=== PATIENT | female | born 1990 | race Caucasian/White ===

== ENCOUNTER 2020-02-03 08:02 | Emergency (ER) | payer BC, SELFPAY ==
[2020-02-03 08:30] VITALS: BP 112/79; PULSE 74; RESP 16; TEMP 36.3; O2SAT 100
--- NOTE | 2020-02-03 08:38 | ED.GENADULT ---
HPI - General Adult General Chief complaint: Upper Respiratory Infection Stated complaint: sore throat Time Seen by Provider: 02/03/20 08:38 Source: patient and RN notes reviewed Mode of arrival: ambulatory Limitations: no limitations History of Present Illness HPI narrative: 29-year-old female presents with complaints of sore throat for 1 day. She arrived to work this morning and noted a , low-grade fever and was sent home. Tylenol last 05:00 with little relief. No high fevers, highest fever 99.6 Fahrenheit, temporal. No drooling, neck or throat swelling. Pain is bilateral. Hurts to swallow. Exacerbation factors consist of eating and drinking. No rhinorrhea or nasal congestion. No voice change. No nausea, vomiting, or abdominal pain. Tolerating liquids well. Denies chills, dyspnea, difficulty swallowing, jaw pain, dental pain, facial pain, foreign body sensation, and rash. Remains active. The patient reports she had COVID-19 12/26/19. The patient reports she is not waiting for the results of a COVID-19 lab test. The patient reports she do not have fever, chills, weakness, or fatigue. The patient reports she do not have a new or worsening cough or shortness of breath. Denies chest pain. The patient reports she do not have any loss of taste, and diarrhea. Denies recent traveling. Denies concerns for COVID-19 or exposures been home with limited outdoor exposure except for essential household needs, work, and return home. At this time, patient is not suspected of having COVID-19. Some parts of this dictation were generated by voice recognition software and may contain typographical and/or grammatical inaccuracies. Related Data Allergies Allergy/AdvReac Type Severity Reaction Status Date / Time latex Allergy Intermediate Itching Verified 02/03/20 08:37 morphine AdvReac Intermediate Rash Verified 02/03/20 08:37 Antibiotic Allergy Mild Itching Uncoded 11/20/14 14:38 Review of Systems Review of Systems: Narrative: CONSTITUTIONAL: Complains of low-grade fever. Denies chills, sweats. EYES: Denies visual changes, redness, discharge. ENT: Denies rhinorrhea, congestion, otalgia. Complains of sore throat. CARDIOVASCULAR: Denies chest pain, palpitations, edema. RESPIRATORY: Denies dyspnea, wheezing, cough. GASTROINTESTINAL: Denies abdominal pain, nausea, vomiting, diarrhea. SKIN: Denies rash or itching. MUSCULOSKELETAL: Denies acute back pain, joint pain, or myalgia. NEUROLOGIC: Denies numbness or focal weakness. PSYCHIATRIC: Denies anxiety or depression. All systems reviewed & are unremarkable except as noted in HPI and below. [facility] Past Medical History Medical History (Updated 02/03/20 @ 08:43 by ANA Soto) , ectopic Surgical History Surgical History (Updated 02/03/20 @ 09:24 by ANA Soto) History of cholecystectomy History of salpingo-oophorectomy Unknown which side, Roxana believes it was the Right Family History Family History (Updated 02/03/20 @ 09:18 by ANA Soto) Father Alive and well Mother Hypertension Social History Social History (Updated 02/03/20 @ 09:18 by ANA Soto) Smoking status: Never smoker Tobacco type: cigarettes Second hand tobacco smoke exposure: No Alcohol intake: never Substance use: never Living arrangements: with family Occupation/Education: occupation Gender identity (if verbalized by the patient): Female Sexual Orientation (if Verbalized by the Patient): Straight or Heterosexual Comments At time of signature, agree with nurse past medical, surgical, social, and family history. There is no relevant family history pertinent to the presenting complaint. Exam Narrative: Exam Narrative: GENERAL: This is a well-nourished, well-developed patient, in no apparent distress. Speaks in full sentences without deficits and ambulates with steady gait without dyspnea. HEAD: normocephalic, atraumati
== END 2020-02-03 09:00 | disposition home or self-care (01) ==
PROVIDERS: Emergency Provider Nurse Practitioner Family
DX: J02.9 Acute pharyngitis, unspecified (principal)
CPT/HCPCS: 87081; 87804; 87880; 99213; G0463

== ENCOUNTER 2020-03-02 13:36 | Emergency (ER) | payer BC, SELFPAY ==
[2020-03-02 13:48] VITALS: BP 108/76; PULSE 76; RESP 16; TEMP 37.1; O2SAT 97
--- NOTE | 2020-03-02 13:52 | ED.GENADULT ---
HPI - General Adult General Chief complaint: Dental/Oral Stated complaint: JAW PAIN Time Seen by Provider: 03/02/20 13:48 Source: patient and RN notes reviewed Mode of arrival: ambulatory Limitations: no limitations History of Present Illness HPI narrative: 30-year-old female presents with complaints of left lower dental pain for the past 7 days. Roxana reports increase in LT dental pain for the past 72 hours with radiating pain into LT ear. Ibuprofen (last 02/29/20), Tylenol (last 02/28/20), and Aleve (last today at 05:10) without relief. Denies any drainage. No fever. No jaw swelling. No neck swelling. No limitation with speaking or swallowing. Has history of dental caries. Has not seen a dentist recently. No dental trauma. No oral lesions. Exacerbating factors consist of chewing on LT side, eating and drinking cold items. No relieving factors. No dentures or bridges. Tolerating liquids well. The patient reports she had COVID-19 12/26/19, no recent diagnose of COVID-19. The patient reports she is not waiting for the results of a COVID-19 lab test. The patient reports she do not have chills, weakness, or fatigue. The patient reports she do not have a new or worsening cough or shortness of breath. Denies chest pain. The patient reports she do not have any rhinorrhea, congestion, sore throat, loss of taste or smell, nausea, vomiting, abdominal pain, and diarrhea. Denies recent traveling. Denies concerns for COVID-19 or exposures been home with limited outdoor exposure except for essential household needs, work, and return home. At this time, patient is not suspected of having COVID-19. Complaints of left lower abdomen pain for 1 day. Roxana reports intermittent LT lower abdominal pain is sharp and stabbing. Aleve today without relief. History of Polycystic ovarian syndrome. No significant pelvic pain. No vaginal discharge. No concerns for STDs. No fever or chills. No nausea, vomiting, or diarrhea. No flank pain. No exacerbating factors. Denies dysuria, hematuria, and vaginal bleeding. No blood in stool or constipation. Last BM today 03/02/2020, normal. Urine output with in normal limits. LMP 12/30/19 concerned she is even after having 2 NEGATIVE HCG test at home. Some parts of this dictation were generated by voice recognition software and may contain typographical and/or grammatical inaccuracies. Related Data Home Medications Medication Instructions Recorded Confirmed letrozole mg 03/02/20 metformin mg 03/02/20 Allergies Allergy/AdvReac Type Severity Reaction Status Date / Time latex Allergy Intermediate Itching Verified 02/03/20 08:37 morphine AdvReac Intermediate Rash Verified 02/03/20 08:37 Antibiotic Allergy Mild Itching Uncoded 11/20/14 14:38 Review of Systems Review of Systems: Narrative: CONSTITUTIONAL: Denies fever, chills, sweats. EYES: Denies visual changes, redness, discharge. ENT: Denies rhinorrhea, congestion, sore throat, otalgia. Complains of LT lower dental pain. CARDIOVASCULAR: Denies chest pain, palpitations, edema. RESPIRATORY: Denies dyspnea, wheezing, cough. GASTROINTESTINAL: Complains of LT lower abdominal pain. Deies nausea, vomiting, diarrhea. GENITOURINARY: Denies dysuria, hematuria, abnormal discharge. SKIN: Denies rash or itching. MUSCULOSKELETAL: Denies acute back pain, joint pain, or myalgia. NEUROLOGIC: Denies numbness or focal weakness. PSYCHIATRIC: Denies anxiety or depression. All systems reviewed & are unremarkable except as noted in HPI and below. ON LICENSE OF [facility] Past Medical History Medical History (Updated 03/03/20 @ 00:00 by Aimee Daernestina) History of PCOS , ectopic Surgical History Surgical History History of cholecystectomy History of salpingo-oophorectomy Unknown which side, Roxana believes it was the Right Family History Family History (Reviewed 03/02/20 @ 15:20 by Emily
== END 2020-03-02 14:39 | disposition home or self-care (01) ==
PROVIDERS: Emergency Provider Nurse Practitioner Family; PCP Family Medicine
DX: K08.89 Other specified disorders of teeth and supporting structures (principal); K02.9 Dental caries, unspecified; R10.32 Left lower quadrant pain; E28.2 Polycystic ovarian syndrome
CPT/HCPCS: 81003; 81025; 99213; G0463

== ENCOUNTER → 2020-03-30 20:06 | Emergency (ER) | payer BC, SELFPAY | END | disposition left against medical advice (07) | PROVIDERS: PCP Family Medicine | DX: Z53.21 Procedure and treatment not carried out due to patient leaving prior to being seen by health care provider (principal) | CPT/HCPCS: 99199 ==

== ENCOUNTER 2020-05-28 09:24 | Emergency (ER) | payer OTHER, BC, SELFPAY ==
[2020-05-28 09:29] VITALS: BP 112/75; PULSE 86; RESP 18; TEMP 36.3; O2SAT 100
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
[2020-05-28] MEDS: ACETAMINOPHEN 500 MG TABLET 1000 MG PO (10:37)
== END 2020-05-28 10:48 | disposition home or self-care (01) ==
PROVIDERS: Emergency Provider Emergency Medicine; PCP Family Medicine
DX: S09.90XA Unspecified injury of head, initial encounter (principal); E28.2 Polycystic ovarian syndrome; V43.02XA Car driver injured in collision with other type car in nontraffic accident, initial encounter
CPT/HCPCS: 99282; A9270

== ENCOUNTER 2020-09-24 10:06 | Outpatient (CLI) | payer BC, SELFPAY ==
[2020-09-28 05:32] LABS: Prolactin 13.3 ng/mL (***)
== END 2020-09-24 10:07 | disposition home or self-care (01) ==
PROVIDERS: PCP Family Medicine; Visit Provider Surgery
DX: N64.4 Mastodynia (principal); N64.52 Nipple discharge
CPT/HCPCS: 36415; 84146; 84703

== ENCOUNTER 2020-11-09 10:20 | Outpatient (CLI) | payer BC, SELFPAY ==
--- NOTE | ~2020-11-09 | MM_ITS ---
MM ductogram single duct RT DATE: 11/09/2020 11:37 INDICATION: Right nipple discharge TECHNIQUE: The purpose of the procedure, technique and potential competitions were discussed with the patient. The patient indicated understanding and gave consent. Timeout procedure confirmed proper patient, procedure and proper side. After sterile preparation of the nipple, some milky discharge was elicited by manual compression of t he breast. A stylette was placed at the opening of the discharging duct. The stylet was taped. 3 sepa rate attempted injections were made, with exposure of a single mammographic image each time. There is considerable resistance to the injection. There was no contrast opacification of the ducts despite 3 successive attempts. IMPRESSION: Unsuccessful galactogram, with inability to opacify the ducts proximal to the discharging duct orifice Consider MRI imaging for further evaluation. Reviewed, dictated and finalized at [facility]. Reviewed, dictated and finalized at [facility]. IMPRESSION: Unsuccessful galactogram, with inability to opacify the ducts proxi mal to the discharging duct orifice Consider MRI imaging for further evaluation.
== END 2020-11-09 10:21 | disposition home or self-care (01) ==
PROVIDERS: PCP Family Medicine; Visit Provider Surgery
DX: N64.52 Nipple discharge (principal)
CPT/HCPCS: 77053; Q9966

== ENCOUNTER 2020-12-08 10:33 | Outpatient (CLI) | payer BC, SELFPAY ==
--- NOTE | ~2020-12-08 | MR_ITS ---
MR breast BI wo/w con 12/08/2020 12:52 CDT INDICATION: Nipple discharge TECHNIQUE: MRI of the breasts perform using standard protocol pre-and post IV contrast with the follo wing sequences: Axial T2 STIR, axial T1, axial vibrant T1 with fat suppression precontrast and multip hasic postcontrast. COMPARISON: Outside mammograms dated 09/17/[address] [facility] and [place], [place] FINDINGS: There are no abnormalities on the precontrast sequences. There is mild background parenchym al enhancement. No enhancing lesions following contrast administration. No areas of enhancement jorge ting threshold criteria on CAD analysis. No evidence of signal abnormalities in the axillary or inte rnal mammary node distributions. LEFT BREAST: No signal abnormalities on precontrast sequences. There is mild background parenchymal enhancement. There is a round mass in the central aspect of the left breast measuring 8 x 7 x 6 mm wi th rapid plateau enhancement. Mass is located 5.5 cm posterior to the nipple and 3.7 cm to the skin s urface. No evidence of signal abnormalities in the axillary or internal mammary node distributions. IMPRESSION: 1: Right breast: Negative. No evidence of malignancy. BI-RADS category 1. Recommend annual mammo graphy follow-up. 2: Left breast: 8 mm left breast mass located centrally with rapid plateau enhancement. Left breast ultrasound examination recommended. BI-RADS CATEGORY 0 - INCOMPLETE STUDY, NEED ADDITIONAL IMAGING EVALUATION. Reviewed, dictated and finalized at [facility]. IMPRESSION: 1: Right breast: Negative. No evidence of malignancy. BI-RADS category 1. Recommend annual mammography follow-up. 2: Left breast: 8 mm left breast mass located centrally with rapid plateau enh ancement. Left breast ultrasound examination recommended. BI-RADS CATEGORY 0 - INCOMPLETE STUDY, NEED ADDITIONAL IMAGING EVALUATION.
[2020-12-08 10:57] LABS: Estimated Glomerular Filt Rate > 60
== END 2020-12-08 10:34 | disposition home or self-care (01) ==
PROVIDERS: PCP Family Medicine; Visit Provider Surgery
DX: N64.52 Nipple discharge (principal); N63.25 Unspecified lump in the left breast, overlapping quadrants
CPT/HCPCS: 77049; A9577; C8908

== ENCOUNTER 2020-12-13 04:53 | Emergency (ER) | payer BC, SELFPAY ==
--- NOTE | ~2020-12-13 | XR_ITS ---
EXAMINATION: XR chest 1V portable DATE: 12/13/2020 05:39 INDICATION: Chest pain. TECHNIQUE: A single frontal view of the chest was obtained. COMPARISON: None. FINDINGS: The chest demonstrates clear lungs without pneumonia, pleural effusion, or pneumothorax. Th e heart size is normal. IMPRESSION: 1. No acute cardiopulmonary disease. Reviewed, dictated and finalized at [facility]. 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
--- NOTE | ~2020-12-13 | CT_ITS ---
EXAMINATION: CT soft tissue neck w con DATE: 12/13/2020 06:58 INDICATION: Left-sided neck and throat pain. TECHNIQUE: Computed tomography (CT) of the neck was performed with 75 mL Omnipaque-350 intravenous co ntrast. Automated exposure control and iterative reconstruction technique were employed. The dose-ling gth product was 528.51 mGy-cm. COMPARISON: None FINDINGS: The palatine tonsils are enlarged. The adenoids and lingual tonsils are normal. There are n o pathologically enlarged lymph nodes. The cervical carotid arteries are normal. There is a mucous re tention cyst in left maxillary sinus. The mastoid air cells are normal. There are carious lesions of teeth 18 and 2. IMPRESSION: 1. Enlarged palatine tonsils, consistent with inflammation/infection. No abscess. 2. Dental disease. Reviewed, dictated and finalized at location [facility]. ENSATION AND HRIS ANALYST IMPRESSION: 1. Enlarged palatine tonsils, consistent with inflammation/infection. No absces s. 2. Dental disease.
--- NOTE | 2020-12-13 05:04 | ECG_ITS ---
Measurements Intervals [facility] Rate: 71 P: 6 AK: 126 QRS: 37 QRSD: 86 T: 19 QT: 386 QTc: 421 Interpretive Statements SINUS RHYTHM BASELINE ARTIFACT- I, II, III, AVR, AVL, AVF, V2 NORMAL ECG Electronically Signed On 12-13-2020 6:28:38 [employer] by Kole Richardson D.O.
[2020-12-13 05:08] VITALS: PULSE 66
[2020-12-13 05:10] VITALS: BP 115/82; PULSE 77; RESP 17; O2SAT 100
--- NOTE | 2020-12-13 05:17 | ED.CHESTPAIN ---
HPI - Chest Pain General Chief Complaint: Chest Pain Stated Complaint: CP, left facial numbness Time Seen by Provider: 12/13/20 05:03 Source: RN notes reviewed History of Present Illness HPI narrative: Patient presents emergency department from home for multiple complaints. Patient states over the past several weeks has been having intermittent midsternal chest pain she states the pain will usually last for several seconds be midsternal head and resolved she states that this evening she awoke from sleep with pain in her midsternal chest lasted for approximately 5 minutes and resolved she notes mild associated shortness of breath pain does not radiate she denies any coughing abdominal pain nausea vomiting diarrhea or any other symptoms this evening when she woke she also had severe pain in her left neck and face pain radiates from the left lower jaw up into the face she denies any definitive dental pain Related Data Allergies Allergy/AdvReac Type Severity Reaction Status Date / Time latex Allergy Intermediate Itching Verified 09/24/20 08:56 morphine Allergy Intermediate Hives Verified 09/24/20 08:56 sulfamethoxazole Allergy Hives Verified 09/24/20 08:56 [From Bactrim] tramadol Allergy Hives Verified 09/24/20 08:56 trimethoprim [From Bactrim] Allergy Hives Verified 09/24/20 08:56 Review of Systems Review of Systems: Gen.: Denies fevers or chills Eyes: Denies eye pain or visual change ENT: Denies congestion reports facial pain on left side Respiratory: Reports shortness of breath with chest pain CV: See HPI GI: Denies abdominal pain nausea, emesis or diarrhea Musculoskeletal: Denies back pain or muscle pain Neuro: Denies numbness, tingling, weakness or focal weakness Skin: Denies rash Except as documented, all other systems reviewed and negative [facility] Past Medical History Medical History History of kidney stones History of PCOS , ectopic Surgical History Surgical History History of cholecystectomy History of salpingo-oophorectomy Unknown which side, Roxana believes it was the Right Family History Family History Father Alive and well Hypertension Diabetes mellitus Mother Hypertension Social History Social History Smoking status: Never smoker Tobacco type: cigarettes Second hand tobacco smoke exposure: No Alcohol intake: never Substance use: never Additional occupation/education comments: [employer] Gender identity (if verbalized by the patient): Female Sexual Orientation (if Verbalized by the Patient): Straight or Heterosexual Exam Narrative: APPEARANCE: No acute distress, nontoxic, resting in bed EYES: EOMI HEENT: Normocephalic, atraumatic, TMs clear bilaterally nares patent or mucosa moist erythema exudate posterior pharynx no dental pain no sublingual or tenderness tender palpation of the left submandibular region up into the left lateral face in front of the left ear there is no overlying erythema no definitive swelling no tenderness of the right side of the face sensation is equal in the bilateral face RESPIRATORY: No respiratory distress Clear to auscultation bilaterally with no rhonchi wheezing or rales. CARDIOVASCULAR: Regular rate and rhythm without murmurs rubs or gallops. ABDOMINAL: Soft, nontender, nondistended, no rebound or guarding MUSCULOSKELETAl: Moves all extremities. No clubbing, cyanosis or edema. NEURO: Awake and alert. Following commands, speech normal, no focal deficits, no facial droop SKIN:: Warm, dry. No rashes lesions or abrasions PSYCHIATRIC: Normal affect/mood, Course Course Emergency Course: Patient meets PERC rule criteria and no further testing needs to be performed for pulmonary embolism. Review old records patient has had mild
[2020-12-13 05:36] LABS: Basophils Percent Auto 0.6 % (0.2-1.2); Eosinophils Absolute Auto 0.2 K/mm3 (0-0.3); Immature Granulocyte Absolute 0.03 K/mm3 (0.00-0.031); Immature Granulocyte Percent A 0.4 % (0-0.5); Lymphocytes Absolute Auto 2.22 K/mm3 (0.9-3.2); Lymphocytes Percent Auto 32.2 % (18.3-44.2); Mean Corpuscular HGB Conc 33.3 g/dl (32-36); Mean Corpuscular Hemoglobin 30.2 pg (26-34); Mean Corpuscular Volume 90.7 fl (80-100); Mean Platelet Volume 9.6 fl (7.4-10.4); Monocytes Absolute Auto 0.6 K/mm3 (0.1-0.6); Monocytes Percent Auto 9.1 % (2.6-8.5); Neutrophils Absolute Auto 3.8 K/mm3 (1.3-6.7); Neutrophils Percent Auto 54.7 % (45.5-73.1); Platelet Count Result 284 k/mm3 (150-375); Red Cell Distribution Width 12.9 % (11.5-14.5); White Blood Count 6.9 K/mm3 (4.5-10.0)
[2020-12-13 05:48] LABS: Alanine Aminotransferase 61 U/L (4-35); Albumin Level 4.2 g/dL (3.5-5.1); Alkaline Phosphatase 89 U/L (38-126); Anion Gap 8 mmol/L (8-16); Aspartate Amino Transferase 44 U/L (14-36); Bilirubin,Total 0.4 mg/dL (0.2-1.3); Blood Urea Nitrogen 17 mg/dL (7-17); Calcium 9.1 mg/dL (8.4-10.2); Carbon Dioxide 27 mmol/L (22-30); Chloride 103 mmol/L (98-107); Estimated CRCL calculation 73 ml/min; Estimated Glomerular Filt Rate > 60; Glucose 122 mg/dL (65-110); Lipase 106 U/L (23-300); Potassium 3.8 mmol/L (3.4-5.0); Sodium 138 mmol/L (137-145)
[2020-12-13 05:59] LABS: Troponin I < 0.012 ng/mL (0.000-0.034)
[2020-12-13 06:47] LABS: INR 0.9; Partial Thromboplastin Time 26.8 SECONDS (22.3-36.8); Prothrombin Time 12.1 Seconds (11.1-14.7)
[2020-12-13 06:56] LABS: Add Urine Microscopic? YES; Appearance Urine Cloudy (Clear); Bacteria Urine Trace /hpf; Bilirubin Urine Negative (Negative); Blood Urine 1+ (Negative); Color Urine Yellow (Yellow); Glucose Urine UA Negative (Negative); Ketones Urine Negative (Negative); Leukocyte Esterase Ur Negative LEU/UL (Negative); Mucus Urine Heavy /lpf; Nitrate Urine Negative (Negative); Protein Urine Negative (Negative); Squamous Epithelial Cell Urine Many /hpf (Few); Urobilinogen Urine Negative mg/dL (<2.0); WBC Urine 16-20 /hpf
[2020-12-13 07:11] LABS: Specific Grav Ur 1.034 (1.001-1.035)
[2020-12-13 07:55] VITALS: BP 103/64; PULSE 78; RESP 16; O2SAT 98
== END 2020-12-13 07:57 | disposition home or self-care (01) ==
PROVIDERS: Emergency Provider Emergency Medicine; PCP Family Medicine
DX: R07.89 Other chest pain (principal); M54.2 Cervicalgia
CPT/HCPCS: 36415; 70491; 71045; 80053; 81001; 81025; 83690; 84484; 85025; 85610; 85730; 87081; 87086; 87880; 93005; 96365; 99284; J0131; Q9967

== ENCOUNTER 2021-01-20 10:26 | Outpatient (CLI) | payer BC, SELFPAY ==
--- NOTE | ~2021-01-20 | US_ITS ---
US breast LT complete DATE: 01/20/2021 11:01 INDICATION: Nipple discharge. Left breast mass detected on MR examination. TECHNIQUE: High-resolution Second Look ultrasound imaging was performed for a mass reported in the ce ntral left breast on 12/08/2020 MRI breast examination. Reportedly negative outside recent mammogram and ultrasound examinations. COMPARISON: 12/08/2020 MR breast examination FINDINGS: Imaging by the technologist and by myself as well reveals no evidence of right breast mass lesion. IMPRESSION: BI-RADS Category 4: Suspicious abnormality; biopsy should be considered Recommendation: MR guided breast biopsy; this can be performed at [facility] or [facility] at [facility]. Reviewed, dictated and finalized at [facility]. Reviewed, dictated and finalized at location [facility]. 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
== END 2021-01-20 10:27 | disposition home or self-care (01) ==
LOC: ANHIMG 10:29
PROVIDERS: PCP Family Medicine; Visit Provider Surgery
DX: N63.20 Unspecified lump in the left breast, unspecified quadrant (principal); R92.8 Other abnormal and inconclusive findings on diagnostic imaging of breast
CPT/HCPCS: 76641

== ENCOUNTER 2021-04-18 05:20 | Emergency (ER) | payer BC, SELFPAY ==
[2021-04-18 05:23] VITALS: BP 121/72; PULSE 70; RESP 15; TEMP 37; O2SAT 98
--- NOTE | 2021-04-18 06:06 | ED.GENADULT ---
HPI - General Adult General Chief complaint: Dental/Oral Stated complaint: toothache Time Seen by Provider: 04/18/21 05:59 History of Present Illness HPI narrative: Patient is a 31-year-old female presents the emergency department with chief complaint of dental pain. The patient reports he was seen by a dentist earlier this week and was started on clindamycin due to an allergy to amoxicillin. Patient states that she has a cracked tooth that is scheduled to be removed on Sunday. The patient states she has been unable to sleep this evening and reports the pain is worse with movement and improved with rest. Patient denies trismus denies swelling Related Data Home Medications Medication Instructions Recorded Confirmed clindamycin HCl 04/18/21 Allergies Allergy/AdvReac Type Severity Reaction Status Date / Time latex Allergy Intermediate Itching Verified 09/24/20 08:56 morphine Allergy Intermediate Hives Verified 09/24/20 08:56 sulfamethoxazole Allergy Hives Verified 09/24/20 08:56 [From Bactrim] tramadol Allergy Hives Verified 09/24/20 08:56 trimethoprim [From Bactrim] Allergy Hives Verified 09/24/20 08:56 Review of Systems Review of Systems: A 10 system review of systems was completed on the patient and is negative except for what is stated in the HPI. Nursing and ancillary documentation was reviewed. PMFSH Past Medical History Medical History History of kidney stones History of PCOS , ectopic Surgical History Surgical History History of cholecystectomy History of salpingo-oophorectomy Unknown which side, Roxana believes it was the Right Family History Family History Father Alive and well Hypertension Diabetes mellitus Mother Hypertension Social History Social History Smoking status: Never smoker Tobacco type: cigarettes Second hand tobacco smoke exposure: No Alcohol intake: never Substance use: never Additional occupation/education comments: [employer] Gender identity (if verbalized by the patient): Female Sexual Orientation (if Verbalized by the Patient): Straight or Heterosexual Exam Narrative: GENERAL: Well-appearing, well-nourished, and in no acute distress. HEAD: Normocephalic, atraumatic. EYES: PERRLA and EOMI. ENT: Nares clear, no rhinorrhea or epistaxis. Mucous membranes moist. There is a fracture of the left posterior molar on the mandible NECK: Supple. CHEST: Clear to auscultation. No respiratory distress. HEART: Regular rate and rhythm. No murmur heard. Normal peripheral pulses. ABDOMEN: Soft, nontender, nondistended, normal active bowel sounds. EXTREMITIES: Normal range of motion. No edema. SKIN: Warm, dry, no rash. NEURO: No focal deficits. Alert and oriented x3. PSYCH: Normal mood and affect. Course Vital Signs Vital signs: Vital Signs Temperature 37.0 C 04/18/21 05:23 Pulse Rate 70 04/18/21 05:23 Respiratory Rate 15 04/18/21 05:23 Blood Pressure 121/72 04/18/21 05:23 Pulse Oximetry 98 04/18/21 05:23 Temperature 37.0 C 04/18/21 05:23 Pulse Rate 70 04/18/21 05:23 Respiratory Rate 15 04/18/21 05:23 Blood Pressure 121/72 04/18/21 05:23 Pulse Oximetry 98 04/18/21 05:23 Medical Decision Making Vital Signs Vital Signs: Vital Signs Temperature 37.0 C 04/18/21 05:23 Pulse Rate 70 04/18/21 05:23 Respiratory Rate 15 04/18/21 05:23 Blood Pressure 121/72 04/18/21 05:23 Pulse Oximetry 98 04/18/21 05:23 Temperature 37.0 C 04/18/21 05:23 Pulse Rate 70 04/18/21 05:23 Respiratory Rate 15 04/18/21 05:23 Blood Pressure 121/72 04/18/21 05:23 Pulse Oximetry 98 04/18/21 05:23 Discharge Plan Discharge Clinical Impressio
[2021-04-18] MEDS: HYDROcodone/acetaminophen (*CRX) 5-325 MG TABLET 1 TAB PO (06:14)
[2021-04-18 06:18] VITALS: BP 124/72; PULSE 68; RESP 16; O2SAT 99
== END 2021-04-18 06:21 | disposition home or self-care (01) ==
PROVIDERS: Emergency Provider Emergency Medicine; PCP Family Medicine
DX: K08.89 Other specified disorders of teeth and supporting structures (principal); Z87.442 Personal history of urinary calculi; E28.2 Polycystic ovarian syndrome
CPT/HCPCS: 99283; A9270

== ENCOUNTER 2021-11-04 11:54 | Emergency (ER) | payer BC, SELFPAY ==
--- NOTE | ~2021-11-04 | US_ITS ---
EXAMINATION: US OB <=14 wk fetus w TV DATE: 11/04/2021 13:38 INDICATION: Pelvic pain TECHNIQUE: Real-time pelvic ultrasound utilizing both a transvaginal and transabdominal probe was pe rformed. The interpreting radiologist was not present for the study. COMPARISON: None. FINDINGS: The uterus measures 8.7 x 7.0 x 8.5 cm. There is an intrauterine gestational sac.A single living fet us with The crown rump length measures 5.7 cm, which correlates with an estimated gestational age of 12 weeks and 2 days. heart motion is identified measuring 159 beats per minute (bpm) by M-mode Doppler. Of normal cervical length of 4.0 cm. The right ovary measures 3.2 x 1.8 x 2.5 cm. The left ovary measures 2.6 x 2.0 x 2.4 cm. Vascular elise w identified in both ovaries on color Doppler. There is no free fluid in the pelvis. IMPRESSION: 1. Single living fetus with heart rate of 159 bpm. 2. Gestational age by ultrasound of 12 weeks 2 day(s) +/- 1 week and 1 day(s) with ultrasound estima dea date of delivery (YOBANI) of 05/17/2022. Reviewed, dictated and finalized at location A. IMPRESSION: 1. Single living fetus with heart rate of 159 bpm. 2. Gestational age by ultrasound of 12 weeks 2 day(s) +/- 1 week and 1 day(s) with ultrasound estimated date of delivery (YOBANI) of 05/17/2022.
[2021-11-04 12:00] VITALS: BP 136/82; PULSE 99; RESP 18; TEMP 36.3; O2SAT 100
[2021-11-04 12:53] LABS: Alkaline Phosphatase 60 U/L (38-126)
[2021-11-04 12:54] LABS: Alanine Aminotransferase 19 U/L (6-35); Aspartate Amino Transferase 19 U/L (14-36); Blood Urea Nitrogen 9 mg/dL (7-17); Calcium 9.1 mg/dL (8.4-10.2); Carbon Dioxide 20 mmol/L (22-30); Chloride 103 mmol/L (98-107); Estimated Glomerular Filt Rate > 60
[2021-11-04 12:55] LABS: Anion Gap 10 mmol/L (8-16); Bilirubin,Total 0.6 mg/dL (0.2-1.3); Glucose 100 mg/dL (65-110); Lipase 64 U/L (23-300); Potassium 3.5 mmol/L (3.4-5.0); Sodium 133 mmol/L (137-145)
--- NOTE | 2021-11-04 12:55 | ED.ABDPAIN ---
HPI - Abdominal Pain General Chief Complaint: Abdominal Pain Stated Complaint: 12 wks preg, cramping Time Seen by Provider: 11/04/21 12:23 Source: patient Mode of arrival: ambulatory Limitations: no limitations History of Present Illness HPI narrative: This is a 31 year old female approximately 12 weeks GA who presents for evaluation pelvic pain. Patient states she has having intermittent sharp migratory pain in her pelvic. Her pain occurs briefly and resolves. She denies any exacerbating factors. She took tylenol prior to arrival to ER. She has nausea and vomiting that has been consistent throughout her . She was just started on odansteron yesterday. She denies fever, chills, dysuria, vaginal bleeding or abnormal vaginal discharge . She is receiving care at [facility] due to IVF treatments. Related Data Home Medications Medication Instructions Recorded Confirmed ondansetron HCl 4 mg tablet 4 mg PO Q8H PRN Nausea 11/04/21 11/04/21 Allergies Allergy/AdvReac Type Severity Reaction Status Date / Time latex Allergy Intermediate Itching Verified 11/04/21 12:12 morphine Allergy Intermediate Hives Verified 11/04/21 12:12 sulfamethoxazole Allergy Hives Verified 11/04/21 12:12 [From Bactrim] tramadol Allergy Hives Verified 11/04/21 12:12 trimethoprim [From Bactrim] Allergy Hives Verified 11/04/21 12:12 Review of Systems Review of Systems: All systems reviewed & are unremarkable except as noted in HPI and below Constitutional: Constitutional: Denies chills, Denies fatigue and Denies fever(s) Gastrointestinal: Gastrointestinal: Reports abdominal pain, Denies diarrhea, Reports nausea and Reports vomiting Genitourinary: Genitourinary: Denies abnormal vaginal bleeding, Denies nocturia and Reports pelvic pain Musculoskeletal: Musculoskeletal: Denies back pain [facility] Past Medical History Medical History History of kidney stones History of PCOS , ectopic Surgical History Surgical History History of cholecystectomy History of salpingo-oophorectomy Unknown which side, Roxana believes it was the Right Family History Family History Father Alive and well Hypertension Diabetes mellitus Mother Hypertension Social History Social History Smoking status: Never smoker Tobacco type: cigarettes Second hand tobacco smoke exposure: No Alcohol intake: never Substance use: never Additional occupation/education comments: [employer] Gender identity (if verbalized by the patient): Female Sexual Orientation (if Verbalized by the Patient): Straight or Heterosexual Exam Narrative: GENERAL: Well-appearing, well-nourished, and in no acute distress. HEAD: Normocephalic, atraumatic EYES: EOMI, conjunctiva clear without discharge THROAT:Mucous membranes moist, Oropharynx normal without erythema, exudate, peritonsillar swelling or fluctuance NECK: Supple, without lymphadenopathy or mass RESPIRATORY: No respiratory distress, Airway patent, Respirations non-labored, Clear to auscultation without rales, rhonchi or wheeze HEART: Regular rate and rhythm. No murmur heard. Normal peripheral pulses. ABDOMEN: Soft, nontender, nondistended, normal active bowel sounds. No masses. No rebound or guarding, No organomegaly. EXTREMITIES: No edema, normal strength with full range of motion. SKIN: Warm, dry, normal color without rash NEURO: Alert and oriented x3. CN 2-12 grossly intact. No focal deficits. PSYCH: Normal mood and affect. Course Reevaluation(s) Reevaluation #1: Patient states she feels better. US is unremarkable. Labs are unremarkable. She may be having cramping for dehydrations. Date: 11/04/21 Time: 14:45 Vital Signs Vital si
[2021-11-04] MEDS: LACTATED RINGERS 1,000 ML 999 ML IV CONT (13:03)
[2021-11-04 13:17] LABS: Basophils Absolute Auto 0.1 K/mm3 (0.0-0.1); Basophils Percent Auto 0.5 % (0.2-1.2); Eosinophils Absolute Auto 0.1 K/mm3 (0-0.3); Eosinophils Percent Auto 1.4 % (0-4.4); Hematocrit 39.2 % (37.0-47.0); Hemoglobin 13.4 g/dL (12.0-15.0); Immature Granulocyte Absolute 0.07 K/mm3 (0.00-0.031); Immature Granulocyte Percent A 0.7 % (0-0.5); Mean Corpuscular HGB Conc 34.2 g/dl (32-36); Mean Corpuscular Volume 87.9 fl (80-100); Monocytes Absolute Auto 0.8 K/mm3 (0.1-0.6); Monocytes Percent Auto 7.8 % (2.6-8.5); Neutrophils Absolute Auto 6.8 K/mm3 (1.3-6.7); Neutrophils Percent Auto 67.6 % (45.5-73.1); Platelet Count Result 393 k/mm3 (150-375); Red Blood Count 4.46 M/mm3 (4.2-5.4); Red Cell Distribution Width 13.2 % (11.5-14.5)
[2021-11-04 13:25] LABS: Appearance Urine Cloudy (Clear); Bilirubin Urine 1+ (Negative); Blood Urine Trace-lysed (Negative); Glucose Urine UA Negative (Negative); Ketones Urine 3+ mg/dL (Negative); Leukocyte Esterase Ur Negative LEU/UL (Negative); Nitrate Urine Negative (Negative); Protein Urine 1+ mg/dL (Negative); Specific Grav Ur >= 1.030 (1.001-1.035); Urobilinogen Urine 0.2 mg/dL (<2.0); pH Urine 5.5 (5.0-9.0)
[2021-11-04 13:26] LABS: Add Urine Microscopic? YES; Color Urine Dark Yellow (Yellow)
[2021-11-04 13:33] LABS: Bacteria Urine Trace /hpf; Mucus Urine Heavy /lpf; Squamous Epithelial Cell Urine Many /hpf (Few)
[2021-11-04] MEDS: DEXTROSE 5%/LACTATED RINGERS 1,000 ML 1000 ML IV CONT (14:14)
[2021-11-04 15:48] VITALS: BP 122/60; PULSE 74; RESP 16; TEMP 36.8; O2SAT 100
== END 2021-11-04 15:49 | disposition home or self-care (01) ==
PROVIDERS: Emergency Provider General Practice
DX: O26.891 Other specified pregnancy related conditions, first trimester (principal); R10.2 Pelvic and perineal pain; R82.71 Bacteriuria; O99.281 Endocrine, nutritional and metabolic diseases complicating pregnancy, first trimester; E86.0 Dehydration; E28.2 Polycystic ovarian syndrome; Z3A.12 12 weeks gestation of pregnancy; Z90.79 Acquired absence of other genital organ(s); Z90.721 Acquired absence of ovaries, unilateral; Z87.442 Personal history of urinary calculi
CPT/HCPCS: 36415; 76801; 76817; 80053; 81001; 83690; 85025; 87086; 87088; 96360; 96361; 99284; J7120; J7121

== ENCOUNTER 2022-01-30 15:16 | Outpatient (RCR) | payer BC, SELFPAY ==
[2022-01-30 16:00] VITALS: BP 110/74; PULSE 103
== END 2022-04-30 23:59 | disposition home or self-care (01) ==
LOC: ANHOBOP 15:16
PROVIDERS: Visit Provider Obstetrics & Gynecology
DX: O36.8120 Decreased fetal movements, second trimester, not applicable or unspecified (principal); Z3A.24 24 weeks gestation of pregnancy
CPT/HCPCS: 59025

== ENCOUNTER 2024-02-11 00:39 | Emergency (ER) | payer OTHER, SELFPAY ==
--- NOTE | ~2024-02-11 | CT_ITS ---
Noncontrast CT scan of the cervical spine Technique: Multiple contiguous axial [address] images of the cervical spine were obtained and rec onstructed in 2D sagittal and coronal planes on the acquisition scanner. Dose reduction technique was used on this scan by utilizing automated exposure control, adjustment of the mA and/or kV according to patient size. The dose-length product (DLP) was 342.66 mGy-cm. Clinical History: Pain Findings: No fractures or dislocations. There is straightening of the normal cervical lordosis. Inte rvertebral disc spaces are relatively well-preserved. No prevertebral soft tissue swelling. Impression: No fracture or subluxation of the cervical spine. Reviewed, dictated and finalized at location . IRATORY TECH Impression: No fracture or subluxation of the cervical spine.
--- NOTE | ~2024-02-11 | XR_ITS ---
Left elbow Technique: AP, oblique, and lateral views were obtained. Clinical History: Pain Findings: No acute fracture or dislocation is seen. Osseous alignment is anatomic. Joint spaces are p reserved. There is no displacement of the fat pads, and soft tissues are unremarkable. Impression: Unremarkable radiographs. Reviewed, dictated and finalized at location . 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
--- NOTE | ~2024-02-11 | XR_ITS ---
Left Knee Technique: AP, lateral, and oblique views were obtained. Clinical History: Pain Findings: No fracture or dislocation is seen. Osseous alignment is anatomic. Joint spaces are preserv ed without degenerative or erosive change. Soft tissues are unremarkable. No joint effusion is seen. Impression: Unremarkable left knee radiographs. Reviewed, dictated and finalized at [facility]. 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
--- NOTE | ~2024-02-11 | CT_ITS ---
Noncontrast CT scan of the lumbar spine CLINICAL HISTORY: Back pain TECHNIQUE: Axial noncontrast imaging of the lumbar spine was performed. Sagittal and coronal reformat dea images were constructed. Dose reduction technique was used on this scan by utilizing automated ex posure control and iterative reconstruction technique. The dose-length product (DLP) was 1158.99 mGy- cm. FINDINGS: There is no fracture or sublocation of the lumbar spine. Visualized maintained alignment. I ntervertebral disc spaces are well preserved. No significant disc bulge or herniation seen at any lumbar level. No spinal canal stenosis or definit e neural foraminal narrowing seen in the lumbar spine. Paravertebral soft tissues are unremarkable. Impression: No significant abnormality seen. Reviewed, dictated and finalized at [facility]. [employer] Impression: No significant abnormality seen.
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
[2024-02-11 01:29] VITALS: BP 120/81; PULSE 94; RESP 16; TEMP 36.6; O2SAT 96
[2024-02-11 02:57] LABS: BEDSIDEPREGUCG Negative (Negative)
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
--- OUTSIDE RECORDS SUMMARY | 2024-02-17 13:38 | XMS_ITS | Encounter Summary ---
Author Organization [facility] Address [address] [place] [address] Care Team Providers Care Shoe Laster Name Role Phone Kit Arriola MD Primary Care Provider [phone] Reason for Visit * Reason Comments Dizziness Nausea Encounter Details Date Type Department Care Team (Late st Contact Info) Description 04/18/2023 8:05 AM CDT Video Visit [facility] [address] [place] [phone] Priscila Lam APRN-CNP [address] [place] [id number] Acute viral syndrome Social History Tobacco Use Types Packs/Day Years Used Date Smoking Tobacco: Never Smokeless Tobacco: Never PHQ-2 Answer Date Recorded Patient Health Questionnaire-2 Score 0 04/18/2023 Sex and Gender Information Value Date Recorded Sex Assigned at Female 08/14/2021 4:02 PM CDT Gender Identity Female 08/14/2021 4:02 PM CDT Sexual Orientation Not on file documented as of this encounter Progress Notes * Priscila Lam APRN-CNP - 04/18/2023 8:02 AM CDT [facility] [employer] Roxana Briseno is a 33 year old female who presents for evaluation: Chief Complaint Patient presents with ??? Dizziness ??? Nausea Primary Care Physician is Kit Arriola MD. SUBJECTIVE: Patient presents to [facility] for a video visit with symptoms of nausea, vomiting, headache, dizziness and intermittent fever that started yesterday. Requesting help with symptom management and work excuseif needed. No past medical history on file. There is no problem list on file for this patient. Current Outpatient Medications on File Prior to Visit Medication Sig Dispense Refill ??? albuterol HFA (Proventil; Ventolin; Proair) 108 (90 Base) MCG/ACT inhaler Inhale 2 (two) puffs by mouth every 6 hours as needed ??? BUPivacaine PF (Marcaine PF) 0.5 % injection in office ??? meloxicam (Mobic) 15 MG tablet Take 1 (one) tablet by mouth once daily No current facility-administered medications on file prior to visit. Past Surgical History: Procedure Laterality Date ??? MRI BREAST LEFT BIOPSY Left 02/11/2021 MRI BREAST LEFT BIOPSY 02/11/2021 [facility] MRI Social History Socioeconomic History ??? Marital status: Spouse name: Not on file ??? Number of children: Not on file ??? Years of education: Not on file ??? Highest education level: Not on file Occupational History ??? Not on file Tobacco Use ??? Smoking status: Never ??? Smokeless tobacco: Never Vaping Use ??? Vaping Use: Never used Substance and Sexual Activity ??? Alcohol use: Not on file ??? Drug use: Not on file ??? Sexual activity: Not on file Other Topics Concern ??? Not on file Social History Narrative ??? Not on file Social Determinants of Health Financial Resource Strain: Not on file Food Insecurity: Not on file Transportation Needs: Not on file Stress: Not on file Housing Stability: Not on file No family history on file. Current Outpatient Medications Medication Sig Dispense Refill ??? albuterol HFA (Proventil; Ventolin; Proair) 108 (90 Base) MCG/ACT inhaler Inhale 2 (two) puffs by mouth every 6 hours as needed ??? BUPivacaine PF (Marcaine PF) 0.5 % injection in office ??? ibuprofen (Motrin) 600 MG tablet Take 1 (one) tablet by mouth every 6 hours as needed for Pain 30 tablet 0 ??? meclizine (Antivert) 25 MG tablet Take 1 (one) tablet by mouth 3 times daily as needed for Dizziness 30 tablet 0 ??? meloxicam (Mobic) 15 MG tablet Take 1 (one) tablet by mouth once daily ??? ondansetron, disintegrating, (Zofran ODT) 4 MG tablet Take 1 (one) tablet by mouth every 6 hours as needed for Nausea/Vomiting Allow tablet to dissolve on the tongue 12 tablet 0 No current facility-administered medications for this visit. Allergies Allergen Reactions ??? Latex Urticaria and Itching ??? Morphine Urticaria and Itching ??? Tramadol Itching ??? Vancomycin Urticaria and Itching ??? Sulfamethoxazole W-Trimethoprim Urticaria REVIEW OF SYSTEMS: Review of Systems Constitutional: Positive for chills, fever and malaise/fatigue. HENT: Negative. Respiratory: Negative. Cardiovascular: Negative. Gastrointestinal: Positive for nausea and vomiting. Neurological: Positive for dizziness and headaches. OBJECTIVE: General appearance: alert, pleasant and in no distress. There were no vitals taken for this visit. Physical Exam Vitals reviewed: Unable to assess due to video visit. Constitutional: Appearance: Normal appearance. Cardiovascular: Comments: Unable to assess due to video visit. Pulmonary: Effort: Pulmonary effort is normal. No respiratory distress. Abdominal: Comments: No abdominal pain reported on video visit. Neurological: Mental Status: She is alert. No results found for this or any previous visit (from the past 24 hour(s)). ASSESSMENT: Encounter Diagnosis Name Primary? Acute viral syndrome Yes PLAN: Orders Placed This Encounter ??? ondansetron, disintegrating, (Zofran ODT) 4 MG tablet Sig: Take 1 (one) tablet by mouth every 6 hours as needed for Nausea/Vomiting Allow tablet to dissolve on the tongue Dispense: 12 tablet Refill: 0 ??? meclizine (Antivert) 25 MG tablet Sig: Take 1 (one) tablet by mouth 3 times daily as needed for Dizziness Dispense: 30 tablet Refill: 0 ??? ibuprofen (Motrin) 600 MG tablet Sig: Take 1 (one) tablet by mouth every 6 hours as needed for Pain Dispense: 30 tablet Refill: 0 Viral Syndrome (Adult) A viral illness may cause many symptoms such as fever. Other symptoms depend on the part of the body that the virus affects. If it settles in your nose, throat, and lungs, it may cause cough, sore throat, congestion, runny nose, headache, earache and other ear symptoms, or shortness of breath. If it settles in your stomach and intestinal tract, it may cause nausea, vomiting, cramping, and diarrhea. Sometimes it causes generalized symptoms like aching all over, feeling tired, loss of energy, or loss of appetite. A viral illness often lasts anywhere from a few days to a few weeks. But sometimes it lasts longer.In some cases, a more serious infection can look like a viral syndrome in the first few days of theillness. You may need another exam and additional tests to know the difference. Watch for the warning signs listed below for when to get medical advice. Home care Follow these guidelines for taking care of yourself at home: ??? If symptoms are severe, rest at home for the first 2 to 3 days. ??? Stay away from cigarette smoke - both your smoke and the smoke from others. ??? You may use fcek-kon-hgsfnry??acetaminophen or ibuprofen for fever, muscle aching, and headache, unless another medicine was prescribed for this. Antibiotics aren't used to treat viral infections. If you have chronic liver or kidney disease or ever had a stomach ulcer or gastrointestinal bleeding, talk with your healthcare provider before using these medicines. No one who is younger than 18 and ill with a fever should take aspirin. It may cause severe disease or . ??? Your appetite may be poor, so a light diet is fine. Prevent dehydration by drinking 8 to 12, 8-ounce glasses of fluids each day. This may include water; orange juice; lemonade; apple, grape, and cranberry juice; clear fruit drinks; electrolyte replacement and sports drinks; and decaffeinated teas and coffee. If you've been diagnosed with a kidney disease, ask your healthcare provider how muchand what types of fluids you should drink to prevent dehydration. If you have kidney disease, drinking too much fluid can cause it build up in your body and be dangerous to your health. ??? Enkr-ucl-fvguqlz remedies won't shorten the length of the illness. But they may be helpful for symptoms such as cough, sore throat, nasal and sinus congestion, or diarrhea. Don't use decongestants if you have high blood pressure. Follow-up care Follow up with your healthcare provider if you don't get better over the next week. Call 911 Call 911 if any of these occur: ??? Convulsion ??? Feeling weak, dizzy, or like you are going to faint ??? Chest pain, or more than mild shortness of breath When to get medical advice Call your healthcare provider right away if any of these occur: ??? Cough with lots of colored sputum (mucus) or blood in your sputum ??? Chest pain, shortness of breath, wheezing, or trouble breathing ??? Severe headache; face, neck, or ear pain ??? Severe, constant pain in the lower right side of your belly (abdominal) ??? Continued vomiting (can???t keep liquids down) ??? Frequent diarrhea (more than 5 times a day), or blood (red or black color) or mucus in diarrhea ??? Feeling weak, dizzy, or like you are going to faint ??? Extreme thirst ??? Fever of 100.4??F (38??C) or higher, or as directed by your provider I have spent a total of 24minutes. Time was spent reviewing medical history, performing physical exam, documenting, counseling/educating, reviewing plan of care, and prescriptions/work excuse. documented in this encounter Miscellaneous Notes * Clinical References AVS - Priscila Lam APRN-CNP - 04/18/2023 8:26 AM CDT [id number] Viral Syndrome (Adult) A viral illness may cause many symptoms such as fever. Other symptoms depend on the part of the body that the virus affects. If it settles in your nose, throat, and lungs, it may cause cough, sore throat, congestion, runny nose, headache, earache and other ear symptoms, or shortness of breath. If it settles in your stomach and intestinal tract, it may cause nausea, vomiting, cramping, and diarrhea. Sometimes it causes generalized symptoms like aching all over, feeling tired, loss of energy, or loss of appetite. A viral illness often lasts anywhere from a few days to a few weeks. But sometimes it lasts longer.In some cases, a more serious infection can look like a viral syndrome in the first few days of theillness. You may need another exam and additional tests to know the difference. Watch for the warning signs listed below for when to get medical advice. Home care Follow these guidelines for taking care of yourself at home: ?? If symptoms are severe, rest at home for the first 2 to 3 days. ?? Stay away from cigarette smoke - both your smoke and the smoke from others. ?? You may use mxsh-qtc-aobaktt acetaminophen or ibuprofen for fever, muscle aching, and headache, unless another medicine was prescribed for this. Antibiotics aren't used to treat viral infections. If you have chronic liver or kidney disease or ever had a stomach ulcer or gastrointestinal bleeding, talk with your healthcare provider before using these medicines. No one who is younger than 18 andill with a fever should take aspirin. It may cause severe disease or . ?? Your appetite may be poor, so a light diet is fine. Prevent dehydration by drinking 8 to 12, 8-ounce glasses of fluids each day. This may include water; orange juice; lemonade; apple, grape, and cranberry juice; clear fruit drinks; electrolyte replacement and sports drinks; and decaffeinated teas and coffee. If you've been diagnosed with a kidney disease, ask your healthcare provider how much and what types of fluids you should drink to prevent dehydration. If you have kidney disease, drinking too much fluid can cause it build up in your body and be dangerous to your health. ?? Bcgy-rha-vekmpgu remedies won't shorten the length of the illness. But they may be helpful for symptoms such as cough, sore throat, nasal and sinus congestion, or diarrhea. Don't use decongestantsif you have high blood pressure. Follow-up care Follow up with your healthcare provider if you don't get better over the next week. Call 911 Call 911 if any of these occur: ?? Convulsion ?? Feeling weak, dizzy, or like you are going to faint ?? Chest pain, or more than mild shortness of breath When to get medical advice Call your healthcare provider right away if any of these occur: ?? Cough with lots of colored sputum (mucus) or blood in your sputum ?? Chest pain, shortness of breath, wheezing, or trouble breathing ?? Severe headache; face, neck, or ear pain ?? Severe, constant pain in the lower right side of your belly (abdominal) ?? Continued vomiting (can?t keep liquids down) ?? Frequent diarrhea (more than 5 times a day), or blood (red or black color) or mucus in diarrhea ?? Feeling weak, dizzy, or like you are going to faint ?? Extreme thirst ?? Fever of 100.4??F (38??C) or higher, or as directed by your provider Last Reviewed Date: 2021 ?? [id number] [employer]. All rights reserved. This information is not intended as a substitute for professional medical care. Always follow your healthcare professional's instructions. documented in this encounter Plan of Treatment Not on file documented as of this encounter Visit Diagnoses Diagnosis Acute viral syndrome- Primary documented in this encounter Care Teams Shoe Laster Relationship Specialty Start Date End Date Kit Arriola MD [address] [phone] PCP - General Emergency Medicine 10/12/21 documented as of this encounter
--- OUTSIDE RECORDS SUMMARY | 2024-02-17 13:38 | XMS_ITS | Clinical Summary ---
Author Organization [facility] Address [address] [place] [address] Care Team Providers Care Utility Service Worker Name Role Phone Kit Arriola MD Primary Care Provider [phone] Source Comments [facility],non-owned Affiliates and Associated Physician Practices is amultiple site organization consisting of ambulatory clinics and hospital sitesin [place], [place], [place] and [place]. This disclosure is being madepursuant to the Care Everywhere program and may not contain all information available regarding this patient. Last updated 17.[facility] Allergies Active Allergy Reactions Criticality Noted Date Comments Latex Urticaria,Itching High 11/28/2017 Morphine Urticaria,Itching High 02/07/2017 Sulfamethoxazole W-Trimethoprim Urticaria Medium 04/0 10/2022 Tramadol Itching Low 07/19/2020 Vancomycin Urticaria,Itching High 04/16/2020 Medications * Be aware that medications may not be up to date on this document. Alwaysverify current medications with the patient. Medication Sig Dispensed Refills Start Date End Date Status albuterol HFA (Proventil; Ventolin; Proair) 108 (90 Base) MCG/ACT inhaler Inhale 2 (two) puffs by mouth every 6 hours as needed 08/19/2022 Active BUPivacaine PF (Marcaine PF) 0.5 % injection in office 04/10/2023 Active meloxicam (Mobic) 15 MG tablet Take 1 (one) tablet by mouth once daily Active ondansetron, disintegrating, (Zofran ODT) 4 MG tablet Take 1 (one) tablet by mouth every 6 hours as needed for Nausea/Vomiting Allow tablet to dissolve on the tongue 12 tablet 04/18/2023 Active meclizine (Antivert) 25 MG tablet Take 1 (one) tablet by mouth 3 times daily as needed for Dizziness 30 tablet 04/18/2023 Active ibuprofen (Motrin) 600 MG tablet Take 1 (one) tablet by mouth every 6 hours as needed for Pain 30 tablet 04/18/2023 Active Active Problems No known active problems Social History Tobacco Use Types Packs/Day Years Used Date Smoking Tobacco: Never Smokeless Tobacco: Never PHQ-2 Answer Date Recorded Patient Health Questionnaire-2 Score 0 04/18/2023 Sex and Gender Information Value Date Recorded Sex Assigned at Female 08/14/2021 4:02 PM CDT Gender Identity Female 08/14/2021 4:02 PM CDT Sexual Orientation Not on file Last Filed Vital Signs Vital Sign Reading Time Taken Comments Blood Pressure - - Pulse - - Temperature - - Respiratory Rate - - Oxygen Saturation - - Inhaled Oxygen Concentration - - Weight 83.9 kg (185 lb) 10/12/2021 3:30 PM CDT Height - - Body Mass Index - - Plan of Treatment Health Maintenance Due Date Last Done Comments PAP SMEAR 1992 HIV SCREENING 02/26/2007 HEPATITIS C SCREENING 02/22/2010 DTAP/TDAP/TD VACCINES (1 - Tdap) 02/26/2011 HEPATITIS B VACCINE (1 of 3 - 19+ 3-dose series) 02/26/2011 COVID-19 VACCINE ( - 2023-2 5 season) 2023 03/01/2020, 02/09/2020 INFLUENZA VACCINE (#1) 2023 11/15/2021 DEPRESSION SCREENING 02/06/2024 04/18/2023, 10/12/2021 ZOSTER VACCINE (1 of 2) 02/26/2042 HIB VACCINE Aged Out No longer eligi ble based on patient's age to complete this topic HPV VACCINE Aged Out No longer eligi ble based on patient's age to complete this topic MENINGOCOCCAL VACCINE Aged Out No josee afsaneh eligible based on patient's age to complete this topic PNEUMOCOCCAL VACCINE Aged Out No long er eligible based on patient's age to complete this topic Medical Devices Implanted Type Area Double Surface Operator Device Identifier Shelf Expiration Date Model / Serial / Lot Mrkr Mri Gd Rgd Trimark Brstbio Cork Ti Implanted:Qty: 1 on 02/11/2021 by Zina Booth MD at [facility] Left: Breast [employer] 03/02/2022 TRIMARK TD [id number] / / [id number] Care Teams Utility Service Worker Relationship Specialty Start Date End Date Kit Arriola MD [address] [phone] PCP - General Emergency Medicine 10/12/21
--- OUTSIDE RECORDS SUMMARY | 2024-02-17 13:38 | XMS_ITS | Data Portability ---
Author Organization [place] - [facility], Main Office Address [address] [place] [address] Assessment Encounter Date Assessment Date Assessment LastModified by Organization Details LastModified Time 03/23/2023 03/23/2023 33 yo patient pr esents today with bilateral knee pain that has been going on for at least 3 months. She denies any injury or issues with the knees in the past. The left is more painful than the right. She states that she has pain when the knees are flexed, so she tries to keep them straight most of the time. She has a 10 month old baby and finds it hard to bend down and pick them up without pain. She is also having pain with sleeping at night. For treatment she has tried ibuprofen and wearing a brace, which has not helped. Review of systems per patient questionnaire. Imaging: xrays reviewed of bilateral knees show no acute bony abnormality or fracture. Preserved joint spaces throughout. Physical exam: No pain with palpitation around the knees. Pain with deep flexion bilaterally. ROM 0-150. Positive mcmurrays. Stable lachmans, varus/valgus stress. Sensation intact. We will start with a course of PT exercises to work on stretching and strengthening the knees. She would like to do these at home on her own. We will also order meloxicam for anti-inflammatory therapy. We disussed that since she is having pain that keeps her up at night we could try cortisone injections. She would like to try the conservative measures first and see if they work. If she is still in pain at her next appointment we will try injections. We can see her back in 4-6 weeks. Not available 03/23/2023 16:28:54 04/10/2023 04/10/2023 33 yo patient presents today for follow up of bilateral knee pain. She has been experiencing pain with deep bending and squatting. At her last appointment we had her start PT exercises at home and ordered meloxicam. She does not feel like either have been helpful and states her pain has gotten worse. The pain is keeping her up at night. Physical exam: No pain with palpitation around the knees. Pain with deep flexion bilaterally. ROM 0-150. Positive mcmurrays. Stable lachmans, varus/valgus stress. Sensation intact. Today we discussed the risks and benefits of cortisone injections. She elected to proceed with bilateral injections today. We will have her stop the meloxicam and switch her to celebrex to see if that gives her more relief. We will see her back as needed for pain. She is in agreement with this plan. 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 We talked about treatment options she is going to molded goods spot picker some patellar guide brace is we talked about what kind to get she should wear these when she is up and about. She will continue with the Celebrex 200 mg daily we also are going to get her started with a course of formal physical therapy. I also will give her some prednisone to take for short course she will hold off on the Celebrex while she is taking the prednisone. We did talk about the possibility of doing gel shots in both knees she would like to try these we will see if we can get these set up for her I will see her back at that time and proceed with viscosupplementation both knees. She voiced understanding agrees above plan she will call for any further problems difficulties or questions. [email or web address] Not available 06/15/2023 15:18:42 Plan of Treatment Reminders Order Date Submit Date Provider Last Modified By Organization Details Last Modified Time Details Appointments None recorded. Lab None recorded. Referral physical therapist referral - Please schedule pt for michael knees patella femoral pain, VMO strengtheni ng. Thanks 2023 024 JAZZY Martínez, [address], [place], [address], 10:03:15 Procedures injection/a spiration joint/bursa (PROC) - in office procedure, administere d by provider 2023 024 [email or web address] 3 In-Office Order, Internal Use Only DO Not Attach Compendium DO Not Attach Compendium, Do Not Delete/merge, [id number] 10:16:19 Surgeries None recorded. Imaging XR, knee, 3 view 2023 024 [email or web address] [facility] [place], [address], [place], [address], 4 10:58:25 Medication Orders Mobic 15 mg tablet 2023 024 [email or web address] [facility] [place], [address], 4 10:58:25 celecoxib 200 mg capsule 2023 024 [email or web address] [facility] [place], [address], 22:44:50 Kenalog 10 mg/mL suspension for injection 2023 024 [email or web address] Not available 22:44:50 Marcaine (PF) 0.5 % (5 mg/mL) injection solution 2023 024 [email or web address] Not available 22:44:50 prednisone 10 mg tablets in a dose pack 2023 024 [email or web address] [facility], [address] [place], [address], 16:05:04 Patient TargetsNo targets recorded. Patient Instructions Encounter Date Encounter Id Patient Instructions Last Modified By Organization Details Last Modified Time 06/15/2023 [id number] viscosupplementa tion treatment* - Michael knees Not available 07/03/2023 17:25:59 Reason for Referral Physical Therapist Referral for Pain of bilateral knee joints Michael knees Please schedule pt for michael knees patella femoral pain, VMO strengthening. Thanks Referring Physician: Rene Rouse, Orthopedic Surgery, Encounter Date: 06/15/2023 Results Created Date Observation Date Name Description Value Unit Range Abnormal Flag Note LastModifiedBy Organization Detail LastModifiedTime 03/23/19 24 XR, knee, 3 view No observ ation record ed. [email or web address] [facility] [place] [address], [place], [address], 03/23/2023 16:23:35 Result Notes None recorded. Problems Name Problem SNOMED Code Status Onset Date Resolution Date Notes Provider Name and Address Organization Details Recorded Time Pain of bilateral knee joints 3864158868772 04 Active 2023 Jane Bonilla CNA null, [employer] 4 10:39:32 Bilateral osteoarthri tis of knees 0799367031299 07 Active 2023 CRESENCIO Benedict [address], [address], [place], [address], [employer] 4 15:18:48 Chondromala radha of bilateral patellas 4023419973911 9100 Active 2023 CRESENCIO Benedict [address], [address], [place], [address], [employer] 15:19:02 Problem Notes None recorded. Procedures Surgical History Date Name Laterality Status Provider Name and Address Organization Details Recorded Time 04/10/19 24 Ortho - Cortisone Injection completed Paty Cruz NP [address], [address], [place], [address], [employer] 04/10/2023 21:02:16 cholecystectomy completed Jane Bonilla CNA [employer] 03/23/2023 10:39:03 Imaging Results Imaging Date Name Status LastModified by Organiz ation Details LastModified Time 03/23/2023 XR, knee, 3 view completed [email or web address] [facility] [place] [address], [place], [address], 03/23/2023 16:23:35 Procedure Notes None recorded. Medical Equipment None Reported. Allergies Allergen ID Allergen Name Allergen Category Reaction Reaction Severity Criticality Documentation Date Start Date Code Code System Note Provider Name and Address Organization Details Recorded Time 78581 morphine medicatio n hives Not available Not available 03/23/2023 7052 RxNorm Jane ChadMONTY ramíerz, [place] [facility] [place] [employer] 10:37:27 Medications Name Sig Start Date Stop Date Status Note LastModified by Organization Details LastModified Time celecoxib 200 mg capsule Take 1 capsule every day by oral route. active Not Available Not Available No t Available amoxicillin 500 mg capsule 03/20 completed Not Available Not Available Not Available metformin 500 mg tablet TAKE 1 2 TABLET BY MOUTH IN THE MORNING AND EVENING FOR 7 DAYS THEN 1 IN THE MORNING AND 1 IN THE EVENING FOR 7 DAYS THEN 1 IN THE MORNING 1 03/20 completed Not Available Not Available Not Available prednisone 10 mg tablet active Not Available Not Available Not Available clindamycin HCl 300 mg capsule 03/23 completed Not Available Not Available Not Available cetirizine 10 mg tablet TAKE 1 TABLET BY MOUTH ONCE DAILY 03/20 completed Not Available Not Available Not Available ibuprofen 800 mg tablet active Not Available Not Available Not Available meloxicam 15 mg tablet TAKE 1 TABLET BY MOUTH ONCE DAILY active Not Available Not Available No t Available prednisone 20 mg tablet TAKE 1 TABLET BY MOUTH EVERY DAY 03/20 completed Not Available Not Available Not Available tramadol 50 mg tablet TAKE 1 TABLET BY MOUTH EVERY 6 TO 8 HOURS NEEDED FOR PAIN 03/20 completed Not Available Not Available Not Available acetaminoph en 500 mg tablet 03/23 completed Not Available Not Available Not Available ketorolac 10 mg tablet TAKE 1 TABLET BY MOUTH EVERY 4 TO 6 HOURS NEEDED 03/20 completed Not Available Not Available Not Available prednisone 10 mg tablets in a dose pack Take 1 tab by mouth, 3 times a day for 3 daysTake 1 tab by mouth 2 times a day for 2 daysTake 1 tab by mouth once a day for 1 day 2023 active Not Available Not Available Not Avai lable progesteron e 50 mg/mL intramuscul ar oil active Not Available Not Available Not Available amoxicillin 875 mg tablet TAKE 1 TABLET BY MOUTH TWICE DAILY FOR 10 DAYS 06/12 completed Not Available Not Available Not Available Kenalog 10 mg/mL suspension for injection in office 2023 active [facility]: 0003- 0494- 20 Not Available Not Available Not Available meclizine 25 mg tablet TAKE 1 TABLET BY MOUTH THREE TIMES DAILY NEEDED FOR DIZZINESS active Not Available Not Available No t Available dexamethaso ne 0.75 mg tablet TAKE 1 TABLET BY MOUTH ONCE DAILY active Not Available Not Available No t Available docusate sodium 100 mg capsule 03/23 completed Not Available Not Available Not Available lidocaine HCl 2 % mucosal solution SWISH AND SPIT 5 ML IN MOUTH EVERY 4 HOURS NEEDED FOR MOUTH/THR OAT PAIN FOR UP TO 7 DAYS active Not Available Not Available No t Available estradiol 2 mg tablet TAKE TABLETS DIRECTED; TAKE 1 TABLET BY MOUTH TWICE DAILY FOR 1 WEEK; INCREASE TO THREE TIMES DAILY FOR THE FOLLOWING WEEKS DIRECTED ON CYCLE CALENDAR active Not Available Not Available No t Available folic acid 1 mg tablet TAKE 1 TABLET BY MOUTH ONCE DAILY active Not Available Not Available No t Available ibuprofen 600 mg tablet TAKE 1 TABLET BY MOUTH EVERY 6 HOURS NEEDED FOR PAIN active Not Available Not Available No t Available letrozole 2.5 mg tablet TAKE 1 TABLET BY MOUTH ONCE DAILY ON DAYS 3 7 OF MENSTRUAL CYCLE 03/20 completed Not Available Not Available Not Available albuterol sulfate HFA 90 mcg/actuati on aerosol inhaler INHALE 2 PUFFS BY MOUTH EVERY 6 HOURS NEEDED FOR SHORTNESS OF BREATH FOR WHEEZING 03/23 completed Not Available Not Available Not Available ondansetron 4 mg disintegrat ing tablet DISSOLVE 1 TABLET IN MOUTH EVERY 6 HOURS NEEDED FOR NAUSEA AND VOMITING (ALLOW TABLET TO DISSOLVE ON THE TONGUE) active Not Available Not Available No t Available fluticasone propionate 50 mcg/actuati on nasal spray,suspe nsion USE 1 SPRAY(S) IN EACH NOSTRIL TWICE DAILY 03/20 completed Not Available Not Available Not Available leuprolide 1 mg/0.2 mL subcutaneou s kit INJECT 5 TO 10 UNITS UNDER THE SKIN EVERY MORNING DIRECTED ON CYCLE CALENDAR active Not Available Not Available No t Available amoxicillin 875 mg-potassiu m clavulanate 125 mg tablet TAKE 1 TABLET BY MOUTH TWICE DAILY WITH FOOD 03/20 completed Not Available Not Available Not Available ciprofloxac in 0.3 %-dexametha sone 0.1 % ear drops,suspe nsion SHAKE LIQUID AND INSTILL 4 DROPS TO LEFT EAR TWICE DAILY FOR 7 DAYS 03/23 completed Not Available Not Available Not Available Marcaine (PF) 0.5 % (5 mg/mL) injection solution in office 2023 active [id number] 4exp 5 Not Available Not Available Not Available ORTHOVISC 30 mg/2 mL intra-artic ular syringe Inject 2 mL every week by intra-art icular route as directed. 2023 active Not Available Not Available Not Avai lable Euflexxa 10 mg/mL (mw 2.4-3.6 million) intra-artic ular syringe active Not Available Not Available Not Available Enskyce 0.15 mg-0.03 mg tablet active Not Available Not Available Not Available Vitals Date Recorded Body height Body mass index (BMI) Body weight Provider Name and Address Organization Details Last Updated DateTime 03/23/2023 165.1 cm 20 kg/m2 11931.08 g Jane Bonilla CNA [facility] [employer] 03/23/2023 10:36:33 Date Recorded Body height Body mass index (BMI) Body weight Provider Name and Address Organization Details Last Updated DateTime 04/10/2023 165.1 cm 22.5 kg/m2 04221.97 g Lili Schuster [facility] [employer] [facility] 04/10/2023 09:45:44 Date Recorded Body height Body mass index (BMI) Body weight Provider Name and Address Organization Details Last Updated DateTime 06/15/2023 165.1 cm 21.6 kg/m2 61549.01 g Isamar Adrian [facility] [employer] [facility] 06/15/2023 14:35:31 Social History Question Answer Notes LastModified by Organizat ion Details LastModified Time Tobacco Smoking Status Unknown If Ever Smoked MONTY Garcia [facility] [employer] 03/23/2023 10:38:45 What Is Your Level Of Alcohol Consumption? None Information not available 03/23/2023 Sex: Unknown Functional Status None recorded. Mental Status None recorded. Family History Nothing Reported. Medical History No medical history recorded. Gynecological HistoryNo gynecological history recorded. Obstetrics History GPAL:G 0 P 0 0 0 0 Past Encounters Encounter ID Performer Location Encounter Start Date Encounter Closed Date Diagnosis/Indication Diagnosis SNOMED-CT Code Diagnosis ICD10 Code Diagnosis Note [id number] Paty Cruz, GABRIELLE [facility] [place] [address] [place], [place] [address] 03/23/2023 10:26:42 03/23/2023 10:59:30 Pain of bilateral knee joints 7002886489 97717 M25.561 M25.394 [id number] Paty Cruz NP [facility] [place] [address] [place], [place] [address] 04/10/2023 09:32:14 04/10/2023 10:30:57 Pain of bilateral knee joints 5476594796 50061 M25.561 M25.431 [id number] CRESENCIO Benedict [facility] [place] [address] [facility] [address] [place], [place] [address] 06/15/2023 14:33:55 06/15/2023 15:29:20 Pain of bilateral knee joints 6481060290 42076 M25.561 M25.562 Bilateral osteoarthritis of knees 8418239105 79797 M17.0 Chondromal acia of bilateral patellas 0527526486 3057046 M22.41 M22.42 Health Concerns Section Related Observation LastModified by Organization Detai ls LastModified Time None Recorded Concern Status LastModified by Organization Details LastModified Time None Recorded Advance Directives Directive None Recorded Payers Encounter Date Sequence Insurance Name Policy Number Policy Banegas Covered Member ID Banegas Member ID Guarantor Name 03/23/2023 1 [place] [id number] Roxana Briseno [id number] Roxana Briseno 03/23/2023 2 [place] Roxana Briseno [id number] Roxana Briseno 04/10/2023 1 [place] [id number] Roxana Briseno [id number] Roxana Briseno 04/10/2023 2 [place] Roxana Briseno [id number] Roxana Briseno 06/15/2023 1 [place] [id number] Roxana Briseno [id number] Roxana Briseno 06/15/2023 2 [place] [employer] [place] Roxana Briseno [id number] Roxana Briseno Notes Date Note Type Note Provider Name and Address Organization Details Recorded Time 06/15/2023 text/html Patient returns with bilateral knee pain she states she was seen by our nurse practitioner 2 months ago with bilateral knee pain she had been prescribed Celebrex she has been taking this daily she was given an exercise sheet to work on her knee range of motion and strengthening and was also given bilateral knee injections with cortisone. She states if anything her knees hurt worse now than they did previously. Denies any new trauma or injury no effusion or swelling no erythema heat or other signs of infection. The pain is localized anteriorly for the most part. Her previous x-rays reviewed with her today she does have significant narrowing in the patellofemoral articulations bilaterally she has moderate osteoarthritis and chondromalacia with crepitation and some maltracking of the right patella more than the left. She comes in today for recheck and evaluation to talk about further treatment options from here. She does report if she sits with her knees bent for too long of a time she has more aching if she sleeps with her knees bent it wakes her up she can not sit in a chair or a long car ride with the knees bent because she starts to get more throbbing and aching. Denies any mechanical symptoms other than popping and crepitation in the patellofemoral articulations. CRESENCIO [place] [address] [facility], [facility] [address], [place], [address], [facility] [facility] 06/15/2023 15:20:05 OBGyn Episode No OBEpisode recorded.
--- OUTSIDE RECORDS SUMMARY | 2024-02-17 13:38 | XMS_ITS | Referral Summary ---
Author Organization [facility] Address [address] [place] [address] Care Team Providers Care [employer] Supervisor Name Role Phone Kit Arriola MD Primary Care Provider [phone] Source Comments [facility],non-owned Affiliates and Associated Physician Practices is amultiple site organization consisting of ambulatory clinics and hospital sitesin [place], [place] and [place]. This disclosure is being madepursuant to the Care Everywhere program and may not contain all information available regarding this patient. Last updated 17.[facility] Allergies Active Allergy Reactions Criticality Noted Date [...] Mass Index - - Plan of Treatment Not on file Medical Devices Implanted Type Area Rotating Equipment Specialist Device Identifier Shelf Expiration Date Model / Serial / Lot Mrkr Mri Gd Rgd Tr[employer]ark Brstbio Cork Ti Implanted:Qty: 1 on 02/11/2021 by Zina Booth MD at [facility] Left: Breast [employer] 03/02/2022 TRIMARK TD 13MR / / [id number] Care Teams Industrial Chemical[employer] Supervisor Relationship Specialty Start Date End Date Kit Arriola MD [address] [id number] PCP - General Emergency Medicine 10/12/21
--- OUTSIDE RECORDS SUMMARY | 2024-02-17 13:38 | XMS_ITS | Patient Health Summary ---
Author Organization [facility] Address [address] [place] [address] Care Team Providers Care Sample Driller Name Role Phone Kit Arriola MD Primary Care Provider [phone] Note from [facility],non-owned Affiliates and Associated Physician Practices is amultiple site organization consisting of ambulatory clinics and hospital sitesin [place], [place], [place] and [place]. This disclosure is being madepursuant to the Care Everywhere program and may not contain all information available regarding this patient. Last updated 17.[facility] Allergies * Latex(Urticaria,Itching) -High Criticality * Morphine(Urticaria,Itching) -High Criticality * Sulfamethoxazole W-Trimethoprim(Urticaria) -Medium Criticality * Tramadol(Itching) -Low Criticality * Vancomycin(Urticaria,Itching) -High Criticality Medications * Be aware that medications may not be up to date on this document. Alwaysverify current medications with the patient. * albuterol HFA (Proventil; Ventolin; Proair) 108 (90 Base) MCG/ACT inhaler (Started 08/19/2022) Inhale 2 (two) puffs by mouth every 6 hours as needed * BUPivacaine PF (Marcaine PF) 0.5 % injection(Started 04/10/2023) in office * meloxicam (Mobic) 15 MG tablet Take 1 (one) tablet by mouth once daily * ondansetron, disintegrating, (Zofran ODT) 4 MG tablet(Started 04/18/2023) Take 1 (one) tablet by mouth every 6 hours as needed for Nausea/Vomiting Allow tablet to dissolve on the tongue * meclizine (Antivert) 25 MG tablet(Started 04/18/2023) Take 1 (one) tablet by mouth 3 times daily as needed for Dizziness * ibuprofen (Motrin) 600 MG tablet(Started 04/18/2023) Take 1 (one) tablet by mouth every 6 hours as needed for Pain Active Problems No known active problems Social [...] - - Body Mass Index - - Medical Devices Implanted Type Area Ethanol Operator Device Identifier Shelf Expiration Date Model / Serial / Lot Mrkr Mri Gd Rgd Trimark Brstbio Cork Ti Implanted:Qty: 1 on 02/11/2021 by Zina Ely MD at [facility] Left: Breast [employer] 03/02/2022 TRIMARK TD 13MR / / [id number] Procedures * MAMMO LEFT POST CLIP OR WIRE(Performed 02/11/2021) Performed for Abnormal finding on breast imaging * MRI BREAST LEFT BIOPSY(Performed 02/11/2021) Performed for Abnormal finding on breast imaging * PATHOLOGY TISSUE(Performed 02/11/2021) Performed for Abnormal finding on breast imaging * CREATININE - POCT INTERFACED(Performed 02/11/2021) Results * MAMMO LEFT POST CLIP OR WIRE (02/11/2021 3:23 PM GEOTHERMAL FIELD TECHNICIAN) Anatomical Region Laterality Modality Breast Left Mammography 02/11/2021 3:01 PM GEOTHERMAL FIELD TECHNICIAN Addenda Addendum by Zina Ely MD on 02/15/2021 3:50 PM GEOTHERMAL FIELD TECHNICIAN ORIGINAL REPORT EXAM: MRI GUIDED VACUUM-ASSISTED CORE NEEDLE BIOPSY AND POST BIOPSY DIGITAL MAMMOGRAM ??LEFT BREAST (COMBINED REPORT) HISTORY: This is a 30-year-old female with history of bloody nipple discharge. Outside MRI scan of the breast dated 12/08/2020 from [facility] demonstrated a 0.8 cm enhancing mass in the central left breast. There was no ultrasound correlate and mammogram was unremarkable. Breast MRI biopsy requested for further evaluation. COMPARISON: Prior breast MRI scan from [facility] 12/25/2020. CONTRAST: 6 cc of Gadovist. TECHNIQUE AND FINDINGS: Preprocedure images were reviewed. The procedure and its risks and benefits were discussed with the patient, including, but not limited to, bleeding, infection, allergy, and a nondiagnostic specimen. Written and verbal informed consent was obtained and documented. After confirming the correct breast for biopsy, this breast was marked with a marking pen. ??Prior to the procedure a hospital ??timeout procedure was performed, including verification of the laterality of the breast for biopsy. The patient was then placed in a prone position on the MRI table. Patient was imaged in the dedicated breast coil with a compression side plate and localization grid in place. Fiducial marker was placed in the appropriate region of the grid for localization. Multiplanar multisequence MR imaging of both breasts before and following the administration of intravenous gadolinium contrast was performed. Dynamic phase imaging was performed. The exam was processed and interpreted on the MRI [employer] workstation for biopsy purposes. MRI FINDINGS: Contrasted MRI demonstrates a 0.8 cm enhancing mass in the central subareolar breast, 4.2 cm from the nipple. This is best seen at table position 1.32. Utilizing the DynaCAD workstation, the appropriate location on the sideplate grid was calculated and identified. The overlying skin was cleaned with ChloraPrep and and draped in the usual sterile fashion. Local anesthesia was given with 5 cc of 1% Lidocaine buffered with Sodium Bicarbonate ??within the skin and deeper anesthesia with 20 cc of 1% Lidocaine with Epinephrine, buffered withSodium Bicarbonate. Through the compression grid guidance device, a trocar introducer was inserted to the calculated depth. An MR visible blunt tipped trocar was inserted through the introducer. Axial acquisition and sagittal reconstruction MRI was obtained to confirm location of the trocar within the targeted lesion. Subsequently, the trocar was removed and the 9-gauge vacuum assisted core biopsy device was inserted to the appropriate depth. ??Multiple samples were obtained through the area of concern. A post biopsy axial T1 weighted series demonstrated a biopsy cavity within the area of the enhancement and no significant hematoma. Through the introducer, a arslan marker clip was placed within the biopsy cavity. The tissue samples were placed in formalin and delivered to the pathology department by the technologist. Hemostasis was achieved, and the small wound was closed with Exofin. The patient was then accompanied by our nurse to the breast imaging department for her postprocedure mammogram. Estimated blood loss: Minimal Postbiopsy mammogram for clip placement: A two-view left digital mammogram with craniocaudal and true lateral projections was obtained to check clip placement. Breast Composition: Category C: Heterogeneously dense, which may obscure small masses. The clip is in good position at the biopsy site. Assessment: ??POST-PROCEDURE MAMMOGRAM FOR MARKER PLACEMENT. An ice pack was applied over the dressing on the breast. The patient tolerated the procedures well, with no immediate post biopsy complications. The patient was given verbal, as well as written post-procedure instructions (including Exofin instructions) and was released from the department in good condition. The attending physician, Zina Ely MD, was present for and performed the entire procedure. IMPRESSION: 1. ??Technically successful, uncomplicated MRI guided vacuum assisted needle biopsy performed of a 0.8 cm mass in the 12 o'clock position, 4 cm from the nipple, of the left breast. 2. ??Arslan-shaped tissue marker clip placed at the biopsy site. 3. ??Pathology results are pending. We will notify the patients of the pathology findings and recommendations. An addendum will be rendered to this report when the pathology results are made available. This report was electronically signed by ZINA ELY M.D. ??on 02/11/2021 4:04 PM . ADDENDUM #1 ADDENDUM: PATHOLOGY RESULTS Pathology report per Dr. 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 There is no atypia or malignancy. This is a benign lesion The pathology report is concordant with the imaging findings. If patient has persistent bloody nipple discharge, then breast surgical consultation is recommended. Otherwise, pending no interval breast concerns, screening mammography recommended at age 42. Ramona Varela RN will notify the patient of the biopsy findings and recommendations on 02/15/2021. Results were also provided to the referring physician via [employer]. This report was electronically signed by ZINA ELY M.D. ??on 02/15/2021 3:47 PM . Impressions 02/11/2021 4:04 PM GEOTHERMAL FIELD TECHNICIAN IMPRESSION: 1. ??Technically successful, uncomplicated MRI guided vacuum assisted needle biopsy performed of a 0.8 cm mass in the 12 o'clock position, 4 cm from the nipple, of the left breast. 2. ??Arslan-shaped tissue marker clip placed at the biopsy site. 3. ??Pathology results are pending. We will notify the patients of the pathology findings and recommendations. An addendum will be rendered to this report when the pathology results are made available. This report was electronically signed by ZINA ELY M.D. ??on 02/11/2021 4:04 PM . Narrative 02/11/2021 4:04 PM GEOTHERMAL FIELD TECHNICIAN EXAM: MRI GUIDED VACUUM-ASSISTED CORE NEEDLE BIOPSY AND POST BIOPSY DIGITAL MAMMOGRAM ??LEFT BREAST (COMBINED REPORT) HISTORY: This is a 30-year-old female with history of bloody nipple discharge. Outside MRI scan of the breast dated 12/08/2020 from [facility] demonstrated a 0.8 cm enhancing mass in the central left breast. There was no ultrasound correlate and mammogram was unremarkable. Breast MRI biopsy requested for further evaluation. COMPARISON: Prior breast MRI scan from [facility] 12/25/2020. CONTRAST: 6 cc of Gadovist. TECHNIQUE AND FINDINGS: Preprocedure images were reviewed. The procedure and its risks and benefits were discussed with the patient, including, but not limited to, bleeding, infection, allergy, and a nondiagnostic specimen. Written and verbal informed consent was obtained and documented. After confirming the correct breast for biopsy, this breast was marked with a marking pen. ??Prior to the procedure a hospital ??timeout procedure was performed, including verification of the laterality of the breast for biopsy. The patient was then placed in a prone position on the MRI table. Patient was imaged in the dedicated breast coil with a compression side plate and localization grid in place. Fiducial marker was placed in the appropriate region of the grid for localization. Multiplanar multisequence MR imaging of both breasts before and following the administration of intravenous gadolinium contrast was performed. Dynamic phase imaging was performed. The exam was processed and interpreted on the MRI [employer] workstation for biopsy purposes. MRI FINDINGS: Contrasted MRI demonstrates a 0.8 cm enhancing mass in the central subareolar breast, 4.2 cm from the nipple. This is best seen at table position 1.32. Utilizing the [employer] workstation, the appropriate location on the sideplate grid was calculated and identified. The overlying skin was cleaned with ChloraPrep and and draped in the usual sterile fashion. Local anesthesia was given with 5 cc of 1% Lidocaine buffered with Sodium Bicarbonate ??within the skin and deeper anesthesia with 20 cc of 1% Lidocaine with Epinephrine, buffered withSodium Bicarbonate. Through the compression grid guidance device, a trocar introducer was inserted to the calculated depth. An MR visible blunt tipped trocar was inserted through the introducer. Axial acquisition and sagittal reconstruction MRI was obtained to confirm location of the trocar within the targeted lesion. Subsequently, the trocar was removed and the 9-gauge vacuum assisted core biopsy device was inserted to the appropriate depth. ??Multiple samples were obtained through the area of concern. A post biopsy axial T1 weighted series demonstrated a biopsy cavity within the area of the enhancement and no significant hematoma. Through the introducer, a arslan marker clip was placed within the biopsy cavity. The tissue samples were placed in formalin and delivered to the pathology department by the technologist. Hemostasis was achieved, and the small wound was closed with Exofin. The patient was then accompanied by our nurse to the breast imaging department for her postprocedure mammogram. Estimated blood loss: Minimal Postbiopsy mammogram for clip placement: A two-view left digital mammogram with craniocaudal and true lateral projections was obtained to check clip placement. Breast Composition: Category C: Heterogeneously dense, which may obscure small masses. The clip is in good position at the biopsy site. Assessment: ??POST-PROCEDURE MAMMOGRAM FOR MARKER PLACEMENT. An ice pack was applied over the dressing on the breast. The patient tolerated the procedures well, with no immediate post biopsy complications. The patient was given verbal, as well as written post-procedure instructions (including Exofin instructions) and was released from the department in good condition. The attending physician, Zina Ely MD, was present for and performed the entire procedure. Procedure Note Zina Ely MD - 02/11/2021 EXAM: MRI GUIDED VACUUM-ASSISTED CORE NEEDLE BIOPSY AND POST BIOPSY DIGITAL MAMMOGRAM LEFT BREAST (COMBINED REPORT) HISTORY: This is a 30-year-old female with history of bloody nipple discharge. Outside MRI scan of the breast dated 12/08/2020 from [facility] demonstrated a 0.8 cm enhancing mass in the central left breast. There was no ultrasound correlate and mammogram was unremarkable. Breast MRI biopsy requested for further evaluation. COMPARISON: Prior breast MRI scan from [facility] 12/25/2020. CONTRAST: 6 cc of Gadovist. TECHNIQUE AND FINDINGS: Preprocedure images were reviewed. The procedure and its risks and benefits were discussed with the patient, including,but not limited to, bleeding, infection, allergy, and a nondiagnostic specimen. Written and verbal informed consent was obtained anddocumented. After confirming the correct breast for biopsy, this breast was marked with a marking pen. Prior to the procedure a hospital timeoutprocedure was performed, including verification of the laterality of the breastfor biopsy. The patient was then placed in a prone position on the MRI table.Patient was imaged in the dedicated breast coil with a compression side plateand localization grid in place. Fiducial marker was placed in theappropriate region of the grid for localization. Multiplanar multisequence MR imaging of both breasts before andfollowing the administration of intravenous gadolinium contrast was performed. Dynamic phase imaging was performed. The exam was processed and interpreted on the MRI [employer] workstation for biopsy purposes. MRI FINDINGS: Contrasted MRI demonstrates a 0.8 cm enhancing mass in the central subareolar breast, 4.2 cm from the nipple. This is best seen at table position 1.32. Utilizing the DynaCAD workstation, the appropriate location on the sideplate grid was calculated and identified. The overlying skin was cleaned with ChloraPrep and and draped in theusual sterile fashion. Local anesthesia was given with 5 cc of 1% Lidocaine buffered with Sodium Bicarbonate within the skin and deeper anesthesia with 20 cc of 1% Lidocaine with Epinephrine, buffered withSodium Bicarbonate. Through the compression grid guidance device, a trocar introducer was inserted to the calculated depth. An MR visible blunt tipped trocar was inserted through the introducer. Axial acquisition and sagittal reconstruction MRI was obtained toconfirm location of the trocar within the targeted lesion. Subsequently, the trocar was removed and the 9-gauge vacuum assisted core biopsy devicewas inserted to the appropriate depth. Multiple samples were obtainedthrough the area of concern. A post biopsy axial T1 weighted series demonstrateda biopsy cavity within the area of the enhancement and no significant hematoma. Through the introducer, a arslan marker clip was placed within the biopsy cavity. The tissue samples were placed in formalin and delivered to thepathology department by the technologist. Hemostasis was achieved, and the small wound was closed with Exofin. The patient was then accompanied by our nurse to the breast imagingdepartment for her postprocedure mammogram. Estimated blood loss: Minimal Postbiopsy mammogram for clip placement: A two-view left digitalmammogram with craniocaudal and true lateral projections was obtained to checkclip placement. Breast Composition: Category C: Heterogeneously dense, which may obscure small masses. The clip is in good position at the biopsy site. Assessment: POST-PROCEDURE MAMMOGRAM FOR MARKER PLACEMENT. An ice pack was applied over the dressing on the breast. The patient tolerated the procedures well, with no immediate post biopsy complications. The patient was given verbal, as well as written post-procedure instructions (including Exofin instructions) and was released from the department in good condition. The attending physician, Zina Ely MD, was present for and performed the entire procedure. IMPRESSION: 1. Technically successful, uncomplicated MRI guided vacuum assisted needle biopsy performed of a 0.8 cm mass in the 12 o'clock position, 4cm from the nipple, of the left breast. 2. Arslan-shaped tissue marker clip placed at the biopsy site. 3. Pathology results are pending. We will notify the patients of the pathology findings and recommendations. An addendum will be rendered to this report when the pathology results are made available. This report was electronically signed by ZINA ELY M.D. on 02/11/2021 4:04 PM . Wilner Gutierrez DO MAMMO ORDERABLES * MRI BREAST LEFT BIOPSY (02/11/2021 2:51 PM GEOTHERMAL FIELD TECHNICIAN) Anatomical Region Laterality Modality Breast Left Magnetic Resonan ce 02/11/2021 3:01 PM GEOTHERMAL FIELD TECHNICIAN Addenda Addendum by Zina Ely MD on 02/15/2021 3:50 PM GEOTHERMAL FIELD TECHNICIAN ORIGINAL REPORT EXAM: MRI GUIDED VACUUM-ASSISTED CORE NEEDLE BIOPSY AND POST BIOPSY DIGITAL MAMMOGRAM ??LEFT BREAST (COMBINED REPORT) HISTORY: This is a 30-year-old female with history of bloody nipple discharge. Outside MRI scan of the breast dated 12/08/2020 from [facility] demonstrated a 0.8 cm enhancing mass in the central left breast. There was no ultrasound correlate and mammogram was unremarkable. Breast MRI biopsy requested for further evaluation. COMPARISON: Prior breast MRI scan from [facility] 12/25/2020. CONTRAST: 6 cc of Gadovist. TECHNIQUE AND FINDINGS: Preprocedure images were reviewed. The procedure and its risks and benefits were discussed with the patient, including, but not limited to, bleeding, infection, allergy, and a nondiagnostic specimen. Written and verbal informed consent was obtained and documented. After confirming the correct breast for biopsy, this breast was marked with a marking pen. ??Prior to the procedure a hospital ??timeout procedure was performed, including verification of the laterality of the breast for biopsy. The patient was then placed in a prone position on the MRI table. Patient was imaged in the dedicated breast coil with a compression side plate and localization grid in place. Fiducial marker was placed in the appropriate region of the grid for localization. Multiplanar multisequence MR imaging of both breasts before and following the administration of intravenous gadolinium contrast was performed. Dynamic phase imaging was performed. The exam was processed and interpreted on the MRI [employer] workstation for biopsy purposes. MRI FINDINGS: Contrasted MRI demonstrates a 0.8 cm enhancing mass in the central subareolar breast, 4.2 cm from the nipple. This is best seen at table position 1.32. Utilizing the DynaCAD workstation, the appropriate location on the sideplate grid was calculated and identified. The overlying skin was cleaned with ChloraPrep and and draped in the usual sterile fashion. Local anesthesia was given with 5 cc of 1% Lidocaine buffered with Sodium Bicarbonate ??within the skin and deeper anesthesia with 20 cc of 1% Lidocaine with Epinephrine, buffered withSodium Bicarbonate. Through the compression grid guidance device, a trocar introducer was inserted to the calculated depth. An MR visible blunt tipped trocar was inserted through the introducer. Axial acquisition and sagittal reconstruction MRI was obtained to confirm location of the trocar within the targeted lesion. Subsequently, the trocar was removed and the 9-gauge vacuum assisted core biopsy device was inserted to the appropriate depth. ??Multiple samples were obtained through the area of concern. A post biopsy axial T1 weighted series demonstrated a biopsy cavity within the area of the enhancement and no significant hematoma. Through the introducer, a arslan marker clip was placed within the biopsy cavity. The tissue samples were placed in formalin and delivered to the pathology department by the technologist. Hemostasis was achieved, and the small wound was closed with Exofin. The patient was then accompanied by our nurse to the breast imaging department for her postprocedure mammogram. Estimated blood loss: Minimal Postbiopsy mammogram for clip placement: A two-view left digital mammogram with craniocaudal and true lateral projections was obtained to check clip placement. Breast Composition: Category C: Heterogeneously dense, which may obscure small masses. The clip is in good position at the biopsy site. Assessment: ??POST-PROCEDURE MAMMOGRAM FOR MARKER PLACEMENT. An ice pack was applied over the dressing on the breast. The patient tolerated the procedures well, with no immediate post biopsy complications. The patient was given verbal, as well as written post-procedure instructions (including Exofin instructions) and was released from the department in good condition. The attending physician, Zina Ely MD, was present for and performed the entire procedure. IMPRESSION: 1. ??Technically successful, uncomplicated MRI guided vacuum assisted needle biopsy performed of a 0.8 cm mass in the 12 o'clock position, 4 cm from the nipple, of the left breast. 2. ??Arslan-shaped tissue marker clip placed at the biopsy site. 3. ??Pathology results are pending. We will notify the patients of the pathology findings and recommendations. An addendum will be rendered to this report when the pathology results are made available. This report was electronically signed by ZINA ELY M.D. ??on 02/11/2021 4:04 PM . ADDENDUM #1 ADDENDUM: PATHOLOGY RESULTS Pathology report per Dr. 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 There is no atypia or malignancy. This is a benign lesion The pathology report is concordant with the imaging findings. If patient has persistent bloody nipple discharge, then breast surgical consultation is recommended. Otherwise, pending no interval breast concerns, screening mammography recommended at age 42. Ramona Varela RN will notify the patient of the biopsy findings and recommendations on 02/15/2021. Results were also provided to the referring physician via [employer]. This report was electronically signed by ZINA ELY M.D. ??on 02/15/2021 3:47 PM . Impressions 02/11/2021 4:04 PM GEOTHERMAL FIELD TECHNICIAN IMPRESSION: 1. ??Technically successful, uncomplicated MRI guided vacuum assisted needle biopsy performed of a 0.8 cm mass in the 12 o'clock position, 4 cm from the nipple, of the left breast. 2. ??Arslan-shaped tissue marker clip placed at the biopsy site. 3. ??Pathology results are pending. We will notify the patients of the pathology findings and recommendations. An addendum will be rendered to this report when the pathology results are made available. This report was electronically signed by ZINA ELY M.D. ??on 02/11/2021 4:04 PM . Narrative 02/11/2021 4:04 PM GEOTHERMAL FIELD TECHNICIAN EXAM: MRI GUIDED VACUUM-ASSISTED CORE NEEDLE BIOPSY AND POST BIOPSY DIGITAL MAMMOGRAM ??LEFT BREAST (COMBINED REPORT) HISTORY: This is a 30-year-old female with history of bloody nipple discharge. Outside MRI scan of the breast dated 12/08/2020 from [facility] demonstrated a 0.8 cm enhancing mass in the central left breast. There was no ultrasound correlate and mammogram was unremarkable. Breast MRI biopsy requested for further evaluation. COMPARISON: Prior breast MRI scan from [facility] 12/25/2020. CONTRAST: 6 cc of Gadovist. TECHNIQUE AND FINDINGS: Preprocedure images were reviewed. The procedure and its risks and benefits were discussed with the patient, including, but not limited to, bleeding, infection, allergy, and a nondiagnostic specimen. Written and verbal informed consent was obtained and documented. After confirming the correct breast for biopsy, this breast was marked with a marking pen. ??Prior to the procedure a hospital ??timeout procedure was performed, including verification of the laterality of the breast for biopsy. The patient was then placed in a prone position on the MRI table. Patient was imaged in the dedicated breast coil with a compression side plate and localization grid in place. Fiducial marker was placed in the appropriate region of the grid for localization. Multiplanar multisequence MR imaging of both breasts before and following the administration of intravenous gadolinium contrast was performed. Dynamic phase imaging was performed. The exam was processed and interpreted on the MRI Dynacad workstation for biopsy purposes. MRI FINDINGS: Contrasted MRI demonstrates a 0.8 cm enhancing mass in the central subareolar breast, 4.2 cm from the nipple. This is best seen at table position 1.32. Utilizing the DynaCAD workstation, the appropriate location on the sideplate grid was calculated and identified. The overlying skin was cleaned with ChloraPrep and and draped in the usual sterile fashion. Local anesthesia was given with 5 cc of 1% Lidocaine buffered with Sodium Bicarbonate ??within the skin and deeper anesthesia with 20 cc of 1% Lidocaine with Epinephrine, buffered withSodium Bicarbonate. Through the compression grid guidance device, a trocar introducer was inserted to the calculated depth. An MR visible blunt tipped trocar was inserted through the introducer. Axial acquisition and sagittal reconstruction MRI was obtained to confirm location of the trocar within the targeted lesion. Subsequently, the trocar was removed and the 9-gauge vacuum assisted core biopsy device was inserted to the appropriate depth. ??Multiple samples were obtained through the area of concern. A post biopsy axial T1 weighted series demonstrated a biopsy cavity within the area of the enhancement and no significant hematoma. Through the introducer, a arslan marker clip was placed within the biopsy cavity. The tissue samples were placed in formalin and delivered to the pathology department by the technologist. Hemostasis was achieved, and the small wound was closed with Exofin. The patient was then accompanied by our nurse to the breast imaging department for her postprocedure mammogram. Estimated blood loss: Minimal Postbiopsy mammogram for clip placement: A two-view left digital mammogram with craniocaudal and true lateral projections was obtained to check clip placement. Breast Composition: Category C: Heterogeneously dense, which may obscure small masses. The clip is in good position at the biopsy site. Assessment: ??POST-PROCEDURE MAMMOGRAM FOR MARKER PLACEMENT. An ice pack was applied over the dressing on the breast. The patient tolerated the procedures well, with no immediate post biopsy complications. The patient was given verbal, as well as written post-procedure instructions (including Exofin instructions) and was released from the department in good condition. The attending physician, Zina Ely MD, was present for and performed the entire procedure. Wilner Gutierrez DO MR ORDERABLES * PATHOLOGY TISSUE (02/11/2021 2:10 PM GEOTHERMAL FIELD TECHNICIAN) Case Report Surgical Pathology Report ? Case: [id number] ? Authorizing Provider: ??Wilner Gutierrez, DO ? Collected: ? 02/11/2021 02:10 PM ? Ordering Location: ? [facility] Received: ?02/14/2021 08:09 AM ? CENTER ? Pathologist: ? Cris Medina MD ? Specimen: ?Breast, Left, 0.8 cm mass in left central breast-history of bloody nipple discharge ?? 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 A few cores contain a localized lesion with myxoid stroma and benign epithelial elements diagnostic of fibroadenoma. 02/15/2021 2:32 PM [facility] Clinical History 30-year-old female with history of bloody nipple discharge. Outside MRI scan dated 12/08/2020 [facility] demonstrated a 0.8 cm enhancing mass in the central left breast. There was no ultrasound correlate and mammogram was unremarkable. Breast MRI biopsy performed. 02/15/2021 2:32 PM [facility] Gross Description The requisition and specimen(s) are identified with the patient's name Roxana Briseno. Received in formalin, specimen A , is a 5.0 x 2.0 x 0.3 cm aggregate of yellow-wood fibroadipose tissue, entirely submitted in cassette [id number]. DF Specimen processing times on 02/11/2021 are as follows: Time of excision 02/11/2021 at 1410 Time specimen is placed in formalin: 02/11/2021 at 1416 Out of formalin time: 02/14/2021 at 1110 Total formalin fixation time: 69 hrs, 14 minutes Total cold ischemia time: 6 minutes 02/15/2021 2:32 PM [facility] Disclaimer The performance characteristics of all immunohistochemical and indirect immunofluorescence stains (if any) cited in this report were determined by the [facility] Laboratory of [facility]. Some of these tests were developed by our own laboratory and have not been cleared or approved by the US Food and Drug Administration. The FDA does not require this test to go through premarket FDA review. These tests are used for clinical purposes. They should not be regarded as investigational or for research. This laboratory is certified under the Clinical Laboratory Improvement Amendments (CLIA) as qualified to perform high complexity clinical laboratory testing. This case has been personally reviewed and interpreted by the attending (teaching) pathologist. 02/15/2021 2:32 PM [facility] Embedded Images 02/15/2021 2:32 PM [facility] Pathology/Cytolo gy (Breast, Left) 02/11/2021 2:10 PM GEOTHERMAL FIELD TECHNICIAN 02/14/2021 8:09 AM GEOTHERMAL FIELD TECHNICIAN Wilner James Brenda [facility] LAB - PATHOLOGY/CYT OLOGY ORDERABLES Performing Organization Address City/[facility]/ZIP Co de Phone Number [facility] [address] [place] [address], [facility] [phone] * CREATININE - POCT INTERFACED (02/11/2021 1:21 PM GEOTHERMAL FIELD TECHNICIAN) Creatinine POCT 0.87 0.30 - 1.30 mg/dL 02/11/2021 1:23 PM GEOTHERMAL FIELD TECHNICIAN [facility] eGFR >60 >60 mL/min/1.7 3 m2 02/11/2021 1:23 PM GEOTHERMAL FIELD TECHNICIAN [facility] Blood BLOOD SPECIMEN / Unknown 02/11/2021 1:21 PM GEOTHERMAL FIELD TECHNICIAN 02/11/2021 1:23 PM GEOTHERMAL FIELD TECHNICIAN Wilner Gutierrez DO LAB - POINT OF CARE ORDERABLES Performing Organization Address [facility]/ZIP Co de Phone Number [facility] [address] [place] [address], [facility] [phone] Care Teams Sample Driller Relationship Specialty Start Date End Date Kit Arriola MD [id number] [id number] PCP - General Emergency Medicine 10/12/21
--- OUTSIDE RECORDS SUMMARY | 2024-02-17 13:39 | XMS_ITS | Encounter Summary ---
Author Organization [facility] Address Formerly [facility], [facility] [place] [address] [place] [address] Care Team Providers Care Gmat Tutor Name Role Phone Kit Arriola MD Primary Care Provider [phone] Reason for Visit * Auth/Cert Specialty Diagnoses / Procedures Referred By Kimberley barrios Referred To Contact Diagnoses ECTOPIC Procedures LAPAROSCOPIC RIGHT SALPINGOSTOMY, POSSIBLE RIGHT SALPINGECTOMY Referral ID Status Reason Start Date Expiration Date Visits Re quested Visits Authorized [id number] 1 Encounter Details Date Type Department Care Team (Late st Contact Info) Description 11/29/2017 12:30 PM CDT - 11/29/2017 2:59 PM CDT Surgery [facility] [place] [address] Dorothy Antonio MD [address] [place] [address] LAPAROSCOPIC RIGHT SALPINGOSTOMY Surgery Details Date/Time Status Location OR Service Patient Class Case Class Case Type Trauma Case? 11/29/2017 12:30 PM Posted ANKIT OR OR 1 Gynecology Short Stay/Outpat ient Surgery E - Elective No Panel 1 Procedure LRB Anes Op Region Wound Class Comments LAPAROSCOPIC RIGHT SALPINGOSTOMY Right General Abdomen Clean Surgeon Surgeon Role Service Panel Dorothy Antonio MD Primary Gynecology 1 Case Notes SCHED WITH KAREN ON 11/28/17 [facility] Special Needs LATEX ALLERGY documented in this encounter Social History Tobacco Use Types Packs/Day Years Used Date Smoking Tobacco: Never Smokeless Tobacco: Never Alcohol Use Standard Drinks/Week Comments No 0 (1 standard drink = 0.6 oz pur e alcohol) rare use Comments No Sex and Gender Information Value Date Recorded Sex Assigned at Not on file Legal Sex Female 8:13 PM CDT Gender Identity Not on file Sexual Orientation Not on file documented as of this encounter Last Filed Vital Signs Vital Sign Reading Time Taken Comments Blood Pressure 110/81 11/29/2017 2:45 PM CDT Pulse 105 11/29/2017 2:45 PM CDT Temperature 36.4 ??C (97.6 ??F) 11/29/2017 1:55 PM CD T Respiratory Rate 19 11/29/2017 2:45 PM CDT Oxygen Saturation 96% 11/29/2017 2: 45 PM CDT Inhaled Oxygen Concentration - - Weight 79.3 kg (174 lb 13.2 oz) 018 11:30 AM CDT Height 165.1 cm (5' 5 ) 11/29/2017 11:3 0 AM CDT Body Mass Index 29.09 11/29/2017 11:30 AM CDT documented in this encounter Discharge Instructions * Discharge Instructions* Drea Mcnamara RN - 11/29/2017 3:49 PM CDT Below are some guidelines to help you address questions or concerns about caring for yourself. 1) Do not drive for the first 24 hours or if you are taking narcotic pain medications. 2) No intercourse or tampons for 2 weeks. Never douche. 3) Do not submerge in water: No baths, hot tubs or swimming for 2 weeks. Showering is ok. 4) Stair climbing is ok if you are not experiencing lightheadedness. DO NOT carry anything while stair climbing. 6) If you experience any of the following, contact your healthcare provider right away: Bleeding greater than one pad per hour for 2-3 hours. Foul odor coming from your vagina. Fever 100.4 degrees or higher. Unrelieved incisional or abdominal pain. Swelling, redness, discharge or bleeding from your incision. Your incision begins to separate. Painful urination No bowel movement within 4 days of surgery. Pain, increased or unequal warmth, tenderness or swelling in your legs,especially the calf area. Frequent nausea and vomiting. Chest pain or problems breathing, call 911. Follow up: 1 week with your surgeon If you have questions or concerns please contact your provider or the hospital. Dermabond: Skin adhesive is medical glue used to close wounds. It is a substitute for orlin and stitches. You have less pain and lower risk of infection than with orlin or stitches. Skin adhesive will falloff the wound when healed. Self care: -Keep your wound clean and dry as directed by your physician. You can shower with soap and water after 24 hours. Lightly pat your wound dry after you shower. -Do not soak your wound in water, such as in a bath, swimming or hot tub -Do not scrub your wound or pick at the adhesive. Let glue fall off without picking at wound. This can make your wound reopen. -Do not apply ointments to your wound. These include antibiotic and other ointments that contain petroleum jelly. These products will remove skin adhesive and reopen the wound Because you had anesthesia: -Do not drink alcohol, drive, operate machinery, or make any major legal decisions/ sign any binding contracts for 24 hrs/ or while taking narcotic pain medication -Take pain medicine with food -Use stool softener while taking narcotics -Advance diet as tolerated. Avoid greasy, spicy, or fried foods today. -Must have a responsible adult stay with you for the rest of today and tonight If you have chest pain, shortness of breath, excessive bleeding or drainage, if you cannot hold down anything to eat or drink, or if you cannot urinate, please call 911 or go to the nearest emergencyroom. If you have fever, pain not controlled by your medication, signs of infection such as redness or discharge or swelling at the site, or any other questions or concerns, please call your surgeon. * Attachments The following attachments cannot be sent through Care Everywhere. * ECTOPIC DISCHARGE INSTRUCTIONS (PORTUGUESE) documented in this encounter Medications at Time of Discharge hydrocodone-aceta minophen 5-325 MG tablet Take 1 tablet by mouth every 4 (four) hours as needed for Pain. 20 tablet 11/29/2017 03/10/2018 metFORMIN 500 MG tabletIndications :for PCOS Take 500 mg by mouth nightly. 03/10/2018 zolpidem 10 MG tablet Take 10 mg by mouth nightly as needed for Sleep. 03/10/2018 documented as of this encounter H&P Notes * Dorothy Antonio MD - 11/29/2017 9:58 AM CDT Gynecology History and Physical CC: Ectopic HPI: Patient is a 27-year-old female presenting with ectopic . She has been followed in the clinic and was treated with MTX on 11/15. She has had appropriate and steady decline in her HCG levels.She continues to c/o RLQ pain and is requesting surgical management. While she understands she seems to be responding appropriately to medical therapy she is very concerned about the ongoing risk of tubal rupture and requests definitive management with surgery. LINE PILOT History: OB History No data available Menstrual Hx: History of PCOS Contraception: none STD: Negative Abnormal pap: no. Past Medical History: Diagnosis Date ??? Ectopic ??? Kidney stones ??? PCOS (polycystic ovarian syndrome) on Metformin Past Surgical History: Procedure Laterality Date ??? CHOLECYSTECTOMY Social History Tobacco Use ??? Smoking status: Never Smoker ??? Smokeless tobacco: Never Used Substance Use Topics ??? Alcohol use: No Comment: rare use Family History Problem Relation Age of Onset ??? Stroke Father No medications prior to admission. Allergies Allergen Reactions ??? Latex Hives ??? Morphine Hives and Itching Review of systems: Review of Systems Constitutional: Negative for chills and fever. Respiratory: Negative for shortness of breath. Cardiovascular: Negative for chest pain. Gastrointestinal: Positive for abdominal pain and nausea. Neurological: Positive for dizziness. Physical Exam: Filed Vitals: 11/28/17 1614 Weight: 78.5 kg (173 lb) Height: 5' 5 (1.651 m) Physical Exam Gen: NAD Abd: Mildly TTP over RLQ, no r/g Labs: Recent Labs Lab 11/29/17 1022 WBC 6.3 RBC 4.27 HGB 12.5 HCT 37.9* MCV 88.8 MCH 29.3 MCHC 33.0 PLT 343 RDW 13.1 MPV 9.7 PERNEU 52.2 PERLYM 36.2 PERMON 8.7 LYMC 2.28 MONOC 0.55 EOSC 0.13 BASOC 0.03 DTYPE AUTOMATED DIFFERENTIAL HCG 44 Imaging: Multiple pelvic u/s showing <2cm right adnexal mass c/w ectopic Assessment: 27 yo with known ectopic suspected in R tube. She has been treated with MTX and responding appropriately to medical management. However, she continues to have RLQ pain and is very concerning about ongoing rupture risk as ectopic continues to resolve and strongly desires to undergo surgical management at this time. She is aware that she may lose her fallopian tube, but requests salpingostomy. She understands that given the length of time after MTX and low HCG (44 today) I may not be able to identify the ectopic to remove it and we may only do a Dx LSC. I again counseled Jonathon think continued medical management is very reasonable at this time, but she does not desires to continue and wants surgical management Plan: To OR for LSC salpingostomy, possible salpingectomy, possible only diagnostic LSCV R/B/A of surgery have been discussed with patient in detail, she still continues to proceed even inlight of her most recent HCG Levels )DOROTHY ANTONIO MD documented in this encounter OR Notes * Op Note - Dorothy Antonio MD - 11/29/2017 4:22 PM CDT LAPAROSCOPIC RIGHT SALPINGOSTOMY Mukund Gaona 11/29/2017Surgeon(s): Dorothy Antonio MD Anesthesiologist: Benjamin Yanes MD PLANT OPERATIONS COORDINATOR: Napoleon Nielsen CRNA Staff: Technical Project Coordinator: DAVID Tristan Circulating Nurse 1: Perla Dexter RN Circulating Nurse 2: Ruiz Stephens RN Scrub Person 1: Ina Kolb, DRIVER COURIER Pre-Op Diagnosis: ECTOPIC Post-Op Diagnosis: Same Procedure(s): LAPAROSCOPIC RIGHT SALPINGOSTOMY Anesthesia: General Findings: Normal appearing ext gent, vagina, cervix. The uterus was normal. The ovaries were normal. Mildly dilated infundibulum of right fallopian tube c/w ectopic , no evidence of tubal rupture or active bleeding. Small amount of dark red hemoperitoneum. Complications: none Estimated Blood Loss: 5 cc Specimens: ID Type Source Tests Collected by Time Destination A : Ectopic TISSUE OTHER (type in comments) PATHOLOGY Dorothy Antonio MD 11/29/2017 9826 Condition: stable on move to Post anesthesia care unit. Procedure: After consents were obtained and all questions were answered the patient was taken to the operatingroom with an IV running. General anesthesia was obtained without difficulty. The patient was prepared and draped in a normal sterile fashion. A sterile urinary catheter was used to drain the bladder.Urine was noted to be clear. A vaginal speculum was placed. A Chatterfly uterine manipulator was placed. Attention was turned to the abdomen. 0.5% marcaine w/ epi was injected in the infraumbilical fold and a 5 mm skin incision was made. The 5 mm trocar was advanced under visual guidance with the camera. Intraabdominal placement was confirmed and insufflation applied. The patient was placed in trendelenburg positioning. Findings are as noted above. 2 additional 5 mm trocar ports were inserted under direct visual guidance after injection of 0.5% Marcaine with epinephrine, 1 in the left lower quadrant and 1 in the right lower quadrant. The infundibulum of the right tube was noted to be mildly dilated consistent with the known ectopicpregnancy. Using the needle point monopolar cautery a longitudinal incision was made along this portion of the tube. With the tube open, there was very little ectopic tissue noted. The tube was noted to be mostly edematous. The small tissue that was present was grasped with a [place] grasper and removed and sent to pathology. Excellent hemostasis of the tube was noted. The pelvis was then irrigated. Small amount of tissue was noted in the posterior cul-de-sac consistent with a likely aborted ectopic tissue and this was collected and sent to pathology as well. After excellent hemostasis was assured and all CO2 gas was removed from the abdominal cavity. The trocars were removed. The skin incisions were closed with 4.0 vicryl in a subcuticular fashion. Dermabond glue was placed on the incisions. The uterine manipulator was removed. Excellent hemostasis of the tenaculum sites was noted. The patient was awakened from general anesthesia without difficulty and taken to the recovery room in stable condition. All sponge, lap and needle counts were correct following the procedure. * OR PreOp - Peg Mcdaniels NP - 11/28/2017 4:54 PM CDT Chart reviewed, per phone interview patient denies SOB/CP. Patient denies recent changes in exercise tolerance. * OR PreOp - Hansa López RN - 11/28/2017 4:11 PM CDT Can you climb 2 flights of stairs without CP or extreme SOB? yes Are you physically able to do the same things today that you could 6 months ago? yes Any recent heart testing? (EKG, stress test, Echo?) no Do you see a emu farm worker? Who is it? no documented in this encounter Plan of Treatment Not on file documented as of this encounter Procedures Procedure Name Priority Date/Time Associated Diagnosis Comments LAPAROSCOPY 11/29/2017 12:40 PM CDT ECTOPIC Case Notes SCHED WITH KAREN ON 11/28/17 [facility] Special Needs LATEX ALLERGY TYPE & SCREEN Routine 11/29/2017 10:22 AM CDT Ectopic (HHS/HCC) HCG QUANT (SERUM)-CHORIONIC GONADOTROPIN Routine 11/29/2017 10:22 AM CDT Ectopic (HHS/HCC) CBC W/DIFF AUTOMATED STAT 11/29/2017 10:22 AM CDT Ectopic (HHS/HCC) PATHOLOGY Routine 11/29/2017 12:00 AM CDT documented in this encounter Results * BHCG QUANT (SERUM)-CHORIONIC GONADOTROPIN (11/29/2017 10:22 AM CDT) HCG QUANTITATIVE 44 MIU/ML 11/30/19 18 11:12 AM CDT [facility] Comment: WEEKS OF ? REFERENCE RANGES Non- female ?< or = 2 ? 0.2 - 1 ? 5 - 50 ? 1 - 2 ? 50 - 500 ? 2 - 3 ? 100 - 5000 ? 3 - 4 ? 500 - 10,000 ? 4 - 5 ? 1000 - 50,000 ? 5 - 6 ? 10,000 - 100,000 ? 6 - 8 ? 15,000 - 200,000 ? 2 - 3 MONTHS ?10,000 - 100,000 11/29/2017 10:2 2 AM CDT us Dorothy Antonio MD LABORATORY Final Result [facility] [address] [place] [address], * TYPE & SCREEN (11/29/2017 10:22 AM CDT) ABO/RH A POSITIVE 11/29/2017 12:11 PM CDT [facility] ANTIBODY SCREEN NEGATIVE 8 12:11 PM CDT [facility] SAMPLE EXPIRATION 12/02/2017 11/29/2017 12:11 PM CDT [facility] 11/29/2017 10:2 2 AM CDT us Dorothy Antonio MD BLOOD BANK TEST ORDERABLES Miryam cárdenas Result [facility] [address] [place] [address], * (ABNORMAL) CBC W/DIFF AUTOMATED (11/29/2017 10:22 AM CDT) [facility] Signature WBC 6.3 4.5 - 11.0 x10'3/uL 11/29/2017 10:55 AM CDT [facility] RBC 4.27 4.20 - 5.40 x10'6/uL 11/29/2017 10:55 AM CDT [facility] HGB 12.5 12.0 - 16.0 G/DL 11/29/2017 10:55 AM CDT [facility] HCT 37.9(L) 38.0 - 48.0 % 11/29/2017 10:55 AM CDT [facility] MCV 88.8 80.0 - 94.0 FL 11/29/2017 10:55 AM CDT [facility] MCH 29.3 27.0 - 31.0 PG 11/29/2017 10:55 AM CDT [facility] MCHC 33.0 32.0 - 36.0 G/DL 11/29/2017 10:55 AM CDT [facility] RDW 13.1 11.5 - 14.5 % 11/29/2017 10:55 AM CDT [facility] PLT 343 130 - 400 x10'3/uL 11/29/2017 10:55 AM CDT [facility] MPV 9.7 9.3 - 12.2 FL 11/29/2017 10:55 AM CDT [facility] DIFFERENTIAL TYPE AUTOMATED DIFFERENTIAL 11/29/2017 10:55 AM CDT [facility] NEUTROPHILS % 52.2 % 11/29/2017 10:55 AM CDT [facility] LYMPHOCYTES % 36.2 % 11/29/2017 10:55 AM CDT [facility] MONOCYTES % 8.7 % 11/29/2017 10:55 AM CDT [facility] EOSINOPHILS 2.1 % 11/29/2017 10:55 AM CDT [facility] BASOPHILS 0.5 % 11/29/2017 10:55 AM CDT [facility] IMMATURE GRANS % 0.3(H) 0 % 11/30/19 18 10:55 AM CDT [facility] ABS. NEUTROPHILS TOTAL 3.28 1.80 - 7.70 x10'3/uL 11/29/2017 10:55 AM CDT [facility] ABS. LYMPHOCYTES 2.28 1.00 - 4.80 x10'3/uL 11/29/2017 10:55 AM CDT [facility] ABS. MONOCYTES 0.55 0.24 - 0.86 x10'3/uL 11/29/2017 10:55 AM CDT [facility] ABS. EOSINOPHILS 0.13 0.04 - 0.36 x10'3/uL 11/29/2017 10:55 AM CDT [facility] ABS. BASOPHILS 0.03 0.01 - 0.08 x10'3/uL 11/29/2017 10:55 AM CDT [facility] ABS. IMMATURE GRANULOCYTES 0.02 0.00 - 0.03 x10'3/uL 11/29/2017 10:55 AM CDT [facility] 11/29/2017 10:2 2 AM CDT Dorothy Antonio MD LABORATORY Final Result [facility] [address] [facility] [place] [address], * Pathology (11/29/2017 12:00 AM CDT) COPATH REPORT ? [facility] ? Department of Pathology ? [address] ? [place] ??[id number] ? [id number] ? Pathology Report ? Name: MUKUND GAONA ?Specimen #: [id number] Age: 1 1990 (Age: 27) ? Location: [facility] Sex: F ? Procedure Date: 11/29/2017 Hospital #: [id number] ? Date Received: 11/29/2017 Date Reported: 11/30/2017 Provider: DOROTHY ANTONIO Gross Description: The specimen is received in a single formalin filled container labeled with the patient's name (Mukund Gaona), date and ectopic . ??It contains a 1.2 x 0.7 x 0.3 cm piece of wood-red tissue. ??There are also several additional fragments of wood tissue measuring less than 0.2 cm each. ??The tissue is entirely submitted in a single cassette. Microscopic Description: Microscopic examination substantiates the above diagnosis. FINAL PATHOLOGIC DIAGNOSIS: FALLOPIAN TUBE, ECTOPIC , EXCISION: ? IMMATURE CHORIONIC VILLI CONSISTENT WITH ECTOPIC ?? AIRAM LONG ??Pathologist lc/11/30/2017 Electronically Signed Out ? [facility] Tissue specimen (specimen) (OTHER (type in comments)) 11/29/2017 1:35 PM CDT Comment:Dr. Antonio us Dorothy Antonio MD PATHOLOGY/CYTOLOGY ORDERABLES F inal Result Performing Organization Address City/State/[facility] Co de Phone Number [facility] [address] [place] [address], documented in this encounter Visit Diagnoses Not on filedocumented in this encounter Administered Medications Inactive Administered Medications - up to 3 most recent administrations Medication Order MAR Action Action Date Dose Rate Site BUpivacaine-EPINEPHrine PF 0.5% -1:[id number] injection As needed, Starting on Amanda 11/29/17 at 1305, Until Amanda 11/29/17 at 1400, Intra-Op Given 11/29/2017 1:05 PM CDT 14 mLs Operative Site famotidine (PEPCID) tablet 20 mg 20 mg, Oral, Once, 1 dose, On Amanda 11/29/17 at 1245, On admission, Pre-Op Given 11/29/2017 12:31 PM CDT 20 mg fentaNYL (SUBLIMAZE) 100 MCG/2ML injection 1 dose, Starting on Amanda 11/29/17 at 1422, Until Amanda 11/29/17 at 1425, Created by cabinet override fentaNYL (SUBLIMAZE) injection 25 mcg 25 mcg, Intravenous, Every 5 min PRN, Severe pain (Scale 8 - 10), 5 doses, Starting on Amanda 11/29/17 at 1424, Until Amanda 11/29/17 at 1542, Maximum cumulative dose 250 mcg. Do not administer if patient is overly sedated, SpO2 less than 90%, or Respiratory Rate less than 12. If more than one IV analgesic is ordered per pain level, use in this order: fentaNYL, morphine, HYDROmorphone. If desired pain control is not reached, move to next ordered medication at next dosing interval., PACU Given 11/29/2017 2:50 PM CDT 25 mcg Given 11/29/2017 2:40 PM CDT 25 mcg Given 11/29/2017 2:34 PM CDT 25 mcg lactated ringers infusion at 10 mL/hr, Intravenous, Continuous, Starting on Amanda 11/29/17 at 1245, Until Amanda 11/29/17 at 1835, Infuse at TKO rate,Please do not start LR if patient has diagnosis of End stage renal disease, Pre-Op New Bag 11/29/2017 12:33 PM CDT 10 mL/hr meperidine (DEMEROL) injection 12.5 mg 12.5 mg, Intravenous, Once as needed, Other, Intractable shivering, 1 dose, Starting on Amanda 11/29/17 at 1424, Until Amanda 11/29/17 at 1434, Please call physician if this order is required, PACU Given 11/29/2017 2:34 PM CDT 12.5 mg ondansetron (ZOFRAN) injection 4 mg 4 mg, Intravenous, Once as needed, Nausea, Vomiting, 1 dose, Starting on Amanda 11/29/17 at 1424, Until Amanda 11/29/17 at 1433, Administer slowly over 3-4 minutes. If more than one antiemetic is ordered, use in this order: ondansetron, diphenhydramine, metoclopramide, haloperidol, promethazine. If nausea / vomiting still not controlled, move to next ordered medication., PACU Given 11/29/2017 2:33 PM CDT 4 mg ondansetron (ZOFRAN-ODT) disintegrating tablet 8 mg 8 mg, Oral, Once, 1 dose, On Amanda 11/29/17 at 1245, On admission, Pre-Op Given 11/29/2017 12:32 PM CDT 8 mg oxyCODONE-acetaminophen (PERCOCET) 5-325 MG tablet 1 tablet 1 tablet, Oral, Every 4 hours PRN, Severe pain (Scale 8 - 10), Starting on Amanda 11/29/17 at 1501, Until Amanda 11/29/17 at 1835, Maximum dose of acetaminophen is 4000 mg from all sources in 24 hours., Post-Op Given 11/29/2017 3:03 PM CDT 1 tablet documented in this encounter Active and Recently Administered Medications Times are shown in CDT. Scheduled Medication Order 11/27/2017 11/28/2017 11/29/2017 famotidine (PEPCID) tablet 20 mg (COMPLETED) 20 mg, Oral, Once, 1 dose, On Amanda 11/29/17 at 1245, On admission, Pre-Op 1231 (Given - Provid er: Perla Cruz RN) ondansetron (ZOFRAN-ODT) disintegrating tablet 8 mg (COMPLETED) 8 mg, Oral, Once, 1 dose, On Amanda 11/29/17 at 1245, On admission, Pre-Op 1232 (Given - Provid er: Perla Cruz RN) Continuous Medication Order 11/27/2017 11/28/2017 11/29/2017 lactated ringers infusion at 10 mL/hr, Intravenous, Continuous, Starting on Amanda 11/29/17 at 1245, Until Amanda 11/29/17 at 1835, Infuse at TKO rate,Please do not start LR if patient has diagnosis of End stage renal disease, Pre-Op 1233 (New Bag - Prov ider: Perla Cruz RN) PRN Medication Order 11/27/2017 11/28/2017 11/29/2017 BUpivacaine-EPINEPHrine PF 0.5% -[id number] injection (CANCELED) As needed, Starting on Amanda 1018 at 1305, Until Amanda 1018 at 1400, Intra-Op 1305 (Given - Provid er: Dorothy Antonio MD - Comment: To trocar sites) fentaNYL (SUBLIMAZE) injection 25 mcg (CANCELED) 25 mcg, Intravenous, Every 5 min PRN, Severe pain (Scale 8 - 10), 5 doses, Starting on Amanda 1018 at 1424, Until Amanda 18 at 1542, Maximum cumulative dose 250 mcg. Do not administer if patient is overly sedated, SpO2 less than 90%, or Respiratory Rate less than 12. If more than one IV analgesic is ordered per pain level, use in this order: fentaNYL, morphine, HYDROmorphone. If desired pain control is not reached, move to next ordered medication at next dosing interval., PACU 1425 (Given - Provid er: Zamzam Barbosa RN)1434 (Given - Provider: Zamzam Barbosa RN)1440 (Given - Provider: Zamzam Barbosa RN)1450 (Given - Provider: Zamzam Barbosa RN) hydrocodone-acetaminophen (NORCO) 5-325 MG tablet 1 tablet 1 tablet, Oral, Every 4 hours PRN, Moderate pain (Scale 4 - 7), Starting on Amanda 18 at 1501, Until Amanda 18 at 1835, Maximum dose of acetaminophen is 4000 mg from all sources in 24 hours., Post-Op meperidine (DEMEROL) injection 12.5 mg (COMPLETED) 12.5 mg, Intravenous, Once as needed, Other, Intractable shivering, 1 dose, Starting on Amanda 1018 at 1424, Until Amanda 1018 at 1434, Please call physician if this order is required, PACU 1434 (Given - Provid er: Zamzam Barbosa RN - Comment: for post op shivering) ondansetron (ZOFRAN) injection 4 mg (COMPLETED) 4 mg, Intravenous, Once as needed, Nausea, Vomiting, 1 dose, Starting on Amanda 10/18 at 1424, Until Amanda 18 at 1433, Administer slowly over 3-4 minutes. If more than one antiemetic is ordered, use in this order: ondansetron, diphenhydramine, metoclopramide, haloperidol, promethazine. If nausea / vomiting still not controlled, move to next ordered medication., PACU 1433 (Given - Provid er: Zamzam Barbosa, COCO) oxyCODONE-acetaminophen (PERCOCET) 5-325 MG tablet 1 tablet 1 tablet, Oral, Every 4 hours PRN, Severe pain (Scale 8 - 10), Starting on Amanda 11/29/17 at 1501, Until Amanda 11/29/17 at 1835, Maximum dose of acetaminophen is 4000 mg from all sources in 24 hours., Post-Op 1503 (Given - Provid er: Zamzam Barbosa RN - Comment: historical med) documented in this encounter Care Teams Gmat Tutor Relationship Specialty Start Date End Date Kit Arriola MD [id number] [address] PCP - General 12/01/15 07/13/20 documented as of this encounter
--- OUTSIDE RECORDS SUMMARY | 2024-02-17 13:39 | XMS_ITS | Encounter Summary ---
Author Organization [facility] Address [address] [place], [place] [address] [address] Care Team Providers Care Manager Labor Delivery Name Role Phone Unavailable Primary Care Provider Unavailabl e Reason for Referral * Radiology Services (Routine) - Closed Specialty Diagnoses / Procedures Referred By Kimbelrey barrios Referred To Contact Diagnoses Abnormal finding on breast imaging Procedures MAMMO LEFT POST CLIP OR WIRE Wilner Gutierrez DO [address] [place] [id number] Referral ID Status Reason Start Date Expiration Date Visits Re quested Visits Authorized [id number] Closed 02/11/2021 02/11/2022 1 1 N RESOURCES ASSOCIATE Reason for Visit * Radiology Services (Routine) - Closed Specialty Diagnoses / Procedures Referred By Kimberley barrios Referred To Contact Diagnoses Abnormal finding on breast imaging Procedures MAMMO LEFT POST CLIP OR WIRE Wilner Guiterrez DO [address] [place] [phone] Referral ID Status Reason Start Date Expiration Date Visits Re quested Visits Authorized [id number] Closed 02/11/2021 02/11/2022 1 1 Encounter Details Date Type Department Care Team (Latest Contact Info) Description 02/11/2021 11:39 AM HUMAN RESOURCES ASSOCIATE - 02/11/2021 1:04 PM HUMAN RESOURCES ASSOCIATE Hospital Encounter [facility] [address] [place] [address] Wilner Gutierrez DO [address] [place] [phone] Discharge Disposition: Home or Self Care Social History Tobacco Use Types Packs/Day Years Used Date Smoking Tobacco: Never Assessed Sex and Gender Information Value Date Recorded Sex Assigned at Female 08/14/2021 4:02 PM CDT Gender Identity Female 08/14/2021 4:02 PM CDT Sexual Orientation Not on file COVID-19 Exposure Response Date Recorded In the last month, have you been in contact with someone who was confirmed or suspected to have Coronavirus / COVID-19? No / Unsure 02/11/2021 12:21 PM HUMAN RESOURCES ASSOCIATE documented as of this encounter Plan of Treatment Not on file documented as of this encounter Procedures Procedure Name Priority Date/Time Associated Diagnosis Comments MAMMO LEFT POST CLIP OR WIRE Routine 02/11/2021 3:23 PM HUMAN RESOURCES ASSOCIATE Abnormal finding on breast imaging PATHOLOGY TISSUE Routine 02/11/2021 2:10 PM HUMAN RESOURCES ASSOCIATE Abnormal finding on breast imaging CREATININE - POCT INTERFACED Routine 02/11/2021 1:21 PM HUMAN RESOURCES ASSOCIATE documented in this encounter Results * MAMMO LEFT POST CLIP OR WIRE (02/11/2021 3:23 PM HUMAN RESOURCES ASSOCIATE) Anatomical Region Laterality Modality Breast Left Mammography 02/11/2021 3:01 PM HUMAN RESOURCES ASSOCIATE Addenda Addendum by Heron Ely MD on 02/15/2021 3:50 PM HUMAN RESOURCES ASSOCIATE ORIGINAL REPORT EXAM: MRI GUIDED VACUUM-ASSISTED CORE NEEDLE BIOPSY AND POST BIOPSY DIGITAL MAMMOGRAM ??LEFT BREAST (COMBINED REPORT) HISTORY: This is a 30-year-old female with history of bloody nipple discharge. Outside MRI [facility] of the breast [facility] demonstrated a 0.8 cm enhancing mass in the central left breast. There was no ultrasound correlate and mammogram was unremarkable. Breast MRI biopsy requested for further evaluation. COMPARISON: Prior breast MRI scan from [facility] 12/25/2020. CONTRAST: 6 cc of Gadovist. TECHNIQUE [...] department in good condition. The attending physician, Heron Ely MD, was present for and performed [...] available. This report was electronically signed by HERON ELY M.D. ??on 02/11/2021 4:04 PM . [...] also provided to the referring physician via [employer]. This report was electronically signed by HERON ELY M.D. ??on 02/15/2021 3:47 PM . Impressions 02/11/2021 4:04 PM HUMAN RESOURCES ASSOCIATE IMPRESSION: 1. ??Technically successful, uncomplicated MRI guided [...] available. This report was electronically signed by HERON ELY M.D. ??on 02/11/2021 4:04 PM . Narrative 02/11/2021 4:04 PM HUMAN RESOURCES ASSOCIATE EXAM: MRI GUIDED VACUUM-ASSISTED CORE NEEDLE BIOPSY AND POST BIOPSY DIGITAL MAMMOGRAM ??LEFT BREAST (COMBINED REPORT) HISTORY: This is a 30-year-old female with history of bloody nipple discharge. Outside MRI scan of the breast dated 12/08/[facility] demonstrated a 0.8 cm enhancing mass in the central left breast. There was no ultrasound correlate and mammogram was unremarkable. Breast MRI biopsy requested for further evaluation. COMPARISON: Prior breast MRI scan from [facility] 12/25/2020. CONTRAST: 6 cc of Gadovist. TECHNIQUE [...] was processed and interpreted on the MRI [employer] workstation for biopsy purposes. MRI FINDINGS: Contrasted [...] department in good condition. The attending physician, Heron Ely MD, was present for and performed the entire procedure. Procedure Note Heron Ely MD - 02/11/2021 EXAM: MRI GUIDED VACUUM-ASSISTED CORE NEEDLE BIOPSY AND POST BIOPSY DIGITAL MAMMOGRAM LEFT BREAST (COMBINED REPORT) HISTORY: This is a 30-year-old female with history of bloody nipple discharge. Outside MRI scan of the breast dated 12/08/2020 [facility] demonstrated a 0.8 cm enhancing mass in the central left breast. There was no ultrasound correlate and mammogram was unremarkable. Breast MRI biopsy requested for further evaluation. COMPARISON: Prior breast MRI scan from [facility] 12/25/2020. CONTRAST: 6 cc of Gadovist. TECHNIQUE [...] was processed and interpreted on the MRI [employer] workstation for biopsy purposes. MRI FINDINGS: Contrasted [...] department in good condition. The attending physician, Heron Ely MD, was present for and performed [...] available. This report was electronically signed by HERON ELY M.D. on 02/11/2021 4:04 PM . Wilner Gutierrez DO MAMMO ORDERABLES * PATHOLOGY TISSUE (02/11/2021 2:10 PM HUMAN RESOURCES ASSOCIATE) Case Report Surgical Pathology Report ? Case: [id number] ? Authorizing Provider: ??Wilner Gutierrez, DO ? Collected: ? 02/11/2021 02:10 PM ? Ordering Location: ? [facility] Received: ?02/14/2021 08:09 AM ? CENTER ? Pathologist: ? Cris Medina MD ? Specimen: ?Breast, Left, 0.8 cm mass in left central breast-history of bloody nipple discharge ?? 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 A few cores contain a localized lesion with myxoid stroma and benign epithelial elements diagnostic of fibroadenoma. 02/15/2021 2:32 PM [facility] Clinical History 30-year-old female with history of bloody nipple discharge. Outside MRI scan dated 12/08/[facility] demonstrated a 0.8 cm enhancing mass in the central left breast. There was no ultrasound correlate and mammogram was unremarkable. Breast MRI biopsy performed. 02/15/2021 2:32 PM [facility] Gross Description The requisition and [...] ischemia time: 6 minutes 02/15/2021 2:32 PM [facility] Disclaimer The performance characteristics of all immunohistochemical and indirect immunofluorescence stains (if any) cited in this report were determined by the Histopathology Laboratory of [facility]. Some of these tests were developed by [...] the attending (teaching) pathologist. 02/15/2021 2:32 PM [facility] Embedded Images 02/15/2021 2:32 PM [facility] Pathology/Cytolo gy (Breast, Left) 02/11/2021 2:10 PM HUMAN RESOURCES ASSOCIATE 02/14/2021 8:09 AM HUMAN RESOURCES ASSOCIATE Wilner Gutierrez DO LAB - PATHOLOGY/CYT OLOGY ORDERABLES Performing Organization Address City/[facility]/ZIP Co de Phone Number [facility] [address] [phone] * CREATININE - POCT INTERFACED (02/11/2021 1:21 PM HUMAN RESOURCES ASSOCIATE) Creatinine POCT 0.87 0.30 - 1.30 mg/dL 02/11/2021 1:23 PM [facility] eGFR >60 >60 mL/min/1.7 3 m2 02/11/2021 1:23 PM [facility] Blood BLOOD SPECIMEN / Unknown 02/11/2021 1:21 PM HUMAN RESOURCES ASSOCIATE 02/11/2021 1:23 PM HUMAN RESOURCES ASSOCIATE Wilner Gutierrez DO LAB - POINT OF CARE ORDERABLES [facility] [address] [place] [address], [facility] [phone] documented in this encounter Visit Diagnoses Diagnosis Abnormal finding on breast imaging Other (abnormal) findings on radiological examination of breast documented in this encounter Administered Medications Inactive Administered Medications - up to 3 most recent administrations Medication Order MAR Action Action Date Dose Rate Site lidocaine (Xylocaine) 1 % injection 10 mL 10 mL, Intradermal, ONCE, 1 dose, On Sun02/11/21 at 1300 $ Given 02/11/2021 1:50 PM HUMAN RESOURCES ASSOCIATE 8 mL lidocaine 1% (Xylocaine-MPF) - EPINEPHrine 1:100,000 injection 10 mL, Other, ONCE, 1 dose, On Sun02/11/21 at 1300, Give Intradermal $ Given 02/11/2021 1:50 PM HUMAN RESOURCES ASSOCIATE 20 mL sodium bicarbonate 8.4 % injection 10 mEq 10 mEq, Intradermal, ONCE, 1 dose, On Sun02/11/21 at 1300 $ Given 02/11/2021 1:50 PM HUMAN RESOURCES ASSOCIATE 4 mEq documented in this encounter
--- OUTSIDE RECORDS SUMMARY | 2024-02-17 13:39 | XMS_ITS | Encounter Summary ---
Author Organization [facility] Address [address] [address] [place] [address] [place] [address] Care Team Providers Care Creative Art Therapist Name Role Phone Kit Arriola MD Primary Care Provider [phone] Kit Arriola MD Primary Care Provider [phone] Kit Arriola MD Unavailable [phone] Encounter Details Date Type Department Care Team (Late st Contact Info) Description 08/14/2018 Pre-Procedure Call [facility] Interventional Radiology [place], [place] [id number] Uriel White MD [address] [place] [phone] Social History Tobacco Use Types Packs/Day Years [...] on file documented as of this encounter Plan of Treatment Not on file documented as of this encounter Visit Diagnoses Not on filedocumented in this encounter Care Teams Creative Art Therapist Relationship Specialty Start Date End Date Kit Arriola MD [address] [address] PCP - General 12/01/15 07/13/20 Kit Arriola MD [address] [address] PCP - General FAMILY PRACTICE 07/14/20 Kit Arriola MD [address] [address] 07/14/20 documented as of this encounter
--- OUTSIDE RECORDS SUMMARY | 2024-02-17 13:39 | XMS_ITS | Encounter Summary ---
Author Organization [facility] Address [address] [facility] [place] [address] [place] [address] Care Team Providers Care Lieutenant/Deputy Name Role Phone Kit Arriola MD Primary Care Provider [phone] Kit Arriola MD Unavailable [phone] Encounter Details Date Type Department Care Team (Latest Contact Info) Description 07/30/2020 Travel Social History Tobacco Use Types Packs/Day Years Used Date Smoking Tobacco: Never Assessed Comments No Sex and Gender Information Value Date Recorded Sex Assigned at Not on file Legal Sex Female 8:13 PM CDT Gender Identity Not on file Sexual Orientation Not on file COVID-19 Exposure Response Date Recorded In the last month, have you been in contact with someone who was confirmed or suspected to have Coronavirus / COVID-19? No / Unsure 07/30/2020 7:03 AM CDT documented as of this encounter Plan of Treatment Not on file documented as of this encounter Visit Diagnoses Not on filedocumented in this encounter Care Teams Lieutenant/Deputy Relationship Specialty Start Date End Date Kit Arriola MD [address] [address] PCP - General FAMILY PRACTICE 07/14/20 Kit Arriola MD [address] [address] 07/14/20 documented as of this encounter
--- OUTSIDE RECORDS SUMMARY | 2024-02-17 13:39 | XMS_ITS | Encounter Summary ---
Author Organization [facility] Address [address] [place] [address] Care Team Providers Care Bunch Trimmer Mold Name Role Phone Unavailable Primary Care Provider Unavailabl e Encounter Details Date Type Department Care Team (Latest Contact Info) Description 02/11/2021 Travel Social History Tobacco Use Types Packs/Day [...] COVID-19? No / Unsure 02/11/2021 12:21 PM MARKET INVESTIGATOR documented as of this encounter Plan of Treatment Not on file documented as of this encounter Visit Diagnoses Not on filedocumented in this encounter
--- OUTSIDE RECORDS SUMMARY | 2024-02-17 13:39 | XMS_ITS | Encounter Summary ---
Author Organization [facility] Address Pending sale to [facility] [place] [address] [place] [address] Care Team Providers Care Cloth Dyer Name Role Phone Kit Arriola MD Primary Care Provider [phone] Reason for Visit * Reason Comments Gi Problem nausea and vomiting Chills Dizziness intermittent dizzine ss Body Aches Fever Encounter Details Date Type Department Care Team (Latest Contact Info) Description 02/07/2017 4:16 PM TINSEL MACHINE OPERATOR - 02/07/2017 5:26 PM [facility] Hospital Encounter [facility] [address] [place] [address] Pilar Calvillo NP Gi Problem (nausea and vomiting); Chills; Dizziness (intermittent dizziness); Body Aches; Fever Discharge Disposition: Home or Self Care (Routine Discharge) Social History Tobacco Use Types Packs/Day Years Used Date Smoking Tobacco: Never Smokeless Tobacco: Never Alcohol Use Standard Drinks/Week Comments Yes 0 (1 standard drink = 0.6 oz pur e alcohol) rare use Comments No Sex and Gender Information Value Date Recorded Sex Assigned at Not on file Legal Sex Female 8:13 PM CDT Gender Identity Not on file Sexual Orientation Not on file documented as of this encounter Last Filed Vital Signs Vital Sign Reading Time Taken Comments Blood Pressure 133/85 02/07/2017 4:20 PM TINSEL MACHINE OPERATOR Pulse 118 02/07/2017 4:20 PM TINSEL MACHINE OPERATOR Temperature 36.9 ??C (98.5 ??F) 02/07/2017 4:20 PM CS T Respiratory Rate 16 02/07/2017 4:20 PM TINSEL MACHINE OPERATOR Oxygen Saturation 100% 02/07/2017 4:20 PM TINSEL MACHINE OPERATOR Inhaled Oxygen Concentration - - Weight 72.6 kg (160 lb) 02/07/2017 4:20 PM TINSEL MACHINE OPERATOR Height 165.1 cm (5' 5 ) 02/07/2017 4:20 PM TINSEL MACHINE OPERATOR Body Mass Index 26.63 02/07/2017 4:20 PM TINSEL MACHINE OPERATOR documented in this encounter Discharge Instructions * Discharge Instructions* Pilar Calvillo, GABRIELLE - 02/07/2017 5:09 PM TINSEL MACHINE OPERATOR Images from the original note were not included. Your influenza test was negative today. Purchase Dayquil/Nyquil from the pharmacy to treat your symptoms and take as directed on packaging. Take ibuprofen every 8 hours to treat bodyaches. Increase fluids and rest. Viral Upper Respiratory Infection Discharge Instructions, Adult About this topic You have a viral upper respiratory infection. It is also called a URI or cold. A tiny germ called avirus causes this infection. It often affects your nose, throat, ears, and sinuses. A cold can easily spread from person to person. Coughing, sneezing, and touching something with the germ on it spreads the cold. Viral infections often go away after 2 to 3 weeks without treatment. But some can cause very serious health problems. What care is needed at home? ?? Ask your doctor what you need to do when you go home. Make sure you ask questions if you do not understand what the doctor says. This way you will know what you need to do. ?? Drink lots of water, juice, or broth to replace fluids lost in runny nose and fever. ?? Gargle with warm salt water a few times daily. Mix 1/2 teaspoon (2.5 grams) salt with a cup (240mL) of warm water. ?? Keep your room cool. Use a cool mist humidifier. This will add moisture to the air and help easecongestion and coughing. ?? You may use saline nose drops to relieve stuffiness. ?? Use 2 to 3 pillows under your head and shoulders when you lie down. This will make it easier to breathe and sleep. ?? Do not smoke. Stay away from others who are smoking. What follow-up care is needed? Your doctor may ask you to make visits to the office to check on your progress. Be sure to keep these visits. What drugs may be needed? The doctor may order drugs to: ?? Open up the tubes of your lungs ?? Treat viral infection ?? Relieve or stop coughing ?? Help with pain from a sore throat ?? Relieve runny and stuffy nose ?? Provide oxygen Will physical activity be limited? You need to rest for a few days to let your body recover from the infection. What changes to diet are needed? Eat soft foods like soup if swallowing is too painful. What problems could happen? ?? Asthma attack ?? Sinus infections ?? Lung problems like pneumonia and bronchitis ?? Severe fluid loss. This is dehydration. What can be done to prevent this health problem? ?? Wash your hands often with soap and water for at least 15 seconds, especially after coughing or sneezing. Alcohol-based hand sanitizers also work to kill the virus. ?? If you are sick, cover your mouth and nose with tissue when you cough or sneeze. You can also cough into your elbow. Throw away tissues in the trash and wash your hands after touching used tissues. ?? Do not get too close (kissing, hugging) to people who are sick. ?? Do not share towels or hankies with anyone who is sick. Clean commonly handled things like door handles, remotes, toys, and phones. Wipe them with a disinfectant. ?? Stay away from crowded places. ?? Cover your nose and mouth when you sneeze or cough. ?? Take vitamin C to help build up your body's ability to fight disease. ?? Get a flu shot each year. When do I need to call the doctor? ?? Signs of infection. These include a fever of 100.4??F (38??C) or higher, chills, very bad sore throat, ear or sinus pain, cough, more sputum or change in color of sputum, mouth sores. ?? Throwing up and can't keep liquids down ?? Breathing very fast, more than 40 breaths in 1 minute ?? Trouble breathing while lying down flat on your back ?? Excessive tiredness ?? Your fingertips or lips are starting to turn bluish Teach Back: Helping You Understand The Teach Back Method helps you understand the information we are giving you. The idea is simple. After talking with the staff, tell them in your own words what you were just told. This helps to makesure the staff has covered each thing clearly. It also helps to explain things that may have been abit confusing. Before going home, make sure you are able to do these: ?? I can tell you about my condition. ?? I can tell you what may help ease my signs. ?? I can tell you what I will do if I have a fever, chills, breathing very fast, or trouble breathing. Where can I learn more? [employer] http://www.lung.ca/diseases-maladies/a-z/cold-rhume/index_e.php [employer] [place] [employer]ious [employer] http://www.niaid.nih.gov/topics/commonCold/Pages/treatment.aspx Last Reviewed Date 2014-10-02 Consumer Information Use and Disclaimer This information is not specific medical advice and does not replace information you receive from your health care provider. This is only a brief summary of general information. It does NOT include all information about conditions, illnesses, injuries, tests, procedures, treatments, therapies, discharge instructions or life-style choices that may apply to you. You must talk with your health care provider for complete information about your health and treatment options. This information should not be used to decide whether or not to accept your health care provider???s advice, instructions or recommendations. Only your health care provider has the knowledge and training to provide advice that is right for you. Copyright Copyright ?? 2017 [employer] and its affiliates and/or licensors. All rights reserved. EL MACHINE OPERATOR documented in this encounter ED Notes * Pilar Calvillo NP - 02/07/2017 4:59 PM CST Chief Complaint Chief Complaint Patient presents with ??? Gi Problem nausea and vomiting ??? Chills ??? Dizziness intermittent dizziness ??? Body Aches ??? Fever History of Present Illness HPI Comments: 26 yo F presents with c/o cough, congestion, bodyaches, fever/chills for 2 days. Reports that she feels lightheaded when she stands up. +nausea. Denies vomiting and diarrhea. Took tylenol prior to arrival. Did not get flu vaccine. States that work sent her home today. All systems reviewed and negative except as noted above. Patient is a 26-year-old female presenting with dizziness and fever. 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 Morphine Hives and Itching MEDICATIONS: Prior to Admission medications Not on File PAST MEDICAL HISTORY: Past Medical History: Diagnosis Date ??? PCOS (polycystic ovarian syndrome) PAST SURGICAL HISTORY: Past Surgical History: Procedure Laterality Date ??? CHOLECYSTECTOMY FAMILY HISTORY: Family History Problem Relation Age of Onset ??? Hypertension Father ??? Diabetes Father SOCIAL HISTORY: Social History Substance Use Topics ??? Smoking status: Never Smoker ??? Smokeless tobacco: Never Used ??? Alcohol use Yes Comment: rare use Review of Systems Review of Systems Constitutional: Positive for activity change, appetite change, chills, fatigue and fever. HENT: Positive for congestion. Negative for sore throat. Respiratory: Positive for cough. Cardiovascular: Negative. Gastrointestinal: Positive for nausea. Neurological: Positive for dizziness. All other systems reviewed and are negative. Physical Exam Filed Vitals: 02/07/17 1620 BP: 133/85 Pulse: 118 Resp: 16 Temp: 98.5 ??F (36.9 ??C) TempSrc: Temporal SpO2: 100% Weight: 72.6 kg (160 lb) Height: 5' 5 (1.651 m) Physical Exam Constitutional: She is oriented to person, place, and time. She appears well- developed and well-nourished. She is active. Non-toxic appearance. She does not have a sickly appearance. She does not appear ill. No distress. HENT: Head: Normocephalic. Right Ear: Tympanic membrane and external ear normal. Left Ear: Tympanic membrane, external ear and ear canal normal. Nose: Rhinorrhea present. Mouth/Throat: Uvula is midline, oropharynx is clear and moist and mucous membranes are normal. Eyes: Conjunctivae are normal. Neck: Normal range of motion. Neck supple. Cardiovascular: Normal rate, regular rhythm, normal heart sounds and intact distal pulses. Pulmonary/Chest: Effort normal and breath sounds normal. Musculoskeletal: Normal range of motion. Neurological: She is alert and oriented to person, place, and time. Skin: Skin is warm and dry. Psychiatric: She has a normal mood and affect. Her behavior is normal. Judgment and thought contentnormal. Nursing note and vitals reviewed. Diagnostic Studies / Procedures ELECTROCARDIOGRAMS: No results found for this visit on 02/07/17. LABORATORY STUDIES: Results for orders placed or performed during the hospital encounter of 02/07/17 INFLUENZA A & B Result Value Ref Range Specimen Type NASOPHARYNGEAL SWAB INFLUENZA A NEGATIVE NEGATIVE INFLUENZA B NEGATIVE NEGATIVE IMAGING STUDIES No orders to display ED Course / Medical Decision Making Clinical Impression None Disposition: Data Unavailable Pilar Calvillo NP 02/07/17 1702 EL MACHINE OPERATOR * Gertrudis Benavides RN - 02/07/2017 4:31 PM CST BODY ACHES, CHILLS, COUGH AND CONGESTION EL MACHINE OPERATOR * Anaid Gary RN - 02/07/2017 4:23 PM CST Pt reports vomiting, chills, body aches, occasional cough, sore throat with coughing, body Aches and recent fevers that started yesterday. EL MACHINE OPERATOR documented in this encounter Plan of Treatment Not on file documented as of this encounter Procedures Procedure Name Priority Date/Time Associated Diagnosis Comments INFLUENZA A & B STAT 02/07/2017 4:24 PM TINSEL MACHINE OPERATOR documented in this encounter Results * INFLUENZA A & B (02/07/2017 4:24 PM TINSEL MACHINE OPERATOR) SPECIMEN TYPE NASOPHARYNGEAL SWAB 02/07/2017 4:29 PM TINSEL MACHINE OPERATOR [facility] INFLUENZA A NEGATIVE NEGATIVE 02/07/2017 4:58 PM TINSEL MACHINE OPERATOR [facility] INFLUENZA B NEGATIVE NEGATIVE 02/07/2017 4:58 PM TINSEL MACHINE OPERATOR [facility] Comment: Interpretation: Negative for Influenza A and B. A negative result does not exclude influenza virus infection. If influenza is circulating in your community, a diagnosis of influenza should be considered based on a patient's clinical presentation and empiric antiviral treatment should be considered, if indicated. If more conclusive testing is needed for hospitalized inpatients, follow-up confirmatory testing with RT-PCR requires a separate order. NASAL STRUCTURE / Unknown 02/07/2017 4:24 PM TINSEL MACHINE OPERATOR us Pilar Calvillo PRINTING AND STAMPING SUPERVISOR MICROBIOLOGY - GENERAL ORD ERABLES Final Result [address] [address], documented in this encounter Visit Diagnoses Diagnosis Acute upper respiratory infection- Primary Acute upper respiratory infections of unspecified site documented in this encounter Care Teams Cloth Dyer Relationship Specialty Start Date End Date Kit Arriola MD [address] [address] PCP - General 12/01/15 07/13/20 documented as of this encounter
--- OUTSIDE RECORDS SUMMARY | 2024-02-17 13:39 | XMS_ITS | Encounter Summary ---
Author Organization [facility] Address [address] [place] [address] [place] [address] Care Team Providers Care Section Supervisor Name Role Phone Kit Arriola MD Primary Care Provider [phone] Reason for Visit * Reason Comments Chest Pain Encounter Details Date Type Department Care Team (Late st Contact Info) Description 06/21/2018 2:32 AM CDT - 06/21/2018 7:57 AM CDT Emergency [facility] [place] [address] Rayray Farfan MD Chest Pain Discharge Disposition: Home or Self Care (Routine [...] Sign Reading Time Taken Comments Blood Pressure 111/89 06/21/2018 7:56 AM CDT Pulse 79 06/21/2018 7:56 AM CDT Temperature 36.8 ??C (98.3 ??F) 06/21/2018 2:34 AM CD T Respiratory Rate 18 06/21/2018 7:56 AM CDT Oxygen Saturation 97% 06/21/2018 7:56 AM CDT Inhaled Oxygen Concentration - - Weight 72.6 kg (160 lb) 06/21/2018 2:34 AM CDT Height 165.1 cm (5' 5 ) 06/21/2018 2:34 AM CDT Body Mass Index 26.63 06/21/2018 2:34 AM CDT documented in this encounter Discharge Instructions * Discharge Instructions* Rayray Farfan MD - 06/21/2018 6:56 AM CDT Please drink plenty of fluids at home. Progressively advancing diet as tolerated. Start by drinkingclear sugar-free non-citrus liquids more frequently in smaller amounts. Advance your diet from bland foods (crackers, plain boiled rice, potato, noodles, pasta, oatmeal, boiled egg, boiled vegetables, broths, applesauce, bananas, non-citrus fruits) to your regular foods as tolerated. No greasy, fatty or fried foods, fast food, junk food or snack food. Return to the emergency department if you develop high fevers, have persistent severe abdominal pain, or have bloody stools or vomit, as these could be signs of a more serious medical emergency. Return to the emergency department if you are unable to keep down liquids because of severe nausea/vomiting. Please take the Zofran as prescribed. Place it under your tongue and let the medication disolve on its own. Do not swallow whole.Give the medication time to work prior to eating, approximately 30 minutes. Do not attempt to eat fatty, greasy, heavy meals as this may make you nauseous despite the medication. Please drink clear fluids (water, ?? strength gatorade, broth, pedialyte) and eat simple easy to digest foods. Please go to medlineplus.gov for further information on this medication and its potential side effects. * Attachments The following attachments cannot be sent through Care Everywhere. * Nausea and Vomiting Discharge Instructions, Adult (Cuban) documented in this encounter Medications at Time of Discharge butalbital-acetamino phen-caffeine 50-300-40 MG capsule Take 1 capsule by mouth every 4 (four) hours as needed for Pain. 15 capsule 03/10/2018 9 ondansetron 4 MG disintegrating tablet Take 1 tablet (4 mg total) by mouth every 8 (eight) hours as needed for Nausea. 20 tablet 06/21/2018 9 documented as of this encounter ED Notes * Saul Guevara RN - 06/21/2018 7:56 AM CDT Patient seen, treated, released by ER provider. Saul Guevara RN. * Rayray Farfan MD - 06/21/2018 6:52 AM CDT Chief Complaint Chief Complaint Patient presents with ??? Chest Pain History of Present Illness The patient is an otherwise healthy 28-year-old female who presents the emergency department today due to multiple complaints. Says that yesterday she started having some abdominal pain, some left-sided chest pain, some back pain, nausea and vomiting. Denies any fevers or chills, no diarrhea. Has never had these symptoms before. Denies any difficulty breathing, no recent travel surgeries. Otherwise in her normal state of health Medical History ALLERGIES: Allergies Allergen Reactions ??? Latex Hives ??? Morphine Hives and Itching MEDICATIONS: Prior to Admission medications Medication Sig Start Date End Date Taking? Authorizing Provider ondansetron 4 MG disintegrating tablet Take 1 tablet (4 mg total) by mouth every 8 (eight) hours asneeded for Nausea. 06/21/18 Yes Rayray Farfan MD iuumafchbu-syikxywpyzttc-aaqsrxze 50-300-40 MG capsule Take 1 capsule by mouth every 4 (four) hoursas needed for Pain. 03/10/18 ANA Gee PAST MEDICAL HISTORY: Past Medical History: Diagnosis Date ??? Ectopic ??? Kidney stones ??? PCOS (polycystic ovarian syndrome) on Metformin PAST SURGICAL HISTORY: Past Surgical History: Procedure Laterality Date ??? CHOLECYSTECTOMY FAMILY HISTORY: Family History Problem Relation Name Age of Onset ??? Stroke Father SOCIAL HISTORY: Social History Tobacco Use ??? Smoking status: Never Smoker ??? Smokeless tobacco: Never Used Substance Use Topics ??? Alcohol use: No Comment: rare use ??? Drug use: No Review of Systems Review of Systems Constitutional: Positive for fatigue. HENT: Negative for rhinorrhea. Eyes: Negative for photophobia. Respiratory: Negative for cough. Cardiovascular: Positive for chest pain. Gastrointestinal: Positive for abdominal pain. Genitourinary: Negative for dysuria. Musculoskeletal: Negative for myalgias and neck stiffness. Skin: Negative for rash. Neurological: Positive for weakness. Physical Exam Filed Vitals: 06/21/18 0234 BP: 100/79 Pulse: 85 Resp: 16 Temp: 98.3 ??F (36.8 ??C) TempSrc: Temporal SpO2: 100% Weight: 72.6 kg (160 lb) Height: 5' 5 (1.651 m) Physical Exam Constitutional: She is oriented to person, place, and time. She appears well- developed and well-nourished. No distress. HENT: Head: Normocephalic and atraumatic. Eyes: EOM are normal. Neck: Normal range of motion. Cardiovascular: Normal rate, regular rhythm, normal heart sounds and intact distal pulses. Exam reveals no gallop and no friction rub. No murmur heard. Pulmonary/Chest: Effort normal and breath sounds normal. No respiratory distress. She has no wheezes. She has no rales. Abdominal: Soft. Bowel sounds are normal. She exhibits no distension. There is no tenderness. Thereis no rebound and no guarding. Musculoskeletal: Normal range of motion. Neurological: She is alert and oriented to person, place, and time. Skin: Skin is warm and dry. She is not diaphoretic. Psychiatric: She has a normal mood and affect. Her behavior is normal. Judgment normal. Nursing note and vitals reviewed. Diagnostic Studies / Procedures ELECTROCARDIOGRAMS: Results for orders placed or performed during the hospital encounter of 06/21/18 ECG 12-Lead Narrative [address] Test Date: 2018-06-21 Pat Name: MUKUND GAONA Department: Room: Gender: Female Manager Pe: [facility] : 1990 Requested By: RAYRAY FARFAN Order Number: [id number] Jairo MD: Measurements Intervals [place] Rate: 91 P: 14 OK: 131 QRS: 57 QRSD: 76 T: 4 QT: 351 QTc: 433 Interpretive Statements SINUS RHYTHM NONSPECIFIC T-WAVE ABNORMALITY No previous ECG available for comparison ECG [address] [facility] Test Date: 2018-06-21 Pat Name: MUKUND GAONA Department: Room: [facility] Gender: Female Manager Pe: [facility] : 1990 Requested By: RAYRAY FARFAN Order Number: [id number] Reading MD: Measurements Intervals [place] Rate: 83 P: 12 OK: 138 QRS: 50 QRSD: 84 T: 8 QT: 358 QTc: 421 Interpretive Statements SINUS RHYTHM Compared to ECG 06/21/2018 02:34:21 T-wave abnormality no longer present LABORATORY STUDIES: Results for orders placed or performed during the hospital encounter of 06/21/18 CBC W/DIFF AUTOMATED Result Value Ref Range WBC 7.2 4.5 - 11.0 x10'3/uL RBC 4.45 4.20 - 5.40 x10'6/uL HGB 13.0 12.0 - 16.0 G/DL HCT 39.3 38.0 - 48.0 % MCV 88.3 81.0 - 99.0 FL MCH 29.2 27.0 - 31.0 PG MCHC 33.1 32.0 - 36.0 G/DL RDW 13.8 11.5 - 14.5 % PLT 324 130 - 400 x10'3/uL MPV 10.1 9.3 - 12.2 FL DIFFERENTIAL TYPE AUTOMATED DIFFERENTIAL NEUTROPHILS 68.8 % LYMPHOCYTES 22.5 % MONOCYTES 6.5 % EOSINOPHILS 1.3 % BASOPHILS 0.6 % IMMATURE GRANS 0.3 % ABS. NEUTROPHILS TOTAL 4.95 1.80 - 7.70 x10'3/uL ABS. LYMPHOCYTES 1.62 1.00 - 4.80 x10'3/uL ABS. MONOCYTES 0.47 0.24 - 0.86 x10'3/uL ABS. EOSINOPHILS 0.09 0.04 - 0.36 x10'3/uL ABS. BASOPHILS 0.04 0.01 - 0.08 x10'3/uL ABS. IMMATURE GRANULOCYTES 0.02 0.00 - 0.49 x10'3/uL COMPREHENSIVE METABOLIC PANEL Result Value Ref Range GLUCOSE 90 70 - 99 MG/DL BUN 16 7 - 18 MG/DL CREATININE 0.67 0.55 - 1.02 MG/DL SODIUM 139 136 - 145 MMOL/L POTASSIUM 3.4 (L) 3.5 - 5.1 MMOL/L CHLORIDE 107 100 - 108 MMOL/L CO2 22.5 21 - 32 MMOL/L CALCIUM 8.6 8.5 - 10.1 MG/DL TOTAL BILIRUBIN 1.1 0.2 - 1.2 MG/DL TOTAL PROTEIN 7.1 6.4 - 8.2 G/DL ALBUMIN 3.6 3.4 - 5.0 G/DL AST 16 15 - 37 U/L ALT 22 14 - 55 U/L ALK PHOS 73 50 - 136 U/L ANION GAP 12.9 8 - 20 MMOL/L BUN CREATININE RATIO 24.0 6 - 26 A/G RATIO 1.0 1.0 - 2.0 RATIO eGFR Non-Afr. Amer. >90 >90 ML/MIN/1.73 M2 eGFR Afr. Amer. >90 >90 ML/MIN/1.73 M2 TROPONIN, QUANT Result Value Ref Range TROPONIN I <0.015 <0.045 ng/mL. TROPONIN, QUANT Result Value Ref Range TROPONIN I <0.015 <0.045 ng/mL. URINALYSIS WI REFLEX TO CULTURE Result Value Ref Range Specimen Type URINE CLEAN CATCH COLOR SHARON TRANSPARENCY CLOUDY Specific Sassafras (U) 1.030 1.001 - 1.030 U PH 5.0 5.0 - 9.0 LEUKOCYTE ESTERASE SMALL (A) NEGATIVE NITRITES NEGATIVE NEGATIVE PROTEIN, URINE 30 (H) <30 MG/DL URINE GLUCOSE NEGATIVE NEGATIVE MG/DL U KETONES TRACE (A) NEGATIVE MG/DL UROBILINOGEN NEGATIVE NEGATIVE MG/DL Urine Bilirubin NEGATIVE NEGATIVE MG/DL BLOOD MODERATE (A) NEGATIVE CULTURE & SENSITIVITY INDICATED? SPECIMEN SETUP FOR CULTURE SQUAMOUS EPITHELIALS MANY /LPF MUCUS MANY /LPF WBC/HPF 26 (H) <6 /HPF RBC/HPF 7 (H) <6 /HPF LIPASE Result Value Ref Range LIPASE 109 73 - 393 UNITS/L POCT urine Result Value Ref Range URINE HCG TEST Negative NEGATIVE INT CTRL PERFORMED EXPECTED? yes IMAGING STUDIES XR CHEST PORTABLE Final Result by User, [id number] (06/21 9633) Examination: Chest radiograph Exam time: 06/21/2018 3:11 AM Clinical history: Left chest pain Comparison: May 26, 2009 Technique: One view of the chest obtained. Findings: Lungs are adequately inflated and clear. No pneumothorax or pleural effusions evident. The cardiac silhouette, mediastinal contours, and pulmonary vessels appear within normal limits. Osseous structures are unremarkable. IMPRESSION: No acute findings. Course / Medical Decision Making The patient is an otherwise healthy 28-year-old female who presents the emergency department with abdominal pain chest pain nausea vomiting. Differential includes but is not limited to upper respiratory infection, urinary tract infection, unlikely ACS, no concern for pulmonary embolism or severe int ra-abdominal infection given normal physical examination. Patient's blood work was unremarkable other than a mildly low potassium. Urinalysis contaminated, will send for culture. Chest x-ray was clear EKG normal troponins negative x2. Was given Zofran. Patient is able to tolerate oral intake will discharge home for follow-up with primary care provider Clinical Impression Vomiting (Primary) Hypokalemia Disposition: Discharge Rayray Farfan MD 06/21/18 0722 * Chago Brasher RN - 06/21/2018 2:38 AM CDT Pt here with c/o left chest pain that radiates to rt lower back with n/v that started yesterday while she was at work. Rating pain 7/10. Denies any cardiac hx CHAGO BRASHER RN documented in this encounter Plan of Treatment Not on file documented as of this encounter Procedures Procedure Name Priority Date/Time Associated Diagnosis Comments TROPONIN, QUANT STAT 06/21/2018 5:53 AM CDT ECG 12-LEAD STAT 06/21/2018 5:46 AM CDT XR CHEST PORTABLE STAT 06/21/2018 3:1 1 AM CDT POCT URINE (BACK OFFICE) STAT 06/21/2018 2:53 AM CDT URINALYSIS WI REFLEX TO CULTURE STAT 06/21/2018 2:49 AM CDT URINE BACTERIA CULTURE Routine 9 2:49 AM CDT COMPREHENSIVE METABOLIC PANEL STAT 06/21/2018 2:49 AM CDT CBC W/DIFF AUTOMATED STAT 06/21/2018 2:49 AM CDT TROPONIN, QUANT STAT 06/21/2018 2:49 AM CDT LIPASE STAT 06/21/2018 2:49 AM CDT ECG 12-LEAD STAT 06/21/2018 2:34 AM CDT documented in this encounter Results * TROPONIN, QUANT (06/21/2018 5:53 AM CDT) TROPONIN I <0.015 <0.045 ng/mL. 06/21/2018 6:34 AM CDT [facility] Comment: HIGH DOSES OF BIOTIN MAY INTERFERE WITH THIS TEST RESULT. CORRELATION TO CLINICAL HISTORY AND PRESENTATION RECOMMENDED. 06/21/2018 5:53 AM CDT Rayray Farfan MD LABORATORY Final Result [facility] [address] [place] [address], * ECG 12 lead (06/21/2018 5:46 AM CDT) 06/21/2018 5:46 AM CDT Narrative [facility] - 06/21/2018 7:16 AM CDT ?[facility] ? [address], [place] ? Test Date: ?2018-06-21 Pat Name: ? MUKUND CANDELARIA ?Department: ? Room: ? INPR Gender: ? Female ? Manager Pe: ?? [facility] : ?1990 ? Requested By: RAYRAY ADOLPH Order Number: [id number] ? Reading MD: ?? Tim Vital ? Measurements Intervals ?[place] ? Rate: ? 83 ? P: ?12 OK: ? 138 ?QRS: ?50 QRSD: ? 84 ? T: ?8 QT: ? 358 ? QTc: ?421 ? Interpretive Statements SINUS RHYTHM Compared to ECG 06/21/2018 02:34:21 T-wave abnormality no longer present Procedure Note Tim Vital MD - 06/21/[address] [facility] [address] Test Date: 2018-06-21 Pat Name: MUKUND GAONA Department: Room: [facility] Gender: Female Manager Pe: [facility] : 1990 Requested By: RAYRAY FARFAN Order Number: [id number] Reading MD: Tim Vital Measurements Intervals [place] Rate: 83 P: 12 OK: 138 QRS: 50 QRSD: 84 T: 8 QT: 358 QTc: 421 Interpretive Statements SINUS RHYTHM Compared to ECG 06/21/2018 02:34:21 T-wave abnormality no longer present us Rayray Farfan MD ECG ORDERABLES Final Result Performing Organization Address City/State/[facility] Co de Phone Number [facility] * XR CHEST PORTABLE (06/21/2018 3:11 AM CDT) Anatomical Region Laterality Modality Chest Fluoroscopy 06/21/2018 3:27 AM CDT Impressions 06/21/2018 3:27 AM CDT IMPRESSION: No acute findings. Narrative 06/21/2018 3:27 AM CDT Examination: Chest radiograph Exam time: 06/21/2018 3:11 AM Clinical history: Left chest pain Comparison: May 26, 2009 Technique: ??One view of the chest obtained. Findings: Lungs are adequately inflated and clear. No pneumothorax or pleural effusions evident. The cardiac silhouette, mediastinal contours, and pulmonary vessels appear within normal limits. Osseous structures are unremarkable. ?? Procedure Note Yfn Stein MD - 06/21/2018 Examination: Chest radiograph Exam time: 06/21/2018 3:11 AM Clinical history: Left chest pain Comparison: May 26, 2009 Technique: One view of the chest obtained. Findings: Lungs are adequately inflated and clear. No pneumothorax or pleural effusions evident. The cardiac silhouette, mediastinal contours, and pulmonary vessels appear within normal limits. Osseous structuresare unremarkable. IMPRESSION: No acute findings. us Rayray Farfan MD GENERAL IMAGING Final Result * POCT urine (06/21/2018 2:53 AM CDT) URINE HCG TEST Negative NEGATIVE Internal Control performed as Expected? yes Comment:[id number] exp:2019 us Rayray Farfan MD POINT OF CARE TEST ORDERABLES Fi nal Result * CULTURE URINE (06/21/2018 2:49 AM CDT) SPEC DESCRIPTION URINE CLEAN CATCH 06/21/2018 3:45 AM CDT [facility] SPECIAL REQUESTS NO SPECIAL REQUEST 06/21/2018 3:45 AM CDT [facility] CULTURE RESULT POLYMICROBIAL GROWTH CONSISTENT WITH NORMAL GENITAL PHILIP. ?? SUSCEPTIBILITIES NOT ROUTINELY PERFORMED. 06/23/2018 12:35 PM CDT [facility] URINE SPECIMEN OBTAINED BY CLEAN CATCH PROCEDURE / Unknown 06/21/2018 2:49 AM CDT 06/21/2018 3:44 AM CDT us Rayray Farfan MD MICROBIOLOGY - GENERAL ORDERABLE S Final Result [facility] [address] [place] [address], [place] [phone] * LIPASE (06/21/2018 2:49 AM CDT) LIPASE 109 73 - 393 UNITS/L 06/21/2018 3:07 AM CDT [facility] 06/21/2018 2:49 AM CDT Rayray Farfan MD LABORATORY Final Result [facility] [address] [place] [address], [place] [phone] * (ABNORMAL) URINALYSIS WI REFLEX TO CULTURE (06/21/2018 2:49 AM CDT) SPECIMEN TYPE URINE CLEAN CATCH 06/21/2018 2:45 AM CDT [facility] COLOR (U) SHARON 06/21/2018 3:40 AM CDT [facility] TRANSPARENCY CLOUDY 06/21/2018 3:40 AM CDT [facility] SPECIFIC GRAVITY (U) 1.030 1.001 - 1.030 06/21/2018 3:40 AM CDT [facility] U PH 5.0 5.0 - 9.0 06/21/2018 3:40 AM CDT [facility] LEUKOCYTES (U) SMALL(A) NEGATIVE 06/21/2018 3:40 AM CDT [facility] NITRITES NEGATIVE NEGATIVE 06/21/2018 3:40 AM CDT [facility] PROTEIN (U) 30(H) <30 MG/DL 06/21/2018 3:40 AM CDT [facility] URINE GLUCOSE NEGATIVE NEGATIVE MG/DL 06/21/2018 3:40 AM CDT [facility] KETONES MG/DL (U) TRACE(A) NEGATIVE MG/DL 06/21/2018 3:40 AM CDT [facility] UROBILINOGEN NEGATIVE NEGATIVE MG/DL 06/21/2018 3:40 AM CDT [facility] BILIRUBIN (U) NEGATIVE NEGATIVE MG/DL 06/21/2018 3:40 AM CDT [facility] BLOOD (U) MODERATE(A) NEGATIVE 06/21/2018 3:40 AM CDT [facility] CULTURE & SENSITIVITY INDICATED? SPECIMEN SETUP FOR CULTURE 06/21/2018 3:40 AM CDT [facility] SQUAMOUS EPITHELIALS MANY /LPF 06/21/2018 3:40 AM CDT [facility] MUCUS MANY /LPF 06/21/2018 3:40 AM CDT [facility] WBC/HPF 26(H) <6 /HPF 06/21/2018 3:40 AM CDT [facility] RBC/HPF 7(H) <6 /HPF 06/21/2018 3:40 AM CDT [facility] URINE SPECIMEN OBTAINED BY CLEAN CATCH PROCEDURE / Unknown 06/21/2018 2:49 AM CDT Rayray Farfan MD URINE ORDERABLES Final Result [facility] [address] [place] [address], [place] [phone] * TROPONIN, QUANT (06/21/2018 2:49 AM CDT) TROPONIN I <0.015 <0.045 ng/mL. 06/21/2018 3:37 AM CDT [facility] Comment: HIGH DOSES OF BIOTIN MAY INTERFERE WITH THIS TEST RESULT. CORRELATION TO CLINICAL HISTORY AND PRESENTATION RECOMMENDED. 06/21/2018 2:49 AM CDT Rayray Farfan MD LABORATORY Final Result [facility] [address] [place] [address], [place] [phone] * (ABNORMAL) COMPREHENSIVE METABOLIC PANEL (06/21/2018 2:49 AM CDT) Pathologist [facility] GLUCOSE 90 70 - 99 MG/DL 06/21/2018 3:37 AM CDT [facility] BUN 16 7 - 18 MG/DL 06/21/2018 3:37 AM CDT [facility] CREATININE S/P/B 0.67 0.55 - 1.02 MG/DL 06/21/2018 3:37 AM CDT [facility] SODIUM S/P/B 139 136 - 145 MMOL/L 06/21/2018 3:37 AM CDT [facility] POTASSIUM S/P/B 3.4(L) 3.5 - 5.1 MMOL/L 06/21/2018 3:37 AM CDT [facility] CHLORIDE S/P/B 107 100 - 108 MMOL/L 06/21/2018 3:37 AM CDT [facility] CO2 22.5 21 - 32 MMOL/L 06/21/2018 3:37 AM CDT [facility] CALCIUM S/P/B 8.6 8.5 - 10.1 MG/DL 06/21/2018 3:37 AM CDT [facility] BILIRUBIN TOTAL S/P/B 1.1 0.2 - 1.2 MG/DL 06/21/2018 3:37 AM CDT [facility] TOTAL PROTEIN S/P/B 7.1 6.4 - 8.2 G/DL 06/21/2018 3:37 AM CDT [facility] ALBUMIN S/P/B 3.6 3.4 - 5.0 G/DL 06/21/2018 3:37 AM CDT [facility] AST 16 15 - 37 U/L 06/21/2018 3:37 AM CDT [facility] ALT 22 14 - 55 U/L 06/21/2018 3:37 AM CDT [facility] ALKALINE PHOSPHATASE S/P/B 73 50 - 136 U/L 06/21/2018 3:37 AM CDT [facility] ANION GAP 12.9 8 - 20 MMOL/L 06/21/2018 3:37 AM CDT [facility] BUN CREATININE RATIO 24.0 6 - 26 06/21/2018 3:37 AM T [facility] A/G RATIO 1.0 1.0 - 2.0 RATIO 06/21/2018 3:37 AM T [facility] EGFR NON-AFR. AMER. >90 >90 ML/MIN/1.7 3 M2 06/21/2018 3:37 AM T [facility] EGFR AFR. AMER. >90 >90 ML/MIN/1.7 3 M2 06/21/2018 3:37 AM T [facility] Comment: NOTE: eGFR is not calculated for patients <18 years of age. This is an estimated GFR (CKD EPI) and should not be used for calculating drug doses. 06/21/2018 2:49 AM CDT Rayray Farfan MD LABORATORY Final Result [facility] [address] [place] [address], [place] [phone] * CBC W/DIFF AUTOMATED (06/21/2018 2:49 AM CDT) WBC 7.2 4.5 - 11.0 x10'3/uL 06/21/2018 3:02 AM CDT [facility] RBC 4.45 4.20 - 5.40 x10'6/uL 06/21/2018 3:02 AM CDT [facility] HGB 13.0 12.0 - 16.0 G/DL 06/21/2018 3:02 AM CDT [facility] HCT 39.3 38.0 - 48.0 % 06/21/2018 3:02 AM CDT [facility] MCV 88.3 81.0 - 99.0 FL 06/21/2018 3:02 AM CDT [facility] MCH 29.2 27.0 - 31.0 PG 06/21/2018 3:02 AM CDT [facility] MCHC 33.1 32.0 - 36.0 G/DL 06/21/2018 3:02 AM CDT [facility] RDW 13.8 11.5 - 14.5 % 06/21/2018 3:02 AM T [facility] PLT 324 130 - 400 x10'3/uL 06/21/2018 3:02 AM T [facility] MPV 10.1 9.3 - 12.2 FL 06/21/2018 3:02 AM CDT [facility] DIFFERENTIAL TYPE AUTOMATED DIFFERENTIAL 06/21/2018 3:02 AM CDT [facility] NEUTROPHILS % 68.8 % 06/21/2018 3:02 AM CDT [facility] LYMPHOCYTES % 22.5 % 06/21/2018 3:02 AM T [facility] MONOCYTES % 6.5 % 06/21/2018 3:02 AM CDT [facility] EOSINOPHILS 1.3 % 06/21/2018 3:02 AM CDT [facility] BASOPHILS 0.6 % 06/21/2018 3:02 AM CDT [facility] IMMATURE GRANS % 0.3 % 06/22/19 3:02 AM CDT [facility] ABS. NEUTROPHILS TOTAL 4.95 1.80 - 7.70 x10'3/uL 06/21/2018 3:02 AM CDT [facility] ABS. LYMPHOCYTES 1.62 1.00 - 4.80 x10'3/uL 06/21/2018 3:02 AM CDT [facility] ABS. MONOCYTES 0.47 0.24 - 0.86 x10'3/uL 06/21/2018 3:02 AM CDT [facility] ABS. EOSINOPHILS 0.09 0.04 - 0.36 x10'3/uL 06/21/2018 3:02 AM CDT [facility] ABS. BASOPHILS 0.04 0.01 - 0.08 x10'3/uL 06/21/2018 3:02 AM CDT [facility] ABS. IMMATURE GRANULOCYTES 0.02 0.00 - 0.49 x10'3/uL 06/21/2018 3:02 AM CDT [facility] 06/21/2018 2:49 AM CDT us Rayray Farfan MD LABORATORY Final Result [facility] [address] [place] [address], [place] [phone] * ECG 12-Lead (06/21/2018 2:34 AM CDT) 06/21/2018 2:34 AM CDT Narrative [facility] - 06/21/2018 7:13 AM CDT ?[facility] ? [address], [place] ? Test Date: ?2018-06-21 Pat Name: ? MUKUND CANDELARIA ?Department: ? Room: ? INPR Gender: ? Female ? Manager Pe: ?? [facility] : ?1990 ? Requested By: RAYRAY ADOLPH Order Number: [id number] ? Reading MD: ?? Tim Vital ? Measurements Intervals ?[place] ? Rate: ? 91 ? P: ?14 OK: ? 131 ?QRS: ?57 QRSD: ? 76 ? T: ?4 QT: ? 351 ? QTc: ?433 ? Interpretive Statements SINUS RHYTHM NONSPECIFIC T-WAVE ABNORMALITY No previous ECG available for comparison No ischemic changes Rayray Farfan M.D. Procedure Note Tim Vital MD - 06/21/2018 [facility] Test Date: 2018-06-21 Pat Name: MUKUND GAONA Department: Room: [facility] Gender: Female Manager Pe: [facility] : 1990 Requested By: RAYRAY FARFAN Order Number: [id number] Reading MD: Tim Vital Measurements Intervals [place] Rate: 91 P: 14 OK: 131 QRS: 57 QRSD: 76 T: 4 QT: 351 QTc: 433 Interpretive Statements SINUS RHYTHM NONSPECIFIC T-WAVE ABNORMALITY No previous ECG available for comparison No ischemic changes Rayray Farfan M.D. us Rayray Farfan MD ECG ORDERABLES Final Result [facility] documented in this encounter Visit Diagnoses Diagnosis Vomiting- Primary Vomiting alone Hypokalemia Hypopotassemia documented in this encounter Administered Medications Inactive Administered Medications - up to 3 most recent administrations Medication Order MAR Action Action Date Dose Rate Site ondansetron (ZOFRAN) injection 4 mg 4 mg, Intravenous, Once, 1 dose, On Sun06/21/18 at 0700, IV push over 2-5 minutes. Given 06/21/2018 7:00 AM CDT 4 mg potassium chloride CR (K-TAB) tablet 40 mEq 40 mEq, Oral, Once, 1 dose, On Sun06/21/18 at 0700, Do not break, chew, or crush. Given 06/21/2018 7:20 AM CDT 40 mEq documented in this encounter Active and Recently Administered Medications Times are shown in CDT. Scheduled Medication Order 06/19/2018 06/20/2018 06/21/2018 aspirin chewable tablet 324 mg 324 mg, Oral, Once, 1 dose, On Sun06/21/18 at 0245, If not given by EMS or taken immediately prior to arrival 0720 (Hold - Provide r: Saul Guevara, COCO - Reason: Nausea or Vomiting) ondansetron (ZOFRAN) injection 4 mg (COMPLETED) 4 mg, Intravenous, Once, 1 dose, On Sun06/21/18 at 0700, IV push over 2-5 minutes. 0700 (Given - Provid er: Chago Brasher RN) potassium chloride CR (K-TAB) tablet 40 mEq (COMPLETED) 40 mEq, Oral, Once, 1 dose, On Sun06/21/18 at 0700, Do not break, chew, or crush. 0720 (Given - Provid er: Saul Guevara, RN) documented in this encounter Care Teams Section Supervisor Relationship Specialty Start Date End Date Kit Arriola MD [address] [address] PCP - General 12/01/15 07/13/20 documented as of this encounter
--- OUTSIDE RECORDS SUMMARY | 2024-02-17 13:39 | XMS_ITS | Encounter Summary ---
Author Organization [facility] Address [address] [facility]. [place], [place] [address] [place] [address] Care Team Providers Care Waste Machine Tender Name Role Phone Kit Arriola MD Primary Care Provider [phone] Reason for Visit * Reason Comments Ankle Pain RIGHT Encounter Details Date Type Department Care Team (Late st Contact Info) Description 03/21/2018 9:21 PM PERSONNEL SECURITY ASSISTANT - 03/21/2018 9:57 PM PERSONNEL SECURITY ASSISTANT Emergency [facility] [place] [address] Nalini Gardner, CRESENCIO [address] [place] [address] Ankle Pain (RIGHT) Discharge Disposition: Home or Self Care (Routine [...] Sign Reading Time Taken Comments Blood Pressure 128/90 03/21/2018 8:01 PM PERSONNEL SECURITY ASSISTANT Pulse 92 03/21/2018 8:01 PM PERSONNEL SECURITY ASSISTANT Temperature 36.4 ??C (97.6 ??F) 03/21/2018 8:01 PM CS T Respiratory Rate 18 03/21/2018 8:01 PM PERSONNEL SECURITY ASSISTANT Oxygen Saturation 98% 03/21/2018 8:01 PM PERSONNEL SECURITY ASSISTANT Inhaled Oxygen Concentration - - Weight 79.9 kg (176 lb 3.2 oz) 03/21/2018 8:01 P M PERSONNEL SECURITY ASSISTANT Height 165.1 cm (5' 5 ) 03/21/2018 8:01 PM PERSONNEL SECURITY ASSISTANT Body Mass Index 29.32 03/21/2018 8:01 PM PERSONNEL SECURITY ASSISTANT documented in this encounter Discharge Instructions * Discharge Instructions* CRESENCIO Valenzuela - 03/21/2018 9:20 PM PERSONNEL SECURITY ASSISTANT 1)Important to rest the affected area for the next 24-48 hours. Ice 20 min on and off multiple times a day to help reduce swelling. Keep area wrapped and elevated above heart level. Can use Tylenol/Iburprofen per packet instructions for additional pain relief. 2) Follow up with Dr. Arriola in 1 week for re-evaluation. 3) Return to the Emergency Department for any new or worsening symptoms which include:fever, loss of sensation, loss of mobility, loss of warmth/color in affected area, increase pain/redness/swelling. ONNEL SECURITY ASSISTANT * Attachments The following attachments cannot be sent through Care Everywhere. * Ankle Sprain Discharge Instructions (Mexican) * Ankle Sprain (Mexican) documented in this encounter Medications at Time of Discharge butalbital-acetam inophen-caffeine 50-300-40 MG capsule Take 1 capsule by mouth every 4 (four) hours as needed for Pain. 15 capsule 03/10/2018 12/19/2018 documented as of this encounter ED Notes * CRESENCIO Valenzuela - 03/21/2018 8:07 PM CST ED NOTE Chief Complaint Chief Complaint Patient presents with ??? Ankle Pain RIGHT History of Present Illness Roxana Amos is a 28-year-old female who presents to the ER with c/o right ankle pain that began yesterday when she missed a stair incorrectly. Pt states that she has been unable to bear weight on her right ankle because of the pain. Pt has been taking ibuprofen, last dose 1600 today. No associated knee pain or hip pain. No surgical fixation to the affected area. Medical History ALLERGIES: Allergies Allergen Reactions ??? Latex Hives ??? Morphine Hives and Itching MEDICATIONS: Prior to Admission medications Medication Sig Start Date End Date Taking? Authorizing Provider [id number]-uvyvgfts 50-300-40 MG capsule Take 1 capsule by [...] Review of Systems Review of Systems Constitutional: Negative for chills and fever. HENT: Negative for ear pain, sinus pain and sore throat. Eyes: Negative for pain and visual disturbance. Respiratory: Negative for cough and shortness of breath. Cardiovascular: Negative for chest pain and palpitations. Gastrointestinal: Negative for abdominal pain, diarrhea, nausea and vomiting. Genitourinary: Negative for dysuria, hematuria and urgency. Musculoskeletal: Positive for arthralgias. Negative for back pain and neck pain. Skin: Negative for rash and wound. Neurological: Negative for dizziness, tremors, seizures and numbness. Psychiatric/Behavioral: Negative. Physical Exam Filed Vitals: 03/21/182000 BP: 128/90 Pulse: 92 Resp: 18 Temp: 97.6 ??F (36.4 ??C) TempSrc: Temporal SpO2: 98% Weight: 79.9 kg (176 lb 3.2 oz) Height: 5' 5 (1.651 m) Physical Exam Constitutional: She is oriented to person, place, and time. She appears well- developed and well-nourished. Non-toxic appearing HENT: Head: Normocephalic and atraumatic. Eyes: Conjunctivae are normal. Neck: Normal range of motion. Neck supple. Cardiovascular: Normal rate, regular rhythm, normal heart sounds and intact distal pulses. Pulmonary/Chest: Effort normal and breath sounds normal. No respiratory distress. Abdominal: Soft. Bowel sounds are normal. There is no tenderness. Musculoskeletal: Right ankle-prominent swelling along the lateral aspect of ankle. No open laceration. Limited rangeof motion secondary to pain and swelling in ankle. Right foot-no distal pain. Able to wiggle all toes. Distal pulses, sensation, cap refill and temperature intact. Diminished strength secondary to pain in ankle. Right knee- No deformity, swelling, evidence of trauma, overlying warmth/redness. Full AROM, nonttp. Right lower leg- compartments soft, well perfused. No calf pain Neurological: She is alert and oriented to person, place, and time. Skin: Skin is warm and dry. Capillary refill takes less than 2 seconds. Psychiatric: She has a normal mood and affect. Her behavior is normal. Nursing note and vitals reviewed. Diagnostic Studies / Procedures ELECTROCARDIOGRAMS: No results found for this visit on 03/21/18. LABORATORY STUDIES: Results for orders placed or performed during the hospital encounter of 03/21/18 POCT urine Result Value Ref Range URINE HCG TEST NEGATIVE NEGATIVE INT CTRL PERFORMED EXPECTED? YES LOT#:[id number] EXP:06/05/2019 IMAGING STUDIES XR FOOT RT 3V Final Result by User, [id number] (03/21 2115) Date: 03/21/2018 9:04 PM Exam: XR FOOT RT 3V, XR ANKLE RT 2V Comparison: Right foot radiography dated 12/13/2008. Technique: 3 views of the right foot. 2 views of the right ankle. History: Fell downstairs last night. Twisting right ankle injury. Pain with weightbearing. Swelling. Findings: The ankle mortise is intact without malleolar fracture. The talar dome appears normal without osteochondral lesion. The hindfoot appears intact without arthritis. The arch of the foot appears normal. The mid foot tarsals, metatarsals and phalanges are intact. There is no arthritis. There is soft tissue swelling of the lateral right ankle. Impression: No acute osseous abnormality. Soft tissue swelling of the lateral right ankle. ANKLE RT 2V Final Result by User, [id number] (03/21 2115) Date: 03/21/2018 9:04 PM Exam: XR FOOT RT 3V, XR ANKLE RT 2V Comparison: Right foot radiography dated 12/13/2008. Technique: 3 views of the right foot. 2 views of the right ankle. History: Fell downstairs last night. Twisting right ankle injury. Pain with weightbearing. Swelling. Findings: The ankle mortise is intact without malleolar fracture. The talar dome appears normal without osteochondral lesion. The hindfoot appears intact without arthritis. The arch of the foot appears normal. The mid foot tarsals, metatarsals and phalanges are intact. There is no arthritis. There is soft tissue swelling of the lateral right ankle. Impression: No acute osseous abnormality. Soft tissue swelling of the lateral right ankle. Course / Medical Decision Making MDM Number of Diagnoses or Management Options Ankle sprain: Amount and/or Complexity of Data Reviewed Tests in the radiology section of CPT??: reviewed and ordered ED Course as of Mar 21 2129SunMar 21, [id number] URINE HCG TEST: NEGATIVE [AB] 2117 Per rad rad: No acute osseous abnormality. Soft tissue swelling of the lateral right ankle. ?? XR ANKLE RT 2V [AB] 2117 Per rad read: No acute osseous abnormality. Soft tissue swelling of the lateral right ankle. ?? XR FOOT RT 3V [AB] 2119 Negative for any acute osseous abnormality. Suspect possible sprain. Plan to treat conservatively and have patient follow closely with PCP. Neurovascular status intact post application of stirrup. Strict verbal return precautions reviewed. Patient expresses verbal understanding and agreement with plan. All questions answered to the best of my ability. Nontoxic exit exam. Patient discharged home in stable condition. [AB] ED Course User Index [AB] CRESENCIO Valencia Medications - No data to display Clinical Impression Ankle sprain (Primary) Current Discharge Medication List Disposition: Discharge Follow-Up: Kit Arriola MD [address] [place] [address] CRESENCIO VALENCIA 03/21/2018 CRESENCIO Valencia 03/21/182129 Cosigned by Parminder Vasquez MD at 03/21/2018 9:47 PM PERSONNEL SECURITY ASSISTANT ONNEL SECURITY ASSISTANT ONNEL SECURITY ASSISTANT * ANA Franklin - 03/21/2018 8:04 PM CST [place], [place] EMERGENCY DEPARTMENT ENCOUNTER Medical Screening Examination 03/21/18 8:04 PM Chief Complaint : Ankle Pain (RIGHT) HPI : Roxana Amos is a 28-year-old female who presents to the ER with c/o right ankle painthat began yesterday when she missed a stair incorrectly. Pt states that she has been unable to bear weight on her right ankle because of the pain. Pt has been taking ibuprofen, last dose 1600 today. Vital Signs: Filed Vitals: 03/21/182000 BP: 128/90 Pulse: 92 Resp: 18 Temp: 97.6 ??F (36.4 ??C) TempSrc: Temporal SpO2: 98% Weight: 79.9 kg (176 lb 3.2 oz) Height: 5' 5 (1.651 m) Physical exam: A brief physical exam was completed to facilitate/expedite patient care. Mild soft tissue swelling to right lateral malleolus. 2+ pedal pulses. Plan: Necessary labs/imaging/medications ordered to initiate pt care. ANA Franklin 03/21/182004 Cosigned by Parminder Vasquez MD at 03/21/2018 10:40 PM PERSONNEL SECURITY ASSISTANT ONNEL SECURITY ASSISTANT ONNEL SECURITY ASSISTANT * Samaria Dill RN - 03/21/2018 8:03 PM CST PT TO ED FROM HOME AFTER FALLING DOWN A STAIR LAST NIGHT AND TWISTING RIGHT ANKLE. PT REPORTS PAIN WHEN BEARING WEIGHT AND RIGHT ANKLE SWOLLEN UPON TRIAGE. PT LAST TOOK IB PROFEN 1600. ONNEL SECURITY ASSISTANT documented in this encounter Plan of Treatment Not on file documented as of this encounter Procedures Procedure Name Priority Date/Time Associated Diagnosis Comments XR ANKLE RT 2V STAT 03/21/2018 9:04 PM PERSONNEL SECURITY ASSISTANT XR FOOT RT 3V STAT 03/21/2018 9:04 PM PERSONNEL SECURITY ASSISTANT POCT URINE (BACK OFFICE) STAT 03/21/2018 8:35 PM PERSONNEL SECURITY ASSISTANT documented in this encounter Results * XR ANKLE RT 2V (03/21/2018 9:04 PM PERSONNEL SECURITY ASSISTANT) Anatomical Region Laterality Modality Ankle Radiographic Rachael ging 03/21/2018 9:12 PM PERSONNEL SECURITY ASSISTANT Impressions 03/21/2018 9:15 PM PERSONNEL SECURITY ASSISTANT Impression: No acute osseous abnormality. Soft tissue swelling of the lateral right ankle. Narrative 03/21/2018 9:15 PM PERSONNEL SECURITY ASSISTANT Date: 03/21/2018 9:04 PM Exam: XR FOOT RT 3V, XR ANKLE RT 2V Comparison: Right foot radiography dated 12/13/2008. Technique: 3 views of the right foot. 2 views of the right ankle. History: Fell downstairs last night. Twisting right ankle injury. Pain with weightbearing. Swelling. Findings: The ankle mortise is intact without malleolar fracture. The talar dome appears normal without osteochondral lesion. The hindfoot appears intact without arthritis. The arch of the foot appears normal. The mid foot tarsals, metatarsals and phalanges are intact. There is no arthritis. There is soft tissue swelling of the lateral right ankle. Procedure Note Shamar Goins MD - 03/21/2018 Date: 03/21/2018 9:04 PM Exam: XR FOOT RT 3V, XR ANKLE RT 2V Comparison: Right foot radiography dated 12/13/2008. Technique: 3 views of the right foot. 2 views of the right ankle. History: Fell downstairs last night. Twisting right ankle injury. Painwith weightbearing. Swelling. Findings: The ankle mortise is intact without malleolar fracture. Thetalar dome appears normal without osteochondral lesion. The hindfoot appears intact without arthritis. The arch of the foot appears normal. The midfoot tarsals, metatarsals and phalanges are intact. There is no arthritis.There is soft tissue swelling of the lateral right ankle. Impression: No acute osseous abnormality. Soft tissue swelling of the lateral right ankle. Kimberlee De Leon SURVEY AND MAPPING TECHNICIAN-[facility] GENERAL IMAGING Final Res ult * XR FOOT RT 3V (03/21/2018 9:04 PM PERSONNEL SECURITY ASSISTANT) Anatomical Region Laterality Modality Foot Radiographic Rachael ging 03/21/2018 9:12 PM PERSONNEL SECURITY ASSISTANT Impressions 03/21/2018 9:15 PM PERSONNEL SECURITY ASSISTANT Impression: No acute osseous abnormality. Soft tissue swelling of the lateral right ankle. Narrative 03/21/2018 9:15 PM PERSONNEL SECURITY ASSISTANT Date: 03/21/2018 9:04 PM Exam: XR FOOT RT 3V, XR ANKLE RT 2V Comparison: Right foot radiography dated 12/13/2008. Technique: 3 views of the right foot. 2 views of the right ankle. History: Fell downstairs last night. Twisting right ankle injury. Pain with weightbearing. Swelling. Findings: The ankle mortise is intact without malleolar fracture. The talar dome appears normal without osteochondral lesion. The hindfoot appears intact without arthritis. The arch of the foot appears normal. The mid foot tarsals, metatarsals and phalanges are intact. There is no arthritis. There is soft tissue swelling of the lateral right ankle. Procedure Note Shamar Goins MD - 03/21/2018 Date: 03/21/2018 9:04 PM Exam: XR FOOT RT 3V, XR ANKLE RT 2V Comparison: Right foot radiography dated 12/13/2008. Technique: 3 views of the right foot. 2 views of the right ankle. History: Fell downstairs last night. Twisting right ankle injury. Painwith weightbearing. Swelling. Findings: The ankle mortise is intact without malleolar fracture. Thetalar dome appears normal without osteochondral lesion. The hindfoot appears intact without arthritis. The arch of the foot appears normal. The midfoot tarsals, metatarsals and phalanges are intact. There is no arthritis.There is soft tissue swelling of the lateral right ankle. Impression: No acute osseous abnormality. Soft tissue swelling of the lateral right ankle. [facility] Final Res ult * POCT urine (03/21/2018 8:35 PM PERSONNEL SECURITY ASSISTANT) URINE HCG TEST NEGATIVE NEGATIVE Internal Control performed as Expected? YES LOT#:[id number] EXP: 0 [facility]berle[facility] Covarrub[facility]- POINT OF CARE TEST ORDERA BLES Final Result documented in this encounter Visit Diagnoses Diagnosis Ankle sprain- Primary Sprain of ankle, unspecified site documented in this encounter Care Teams Waste Machine Tender Relationship Specialty Start Date End Date Kit Arriola MD [address] [address] PCP - General 12/01/15 07/13/20 documented as of this encounter
--- OUTSIDE RECORDS SUMMARY | 2024-02-17 13:39 | XMS_ITS | Encounter Summary ---
Author Organization [facility] Address [address] [facility] [place] [address] [place] [address] Care Team Providers Care Automobile Accessories Salesperson Name Role Phone Kit Arriola MD Primary Care Provider [phone] Kit Arriola MD Unavailable [phone] Reason for Referral * Imaging (Routine) - Closed Specialty Diagnoses / Procedures Referred By Contac t Referred To Contact RADIOLOGY Diagnoses Bilateral mastodynia Procedures US BREAST RT BIRAD LTD Ira Kovacs DO [address] [address] Phone: tel: fax: Referral ID Status Reason Start Date Expiration Date Visits Re quested Visits Authorized [id number] Closed 09/17/2020 03/16/2021 1 1 * Imaging - Closed Specialty Diagnoses / Procedures Referred By Contac t Referred To Contact RADIOLOGY Diagnoses Bilateral mastodynia Procedures US BREAST LT BIRAD LTD Ira Kovacs DO [address] [address] Phone: tel: fax: Referral ID Status Reason Start Date Expiration Date Visits Re quested Visits Authorized [id number] Closed 09/17/2020 03/16/2021 1 1 Encounter Details Date Type Department Care Team (Latest Contact Info) Description 09/17/2020 8:30 AM CDT - 09/17/2020 11:59 PM CDT Hospital Encounter [facility] [address] [place] [address] Ira Kovacs DO [address] [facility] [address] [place] [address] Discharge Disposition: Home or Self Care (Routine [...] have Coronavirus / COVID-19? No / Unsure 09/17/2020 9:11 AM CDT documented as of this encounter Medications at Time of Discharge letrozole 2.5 MG tablet Take 2.5 mg by mouth see administration instructions. Daily on days 3-8 0 9 10/05/19 21 ondansetron 4 MG disintegrating tablet Take 1 tablet (4 mg total) by mouth every 8 (eight) hours as needed. 20 tablet 9 10/05/19 21 documented as of this encounter Plan of Treatment Not on file documented as of this encounter Procedures Procedure Name Priority Date/Time Associated Diagnosis Comments US BREAST RT BIRAD LTD Routine 09/17/2020 11:22 AM CDT Bilateral mastodynia US BREAST LT BIRAD LTD Routine 09/17/2020 11:22 AM CDT Bilateral mastodynia MG DIAG W GHAZALA BILAT DIGI Routine 09/17/2020 10:01 AM CDT Bilateral mastodynia documented in this encounter Results * US BREAST RT [employer] (09/17/2020 11:22 AM CDT) Anatomical Region Laterality Modality Breast Right Ultrasound 09/17/2020 10:2 6 AM CDT Impressions 09/17/2020 11:15 AM CDT =====IMPRESSION:===== No mammographic findings suggestive of malignancy. Lack of correlate for palpable abnormality or nipple discharge should not delay biopsy or other further evaluation clinically indicated. Need for additional evaluation to be determined clinically. If clinically indicated, MRI of the breast could be considered. ASSESSMENT: ACR BI-RADS 2 - BENIGN FINDING(S) Recommendation: 1: Per clinical decision Bilateral COMMENTS: Referred By: IRA KOVACS Interpreted By: Osmin Garcia MD, 09/17/2020 10:26 AM Narrative 09/17/2020 11:15 AM CDT EXAMINATION: Digital bilateral diagnostic mammogram with 3-D tomography and bilateral breast ultrasound [id number], [id number] EXAM DATE/TIME: 09/17/2020 9:39 AM REASON FOR EXAM: ??PAIN IN BREAST ?previous bilateral bloody nipple discharge which changed to white liquid and subsequently has stopped. COMPARISON: 07/30/2020 TECHNIQUE: Digital diagnostic mammography of both breasts was performed in addition to 3-D Tomosynthesis technique. This study was read with the assistance of a computer-aided detection system. And bilateral breast ultrasounds TISSUE DENSITY: The breast tissue is heterogeneously dense, which may obscure small masses. FINDINGS: Multiple palpable lesions bilaterally reported by the patient. No correlate on mammogram is seen in these regions which are marked by radiopaque BBs. No correlate for history nipple discharge is seen on mammography.No suspicious masses, malignant appearing calcifications, skin thickening or other abnormalities are present. ??No significant change from the prior exam. Correlation with ultrasound shows abnormality to correlate with history of palpable lesions or nipple discharge. us Ira Kovacs DO ULTRASOUND Final Result * US BREAST LT [employer] (09/17/2020 11:22 AM CDT) Anatomical Region Laterality Modality Breast Left Ultrasound 09/17/2020 10:2 6 AM CDT Impressions 09/17/2020 11:15 AM CDT =====IMPRESSION:===== No mammographic findings suggestive of malignancy. Lack of correlate for palpable abnormality or nipple discharge should not delay biopsy or other further evaluation clinically indicated. Need for additional evaluation to be determined clinically. If clinically indicated, MRI of the breast could be considered. ASSESSMENT: ACR BI-RADS 2 - BENIGN FINDING(S) Recommendation: 1: Per clinical decision Bilateral COMMENTS: Referred By: IRA KOVACS Interpreted By: Osmin Garcia MD, 09/17/2020 10:26 AM Narrative 09/17/2020 11:15 AM CDT EXAMINATION: Digital bilateral diagnostic mammogram with 3-D tomography and bilateral breast ultrasound [id number], [id number] EXAM DATE/TIME: 09/17/2020 9:39 AM REASON FOR EXAM: ??PAIN IN BREAST ?previous bilateral bloody nipple discharge which changed to white liquid and subsequently has stopped. COMPARISON: 07/30/2020 TECHNIQUE: Digital diagnostic mammography of both breasts was performed in addition to 3-D Tomosynthesis technique. This study was read with the assistance of a computer-aided detection system. And bilateral breast ultrasounds TISSUE DENSITY: The breast tissue is heterogeneously dense, which may obscure small masses. FINDINGS: Multiple palpable lesions bilaterally reported by the patient. No correlate on mammogram is seen in these regions which are marked by radiopaque BBs. No correlate for history nipple discharge is seen on mammography.No suspicious masses, malignant appearing calcifications, skin thickening or other abnormalities are present. ??No significant change from the prior exam. Correlation with ultrasound shows abnormality to correlate with history of palpable lesions or nipple discharge. us Ira Kovacs DO ULTRASOUND Final Result documented in this encounter Visit Diagnoses Diagnosis Bilateral mastodynia documented in this encounter Care Teams Automobile Accessories Salesperson Relationship Specialty Start Date End Date Kit Arriola MD [address] [address] PCP - General FAMILY PRACTICE 07/14/20 Kit Arriola MD [address] [address] 07/14/20 documented as of this encounter
--- OUTSIDE RECORDS SUMMARY | 2024-02-17 13:39 | XMS_ITS | Encounter Summary ---
Author Organization [facility] Address [address] [facility] [place] [address] [place] [address] Care Team Providers Care Armed Custom Protection Officer Name Role Phone Kit Arriola MD Primary Care Provider [phone] Encounter Details Date Type Department Care Team (Latest Contact Info) Description 08/14/2018 12:22 PM CDT - 08/14/2018 11:59 PM CDT Hospital Encounter [facility] [address] [place], [place] [id number] Pascual Soriano MD [facility] [place], [place] [id number] Discharge Disposition: Home or Self Care (Routine [...] on file documented as of this encounter Medications at Time of Discharge butalbital-acetamino phen-caffeine 50-300-40 MG capsule Take 1 capsule by mouth every 4 (four) hours as needed for Pain. 15 capsule 03/10/2018 9 ondansetron 4 MG disintegrating tablet Take 1 tablet (4 mg total) by mouth every 8 (eight) hours as needed for Nausea. 20 tablet 06/21/2018 9 documented as of this encounter Plan of Treatment Not on file documented as of this encounter Procedures Procedure Name Priority Date/Time Associated Diagnosis Comments HCG QUANT (SERUM)-CHORIONIC GONADOTROPIN Routine 08/14/2018 12:33 PM CDT Female infertility, unspecified documented in this encounter Results * HCG QUANT (SERUM)-CHORIONIC GONADOTROPIN (08/14/2018 12:33 PM CDT) HCG QUANTITATIVE <1 MIU/ML 08/15/19 19 2:05 PM CDT [facility] Comment: WEEKS OF ? REFERENCE RANGES [...] 2 - 3 MONTHS ?10,000 - 100,000 08/14/2018 12:3 3 PM CDT us Pascual Soriano MD LABORATORY Final Result [facility] [address] [place] [address], documented in this encounter Visit Diagnoses Diagnosis Female infertility, unspecified documented in this encounter Care Teams Armed Custom Protection Officer Relationship Specialty Start Date End Date Kit Arriola MD [address] [address] PCP - General 12/01/15 07/13/20 documented as of this encounter
--- OUTSIDE RECORDS SUMMARY | 2024-02-17 13:39 | XMS_ITS | Encounter Summary ---
Author Organization [facility] Address [address] [place] [address] [place] [address] Care Team Providers Care Cash Checker Name Role Phone Kit Arriola MD Primary Care Provider [phone] Kit Arriola MD Unavailable [phone] Encounter Details Date Type Department Care Team (Latest Contact Info) Description 10/04/2020 Travel Social History Tobacco Use Types Packs/Day [...] have Coronavirus / COVID-19? No / Unsure 10/04/2020 8:07 AM CDT documented as of this encounter Plan of Treatment Not on file documented as of this encounter Visit Diagnoses Not on filedocumented in this encounter Care Teams Cash Checker Relationship Specialty Start Date End Date Kit Arriola MD [address] [address] PCP - General FAMILY PRACTICE 07/14/20 Kit Arriola MD [address] [address] 07/14/20 documented as of this encounter
--- OUTSIDE RECORDS SUMMARY | 2024-02-17 13:39 | XMS_ITS | Encounter Summary ---
Author Organization [facility] Address [facility]. [place], [place] [address] [place] [address] Care Team Providers Care Permit Review Assistant Name Role Phone Radha Arriola MD Primary Care Provider Reason for Visit * Reason Comments Hypoglycemia Encounter Details Date Type Department Care Team (Late st Contact Info) Description 05/31/2018 9:36 AM CDT - 05/31/2018 11:15 AM CDT Emergency [facility] [place] [address] Carlie Pierson, CRESENCIO [address] [address] Hypoglycemia Discharge Disposition: Home or Self Care (Routine [...] Sign Reading Time Taken Comments Blood Pressure 119/77 05/31/2018 11:02 AM CDT Pulse 77 05/31/2018 11:02 AM CDT Temperature 37 ??C (98.6 ??F) 05/31/2018 8:22 AM CDT Respiratory Rate 18 05/31/2018 11:0 2 AM CDT Oxygen Saturation 99% 05/31/2018 11: 02 AM CDT Inhaled Oxygen Concentration - - Weight 75.2 kg (165 lb 12.8 oz) 05/31/2018 8:22 AM CDT Height 165.1 cm (5' 5 ) 05/31/2018 8:22 AM CDT Body Mass Index 27.59 05/31/2018 8:22 AM CDT documented in this encounter Discharge Instructions * Discharge Instructions* CRESENCIO Argueta - 05/31/2018 11:12 AM CDT Thank you for giving us the opportunity to care for you today. If at any point you are becoming more ill, please call your doctor or return here. You are always welcome back. If you have any questions about this visit, concerns about your symptoms, questions about your medications or other concerns, please give us a call... - JUN Maxwell PA-C - Emergency Medicine Provider ADDITIONAL DISCHARGE INSTRUCTIONS: --Please follow all the instructions that we have discussed or are provided here. Take all medications as directed. --While the tests and exam we have performed in the Emergency Department did not show anything dangerous or life threatening it is important for you to follow up with your doctor for further evaluation of your symptoms. It is also important to return to the ED if your symptoms become worse or you have new or further concerns. -- Please mention to your follow-up physician that you were in the emergency department and requestthat they review your labs and/or imaging to ensure all findings are followed up on. --Again, it was a pleasure taking care of you. * Attachments The following attachments cannot be sent through Care Everywhere. * Low Blood Sugar in People Without Diabetes ([place]o) documented in this encounter Medications at Time of Discharge butalbital-acetam inophen-caffeine 50-300-40 MG capsule Take 1 capsule by mouth every 4 (four) hours as needed for Pain. 15 capsule 03/10/2018 12/19/2018 documented as of this encounter ED Notes * CRESENCIO Argueta - 05/31/2018 10:13 AM CDT [place], [place] EMERGENCY DEPARTMENT ENCOUNTER HISTORICAL INFORMATION Primary Care Doctor: RADHA ARRIOLA MD Patient information was obtained primarily from the patient, nursing notes. History/Exam limitations: None Provider at Bedside Date/Time Event User Comments 05/31/18 0890 Provider at Bedside Assessing Patient CARLIE PIERSON CHIEF COMPLAINT Hypoglycemia Chief Complaint Patient presents with ??? Hypoglycemia HPI Roxana Amos is a 28-year-old female who presents due to concern for hypoglycemia. Patient reports that she was feeling dizzy at work this morning. States she starts work at 3 AM. Notes over the past 3 weeks she has been on overtime hours working up to 60 or more hours each week. She reports that she did have breakfast, pancakes, this morning before going to work And states she does not generally skip meals. She states that when her blood sugar was checked at work it was found to be 68.She was given orange juice and a candy bar at that time. Notes hx of PCOS and was previously on metformin, but was instructed to stop taking it 1 month ago due to nausea. PAST MEDICAL HISTORY Past Medical History: Diagnosis Date ??? Ectopic ??? Kidney stones ??? PCOS (polycystic ovarian syndrome) on Metformin SURGICAL HISTORY Past Surgical History: Procedure Laterality Date ??? CHOLECYSTECTOMY CURRENT MEDICATIONS No current facility-administered medications for this encounter. Current Outpatient Medications: ??? zowubuyfbp-dizjvcarymfck-mzaqenlk 50-300-40 MG capsule, Take 1 capsule by mouth every 4 (four) hours as needed for Pain., Disp: 15 capsule, Rfl: 0 ALLERGIES Allergies Allergen Reactions ??? Latex Hives ??? Morphine Hives and Itching FAMILY HISTORY Family History Problem Relation Name Age of Onset ??? Stroke Father SOCIAL HISTORY Social History Socioeconomic History ??? Marital status: Single Spouse name: Not on file ??? Number of children: Not on file ??? Years of education: Not on file ??? Highest education level: Not on file Occupational History ??? Not on file Social Needs ??? Financial resource strain: Not on file ??? Food insecurity: Worry: Not on file Inability: Not on file ??? Transportation needs: Medical: Not on file Non-medical: Not on file Tobacco Use ??? Smoking status: Never Smoker ??? Smokeless tobacco: Never Used Substance and Sexual Activity ??? Alcohol use: No Comment: rare use ??? Drug use: No ??? Sexual activity: Yes control/protection: None Lifestyle ??? Physical activity: Days per week: Not on file Minutes per session: Not on file ??? Stress: Not on file Relationships ??? Social connections: Talks on phone: Not on file Gets together: Not on file Attends mormon service: Not on file Active member of club or organization: Not on file Attends meetings of clubs or organizations: Not on file Relationship status: Not on file ??? Intimate partner violence: Fear of current or ex partner: Not on file Emotionally abused: Not on file Physically abused: Not on file Forced sexual activity: Not on file Other Topics Concern ??? Not on file Social History Narrative ??? Not on file REVIEW OF SYSTEMS Constitutional: +See HPI. Denies fever, chills, weight loss or weakness. Skin: Denies rash. HEENT: Denies sore throat or ear pain. Respiratory: Denies cough or shortness of breath. Cardiovascular: Denies chest pain, palpitations or swelling. GI: Denies abdominal pain, nausea, vomiting, or diarrhea. : Denies dysuria, urinary frequency. Musculoskeletal: Denies back pain. Neurologic: Denies headache, focal weakness or sensory changes. Psychiatric: Denies depression, suicidal ideation or homicidal ideation. See HPI for further details. All systems negative except as marked. Physical Exam VITAL SIGNS: Filed Vitals: 05/31/18 0822 05/31/18 1102 BP: 114/80 119/77 Pulse: 87 77 Resp: 18 18 Temp: 98.6 ??F (37 ??C) TempSrc: Oral SpO2: 99% 99% Weight: 75.2 kg (165 lb 12.8 oz) Height: 5' 5 (1.651 m) Constitutional: Well developed, No acute distress, Non-toxic appearance. Integument: Warm, Dry, No erythema, No rash. HEENT: Normocephalic, Atraumatic, Conjunctiva normal Neck- Normal range of motion, Supple Back- Normal range of motion, No gross abnormality Respiratory: Normal breath sounds, No respiratory distress. Cardiovascular: Normal heart rate, Normal rhythm Musculoskeletal: Good ROM, no deformities noted Neurologic: Alert & oriented x 3, No focal deficits noted. Psychiatric: Affect normal, Judgment normal, Mood normal. EKG (interpreted by ED provider) No results found for this visit on 05/31/18. LABORATORY Labs Reviewed CBC W/DIFF AUTOMATED - Abnormal; Notable for the following components: Result Value WBC 11.6 (*) HCT 37.7 (*) ABS. NEUTROPHILS TOTAL 8.04 (*) All other components within normal limits COMPREHENSIVE METABOLIC PANEL - Abnormal; Notable for the following components: CHLORIDE 109 (*) AST 11 (*) ANION GAP 6.7 (*) A/G RATIO 0.9 (*) All other components within normal limits POCT GLUCOSE - EDMOND DOCKED DEVICE - Abnormal; Notable for the following components: WHOLE BLOOD GLUCOSE 102 (*) All other components within normal limits POCT GLUCOSE - EDMOND DOCKED DEVICE - Abnormal; Notable for the following components: GLUCOSE POC 102 (*) All other components within normal limits POCT GLUCOSE - EDMOND DOCKED DEVICE - Normal POCT GLUCOSE - EDMOND DOCKED DEVICE RADIOLOGY No orders to display PROCEDURES Procedures MDM ED Course as of Jun 01 1111SunMay 31, 2018 1040 Labs grossly unremarkable. Glucose through CMP at 84. This was prior to patient being given food and drink in the ER. We will plan to recheck glucose in approximately 20 to 30 minutes. Suspect possibility of hypoglycemia due to patient working access over the past several weeks and increased caloric needs. Patient does also have known history of PCOS contributing to risk of endocrine abnormalities. She states that she has been hypoglycemic in the past once. We will plan to recheck glucose and if still within normal limits will plan to DC home. Patient states she will not return to work today and will be able to rest and continue p.o. intake at home. [HS] 1111 Glucose, 102. Pt notes improvement of her symptoms. Will dc home. Advised to continued normal meals/snacks/hydration. Discussed follow up with PMD. [HS] ED Course User Index [HS] CRESENCIO Argueta I have discussed today's findings with the patient and provided information regarding the likely diagnosis. The patient has been given information regarding their treatment, follow up and concerning symptoms for which they should seek urgent or emergent attention. I have expressed the the importance of seeking attention should there be any new, or worsening symptoms or persistence of their condition. The patient is stable at discharge and has verbalized understanding of these instructions. Impression/Disposition SNOMED CT(R) 1. Hypoglycemia HYPOGLYCEMIA Disposition: Discharge Medication List ASK your doctor about these medications okpejpbmnu-pgqprniliyigt-ylvairnp 50-300-40 MG capsule Commonly known as: FIORICET Take 1 capsule by mouth every 4 (four) hours as needed for Pain. CRESENCIO ARGUETA PA 05/31/18 1113 Cosigned by Pilar Hook MD at 06/01/2018 8:16 AM CDT * Mindi Mcdaniel RN - 05/31/2018 10:00 AM CDT PT PROVIDED WITH FOOD TRAY WILL CHECK BS IN ONE HOUR Mindi Mcdaniel RN * Gregg Soto RN - 05/31/2018 8:27 AM CDT Patient arrived to ed with c/o of low blood sugar. Patient denies any hx of diabetes but states family members are diabetic. Patient reports feeling dizzy, lightheaded for one day and she checked blood sugar at work with results of 68. Patient was given and orange juice and a candy bar. Blood sugarrechecked with results of 70. Blood sugar in triage is 88. Patient reports cough, chills, denies fevers, nausea or vomiting. No urinary symptoms. documented in this encounter Plan of Treatment Not on file documented as of this encounter Procedures Procedure Name Priority Date/Time Associated Diagnosis Comments POCT GLUCOSE - EDMOND DOCKED DEVICE STAT 05/31/2018 11:03 AM CDT POCT GLUCOSE - EDMOND DOCKED DEVICE Routine 05/31/2018 11:02 AM CDT COMPREHENSIVE METABOLIC PANEL STAT 05/31/2018 9:53 AM CDT CBC W/DIFF AUTOMATED STAT 05/31/2018 9:53 AM CDT POCT GLUCOSE - EDMOND DOCKED DEVICE STAT 05/31/2018 8:24 AM CDT POCT GLUCOSE - EDMOND DOCKED DEVICE Routine 05/31/2018 8:21 AM CDT documented in this encounter Results * (ABNORMAL) POCT glucose (05/31/2018 11:03 AM CDT) [facility] Signature GLUCOSE WHOLE BLOOD 102(A) 70 - 100 mg/dL [facility] Carlie DUPONT POCT ORDERABLES - DEVICE Fi nal Result Performing Organization Address City/[facility]/ZIP Co de Phone Number [facility] [address] [place] [address], [place] [phone] * (ABNORMAL) POCT glucose (05/31/2018 11:02 AM CDT) [facility] Signature GLUCOSE POC 102(H) 70 - 99 mg/dL 05/31/2018 11:05 AM CDT [facility] ORDERS INTERFACE 05/31/2018 11:0 2 AM CDT Carlie DUPONT POCT ORDERABLES - DEVICE Fi nal Result [facility] ORDERS INTERFACE US * (ABNORMAL) COMPREHENSIVE METABOLIC PANEL (05/31/2018 9:53 AM CDT) GLUCOSE 84 70 - 99 MG/DL 05/31/2018 10:29 AM [facility] BUN 8 7 - 18 MG/DL 05/31/2018 10:29 AM [facility] CREATININE S/P/B 0.77 0.55 - 1.02 MG/DL 05/31/2018 10:29 AM [facility] SODIUM S/P/B 140 136 - 145 MMOL/L 05/31/2018 10:29 AM [facility] POTASSIUM S/P/B 3.9 3.5 - 5.1 MMOL/L 05/31/2018 10:29 AM [facility] CHLORIDE S/P/B 109(H) 100 - 108 MMOL/L 05/31/2018 10:29 AM [facility] CO2 28.2 21 - 32 MMOL/L 05/31/2018 10:29 AM [facility] CALCIUM S/P/B 9.1 8.5 - 10.1 MG/DL 05/31/2018 10:29 AM [facility] BILIRUBIN TOTAL S/P/B 0.4 0.2 - 1.2 MG/DL 05/31/2018 10:29 AM [facility] TOTAL PROTEIN S/P/B 7.2 6.4 - 8.2 G/DL 05/31/2018 10:29 AM [facility] ALBUMIN S/P/B 3.5 3.4 - 5.0 G/DL 05/31/2018 10:29 AM [facility] AST 11(L) 15 - 37 U/L 05/31/2018 10:29 AM [facility] ALT 20 14 - 55 U/L 05/31/2018 10:29 AM [facility] ALKALINE PHOSPHATASE S/P/B 80 50 - 136 U/L 05/31/2018 10:29 AM CDT [facility] ANION GAP 6.7(L) 8 - 20 MMOL/L 05/31/2018 10:29 AM CDT [facility] BUN CREATININE RATIO 10.3 6 - 05/31/2018 10:29 AM CDT [facility] A/G RATIO 0.9(L) 1.0 - 2.0 RATIO 05/31/2018 10:29 AM CDT [facility] EGFR NON-AFR. AMER. >90 >90 ML/MIN/1.7 3 M2 05/31/2018 10:29 AM CDT [facility] EGFR AFR. AMER. >90 >90 ML/MIN/1.7 3 M2 05/31/2018 10:29 AM CDT [facility] Comment: NOTE: eGFR is not calculated for patients <18 years of age. This is an estimated GFR (CKD EPI) and should not be used for calculating drug doses. 05/31/2018 9:53 AM CDT Carlie DUPONT LABORATORY Final Resul t [facility] [address] [place] [address], [place] [phone] * (ABNORMAL) CBC W/DIFF AUTOMATED (05/31/2018 9:53 AM CDT) WBC 11.6(H) 4.5 - 11.0 x10'3/uL 05/31/2018 10:07 AM CDT [facility] RBC 4.28 4.20 - 5.40 x10'6/uL 05/31/2018 10:07 AM CDT [facility] HGB 12.4 12.0 - 16.0 G/DL 05/31/2018 10:07 AM CDT [facility] HCT 37.7(L) 38.0 - 48.0 % 05/31/2018 10:07 AM CDT [facility] MCV 88.1 80.0 - 94.0 FL 05/31/2018 10:07 AM CDT [facility] MCH 29.0 27.0 - 31.0 PG 05/31/2018 10:07 AM CDT [facility] MCHC 32.9 32.0 - 36.0 G/DL 05/31/2018 10:07 AM CDT [facility] RDW 13.2 11.5 - 14.5 % 05/31/2018 10:07 AM CDT [facility] PLT 333 130 - 400 x10'3/uL 05/31/2018 10:07 AM T [facility] MPV 9.9 9.3 - 12.2 FL 05/31/2018 10:07 AM T [facility] DIFFERENTIAL TYPE AUTOMATED DIFFERENTIAL 05/31/2018 10:07 AM CDT [facility] NEUTROPHILS % 69.4 % 05/31/2018 10:07 AM T [facility] LYMPHOCYTES % 22.1 % 05/31/2018 10:07 AM T [facility] MONOCYTES % 6.0 % 05/31/2018 10:07 AM T [facility] EOSINOPHILS 1.4 % 05/31/2018 10:07 AM T [facility] BASOPHILS 0.6 % 05/31/2018 10:07 AM CDT [facility] IMMATURE GRANS % 0.5 % 06/01/19 19 10:07 AM T [facility] ABS. NEUTROPHILS TOTAL 8.04(H) 1.80 - 7.70 x10'3/uL 05/31/2018 10:07 AM CDT [facility] ABS. LYMPHOCYTES 2.56 1.00 - 4.80 x10'3/uL 05/31/2018 10:07 AM CDT [facility] ABS. MONOCYTES 0.70 0.24 - 0.86 x10'3/uL 05/31/2018 10:07 AM CDT [facility] ABS. EOSINOPHILS 0.16 0.04 - 0.36 x10'3/uL 05/31/2018 10:07 AM CDT [facility] ABS. BASOPHILS 0.07 0.01 - 0.08 x10'3/uL 05/31/2018 10:07 AM CDT [facility] ABS. IMMATURE GRANULOCYTES 0.06 0.00 - 0.49 x10'3/uL 05/31/2018 10:07 AM CDT [facility] 05/31/2018 9:53 AM CDT Carlie DUPONT [place] [address], * POCT glucose (05/31/2018 8:24 AM CDT) GLUCOSE WHOLE BLOOD 88 70 - 100 mg/dL [facility] Carlie DUPONT POCT ORDERABLES - [place] [address], [place] [phone] * POCT glucose (05/31/2018 8:21 AM CDT) GLUCOSE POC 88 70 - 99 mg/dL 05/31/2018 8:35 AM CDT [facility] ORDERS INTERFACE 05/31/2018 8:21 AM CDT us Attending Physician Emergency MD POCT ORDERABLES - DEVICE Final Result [facility] ORDERS INTERFACE US documented in this encounter Visit Diagnoses Diagnosis Hypoglycemia- Primary Hypoglycemia, unspecified documented in this encounter Care Teams Permit Review Assistant Relationship Specialty Start Date End Date Radha Arriola MD [address] [address] PCP - General 12/01/15 07/13/20 documented as of this encounter
--- OUTSIDE RECORDS SUMMARY | 2024-02-17 13:39 | XMS_ITS | Encounter Summary ---
Author Organization [facility] Address [address] [facility]. [place], [place] [address] [place] [address] Care Team Providers Care Motor Builder Assembler Name Role Phone Kit Arriola MD Primary Care Provider [phone] Encounter Details Date Type Department Care Team ([facility] st Contact Info) Description 11/29/2017 SAP CRM DEVELOPER ONLY [facility] [place] [address] [place] [phone] Scanned, Documents Social History Tobacco Use Types Packs/Day Years [...] on filedocumented in this encounter Care Teams Motor Builder Assembler Relationship Specialty Start Date End Date Kit Arriola MD [address] [address] PCP - General 12/01/15 07/13/20 documented as of this encounter
--- OUTSIDE RECORDS SUMMARY | 2024-02-17 13:39 | XMS_ITS | Encounter Summary ---
Author Organization [facility] Address [address] [place] [address] [place] [address] Care Team Providers Care Movie Editor Name Role Phone Kit Arriola MD Primary Care Provider [phone] Encounter Details Date Type Department Care Team (Late st Contact Info) Description 08/14/2018 Orders Only [facility] [place], [place] [id number] Pascual Soriano MD [address] [place], [place] [id number] Social History Tobacco Use Types Packs/Day Years [...] on file documented as of this encounter Results * HCG QUANT (SERUM)-CHORIONIC GONADOTROPIN (08/14/2018 12:33 PM CDT) HCG QUANTITATIVE <1 MIU/ML 08/15/19 19 2:05 PM CDT [facility] Comment: WEEKS OF ? REFERENCE RANGES [...] us Pascual Soriano MD LABORATORY Final Result [facility] [address] [place] [address], documented in this encounter Visit Diagnoses Diagnosis Female infertility, unspecified- Primary documented in this encounter Care Teams Movie Editor Relationship Specialty Start Date End Date Kit Arriola MD [address] [address] PCP - General 12/01/15 07/13/20 documented as of this encounter
--- OUTSIDE RECORDS SUMMARY | 2024-02-17 13:39 | XMS_ITS | Encounter Summary ---
Author Organization [facility] Address [address] 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 Name Role Phone Kit Arriola MD Primary Care Provider [phone] Reason for Visit * Reason Comments Vaginal Bleeding Encounter Details Date Type Department Care Team (Late st Contact Info) Description 11/27/2018 7:20 PM CDT - 11/27/2018 9:52 PM CDT Emergency [facility] [place] [address] Saul Vicente MD [address] [address] Vaginal Bleeding Discharge Disposition: Home or Self Care (Routine Discharge) Social History Tobacco Use Types Packs/Day Years Used Date Smoking Tobacco: Never Smokeless Tobacco: Never Alcohol Use Standard Drinks/Week Comments No 0 (1 standard drink = 0.6 oz pur e alcohol) rare use Comments Unknown Sex and Gender Information Value Date Recorded Sex Assigned at Not on file Legal Sex Female 8:13 PM CDT Gender Identity Not on file Sexual Orientation Not on file documented as of this encounter Last Filed Vital Signs Vital Sign Reading Time Taken Comments Blood Pressure 127/70 11/27/2018 9:35 PM CDT Pulse 66 11/27/2018 9:35 PM CDT Temperature 36.9 ??C (98.5 ??F) 11/27/2018 7:14 PM CD T Respiratory Rate 16 11/27/2018 9:35 PM CDT Oxygen Saturation 98% 11/27/2018 9:35 PM CDT Inhaled Oxygen Concentration - - Weight 69.4 kg (153 lb) 11/27/2018 7:14 PM CDT Height 165.1 cm (5' 5 ) 11/27/2018 7:14 PM CDT Body Mass Index 25.46 11/27/2018 7:14 PM CDT documented in this encounter Discharge Instructions * Discharge Instructions* Saul Vicente MD - 11/27/2018 9:39 PM CDT Please do not hesitate to return to the emergency department for any increase of your symptoms, forany new pains or fevers, or for any other concerns about your health. Take the medications providedfor pain if you need them. Do not drive or drink while taking these medications. documented in this encounter Medications at Time of Discharge butalbital-acetamino phen-caffeine 50-300-40 MG capsule Take 1 capsule by mouth every 4 (four) hours as needed for Pain. 15 capsule 03/10/2018 9 hydrocodone-acetamin ophen 5-325 MG tabletIndications:Ac kalyan Pain < 3 Day Supply Take 1 tablet by mouth every 6 (six) hours as needed. Indications: Acute Pain < 3 Day Supply 10 tablet 11/27/2018 9 ibuprofen 600 MG tablet Take 1 tablet (600 mg total) by mouth every 6 (six) hours as needed. 20 tablet 09/06/2018 9 ondansetron 4 MG disintegrating tablet Take 1 tablet (4 mg total) by mouth every 8 (eight) hours as needed for Nausea. 20 tablet 06/21/2018 9 documented as of this encounter ED Notes * Saul Vicente MD - 11/27/2018 9:52 PM CDT Emergency Department Note Chief Complaint Chief Complaint Patient presents with ??? Vaginal Bleeding Blood pressure 127/70, pulse 66, temperature 98.5 ??F (36.9 ??C), resp. rate 16, height 5' 5 (1.651 m), weight 69.4 kg (152 lb 16 oz), SpO2 98 %. History of Present Illness 28-year-old woman, G4, P1 at less than 8 weeks gestation presents with vaginal bleeding. The patient states that her last. Was approximately 7 weeks ago. Since that time, she has had 2+ home test. She presents today with vaginal bleeding that started last night. She reports that she woke from sleep in a pool of blood . She also reports cramping in her abdomen, low back, and proximal bilateral legs. She reports a prior history of ectopic , as well as one prior miscarriage. She contacted her retail pharmacy technician and was instructed to come to the emergency department for further evaluation and management. She has no more pain at this time, but does report that she is continuing to ooze blood. Medical History ALLERGIES: Allergies Allergen Reactions ??? Latex Hives ??? Morphine Hives and Itching MEDICATIONS: Prior to Admission medications Medication Sig Start Date End Date Taking? Authorizing Provider hydrocodone-acetaminophen 5-325 MG tablet Take 1 tablet by mouth every 6 (six) hours as needed. Indications: Acute Pain < 3 Day Supply 11/27/18 Yes Saul Vicente MD zryxvytmjl-odhrldqlqonrm-dfomjxis 50-300-40 MG capsule Take 1 capsule by mouth every 4 (four) hoursas needed for Pain. 03/10/18 ANA Gee ibuprofen 600 MG tablet Take 1 tablet (600 mg total) by mouth every 6 (six) hours as needed. 09/06/18Shamar Linton MD ondansetron 4 MG disintegrating tablet Take 1 tablet (4 mg total) by mouth every 8 (eight) hours asneeded for Nausea. 06/21/18 Rayray Cortes MD PAST MEDICAL HISTORY: Past Medical History: Diagnosis Date ??? Ectopic ??? Kidney stones ??? PCOS (polycystic ovarian syndrome) on Metformin PAST SURGICAL HISTORY: Past Surgical History: Procedure Laterality Date ??? CHOLECYSTECTOMY ??? ECTOPIC FAMILY HISTORY: Family History Problem Relation Name Age of Onset ??? Stroke Father SOCIAL HISTORY: Social History Tobacco Use ??? Smoking status: Never Smoker ??? Smokeless tobacco: Never Used Substance Use Topics ??? Alcohol use: No Comment: rare use ??? Drug use: No Review of Systems Review of Systems Constitutional: Negative. Negative for chills, diaphoresis, fatigue and fever. Respiratory: Negative. Negative for cough, shortness of breath and wheezing. Cardiovascular: Negative. Negative for chest pain. Gastrointestinal: Negative for abdominal pain, diarrhea, nausea and vomiting. Genitourinary: Positive for vaginal bleeding. Musculoskeletal: Negative. Skin: Negative. Negative for rash and wound. Neurological: Negative. Psychiatric/Behavioral: Negative. All other systems reviewed and are negative. Physical Exam Filed Vitals: 11/27/18 1914 11/27/18 2135 BP: 127/77 127/70 Pulse: 110 66 Resp: 18 16 Temp: 98.5 ??F (36.9 ??C) SpO2: 99% 98% Weight: 69.4 kg (152 lb 16 oz) Height: 5' 5 (1.651 m) Physical Exam Constitutional: She is oriented to person, place, and time. She appears well- developed and well-nourished. No distress. HENT: Head: Normocephalic and atraumatic. Eyes: Pupils are equal, round, and reactive to light. Neck: Normal range of motion. Neck supple. Cardiovascular: Normal rate, regular rhythm, normal heart sounds and intact distal pulses. Exam reveals no gallop and no friction rub. No murmur heard. Pulmonary/Chest: Effort normal and breath sounds normal. No respiratory distress. She has no wheezes. She has no rales. She exhibits no tenderness. Abdominal: Soft. Bowel sounds are normal. She exhibits no distension and no mass. There is no tenderness. There is no rebound and no guarding. Genitourinary: Genitourinary Comments: Cervical os is closed. Moderate amount of dark vaginal blood in the vault. No adnexal masses or tenderness. No cervical motion tenderness. Musculoskeletal: Normal range of motion. She exhibits no edema, tenderness or deformity. Neurological: She is alert and oriented to person, place, and time. No cranial nerve deficit. Coordination normal. Skin: Skin is warm and dry. No rash noted. She is not diaphoretic. No erythema. No pallor. Psychiatric: She has a normal mood and affect. Her behavior is normal. Nursing note and vitals reviewed. Diagnostic Studies / Procedures ELECTROCARDIOGRAMS: No results found for this visit on 11/27/18. LABORATORY STUDIES: Results for orders placed or performed during the hospital encounter of 11/27/18 CBC W/DIFF AUTOMATED Result Value Ref Range WBC 9.7 4.5 - 11.0 x10'3/uL RBC 4.45 4.20 - 5.40 x10'6/uL HGB 13.0 12.0 - 16.0 G/DL HCT 40.5 38.0 - 48.0 % MCV 91.0 81.0 - 99.0 FL MCH 29.2 27.0 - 31.0 PG MCHC 32.1 32.0 - 36.0 G/DL RDW 13.3 11.5 - 14.5 % PLT 332 130 - 400 x10'3/uL MPV 9.6 9.3 - 12.2 FL DIFFERENTIAL TYPE AUTOMATED DIFFERENTIAL NEUTROPHILS 65.7 % LYMPHOCYTES 23.7 % MONOCYTES 8.4 % EOSINOPHILS 1.2 % BASOPHILS 0.6 % IMMATURE GRANS 0.4 % ABS. NEUTROPHILS TOTAL 6.34 1.80 - 7.70 x10'3/uL ABS. LYMPHOCYTES 2.29 1.00 - 4.80 x10'3/uL ABS. MONOCYTES 0.81 0.24 - 0.86 x10'3/uL ABS. EOSINOPHILS 0.12 0.04 - 0.36 x10'3/uL ABS. BASOPHILS 0.06 0.01 - 0.08 x10'3/uL ABS. IMMATURE GRANULOCYTES 0.04 0.00 - 0.49 x10'3/uL COMPREHENSIVE METABOLIC PANEL Result Value Ref Range GLUCOSE 84 70 - 99 MG/DL BUN 15 7 - 18 MG/DL CREATININE 0.82 0.55 - 1.02 MG/DL SODIUM 140 136 - 145 MMOL/L POTASSIUM 3.9 3.5 - 5.1 MMOL/L CHLORIDE 109 (H) 100 - 108 MMOL/L CO2 27.4 21 - 32 MMOL/L CALCIUM 8.9 8.5 - 10.1 MG/DL TOTAL BILIRUBIN 0.3 0.2 - 1.2 MG/DL TOTAL PROTEIN 7.2 6.4 - 8.2 G/DL ALBUMIN 3.8 3.4 - 5.0 G/DL AST 14 (L) 15 - 37 U/L ALT 21 14 - 55 U/L ALK PHOS 70 50 - 136 U/L ANION GAP 3.6 (L) 5 - 15 MMOL/L BUN CREATININE RATIO 18.2 6 - 26 A/G RATIO 1.1 1.0 - 2.0 RATIO eGFR Non-Afr. Amer. >90 >90 ML/MIN/1.73 M2 eGFR Afr. Amer. >90 >90 ML/MIN/1.73 M2 Quantitative HCG Result Value Ref Range HCG, QUANTITATIVE <1 MIU/ML URINALYSIS Result Value Ref Range Specimen Type URINE CLEAN CATCH COLOR YELLOW TRANSPARENCY CLEAR Specific Barre (U) 1.023 1.001 - 1.030 U PH 6.0 5.0 - 9.0 LEUKOCYTE ESTERASE TRACE (A) NEGATIVE NITRITES NEGATIVE NEGATIVE PROTEIN, URINE NEGATIVE <30 MG/DL URINE GLUCOSE NEGATIVE NEGATIVE MG/DL U KETONES NEGATIVE NEGATIVE MG/DL UROBILINOGEN NEGATIVE NEGATIVE MG/DL Urine Bilirubin NEGATIVE NEGATIVE MG/DL BLOOD LARGE (A) NEGATIVE CULTURE & SENSITIVITY INDICATED? SPECIMEN SETUP FOR CULTURE SQUAMOUS EPITHELIALS MANY /LPF MUCUS RARE /LPF WBC/HPF 1 <6 /HPF RBC/HPF 1 <6 /HPF BLOOD TYPING, ABO AND RH Result Value Ref Range ABO/RH A POSITIVE IMAGING STUDIES No orders to display ED Course / Medical Decision Making Pulse oximetry interpreted by me: 98% on room air. Impression normal Rhythm strip interpreted by me: Normal sinus rhythm. Rate 66. No other noted arrhythmias or ectopy Assessment: 28 year old woman presents with vaginal bleeding Diff Dx: High probability completed miscarriage; moderate probability of threatened miscarriage, ectopic ; Low probability intra-abdominal catastrophe Plan: 1. Labs 2. Vaginal exam 3. Patient with quantitative hCG level undetectable. I believe she most likely has completed a miscarriage. Her vaginal exam shows no evidence of ongoing hemorrhage. Plan discharge. 4. Patient states understanding that she should return for any increase in her symptoms, for any new pains or fevers, or for any other concerns. Patient reassessed frequently. Discharge orders placed MDM Number of Diagnoses or Management Options Dysfunctional uterine bleeding: new and requires workup Amount and/or Complexity of Data Reviewed Clinical lab tests: ordered and reviewed Tests in the radiology section of CPT??: ordered and reviewed Tests in the medicine section of CPT??: reviewed and ordered Decide to obtain previous medical records or to obtain history from someone other than the patient:yes Obtain history from someone other than the patient: yes Review and summarize past medical records: yes Discuss the patient with other providers: yes Independent visualization of images, tracings, or specimens: yes Risk of Complications, Morbidity, and/or Mortality Presenting problems: moderate Diagnostic procedures: moderate Management options: moderate Medications - No data to display Clinical Impression Dysfunctional uterine bleeding (Primary) Discharge Medication List as of 11/27/2018 9:39 PM START taking these medications Details hydrocodone-acetaminophen 5-325 MG tablet Take 1 tablet by mouth every 6 (six) hours as needed. Indications: Acute Pain < 3 Day Supply, Starting 11/27/2018, Print Class: Print Pharmacy: [facility] - [place], [place] - [address] [place] [address] ( #: [phone]) Disposition: Discharge Follow-Up: [address] [address] SAUL VICENTE MD 11/28/2018 Of note, this document was completed using [employer] dictation software. Please excuse any typographical errors. Saul Vicente MD 11/28/18 0218 * Pato Lemus Jr., NP - 11/27/2018 7:21 PM CDT [place], [place] EMERGENCY DEPARTMENT ENCOUNTER Medical Screening Examination 11/27/18 7:21 PM Chief Complaint : Vaginal Bleeding HPI : Roxana Amos is a 28-year-old female who presents lower abdominal cramping compromised vaginal bleeding which started yesterday. Patient reports that 2 weeks ago she had a positive test, and a faint positive of the day. She reports history of ectopic as well as miscarriage. Vital Signs: Filed Vitals: 11/27/18 1914 BP: 127/77 Pulse: 110 Resp: 18 Temp: 98.5 ??F (36.9 ??C) SpO2: 99% Weight: 69.4 kg (152 lb 16 oz) Height: 5' 5 (1.651 m) Physical exam: A brief physical exam was completed to facilitate/expedite patient care. Garza findings include: Plan: Labs were ordered to facilitate patient care. Pato Lemus Jr., NP 11/27/181931 Cosigned by Saul Vicente MD at 11/27/2018 8:27 PM CDT * Rhett Carrillo RN - 11/27/2018 7:12 PM CDT Pt ambulatory to ED complaining of vaginal bleeding, cramping, had positive at home recently. Hx of polycystic ovaries, hx of miscarriage, and ectopic . Denies nv, complains of diarrhea and chills. Last Menstrual period in September, Ob notified documented in this encounter Plan of Treatment Not on file documented as of this encounter Procedures Procedure Name Priority Date/Time Associated Diagnosis Comments URINE BACTERIA CULTURE Routine 9 7:45 PM CDT URINALYSIS STAT 11/27/2018 7:44 PM CDT COMPREHENSIVE METABOLIC PANEL STAT 11/27/2018 7:37 PM CDT HCG QUANT (SERUM)-CHORIONIC GONADOTROPIN STAT 11/27/2018 7:37 PM CDT BLOOD TYPING, ABO AND RH STAT 11/27/2018 7:37 PM CDT CBC W/DIFF AUTOMATED STAT 11/27/2018 7:37 PM CDT documented in this encounter Results * CULTURE URINE (11/27/2018 7:45 PM CDT) SPEC DESCRIPTION URINE CLEAN CATCH 11/27/2018 9:24 PM CDT [facility] SPECIAL REQUESTS NO SPECIAL REQUEST 11/27/2018 9:24 PM CDT [facility] CULTURE RESULT POLYMICROBIAL GROWTH CONSISTENT WITH NORMAL GENITAL PHILIP. ?? SUSCEPTIBILITIES NOT ROUTINELY PERFORMED. 11/29/2018 11:19 AM CDT [facility] URINE SPECIMEN OBTAINED BY CLEAN CATCH PROCEDURE / Unknown 11/27/2018 7:45 PM CDT 11/27/2018 9:24 PM CDT Saul Vicente MD MICROBIOLOGY - GENERAL ORDERAB LES Final Result [facility] [address] [place] [address], [place] [phone] * (ABNORMAL) URINALYSIS (11/27/2018 7:44 PM CDT) SPECIMEN TYPE URINE CLEAN CATCH 11/27/2018 7:44 PM CDT [facility] COLOR (U) YELLOW 11/27/2018 8:25 PM CDT [facility] TRANSPARENCY CLEAR 11/27/2018 8:25 PM CDT [facility] SPECIFIC GRAVITY (U) 1.023 1.001 - 1.030 11/27/2018 8:25 PM CDT [facility] U PH 6.0 5.0 - 9.0 11/27/2018 8:25 PM CDT [facility] LEUKOCYTES (U) TRACE(A) NEGATIVE 11/27/2018 8:25 PM CDT [facility] NITRITES NEGATIVE NEGATIVE 11/27/2018 8:25 PM CDT [facility] PROTEIN (U) NEGATIVE <30 MG/DL 11/27/2018 8:25 PM CDT [facility] URINE GLUCOSE NEGATIVE NEGATIVE MG/DL 11/27/2018 8:25 PM CDT [facility] KETONES MG/DL (U) NEGATIVE NEGATIVE MG/DL 11/27/2018 8:25 PM CDT [facility] UROBILINOGEN NEGATIVE NEGATIVE MG/DL 11/27/2018 8:25 PM CDT [facility] BILIRUBIN (U) NEGATIVE NEGATIVE MG/DL 11/27/2018 8:25 PM CDT [facility] BLOOD (U) LARGE(A) NEGATIVE 11/27/2018 8:25 PM CDT [facility] CULTURE & SENSITIVITY INDICATED? SPECIMEN SETUP FOR CULTURE 11/27/2018 8:25 PM CDT [facility] SQUAMOUS EPITHELIALS MANY /LPF 11/27/2018 8:25 PM CDT [facility] MUCUS RARE /LPF 11/27/2018 8:25 PM CDT [facility] WBC/HPF 1 <6 /HPF 11/27/2018 8:25 PM CDT [facility] RBC/HPF 1 <6 /HPF 11/27/2018 8:25 PM CDT [facility] URINE SPECIMEN OBTAINED BY CLEAN CATCH PROCEDURE / Unknown 11/27/2018 7:44 PM CDT us Pato Lemus Jr., NP URINE ORDERABLES Fin al Result [facility] [address] [place] [address], [place] [phone] * BLOOD TYPING, ABO AND RH (11/27/2018 7:37 PM CDT) ABO/RH A POSITIVE 11/27/2018 8:39 PM CDT [facility] 11/27/2018 7:37 PM CDT us Pato Lemus Jr., [employer] BLOOD BANK TEST HALLE DEMPSEY Final Result Performing Organization Address [facility] de Phone Number [facility] [address] [place] [address], * Quantitative HCG (11/27/2018 7:37 PM CDT) Pathologist [facility] HCG QUANTITATIVE <1 MIU/ML 11/28/19 19 8:14 PM CDT [facility] Comment: WEEKS OF ? REFERENCE RANGES Non- [...] 2 - 3 MONTHS ?10,000 - 100,000 11/27/2018 7:37 PM CDT Pato Lemus Jr., [employer] LABORATORY Miryam l Result Performing Organization Address [facility] Co de Phone Number [facility] [address] [place] [address], * (ABNORMAL) COMPREHENSIVE METABOLIC PANEL (11/27/2018 7:37 PM CDT) GLUCOSE 84 70 - 99 MG/DL 11/27/2018 8:12 PM CDT [facility] BUN 15 7 - 18 MG/DL 11/27/2018 8:12 PM T [facility] CREATININE S/P/B 0.82 0.55 - 1.02 MG/DL 11/27/2018 8:12 PM CDT [facility] SODIUM S/P/B 140 136 - 145 MMOL/L 11/27/2018 8:12 PM CDT [facility] POTASSIUM S/P/B 3.9 3.5 - 5.1 MMOL/L 11/27/2018 8:12 PM CDT [facility] CHLORIDE S/P/B 109(H) 100 - 108 MMOL/L 11/27/2018 8:12 PM CDT [facility] CO2 27.4 21 - 32 MMOL/L 11/27/2018 8:12 PM CDT [facility] CALCIUM S/P/B 8.9 8.5 - 10.1 MG/DL 11/27/2018 8:12 PM CDT [facility] BILIRUBIN TOTAL S/P/B 0.3 0.2 - 1.2 MG/DL 11/27/2018 8:12 PM CDT [facility] TOTAL PROTEIN S/P/B 7.2 6.4 - 8.2 G/DL 11/27/2018 8:12 PM CDT [facility] ALBUMIN S/P/B 3.8 3.4 - 5.0 G/DL 11/27/2018 8:12 PM CDT [facility] AST 14(L) 15 - 37 U/L 11/27/2018 8:12 PM CDT [facility] ALT 21 14 - 55 U/L 11/27/2018 8:12 PM CDT [facility] ALKALINE PHOSPHATASE S/P/B 70 50 - 136 U/L 11/27/2018 8:12 PM CDT [facility] ANION GAP 3.6(L) 5 - 15 MMOL/L 11/27/2018 8:12 PM CDT [facility] BUN CREATININE RATIO 18.2 6 - 26 11/27/2018 8:12 PM CDT [facility] A/G RATIO 1.1 1.0 - 2.0 RATIO 11/27/2018 8:12 PM CDT [facility] EGFR NON-AFR. AMER. >90 >90 ML/MIN/1.7 3 M2 11/27/2018 8:12 PM CDT [facility] EGFR AFR. AMER. >90 >90 ML/MIN/1.7 3 M2 11/27/2018 8:12 PM CDT [facility] Comment: NOTE: eGFR is not calculated for patients <18 years of age. This is an estimated GFR (CKD EPI) and should not be used for calculating drug doses. 11/27/2018 7:37 PM CDT Pato Lemus Jr., [employer] LABORATORY Miryam l Result [facility] [address] [place] [address], * CBC W/DIFF AUTOMATED (11/27/2018 7:37 PM CDT) WBC 9.7 4.5 - 11.0 x10'3/uL 11/27/2018 7:53 PM CDT [facility] RBC 4.45 4.20 - 5.40 x10'6/uL 11/27/2018 7:53 PM CDT [facility] HGB 13.0 12.0 - 16.0 G/DL 11/27/2018 7:53 PM CDT [facility] HCT 40.5 38.0 - 48.0 % 11/27/2018 7:53 PM CDT [facility] MCV 91.0 81.0 - 99.0 FL 11/27/2018 7:53 PM CDT [facility] MCH 29.2 27.0 - 31.0 PG 11/27/2018 7:53 PM CDT [facility] MCHC 32.1 32.0 - 36.0 G/DL 11/27/2018 7:53 PM CDT [facility] RDW 13.3 11.5 - 14.5 % 11/27/2018 7:53 PM CDT [facility] PLT 332 130 - 400 x10'3/uL 11/27/2018 7:53 PM CDT [facility] MPV 9.6 9.3 - 12.2 FL 11/27/2018 7:53 PM CDT [facility] DIFFERENTIAL TYPE AUTOMATED DIFFERENTIAL 11/27/2018 7:53 PM CDT [facility] NEUTROPHILS % 65.7 % 11/27/2018 7:53 PM CDT [facility] LYMPHOCYTES % 23.7 % 11/27/2018 7:53 PM CDT [facility] MONOCYTES % 8.4 % 11/27/2018 7:53 PM CDT [facility] EOSINOPHILS 1.2 % 11/27/2018 7:53 PM CDT [facility] BASOPHILS 0.6 % 11/27/2018 7:53 PM CDT [facility] IMMATURE GRANS % 0.4 % 11/28/19 19 7:53 PM CDT [facility] ABS. NEUTROPHILS TOTAL 6.34 1.80 - 7.70 x10'3/uL 11/27/2018 7:53 PM CDT [facility] ABS. LYMPHOCYTES 2.29 1.00 - 4.80 x10'3/uL 11/27/2018 7:53 PM CDT [facility] ABS. MONOCYTES 0.81 0.24 - 0.86 x10'3/uL 11/27/2018 7:53 PM CDT [facility] ABS. EOSINOPHILS 0.12 0.04 - 0.36 x10'3/uL 11/27/2018 7:53 PM CDT [facility] ABS. BASOPHILS 0.06 0.01 - 0.08 x10'3/uL 11/27/2018 7:53 PM CDT [facility] ABS. IMMATURE GRANULOCYTES 0.04 0.00 - 0.49 x10'3/uL 11/27/2018 7:53 PM CDT [facility] 11/27/2018 7:37 PM CDT Pato Lemus Jr., [employer] LABORATORY Miryam l Result [facility] [address] [place] [address], documented in this encounter Visit Diagnoses Diagnosis Dysfunctional uterine bleeding- Primary Other disorder of menstruation and other abnormal bleeding from female genital tract documented in this encounter Care Teams [employer] Mach[employer] Valuer Relationship Specialty Start Date End Date Kit Arriola MD [id number] [address] PCP - General 12/01/15 07/13/20 documented as of this encounter
--- OUTSIDE RECORDS SUMMARY | 2024-02-17 13:39 | XMS_ITS | Encounter Summary ---
Author Organization [facility] Address [address] [place] [address] [place] [address] Care Team Providers Care Tax Processor Name Role Phone Kit Arriola MD Primary Care Provider [phone] Reason for Visit * Reason Comments Abdominal Pain Encounter Details Date Type Department Care Team (Late st Contact Info) Description 03/27/2019 6:09 PM FAMILY SERVICE COUNSELOR - 03/27/2019 9:02 PM FAMILY SERVICE COUNSELOR Emergency [facility] Emergency Room [place], [place] [address] Manda De La Vega PA-C [address] [address] Abdominal Pain Discharge Disposition: Home or Self Care [...] Sign Reading Time Taken Comments Blood Pressure 122/84 03/27/2019 8:32 PM FAMILY SERVICE COUNSELOR Pulse 77 03/27/2019 8:32 PM FAMILY SERVICE COUNSELOR Temperature 36.6 ??C (97.9 ??F) 03/27/2019 5:53 PM CS T Respiratory Rate 18 03/27/2019 8:32 PM FAMILY SERVICE COUNSELOR Oxygen Saturation 100% 03/27/2019 8:32 PM FAMILY SERVICE COUNSELOR Inhaled Oxygen Concentration - - Weight 68.4 kg (150 lb 12.7 oz) 03/27/2019 5:52 PM FAMILY SERVICE COUNSELOR Height 165.1 cm (5' 5 ) 03/27/2019 5:52 PM FAMILY SERVICE COUNSELOR Body Mass Index 25.09 03/27/2019 5:52 PM FAMILY SERVICE COUNSELOR documented in this encounter Discharge Instructions * Discharge Instructions* Manda De La Vega PA-C - 03/27/2019 8:37 PM FAMILY SERVICE COUNSELOR Take antibiotic as prescribed for simple UTI. [id number] Tylenol as needed for pain. Continueyour fertility medications as directed by your ARBORICULTURE TEACHER. Please follow-up with your ARBORICULTURE TEACHER to further discuss irregular menstrual cycles, heavy abdominal cramping and vaginal bleeding, attempt, fertility medication side effects. LY SERVICE COUNSELOR * Attachments The following attachments cannot be sent through Care Everywhere. * Acute Cystitis Discharge Instructions (Pashto) documented in this encounter Medications at Time of Discharge letrozole 2.5 MG tablet Take 2.5 mg by mouth see administration instructions. Daily on days 3-8 0 9 10/05/19 21 nitrofurantoin, macrocrystal-monohy drate, 100 MG capsule Take 1 capsule (100 mg total) by mouth 2 (two) times daily for 5 days. 10 capsule 0 04/01/19 20 ondansetron 4 MG disintegrating tablet Take 1 tablet (4 mg total) by mouth every 8 (eight) hours as needed. 20 tablet 9 10/05/19 21 documented as of this encounter ED Notes * Manda De La Vega PA-C - 03/27/2019 8:32 PM CST ED NOTE Roxana Amos 1990 Chief Complaint Chief Complaint Patient presents with ??? Abdominal Pain History of Present Illness 29-year-old white female patient presents to the emergency room complaining of bilateral lower abdominal cramping, heavy irregular menstrual cycles, breast soreness. She has had irregular menstrual cycles for several months. She is on fertility medications and attempting to become . She sees [facility] ARBORICULTURE TEACHER, Dr. Antonio. History of PCOS. No abdominal surgical history reported. She denies fever, vomiting, diarrhea, vaginal discharge, urinary symptoms. Medical History ALLERGIES: Allergies Allergen Reactions ??? Latex Hives ??? Morphine Hives and Itching MEDICATIONS: Prior to Admission medications Medication Sig Start Date End Date Taking? Authorizing Provider nitrofurantoin, macrocrystal-monohydrate, 100 MG capsule Take 1 capsule (100 mg total) by mouth 2 (two) times daily for 5 days. 03/27/19 04/01/19 Yes Manda De La Vega PA-C letrozole 2.5 MG tablet Take 2.5 mg by mouth see administration instructions. Daily on days 3-8 12/31/18 Doc Abstract ondansetron 4 MG disintegrating tablet Take 1 tablet (4 mg total) by mouth every 8 (eight) hours asneeded. 01/13/19 Kimberlee De Leon, [facility] PAST MEDICAL HISTORY: Past Medical History: Diagnosis Date ??? Anemia ??? Ectopic ??? Kidney stones ??? PCOS (polycystic ovarian syndrome) on Metformin PAST SURGICAL HISTORY: Past Surgical History: Procedure Laterality Date ??? CHOLECYSTECTOMY ??? ECTOPIC FAMILY HISTORY: Family History Problem Relation Name Age of Onset ??? Stroke Father ??? None Mother SOCIAL HISTORY: Social History Tobacco Use ??? Smoking status: Never Smoker ??? Smokeless tobacco: Never Used Substance Use Topics ??? Alcohol use: No Comment: rare use ??? Drug use: No Review of Systems Review of Systems Constitutional: Negative for activity change, appetite change, fever and unexpected weight change. HENT: Negative for ear pain, sore throat and trouble swallowing. Eyes: Negative. Respiratory: Negative for cough, chest tightness and shortness of breath. Cardiovascular: Negative for chest pain, palpitations and leg swelling. Gastrointestinal: Positive for abdominal pain. Negative for abdominal distention, constipation, diarrhea, nausea and vomiting. Endocrine: Negative. Genitourinary: Positive for menstrual problem and vaginal bleeding. Negative for dysuria, flank pain, hematuria and vaginal discharge. Musculoskeletal: Negative for arthralgias, back pain, myalgias and neck pain. Skin: Negative for color change, rash and wound. Allergic/Immunologic: Negative for immunocompromised state. Neurological: Negative for dizziness, speech difficulty, weakness, light- headedness, numbness and headaches. Hematological: Negative for adenopathy. Psychiatric/Behavioral: Negative. Physical Exam Filed Vitals: 03/27/19 1752 03/27/19 1753 03/27/19 2032 BP: 119/84 119/84 122/84 Pulse: 88 88 77 Resp: 17 17 18 Temp: 97.9 ??F (36.6 ??C) 97.9 ??F (36.6 ??C) SpO2: 100% 100% 100% Weight: 68.4 kg (150 lb 12.7 oz) Height: 5' 5 (1.651 m) Physical Exam Constitutional: She is oriented to person, place, and time. She appears well- developed and well-nourished. No distress. Well-appearing, pleasant, cooperative. Nontoxic appearance. No obvious discomfort noted. HENT: Head: Normocephalic and atraumatic. Right Ear: External ear normal. Left Ear: External ear normal. Nose: Nose normal. Mouth/Throat: Oropharynx is clear and moist. Eyes: Pupils are equal, round, and reactive to light. Conjunctivae and EOM are normal. Neck: Normal range of motion. Neck supple. No tracheal deviation present. No thyromegaly present. Cardiovascular: Normal rate, regular rhythm, normal heart sounds and intact distal pulses. Pulmonary/Chest: Effort normal and breath sounds normal. No respiratory distress. Abdominal: Soft. Bowel sounds are normal. She exhibits no distension and no mass. There is no tenderness. There is no rebound and no guarding. No hernia. No tenderness to any region. Negative McBurney point. No CVA tenderness Musculoskeletal: Normal range of motion. She exhibits no edema, tenderness or deformity. Lymphadenopathy: She has no cervical adenopathy. Neurological: She is alert and oriented to person, place, and time. She displays normal reflexes. No cranial nerve deficit or sensory deficit. She exhibits normal muscle tone. Coordination normal. Skin: Skin is warm and dry. Capillary refill takes less than 2 seconds. No rash noted. She is not diaphoretic. No pallor. Psychiatric: She has a normal mood and affect. Her behavior is normal. Judgment and thought contentnormal. Nursing note and vitals reviewed. Diagnostic Studies / Procedures ELECTROCARDIOGRAMS: No results found for this visit on 03/27/19. LABORATORY STUDIES: Results for orders placed or performed during the hospital encounter of 03/27/19 CBC W/DIFF AUTOMATED Result Value Ref Range WBC 9.0 4.5 - 11.0 x10'3/uL RBC 4.30 4.20 - 5.40 x10'6/uL HGB 12.5 12.0 - 16.0 G/DL HCT 38.2 38.0 - 48.0 % MCV 88.8 81.0 - 99.0 FL MCH 29.1 27.0 - 31.0 PG MCHC 32.7 32.0 - 36.0 G/DL RDW 13.4 11.5 - 14.5 % PLT 352 130 - 400 x10'3/uL MPV 9.5 9.3 - 12.2 FL DIFFERENTIAL TYPE AUTOMATED DIFFERENTIAL NEUTROPHILS 63.4 % LYMPHOCYTES 28.1 % MONOCYTES 6.4 % EOSINOPHILS 1.1 % BASOPHILS 0.6 % IMMATURE GRANS 0.4 % ABS. NEUTROPHILS TOTAL 5.73 1.80 - 7.70 x10'3/uL ABS. LYMPHOCYTES 2.54 1.00 - 4.80 x10'3/uL ABS. MONOCYTES 0.58 0.24 - 0.86 x10'3/uL ABS. EOSINOPHILS 0.10 0.04 - 0.36 x10'3/uL ABS. BASOPHILS 0.05 0.01 - 0.08 x10'3/uL ABS. IMMATURE GRANULOCYTES 0.04 0.00 - 0.49 x10'3/uL COMPREHENSIVE METABOLIC PANEL Result Value Ref Range GLUCOSE 92 70 - 99 MG/DL BUN 15 7 - 18 MG/DL CREATININE 0.80 0.55 - 1.02 MG/DL SODIUM 138 136 - 145 MMOL/L POTASSIUM 3.2 (L) 3.5 - 5.1 MMOL/L CHLORIDE 106 100 - 108 MMOL/L CO2 28.6 21 - 32 MMOL/L CALCIUM 8.9 8.5 - 10.1 MG/DL TOTAL BILIRUBIN 0.5 0.2 - 1.2 MG/DL TOTAL PROTEIN 7.7 6.4 - 8.2 G/DL ALBUMIN 3.9 3.4 - 5.0 G/DL AST 13 (L) 15 - 37 U/L ALT 25 14 - 55 U/L ALK PHOS 77 50 - 136 U/L ANION GAP 3.4 (L) 5 - 15 MMOL/L BUN CREATININE RATIO 18.7 6 - 26 A/G RATIO 1.0 1.0 - 2.0 RATIO eGFR Non-Afr. Amer. >90 >90 ML/MIN/1.73 M2 eGFR Afr. Amer. >90 >90 ML/MIN/1.73 M2 LIPASE Result Value Ref Range LIPASE 97 73 - 393 UNITS/L URINALYSIS Result Value Ref Range Specimen Type URINE CLEAN CATCH COLOR RED TRANSPARENCY CLOUDY Specific [place] (U) 1.030 1.001 - 1.030 U PH 5.0 5.0 - 9.0 LEUKOCYTE ESTERASE TRACE (A) NEGATIVE NITRITES NEGATIVE NEGATIVE PROTEIN, URINE 100 (H) <30 MG/DL URINE GLUCOSE NEGATIVE NEGATIVE MG/DL U KETONES NEGATIVE NEGATIVE MG/DL UROBILINOGEN NEGATIVE NEGATIVE MG/DL Urine Bilirubin NEGATIVE NEGATIVE MG/DL BLOOD LARGE (A) NEGATIVE CULTURE & SENSITIVITY INDICATED? SPECIMEN SETUP FOR CULTURE SQUAMOUS EPITHELIALS MANY /LPF MUCUS MANY /LPF WBC/HPF 20 (H) <6 /HPF RBC/HPF 6 (H) <6 /HPF Qualitative HCG Result Value Ref Range PREG SCREEN-SERUM NEGATIVE POCT urine Result Value Ref Range URINE HCG TEST Negative NEGATIVE INT CTRL PERFORMED EXPECTED? Control Line Present IMAGING STUDIES No orders to display ED Course / Medical Decision Making MDM Number of Diagnoses or Management Options Amount and/or Complexity of Data Reviewed Clinical lab tests: ordered and reviewed Patient is in no acute distress, vital signs stable, afebrile. Abdomen benign. Nontoxic-appearing exam. No significant distress noted. Labs with mild hypokalemia and UTI, otherwise unremarkable for acute concern. No anemia noted. Urine and blood testing negative. No indication for emergent imaging. Vaginal exam deferred due to stable labs and unimpressive exam. Will discharge home with continued ARBORICULTURE TEACHER follow-up to further discuss fertility medications, attempt, side effects from fertility medications. P.o. KCl given in the ED. Medications potassium chloride CR (K-TAB) tablet 40 mEq (has no administration in time range) Clinical Impression Acute cystitis with hematuria (Primary) Hypokalemia Irregular menses Lower abdominal pain Negative test Current Discharge Medication List START taking these medications Details nitrofurantoin, macrocrystal-monohydrate, 100 MG capsule Take 1 capsule (100 mg total) by mouth 2 (two) times daily for 5 days. Qty: 10 capsule, Refills: 0 Class: Print Pharmacy: [facility] [address] [place] [address] ( #: [phone]) Disposition: Discharge Follow-Up: Kit Arriola MD [address] [address] In 2 days Vahid Antonio MD [address] [facility] [address] In 2 days MANDA DE LA VEGA PA-C 03/27/2019 Manda De La Vega PA-C 03/27/192037 Cosigned by Zia Painter MD at 03/27/2019 9:43 PM FAMILY SERVICE COUNSELOR LY SERVICE COUNSELOR LY SERVICE COUNSELOR * Dmitriy Davenport PA-C - 03/27/2019 6:15 PM CST [place], [place] EMERGENCY DEPARTMENT ENCOUNTER Medical Screening Examination 03/27/19 6:19 PM Chief Complaint : Abdominal Pain HPI : Roxana Amos is a 29-year-old female who presents to the ED with report of lower abdominal pain and heavy vaginal bleeding. Patient states symptom started 1 day ago. Patient states she takes fertility medication and is attempting to become . Patient has history of PCOS. Vital Signs: Filed Vitals: 03/27/19 1752 03/27/19 1753 BP: 119/84 119/84 Pulse: 88 88 Resp: 17 17 Temp: 97.9 ??F (36.6 ??C) 97.9 ??F (36.6 ??C) SpO2: 100% 100% Weight: 68.4 kg (150 lb 12.7 oz) Height: 5' 5 (1.651 m) Physical exam: A brief physical exam was completed to facilitate/expedite patient care. Plan: Necessary labs/imaging/medications ordered to initiate pt care. Dmitriy Davenport PA-C 03/27/191818 Cosigned by Mark Anthony Jj MD at 03/28/2019 7:12 AM FAMILY SERVICE COUNSELOR LY SERVICE COUNSELOR LY SERVICE COUNSELOR * Itzel Metz RN - 03/27/2019 5:50 PM CST To er triage with c/o abdominal pain and heavy vaginal bleeding. States she has irregular periods and is taking a fertility pill. Also notes very sore breasts. LY SERVICE COUNSELOR documented in this encounter Plan of Treatment Not on file documented as of this encounter Procedures Procedure Name Priority Date/Time Associated Diagnosis Comments HC URINALYSIS AUTO W/O MICRO STAT 03/27/2019 6:30 PM FAMILY SERVICE COUNSELOR URINE BACTERIA CULTURE Routine 0 6:30 PM FAMILY SERVICE COUNSELOR COMPREHENSIVE METABOLIC PANEL STAT 03/27/2019 6:29 PM FAMILY SERVICE COUNSELOR CHORIONIC GONADOTROPIN HCG QL STAT 03/27/2019 6:29 PM FAMILY SERVICE COUNSELOR CBC W/DIFF AUTOMATED STAT 03/27/2019 6:29 PM FAMILY SERVICE COUNSELOR LIPASE STAT 03/27/2019 6:29 PM FAMILY SERVICE COUNSELOR POCT URINE (BACK OFFICE) STAT 03/27/2019 6:28 PM FAMILY SERVICE COUNSELOR documented in this encounter Results * CULTURE URINE (03/27/2019 6:30 PM FAMILY SERVICE COUNSELOR) SPEC DESCRIPTION URINE CLEAN CATCH 03/27/2019 9:43 PM FAMILY SERVICE COUNSELOR [facility] SPECIAL REQUESTS NO SPECIAL REQUEST 03/27/2019 9:43 PM FAMILY SERVICE COUNSELOR [facility] CULTURE RESULT POLYMICROBIAL GROWTH CONSISTENT WITH NORMAL GENITAL PHILIP. ?? SUSCEPTIBILITIES NOT ROUTINELY PERFORMED. 03/29/2019 11:00 AM [facility] URINE SPECIMEN OBTAINED BY CLEAN CATCH PROCEDURE / Unknown 03/27/2019 6:30 PM FAMILY SERVICE COUNSELOR 03/27/2019 9:42 PM FAMILY SERVICE COUNSELOR Dmitriy Davenport PA-C MICROBIOLOGY - GENERAL ORDERABLES Final Result [facility] [address] [place] [address], * (ABNORMAL) URINALYSIS (03/27/2019 6:30 PM FAMILY SERVICE COUNSELOR) SPECIMEN TYPE URINE CLEAN CATCH 03/27/2019 6:28 PM [facility] COLOR (U) RED 03/27/2019 7:01 PM [facility] TRANSPARENCY CLOUDY 03/27/2019 7:01 PM [facility] SPECIFIC GRAVITY (U) 1.030 1.001 - 1.030 03/27/2019 7:01 PM [facility] U PH 5.0 5.0 - 9.0 03/27/2019 7:01 PM [facility] LEUKOCYTES (U) TRACE(A) NEGATIVE 03/27/2019 7:01 PM [facility] NITRITES NEGATIVE NEGATIVE 03/27/2019 7:01 PM [facility] PROTEIN (U) 100(H) <30 MG/DL 03/27/2019 7:01 PM [facility] URINE GLUCOSE NEGATIVE NEGATIVE MG/DL 03/27/2019 7:01 PM [facility] KETONES MG/DL (U) NEGATIVE NEGATIVE MG/DL 03/27/2019 7:01 PM [facility] UROBILINOGEN NEGATIVE NEGATIVE MG/DL 03/27/2019 7:01 PM FAMILY SERVICE COUNSELOR [facility] BILIRUBIN (U) NEGATIVE NEGATIVE MG/DL 03/27/2019 7:01 PM FAMILY SERVICE COUNSELOR [facility] BLOOD (U) LARGE(A) NEGATIVE 03/27/2019 7:01 PM [facility] CULTURE & SENSITIVITY INDICATED? SPECIMEN SETUP FOR CULTURE 03/27/2019 7:01 PM FAMILY SERVICE COUNSELOR [facility] SQUAMOUS EPITHELIALS MANY /LPF 03/27/2019 7:01 PM FAMILY SERVICE COUNSELOR [facility] MUCUS MANY /LPF 03/27/2019 7:01 PM [facility] WBC/HPF 20(H) <6 /HPF 03/27/2019 7:01 PM [facility] RBC/HPF 6(H) <6 /HPF 03/27/2019 7:01 PM FAMILY SERVICE COUNSELOR [facility] URINE SPECIMEN OBTAINED BY CLEAN CATCH PROCEDURE / Unknown 03/27/2019 6:30 PM FAMILY SERVICE COUNSELOR us Dmitriy Davenport PA-C URINE ORDERABLES Final Result [facility] [address] [place] [id number], [place] [phone] * Qualitative HCG (03/27/2019 6:29 PM FAMILY SERVICE COUNSELOR) PREG SCREEN-SERUM NEGATIVE 03/27/2019 7:45 PM FAMILY SERVICE COUNSELOR [facility] 03/27/2019 6:29 PM FAMILY SERVICE COUNSELOR us Dmitriy Davenport PA-C LABORATORY Final R esult [address] [address], [place] [phone] * LIPASE (03/27/2019 6:29 PM FAMILY SERVICE COUNSELOR) LIPASE 97 73 - 393 UNITS/L 03/27/2019 7:13 PM [facility] 03/27/2019 6:29 PM FAMILY SERVICE COUNSELOR Dmitriy Davenport PA-C LABORATORY Final R esult [facility] [address] [place] [address], [place] [phone] * (ABNORMAL) COMPREHENSIVE METABOLIC PANEL (03/27/2019 6:29 PM FAMILY SERVICE COUNSELOR) GLUCOSE 92 70 - 99 MG/DL 03/27/2019 7:13 PM [facility] BUN 15 7 - 18 MG/DL 03/27/2019 7:13 PM [facility] CREATININE S/P/B 0.80 0.55 - 1.02 MG/DL 03/27/2019 7:13 PM [facility] SODIUM S/P/B 138 136 - 145 MMOL/L 03/27/2019 7:13 PM [facility] POTASSIUM S/P/B 3.2(L) 3.5 - 5.1 MMOL/L 03/27/2019 7:13 PM [facility] CHLORIDE S/P/B 106 100 - 108 MMOL/L 03/27/2019 7:13 PM [facility] CO2 28.6 21 - 32 MMOL/L 03/27/2019 7:13 PM [facility] CALCIUM S/P/B 8.9 8.5 - 10.1 MG/DL 03/27/2019 7:13 PM [facility] BILIRUBIN TOTAL S/P/B 0.5 0.2 - 1.2 MG/DL 03/27/2019 7:13 [address] FAMILY SERVICE COUNSELOR [facility] TOTAL PROTEIN S/P/B 7.7 6.4 - 8.2 G/DL 03/27/2019 7:13 PM [facility] ALBUMIN S/P/B 3.9 3.4 - 5.0 G/DL 03/27/2019 7:13 PM [facility] AST 13(L) 15 - 37 U/L 03/27/2019 7:13 PM [facility] ALT 25 14 - 55 U/L 03/27/2019 7:13 PM [facility] ALKALINE PHOSPHATASE S/P/B 77 50 - 136 U/L 03/27/2019 7:13 PM [facility] ANION GAP 3.4(L) 5 - 15 MMOL/L 03/27/2019 7:13 PM [facility] BUN CREATININE RATIO 18.7 6 - 26 03/27/2019 7:13 PM [facility] A/G RATIO 1.0 1.0 - 2.0 RATIO 03/27/2019 7:13 PM [facility] EGFR NON-AFR. AMER. >90 >90 ML/MIN/1.7 3 M2 03/27/2019 7:13 PM [facility] EGFR AFR. AMER. >90 >90 ML/MIN/1.7 3 M2 03/27/2019 7:13 PM [facility] Comment: NOTE: eGFR is not calculated for patients <18 years of age. This is an estimated GFR (CKD EPI) and should not be used for calculating drug doses. 03/27/2019 6:29 PM FAMILY SERVICE COUNSELOR us Dmitriy Davenport PA-C LABORATORY Final R esult [facility] [address] [place] [address], * CBC W/DIFF AUTOMATED (03/27/2019 6:29 PM FAMILY SERVICE COUNSELOR) [facility] WBC 9.0 4.5 - 11.0 x10'3/uL 03/27/2019 6:43 PM [facility] RBC 4.30 4.20 - 5.40 x10'6/uL 03/27/2019 6:43 PM [facility] HGB 12.5 12.0 - 16.0 G/DL 03/27/2019 6:43 PM [facility] HCT 38.2 38.0 - 48.0 % 03/27/2019 6:43 PM [facility] MCV 88.8 81.0 - 99.0 FL 03/27/2019 6:43 PM [facility] MCH 29.1 27.0 - 31.0 PG 03/27/2019 6:43 PM [facility] MCHC 32.7 32.0 - 36.0 G/DL 03/27/2019 6:43 PM [facility] RDW 13.4 11.5 - 14.5 % 03/27/2019 6:43 PM [facility] PLT 352 130 - 400 x10'3/uL 03/27/2019 6:43 PM [facility] MPV 9.5 9.3 - 12.2 FL 03/27/2019 6:43 PM [facility] DIFFERENTIAL TYPE AUTOMATED DIFFERENTIAL 03/27/2019 6:43 PM [facility] NEUTROPHILS % 63.4 % 03/27/2019 6:43 PM [facility] LYMPHOCYTES % 28.1 % 03/27/2019 6:43 PM [facility] MONOCYTES % 6.4 % 03/27/2019 6:43 PM FAMILY SERVICE COUNSELOR [facility] EOSINOPHILS 1.1 % 03/27/2019 6:43 [address] FAMILY SERVICE COUNSELOR [facility] BASOPHILS 0.6 % 03/27/2019 6:43 PM FAMILY SERVICE COUNSELOR [facility] IMMATURE GRANS % 0.4 % 03/27/19 6:43 [address] FAMILY SERVICE COUNSELOR [facility] ABS. NEUTROPHILS TOTAL 5.73 1.80 - 7.70 x10'3/uL 03/27/2019 6:43 [address] FAMILY SERVICE COUNSELOR [facility] ABS. LYMPHOCYTES 2.54 1.00 - 4.80 x10'3/uL 03/27/2019 6:43 [address] FAMILY SERVICE COUNSELOR [facility] ABS. MONOCYTES 0.58 0.24 - 0.86 x10'3/uL 03/27/2019 6:43 [address] FAMILY SERVICE COUNSELOR [facility] ABS. EOSINOPHILS 0.10 0.04 - 0.36 x10'3/uL 03/27/2019 6:43 PM FAMILY SERVICE COUNSELOR [facility] ABS. BASOPHILS 0.05 0.01 - 0.08 x10'3/uL 03/27/2019 6:43 PM FAMILY SERVICE COUNSELOR [facility] ABS. IMMATURE GRANULOCYTES 0.04 0.00 - 0.49 x10'3/uL 03/27/2019 6:43 PM [facility] 03/27/2019 6:29 PM FAMILY SERVICE COUNSELOR us Dmitriy Davenport PA-C LABORATORY Final R esult [facility] [address] [place] [address], [place] [phone] * POCT urine (03/27/2019 6:28 PM FAMILY SERVICE COUNSELOR) URINE HCG TEST Negative NEGATIVE Internal Control performed as Expected? Control Line Present us Dmitriy Davenport PA-C POINT OF CARE TEST HALLE DEMPSEY Final Result documented in this encounter Visit Diagnoses Diagnosis Acute cystitis with hematuria- Primary Acute cystitis Hypokalemia Hypopotassemia Irregular menses Irregular menstrual cycle Lower abdominal pain Abdominal pain, other specified site Negative test examination or test, negative result documented in this encounter Administered Medications Inactive Administered Medications - up to 3 most recent administrations Medication Order MAR Action Action Date Dose Rate Site potassium chloride CR (K-TAB) tablet 40 mEq 40 mEq, Oral, Once, 1 dose, On Amanda 03/27/19 at 2044, Do not break, chew, or crush. Given 03/27/2019 8:41 PM FAMILY SERVICE COUNSELOR 40 mEq documented in this encounter Active and Recently Administered Medications Times are shown in FAMILY SERVICE COUNSELOR. Scheduled Medication Order 03/25/2019 03/26/2019 03/27/2019 potassium chloride CR (K-TAB) tablet 40 mEq (COMPLETED) 40 mEq, Oral, Once, 1 dose, On Amanda 03/27/19 at 2044, Do not break, chew, or crush. 2040 (Given - Provid er: Geovanna Narvaez RN) documented in this encounter Care Teams Tax Processor Relationship Specialty Start Date End Date Kit Arriola MD [address] [address] PCP - General 12/01/15 07/13/20 documented as of this encounter
--- OUTSIDE RECORDS SUMMARY | 2024-02-17 13:39 | XMS_ITS | Encounter Summary ---
Author Organization [facility] Address [address] [place] [address] [place] [address] Care Team Providers Care Qa Automation Architect Name Role Phone Kit Arriola MD Primary Care Provider [phone] Kit Arriola MD Unavailable [phone] Reason for Visit * Reason Comments Sore Throat Encounter Details Date Type Department Care Team (Latest Contact Info) Description 10/04/2020 8:04 AM CDT - 10/04/2020 8:34 AM CDT Hospital Encounter [address] [address] Alec Claire MD [address] [place] [address] Sore Throat Discharge Disposition: Home or Self Care (Routine [...] AM CDT documented as of this encounter Last Filed Vital Signs Vital Sign Reading Time Taken Comments Blood Pressure 113/95 10/04/2020 8:07 AM CDT Pulse 86 10/04/2020 8:07 AM CDT Temperature 37.1 ??C (98.8 ??F) 10/04/2020 8:07 AM CD T Respiratory Rate 20 10/04/2020 8:07 AM CDT Oxygen Saturation 100% 10/04/2020 8:07 AM CDT Inhaled Oxygen Concentration - - Weight 63.5 kg (140 lb) 10/04/2020 8:07 AM CDT Height 165.1 cm (5' 5 ) 10/04/2020 8:07 AM CDT Body Mass Index 23.3 10/04/2020 8:07 AM CDT documented in this encounter Discharge Instructions * Attachments The following attachments cannot be sent through Care Everywhere. * Sore Throat Discharge Instructions, Adult (Andorran) documented in this encounter Medications at Time of Discharge lidocaine viscous 2 % solutionIndicatio ns:Sore throat Take 5 mLs by mouth 4 (four) times daily as needed for Pain. 100 mL 10/04/2020 10/09/2020 documented as of this encounter ED Notes * Alec Claire MD - 10/04/2020 8:12 AM CDT Roxana is a Female coming in today for sore throat for 1 day duration. She has had pain while swallowing, tenderness/swelling, redness and headache and denies fever, chills, cough, rash, sinus and nasal congestion, post nasal drip, sinus pain, ear pain, nausea, vomiting, diarrhea, abdominal pain, loss of taste, smell She denies sick contacts. She had negative COVID test 2 days ago She is vaccinated for COVID Roxana is a non smoker. Active Ambulatory Problems Diagnosis Date Noted ??? No Active Ambulatory Problems Resolved Ambulatory Problems Diagnosis Date Noted ??? No Resolved Ambulatory Problems Past Medical History: Diagnosis Date ??? Anemia ??? Ectopic ??? Kidney stones ??? PCOS (polycystic ovarian syndrome) ROS: Review of Systems Constitutional: Negative for chills, fever and malaise/fatigue. HENT: Positive for sore throat. Negative for congestion, ear pain and sinus pain. Eyes: Negative for discharge. Respiratory: Negative for cough, shortness of breath and wheezing. Cardiovascular: Negative for chest pain. Gastrointestinal: Negative for abdominal pain, diarrhea, nausea and vomiting. Musculoskeletal: Negative for myalgias. Skin: Negative for rash. Neurological: Positive for headaches. Negative for dizziness. Examination: Blood pressure (!) 113/95, pulse 86, temperature 98.8 ??F (37.1 ??C), temperature source Oral, resp. rate 20, height 5' 5 (1.651 m), weight 63.5 kg (140 lb), last menstrual period 09/28/2020, SpO2 100 %. GENERAL APPEARANCE: Appears healthy. Alert; in no acute distress. EYES: conjunctivae/corneas clear. EARS: External ears normal. Canals clear. TM's normal. Hearing normal. NOSE: Nares normal. Septum midline. Mucosa normal. No drainage THROAT: positive findings: moderate oropharyngeal erythema, tonsillar hypertrophy 1+ NECK: mild anterior cervical LN adenopathy. LUNGS: Lungs clear; normal breath sounds. SKIN: No rash Assessment and Plan: SNOMED CT(R) 1. Sore throat SORE THROAT SYMPTOM Negative RST Throat culture sent Patient is advised to start using warm salt water gargles along with ibuprofen and Tylenol lots of fluids. It does seem like viral sore throat. I discussed the typical duration of symptoms. Roxana is advised to follow up with PCP if symptoms not improving or generally getting worse and goto Emergency Department at any time if symptoms are significantly worse. Alec Claire MD 10/04/[address] * Daksha Hager RN - 10/04/2020 8:10 AM CDT Pt ambulatory to from home with sore throat that began yesterday. Pt was covid tested negative on Sunday. Pt c/o 7/10 painful swallowing. Pt is fully vaccinated with pfizer. documented in this encounter Plan of Treatment Not on file documented as of this encounter Procedures Procedure Name Priority Date/Time Associated Diagnosis Comments CULTURE STREP A Routine 10/04/2020 8:12 AM CDT Sore throat RAPID STREP A STAT 10/04/2020 8:12 AM CDT Sore throat documented in this encounter Results * CULTURE STREP A (10/04/2020 8:12 AM CDT) SPEC DESCRIPTION THROAT 10/04/2020 8:[address] [facility] SPECIAL REQUESTS NO SPECIAL REQUEST 10/04/2020 8:[address] [facility] CULTURE RESULT NO STREPTOCOCCUS PYOGENES (GROUP A) ISOLATED 10/07/2020 7:10 AM CDT [facility] THROAT SWAB / Unknown 10/04/2020 8:12 AM CDT 10/04/2020 10:36 AM CDT Alec Claire MD MICROBIOLOGY - GENERAL ORDERABL ES Final Result [facility] [address] [id number], [address] [address], [place] * RAPID STREP A (10/04/2020 8:12 AM CDT) SPECIMEN TYPE THROAT 10/04/2020 8:[address] [facility] RAPID STREP TEST NEGATIVE NEGATIVE 10/04/2020 12:[address] [facility] STRUCTURE OF ANTERIOR PORTION OF NECK / Unknown 10/04/2020 8:12 AM CDT us Alec Claire MD MICROBIOLOGY - GENERAL ORDERABL ES Final Result [address] [address], documented in this encounter Visit Diagnoses Diagnosis Sore throat- Primary Acute pharyngitis documented in this encounter Care Teams Qa Automation Architect Relationship Specialty Start Date End Date Kit Arriola MD [address] [address] PCP - General FAMILY PRACTICE 07/14/20 Kit Arriola MD [address] [address] 07/14/20 documented as of this encounter
--- OUTSIDE RECORDS SUMMARY | 2024-02-17 13:39 | XMS_ITS | Encounter Summary ---
Author Organization [facility] Address [address] [facility]. [place], [place] [id number] [place] [address] Care Team Providers Care Ornamental Painter Name Role Phone Kit Arriola MD Primary Care Provider [phone] Encounter Details Date Type Department Care Team (Latest Contact Info) Description 03/27/2019 Travel Social History Tobacco Use Types Packs/Day [...] on filedocumented in this encounter Care Teams Ornamental Painter Relationship Specialty Start Date End Date Kit Arriola MD [address] [address] PCP - General 12/01/15 07/13/20 documented as of this encounter
--- OUTSIDE RECORDS SUMMARY | 2024-02-17 13:39 | XMS_ITS | Encounter Summary ---
Author Organization [facility] Address [address] [facility] [place] [address] [place] [address] Care Team Providers Care Fence Installer Helper Name Role Phone Kit Arriola MD Primary Care Provider [phone] Reason for Visit * Reason Comments Face Encounter Details Date Type Department Care Team (Latest Contact Info) Description 03/05/2017 1:15 PM DATA CONVERSION DEVELOPER - 03/05/2017 1:51 PM DATA CONVERSION DEVELOPER Hospital Encounter [address] [address] Pilar Calvillo, GABRIELLE Face Discharge Disposition: Home or Self Care (Routine [...] Sign Reading Time Taken Comments Blood Pressure 122/75 03/05/2017 1:17 PM DATA CONVERSION DEVELOPER Pulse 97 03/05/2017 1:17 PM DATA CONVERSION DEVELOPER Temperature 36.9 ??C (98.5 ??F) 03/05/2017 1:17 PM CS T Respiratory Rate 18 03/05/2017 1:17 PM DATA CONVERSION DEVELOPER Oxygen Saturation 100% 03/05/2017 1:17 PM DATA CONVERSION DEVELOPER Inhaled Oxygen Concentration - - Weight 72.6 kg (160 lb) 03/05/2017 1:17 PM DATA CONVERSION DEVELOPER Height 165.1 cm (5' 5 ) 03/05/2017 1:17 PM DATA CONVERSION DEVELOPER Body Mass Index 26.63 03/05/2017 1:17 PM DATA CONVERSION DEVELOPER documented in this encounter Discharge Instructions * Discharge Instructions* Pilar Hightower Calvillo, FLOOR FINISHER - 03/05/2017 1:46 PM DATA CONVERSION DEVELOPER Images from the original note were not included. Acne The Basics Written by the doctors and editors at [facility] What is acne???--??Acne is the medical term for pimples. Pimples happen when pores get clogged withdead skin and oil, and bacteria build up. Then the skin gets inflamed and can turn red or swell. Is there anything I can do on my own to reduce acne???--??Yes. The way you take care of your skin has a big effect on your acne. Here's what you should do: ?Wash your face no more than twice a day. Use warm - not hot - water, and do not use harsh soaps. Instead, use a gentle non-soap facial skin cleanser. Do not scrub your face, because that can make acne worse and damage the skin. ?Do not pick or squeeze pimples. This can make acne worse and damage the skin. Plus it can lead to infections. ?Avoid oil-based make-up and skin products. They can make acne worse. If you use a moisturizer for your face, a moisturizer labeled as non-comedogenic is often best. Can I treat my own acne???--??If you have mild acne, you can try non- prescription acne products. You might even try using more than 1 product at once. That might be more effective than using 1 singleproduct alone. In rare cases, people have a severe allergic reaction to acne products, so for the first 3 days, try them on just a small area. If you do not improve after 3 months, or if you have moderate or severe acne, ask your doctor or nurse for advice. How is acne treated???--??Doctors can treat acne using different types of medicines. Sometimes doctors suggest trying more than 1 medicine at once. There is no 1 medicine or combination of medicines that works best for everyone. Instead, people often need to try different medicines until they find what works best for them. Most acne medicines require a prescription. They include: ?Retinoids - Retinoids are medicines that help keep your pores unclogged. Most retinoids are available in a gel or cream that you put on your skin. Examples of prescription retinoids include tretinoin (brand name: Retin-A), adapalene (brand name: Differin), and tazarotene (brand name: Tazorac). Oneform of adapalene gel can also be bought without a prescription. These medicines can also help improve dark spots on the skin caused by acne. ?Products that help skin shed - Products such salicylic acid and glycolic acid help remove layers of skin. They can reduce acne by helping to unclog pores. ?Antibiotics you put on the skin - Antibiotics reduce acne by killing the bacteria inside pimples. They also help bring down inflammation. These medicines include erythromycin, clindamycin, dapsone (brand name: Aczone), and others. ?Azelaic acid- Azelaic acid helps keep pores unclogged and can kill bacteria in pimples. Azelaic acid can also help to improve dark spots on the skin caused by acne. ?Benzoyl peroxide - Benzoyl peroxide kills bacteria and helps to unclog pores. Benzoyl peroxide is also available without a prescription. ?Antibiotics you take in a pill - Antibiotic pills work for the same reasons antibiotic gels or lotions work. But they tend to be stronger and can cause unpleasant side effects. ? control pills - Some of the skin reactions that lead to acne are controlled by hormones. Forthis reason, control pills can sometimes help with acne. ?Isotretinoin pills (sample brand names: Amnesteem, Absorica, Claravis, Sotret) - One of the retinoid medicines comes in pill form. This medicine, called isotretinoin, is very effective against severe acne. But it can also cause serious side effects and defects. Women who want to take isotretinoin must follow very strict safety rules to avoid . (This medicine used to be sold under the brand name Accutane, but that brand name is no longer available in the [place].) What if I want to get ???--??If you want to get , talk to your doctor before you start trying to get . Many of the medicines used to treat acne are not safe for a growing baby. Will my diet affect my acne???--??Some studies have found that acne seems to be more common in people who drink a lot of milk. But more research is needed to understand the link between the types of foods people eat and acne. All topics are updated as new evidence becomes available and our peer review process is complete. This topic retrieved from [employer] on: Aug 22, 2016. Topic 63802 Version 12.0 Release: 25.3 - C25.159 ?2017??[employer]??All rights reserved. picture 1: Inflammatory acne Acne can cause the skin to become inflamed, turn red, and swell. Reproduced with permission from: Roberta TATE MD. Roberta's Photoguide of Common Skin Disorders,2nd Edition. [place]: [employer], 2003. Copyright ?? 2002 [employer]. Graphic 49484 Version 4.0 Consumer Information Use and Disclaimer This information [...] or not to accept your health care provider's advice, instructions or recommendations. Only your health care provider has the knowledge and training to provide advice that is right for you.The use of [employer] content is governed by the [employer] Terms of Use. ??2017 [employer]. All rights reserved. Copyright ?2017??[employer]??All rights reserved. CONVERSION DEVELOPER documented in this encounter Medications at Time of Discharge mupirocin 2 % ointment Apply topically 3 (three) times daily for 7 days. 22 g 03/05/2017 8 sulfamethoxazole -trimethoprim (BACTRIM DS) 800-160 MG tablet Take 1 tablet by mouth 2 (two) times daily for 10 days. 20 tablet 03/05/2017 8 documented as of this encounter ED Notes * Pilar Campbell Calvillo, GABRIELLE - 03/05/2017 1:42 PM CST Images from the original note were not included. Chief Complaint Chief Complaint Patient presents with ??? Face History of Present Illness HPI Comments: 27 yo F presents with c/o painful pimple to L side of bright of nose for 1 wk. Statesit's causing pain to eye when blinking. Applying warm compress and pimple not going away. No fever/chills. All systems reviewed and negative except as noted above. History provided by: Patient clinical engineer used: No Medical History ALLERGIES: Allergies Allergen Reactions ??? [...] use Review of Systems Review of Systems Skin: Positive for wound. All other systems reviewed and are negative. Physical Exam Filed Vitals: 03/05/17 1317 BP: 122/75 Pulse: 97 Resp: 18 Temp: 98.5 ??F (36.9 ??C) TempSrc: Oral SpO2: 100% Weight: 72.6 kg (160 lb) Height: 5' 5 (1.651 m) Physical Exam Constitutional: She is oriented to person, place, and time. Vital signs are normal. She appears well-developed and well-nourished. She is active. Non-toxic appearance. She does not have a sickly appearance. She does not appear ill. No distress. HENT: Head: Normocephalic. Nose: Eyes: Conjunctivae and EOM are normal. Pupils are equal, round, and reactive to light. Cardiovascular: Normal rate. Pulmonary/Chest: Effort normal. Musculoskeletal: Normal range of motion. Neurological: She is alert and oriented to person, place, and time. Skin: Skin is warm and dry. Psychiatric: She has a normal mood and affect. Her behavior is normal. Judgment and thought contentnormal. Nursing note and vitals reviewed. Diagnostic Studies / Procedures ELECTROCARDIOGRAMS: No results found for this visit on 03/05/17. LABORATORY STUDIES: No results found for this visit on 03/05/17. IMAGING STUDIES No orders to display ED Course / Medical Decision Making Clinical Impression None Disposition: Data Unavailable Pilar Calvillo NP 03/05/17 1345 CONVERSION DEVELOPER * Sylvia Reno RN - 03/05/2017 1:19 PM CST Pt to UC with c/o bump to left side bridge of nose. Reports having this for one week. Wakes up pt up at night with pain. Denies drainage. CONVERSION DEVELOPER documented in this encounter Plan of Treatment Not on file documented as of this encounter Visit Diagnoses Diagnosis Acne- Primary Other acne documented in this encounter Care Teams Fence Installer Helper Relationship Specialty Start Date End Date Kit Arriola MD [address] [address] PCP - General 12/01/15 07/13/20 documented as of this encounter
--- OUTSIDE RECORDS SUMMARY | 2024-02-17 13:39 | XMS_ITS | Encounter Summary ---
Author Organization [facility] Address [address] [facility] [place] [address] [place] [address] Care Team Providers Care Orthodontist Small Business Owner Name Role Phone Kit Arriola MD Primary Care Provider [phone] Encounter Details Date Type Department Care Team (Latest Contact Info) Description 08/14/2018 11:40 AM CDT - 08/14/2018 12:21 PM CDT Hospital Encounter [facility] [place], [place] [id number] Pascual Soriano MD [facility] [place], [place] [id number] Discharge Disposition: Home or Self Care (Routine [...] Name Priority Date/Time Associated Diagnosis Comments XR HYSTEROSALPINGOGRAM Routine 9 2:50 PM CDT Infertility, female documented in this encounter Results * XR HYSTEROSALPINGOGRAM (08/14/2018 2:50 PM CDT) Anatomical Region Laterality Modality Pelvis Fluoroscopy, Rad iographic Imaging, Radiographic Imaging 08/14/2018 3:08 PM CDT Impressions 08/14/2018 3:11 PM CDT IMPRESSION: 1. Bilateral tubal patency. 2. Normal endometrial cavity contour. Narrative 08/14/2018 3:11 PM CDT Examination: Hysterosalpingogram. Exam time: 1433 hours. Clinical history: Infertility. Comparison: None. Technique: Fluoroscopic monitoring. 36 seconds of fluoroscopy time was utilized. Single cine series was captured. Findings: The procedure was performed by Dr. Soriano. The contour of the endometrial cavity is normal. The fallopian tubes, as visualized, appear unremarkable. Bilateral tubal patency is documented by spill of contrast into the peritoneal cavity. Procedure Note Slim Narvaez MD - 08/14/2018 Examination: Hysterosalpingogram. Exam time: 1433 hours. Clinical history: Infertility. Comparison: None. Technique: Fluoroscopic monitoring. 36 seconds of fluoroscopy time was utilized. Single cine series was captured. Findings: The procedure was performed by Dr. Soriano. The contour of the endometrial cavity is normal. The fallopian tubes, as visualized, appear unremarkable. Bilateral tubal patency is documentedby spill of contrast into the peritoneal cavity. IMPRESSION: 1. Bilateral tubal patency. 2. Normal endometrial cavity contour. Pascual Soriano MD FLUOROSCOPY Final Result documented in this encounter Visit Diagnoses Diagnosis Infertility, female Female infertility of unspecified origin documented in this encounter Administered Medications Inactive Administered Medications - up to 3 most recent administrations Medication Order MAR Action Action Date Dose Rate Site iopamidol (ISOVUE-300) 61 % injection 30 mL 30 mL, Other, IMG once as needed, Contrast, 1 dose, Starting on Sun08/14/18 at 1450, Until Sun08/14/18 at 1451 Given 08/14/2018 2:51 PM CDT 30 mLs documented in this encounter Care Teams Orthodontist Small Business Owner Relationship Specialty Start Date End Date Kit Arriola MD [address] [address] PCP - General 12/01/15 07/13/20 documented as of this encounter
--- OUTSIDE RECORDS SUMMARY | 2024-02-17 13:39 | XMS_ITS | Encounter Summary ---
Author Organization [facility] Address [facility] [facility] [place] [address] [place] [address] Care Team Providers Care Mentally Retarded Teacher Name Role Phone Rdaha Arriola MD Primary Care Provider [phone] Reason for Visit * Reason Comments Sore Throat Encounter Details Date Type Department Care Team (Latest Contact Info) Description 12/19/2018 8:19 AM GLOBAL MARKETING SPECIALIST - 12/19/2018 8:53 AM GLOBAL MARKETING SPECIALIST Hospital Encounter [id number] [place] [address] Suhail Ann, QUOC Sore Throat Discharge Disposition: Home or Self [...] Sign Reading Time Taken Comments Blood Pressure 115/90 12/19/2018 8:26 AM GLOBAL MARKETING SPECIALIST Pulse 109 12/19/2018 8:26 AM GLOBAL MARKETING SPECIALIST Temperature 36.9 ??C (98.5 ??F) 12/19/2018 8:26 AM CS T Respiratory Rate 16 12/19/2018 8:26 AM GLOBAL MARKETING SPECIALIST Oxygen Saturation 100% 12/19/2018 8:26 AM GLOBAL MARKETING SPECIALIST Inhaled Oxygen Concentration - - Weight 69.4 kg (153 lb) 12/19/2018 8:26 AM GLOBAL MARKETING SPECIALIST Height 165.1 cm (5' 5 ) 12/19/2018 8:26 AM GLOBAL MARKETING SPECIALIST Body Mass Index 25.46 12/19/2018 8:26 AM GLOBAL MARKETING SPECIALIST documented in this encounter Discharge Instructions * Attachments The following attachments cannot be sent through Care Everywhere. * Strep Throat Discharge Instructions (Dominican) documented in this encounter Medications at Time of Discharge amoxicillin-clavu lanate (AUGMENTIN) 875-125 MG tablet Take 1 tablet (875 mg total) by mouth 2 (two) times daily for 10 days. 20 tablet 12/19/2018 12/29/2018 documented as of this encounter ED Notes * Macey Moreau RN - 12/19/2018 8:22 AM CST AMB TO [facility], C/O SORE THROAT X 2 DAYS, FEVER UP TO 101. TOOK TYLENOL AT 0600. PPS 11/14. NO NVD AL MARKETING SPECIALIST * Suhail Ann PA-C - 12/19/2018 8:[address] [facility] History of Present Illness CC: Sore Throat , HPI: Roxana Amos is a pleasant 28-year-old female with significant past medical history ofPCOS, kidney stones, ectopic who presents with 2-day onset of progressively worsening sore throat with subjective fevers T-max 101. Patient states increasingly more difficult to eat or drink due to pain. Pain is described as a scratchy sharp 10 out of 10 pain. Patient denies associated hea dache dizziness change in vision neck pain stiffness nausea vomiting runny nose earaches cough chest pain shortness of breath diarrhea or change in bowel or bladder baseline joint pain rashes new or worsening edema or other infectious/constitutional symptoms ? Pain location: Sore throat Duration/Timin days Modifying factors/Context: See HPI Severity: 11/14 Treatments initiated by patient: Tylenol Relevant Medical History Past Medical History: Past Medical History: Diagnosis Date ??? Ectopic ??? Kidney stones ??? PCOS (polycystic ovarian syndrome) on Metformin Negative unless noted above Past Surgical History: Past Surgical History: Procedure Laterality Date ??? CHOLECYSTECTOMY ??? ECTOPIC Negative unless noted above Med List: No current facility-administered medications on file prior to encounter. No current outpatient medications on file prior to encounter. Med list reviewed and attached to chart Allergies: Review of patient's allergies indicates: Latex and Morphine Immunizations: There is no immunization history on file for this patient. Not applicable unless noted above Family Hx: Family History Problem Relation Name Age of Onset ??? Stroke Father ??? None Mother Negative unless noted above Social Hx: Social History Socioeconomic History ??? Marital status: [...] file Gets together: Not on file Attends taoist service: Not on file Active member of [...] Social History Narrative ??? Not on file History source: Patient, nursing notes, and EMS notes when applicable, unless noted above Hx/PE/ROS limited by: ? Review of Systems Constitutional: +fevers or chills Eye/ENT/Mouth: No visual changes, no epistaxis, patient has sore throat per HPI Cardiovascular: no palpitations, no chest pain Respiratory: no stridor, no shortness of breath, no cough Gastrointestinal: No nausea, vomiting or diarrhea Genitourinary: No dysuria, no hematuria Skin: No acute rashes or edema Musculoskeletal: No acute joint swelling or decreased range of motion Neurological: No headache, no new numbness Psychiatric: No mood changes Physical Exam Constitutional: well developed, well nourished, no acute distress Eye: normal conjunctiva, pupils equal and reactive ENT/Mouth: external ears clear, the oropharynx is mildly erythematous with 3+ bilateral tonsillar edema and erythema without gross exudate, no sublingual or submandibular swelling Negative bilateral anterior lymphadenopathy GI: abdomen soft/non-tender, no masses noted : deferred Skin: dry, no rashes noted Musculoskeletal/Back: no ttp x 4 ext, back nontender Extremities: No cyanosis, no edema. DP pulses 2+ bilateral Neurological: CN II-XII no deficits, upper and lower extremity strength 5/5 bilateral Psych: Pt is alert and oriented x3 w good recall and normal affect Rectal: Deferred Studies and Interpretation Vitals: Filed Vitals: 12/19/18 0826 BP: 115/90 Pulse: 109 Resp: 16 Temp: 98.5 ??F (36.9 ??C) TempSrc: Oral SpO2: 100% Weight: 69.4 kg (153 lb) Height: 5' 5 (1.651 m) Vitals reviewed: WNL Pulse Ox Interpretation: Saturation: 100 Oxygen Delivery: Room air Interpretation: No hypoxia at this time. Rhythm strip interpretation: Sinus tachycardia rhythm, no arrhythmia noted. Ventricular rate (bpm):109 ECG Note: No results found for this visit on 12/19/18. Pertinent Labs: No results found for this visit on 12/19/18. Images: No orders to display ? All imaging and laboratory results independently reviewed by Suhail Ann PA-C. Medical Decision Making and ED Course Differential Dx: DDx includes: Pharyngitis, strep pharyngitis, Cisco angina, Lemierre's syndrome, retropharyngeal or prevertebral abscess, odontogenic infection, viral syndrome, tonsillitis , peritonsillar abscess Management: Management options include but not limited to : Throat culture, exam medications given.Case discussed with other ED attending physician / YAMIL: Data reviewed: All current, pertinent and timely studies (laboratory, imaging, and procedures) wereordered and results reviewed by Suhail Ann PA-C unless otherwise noted. Triage notes and available nursing notes reviewed. Previous medical record reviewed when available. Repeat vital signs reviewed. PCP: RADHA ARRIOLA MD Note: No sign of Cisco's angina, no clinical sign of prevertebral or retropharyngeal abscess, patient tolerating his own secretions no airway compromise Centor Score (Modified/McIsaac) for Strep Pharyngitis Age range 3-14 years +1 ? 15-44 years 0 ? >45 years -1 Exudate or swelling on tonsils No 0 YES +1 Tender/swollen anterior cervical lymph nodes No 0 YES +1 Fever (Temperature > 38??C, 100.4??F) No 0 YES +1 Cough YES 0 No +1 Patient Total: Interpretation 0 points: 1% - 2.5% likelihood of strep, No further testing nor antibiotics. 1 points: 5% - 10% likelihood of strep, No further testing nor antibiotics. 2 points: 11% - 17% likelihood of strep, Optional rapid strep testing and/or culture. 3 points: 28% - 35% likelihood of strep, Consider rapid strep testing and/or culture. 4 points: 51% - 53% likelihood of strep, Consider rapid strep testing and/or culture. Note: IDSA and PORTER no longer recommend empiric treatment for strep based on symptomatology alone. Steroids and NSAIDS improve symptoms; antibiotics are often indicated in streptococcal pharyngitis,but do not prevent the suppurative complications of it like peritonsillar abscess. Plan: labs, imaging, symptom control, consult Medications administered in triage/NETWORK OPERATIONS CENTER TECHNICIAN: Tylenol 0600 ED Course Medications Given Medications - No data to display Meds to Start There are no discharge medications for this patient. MDM:The patient presents to the emergency department with 2 days progressively worsening sore throat with difficulty swallowing and subjective fevers at home 101 T-max -the patient is hemodynamically stable, with normal vitals without fever with mild tachycardia thatresolved with rest. -on physical exam the patient is found to have oropharynx is mildly erythematous with 3+ bilateral tonsillar edema and erythema without gross exudate, no sublingual or submandibular swelling Negative bilateral anterior lymphadenopathy -on ER evaluation the patient is found to have: Positive rapid strep test -Imaging shows: I do not feel that emergent imaging will be contributory at this time. -given the patient's age, presentation, relatively benign physical exam normal vitals lack of concerning systemic symptoms or peritonsillar abscess, plan to discharge patient home with Augmentin, ENTfollow-up as the patient states that she gets frequent strep infections plan to give referral for possible elective tonsillectomy -I have spent considerable time counseling the patient on the nature of their pain/symptoms, their results, what to expect and how to manage their symptoms. I have also given my typical strict returnprecautions and let them know that are always welcome to call or return to the ED if their symptomsare not improving or they develop new or progressive symptoms. I ensured understanding of the instru ctions utilizing teach-back. All questions and concerns presented at the time of discharge were answered. Dispo: home Clinical Impression: 1.) strep pharyngitis Note: This medical chart was created with the aid of dictation software, thus there may be some word substitutions or errors. Suhail Ann PA-C 12/19/18 0843 Cosigned by Jun Biswas MD at 12/19/2018 10:06 AM GLOBAL MARKETING SPECIALIST AL MARKETING SPECIALIST AL MARKETING SPECIALIST documented in this encounter Plan of Treatment Not on file documented as of this encounter Procedures Procedure Name Priority Date/Time Associated Diagnosis Comments RAPID STREP A STAT 12/19/2018 8:31 AM GLOBAL MARKETING SPECIALIST documented in this encounter Results * (ABNORMAL) RAPID STREP A (12/19/2018 8:31 AM GLOBAL MARKETING SPECIALIST) SPECIMEN TYPE THROAT 12/19/2018 8:31 AM GLOBAL MARKETING SPECIALIST [facility] RAPID STREP TEST POSITIVE(A) NEGATIVE 12/19/2018 8:41 AM GLOBAL MARKETING SPECIALIST [facility] STRUCTURE OF ANTERIOR PORTION OF NECK / Unknown 12/19/2018 8:31 AM GLOBAL MARKETING SPECIALIST us Suhail Ann PA-C MICROBIOLOGY - GENERAL HALLE DEMPSEY Final Result [id number] [place] [address], documented in this encounter Visit Diagnoses Diagnosis Streptococcal pharyngitis- Primary Streptococcal sore throat documented in this encounter Administered Medications Inactive Administered Medications - up to 3 most recent administrations Medication Order MAR Action Action Date Dose Rate Site dexamethasone PF (DECADRON) injection 5 mg 5 mg, Intramuscular, Once, 1 dose, On Amanda 12/19/18 at 0900, Administer slowly over 1-4 minutes. Given 12/19/2018 8:37 AM GLOBAL MARKETING SPECIALIST 5 mg Left Anterior Thigh documented in this encounter Active and Recently Administered Medications Times are shown in GLOBAL MARKETING SPECIALIST. Scheduled Medication Order 12/17/2018 12/18/2018 12/19/2018 dexamethasone PF (DECADRON) injection 5 mg (COMPLETED) 5 mg, Intramuscular, Once, 1 dose, On Amanda 12/19/18 at 0900, Administer slowly over 1-4 minutes. 0837 (Given - Provid er: Macey Moreau RN) documented in this encounter Care Teams Mentally Retarded Teacher Relationship Specialty Start Date End Date Radha Arriola MD [address] [address] PCP - General 12/01/15 07/13/20 documented as of this encounter
--- OUTSIDE RECORDS SUMMARY | 2024-02-17 13:39 | XMS_ITS | Encounter Summary ---
Author Organization [facility] [email or web address] Address [address] [place] [address] Care Team Providers Care Hotel Operations Manager Name Role Phone Unavailable Primary Care Provider Unavailabl e Reason for Visit * Reason Comments Covid-19 Home Management Encounter Details Date Type Department Care Team (Late st Contact Info) Description 08/14/2021 4:10 PM CDT Video Visit [facility] [address] [place] [phone] Scarlett Self, RUTH [address] [place] [address] COVID Social History Tobacco Use Types Packs/Day Years Used Date Smoking Tobacco: Never Assessed PHQ-2 Answer Date Recorded PHQ2 TOTAL SCORE 0 08/14/2021 Sex and Gender Information Value Date Recorded Sex Assigned at Female 08/14/2021 4:02 PM CDT Gender Identity Female 08/14/2021 4:02 PM CDT Sexual Orientation Not on file documented as of this encounter Patient Instructions * Patient Instructions* Scarlett Self APRN-CNP - 08/14/2021 4:48 PM CDT You tested POSITIVE for COVID-19: Stay home for 5 days. If you have no symptoms or your symptoms are resolving after 5 days, you can leave your house. Continue to wear a mask around others for 5 additional days after ending quarantine. If you have a fever, continue to stay home until your fever resolves. You do NOT need to be retested for COVID-19 once your symptoms resolve to prove a negative status. Aim to drink about half your body weight in ounces each day to stay well hydrated. There are many OTC medications and supportive care measures you can try to treat your symptoms until your symptoms resolve. -prescribed magic mouthwash to assist with reducing pain in throat -Tylenol or Ibuprofen for aches, pains. Take per package directions -Antihistamines like Claritin or Benadryl as needed for drainage. Take per package directions -mucinex to assist with thinning secretions. -Delsym as needed for coughing. Follow package directions -Frequent cough drops and lozenges -Increase fluids, especially decaffeinated ones -Sleep with head of bed raised to promote drainage -Avoid spreading the virus by remaining at home and away from others until you are fever-free (temperature below 100) for 24 hours. Good handwashing and covering your mouth when coughing are also important. You should go the Emergency Room with any of the following symptoms: -Fever >103 -Difficulty breathing -Confusion or difficulty to arouse -Persistent chest pressure or pain RUTH Monroy documented in this encounter Progress Notes * Scarlett Self APRN-CNP - 08/14/2021 4:22 PM CDT [facility] [employer] [facility] Roxana Briseno is a 31 year old female who presents for evaluation: Chief Complaint Patient presents with ??? Covid-19 Home Management Primary Care Physician is No primary care provider on file.. SUBJECTIVE: Patient presents to [facility] [employer] [facility] today after testing positive for COVID at home. Patient would like to discuss next steps and home care options. ?? Covid Positive Test:??08/14/21 Symptoms Started:??08/12/21 Symptoms Include:??fever tmax 100, chills, sweats, decreased appetite, sore throat, congestion, cough, nausea, headaches, body aches Recent Travel:??no Medical history positive for HTN, Diabetes, Immunocompromised condition:??no Vaccine Status:??fully vaccinated?? OTC support used thus far:??tylenol and ibuprofen Patient denies any known history of liver or kidney disease/impairment GFR:??118 COVID Risk Score:??5 Patient denies chest pain, shortness of breath, wheezing, abdominal pain, back pain, V/D. Patient is requesting note for work. No past medical history on file. There is no problem list on file for this patient. No current outpatient medications on file prior to visit. No current facility-administered medications on file prior to visit. Past Surgical History: Procedure Laterality Date ??? MRI BREAST LEFT BIOPSY Left 02/11/2021 MRI BREAST LEFT BIOPSY 02/11/2021 [facility] MRI Social History Socioeconomic History ??? Marital status: Spouse name: Not on file ??? Number of children: Not on file ??? Years of education: Not on file ??? Highest education level: Not on file Occupational History ??? Not on file Tobacco Use ??? Smoking status: Not on file ??? Smokeless tobacco: Not on file Substance and Sexual Activity ??? Alcohol use: Not on file ??? Drug use: Not on file ??? Sexual activity: Not on file Other Topics Concern ??? Not on file Social History Narrative ??? Not on file Social Determinants of Health Financial Resource Strain: Not on file Food Insecurity: Not on file Transportation Needs: Not on file Physical Activity: Not on file Stress: Not on file Social Connections: Not on file Intimate Partner Violence: Not on file Housing Stability: Not on file No family history on file. Current Outpatient Medications Medication Sig Dispense Refill ??? diphenhydramine/maalox/lidocaine visc 1:1:1 (MAGIC MOUTHWASH) suspension Swish and swallow 10 mL every 6 hours as needed 240 mL 0 No current facility-administered medications for this visit. Allergies Allergen Reactions ??? Latex Urticaria and Itching Hives Hives Hives ??? Morphine Urticaria and Itching Itching Itching Itching ??? Tramadol Itching ??? Vancomycin Urticaria Itching Itching Itching REVIEW OF SYSTEMS: Review of Systems Constitutional: Positive for chills, diaphoresis, fever (tmax 100) and malaise/fatigue. HENT: Positive for congestion and sore throat. Negative for ear discharge, ear pain and sinus pain. Eyes: Negative. Respiratory: Positive for cough. Negative for shortness of breath and wheezing. Cardiovascular: Negative for chest pain. Gastrointestinal: Positive for nausea. Negative for abdominal pain, diarrhea and vomiting. Musculoskeletal: Positive for myalgias. Negative for joint pain. Skin: Negative. Neurological: Positive for headaches. Psychiatric/Behavioral: Negative. OBJECTIVE: General appearance: alert, pleasant and in no distress. There were no vitals taken for this visit. Unable to obtain vitals due to this being a virtual visit. Physical Exam Constitutional: General: She is not in acute distress. Appearance: Normal appearance. She is normal weight. HENT: Head: Normocephalic and atraumatic. Comments: Unable to fully assess HEENT due to this being a virtual visit. Cardiovascular: Comments: Unable to fully assess due to this being a virtual visit. Pulmonary: Effort: Pulmonary effort is normal. No respiratory distress. Comments: Unable to fully assess due to this being a virtual visit. Patient breathing comfortably, no acute distress Neurological: General: No focal deficit present. Mental Status: She is alert and oriented to person, place, and time. Psychiatric: Mood and Affect: Mood normal. Behavior: Behavior normal. Thought Content: Thought content normal. Judgment: Judgment normal. No results found for this or any previous visit (from the past 24 hour(s)). ASSESSMENT: Encounter Diagnosis Name Primary? COVID Yes PLAN: Orders Placed This Encounter ??? diphenhydramine/maalox/lidocaine visc 1:1:1 (MAGIC MOUTHWASH) suspension Sig: Swish and swallow 10 mL every 6 hours as needed Dispense: 240 mL Refill: 0 You tested POSITIVE for COVID-19: ??? Stay home for 5 days. ??? If you have no symptoms or your symptoms are resolving after 5 days, you can leave your house. ??? Continue to wear a mask around others for 5 additional days after ending quarantine. ??? If you have a fever, continue to stay home until your fever resolves. ??? You do NOT need to be retested for COVID-19 once your symptoms resolve to prove a negative status. Aim to drink about half your body weight in ounces each day to stay well hydrated. There are many OTC medications and supportive care measures you can try to treat your symptoms until your symptoms resolve. -prescribed magic mouthwash to assist with reducing pain in throat -Tylenol or Ibuprofen for aches, pains. Take per package directions -Antihistamines like Claritin or Benadryl as needed for drainage. Take per package directions -mucinex to assist with thinning secretions. -Delsym as needed for coughing. Follow package directions -Frequent cough drops and lozenges -Increase fluids, especially decaffeinated ones -Sleep with head of bed raised to promote drainage -Avoid spreading the virus by remaining at home and away from others until you are fever-free (temperature below 100) for 24 hours. Good handwashing and covering your mouth when coughing are also important. You should go the Emergency Room with any of the following symptoms: -Fever >103 -Difficulty breathing -Confusion or difficulty to arouse -Persistent chest pressure or pain RUTH Monroy I have spent a total of 11minutes. Time was spent reviewing medical history, performing physical exam, documenting, counseling/educating, reviewing plan of care (list additional services rendered) documented in this encounter Miscellaneous Notes * Clinical References Scarlett Desai APRN-CNP - 08/14/2021 4:47 PM CDT Diagnosis and Treatment of Coronavirus - Video Watch this video to learn what to do if you have symptoms of COVID-19 or if you are caring for someone who is sick. To view the video go to this web address: [email or web address] Or, scan this QR code with your smart phone ?? [facility] * Clinical References Scarlett Desai APRN-CNP - 08/14/2021 4:47 PM CDT [address] Coronavirus Disease 2019 (COVID-19): Overview Coronavirus disease 2019 (COVID-19) is an illness that infects the lungs. It's caused by a type of coronavirus. The virus is called SARS-CoV-2. There are many types of coronaviruses. They are a common cause of colds and bronchitis. They can cause a lung infection called pneumonia. Symptoms can range from mild to severe. Some people have no symptoms. These types of viruses are also found in some animals. Viruses change (mutate) all the time. The changes lead to different forms of a virus. These are called variants. COVID-19 variants may spread more easily from person to person. They may cause milder symptoms. Or they may cause more severe symptoms. The virus spreads and infects people easily. It can infect a person more easily if they are not immune to it. The virus most often spreads through droplets of fluid that a person coughs or sneezes into the air. In some cases, you can get it from touching a surface with the virus on it and then touching your eyes, nose, or mouth. To help prevent spreading the infection, wash your hands often, or use an alcohol-based hand transfer pumper. To learn more For the latest from the CDC: ?? Go to the CDC website ?? Call 374-EXK-LFIB (818-323-9737) What are the symptoms of COVID-19? Some people have no symptoms. Some have mild symptoms. Others may have severe symptoms. This variesfrom person to person. Symptoms may start 2 to 14 days after contact with the virus. They can include: ?? Fever ?? Chills ?? Coughing ?? Trouble breathing or feeling short of breath ?? Sore throat ?? Stuffy or runny nose ?? Headache ?? Body aches ?? Tiredness ?? Nausea, vomiting, diarrhea, or belly pain ?? New loss of sense of smell or taste Check your symptoms with the CDC?s Coronavirus Self-Biology Lecturer. What are possible complications of COVID-19? The virus can cause an infection in the lungs. This is called pneumonia. This can lead to in some cases. Experts are still learning more about COVID-19 problems. Problems may include: ?? Low blood pressure ?? Kidney failure ?? Inflammation of the brain or heart ?? Rashes Some people are at higher risk for problems. This includes: ?? Older adults ?? People with heart or lung disease ?? People with diabetes or kidney disease ?? People with health conditions that limit the immune system ?? People who take medicines that limit the immune system Rarely, a child may have a severe complication. This is called multisystem inflammatory syndrome inchildren (MIS-C). MIS-C seems to be like Kawasaki disease. This is a rare illness. It causes swelling of blood vessels and body organs. MIS can also happen in adults. But this is less common. How is COVID-19 diagnosed? Your healthcare provider will ask: ?? What symptoms you have ?? Where you live ?? If you?ve traveled recently ?? If you?ve had contact with sick people ?? If you are vaccinated against COVID-19 ?? If you have had COVID-19 Know your testing options with the CDC's COVID-19 Viral Testing Tool. You may have 1 of these testsfor COVID-19: ?? Viral (molecular) test. You may also hear this called a PCR or RT-PCR test. Viral tests are veryaccurate. A viral test looks for the genetic material (RNA) of the SARS-CoV-2 virus. There are a few ways to do this. A swab may be wiped inside your nose or throat. Or a long swab may be put into your nose down to the back of your throat. Or a sample of your saliva may be taken. Your test results may be back in 45 minutes to a few hours. This depends on the type of test. Some tests must be sent to a lab. These can take several days for the results. You can now get test kits to use at home. Some of these need a prescription. Follow the instructions in the kit closely if you use a home kit. Some kits show results quickly at home. Others must be sent to a lab for the results. ?? Antigen test. This can find proteins from the SARS-CoV-2 virus. A swab may be wiped inside your nose or throat. Or a long swab may be put into your nose down to the back of your throat. Some results are back within 15 to 60 minutes. This depends on the type of test. Positive results are very accurate. But false positive results can happen. And the results can be negative even in people with COVID-19. Antigen tests are more likely to miss a COVID-19 infection than a viral (molecular) test. You may need to have a viral test if your antigen test is negative but you have symptoms of COVID-19. ?? Breath test. This rapid test is not widely available at this time. It finds SARS-CoV-2 infectionin the breath. The test is done at providers' offices, hospitals, and mobile testing sites. You may have other tests if your provider thinks or confirms that you have COVID-19. These tests may include: ?? Antibody blood test. This type of test can show if you had the virus in the past. It shows antibodies for the virus in the blood. The accuracy of these tests varies. And they are not available everywhere. An antibody test may not show if you have an infection right now. This is because it can take up to a few weeks for your body to make antibodies. None of the antibody tests can yet be used totell if a person is immune to the virus. ?? Sputum culture. If you have a wet cough, you may be asked to cough up a bit of mucus (sputum) from your lungs. This is tested for the virus. It may be tested for pneumonia. ?? Imaging tests. You may have a chest X-ray or CT scan. Can you get COVID-19 again? Yes, you can get COVID-19 more than once. You may not have immunity. You could have lost the immunity. Or you may get COVID-19 from a different strain (variant) of the virus that you are not immune to. But the COVID-19 vaccine helps lower the risk for COVID-19. Vaccines for COVID-19 The FDA and CDC advise vaccines to help prevent COVID-19. The vaccines can also make the illness less severe. It can keep you from needing to go to the hospital. And it can prevent the spread of the virus to others. No vaccine is 100% effective at preventing an illness. But getting a vaccine is important. COVID-19 vaccines are available for people as young as 6 months old. or people can have the vaccine. Vaccines are given as a primary series.Boosters are given later to help with protection. The vaccines are given as a shot (injection) into the muscle. Ask your healthcare provider which vaccine is best for you and your family. There is a 1- dose vaccine. This is from [employer]. It's available for adults ages 18 and older. Pfizer and Moderna vaccines are available for people as young as 6 months old. They are given in several doses a few weeks apart. When you get the shot depends on your age and overall health. People with a weak immune system have other advice. COVID-19 vaccine booster shots People age 5 or older can get a COVID-19 booster shot. It's given a few months after their primary series. Boosters can help with protection against COVID-19 that may have decreased over time. Pfizerand Moderna vaccine boosters are preferred. The Ashok & Ashok (J&J vaccine) may be given in some cases. Booster advice varies by vaccine, age, health, and COVID-19 variants. Talk with your provider aboutyour risk and when to get a booster. How is COVID-19 treated? The best treatments right now are those to help your body while it fights the virus. This is calledsupportive care. It includes: ?? Rest.This helps your body fight the illness. ?? Fluids. Try to drink 6 to 8 glasses of fluids every day. Ask your provider which drinks are bestfor you. Don't have drinks with caffeine or alcohol. ?? Yhig-cpq-uapahzs (OTC) medicine. These are used to help ease pain and reduce fever. Ask your provider which OTC medicine is safe for you to use. Talk with your provider if you have confirmed COVID-19. You may qualify for medicines approved by the FDA to prevent severe COVID-19 infection. You may need to stay in the hospital for severe illness. Your care may include: ?? IV fluids. These are given through a vein. This helps to replace fluids in your body. ?? Oxygen. You may be given extra oxygen. Or you may be put on a breathing machine (ventilator). This is done so you get enough oxygen in your body. ?? Prone positioning. Your healthcare team may regularly turn you on your stomach. This is called prone positioning. It helps increase the amount of oxygen you get to your lungs. Follow their instructions on position changes while you're in the hospital and at home. ?? Antivirals and monoclonal antibodies. The FDA has approved certain antivirals and monoclonal antibodies to treat COVID-19. These treatments are for people who are more likely to get very sick. These treatments are not available for everyone. Talk with your healthcare provider to learn more. o Antivirals stop the SARS-CoV-2 virus from spreading in the body. o Monoclonal antibodies help the immune system fight the virus. ?? Steroids or other anti-inflammatory medicines. These are used to lessen the inflammation that some people with COVID-19 have. Inflammation can lead to more trouble breathing. It can cause other complications or . ?? COVID-19 convalescent plasma. Plasma is the liquid part of blood. People who had COVID-19 may beasked to donate plasma. This is called COVID-19 convalescent plasma. The plasma may have antibodies. These can help fight COVID-19 in people who are very ill with it. Check with your provider to see if this is an option in your area. Are you at risk for COVID-19? You are at risk for COVID-19 if any of these apply to you: ?? You live in or traveled to an area with cases of COVID-19 ?? You had close contact (within 6 feet) with someone who had COVID-19 COVID-19 may be spread by people who don't show symptoms. Last updated: 07/25/2021 Last Reviewed Date: 2020 ?? 3054-1979 [employer]. All rights reserved. This information is not intended as a substitute for professional medical care. Always follow your healthcare professional's instructions. documented in this encounter Plan of Treatment Not on file documented as of this encounter Visit Diagnoses Diagnosis COVID- Primary documented in this encounter
--- OUTSIDE RECORDS SUMMARY | 2024-02-17 13:39 | XMS_ITS | Encounter Summary ---
Author Organization [facility] Address [address] [place] [address] [place] [address] Care Team Providers Care Offset Proof Press Operator Name Role Phone Kit Arriola MD Primary Care Provider [phone] Reason for Visit * Reason Comments Abdominal Pain Headache Cough Vaginal Bleeding Encounter Details Date Type Department Care Team (Late st Contact Info) Description 09/06/2018 1:48 AM CDT - 09/06/2018 3:56 AM CDT Emergency [facility] [place] [address] Shamar Linton MD [address] [place] [address] Abdominal Pain; Headache; Cough; Vaginal Bleeding Discharge Disposition: Home or Self [...] Sign Reading Time Taken Comments Blood Pressure 114/81 09/06/2018 3:00 AM CDT Pulse 75 09/06/2018 2:45 AM CDT Temperature 36.8 ??C (98.3 ??F) 09/06/2018 12:38 AM C DT Respiratory Rate 16 09/06/2018 3:00 AM CDT Oxygen Saturation 100% 09/06/2018 3:00 AM CDT Inhaled Oxygen Concentration - - Weight 68.9 kg (152 lb) 09/06/2018 12:38 AM CDT Height 165.1 cm (5' 5 ) 09/06/2018 12:38 AM CDT Body Mass Index 25.29 09/06/2018 12:38 AM CDT documented in this encounter Discharge Instructions * Attachments The following attachments cannot be sent through Care Everywhere. * Headache, Adult (Maori) documented in this encounter Medications at Time of Discharge butalbital-acetamino phen-caffeine 50-300-40 MG capsule Take 1 capsule by mouth every 4 (four) hours as needed for Pain. 15 capsule 03/10/2018 9 ibuprofen 600 MG tablet Take 1 tablet (600 mg total) by mouth every 6 (six) hours as needed. 20 tablet 09/06/2018 9 ondansetron 4 MG disintegrating tablet Take 1 tablet (4 mg total) by mouth every 8 (eight) hours as needed for Nausea. 20 tablet 06/21/2018 9 documented as of this encounter ED Notes * Shamar Linton MD - 09/06/2018 3:02 AM CDT Emergency Department Note Chief Complaint Chief Complaint Patient presents with ??? Abdominal Pain ??? Headache ??? Cough ??? Vaginal Bleeding History of Present Illness History provided by: Patient seo coordinator used: No Abdominal Pain Headache Cough Vaginal Bleeding Roxana Amos is a 28-year-old female presenting with headache that began earlier tonight. The patient also reports she has been having heavy vaginal bleeding and abdominal cramping for 1 week. She reports expelling clots and tissue with her bleeding. Patient reports history of PCOS and ectopic . Medical History ALLERGIES: Allergies Allergen Reactions ??? Latex Hives ??? Morphine Hives and Itching MEDICATIONS: Prior to Admission medications Medication Sig Start Date End Date Taking? Authorizing Provider ibuprofen 600 MG tablet Take 1 tablet (600 mg total) by mouth every 6 (six) hours as needed. 09/06/18Yes Shamar Linton MD [id number]-zztdxftr 50-300-40 MG capsule Take 1 capsule by mouth every 4 (four) hoursas needed for Pain. 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 Eyes: Denies photophobia or discharge. HENT: Denies sore throat or ear pain. Respiratory: Denies cough or shortness of breath. Cardiovascular: Denies chest pain, palpitations or swelling. GI: See the HPI. Musculoskeletal: Denies back pain. Skin: Denies rash. Neurologic: See the HPI. Endocrine: Denies polyuria or polydypsia. Lymphatic: Denies swollen glands. Psychiatric: Denies depression, suicidal ideation or homicidal ideation. See HPI for further details. All systems negative except as marked. Physical Exam Filed Vitals: 09/06/18 0038 09/06/18 0245 09/06/18 0300 BP: 132/87 93/58 114/81 Pulse: 89 75 Resp: 18 16 16 Temp: 98.3 ??F (36.8 ??C) TempSrc: Temporal SpO2: 99% 100% 100% Weight: 68.9 kg (152 lb) Height: 5' 5 (1.651 m) Physical Exam Constitutional: Well developed, Well nourished, No acute distress, Non-toxic appearance. HEENT: Normocephalic, Atraumatic, Bilateral external ears normal, Oropharynx moist, Nose normal. Eyes: EOMI, Conjunctiva normal, No discharge. Neck- Normal range of motion, No tenderness, Supple, No stridor. Respiratory: Normal breath sounds, No respiratory distress. Cardiovascular: Normal heart rate, Normal rhythm GI: Soft, No tenderness, No masses, No pulsatile masses. Musculoskeletal: Intact distal pulses, No edema, No tenderness, Good range of motion in all major joints. No tenderness to palpation or major deformities noted. Skin: Warm, Dry, No erythema, No rash. Neurologic: Alert & oriented x 3, Normal motor function, Normal sensory function, No focal deficits noted. Psychiatric: Affect normal, Judgment normal, Mood normal. Medical decision making: Problem list: Vaginal bleeding, headache Differential: Anemia, migraine, tension, cluster headache Plan for labs, UA, urine Diagnostic Studies / Procedures ELECTROCARDIOGRAMS: No results found for this visit on 09/06/18. PULSE OX: SpO2: 99 % Interpretation: within normal limits. Rhythm strip interpreted by me: Normal sinus rhythm, rate of 75. No arrhythmias. LABORATORY STUDIES: Results for orders placed or performed during the hospital encounter of 09/06/18 CBC W/DIFF AUTOMATED Result Value Ref Range WBC 8.2 4.5 - 11.0 x10'3/uL RBC 4.20 4.20 - 5.40 x10'6/uL HGB 12.0 12.0 - 16.0 G/DL HCT 37.4 (L) 38.0 - 48.0 % MCV 89.0 80.0 - 94.0 FL MCH 28.6 27.0 - 31.0 PG MCHC 32.1 32.0 - 36.0 G/DL RDW 13.5 11.5 - 14.5 % PLT 300 130 - 400 x10'3/uL MPV 10.0 9.3 - 12.2 FL DIFFERENTIAL TYPE AUTOMATED DIFFERENTIAL NEUTROPHILS 58.5 % LYMPHOCYTES 27.8 % MONOCYTES 9.5 % EOSINOPHILS 2.8 % BASOPHILS 1.0 % IMMATURE GRANS 0.4 % ABS. NEUTROPHILS TOTAL 4.83 1.80 - 7.70 x10'3/uL ABS. LYMPHOCYTES 2.29 1.00 - 4.80 x10'3/uL ABS. MONOCYTES 0.78 0.24 - 0.86 x10'3/uL ABS. EOSINOPHILS 0.23 0.04 - 0.36 x10'3/uL ABS. BASOPHILS 0.08 0.01 - 0.08 x10'3/uL ABS. IMMATURE GRANULOCYTES 0.03 0.00 - 0.49 x10'3/uL COMPREHENSIVE METABOLIC PANEL Result Value Ref Range GLUCOSE 91 70 - 99 MG/DL BUN 13 7 - 18 MG/DL CREATININE 0.80 0.55 - 1.02 MG/DL SODIUM 142 136 - 145 MMOL/L POTASSIUM 3.6 3.5 - 5.1 MMOL/L CHLORIDE 109 (H) 100 - 108 MMOL/L CO2 29.6 21 - 32 MMOL/L CALCIUM 8.0 (L) 8.5 - 10.1 MG/DL TOTAL BILIRUBIN 0.3 0.2 - 1.2 MG/DL TOTAL PROTEIN 5.7 (L) 6.4 - 8.2 G/DL ALBUMIN 2.8 (L) 3.4 - 5.0 G/DL AST 10 (L) 15 - 37 U/L ALT 14 14 - 55 U/L ALK PHOS 66 50 - 136 U/L ANION GAP 3.4 (L) 5 - 15 MMOL/L BUN CREATININE RATIO 16.2 6 - 26 A/G RATIO 1.0 1.0 - 2.0 RATIO eGFR Non-Afr. Amer. >90 >90 ML/MIN/1.73 M2 eGFR Afr. Amer. >90 >90 ML/MIN/1.73 M2 LIPASE Result Value Ref Range LIPASE 119 73 - 393 UNITS/L URINALYSIS Result Value Ref Range Specimen Type URINE CLEAN CATCH COLOR YELLOW TRANSPARENCY CLOUDY Specific [place] (U) 1.027 1.001 - 1.030 U PH 5.0 5.0 - 9.0 LEUKOCYTE ESTERASE NEGATIVE NEGATIVE NITRITES NEGATIVE NEGATIVE PROTEIN, URINE 30 (H) <30 MG/DL URINE GLUCOSE NEGATIVE NEGATIVE MG/DL U KETONES NEGATIVE NEGATIVE MG/DL UROBILINOGEN 2.0 (A) NEGATIVE MG/DL Urine Bilirubin NEGATIVE NEGATIVE MG/DL BLOOD LARGE (A) NEGATIVE CULTURE & SENSITIVITY INDICATED? CULTURE IS NOT INDICATED SQUAMOUS EPITHELIALS MANY /LPF MUCUS MANY /LPF WBC/HPF <1 <6 /HPF RBC/HPF 12 (H) <6 /HPF POCT urine Result Value Ref Range URINE HCG TEST negative NEGATIVE INT CTRL PERFORMED EXPECTED? yes ED Course She reports feeling much better after Toradol. No longer having any abdominal cramping. She reportsheadache has improved. I discussed with the patient the workup as well as plan of care. I discussed medications and well as other therapies needed. I discussed with the patient follow-up instructions as well as return precautions. The patient agrees with the plan of care and is stable for discharge at this time. Medications ketorolac (TORADOL) injection 30 mg (30 mg Intravenous Given 09/06/184) Clinical Impression Abnormal vaginal bleeding (Primary) Headache Discharge Medication List as of 09/06/2018 3:38 AM START taking these medications Details ibuprofen 600 MG tablet Take 1 tablet (600 mg total) by mouth every 6 (six) hours as needed., Starting Sun09/06/2018, Print Class: Print Pharmacy: [facility] [address] [place] [address] ( #: [phone]) Disposition: Discharge Follow-Up: Kit Arriola MD [address] [place] [address] Call in 1 day As needed I, Oscar Aquino, acting as a scribe, am personally taking down the notes in the presence ofDr. Shamar Linton MD. Take no action on this note until reviewed and authenticated by the physician. Shamar Linton MD 09/07/18 0520 * Sherif Livingston RN - 09/06/2018 2:44 AM CDT PT REPORTS HEADACHE THAT BEGAN AT 1900 YESTERDAY. REPORTS SHE TOOK BENADRYL AROUND THE SAME TIME KOFI NOSE WAS RUNNY. UNSURE STRENGTH SHERIF LIVINGSTON RN * Addis Gomez RN - 09/06/2018 2:11 AM CDT Spoke with Leora from lab, pt is A+ from previous history. * Manda De La Vega PA-C - 09/06/2018 1:02 AM CDT [place], [place] EMERGENCY DEPARTMENT ENCOUNTER Medical Screening Examination 09/06/18 1:02 AM Chief Complaint : Abdominal Pain; Headache; Cough; and Vaginal Bleeding HPI : Roxana Amos is a 28-year-old female who presents c/o vaginal bleeding and abdominal pain. Suspects miscarriage. Vital Signs: Filed Vitals: 09/06/18 0038 BP: 132/87 Pulse: 89 Resp: 18 Temp: 98.3 ??F (36.8 ??C) TempSrc: Temporal SpO2: 99% Weight: 68.9 kg (152 lb) Height: 5' 5 (1.651 m) Physical exam: A brief physical exam was completed to facilitate/expedite patient care. Garza findings include: pt stable Plan: labs MANDA DE LA VEGA PA-C 09/06/2018 Manda De La Vega PA-C 09/06/18 0102 Cosigned by Shamar Linton MD at 09/06/2018 7:04 PM CDT * Samaria Dill RN - 09/06/2018 12:40 AM CDT Pt to ed from home with vaginal bleeding times one week. Pt reports i've had miscarriages before and I think I had another, i'm used to it with PCOS . Pt also reports bilateral flank, left and rightabdominal pain, cough and headache that started yesterday. Pt denies any emesis or urinary symptoms. Pt reports still bleeding intermittently. Pt reports took benadryl around 2345. documented in this encounter Plan of Treatment Not on file documented as of this encounter Procedures Procedure Name Priority Date/Time Associated Diagnosis Comments POCT URINE (BACK OFFICE) STAT 09/06/2018 2:27 AM CDT URINALYSIS STAT 09/06/2018 2:27 AM CDT COMPREHENSIVE METABOLIC PANEL STAT 09/06/2018 2:17 AM CDT CBC W/DIFF AUTOMATED STAT 09/06/2018 2:17 AM CDT LIPASE STAT 09/06/2018 2:17 AM CDT documented in this encounter Results * POCT urine (09/06/2018 2:27 AM CDT) URINE HCG TEST negative NEGATIVE Comment:[id number], exp:[id number] Internal Control performed as Expected? yes us Manda De La Vega PA-C POINT OF CARE TEST ORDERABL ES Final Result * (ABNORMAL) URINALYSIS (09/06/2018 2:27 AM CDT) SPECIMEN TYPE URINE CLEAN CATCH 09/06/2018 2:29 AM CDT [facility] COLOR (U) YELLOW 09/06/2018 2:52 AM CDT [facility] TRANSPARENCY CLOUDY 09/06/2018 2:52 AM CDT [facility] SPECIFIC GRAVITY (U) 1.027 1.001 - 1.030 09/06/2018 2:52 AM CDT [facility] U PH 5.0 5.0 - 9.0 09/06/2018 2:52 AM CDT [facility] LEUKOCYTES (U) NEGATIVE NEGATIVE 09/06/2018 2:52 AM CDT [facility] NITRITES NEGATIVE NEGATIVE 09/06/2018 2:52 AM CDT [facility] PROTEIN (U) 30(H) <30 MG/DL 09/06/2018 2:52 AM CDT [facility] URINE GLUCOSE NEGATIVE NEGATIVE MG/DL 09/06/2018 2:52 AM CDT [facility] KETONES MG/DL (U) NEGATIVE NEGATIVE MG/DL 09/06/2018 2:52 AM CDT [facility] UROBILINOGEN 2.0(A) NEGATIVE MG/DL 09/06/2018 2:52 AM CDT [facility] BILIRUBIN (U) NEGATIVE NEGATIVE MG/DL 09/06/2018 2:52 AM CDT [facility] BLOOD (U) LARGE(A) NEGATIVE 09/06/2018 2:52 AM CDT [facility] CULTURE & SENSITIVITY INDICATED? CULTURE IS NOT INDICATED 09/06/2018 2:52 AM CDT [facility] SQUAMOUS EPITHELIALS MANY /LPF 09/06/2018 2:52 AM CDT [facility] MUCUS MANY /LPF 09/06/2018 2:52 AM CDT [facility] WBC/HPF <1 <6 /HPF 09/06/2018 2:52 AM CDT [facility] RBC/HPF 12(H) <6 /HPF 09/06/2018 2:52 AM CDT [facility] URINE SPECIMEN OBTAINED BY CLEAN CATCH PROCEDURE / Unknown 09/06/2018 2:27 AM CDT us Manda De La Vega PA-C URINE ORDERABLES Final Resu lt [facility] [address] [place] [address], [place] [phone] * LIPASE (09/06/2018 2:17 AM CDT) LIPASE 119 73 - 393 UNITS/L 09/06/2018 2:47 AM CDT [facility] 09/06/2018 2:17 AM CDT us Manda De La Vega PA-C LABORATORY Final Resul t [facility] [address] [place] [address], [place] [phone] * (ABNORMAL) COMPREHENSIVE METABOLIC PANEL (09/06/2018 2:17 AM CDT) [facility] [address] [facility] GLUCOSE 91 70 - 99 MG/DL 09/06/2018 2:47 AM CDT [facility] BUN 13 7 - 18 MG/DL 09/06/2018 2:47 AM CDT [facility] CREATININE S/P/B 0.80 0.55 - 1.02 MG/DL 09/06/2018 2:47 AM CDT [facility] SODIUM S/P/B 142 136 - 145 MMOL/L 09/06/2018 2:47 AM CDT [facility] POTASSIUM S/P/B 3.6 3.5 - 5.1 MMOL/L 09/06/2018 2:47 AM CDT [facility] CHLORIDE S/P/B 109(H) 100 - 108 MMOL/L 09/06/2018 2:47 AM CDT [facility] CO2 29.6 21 - 32 MMOL/L 09/06/2018 2:47 AM CDT [facility] CALCIUM S/P/B 8.0(L) 8.5 - 10.1 MG/DL 09/06/2018 2:47 AM CDT [facility] BILIRUBIN TOTAL S/P/B 0.3 0.2 - 1.2 MG/DL 09/06/2018 2:47 AM CDT [facility] TOTAL PROTEIN S/P/B 5.7(L) 6.4 - 8.2 G/DL 09/06/2018 2:47 AM CDT [facility] ALBUMIN S/P/B 2.8(L) 3.4 - 5.0 G/DL 09/06/2018 2:47 AM CDT [facility] AST 10(L) 15 - 37 U/L 09/06/2018 2:47 AM CDT [facility] ALT 14 14 - 55 U/L 09/06/2018 2:47 AM CDT [facility] ALKALINE PHOSPHATASE S/P/B 66 50 - 136 U/L 09/06/2018 2:47 AM CDT [facility] ANION GAP 3.4(L) 5 - 15 MMOL/L 09/06/2018 2:47 AM CDT [facility] BUN CREATININE RATIO 16.2 6 - 26 09/06/2018 2:47 AM CDT [facility] A/G RATIO 1.0 1.0 - 2.0 RATIO 09/06/2018 2:47 AM CDT [facility] EGFR NON-AFR. AMER. >90 >90 ML/MIN/1.7 3 M2 09/06/2018 2:47 AM CDT [facility] EGFR AFR. AMER. >90 >90 ML/MIN/1.7 3 M2 09/06/2018 2:47 AM T [facility] Comment: NOTE: eGFR is not calculated for patients <18 years of age. This is an estimated GFR (CKD EPI) and should not be used for calculating drug doses. 09/06/2018 2:17 AM CDT us Manda De La Vega PA-C LABORATORY Final Resul t [facility] [address] [place] [address], [place] [phone] * (ABNORMAL) CBC W/DIFF AUTOMATED (09/06/2018 2:17 AM CDT) [facility] Signature WBC 8.2 4.5 - 11.0 x10'3/uL 09/06/2018 2:37 AM CDT [facility] RBC 4.20 4.20 - 5.40 x10'6/uL 09/06/2018 2:37 AM CDT [facility] HGB 12.0 12.0 - 16.0 G/DL 09/06/2018 2:37 AM CDT [facility] HCT 37.4(L) 38.0 - 48.0 % 09/06/2018 2:37 AM CDT [facility] MCV 89.0 80.0 - 94.0 FL 09/06/2018 2:37 AM CDT [facility] MCH 28.6 27.0 - 31.0 PG 09/06/2018 2:37 AM CDT [facility] MCHC 32.1 32.0 - 36.0 G/DL 09/06/2018 2:37 AM CDT [facility] RDW 13.5 11.5 - 14.5 % 09/06/2018 2:37 AM CDT [facility] PLT 300 130 - 400 x10'3/uL 09/06/2018 2:37 AM CDT [facility] MPV 10.0 9.3 - 12.2 FL 09/06/2018 2:37 AM CDT [facility] DIFFERENTIAL TYPE AUTOMATED DIFFERENTIAL 09/06/2018 2:37 AM CDT [facility] NEUTROPHILS % 58.5 % 09/06/2018 2:37 AM CDT [facility] LYMPHOCYTES % 27.8 % 09/06/2018 2:37 AM CDT [facility] MONOCYTES % 9.5 % 09/06/2018 2:37 AM CDT [facility] EOSINOPHILS 2.8 % 09/06/2018 2:37 AM CDT [facility] BASOPHILS 1.0 % 09/06/2018 2:37 AM CDT [facility] IMMATURE GRANS % 0.4 % 09/07/19 2:37 AM CDT [facility] ABS. NEUTROPHILS TOTAL 4.83 1.80 - 7.70 x10'3/uL 09/06/2018 2:37 AM CDT [facility] ABS. LYMPHOCYTES 2.29 1.00 - 4.80 x10'3/uL 09/06/2018 2:37 AM CDT [facility] ABS. MONOCYTES 0.78 0.24 - 0.86 x10'3/uL 09/06/2018 2:37 AM CDT [facility] ABS. EOSINOPHILS 0.23 0.04 - 0.36 x10'3/uL 09/06/2018 2:37 AM CDT [facility] ABS. BASOPHILS 0.08 0.01 - 0.08 x10'3/uL 09/06/2018 2:37 AM CDT [facility] ABS. IMMATURE GRANULOCYTES 0.03 0.00 - 0.49 x10'3/uL 09/06/2018 2:37 AM CDT [facility] 09/06/2018 2:17 AM CDT Manda De La Vega PA-C LABORATORY Final Resul t [facility] [address] [place] [address], [place] [phone] documented in this encounter Visit Diagnoses Diagnosis Abnormal vaginal bleeding- Primary Other specified noninflammatory disorder of vagina Headache documented in this encounter Administered Medications Inactive Administered Medications - up to 3 most recent administrations Medication Order MAR Action Action Date Dose Rate Site ketorolac (TORADOL) injection 30 mg 30 mg, Intravenous, Once, 1 dose, On Sun09/06/18 at 0315, For IV administration, give over 15 seconds. Given 09/06/2018 3:14 AM CDT 30 mg documented in this encounter Active and Recently Administered Medications Times are shown in CDT. Scheduled Medication Order 09/04/2018 09/05/2018 09/06/2018 ketorolac (TORADOL) injection 30 mg (COMPLETED) 30 mg, Intravenous, Once, 1 dose, On Sun09/06/18 at 0315, For IV administration, give over 15 seconds. 0314 (Given - Provid er: Sherif Livingston RN) documented in this encounter Care Teams Offset Proof Press Operator Relationship Specialty Start Date End Date Kit Arriola MD [address] [address] PCP - General 12/01/15 07/13/20 documented as of this encounter
--- OUTSIDE RECORDS SUMMARY | 2024-02-17 13:39 | XMS_ITS | Encounter Summary ---
Author Organization [facility] Address [address] [place] [address] [place] [address] Care Team Providers Care Agricultural Economics Professor Name Role Phone Kit Arriola MD Primary Care Provider [phone] Reason for Visit * Reason Comments Urinary Symptoms Abdominal Pain Back Pain Encounter Details Date Type Department Care Team (Latest Contact Info) Description 06/26/2017 4:35 PM CDT - 06/26/2017 5:13 PM CDT Hospital Encounter [facility] [address] [place], [place] [id number] Gurvinder Yee, APGABRIELLE [address] [facility] [address] [place], [place] [address] Urinary Symptoms; Abdominal Pain; Back Pain Discharge Disposition: Home or Self Care [...] Sign Reading Time Taken Comments Blood Pressure 110/73 06/26/2017 4:44 PM CDT Pulse 91 06/26/2017 4:44 PM CDT Temperature 37.3 ??C (99.1 ??F) 06/26/2017 4:44 PM CD T Respiratory Rate 18 06/26/2017 4:44 PM CDT Oxygen Saturation 100% 06/26/2017 4:44 PM CDT Inhaled Oxygen Concentration - - Weight 56.7 kg (125 lb) 06/26/2017 4:44 PM CDT Height 165.1 cm (5' 5 ) 06/26/2017 4:44 PM CDT Body Mass Index 20.8 06/26/2017 4:44 PM CDT documented in this encounter Discharge Instructions * Discharge Instructions* MANUELA Chirinos - 06/26/2017 5:06 PM CDT Images from the original note were not included. Patient Education Low Back Pain in Adults The Basics Written by the doctors and editors at [facility] How worried should I be about low back pain???--??Do not assume the worst. Almost everyone gets back pain at some point. Low back pain can be scary. But it is almost never serious. It usually goes away on its own. The cases that require urgent care or surgery are rare. See your doctor or nurse if you have back pain and you: ?Recently had a fall or an injury to your back ?Have numbness or weakness in your legs ?Have problems with bladder or bowel control ?Have unexplained weight loss ?Have a fever or feel sick in other ways ?Take steroid medicine, such as prednisone, on a regular basis ?Have diabetes or a medical problem that weakens your immune system ?Have a history of cancer or osteoporosis You should also see a doctor if: ?Your back pain is so severe that you cannot perform simple tasks ?Your back pain does not start to improve within 3 to 4 weeks What are the parts of the back???--??The back is made up of (figure 1): ?Vertebrae - A stack of bones that sit on top of one another like a stack of coins. Each of these bones has a hole in the center. When stacked, the bones form a hollow tube that protects the spinal cord. ?Discs - Rubbery discs sit in between each of the vertebrae to add cushion and allow movement. ?Spinal cord and nerves - The spinal cord is the highway of nerves that connects the brain to the rest of the body. It runs through the vertebrae within the spinal canal. Nerves branch from the spinal cord and pass in between the vertebrae. From there they connect to the arms, the legs, and the organs. (This is why problems in the back can cause leg pain or bladder or bowel problems.) ?Muscles, tendons, and ligaments - Together the muscles, tendons, and ligaments are called the soft tissues of the back. These soft tissues support the back and help hold it together. What causes low back pain???--??In most cases, doctors and nurses do not know what causes low back pain. Pain can happen if you strain a muscle or hurt a tendon or ligament. But if that is the cause of your pain, doctors and nurses have no way of knowing it for sure. Pain can also happen if you have: ?Damaged, bulging, or torn discs ?Arthritis affecting the joints of the spine ?Bony growths on the vertebrae that crowd nearby nerves ?A vertebra out of place ?Narrowing in the spinal canal ?A tumor or infection (but this is very rare) Should I get an imaging test, like an MRI???--??Most people do not need an imaging test. Most casesof back pain go away within 4 to 6 weeks - or in even less time. Doctors and nurses usually do not order imaging tests before then unless there are signs of something unusual. If your doctor or nurse does not order an imaging test, do not worry. He or she can still learn a lot about your pain just from looking you over and talking with you. Plus, treatment can start right away, even without an imaging test. How can the doctor or nurse tell what is wrong just by talking to me???--??Your symptoms tell your doctor or nurse a lot about the cause of your pain. If your pain spreads down the back of one thigh,for instance, that could be a sign that one of the nerves that go to your leg is being pinched by abulging or torn disc. If, on the other hand, your pain goes all the way down both legs, that could be a sign that you have bony growths on your spine. What can I do to feel better???--??The best thing you can do is to stay as active as possible - even if you are in pain. People with low back pain recover faster if they stay active. Walk as much as you can. If you stopped working because of your pain, try to get back to your normal routine soon. But do not overdo it. When you start to feel better, ask your doctor or nurse about exercises that can help strengthen your back. These exercises can help you get better faster and might make it less likely that you will have pain again. How is back pain treated???--??A small number of people end up needing surgery to treat back pain. But most people do well with simpler treatments, such as: ?Medicines - First, you can try pain medicines that you can get without a prescription. In many cases, doctors suggest trying an NSAID, such as ibuprofen (sample brand names: Advil, Motrin) or naproxen (sample brand name: Aleve) first. These work better than acetaminophen (Tylenol) for back pain. If non-prescription medicines do not help, doctors and nurses can prescribe stronger pain medicines. Sometimes, doctors suggest a medicine to relax the muscles (called a muscle relaxant ). But keep in mind that muscle relaxants are not generally used in people older than 65. In older people, thesemedicines can cause side effects such as trouble urinating or confusion. ?Physical therapy to teach you special exercises and stretches ?Spinal manipulation - This is when someone like a physical therapist or a chiropractor moves or adjusts the joints of your back ?Acupuncture - This is when someone who knows traditional [place] medicine inserts tiny needles into your body to block pain signals ?Massage ?Reducing stress - Some people feel better if they try something called mindfulness-based stress reduction. This involves going to a group program to practice relaxation, meditation, and yoga. ?Injections of medicines that numb the back or reduce swelling What can I do to keep from getting back pain again???--??Stay active and learn exercises that help strengthen and stretch your back. Learn to lift using your legs instead of your back. And avoid sitting or standing in the same position for too long. All topics are updated as new evidence becomes available and our peer review process is complete. This topic retrieved from [employer] on: Feb 08, 2017. Topic 00436 Version 14.0 Release: 25.6.2-122 - C26.3 ?2018??[employer] and/or its affiliates.??All rights reserved. figure 1: Anatomy of the back Low back pain can be caused by problems with the muscles, ligaments, discs, bones (vertebrae), or nerves. Often, back pain is caused by strains or sprains involving the muscles or ligaments. These problems cannot always be seen on imaging tests, such as MRI or CT scans. Graphic 81185 Version 5.0 Consumer Information Use and Disclaimer This information [...] that is right for you.The use of [employer] content is governed by the [employer] Terms of Use. ??2018 [employer]. All rights reserved. Copyright ?2018??[employer]. and/or its affiliates.??All rights reserved. Patient Education Acute Cystitis Discharge Instructions About this topic Acute cystitis is irritation of the bladder. It is often caused by germs getting into the urinary tract. The urinary tract includes the kidneys, ureters, bladder, and urethra. The urethra is a tube at the bottom of the bladder. Urine flows out of this tube. The germs enter the urethra and then spread in the bladder. These germs may cause an infection in the bladder or urinary tract. This condition may also be caused by irritation from things like bubble baths, sanitary pads, sex, certain drugs,or certain foods. This condition is more common in women than men. What care is needed at home? ?? Ask your doctor what you need to do when you go home. Make sure you ask questions if you do not understand what the doctor says. This way you will know what you need to do. ?? Take your drugs as ordered by your doctor. ?? Drink at least 8 to 10 glasses of water or water-based drinks each day. Do not include drinks with caffeine, like coffee or tea. ?? Do not hold back your urine. Go to the bathroom every 2 to 3 hours. ?? Apply a warm compress or warm water bottle to your lower belly to lessen pain. ?? Practice good hygiene. Women should wipe from front to back after going to the toilet. ?? Do not use scented tampons, soap, or toilet paper. ?? Go to the toilet before and after sex. ?? Keep your genital area clean. Wash daily with soap and water. ?? Take showers instead of tub baths. ?? Do not use douches or feminine sprays. What follow-up care is needed? Your doctor may ask you to make visits to the office to check on your progress. Be sure to keep these visits. What drugs may be needed? The doctor may order drugs to: ?? Help with pain or swelling ?? Help with the urge or need to pass urine often ?? Fight an infection Will physical activity be limited? Physical activities will not be limited. You may have to pass urine more often. What changes to diet are needed? ?? Do not drink beer, wine, and mixed drinks (alcohol) or caffeine. These can bother the bladder. ?? Talk to your doctor about drinking cranberry juice or taking cranberry tablets. What problems could happen? ?? Kidney infection ?? Blood in the urine When do I need to call the doctor? ?? Signs of a very bad reaction. These include wheezing; chest tightness; fever; itching; bad cough; blue skin color; seizures; or swelling of face, lips, tongue, or throat. Go to the ER right away. ?? Signs of infection. These include a fever of 100.4??F (38??C) or higher, chills, pain with passing urine. ?? Signs are worse or do not get better within 24 hours of starting treatment ?? Blood in the urine ?? Very bad pain in the back, sides, or belly ?? You have discharge from your penis or vagina ?? Little urine or no urine at all ?? Signs return after treatment ends ?? You are not feeling better in 2 to 3 days or you are feeling worse Teach Back: Helping You Understand The Teach [...] condition. ?? I can tell you what are good fluids for me to drink and how often I should try to go to the bathroom. ?? I can tell you what I will do if I have a fever; chills; pain with passing urine; blood in my urine; or back, side, or belly pain. Where can I learn more? NHS Choices http://www.nhs.uk/conditions/Cystitis/Pages/Introduction.aspx Last Reviewed Date 2016-06-19 Consumer Information Use and Disclaimer This information [...] is right for you. Copyright Copyright ?? 2018 [employer] and its affiliates and/or licensors. All rights reserved. documented in this encounter Medications at Time of Discharge ibuprofen 800 MG tablet Take 1 tablet (800 mg total) by mouth every 8 (eight) hours as needed for Pain. 20 tablet 06/26/2017 07/06/2017 nitrofurantoin, macrocrystal-mono hydrate, (MACROBID) 100 MG capsule Take 1 capsule (100 mg total) by mouth 2 (two) times daily for 7 days. 14 capsule 06/26/2017 07/03/2017 documented as of this encounter ED Notes * MANUELA Chirinos - 06/26/2017 5:02 PM CDT History Chief Complaint Patient presents with ??? Urinary Symptoms ??? Abdominal Pain ??? Back Pain Roxana Amos is a 27-year-old female who presented to the ED with complaints of urinary frequency and lower abdominal pressure x 2 days. Denies burning with urination. Patient also having lower back pain x 2 weeks after bending over at work. Patient has not taken anything for the pain. Patient denies hx back problems. No other complaints Past Medical History: Diagnosis Date ??? Kidney stones ??? PCOS (polycystic ovarian syndrome) Prior to Admission medications Medication Sig Start Date End Date Taking? Authorizing Provider ibuprofen 800 MG tablet Take 1 tablet (800 mg total) by mouth every 8 (eight) hours as needed for Pain. 06/26/17 07/06/17 Yes MANUELA Chirinos nitrofurantoin, macrocrystal-monohydrate, (MACROBID) 100 MG capsule Take 1 capsule (100 mg total) by mouth 2 (two) times daily for 7 days. 06/26/17 07/03/17 Yes MANUELA Chirinos Past Surgical History: Procedure Laterality Date ??? CHOLECYSTECTOMY Family History Problem Relation Age of Onset ??? Hypertension Father ??? Diabetes Father Social History Substance Use Topics ??? Smoking status: Never Smoker ??? Smokeless tobacco: Never Used ??? Alcohol use No Comment: rare use Review of Systems Constitutional: Negative for chills, fatigue and fever. Respiratory: Negative for shortness of breath. Gastrointestinal: Positive for abdominal pain. Negative for abdominal distention, anal bleeding, constipation, diarrhea, nausea, rectal pain and vomiting. Genitourinary: Positive for frequency. Negative for decreased urine volume, difficulty urinating, dysuria, flank pain, hematuria, menstrual problem, urgency, vaginal bleeding and vaginal discharge. Musculoskeletal: Positive for back pain. All other systems reviewed and are negative. Physical Exam Filed Vitals: 06/26/17 1644 BP: 110/73 Pulse: 91 Resp: 18 Temp: 99.1 ??F (37.3 ??C) TempSrc: Oral SpO2: 100% Weight: 56.7 kg (125 lb) Height: 5' 5 (1.651 m) Physical Exam Constitutional: She is oriented to person, place, and time. She appears well- developed and well-nourished. HENT: Head: Normocephalic and atraumatic. Right Ear: External ear normal. Left Ear: External ear normal. Nose: Nose normal. Mouth/Throat: Oropharynx is clear and moist. Eyes: Conjunctivae and EOM are normal. Pupils are equal, round, and reactive to light. Neck: Normal range of motion. Neck supple. Cardiovascular: Normal rate, regular rhythm, normal heart sounds and intact distal pulses. Pulmonary/Chest: Effort normal and breath sounds normal. Abdominal: Soft. Bowel sounds are normal. There is no hepatosplenomegaly, splenomegaly or hepatomegaly. There is tenderness in the suprapubic area. There is no rigidity, no guarding, no CVA tenderness, no tenderness at McBurney's point and negative Pelaez's sign. No hernia. Musculoskeletal: Normal range of motion. Neurological: She is alert and oriented to person, place, and time. Skin: Skin is warm and dry. Nursing note and vitals reviewed. Labs Reviewed URINALYSIS AUTO DIP - Abnormal; Notable for the following: Result Value LEUKOCYTE ESTERASE TRACE (*) PROTEIN, URINE 100 (*) Urine Bilirubin SMALL (*) BLOOD MODERATE (*) All other components within normal limits CULTURE URINE No orders to display ED Course Procedures MDM Number of Diagnoses or Management Options Diagnosis management comments: Will treat as uti and lower back strain Amount and/or Complexity of Data Reviewed Clinical lab tests: reviewed Workup Notes SNOMED CT(R) 1. Strain of muscle, fascia and tendon of lower back, initial encounter LOW BACK STRAIN 2. Acute cystitis with hematuria ACUTE HEMORRHAGIC CYSTITIS Disposition: Discharge MANUELA CHIRINOS APNP 06/26/17 1706 * John Martínez RN - 06/26/2017 4:41 PM CDT PT C/O NON RADIATING LOWER BACK PAIN X1 WEEK. PT ALSO REPORTS LOWER ABDOMINAL CRAMPING AND INCREASED URINARY FREQUENCY. DENIES NVD. documented in this encounter Plan of Treatment Not on file documented as of this encounter Procedures Procedure Name Priority Date/Time Associated Diagnosis Comments URINE BACTERIA CULTURE Routine 06/26/2017 4:55 PM CDT URINALYSIS AUTO DIP STAT 06/26/2017 4 :48 PM CDT documented in this encounter Results * CULTURE URINE (06/26/2017 4:55 PM CDT) SPEC DESCRIPTION URINE CLEAN CATCH 06/26/2017 5:00 PM CDT [facility] SPECIAL REQUESTS NO SPECIAL REQUEST 06/26/2017 5:00 PM CDT [facility] CULTURE RESULT 10,000-49,000 COL/ML ESCHERICHIA COLI 06/29/2017 9:19 AM CDT [facility] CULTURE RESULT POLYMICROBIAL GROWTH CONSISTENT WITH NORMAL GENITAL PHILIP. ?? SUSCEPTIBILITIES NOT ROUTINELY PERFORMED. 06/29/2017 9:19 AM CDT [facility] URINE SPECIMEN OBTAINED BY CLEAN CATCH PROCEDURE / Unknown 06/26/2017 4:55 PM CDT 06/26/2017 5:00 PM CDT Narrative Organism Antibiotic Method Susceptibility Escherichia coli AMPICILLIN LUIS (VITEK) <=2: Sensitive Escherichia coli AMPICILLIN/SULBACTAM LUIS (VITEK) <=2: Sensitive Escherichia coli CEFTRIAXONE LUIS (VITEK) <=1: Sensitive Escherichia coli CEFTAZIDIME LUIS (VITEK) <=1: Sensitive Escherichia coli CEFAZOLIN LUIS (VITEK) <=4: Sensitive Escherichia coli ESBL LUIS (VITEK) NEG: Sensitive Escherichia coli GENTAMICIN LUIS (VITEK) <=1: Sensitive Escherichia coli LEVOFLOXACIN LUIS (VITEK) <=0.12: Sensitive Escherichia coli PIPRACIL/TAZO LUIS (VITEK) <=4: Sensitive Escherichia coli TRIMETH-SULFAMETH. LUIS (VITEK) <=20: Sensitive Escherichia coli NITROFURANTOIN LUIS (VITEK) <=16: Sensitive us Gurvinder ROY MICROBIOLOGY - GENERAL ORD ERABLES Final Result [facility] [address] [place] [address], [id number] [place] [address], [place] * (ABNORMAL) URINALYSIS AUTO DIP (06/26/2017 4:48 PM CDT) SPECIMEN TYPE URINE CLEAN CATCH 06/26/2017 4:48 PM CDT [facility] COLOR (U) YELLOW 06/26/2017 4:59 PM CDT [facility] TRANSPARENCY CLOUDY 06/26/2017 4:59 PM CDT [facility] SPECIFIC GRAVITY (U) 1.030 1.001 - 1.030 06/26/2017 4:59 PM CDT [facility] U PH 5.5 5.0 - 9.0 06/26/2017 4:59 PM CDT [facility] LEUKOCYTES (U) TRACE(A) NEGATIVE 06/26/2017 4:59 PM CDT [facility] NITRITES NEGATIVE NEGATIVE 06/26/2017 4:59 PM CDT [facility] PROTEIN (U) 100(H) <30 MG/DL 06/26/2017 4:59 PM CDT [facility] URINE GLUCOSE NEGATIVE NEGATIVE MG/DL 06/26/2017 4:59 PM CDT [facility] KETONES MG/DL (U) NEGATIVE NEGATIVE MG/DL 06/26/2017 4:59 PM CDT [facility] UROBILINOGEN NEGATIVE NEGATIVE MG/DL 06/26/2017 4:59 PM CDT [facility] BILIRUBIN (U) SMALL(A) NEGATIVE MG/DL 06/26/2017 4:59 PM CDT [facility] BLOOD (U) MODERATE(A) NEGATIVE 06/26/2017 4:59 PM CDT [facility] CULTURE & SENSITIVITY INDICATED? SPECIMEN SETUP FOR CULTURE 06/26/2017 4:59 PM CDT [facility] URINE SPECIMEN OBTAINED BY CLEAN CATCH PROCEDURE / Unknown 06/26/2017 4:48 PM CDT us Gurvinder ROY URINE ORDERABLES Final Res [id number] [place] [address], documented in this encounter Visit Diagnoses Diagnosis Strain of muscle, fascia and tendon of lower back, initial encounter- Primary Acute cystitis with hematuria Acute cystitis documented in this encounter Care Teams Agricultural Economics Professor Relationship Specialty Start Date End Date Kit Arriola MD [address] [address] PCP - General 12/01/15 07/13/20 documented as of this encounter
--- OUTSIDE RECORDS SUMMARY | 2024-02-17 13:39 | XMS_ITS | Encounter Summary ---
Author Organization [facility] Address [address] [place] [address] [place] [address] Care Team Providers Care Vice President Quality Assurance Name Role Phone Kit Arriola MD Primary Care Provider [phone] Kit Arriola MD Unavailable [phone] Encounter Details Date Type Department Care Team (Latest Contact Info) Description 09/17/2020 Travel Social History Tobacco Use Types Packs/Day [...] on filedocumented in this encounter Care Teams Vice President Quality Assurance Relationship Specialty Start Date End Date Kit Arriola MD [address] [address] PCP - General FAMILY PRACTICE 07/14/20 Kit Arriola MD [address] [address] 07/14/20 documented as of this encounter
--- OUTSIDE RECORDS SUMMARY | 2024-02-17 13:39 | XMS_ITS | Clinical Summary ---
Author Organization [facility] Address [address] [facility] [place] [address] [place] [address] Care Team Providers Care Mfg Assoc Name Role Phone Kit Arriola MD Primary Care Provider [phone] Kit Arriola MD Unavailable [phone] Allergies Active Allergy Reactions Criticality Noted Date Comments Latex Hives 11/28/2017 Morphine Hives,Itching 02/07/2017 Medications No known medications Active Problems No known active problems Family History Medical History Relation Comments Stroke Father None Mother Breast Cancer Paternal Aunt 1 Breast Cancer Paternal Aunt 2 Breast Cancer Paternal Grandmother Relation Status Comments Daughter Alive Father Alive Mother Alive Paternal Aunt 1 Paternal Aunt 2 Paternal Grandmother Social History Tobacco Use Types Packs/Day Years [...] on file Sexual Orientation Not on file Last Filed [...] Mass Index 23.3 10/04/2020 8:07 AM CDT Plan of Treatment Health Maintenance Due Date Last Done Comments Cervical Cancer Screening Pa p Smear (Age 30 to 64) Every 3 Years 1992 Annual Physical 02/26/1995 Hepatitis C 02/26/2010 DTaP, Tdap and Td Vaccines ( 1 - Tdap) 02/26/2011 Hepatitis B Vaccines (1 of 3 - 19+ 3-dose series) 02/26/2011 Cervical Cancer Screening Pa p with HPV Testing (Age 30 to 64) Every 5 Years 02/26/2022 Cervical Cancer Screening wi th HPV 02/26/2022 COVID-19 Vaccine ( - 2023-2 5 season) 2023 03/01/2020, 02/09/2020 Influenza Adult (#1) 2023 HPV Vaccines Aged Out No longer eligi ble based on patient's age to complete this topic Meningococcal Vaccine Aged Out No josee afsaneh eligible based on patient's age to complete this topic Pneumococcal Vaccine: Pediatrics (0 to 5 Years) and At-Risk Patients (6 to 64 Years) Aged Out No longer eligible b ased on patient's age to complete this topic RSV Immunizations Under 20 Months Aged Out No longer eligible b ased on patient's age to complete this topic Insurance [facility] Care Teams Mfg Assoc Relationship Specialty Start Date End Date Kit Arriola MD [address] [address] PCP - General FAMILY PRACTICE 07/14/20 Kit Arriola MD [address] [address] 07/14/20
--- OUTSIDE RECORDS SUMMARY | 2024-02-17 13:39 | XMS_ITS | Encounter Summary ---
Author Organization [facility] Address Formerly [facility]6 [facility]. [place], [place] [id number] [place] [id number] Care Team Providers Care Medical Payment Poster Name Role Phone Kit Arriola MD Primary Care Provider [phone] Reason for Visit * Reason Comments Headache Encounter Details Date Type Department Care Team (Late st Contact Info) Description 03/10/2018 9:30 PM CIGAR SORTER - 03/10/2018 11:25 PM CIGAR SORTER Emergency [facility] Emergency Room [place], [place] [id number] Rika Troy, [facility] [address] [address] Headache Discharge Disposition: Home or Self Care (Routine [...] Sign Reading Time Taken Comments Blood Pressure 124/90 03/10/2018 11:00 PM CIGAR SORTER Pulse 74 03/10/2018 10:07 PM CIGAR SORTER Temperature 36.9 ??C (98.5 ??F) 03/10/2018 8:53 PM CS T Respiratory Rate 16 03/10/2018 10:0 7 PM CIGAR SORTER Oxygen Saturation 98% 03/10/2018 11: 00 PM CIGAR SORTER Inhaled Oxygen Concentration - - Weight 80.2 kg (176 lb 12.9 oz) 03/10/2018 8:53 PM CIGAR SORTER Height 165.1 cm (5' 5 ) 03/10/2018 8:53 PM CIGAR SORTER Body Mass Index 29.42 03/10/2018 8:53 PM CIGAR SORTER documented in this encounter Discharge Instructions * Discharge Instructions* ANA Gee - 03/10/2018 11:01 PM CIGAR SORTER You should take the medication I have prescribed as needed. Continue to drink plenty of fluids to stay hydrated. Follow-up with Dr. Arriola for further evaluation. R SORTER R SORTER * Attachments The following attachments cannot be sent through Care Everywhere. * Headache, Adult (Lithuanian) documented in this encounter Medications at Time of Discharge butalbital-acetam inophen-caffeine 50-300-40 MG capsule Take 1 capsule by mouth every 4 (four) hours as needed for Pain. 15 capsule 03/10/2018 12/19/2018 documented as of this encounter ED Notes * Cj Garza RN - 03/10/2018 10:07 PM CST Pt reports abd pain that started last night, waking her up out of sleep. Pt states the abd pain occurs to both sides and lower abd, currently rating pain a 9/10. Pt also state she has had some episodes of both vomiting and diarrhea. Approximates 2 episodes of vomiting and 4 episodes of diarrhea. Ptalso reports a headache and also rates it at a 9/10 however reports that it comes and goes. R SORTER * ANA Gee - 03/10/2018 9:44 PM CST Chief Complaint Chief Complaint Patient presents with ??? Headache History of Present Illness Roxana Amos is a 28-year-old female that presents to the ED for evaluation of multiple symptoms. Patient is mostly concerned for various GI symptoms and SOB secondary to left flank pain. Shehas a secondary complaint of an intermittent headache x 3 weeks. Patient reports occasional headaches prior to these symptoms. Pain is located in the temporal region and occasionally in the occipitallobe radiating down the neck. She admits to dysuria, nausea, decreased appetite, abdominal pain, fever, chills, emesis, and diarrhea that began last night. She denies being around anyone sick recently. PMH includes kidney stones but denies pain is as severe. She has taken medication for the MIRAMONTES thathas not offered relief. Patient denies recent increased stress. She also denies cough or sinus issues. LMP was 2 days ago. Medical History ALLERGIES: Allergies Allergen Reactions ??? Latex Hives ??? Morphine Hives and Itching MEDICATIONS: Prior to Admission medications Medication Sig Start Date End Date Taking? Authorizing Provider [id number] 50-300-40 MG capsule Take 1 capsule by mouth every 4 (four) hoursas needed for Pain. 03/10/18 Yes ANA Gee PAST MEDICAL HISTORY: Past Medical [...] Systems Review of Systems Constitutional: Positive for appetite change, chills and fever. Negative for activity change. HENT: Negative for congestion, sore throat and trouble swallowing. Eyes: Negative for visual disturbance. Respiratory: Positive for shortness of breath. Negative for cough and chest tightness. Cardiovascular: Negative for chest pain and palpitations. Gastrointestinal: Positive for abdominal pain, diarrhea, nausea and vomiting. Negative for constipation. Genitourinary: Positive for dysuria. Negative for decreased urine volume and flank pain. Musculoskeletal: Negative for arthralgias and gait problem. Skin: Negative for color change and rash. Neurological: Positive for headaches. Negative for dizziness and weakness. Psychiatric/Behavioral: Negative for confusion. Physical Exam Filed Vitals: 03/10/18205203/10/182206 BP: 109/83 109/79 Pulse: 79 74 Resp: 20 16 Temp: 98.5 ??F (36.9 ??C) TempSrc: Oral SpO2: 98% 98% Weight: 80.2 kg (176 lb 12.9 oz) Height: 5' 5 (1.651 m) Physical Exam Constitutional: She is oriented to person, place, and time. She appears well- developed and well-nourished. No distress. Multiple tattoos noted. HENT: Head: Normocephalic and atraumatic. Right Ear: External ear normal. Left Ear: External ear normal. Nose: Nose normal. Eyes: Conjunctivae and EOM are normal. Right eye exhibits no discharge. Left eye exhibits no discharge. Neck: Normal range of motion. Neck supple. Cardiovascular: Normal rate and regular rhythm. Pulmonary/Chest: Effort normal and breath sounds normal. No respiratory distress. She has no wheezes. She has no rales. She exhibits no tenderness. Abdominal: Soft. She exhibits no distension. There is no tenderness. There is no rebound and no guarding. Musculoskeletal: Normal range of motion. She exhibits no edema or deformity. Neurological: She is alert and oriented to person, place, and time. No cranial nerve deficit. She exhibits normal muscle tone. Coordination normal. Skin: Skin is warm and dry. No rash noted. She is not diaphoretic. No erythema. No pallor. Psychiatric: She has a normal mood and affect. Her behavior is normal. Judgment and thought contentnormal. Nursing note and vitals reviewed. Diagnostic Studies / Procedures ELECTROCARDIOGRAMS: No results found for this visit on 03/10/18. LABORATORY STUDIES: Results for orders placed or performed during the hospital encounter of 03/10/18 CBC W/DIFF AUTOMATED Result Value Ref Range WBC 7.9 4.5 - 11.0 x10'3/uL RBC 4.40 4.20 - 5.40 x10'6/uL HGB 13.0 12.0 - 16.0 G/DL HCT 39.2 38.0 - 48.0 % MCV 89.1 81.0 - 99.0 FL MCH 29.5 27.0 - 31.0 PG MCHC 33.2 32.0 - 36.0 G/DL RDW 13.0 11.5 - 14.5 % PLT 369 130 - 400 x10'3/uL MPV 9.6 9.3 - 12.2 FL DIFFERENTIAL TYPE AUTOMATED DIFFERENTIAL NEUTROPHILS 47.0 % LYMPHOCYTES 39.9 % MONOCYTES 10.0 % EOSINOPHILS 1.9 % BASOPHILS 0.9 % IMMATURE GRANS 0.3 (H) 0 % ABS. NEUTROPHILS TOTAL 3.71 1.80 - 7.70 x10'3/uL ABS. LYMPHOCYTES 3.15 1.00 - 4.80 x10'3/uL ABS. MONOCYTES 0.79 0.24 - 0.86 x10'3/uL ABS. EOSINOPHILS 0.15 0.04 - 0.36 x10'3/uL ABS. BASOPHILS 0.07 0.01 - 0.08 x10'3/uL ABS. IMMATURE GRANULOCYTES 0.02 0.00 - 0.03 x10'3/uL COMPREHENSIVE METABOLIC PANEL Result Value Ref Range GLUCOSE 91 70 - 99 MG/DL BUN 16 7 - 18 MG/DL CREATININE 0.84 0.55 - 1.02 MG/DL SODIUM 142 136 - 145 MMOL/L POTASSIUM 3.7 3.5 - 5.1 MMOL/L CHLORIDE 109 (H) 100 - 108 MMOL/L CO2 28.3 21 - 32 MMOL/L CALCIUM 8.7 8.5 - 10.1 MG/DL TOTAL BILIRUBIN 0.4 0.2 - 1.2 MG/DL TOTAL PROTEIN 7.7 6.4 - 8.2 G/DL ALBUMIN 3.8 3.4 - 5.0 G/DL AST 11 (L) 15 - 37 U/L ALT 16 14 - 55 U/L ALK PHOS 75 50 - 136 U/L ANION GAP 8.4 8 - 20 MMOL/L BUN CREATININE RATIO 19.1 6 - 26 A/G RATIO 1.0 1.0 - 2.0 RATIO eGFR Non-Afr. Amer. >90 >90 ML/MIN/1.73 M2 eGFR Afr. Amer. >90 >90 ML/MIN/1.73 M2 LIPASE Result Value Ref Range LIPASE 160 73 - 393 UNITS/L URINALYSIS Result Value Ref Range Specimen Type URINE CLEAN CATCH COLOR YELLOW TRANSPARENCY CLEAR Specific [place] (U) 1.026 1.001 - 1.030 U PH 6.0 5.0 - 9.0 LEUKOCYTE ESTERASE NEGATIVE NEGATIVE NITRITES NEGATIVE NEGATIVE PROTEIN, URINE NEGATIVE <30 MG/DL URINE GLUCOSE NEGATIVE NEGATIVE MG/DL U KETONES NEGATIVE NEGATIVE MG/DL UROBILINOGEN 4.0 (A) NEGATIVE MG/DL Urine Bilirubin NEGATIVE NEGATIVE MG/DL BLOOD SMALL (A) NEGATIVE CULTURE & SENSITIVITY INDICATED? CULTURE IS NOT INDICATED IMAGING STUDIES No orders to display ED Course / Medical Decision Making MDM Diagnosis management comments: 28-year-old female presents w/ multiple complaints. Pulse oximetry interpreted by me: 98% on room air. Impression normal. Rhythm strip interpreted by me: Normal sinus rhythm, rate of 73. No arrhythmias. Differential: pyelonephritis versus kidney stones versus gastroenteritis. Plan: - labs Re-Assessment: Lab work essentially unremarkable, patient nontoxic in exam, nontender abdomen, no CVA tenderness, abdominal symptoms may be related to viral syndrome. Patient given note for school. She is aware to return with new or worsening symptoms. States her headache pain is 4/10, decreased from 6/10 2256 Updated patient on lab work. Plan to discharge patient home with medication for migraines and follow-up with PCP. Clinical Impression Nonintractable headache, unspecified chronicity pattern, unspecified headache type (Primary) Disposition: Discharge I, JUANA VICTOR, Founding Partner, acting as a scribe, am personally taking down the notes in the presence of ANA Gee. Take no action on this note until reviewed and authenticated by the physician. ANA Gee 03/10/18 [id number] Cosigned by Ridge Fontana MD at 03/14/2018 3:34 AM CIGAR SORTER R SORTER R SORTER * Geetha Lord RN - 03/10/2018 8:58 PM CST Pt here with c/o of a headache that has been going on and off for about two weeks. Pt states nothing makes it better . Pain at this time is 10/10. Pt is AOx4. R SORTER documented in this encounter Plan of Treatment Not on file documented as of this encounter Procedures Procedure Name Priority Date/Time Associated Diagnosis Comments URINALYSIS STAT 03/10/2018 10:05 PM CIGAR SORTER COMPREHENSIVE METABOLIC PANEL STAT 03/10/2018 10:05 PM CIGAR SORTER CBC W/DIFF AUTOMATED STAT 03/10/2018 10:05 PM CIGAR SORTER LIPASE STAT 03/10/2018 10:05 PM CIGAR SORTER documented in this encounter Results * (ABNORMAL) URINALYSIS (03/10/2018 10:05 PM CIGAR SORTER) SPECIMEN TYPE URINE CLEAN CATCH 03/10/2018 9:59 PM [facility] COLOR (U) YELLOW 03/10/2018 10:20 PM [facility] TRANSPARENCY CLEAR 03/10/2018 10:20 PM [facility] SPECIFIC GRAVITY (U) 1.026 1.001 - 1.030 03/10/2018 10:20 PM [facility] U PH 6.0 5.0 - 9.0 03/10/2018 10:20 PM [facility] LEUKOCYTES (U) NEGATIVE NEGATIVE 03/10/2018 10:20 PM [facility] NITRITES NEGATIVE NEGATIVE 03/10/2018 10:20 PM [facility] PROTEIN (U) NEGATIVE <30 MG/DL 03/10/2018 10:20 PM [facility] URINE GLUCOSE NEGATIVE NEGATIVE MG/DL 03/10/2018 10:20 PM [facility] KETONES MG/DL (U) NEGATIVE NEGATIVE MG/DL 03/10/2018 10:20 PM [facility] UROBILINOGEN 4.0(A) NEGATIVE MG/DL 03/10/2018 10:20 PM CIGAR SORTER [facility] BILIRUBIN (U) NEGATIVE NEGATIVE MG/DL 03/10/2018 10:20 PM [facility] BLOOD (U) SMALL(A) NEGATIVE 03/10/2018 10:20 PM [facility] CULTURE & SENSITIVITY INDICATED? CULTURE IS NOT INDICATED 03/10/2018 10:20 PM [facility] URINE SPECIMEN OBTAINED BY CLEAN CATCH PROCEDURE / Unknown 03/10/2018 10:05 PM CIGAR SORTER us Rika Troy [facility] URINE ORDERABLES Final Resu lt Performing Organization Address City/[facility]/ZIP Co de Phone Number [facility] [address] [place] [address], [place] [phone] * LIPASE (03/10/2018 10:05 PM CIGAR SORTER) LIPASE 160 73 - 393 UNITS/L 03/10/2018 10:41 PM [facility] 03/10/2018 10:0 5 PM CIGAR SORTER us Rika Troy [facility] Final Resul t Performing Organization Address City/[facility]/ZIP Co de Phone Number [facility] [address] [place] [address], [place] [phone] * (ABNORMAL) COMPREHENSIVE METABOLIC PANEL (03/10/2018 10:05 PM CIGAR SORTER) GLUCOSE 91 70 - 99 MG/DL 03/10/2018 10:41 PM CIGAR SORTER [facility] BUN 16 7 - 18 MG/DL 03/10/2018 10:41 PM [facility] CREATININE S/P/B 0.84 0.55 - 1.02 MG/DL 03/10/2018 10:41 PM [facility] SODIUM S/P/B 142 136 - 145 MMOL/L 03/10/2018 10:41 PM [facility] POTASSIUM S/P/B 3.7 3.5 - 5.1 MMOL/L 03/10/2018 10:41 PM [facility] CHLORIDE S/P/B 109(H) 100 - 108 MMOL/L 03/10/2018 10:41 PM [facility] CO2 28.3 21 - 32 MMOL/L 03/10/2018 10:41 PM [facility] CALCIUM S/P/B 8.7 8.5 - 10.1 MG/DL 03/10/2018 10:41 PM [facility] BILIRUBIN TOTAL S/P/B 0.4 0.2 - 1.2 MG/DL 03/10/2018 10:41 PM [facility] TOTAL PROTEIN S/P/B 7.7 6.4 - 8.2 G/DL 03/10/2018 10:41 PM [facility] ALBUMIN S/P/B 3.8 3.4 - 5.0 G/DL 03/10/2018 10:41 PM [facility] AST 11(L) 15 - 37 U/L 03/10/2018 10:41 PM [facility] ALT 16 14 - 55 U/L 03/10/2018 10:41 PM [facility] ALKALINE PHOSPHATASE S/P/B 75 50 - 136 U/L 03/10/2018 10:41 PM [facility] ANION GAP 8.4 8 - 20 MMOL/L 03/10/2018 10:41 PM [facility] BUN CREATININE RATIO 19.1 6 - 26 03/10/2018 10:41 PM CIGAR SORTER [facility] A/G RATIO 1.0 1.0 - 2.0 RATIO 03/10/2018 10:41 PM [facility] EGFR NON-AFR. AMER. >90 >90 ML/MIN/1.7 3 M2 03/10/2018 10:41 PM [facility] EGFR AFR. AMER. >90 >90 ML/MIN/1.7 3 M2 03/10/2018 10:41 PM [facility] Comment: NOTE: eGFR is not calculated for patients <18 years of age. This is an estimated GFR (CKD EPI) and should not be used for calculating drug doses. 03/10/2018 10:0 5 PM CIGAR SORTER Rika Troy [facility] Final Resul t [facility] [address] [place] [address], [place] [phone] * (ABNORMAL) CBC W/DIFF AUTOMATED (03/10/2018 10:05 PM CIGAR SORTER) WBC 7.9 4.5 - 11.0 x10'3/uL 03/10/2018 10:16 PM [facility] RBC 4.40 4.20 - 5.40 x10'6/uL 03/10/2018 10:16 PM [facility] HGB 13.0 12.0 - 16.0 G/DL 03/10/2018 10:16 PM [facility] HCT 39.2 38.0 - 48.0 % 03/10/2018 10:16 PM [facility] MCV 89.1 81.0 - 99.0 FL 03/10/2018 10:16 PM [facility] MCH 29.5 27.0 - 31.0 PG 03/10/2018 10:16 PM [facility] MCHC 33.2 32.0 - 36.0 G/DL 03/10/2018 10:16 PM [facility] RDW 13.0 11.5 - 14.5 % 03/10/2018 10:16 PM [facility] PLT 369 130 - 400 x10'3/uL 03/10/2018 10:16 PM [facility] MPV 9.6 9.3 - 12.2 FL 03/10/2018 10:16 PM [facility] DIFFERENTIAL TYPE AUTOMATED DIFFERENTIAL 03/10/2018 10:16 PM [facility] NEUTROPHILS % 47.0 % 03/10/2018 10:16 PM [facility] LYMPHOCYTES % 39.9 % 03/10/2018 10:16 PM [facility] MONOCYTES % 10.0 % 03/10/2018 10:16 PM [facility] EOSINOPHILS 1.9 % 03/10/2018 10:16 PM [facility] BASOPHILS 0.9 % 03/10/2018 10:16 PM [facility] IMMATURE GRANS % 0.3(H) 0 % 03/10/19 19 10:16 PM [facility] ABS. NEUTROPHILS TOTAL 3.71 1.80 - 7.70 x10'3/uL 03/10/2018 10:16 PM [facility] ABS. LYMPHOCYTES 3.15 1.00 - 4.80 x10'3/uL 03/10/2018 10:16 PM [facility] ABS. MONOCYTES 0.79 0.24 - 0.86 x10'3/uL 03/10/2018 10:16 PM [facility] ABS. EOSINOPHILS 0.15 0.04 - 0.36 x10'3/uL 03/10/2018 10:16 PM CIGAR SORTER [facility] ABS. BASOPHILS 0.07 0.01 - 0.08 x10'3/uL 03/10/2018 10:16 PM CIGAR SORTER [facility] ABS. IMMATURE GRANULOCYTES 0.02 0.00 - 0.03 x10'3/uL 03/10/2018 10:16 PM CIGAR SORTER [facility] 03/10/2018 10:0 5 PM CIGAR SORTER us Rika Troy [facility] Final Resul t [facility] [address] [place] [address], [place] [phone] documented in this encounter Visit Diagnoses Diagnosis Nonintractable headache, unspecified chronicity pattern, unspecified headache type- Primary documented in this encounter Administered Medications Inactive Administered Medications - up to 3 most recent administrations Medication Order MAR Action Action Date Dose Rate Site [id number]-[id number] (FIORINAL) capsule 1 capsule 1 capsule, Oral, Once, 1 dose, On 03/10/18 at 2200 Given 03/10/2018 10:28 PM CIGAR SORTER 1 capsule documented in this encounter Active and Recently Administered Medications Times are shown in CIGAR SORTER. Scheduled Medication Order 03/08/2018 03/09/2018 03/10/2018 [id number] (FIORINAL) capsule 1 capsule (COMPLETED) 1 capsule, Oral, Once, 1 dose, On 03/10/18 at 2200 2228 (Given - Provid er: Cj Garza RN) documented in this encounter Care Teams Medical Payment Poster Relationship Specialty Start Date End Date Kit Arriola MD [address] [address] PCP - General 12/01/15 07/13/20 documented as of this encounter
--- OUTSIDE RECORDS SUMMARY | 2024-02-17 13:39 | XMS_ITS | Encounter Summary ---
Author Organization [facility] Address [address] [facility] [place] [address] [place] [address] Care Team Providers Care Silver Chaser Name Role Phone Kit Arriola MD Primary Care Provider [phone] Reason for Referral * Imaging (Emergency) - Closed Specialty Diagnoses / Procedures Referred By Contac t Referred To Contact Procedures US OB <14WKS TA+TV US OB <14WKS TA Richi Vargas MD [address] [address] Phone: tel: fax: Referral ID Status Reason Start Date Expiration Date Visits Re quested Visits Authorized [id number] Closed 11/23/2017 12/24/2018 1 1 Reason for Visit * Reason Comments Complications Dizziness Encounter Details Date Type Department Care Team (Late st Contact Info) Description 11/23/2017 8:03 PM CDT - 11/24/2017 12:55 AM CDT Emergency [facility] [place] [address] Richi Vargas MD [address] [address] Complications; Dizziness Discharge Disposition: Home or Self Care (Routine [...] Sign Reading Time Taken Comments Blood Pressure 110/88 11/24/2017 12:09 AM CDT Pulse 87 11/24/2017 12:09 AM CDT Temperature 37.2 ??C (98.9 ??F) 11/23/2017 7:52 PM CD T Respiratory Rate 18 11/24/2017 12:09 AM CDT Oxygen Saturation 99% 11/24/2017 12:09 AM CDT Inhaled Oxygen Concentration - - Weight 78.6 kg (173 lb 3.2 oz) 11/23/2017 7:52 P M CDT Height 165.1 cm (5' 5 ) 11/23/2017 7:52 PM CDT Body Mass Index 28.82 11/23/2017 7:52 PM CDT documented in this encounter Discharge Instructions * Discharge Instructions* Richi Vargas MD - 11/24/2017 12:16 AM CDT Please followup with your OBGYN or Dr. Antonio as needed for further evaluation and treatment. * Attachments The following attachments cannot be sent through Care Everywhere. * ACUTE ABDOMEN (BELLY PAIN) (GRENADIAN) * ECTOPIC DISCHARGE INSTRUCTIONS (GRENADIAN) documented in this encounter H&P Notes * Dorothy Antonio MD - 11/24/2017 12:13 AM CDT Gynecology History and Physical CC: Abdominal Pain, ectopic HPI: Patient is a 27-year-old female with known ectopic . She is s/p MTX tx 1 week ago and presenting to the ED with RLQ pain. States she has had the pain since the MTX injection but it has been getting slightly worse over the next 3 days. Also notes she had nausea/emesis and diarrhea followingMTX injection but now improved. Past Medical History: Diagnosis Date ??? Ectopic ??? Kidney stones ??? PCOS (polycystic ovarian syndrome) Past Surgical History: Procedure Laterality Date ??? CHOLECYSTECTOMY Social History Tobacco Use ??? Smoking status: Never Smoker ??? Smokeless tobacco: Never Used Substance Use Topics ??? Alcohol use: No Comment: rare use Family History Problem Relation Age of Onset ??? Hypertension Father ??? Diabetes Father (Not in a hospital admission) Allergies Allergen Reactions ??? Morphine Hives and Itching Review of systems: Review of Systems Constitutional: Negative for chills and fever. Respiratory: Negative for shortness of breath. Cardiovascular: Negative for chest pain. Gastrointestinal: Positive for abdominal pain, diarrhea, nausea and vomiting. Skin: Negative for rash. Neurological: Positive for dizziness. Physical Exam: Filed Vitals: 11/23/17195111/23/17195311/23/179 11/24/17 0009 BP: (!) 134/94 122/81 110/88 Pulse: 115 81 87 Resp: Temp: 98.9 ??F (37.2 ??C) SpO2: 98% 100% 99% Weight: 78.6 kg (173 lb 3.2 oz) Height: 5' 5 (1.651 m) Physical Exam Gen: NAD, appears comfortable Heart: Regular rate Resp: Non-labored Abd: Soft, minimally TTP over RLQ, no r/g - patient very comfortable during exam Labs: Recent Labs Lab 11/23/172028 WBC 8.9 RBC 4.23 HGB 12.3 HCT 37.5* MCV 88.7 MCH 29.1 MCHC 32.8 PLT 334 RDW 12.7 MPV 10.0 PERNEU 59.5 PERLYM 30.8 PERMON 7.0 LYMC 2.74 MONOC 0.62 EOSC 0.17 BASOC 0.04 DTYPE AUTOMATED DIFFERENTIAL HCG 120 Imaging: HISTORY: Patient states she has known ectopic that is being treated medically with methotrexate. Received methotrexate over one week ago. Current abdominal and pelvic pain worsened. COMPARISON: None FINDINGS: The uterus is anteverted and anteflexed. There is no uterine mass or cyst. The endometrial stripe is normal in appearance. There is a small amount of simple appearing free fluid in the pelvic cul-de-sac. There is a 2.1 x 0.8 x 2.0 cm intermediately echogenic focus adjacent to the right ovary which may represent the ectopic . No blood flow is seen within the mass. Both ovaries demonstrate normal vascular flow with color and spectral Doppler. MEASUREMENTS: Uterus: 7.6 x 3.5 x 5.3 cm Endometrial stripe: 2.5 mm Right ovary: 4.2 x 2.6 x 2.1 cm Left ovary: 2.0 x 4.4 x 2.1 cm ?? IMPRESSION: 1. Small intermediate echogenic focus adjacent to the right ovary possibly may represent the ectopic described in history. This focus demonstrates no internal flow. Otherwise unremarkable exam. Assessment: 27 yo with know right ectopic currently undergoing medical management with MTX injection 1 week ago. Presenting to ED with worsening RLQ pain. Day 4 HCG was 210 and HCG today 120 consistentwith adequate response (although different lab, and repeat from quest is pending and will result tomorrow). There is no clinical evidence of tubal rupture, ultrasound is essentially unchanged from previous with no evidence of complex free fluid to suggest blood. Hgb is 12.3. Patient was counseled on findings and that clinically she seems to be responding well to MTX and there is no current evidence of tubal rupture. I discussed that sometimes pain can worsen before improving with MTX therapy. However, she was offered surgical management if she did not desire to continue with medical management at this time. She was informed that while low, there is still a small chance of treatment failure and/or tubal rupture. After considering her options she has chosen to continue with medical management and serial HCG monitoring at this time. I reviewed sx of tubal rupture and when to return to ED if needed. Plan: Patient is stable for discharge my Assistant Professor Of Music standpoint She will follow up with us in clinic next week for serial HCG monitoring Restrictions reviewed with patient. )DOROTHY ANTONIO MD documented in this encounter ED Notes * Richi Vargas MD - 11/23/2017 10:40 PM CDT Chief Complaint Chief Complaint Patient presents with ??? Complications ??? Dizziness History of Present Illness 27 y/o female with pmhx of PCOS presents to the ED with pelvic pain for the past 3 days. The pain has been constant and is associated with intermittent cramping. Pt had an ectopic two weeks ago and is being treated with Methotrexate since the diagnosis. She had similar pain at this time, but it resolved, prior to 3 days ago. She also c/o watery diarrhea, nausea, dysuria, and urinary frequency. Denies vomiting, fever, cough, or hematuria. Medical History ALLERGIES: Allergies Allergen Reactions ??? Morphine Hives and Itching MEDICATIONS: Prior to Admission medications Not on File PAST MEDICAL HISTORY: Past Medical History: Diagnosis Date ??? Ectopic ??? Kidney stones ??? PCOS (polycystic ovarian syndrome) PAST SURGICAL HISTORY: Past Surgical History: Procedure Laterality Date ??? CHOLECYSTECTOMY FAMILY HISTORY: Family History Problem Relation Age of Onset ??? Hypertension Father ??? Diabetes Father SOCIAL HISTORY: Social History Tobacco Use ??? Smoking status: Never Smoker ??? Smokeless tobacco: Never Used Substance Use Topics ??? Alcohol use: No Comment: rare use ??? Drug use: No Review of Systems Review of Systems Constitutional: Negative for fever. Respiratory: Negative for cough, chest tightness and shortness of breath. Cardiovascular: Negative for chest pain. Gastrointestinal: Positive for abdominal pain, diarrhea (watery) and nausea. Negative for vomiting. Abdominal cramping. Genitourinary: Positive for dysuria and frequency. Negative for hematuria. Musculoskeletal: Negative for back pain and myalgias. Neurological: Negative for light-headedness, numbness and headaches. All other systems reviewed and are negative. Physical Exam Filed Vitals: 11/23/17195111/23/17195311/23/17 2229 BP: (!) 134/94 122/81 Pulse: 115 81 Resp: 20 18 Temp: 98.9 ??F (37.2 ??C) SpO2: 98% 100% Weight: 78.6 kg (173 lb 3.2 oz) Height: 5' 5 (1.651 m) Physical Exam Constitutional: She appears well-developed and well-nourished. HENT: Head: Normocephalic and atraumatic. Eyes: Pupils are equal, round, and reactive to light. Neck: Neck supple. No tracheal deviation present. Cardiovascular: Normal rate, regular rhythm and normal heart sounds. Exam reveals no gallop and no friction rub. No murmur heard. Pulmonary/Chest: Effort normal and breath sounds normal. No respiratory distress. She has no wheezes. She has no rales. Abdominal: Soft. Bowel sounds are normal. She exhibits no distension. There is no tenderness. Thereis no rebound. Musculoskeletal: Moving all extremities Neurological: Awake and alert Skin: Skin is warm and dry. No erythema. Psychiatric: She has a normal mood and affect. Her behavior is normal. Diagnostic Studies / Procedures ELECTROCARDIOGRAMS: No results found for this visit on 11/23/17. LABORATORY STUDIES: Results for orders placed or performed during the hospital encounter of 11/23/17 CBC W/DIFF AUTOMATED Result Value Ref Range WBC 8.9 4.5 - 11.0 x10'3/uL RBC 4.23 4.20 - 5.40 x10'6/uL HGB 12.3 12.0 - 16.0 G/DL HCT 37.5 (L) 38.0 - 48.0 % MCV 88.7 80.0 - 94.0 FL MCH 29.1 27.0 - 31.0 PG MCHC 32.8 32.0 - 36.0 G/DL RDW 12.7 11.5 - 14.5 % PLT 334 130 - 400 x10'3/uL MPV 10.0 9.3 - 12.2 FL DIFFERENTIAL TYPE AUTOMATED DIFFERENTIAL NEUTROPHILS 59.5 % LYMPHOCYTES 30.8 % MONOCYTES 7.0 % EOSINOPHILS 1.9 % BASOPHILS 0.4 % IMMATURE GRANS 0.4 (H) 0 % ABS. NEUTROPHILS TOTAL 5.30 1.80 - 7.70 x10'3/uL ABS. LYMPHOCYTES 2.74 1.00 - 4.80 x10'3/uL ABS. MONOCYTES 0.62 0.24 - 0.86 x10'3/uL ABS. EOSINOPHILS 0.17 0.04 - 0.36 x10'3/uL ABS. BASOPHILS 0.04 0.01 - 0.08 x10'3/uL ABS. IMMATURE GRANULOCYTES 0.04 (H) 0.00 - 0.03 x10'3/uL COMPREHENSIVE METABOLIC PANEL Result Value Ref Range GLUCOSE 99 70 - 99 MG/DL BUN 8 7 - 18 MG/DL CREATININE 0.78 0.55 - 1.02 MG/DL SODIUM 139 136 - 145 MMOL/L POTASSIUM 3.6 3.5 - 5.1 MMOL/L CHLORIDE 108 100 - 108 MMOL/L CO2 26.9 21 - 32 MMOL/L CALCIUM 8.8 8.5 - 10.1 MG/DL TOTAL BILIRUBIN 0.3 0.2 - 1.2 MG/DL TOTAL PROTEIN 7.2 6.4 - 8.2 G/DL ALBUMIN 3.7 3.4 - 5.0 G/DL AST 13 (L) 15 - 37 U/L ALT 22 14 - 55 U/L ALK PHOS 59 50 - 136 U/L ANION GAP 7.7 (L) 8 - 20 MMOL/L BUN CREATININE RATIO 10.3 6 - 26 A/G RATIO 1.1 1.0 - 2.0 RATIO eGFR Non-Afr. Amer. >90 >90 ML/MIN/1.73 M2 eGFR Afr. Amer. >90 >90 ML/MIN/1.73 M2 Quantitative HCG Result Value Ref Range HCG, QUANTITATIVE 120 MIU/ML URINALYSIS Result Value Ref Range Specimen Type URINE CLEAN CATCH COLOR YELLOW TRANSPARENCY CLEAR Specific [place] (U) 1.017 1.001 - 1.030 U PH 7.0 5.0 - 9.0 LEUKOCYTE ESTERASE NEGATIVE NEGATIVE NITRITES NEGATIVE NEGATIVE PROTEIN, URINE NEGATIVE <30 MG/DL URINE GLUCOSE NEGATIVE NEGATIVE MG/DL U KETONES NEGATIVE NEGATIVE MG/DL UROBILINOGEN NEGATIVE NEGATIVE MG/DL Urine Bilirubin NEGATIVE NEGATIVE MG/DL BLOOD NEGATIVE NEGATIVE CULTURE & SENSITIVITY INDICATED? CULTURE IS NOT INDICATED TYPE AND SCREEN Result Value Ref Range ABO/RH A POSITIVE ANTIBODY SCREEN NEGATIVE SAMPLE EXPIRATION: 11/26/2017 IMAGING STUDIES US OB <14WKS TA+TV (Results Pending) ED Course / Medical Decision Making 11:30 PM I spoke with Dr. Antonio who agrees to come evaluate patient. 12:[address] Antonio. Agrees that patient is okay and ready for discharge. Clinical Impression None Disposition: Data Unavailable I, Chanell Tsai, acting as a scribe, am personally taking down the notes in the presence of Dr. Richi Vargas MD. Take no action on this note until reviewed and authenticated by the physician. Richi Vargas MD 11/25/17 1401 * Dinorah Casillas RN - 11/23/2017 9:25 PM CDT from [facility] here to see pt. * CRESENCIO Montes - 11/23/2017 8:20 PM CDT [place], [place] EMERGENCY DEPARTMENT ENCOUNTER Medical Screening Examination 11/23/17 8:20 PM Chief Complaint : Complications and Dizziness HPI : Roxana Amos is a 27-year-old female who presents to emergency department complaint of pelvic pain that has worsened over the past 1-2 days. Patient states she does currently have a ectopic that is being treated medically with methotrexate. Received methotrexate over 1 week ago. Abdominal and pelvic pain worsened. Was told by carton waxing machine operator to go to emergency department. Vital Signs: Filed Vitals: 11/23/17195111/23/171953 BP: (!) 134/94 Pulse: 115 Resp: 20 Temp: 98.9 ??F (37.2 ??C) SpO2: 98% Weight: 78.6 kg (173 lb 3.2 oz) Height: 5' 5 (1.651 m) Physical exam: A brief physical exam was completed to facilitate/expedite patient care. Garza findings include: Patient in no acute distress at this time Plan: Labs were ordered to facilitate patient care. CRESENCIO Montes 11/23/17 2020 Cosigned by Richi Vargas MD at 11/24/2017 2:18 AM CDT * Rhett Carrillo RN - 11/23/2017 7:53 PM CDT Pt ambulatory to the ED complaining of increasing cramping and dizziness recently. Dx with ectopic a week ago, states her carton waxing machine operator here requested she be seen, states they are talking about surgery. my levels are still high documented in this encounter Plan of Treatment Not on file documented as of this encounter Procedures Procedure Name Priority Date/Time Associated Diagnosis Comments US OB <14WKS TA+TV STAT 11/23/2017 10 :38 PM CDT URINALYSIS STAT 11/23/2017 9:49 PM CDT TYPE & SCREEN STAT 11/23/2017 8:29 PM CDT COMPREHENSIVE METABOLIC PANEL STAT 11/23/2017 8:29 PM CDT HCG QUANT (SERUM)-CHORIONIC GONADOTROPIN STAT 11/23/2017 8:29 PM CDT CBC W/DIFF AUTOMATED STAT 11/23/2017 8:29 PM CDT documented in this encounter Results * US OB <14WKS TA+TV (11/23/2017 10:38 PM CDT) Anatomical Region Laterality Modality Ultrasound 11/23/2017 11:0 5 PM CDT Impressions 11/23/2017 11:11 PM CDT IMPRESSION: 1. Small intermediate echogenic focus adjacent to the right ovary possibly may represent the ectopic described in history. This focus demonstrates no internal flow. Otherwise unremarkable exam. Narrative 11/23/2017 11:11 PM CDT PROCEDURE: US OB <14WKS TA+TV HISTORY: Patient states she has known ectopic that is being treated medically with methotrexate. Received methotrexate over one week ago. Current abdominal and pelvic pain worsened. COMPARISON: None FINDINGS: The uterus is anteverted and anteflexed. There is no uterine mass or cyst. The endometrial stripe is normal in appearance. There is a small amount of simple appearing free fluid in the pelvic cul-de-sac. There is a 2.1 x 0.8 x 2.0 cm intermediately echogenic focus adjacent to the right ovary which may represent the ectopic . No blood flow is seen within the mass. Both ovaries demonstrate normal vascular flow with color and spectral Doppler. MEASUREMENTS: Uterus: 7.6 x 3.5 x 5.3 cm Endometrial stripe: 2.5 mm Right ovary: 4.2 x 2.6 x 2.1 cm Left ovary: 2.0 x 4.4 x 2.1 cm Procedure Note Yfn Stein MD - 11/23/2017 PROCEDURE: US OB <14WKS TA+TV HISTORY: Patient states she has known ectopic that is being treated medically with methotrexate. Received methotrexate over one week ago. Current abdominal and pelvic pain worsened. COMPARISON: None FINDINGS: The uterus is anteverted and anteflexed. There is no uterinemass or cyst. The endometrial stripe is normal in appearance. There is asmall amount of simple appearing free fluid in the pelvic cul-de-sac. There reba 2.1 x 0.8 x 2.0 cm intermediately echogenic focus adjacent to the right ovary which may represent the ectopic . No blood flow is seen within the mass. Both ovaries demonstrate normal vascular flow withcolor and spectral Doppler. MEASUREMENTS: Uterus: 7.6 x 3.5 x 5.3 cm Endometrial stripe: 2.5 mm Right ovary: 4.2 x 2.6 x 2.1 cm Left ovary: 2.0 x 4.4 x 2.1 cm IMPRESSION: 1. Small intermediate echogenic focus adjacent to the right ovarypossibly may represent the ectopic described in history. This focus demonstrates no internal flow. Otherwise unremarkable exam. Richi Vargas MD ULTRASOUND Final Result * URINALYSIS (11/23/2017 9:49 PM CDT) SPECIMEN TYPE URINE CLEAN CATCH 11/23/2017 8:57 PM CDT [facility] COLOR (U) YELLOW 11/23/2017 9:58 PM CDT [facility] TRANSPARENCY CLEAR 11/23/2017 9:58 PM CDT [facility] SPECIFIC GRAVITY (U) 1.017 1.001 - 1.030 11/23/2017 9:58 PM CDT [facility] U PH 7.0 5.0 - 9.0 11/23/2017 9:58 PM CDT [facility] LEUKOCYTES (U) NEGATIVE NEGATIVE 11/23/2017 9:58 PM CDT [facility] NITRITES NEGATIVE NEGATIVE 11/23/2017 9:58 PM CDT [facility] PROTEIN (U) NEGATIVE <30 MG/DL 11/23/2017 9:58 PM CDT [facility] URINE GLUCOSE NEGATIVE NEGATIVE MG/DL 11/23/2017 9:58 PM CDT [facility] KETONES MG/DL (U) NEGATIVE NEGATIVE MG/DL 11/23/2017 9:58 PM CDT [facility] UROBILINOGEN NEGATIVE NEGATIVE MG/DL 11/23/2017 9:58 PM CDT [facility] BILIRUBIN (U) NEGATIVE NEGATIVE MG/DL 11/23/2017 9:58 PM CDT [facility] BLOOD (U) NEGATIVE NEGATIVE 11/23/2017 9:58 PM CDT [facility] CULTURE & SENSITIVITY INDICATED? CULTURE IS NOT INDICATED 11/23/2017 9:58 PM CDT [facility] URINE SPECIMEN OBTAINED BY CLEAN CATCH PROCEDURE / Unknown 11/23/2017 9:49 PM CDT [facility] URINE ORDERABLES Final Resu lt [facility] [address] [place] [address], * TYPE AND SCREEN (11/23/2017 8:29 PM CDT) ABO/RH A POSITIVE 11/23/2017 9:40 PM CDT [facility] ANTIBODY SCREEN NEGATIVE 8 9:40 PM CDT [facility] SAMPLE EXPIRATION 11/26/2017 11/23/2017 9:40 PM CDT [facility] 11/23/2017 8:29 PM CDT [facility] BLOOD BANK TEST ORDERABLES Final Result [facility] [address] [place] [address], * Quantitative HCG (11/23/2017 8:29 PM CDT) HCG QUANTITATIVE 120 MIU/ML 11/24/19 18 9:08 PM CDT [facility] Comment: WEEKS OF ? REFERENCE RANGES [...] 2 - 3 MONTHS ?10,000 - 100,000 11/23/2017 8:29 PM CDT [facility] Final Resul t [facility] [address] [place] [address], * (ABNORMAL) COMPREHENSIVE METABOLIC PANEL (11/23/2017 8:29 PM CDT) [facility] Signature GLUCOSE 99 70 - 99 MG/DL 11/23/2017 9:08 PM CDT [facility] BUN 8 7 - 18 MG/DL 11/23/2017 9:08 PM CDT [facility] CREATININE S/P/B 0.78 0.55 - 1.02 MG/DL 11/23/2017 9:08 PM CDT [facility] SODIUM S/P/B 139 136 - 145 MMOL/L 11/23/2017 9:08 PM CDT [facility] POTASSIUM S/P/B 3.6 3.5 - 5.1 MMOL/L 11/23/2017 9:08 PM CDT [facility] CHLORIDE S/P/B 108 100 - 108 MMOL/L 11/23/2017 9:08 PM CDT [facility] CO2 26.9 21 - 32 MMOL/L 11/23/2017 9:08 PM CDT [facility] CALCIUM S/P/B 8.8 8.5 - 10.1 MG/DL 11/23/2017 9:08 PM CDT [facility] BILIRUBIN TOTAL S/P/B 0.3 0.2 - 1.2 MG/DL 11/23/2017 9:08 PM CDT [facility] TOTAL PROTEIN S/P/B 7.2 6.4 - 8.2 G/DL 11/23/2017 9:08 PM CDT [facility] ALBUMIN S/P/B 3.7 3.4 - 5.0 G/DL 11/23/2017 9:08 PM CDT [facility] AST 13(L) 15 - 37 U/L 11/23/2017 9:08 PM CDT [facility] ALT 22 14 - 55 U/L 11/23/2017 9:08 PM CDT [facility] ALKALINE PHOSPHATASE S/P/B 59 50 - 136 U/L 11/23/2017 9:08 PM CDT [facility] ANION GAP 7.7(L) 8 - 20 MMOL/L 11/23/2017 9:08 PM CDT [facility] BUN CREATININE RATIO 10.3 6 - 26 11/23/2017 9:08 PM CDT [facility] A/G RATIO 1.1 1.0 - 2.0 RATIO 11/23/2017 9:08 PM CDT [facility] EGFR NON-AFR. AMER. >90 >90 ML/MIN/1.7 3 M2 11/23/2017 9:08 PM CDT [facility] EGFR AFR. AMER. >90 >90 ML/MIN/1.7 3 M2 11/23/2017 9:08 PM CDT [facility] Comment: NOTE: eGFR is not calculated for patients <18 years of age. This is an estimated GFR (CKD EPI) and should not be used for calculating drug doses. 11/23/2017 8:29 PM CDT [facility] Final Resul t [facility] [address] [place] [address], [place] [phone] * (ABNORMAL) CBC W/DIFF AUTOMATED (11/23/2017 8:29 PM CDT) WBC 8.9 4.5 - 11.0 x10'3/uL 11/23/2017 8:42 PM CDT [facility] RBC 4.23 4.20 - 5.40 x10'6/uL 11/23/2017 8:42 PM CDT [facility] HGB 12.3 12.0 - 16.0 G/DL 11/23/2017 8:42 PM CDT [facility] HCT 37.5(L) 38.0 - 48.0 % 11/23/2017 8:42 PM CDT [facility] MCV 88.7 80.0 - 94.0 FL 11/23/2017 8:42 PM CDT [facility] MCH 29.1 27.0 - 31.0 PG 11/23/2017 8:42 PM CDT [facility] MCHC 32.8 32.0 - 36.0 G/DL 11/23/2017 8:42 PM CDT [facility] RDW 12.7 11.5 - 14.5 % 11/23/2017 8:42 PM CDT [facility] PLT 334 130 - 400 x10'3/uL 11/23/2017 8:42 PM CDT [facility] MPV 10.0 9.3 - 12.2 FL 11/23/2017 8:42 PM CDT [facility] DIFFERENTIAL TYPE AUTOMATED DIFFERENTIAL 11/23/2017 8:42 PM CDT [facility] NEUTROPHILS % 59.5 % 11/23/2017 8:42 PM CDT [facility] LYMPHOCYTES % 30.8 % 11/23/2017 8:42 PM CDT [facility] MONOCYTES % 7.0 % 11/23/2017 8:42 PM CDT [facility] EOSINOPHILS 1.9 % 11/23/2017 8:42 PM CDT [facility] BASOPHILS 0.4 % 11/23/2017 8:42 PM CDT [facility] IMMATURE GRANS % 0.4(H) 0 % 11/24/19 8:42 PM CDT [facility] ABS. NEUTROPHILS TOTAL 5.30 1.80 - 7.70 x10'3/uL 11/23/2017 8:42 PM CDT [facility] ABS. LYMPHOCYTES 2.74 1.00 - 4.80 x10'3/uL 11/23/2017 8:42 PM CDT [facility] ABS. MONOCYTES 0.62 0.24 - 0.86 x10'3/uL 11/23/2017 8:42 PM CDT [facility] ABS. EOSINOPHILS 0.17 0.04 - 0.36 x10'3/uL 11/23/2017 8:42 PM CDT [facility] ABS. BASOPHILS 0.04 0.01 - 0.08 x10'3/uL 11/23/2017 8:42 PM CDT [facility] ABS. IMMATURE GRANULOCYTES 0.04(H) 0.00 - 0.03 x10'3/uL 11/23/2017 8:42 PM CDT [facility] 11/23/2017 8:29 PM CDT [facility] Final Resul t [facility] [address] [place] [address], [place] [phone] documented in this encounter Visit Diagnoses Diagnosis Abdominal pain- Primary Abdominal pain, unspecified site documented in this encounter Administered Medications Inactive Administered Medications - up to 3 most recent administrations Medication Order MAR Action Action Date Dose Rate Site ondansetron (ZOFRAN-ODT) disintegrating tablet 4 mg 4 mg, Oral, Once, 1 dose, On Sun11/23/17 at 2130 Given 11/23/2017 9:26 PM CDT 4 mg documented in this encounter Active and Recently Administered Medications Times are shown in CDT. Scheduled Medication Order 11/22/2017 11/23/2017 11/24/2017 ondansetron (ZOFRAN-ODT) disintegrating tablet 4 mg (COMPLETED) 4 mg, Oral, Once, 1 dose, On Sun11/23/17 at 2130 2126 (Given - Provider: Jerry Casillas RN)2130 (Due) documented in this encounter Care Teams Silver Chaser Relationship Specialty Start Date End Date Kit Arriola MD [address] [address] PCP - General 12/01/15 07/13/20 documented as of this encounter
--- OUTSIDE RECORDS SUMMARY | 2024-02-17 13:39 | XMS_ITS | Encounter Summary ---
Author Organization [facility] Address [address] [place] [address] [place] [address] Care Team Providers Care Retail Manager In Training Name Role Phone Kit Arriola MD Primary Care Provider [phone] Encounter Details Date Type Department Care Team (Late st Contact Info) Description 12/01/2015 Abstract [facility] [address] [place], [place] [id number] Pilar Narvaez, MANUELA [address] [place] [address] Social History Tobacco Use Types Packs/Day Years Used Date Smoking Tobacco: Never Assessed Comments Unknown Sex and Gender Information Value Date Recorded Sex Assigned at Not on file Legal Sex Female 8:13 PM CDT Gender Identity Not on file Sexual Orientation Not on file documented as of this encounter Plan of Treatment Not on file documented as of this encounter Procedures Procedure Name Priority Date/Time Associated Diagnosis Comments BMP W IONIZED CA WH BLOOD STAT 12/01/2015 1:09 PM CDT CBC, AUTO, NO DIFF STAT 12/01/2015 1: 09 PM CDT TEST URINE STAT 12/01/2015 1:08 PM CDT URINALYSIS AUTO DIP STAT 12/01/2015 1 :08 PM CDT documented in this encounter Results * BMP W IONIZED CA WH BLOOD (12/01/2015 1:09 PM CDT) GLUCOSE POC 89 70 - 99 mg/dL 12/01/2015 1:30 PM CDT [facility] Comment: TESTING PERFORMED AT [address] ??[id number] ELAN WADE M.D., SENIOR VALIDATION ENGINEER BUN WHOLE BLOOD 13 8 - 23 mg/dL 12/01/2015 1:30 PM CDT [facility] CREATININE WHOLE BLOOD 0.7 0.60 - 1.10 mg/dL 12/01/2015 1:30 PM CDT [facility] SODIUM WHOLE BLOOD 140 136 - 145 mmol/L 12/01/2015 1:30 PM CDT [facility] POTASSIUM WHOLE BLOOD 3.8 3.5 - 5.1 mmol/L 12/01/2015 1:30 PM CDT [facility] CHLORIDE WHOLE BLOOD 102 98 - 107 mmol/L 12/01/2015 1:30 PM CDT [facility] POC CO2 WHOLE BLOOD 23 22 - 29 mmol/L 12/01/2015 1:30 PM CDT [facility] CA IONIZED WH BLOOD 1.19 1.12 - 1.32 mmol/L 12/01/2015 1:30 PM CDT [facility] ANION GAP 18.8 8 - 20 MMOL/L 12/01/2015 1:30 PM CDT [facility] EGFR NON-AFR. AMER. >60 >60 mL/min/1.7 3m'2 12/01/2015 1:30 PM CDT [facility] EGFR AFR. AMER. >60 >60 mL/min/1.7 3m'2 12/01/2015 1:30 PM CDT [facility] Comment: NOTE: eGFR is not calculated for patients <18 years of age. This is an estimated GFR (CKD EPI) and should not be used for calculating drug doses. 12/01/2015 1:09 PM CDT 12/01/2015 1:25 PM CDT us Generic Conversion [facility] Final R esult [facility] [address] [place] [address], * (ABNORMAL) CBC, AUTO, NO DIFF (12/01/2015 1:09 PM CDT) WBC 5.8 4.8 - 10.8 X10'3/uL 12/01/2015 1:31 PM CDT [facility] Comment: TESTING PERFORMED AT [address] ??[id number] ELAN WADE M.D., SENIOR VALIDATION ENGINEER RBC 4.48 4.20 - 5.40 X10'6/uL 12/01/2015 1:31 PM CDT [facility] HGB 13.1 12.0 - 16.0 g/dL 12/01/2015 1:31 PM CDT [facility] HCT 38.5 38.0 - 48.0 % 12/01/2015 1:31 PM CDT [facility] MCV 85.9 81.0 - 99.0 fL 12/01/2015 1:31 PM CDT [facility] MCH 29.2 27.0 - 31.0 pg 12/01/2015 1:31 PM CDT [facility] MCHC 34.0 32.0 - 36.0 g/dL 12/01/2015 1:31 PM CDT [facility] RDW 13.7 11.5 - 14.5 % 12/01/2015 1:31 PM CDT [facility] PLT 352 130 - 400 X10'3/uL 12/01/2015 1:31 PM CDT [facility] MPV 8.9(L) 9.3 - 12.2 fL 12/01/2015 1:31 PM CDT [facility] 12/01/2015 1:09 PM CDT 12/01/2015 1:25 PM CDT us Generic Conversion [facility] Final R esult [facility] [address] [place] [id number], [place] [phone] * (ABNORMAL) URINALYSIS AUTO DIP (12/01/2015 1:08 PM CDT) SOURCE (FLUID) URINE CLEAN CATCH 12/01/2015 1:08 PM CDT [facility] COLOR (U) YELLOW 12/01/2015 1:28 PM CDT [facility] Comment: TESTING PERFORMED AT [address] ??[phone] ELAN WADE M.D., SENIOR VALIDATION ENGINEER [place] 12/01/2015 1:28 PM CDT [facility] SPECIFIC GRAVITY (U) 1.030 1.001 - 1.030 12/01/2015 1:28 PM CDT [facility] U PH 6.0 5.0 - 9.0 12/01/2015 1:28 PM CDT [facility] LEUKOCYTES (U) NEGATIVE NEGATIVE 12/01/2015 1:28 PM CDT [facility] NITRITES NEGATIVE NEGATIVE 12/01/2015 1:28 PM CDT [facility] PROTEIN (U) NEGATIVE <30 MG/DL 12/01/2015 1:28 PM CDT [facility] URINE GLUCOSE NEGATIVE NEGATIVE MG/DL 12/01/2015 1:28 PM CDT [facility] KETONES MG/DL (U) NEGATIVE NEGATIVE MG/DL 12/01/2015 1:28 PM CDT [facility] UROBILINOGEN NEGATIVE NEGATIVE MG/DL 12/01/2015 1:28 PM CDT [facility] BILIRUBIN (U) NEGATIVE NEGATIVE MG/DL 12/01/2015 1:28 PM CDT [facility] BLOOD (U) LARGE(A) NEGATIVE 12/01/2015 1:28 PM CDT [facility] CULTURE & SENSITIVITY INDICATED? CULTURE IS NOT INDICATED 12/01/2015 1:28 PM CDT [facility] 12/01/2015 1:08 PM CDT 12/01/2015 1:19 PM CDT us Generic Conversion [facility] URINE ORDERABLES Final Result [facility] [address] [place] [address], * TEST URINE (12/01/2015 1:08 PM CDT) PREG TEST NEGATIVE 12/01/2015 1:27 PM CDT [facility] Comment: TESTING PERFORMED AT [facility] [address] [place] [phone] ELAN WADE M.D., SENIOR VALIDATION ENGINEER SPECIFIC GRAVITY (U) 1.030 >1.009 12/01/2015 1:27 PM CDT [facility] 12/01/2015 1:08 PM CDT 12/01/2015 1:19 PM CDT us Generic Conversion [facility] URINE ORDERABLES Final Result Performing Organization Address City/State/[facility] Co de Phone Number [facility] [address] [place] [address], documented in this encounter Visit Diagnoses Diagnosis Dysmenorrhea documented in this encounter Care Teams Retail Manager In Training Relationship Specialty Start Date End Date Kit Arriola MD [address] [address] PCP - General 12/01/15 07/13/20 documented as of this encounter
--- OUTSIDE RECORDS SUMMARY | 2024-02-17 13:39 | XMS_ITS | Encounter Summary ---
Author Organization [facility] Address [address] [place] [address] [place] [address] Care Team Providers Care Back Pad Inspector Name Role Phone Kit Arriola MD Primary Care Provider [phone] Kit Arriola MD Primary Care Provider [phone] Kit Arriola MD Primary Care Provider [phone] Encounter Details Date Type Department Care Team (Late st Contact Info) Description 04/05/[address] [facility] [facility] [address] [place], [place] [phone] Gurvinder Yee, MANUELA [address] [facility] [address] [place], [place] [id number] Social History Tobacco Use Types Packs/Day Years [...] Procedure Name Priority Date/Time Associated Diagnosis Comments TEST URINE STAT 04/05/2015 10:00 AM LIABILITY CLAIMS EXAMINER URINALYSIS AUTO DIP STAT 04/05/2015 1 0:00 AM LIABILITY CLAIMS EXAMINER documented in this encounter Results * TEST URINE (04/05/2015 10:00 AM LIABILITY CLAIMS EXAMINER) PREG TEST NEGATIVE 04/05/2015 10:57 AM [facility] Comment: TESTING PERFORMED AT [address] ??[phone] ELAN WADE M.D., BIOFUELS TECHNOLOGY MANAGER SPECIFIC GRAVITY (U) 1.020 >1.009 04/05/2015 10:57 AM [facility] 04/05/2015 10:0 0 AM LIABILITY CLAIMS EXAMINER 04/05/2015 10:54 AM [facility] us Generic Conversion Md [facility] URINE ORDERABLES Final Result Performing Organization Address City/State/[facility] Co de Phone Number [facility] [address] [place] [address], * URINALYSIS AUTO DIP (04/05/2015 10:00 AM LIABILITY CLAIMS EXAMINER) SOURCE (FLUID) URINE CLEAN CATCH 04/05/2015 10:00 AM [facility] COLOR (U) YELLOW 04/05/2015 10:43 AM [facility] Comment: TESTING PERFORMED AT [address] ??[phone] ELAN WADE M.D., BIOFUELS TECHNOLOGY MANAGER TRANSPARENCY CLOUDY 04/05/2015 10:43 AM [facility] SPECIFIC GRAVITY (U) 1.020 1.001 - 1.030 04/05/2015 10:43 AM [facility] U PH 6.0 5.0 - 9.0 04/05/2015 10:43 AM [facility] LEUKOCYTES (U) NEGATIVE NEGATIVE 04/05/2015 10:43 AM [facility] NITRITES NEGATIVE NEGATIVE 04/05/2015 10:43 AM [facility] PROTEIN (U) NEGATIVE <30 MG/DL 04/05/2015 10:43 AM [facility] URINE GLUCOSE NEGATIVE NEGATIVE MG/DL 04/05/2015 10:43 AM [facility] KETONES MG/DL (U) NEGATIVE NEGATIVE MG/DL 04/05/2015 10:43 AM [facility] UROBILINOGEN NEGATIVE NEGATIVE MG/DL 04/05/2015 10:43 AM [facility] BILIRUBIN (U) NEGATIVE NEGATIVE MG/DL 04/05/2015 10:43 AM [facility] BLOOD (U) NEGATIVE NEGATIVE 04/05/2015 10:43 AM [facility] CULTURE & SENSITIVITY INDICATED? CULTURE IS NOT INDICATED 04/05/2015 10:43 AM [facility] 04/05/2015 10:0 0 AM LIABILITY CLAIMS EXAMINER 04/05/2015 10:36 AM [facility] us Generic Conversion Md [facility] URINE ORDERABLES Final Result Performing Organization Address City/State/[facility] Co de Phone Number [facility] [address] [place] [phone], documented in this encounter Visit Diagnoses Diagnosis Abdominal pain Abdominal pain, unspecified site documented in this encounter Care Teams Back Pad Inspector Relationship Specialty Start Date End Date Kit Arriola MD [address] [address] PCP - General 04/05/15 05/02/15 Kit Arriola MD [address] [address] PCP - General 05/03/15 11/30/15 Kit Arriola MD [address] [address] PCP - General 12/01/15 07/13/20 documented as of this encounter
--- OUTSIDE RECORDS SUMMARY | 2024-02-17 13:39 | XMS_ITS | Encounter Summary ---
Author Organization [facility] Address [address] [place] [address] [place] [address] Care Team Providers Care Timber Skidder Name Role Phone Kit Arriola MD Primary Care Provider [phone] Reason for Referral * Imaging (Emergency) - Closed Specialty Diagnoses / Procedures Referred By Kimberley barrios Referred To Contact RADIOLOGY Procedures CT ABD+PEL WO CON Kimberlee De Leon FNP-BC Referral ID Status Reason Start Date Expiration Date Visits Re quested Visits Authorized [id number] Closed 01/13/2019 02/14/2020 1 1 PACKER Reason for Visit * Reason Comments Abdominal Pain Flank Pain Encounter Details Date Type Department Care Team (Late st Contact Info) Description 01/13/2019 5:19 PM MEAL PACKER - 01/13/2019 7:20 PM MEAL PACKER Emergency [facility] [place] [address] Kimberlee De Leon FNP-BC Abdominal Pain; Flank Pain Discharge Disposition: Home or Self Care [...] Sign Reading Time Taken Comments Blood Pressure 111/71 01/13/2019 7:00 PM MEAL PACKER Pulse 92 01/13/2019 7:00 PM MEAL PACKER Temperature 37.2 ??C (98.9 ??F) 01/13/2019 6:50 PM CS T Respiratory Rate 16 01/13/2019 7:00 PM MEAL PACKER Oxygen Saturation 99% 01/13/2019 7:00 PM MEAL PACKER Inhaled Oxygen Concentration - - Weight 68 kg (150 lb) 01/13/2019 5:06 PM MEAL PACKER Height 165.1 cm (5' 5 ) 01/13/2019 5:06 PM MEAL PACKER Body Mass Index 24.96 01/13/2019 5:06 PM MEAL PACKER documented in this encounter Discharge Instructions * Discharge Instructions* RAMIN Gilbert - 01/13/2019 6:53 PM MEAL PACKER Please be sure to take all of the medications as prescribed. Increase your water intake. Take Toradol as prescribed. Do NOT take with ibuprofen, motrin, advil or aleve. Be sure to take with food. Youmay use Zofran if needed for nausea/vomiting. Avoid caffeine and alcohol. Please wear cotton underwear only and loose clothing to allow breathing room. Do not use panty liners or pads. Do not douche or take a bubble bath. If you start running a fever, having worsening nausea or vomiting, or are generally not feeling well then please RETURN to the ER immediately. PACKER PACKER * Attachments The following attachments cannot be sent through Care Everywhere. * Urinary Tract Infection Discharge Instructions, Adult (Dutch) * High Blood Pressure Discharge Instructions (Dutch) documented in this encounter Medications at Time of Discharge ciprofloxacin (CIPRO) 500 MG tablet Take 1 tablet (500 mg total) by mouth 2 (two) times daily for 5 days. 10 tablet 9 01/19/20 19 ketorolac 10 MG tablet Take 1 tablet (10 mg total) by mouth 4 (four) times daily as needed. Take with food 20 tablet 9 01/19/20 19 letrozole 2.5 MG tablet Take 2.5 mg by mouth see administration instructions. Daily on days 3-8 0 9 10/05/19 21 ondansetron 4 MG disintegrating tablet Take 1 tablet (4 mg total) by mouth every 8 (eight) hours as needed. 20 tablet 9 10/05/19 21 documented as of this encounter ED Notes * Savannah Rutherford RN - 01/13/2019 6:22 PM CST Patient to CT scan per stretcher. PACKER * Savannah Rutherford RN - 01/13/2019 6:20 PM CST Patient c/o bilateral flank pain. Denies n/v/d PACKER * Kimberlee De Leon [employer] - 01/13/2019 5:12 PM CST History Chief Complaint Patient presents with ??? Abdominal Pain ??? Flank Pain Roxana Amos is a 28-year-old female who presented to the ED with c/o left lower back pain that wraps around to her abdomen which began 3 days ago. She states that sometimes the pain is so bad that it goes to my right side too . Pt reports she has had diminished appetite and difficulty sleeping due to pain. She reports pain with urination. Denies hematuria. She reports that she has takenno medications for her symptoms, but has tried a heating pad without improvement. She reports nausea and worsening pain when standing or moving. She does report a hx of kidney stones and states thatthis feels similar. She reports that she is currently not associated with a Urologist. She does report a history of PCOS and states that she is unsure of her status. She reports LMP was 2 months ago. Past Medical History: Diagnosis Date ??? Ectopic ??? Kidney stones ??? PCOS (polycystic ovarian syndrome) on Metformin Prior to Admission medications Medication Sig Start Date End Date Taking? Authorizing Provider ciprofloxacin (CIPRO) 500 MG tablet Take 1 tablet (500 mg total) by mouth 2 (two) times daily for 5days. 01/13/19 01/18/19 Yes Kimberlee Gorman Moises, [employer] ketorolac 10 MG tablet Take 1 tablet (10 mg total) by mouth 4 (four) times daily as needed. Take with food 01/13/19 01/18/19 Yes Kimberlee Gorman Moises, [employer] ondansetron 4 MG disintegrating tablet Take 1 tablet (4 mg total) by mouth every 8 (eight) hours asneeded. 01/13/19 Yes Kimberlee Gorman Moises, [employer] letrozole 2.5 MG tablet Take 2.5 mg by mouth see administration instructions. Daily on days 3-8 12/31/18 Doc Abstract Past Surgical History: Procedure Laterality Date ??? CHOLECYSTECTOMY ??? ECTOPIC Family History Problem Relation Name Age of Onset ??? Stroke Father ??? None Mother Social History Tobacco Use ??? Smoking status: Never Smoker ??? Smokeless tobacco: Never Used Substance Use Topics ??? Alcohol use: No Comment: rare use ??? Drug use: No No LMP recorded (lmp unknown). Patient is not currently having periods (Reason: Medical Condition). Review of Systems Constitutional: Negative for fever. Respiratory: Negative for cough, shortness of breath, wheezing and stridor. Cardiovascular: Negative for chest pain, palpitations and leg swelling. Gastrointestinal: Positive for abdominal pain and nausea. Negative for blood in stool, constipation, diarrhea and vomiting. Genitourinary: Positive for dysuria, flank pain and urgency. Negative for decreased urine volume, hematuria, vaginal bleeding, vaginal discharge and vaginal pain. Musculoskeletal: Positive for back pain. All other systems reviewed and are negative. Physical Exam Filed Vitals: 01/13/19 1706 01/13/19 1850 BP: (!) 175/105 111/71 Pulse: 111 83 Resp: 18 16 Temp: 98.3 ??F (36.8 ??C) 98.9 ??F (37.2 ??C) TempSrc: Oral SpO2: 95% 98% Weight: 68 kg (150 lb) Height: 5' 5 (1.651 m) Physical [...] normal. She exhibits no distension. There is tenderness (Left CVAtenderness which wraps around to the LLQ, mild guarding, no rebound.). There is guarding. There is no rebound. Musculoskeletal: Normal range of motion. Neurological: She is alert and oriented to person, place, and time. No cranial nerve deficit. She exhibits normal muscle tone. Coordination normal. Skin: Skin is warm and dry. No rash noted. No erythema. Psychiatric: She has a normal mood and affect. Her behavior is normal. Thought content normal. Vitals reviewed. Labs Reviewed CBC W/DIFF AUTOMATED - Abnormal; Notable for the following components: Result Value WBC 17.7 (*) ABS. NEUTROPHILS TOTAL 14.48 (*) ABS. EOSINOPHILS 0.01 (*) All other components within normal limits COMPREHENSIVE METABOLIC PANEL - Abnormal; Notable for the following components: CHLORIDE 109 (*) AST 12 (*) ANION GAP 4.5 (*) All other components within normal limits LIPASE - Abnormal; Notable for the following components: LIPASE 66 (*) All other components within normal limits URINALYSIS - Abnormal; Notable for the following components: LEUKOCYTE ESTERASE MODERATE (*) PROTEIN, URINE 100 (*) BLOOD LARGE (*) WBC/HPF >100 (*) RBC/HPF >100 (*) All other components within normal limits POCT URINE (BACK OFFICE) - Normal CULTURE URINE Risks vs benefits of CT scan discussed with patient and/or patient's family. They verbalized understanding at this time. They would like to proceed at this time. Orders placed accordingly. CT ABD+PEL WO CON Final Result by User, [id number] (01/14 1840) Examination: CT ABD+PEL WO CON Clinical history: Bilateral flank pain Comparison: 07/24/2017 DATE/TIME: 01/13/2019 6:07 PM Technique: Multiplanar images of the abdomen and pelvis were obtained. A dose lowering technique was used for this procedure, which may include, but is not limited to, dose reduction technique, automated exposure control, the use of iterative reconstruction, and ALARA (As Low As Reasonably Achievable) / Image Gently techniques. Findings: Liver is normal in size and contour. Spleen is normal size. Cholecystectomy. No bile duct dilatation. No evidence of pancreatitis. No adrenal mass. Kidneys are normal size. No nephrolithiasis, hydronephrosis or perinephric stranding. Question small subcentimeter low-density lesion in the lateral right kidney, measuring near water density and probably a cyst. Bladder poorly distended and not well evaluated. No pelvic mass. Trace amount free pelvic fluid, probably physiologic. No free intraperitoneal air. Abdominal aorta is normal caliber. No retroperitoneal lymphadenopathy. No bowel obstruction or bowel wall thickening. Normal appendix. No acute osseous abnormality or destructive bone lesion. IMPRESSION: 1. No renal stone disease, appendicitis or other acute abnormality identified. 2. Trace amount of free pelvic fluid. Interpreted By: Donald Loya MD, 01/13/2019 6:36 PM ED Course Procedures ED Course as of Jan 13 1855 Mon Jan 13, 2019 5673 1852--Pt resting comfortably. VSS with large improvement from previous readings. Pt agreeable to treat with Cipro, Toradol, and Zofran at home. She is agreeable to additional 15mg Toradol for pain prior to d/c home. [MP] ED Course User Index [MP] ANA Gilbert-BC Medications ketorolac (TORADOL) injection 15 mg (not administered) sodium chloride 0.9% bolus infusion SOLN 1,000 mL (1,000 mLs Intravenous New Bag 01/13/191816) ondansetron (ZOFRAN) injection 4 mg (4 mg Intravenous Given 01/13/191818) ketorolac (TORADOL) injection 15 mg (15 mg Intravenous Given 01/13/191818) Current Discharge Medication List START taking these medications Details ciprofloxacin (CIPRO) 500 MG tablet Take 1 tablet (500 mg total) by mouth 2 (two) times daily for 5days. Qty: 10 tablet, Refills: 0 Class: Eprescribe Pharmacy: [place] [id number] (Ph #: [phone]) ketorolac 10 MG tablet Take 1 tablet (10 mg total) by mouth 4 (four) times daily as needed. Take with food Qty: 20 tablet, Refills: 0 Class: Eprcrib Pharmacy: [place] [id number] (Ph #: [phone]) ondansetron 4 MG disintegrating tablet Take 1 tablet (4 mg total) by mouth every 8 (eight) hours asneeded. Qty: 20 tablet, Refills: 0 [facility] [address] [place] [address] (Ph #: [phone]) MDM Number of Diagnoses or Management Options Amount and/or Complexity of Data Reviewed Clinical lab tests: ordered and reviewed Tests in the radiology section of CPT??: ordered and reviewed Tests in the medicine section of CPT??: ordered and reviewed Independent visualization of images, tracings, or specimens: yes Patient Progress Patient progress: stable POC discussed with patient. Pt agreeable with plan of care. Red flags discussed for reasons to return to care. Pt verbalized understanding. SNOMED CT(R) 1. Urinary tract infection URINARY TRACT INFECTIOUS DISEASE 2. Elevated blood pressure reading ELEVATED BLOOD PRESSURE Disposition: Discharge Follow up instructions: Kit Arriola MD [address] [phone] Call in 2 days If symptoms worsen RAMIN GILBERT Please excuse any grammatical or spelling errors as this chart was documented using [employer], a dictation software. RAMIN Gilbert 01/13/19 0419 Cosigned by Lida Abdi MD at 01/16/2019 2:21 AM MEAL PACKER PACKER PACKER * Osmin Gao RN - 01/13/2019 5:08 PM CST Pt ambulatory to triage with complaint of bilateral flank and lower ABD pain that began 3 days ago.Notes nausea but denies vomiting, diarrhea, cough, fever, urinary symptoms. Hx of PCOS. PACKER documented in this encounter Plan of Treatment Not on file documented as of this encounter Procedures Procedure Name Priority Date/Time Associated Diagnosis Comments CT ABD+PEL WO CON STAT 01/13/2019 6:2 6 PM MEAL PACKER POCT URINE (BACK OFFICE) STAT 01/13/2019 5:58 PM MEAL PACKER URINALYSIS STAT 01/13/2019 5:53 PM MEAL PACKER URINE BACTERIA CULTURE Routine 9 5:53 PM MEAL PACKER COMPREHENSIVE METABOLIC PANEL STAT 01/13/2019 5:41 PM MEAL PACKER CBC W/DIFF AUTOMATED STAT 01/13/2019 5:41 PM MEAL PACKER LIPASE STAT 01/13/2019 5:41 PM MEAL PACKER documented in this encounter Results * CT ABD+PEL WO CON (01/13/2019 6:26 PM MEAL PACKER) Anatomical Region Laterality Modality Abdomen Computed Tomogra phy 01/13/2019 6:36 PM MEAL PACKER Impressions 01/13/2019 6:39 PM MEAL PACKER IMPRESSION: 1. ??No renal stone disease, appendicitis or other acute abnormality identified. 2. ??Trace amount of free pelvic fluid. Interpreted By: Donald Loya MD, 01/13/2019 6:36 PM Narrative 01/13/2019 6:39 PM MEAL PACKER Examination: CT ABD+PEL WO CON Clinical history: Bilateral flank pain Comparison: 07/24/2017 DATE/TIME: 01/13/2019 6:07 PM Technique: Multiplanar images of the abdomen and pelvis were obtained. A dose lowering technique was used for this procedure, which may include, but is not limited to, dose reduction technique, automated exposure control, the use of iterative reconstruction, and ALARA (As Low As Reasonably Achievable) / Image Gently techniques. Findings: Liver is normal in size and contour. ??Spleen is normal size. ??Cholecystectomy. ??No bile duct dilatation. ??No evidence of pancreatitis. ??No adrenal mass. ??Kidneys are normal size. ??No nephrolithiasis, hydronephrosis or perinephric stranding. ??Question small subcentimeter low-density lesion in the lateral right kidney, measuring near water density and probably a cyst. Bladder poorly distended and not well evaluated. ??No pelvic mass. ??Trace amount free pelvic fluid, probably physiologic. ??No free intraperitoneal air. ??Abdominal aorta is normal caliber. ??No retroperitoneal lymphadenopathy. ??No bowel obstruction or bowel wall thickening. ??Normal appendix. ??No acute osseous abnormality or destructive bone lesion. Procedure Note Donald Loya MD - 01/13/2019 Examination: CT ABD+PEL WO CON Clinical history: Bilateral flank pain Comparison: 07/24/2017 DATE/TIME: 01/13/2019 6:07 PM Technique: Multiplanar images of the abdomen and pelvis were obtained. Adose lowering technique was used for this procedure, which may include,but is not limited to, dose reduction technique, automated exposurecontrol, the use of iterative reconstruction, and ALARA (As Low AsReasonably Achievable) / Image Gently techniques. Findings: Liver is normal in size and contour. Spleen is normal size.Cholecystectomy. No bile duct dilatation. No evidence of pancreatitis.No adrenal mass. Kidneys are normal size. No nephrolithiasis,hydronephrosis or perinephric stranding. Question small subcentimeterlow-density lesion in the lateral right kidney, measuring near waterdensity and probably a cyst. Bladder poorly distended and not well evaluated. No pelvic mass. Traceamount free pelvic fluid, probably physiologic. No free intraperitonealair. Abdominal aorta is normal caliber. No retroperitoneallymphadenopathy. No bowel obstruction or bowel wall thickening. Normalappendix. No acute osseous abnormality or destructive bone lesion. IMPRESSION: 1. No renal stone disease, appendicitis or other acute abnormalityidentified. 2. Trace amount of free pelvic fluid. Interpreted By: Donald Loya MD, 01/13/2019 6:36 PM [facility]ises [facility]- CT Final Res ult * POCT urine (01/13/2019 5:58 PM MEAL PACKER) URINE HCG TEST negative NEGATIVE Internal Control performed as Expected? yes, [id number], exp 09/05/2019 [facility] Moises [facility]- POINT OF CARE TEST ORDERA BLES Final Result * CULTURE URINE (01/13/2019 5:53 PM MEAL PACKER) SPEC DESCRIPTION URINE CLEAN CATCH 01/13/2019 6:19 PM MEAL PACKER [facility] SPECIAL REQUESTS NO SPECIAL REQUEST 01/13/2019 6:19 PM MEAL PACKER [facility] CULTURE RESULT >100,000 COL/ML STAPHYLOCOCCUS SAPROPHYTICUS : STAPHYLOCOCCUS SAPROPHYTICUS URINE ISOLATES TYPICALLY RESPOND TO CONCENTRATIONS ACHIEVED IN URINE OF ANTIMICROBIAL AGENTS COMMONLY USED TO TREAT UNCOMPLICATED URINARY TRACT INFECTIONS SUCH NITROFURANTOIN, TRIMETH/SULFA, OR A FLUOROQUINOLONE. SUSCEPTIBILITIES ARE NOT ROUTINELY PERFORMED. 01/15/2019 8:48 AM MEAL PACKER [facility] URINE SPECIMEN OBTAINED BY CLEAN CATCH PROCEDURE / Unknown 01/13/2019 5:53 PM MEAL PACKER 01/13/2019 6:18 PM MEAL PACKER [facility] Moises [facility] MICROBIOLOGY - GENERAL OR DERABLES Final Result [facility] [address] [place] [address], [place] [phone] * (ABNORMAL) URINALYSIS (01/13/2019 5:53 PM MEAL PACKER) SPECIMEN TYPE URINE CLEAN CATCH 01/13/2019 5:53 PM [facility] COLOR (U) YELLOW 01/13/2019 6:16 PM [facility] TRANSPARENCY CLOUDY 01/13/2019 6:16 PM [facility] SPECIFIC GRAVITY (U) 1.020 1.001 - 1.030 01/13/2019 6:16 PM [facility] U PH 6.0 5.0 - 9.0 01/13/2019 6:16 PM [facility] LEUKOCYTES (U) MODERATE(A) NEGATIVE 9 6:16 PM [facility] NITRITES NEGATIVE NEGATIVE 01/13/2019 6:16 PM [facility] PROTEIN (U) 100(H) <30 MG/DL 01/13/2019 6:16 PM [facility] URINE GLUCOSE NEGATIVE NEGATIVE MG/DL 01/13/2019 6:16 PM [facility] KETONES MG/DL (U) NEGATIVE NEGATIVE MG/DL 01/13/2019 6:16 PM [facility] UROBILINOGEN NEGATIVE NEGATIVE MG/DL 01/13/2019 6:16 PM [facility] BILIRUBIN (U) NEGATIVE NEGATIVE MG/DL 01/13/2019 6:16 PM [facility] BLOOD (U) LARGE(A) NEGATIVE 01/13/2019 6:16 PM [facility] CULTURE & SENSITIVITY INDICATED? SPECIMEN SETUP FOR CULTURE 01/13/2019 6:16 PM [facility] SQUAMOUS EPITHELIALS MANY /LPF 01/13/2019 6:16 PM [facility] MUCUS MANY /LPF 01/13/2019 6:16 PM MEAL PACKER [facility] WBC/HPF >100(H) <6 /HPF 01/13/2019 6:16 PM MEAL PACKER [facility] WBC CLUMPS PRESENT 01/13/2019 6:16 PM MEAL PACKER [facility] RBC/HPF >100(H) <6 /HPF 01/13/2019 6:16 PM MEAL PACKER [facility] URINE SPECIMEN OBTAINED BY CLEAN CATCH PROCEDURE / Unknown 01/13/2019 5:53 PM MEAL PACKER Kimberlee F Moises [facility] URINE ORDERABLES Final Re sult Performing Organization Address City/[facility]/ZIP Co de Phone Number [facility] [address] [place] [address], [place] [phone] * (ABNORMAL) LIPASE (01/13/2019 5:41 PM MEAL PACKER) LIPASE 66(L) 73 - 393 UNITS/L 01/13/2019 6:26 PM MEAL PACKER [facility] 01/13/2019 5:41 PM MEAL PACKER Kimberlee F Moises [facility] Final Res ult Performing Organization Address City/[facility]/ZIP Co de Phone Number [facility] [address] [place] [address], [place] [phone] * (ABNORMAL) COMPREHENSIVE METABOLIC PANEL (01/13/2019 5:41 PM MEAL PACKER) GLUCOSE 97 70 - 99 MG/DL 01/13/2019 6:26 PM [facility] BUN 13 7 - 18 MG/DL 01/13/2019 6:26 PM [facility] CREATININE S/P/B 0.80 0.55 - 1.02 MG/DL 01/13/2019 6:26 PM [facility] SODIUM S/P/B 141 136 - 145 MMOL/L 01/13/2019 6:26 PM [facility] POTASSIUM S/P/B 3.8 3.5 - 5.1 MMOL/L 01/13/2019 6:26 PM [facility] CHLORIDE S/P/B 109(H) 100 - 108 MMOL/L 01/13/2019 6:26 PM [facility] CO2 27.5 21 - 32 MMOL/L 01/13/2019 6:26 PM [facility] CALCIUM S/P/B 8.7 8.5 - 10.1 MG/DL 01/13/2019 6:26 PM [facility] BILIRUBIN TOTAL S/P/B 0.7 0.2 - 1.2 MG/DL 01/13/2019 6:26 PM [facility] TOTAL PROTEIN S/P/B 6.8 6.4 - 8.2 G/DL 01/13/2019 6:26 PM [facility] ALBUMIN S/P/B 3.4 3.4 - 5.0 G/DL 01/13/2019 6:26 PM [facility] AST 12(L) 15 - 37 U/L 01/13/2019 6:26 PM [facility] ALT 22 14 - 55 U/L 01/13/2019 6:26 PM [facility] ALKALINE PHOSPHATASE S/P/B 72 50 - 136 U/L 01/13/2019 6:26 PM [facility] ANION GAP 4.5(L) 5 - 15 MMOL/L 01/13/2019 6:26 PM [facility] BUN CREATININE RATIO 16.2 6 - 26 01/13/2019 6:26 PM [facility] A/G RATIO 1.0 1.0 - 2.0 RATIO 01/13/2019 6:26 PM [facility] EGFR NON-AFR. AMER. >90 >90 ML/MIN/1.7 3 M2 01/13/2019 6:26 PM [facility] EGFR AFR. AMER. >90 >90 ML/MIN/1.7 3 M2 01/13/2019 6:26 PM [facility] Comment: NOTE: eGFR is not calculated for patients <18 years of age. This is an estimated GFR (CKD EPI) and should not be used for calculating drug doses. 01/13/2019 5:41 PM MEAL PACKER us Kimberlee Sherif De Leon [facility] Final Res ult [facility] [address] [place] [address], [place] [phone] * (ABNORMAL) CBC W/DIFF AUTOMATED (01/13/2019 5:41 PM MEAL PACKER) WBC 17.7(H) 4.5 - 11.0 x10'3/uL 01/13/2019 6:05 PM [facility] RBC 5.04 4.20 - 5.40 x10'6/uL 01/13/2019 6:05 PM [facility] HGB 14.6 12.0 - 16.0 G/DL 01/13/2019 6:05 PM [facility] HCT 44.2 38.0 - 48.0 % 01/13/2019 6:05 PM [facility] MCV 87.7 81.0 - 99.0 FL 01/13/2019 6:05 PM [facility] MCH 29.0 27.0 - 31.0 PG 01/13/2019 6:05 PM [facility] MCHC 33.0 32.0 - 36.0 G/DL 01/13/2019 6:05 PM [facility] RDW 13.1 11.5 - 14.5 % 01/13/2019 6:05 PM [facility] PLT 334 130 - 400 x10'3/uL 01/13/2019 6:05 PM [facility] MPV 9.6 9.3 - 12.2 FL 01/13/2019 6:05 PM [facility] DIFFERENTIAL TYPE AUTOMATED DIFFERENTIAL 01/13/2019 6:05 PM [facility] NEUTROPHILS % 81.5 % 01/13/2019 6:05 PM [facility] LYMPHOCYTES % 13.1 % 01/13/2019 6:05 PM [facility] MONOCYTES % 4.5 % 01/13/2019 6:05 PM [facility] EOSINOPHILS 0.1 % 01/13/2019 6:05 PM [facility] BASOPHILS 0.2 % 01/13/2019 6:05 PM [facility] IMMATURE GRANS % 0.6 % 01/14/20 19 6:05 PM [facility] ABS. NEUTROPHILS TOTAL 14.48(H) 1.80 - 7.70 x10'3/uL 01/13/2019 6:05 PM [facility] ABS. LYMPHOCYTES 2.32 1.00 - 4.80 x10'3/uL 01/13/2019 6:05 PM [facility] ABS. MONOCYTES 0.79 0.24 - 0.86 x10'3/uL 01/13/2019 6:05 PM [facility] ABS. EOSINOPHILS 0.01(L) 0.04 - 0.36 x10'3/uL 01/13/2019 6:05 PM MEAL PACKER [facility] ABS. BASOPHILS 0.04 0.01 - 0.08 x10'3/uL 01/13/2019 6:05 PM MEAL PACKER [facility] ABS. IMMATURE GRANULOCYTES 0.10 0.00 - 0.49 x10'3/uL 01/13/2019 6:05 PM MEAL PACKER [facility] 01/13/2019 5:41 PM MEAL PACKER us Kimberlee F Moises [employer] Final Res ult [facility] [address] [place] [address], [place] [phone] documented in this encounter Visit Diagnoses Diagnosis Urinary tract infection- Primary Urinary tract infection, site not specified Elevated blood pressure reading Elevated blood pressure reading without diagnosis of hypertension documented in this encounter Administered Medications Inactive Administered Medications - up to 3 most recent administrations Medication Order MAR Action Action Date Dose Rate Site ketorolac (TORADOL) injection 15 mg 15 mg, Intravenous, Once, 1 dose, On Sun01/13/19 at 1745, For IV administration, give over 15 seconds. Given 01/13/2019 6:19 PM MEAL PACKER 15 mg ketorolac (TORADOL) injection 15 mg 15 mg, Intravenous, Once, 1 dose, On Sun01/13/19 at 1900, For IV administration, give over 15 seconds. Given 01/13/2019 7:12 PM MEAL PACKER 15 mg ondansetron (ZOFRAN) injection 4 mg 4 mg, Intravenous, Once, 1 dose, On Sun01/13/19 at 1745, IV push over 2-5 minutes. Given 01/13/2019 6:19 PM MEAL PACKER 4 mg sodium chloride 0.9% bolus infusion SOLN 1,000 mL 1,000 mL, Intravenous, Administer over 15 Minutes, Once, 1 dose, On Sun01/13/19 at 1745 New Bag 01/13/2019 6:17 PM MEAL PACKER 1,000 mLs 999 mL/hr documented in this encounter Active and Recently Administered Medications Times are shown in MEAL PACKER. Scheduled Medication Order 01/11/2019 01/12/2019 01/13/2019 ketorolac (TORADOL) injection 15 mg (COMPLETED) 15 mg, Intravenous, Once, 1 dose, On Sun01/13/19 at 1745, For IV administration, give over 15 seconds. 181 (Given - Provid er: Savannah Rutherford RN) ketorolac (TORADOL) injection 15 mg (COMPLETED) 15 mg, Intravenous, Once, 1 dose, On Sun01/13/19 at 1900, For IV administration, give over 15 seconds. 1911 (Given - Provid er: Geovanna Narvaez, COCO) ondansetron (ZOFRAN) injection 4 mg (COMPLETED) 4 mg, Intravenous, Once, 1 dose, On Sun01/13/19 at 1745, IV push over 2-5 minutes. 1818 (Given - Provid er: Savannah Rutherford RN) sodium chloride 0.9% bolus infusion SOLN 1,000 mL (COMPLETED) 1,000 mL, Intravenous, Administer over 15 Minutes, Once, 1 dose, On Sun01/13/19 at 1745 181 (New Bag - Prov ider: Savannah Rutherford RN)1909 (Infusion Stop Time - Provider: Geovanna Narvaez RN) documented in this encounter Care Teams Timber Skidder Relationship Specialty Start Date End Date Kit Arriola MD [address] [address] PCP - General 12/01/15 07/13/20 documented as of this encounter
--- OUTSIDE RECORDS SUMMARY | 2024-02-17 13:39 | XMS_ITS | Encounter Summary ---
Author Organization [facility] Address [address] [place] [address] [place] [address] Care Team Providers Care Assembler Arranger Name Role Phone Kit Arriola MD Primary Care Provider Encounter Details Date Type Department Care Team (Late st Contact Info) Description 12/09/2016 [place] [address] , Generic ConversionMD Social History Tobacco Use Types Packs/Day Years [...] on filedocumented in this encounter Care Teams Assembler Arranger Relationship Specialty Start Date End Date Kit Arriola MD [address] [address] PCP - General 12/01/15 07/13/20 documented as of this encounter
--- OUTSIDE RECORDS SUMMARY | 2024-02-17 13:39 | XMS_ITS | Encounter Summary ---
Author Organization [facility] Address [address] [place] [address] Care Team Providers Care Campaign Marketing Specialist Name Role Phone Kit Arriola MD Primary Care Provider [phone] Reason for Visit * Reason Comments GENERALIZED BODY ACHES Encounter Details Date Type Department Care Team (Late st Contact Info) Description 10/12/2021 3:15 PM CDT Video Visit [facility] [employer] [facility] [address] [place] [phone] Gabby Whitten APRN-CNP [address] [place] [address] COVID-19 ; Acute pharyngitis, unspecified etiology Social History Tobacco Use Types Packs/Day Years Used Date Smoking Tobacco: Never Assessed PHQ-2 Answer Date Recorded PHQ2 TOTAL SCORE 0 08/14/2021 Comments Yes Sex and Gender Information Value Date Recorded [...] - - Body Mass Index - - documented in this encounter Patient Instructions * Patient Instructions* Gabby Whitten APRN-CNP - 10/12/2021 3:39 PM CDT IF your RAPID COVID-19 test is positive: ISOLATE: Stay home except to get medical care! Separate yourself from other people and pets in [facility]: Do not go to work, school, or public areas, such as stores or social gatherings. Do not use public transportation. If available, stay in a separate bedroom and use a separate bathroom. Ask others to care for your pets. (If possible) Wear a facemask when around other people or pets. Cover your mouth and nose with a tissue when you cough or sneeze. If a tissue is not available, cough or sneeze into your upper sleeve (not your hands). Throw tissues away in trash-can that has a bag in it. Empty your trash daily. Always wash your hands after you throw away the tissue or garbage. QUARANTINE CAN BE COMPLETE ONCE THERE HAS BEEN 7 DAYS SINCE SYMPTOM ONSET, FEVER FREE X 24 HOURS AND HAVING SYMPTOM IMPROVEMENT. WEAR A MASK FOR ADDITIONAL three DAYS AFTER. Self-care: Rest as much as possible. Slowly start to do more each day. Take the medicines recommended by your doctor for fever, body aches, cough, or headaches. (Tylenol or Ibuprofen for aches/pains/fever as needed) (Antihistamines like Claritin or Benadryl as needed for drainage) (Delsym, cough drops/throat lozenges, or honey as needed for cough) Drink more liquids as directed to help thin and loosen mucus so it is easier to cough up. Liquids such as water, fruit juice, sports/electrolyte drinks, and broth also help keep you hydrated. Soothe a sore throat by gargling with warm salt water. Make salt water by dissolving ?? teaspoon salt in 1 cup warm water (8 ounces). Older children and adults can also use throat lozenges, ice chips, or sore throat spray. Use a humidifier or vaporizer to increase air moisture in your home. This may make it easier to breathe and help decrease coughing. Use saline nasal drops as directed to relieve congestion. Apply petroleum-based jelly around the outside of nostrils to decrease irritation from blowing yournose. DO NOT smoke or vape. Nicotine and other chemicals in cigarettes and cigars can make your symptoms worse. Monitor your symptoms: Seek medical attention right away if your symptoms get worse, such as if you are having difficulty breathing, shortness of breath, new confusion or inability to arouse, or bluish lips or face. If indicated a pulse ox will be soon delivered to your home - monitor your oxygen saturations with this device. If you find your Oxygen Saturation is falling 92% or below please notify your PCP rightaway or seek medical attention. If you have a medical emergency, call 911 and notify the EMS personnel that you have or are being evaluated for COVID-19. Put on a facemask before emergency medical services arrive documented in this encounter Progress Notes * Gabby Whitten APRN-CNP - 10/12/2021 3:25 PM CDT [facility] Roxana Briseno is a 31 year old female who presents for evaluation: Chief Complaint Patient presents with ??? GENERALIZED BODY ACHES Primary Care Physician is Kit Arriola MD. SUBJECTIVE: Presents to [facility] video visit with cough, upper rib cage pain from cough, sore throat, and body aches. Symptoms started this morning. Denies SOB, chest pain, fever, and wheezing. POSITIVE rapid home Covid19 test today Treatments tried: none thus far. Currently 8 weeks Symptoms are reported as mild. Drinking fluids. Vaccinated x2 doses. Requiring work excuse. No past medical history on file. There is no problem list on file for this patient. No current outpatient medications on file prior to visit. No current facility-administered medications on file prior to visit. Past Surgical History: Procedure Laterality Date ??? MRI BREAST LEFT BIOPSY Left 02/11/2021 MRI BREAST LEFT BIOPSY 02/11/2021 [facility] MRI Social History Socioeconomic History ??? [...] Sig Dispense Refill ??? diphenhydramine/maalox/lidocaine visc 1:1:1 (Magic Mouthwash) suspension Swish and swallow 10 mL every 6 hours as needed 240 mL 0 No current facility-administered medications for this visit. Allergies Allergen Reactions ??? Latex Urticaria and Itching Hives Hives Hives ??? Morphine Urticaria and Itching Itching Itching Itching ??? Tramadol Itching ??? Vancomycin Urticaria Itching Itching Itching REVIEW OF SYSTEMS: Review of Systems Constitutional: Negative. Negative for chills and fever. HENT: Positive for sore throat. Eyes: Negative. Respiratory: Positive for cough. Negative for sputum production, shortness of breath and wheezing. Cardiovascular: Negative. Negative for chest pain and palpitations. Gastrointestinal: Negative for abdominal pain, diarrhea, nausea and vomiting. Musculoskeletal: Positive for myalgias. Skin: Negative. OBJECTIVE: General appearance: alert, pleasant and in no distress. Wt 83.9 kg (185 lb) Physical Exam Constitutional: General: She is not in acute distress. Appearance: Normal appearance. She is well-developed. She is not ill-appearing. HENT: Head: Normocephalic and atraumatic. Nose: Nose normal. Mouth/Throat: Lips: [place]. Pharynx: Oropharynx is clear. Uvula midline. Posterior oropharyngeal erythema present. Pulmonary: Effort: Pulmonary effort is normal. No respiratory distress. Comments: Breathing unlabored. No cough noted on video. Neurological: Mental Status: She is alert and oriented to person, place, and time. Psychiatric: Behavior: Behavior is cooperative. Thought Content: Thought content normal. No results found for this or any previous visit (from the past 24 hour(s)). ASSESSMENT: Encounter Diagnoses Name Primary? COVID-19 Yes ??? Acute pharyngitis, unspecified etiology PLAN: Reviewed symptomatic treatment plan. Risk score 6 If symptoms worsen, follow up with PCP or OBGYN. IF your RAPID COVID-19 test is positive: ISOLATE: Stay home except to get medical care! Separate yourself from other people and pets in yourhome: ??? Do not go to work, school, or public areas, such as stores or social gatherings. ??? Do not use public transportation. ??? If available, stay in a separate bedroom and use a separate bathroom. ??? Ask others to care for your pets. (If possible) ??? Wear a facemask when around other people or pets. ??? Cover your mouth and nose with a tissue when you cough or sneeze. If a tissue is not available,cough or sneeze into your upper sleeve (not your hands). ??? Throw tissues away in trash-can that has a bag in it. Empty your trash daily. ??? Always wash your hands after you throw away the tissue or garbage. QUARANTINE CAN BE COMPLETE ONCE THERE HAS BEEN 7 DAYS SINCE SYMPTOM ONSET, FEVER FREE X 24 HOURS AND HAVING SYMPTOM IMPROVEMENT. WEAR A MASK FOR ADDITIONAL three DAYS AFTER. Self-care: ??? Rest as much as possible. Slowly start to do more each day. ??? Take the medicines recommended by your doctor for fever, body aches, cough, or headaches. (Tylenol or Ibuprofen for aches/pains/fever as needed) (Antihistamines like Claritin or Benadryl as needed for drainage) (Delsym, cough drops/throat lozenges, or honey as needed for cough) ??? Drink more liquids as directed to help thin and loosen mucus so it is easier to cough up. Liquids such as water, fruit juice, sports/electrolyte drinks, and broth also help keep you hydrated. ??? Soothe a sore throat by gargling with warm salt water. Make salt water by dissolving ?? teaspoon salt in 1 cup warm water (8 ounces). Older children and adults can also use throat lozenges, ice chips, or sore throat spray. ??? Use a humidifier or vaporizer to increase air moisture in your home. This may make it easier tobreathe and help decrease coughing. ??? Use saline nasal drops as directed to relieve congestion. ??? Apply petroleum-based jelly around the outside of nostrils to decrease irritation from blowing your nose. ??? DO NOT smoke or vape. Nicotine and other chemicals in cigarettes and cigars can make your symptoms worse. Monitor your symptoms: ??? Seek medical attention right away if your symptoms get worse, such as if you are having difficulty breathing, shortness of breath, new confusion or inability to arouse, or bluish lips or face. ??? If indicated a pulse ox will be soon delivered to your home - monitor your oxygen saturations with this device. If you find your Oxygen Saturation is falling 92% or below please notify your PCP right away or seek medical attention. ??? If you have a medical emergency, call 911 and notify the EMS personnel that you have or are being evaluated for COVID-19. Put on a facemask before emergency medical services arrive Possible medication side effects discussed with patient/guardian Reviewed education materials and instructions with patient and answered all questions. Roxana Briseno verbalized understanding and agrees with plan. Follow up withMD Jolie if symptoms worsen or do not completely resolve. Orders Placed This Encounter ??? diphenhydramine/maalox/lidocaine visc 1:1:1 (Magic Mouthwash) suspension Sig: Swish and swallow 10 mL every 6 hours as needed Dispense: 240 mL Refill: 0 I have spent a total of 15 minutes. Time was spent reviewing medical history, performing physical exam, documenting, counseling/educating, reviewing plan of care documented in this encounter Miscellaneous Notes * Addendum Note - Saroj Cantu CPC - 10/17/2021 8:47 AM CDTAddended by: SAROJ CANTU on: 10/17/2021 08:47 AM Modules accepted: Level of Service documented in this encounter Plan of Treatment Not on file documented as of this encounter Visit Diagnoses Diagnosis COVID-19- Primary Acute pharyngitis, unspecified etiology documented in this encounter Care Teams Campaign Marketing Specialist Relationship Specialty Start Date End Date Kit Arriola MD [address] [phone] PCP - General Emergency Medicine 10/12/21 documented as of this encounter
--- OUTSIDE RECORDS SUMMARY | 2024-02-17 13:39 | XMS_ITS | Encounter Summary ---
Author Organization [facility] Address [address] [place] [address] [place] [address] Care Team Providers Care Binding Folder Machine Name Role Phone Kit Arriola MD Primary Care Provider [phone] Kit Arriola MD Primary Care Provider [phone] Encounter Details Date Type Department Care Team (Late st Contact Info) Description 05/03/2015 Abstract [facility] [place], [place] [id number] Alex Portillo MD [address] [place] [id number] Social History Tobacco Use Types Packs/Day Years Used Date Smoking Tobacco: Never Assessed Comments Unknown Sex and Gender Information Value Date Recorded Sex Assigned at Not on file Legal Sex Female 8:13 PM CDT Gender Identity Not on file Sexual Orientation Not on file documented as of this encounter Plan of Treatment Not on file documented as of this encounter Visit Diagnoses Diagnosis Calculus of 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
--- OUTSIDE RECORDS SUMMARY | 2024-02-17 13:39 | XMS_ITS | Encounter Summary ---
Author Organization [facility] Address [address] [facility] [place] [address] Care Team Providers Care Farm Contractor Name Role Phone Unavailable Primary Care Provider Unavailabl e Reason for Referral * Radiology Services (Routine) - Closed Specialty Diagnoses / Procedures Referred By Cesarac sophie Referred To Contact MRI Diagnoses Abnormal finding on breast imaging Procedures MRI BREAST LEFT BIOPSY Wilner Gutierrez DO [address] [address] [facility] [address] [place] [address] Referral ID Status Reason Start Date Expiration Date Visits Re quested Visits Authorized [id number] Closed 01/26/2021 01/26/2022 1 1 Y WEIGHER Reason for Visit * Radiology Services (Routine) - Closed Specialty Diagnoses / Procedures Referred By Kimberley barrios Referred To Contact MRI Diagnoses Abnormal finding on breast imaging Procedures MRI BREAST LEFT BIOPSY Wilner Gutierrez DO [address] [address] [facility] [address] [place] [address] Referral ID Status Reason Start Date Expiration Date Visits Re quested Visits Authorized [id number] Closed 01/26/2021 01/26/2022 1 1 Encounter Details Date Type Department Care Team (Latest Contact Info) Description 02/11/2021 1:05 PM LORRY WEIGHER - 02/11/2021 11:59 PM LORRY WEIGHER Hospital Encounter [facility] MRI [address] [place] [address] Wilner Gutierrez DO [address] [facility] [[email or web address] [address] [place] [address] Discharge Disposition: Home or Self Care [...] COVID-19? No / Unsure 02/11/2021 12:21 PM LORRY WEIGHER documented as of this encounter Plan of Treatment Not on file documented as of this encounter Procedures Procedure Name Priority Date/Time Associated Diagnosis Comments MRI BREAST LEFT BIOPSY Routine 02/11/2021 2:51 PM LORRY WEIGHER Abnormal finding on breast imaging documented in this encounter Results * MRI BREAST LEFT BIOPSY (02/11/2021 2:51 PM LORRY WEIGHER) Anatomical Region Laterality Modality Breast Left Magnetic Resonan ce 02/11/2021 3:01 PM LORRY WEIGHER Addenda Addendum by Heron Ely MD on 02/15/2021 3:50 PM LORRY WEIGHER ORIGINAL REPORT EXAM: MRI GUIDED VACUUM-ASSISTED CORE NEEDLE BIOPSY AND POST BIOPSY DIGITAL MAMMOGRAM ??LEFT BREAST (COMBINED REPORT) HISTORY: This is a 30-year-old female with history of bloody nipple discharge. Outside MRI scan of the breast dated 12/08/2020 from [facility] demonstrated a 0.8 cm enhancing mass in the central left breast. There was no ultrasound correlate and mammogram was unremarkable. Breast MRI biopsy requested for further evaluation. COMPARISON: Prior breast MRI scan from [facility] 12/25/2020. CONTRAST: 6 cc of Gadovist. TECHNIQUE [...] also provided to the referring physician via [employer]. This report was electronically signed by HERON ELY M.D. ??on 02/15/2021 3:47 PM . Impressions 02/11/2021 4:04 PM LORRY WEIGHER IMPRESSION: 1. ??Technically successful, uncomplicated MRI guided [...] 4:04 PM . Narrative 02/11/2021 4:04 PM LORRY WEIGHER EXAM: MRI GUIDED VACUUM-ASSISTED CORE NEEDLE BIOPSY AND POST BIOPSY DIGITAL MAMMOGRAM ??LEFT BREAST (COMBINED REPORT) HISTORY: This is a 30-year-old female with history of bloody nipple discharge. Outside MRI scan of the breast dated 12/08/2020 from [facility] demonstrated a 0.8 cm enhancing mass in the central left breast. There was no ultrasound correlate and mammogram was unremarkable. Breast MRI biopsy requested for further evaluation. COMPARISON: Prior breast MRI scan from [facility] 12/25/2020. CONTRAST: 6 cc of Gadovist. TECHNIQUE [...] was processed and interpreted on the MRI [employer] workstation for biopsy purposes. MRI FINDINGS: Contrasted [...] entire procedure. Wilner Gutierrez DO MR ORDERABLES documented in this encounter Visit Diagnoses Diagnosis Abnormal finding on breast imaging Other (abnormal) findings on radiological examination of breast documented in this encounter
--- OUTSIDE RECORDS SUMMARY | 2024-02-17 13:39 | XMS_ITS | Encounter Summary ---
Author Organization [facility] Address [address] [place] [address] Care Team Providers Care Senior Sharepoint Architect Name Role Phone Kit Arriola MD Primary Care Provider [phone] Reason for Visit * Reason Comments Pain Dental Encounter Details Date Type Department Care Team (Late st Contact Info) Description 07/03/2022 8:30 PM CDT Video Visit [facility] [address] [place] [phone] Darcie Colón, RUTH [address] [place] [address] Dental infection Social History Tobacco Use Types Packs/Day Years Used Date Smoking Tobacco: Never Assessed PHQ-2 Answer Date Recorded PHQ2 TOTAL SCORE 0 08/14/2021 Sex and Gender Information Value Date Recorded Sex Assigned at Female 08/14/2021 4:02 PM CDT Gender Identity Female 08/14/2021 4:02 PM CDT Sexual Orientation Not on file documented as of this encounter Patient Instructions * Patient Instructions* Darcie Colón APRN-CNP - 07/03/2022 8:36 PM CDT Ibuprofen 800 mg every 6 hours as needed for pain and swelling- Take around the clock for the next 24-48 hours to help with swelling Can apply ice and heat to the area to help with swelling and pain Do not use a needle to try and drain the abscess, can push bacteria further into skin Keep area clean, Rinse your mouth every 2 hours with salt water Gently brush your teeth twice a day with a soft tooth brush. This will help keep the area clean. Eat soft foods as directed. Soft foods may cause less pain. Examples include applesauce, yogurt, and cooked pasta. Ask your healthcare provider how long to follow this instruction Follow-up with dentist BALDEV Go to the ER if she starts to get worse, trouble swallowing, difficulty breathing, fever, vomiting,diarrhea, or severe pain. documented in this encounter Progress Notes * Darcie Colón APRN-CNP - 07/03/2022 8:26 PM CDT Images from the original note were not included. [facility] Chief Complaint Patient presents with ??? Pain Dental SUBJECTIVE: 32 yr old female presents to the [facility] with complaints today of dental pain to left lower tooth that is radiating pain to ear and triggering a headache. Has had issues with this tooth in the past and has a dental appointment next week to have it pulled. Is concerned about infection today. Has taken Amoxicillin for it recently which did help but worsening again. Otherwise feels well. No fever. Is eating and drinking normally. OTC treatments tried: tylenol No past medical history on file. Current Outpatient Medications on File Prior to Visit Medication Sig Dispense Refill ??? diphenhydramine/maalox/lidocaine visc 1:1:1 (Magic Mouthwash) suspension Swish and swallow 10 mL every 6 hours as needed 240 mL 0 No current facility-administered medications on file prior to visit. Past Surgical History: Procedure Laterality Date ??? MRI BREAST LEFT BIOPSY Left 02/11/2021 MRI BREAST LEFT BIOPSY 02/11/2021 [facility] MRI Social History Socioeconomic History ??? Marital status: Spouse name: Not on file ??? Number of children: Not on file ??? Years of education: Not on file ??? Highest education level: Not on file Occupational History ??? Not on file Tobacco Use ??? Smoking status: Not on file ??? Smokeless tobacco: Not on file Vaping Use ??? Vaping status: Not on file Substance and Sexual Activity [...] Outpatient Medications Medication Sig Dispense Refill ??? clindamycin (Cleocin) 300 MG capsule Take 1 (one) capsule by mouth 3 times daily for 7 days 21 capsule 0 ??? diphenhydramine/maalox/lidocaine visc 1:1:1 (Magic Mouthwash) suspension Swish and swallow 10 mL every 6 hours as needed 240 mL 0 ??? ibuprofen (Motrin) 800 MG tablet Take 1 (one) tablet by mouth 3 times daily as needed for Pain 30 tablet 0 No current facility-administered medications for this visit. Allergies Allergen Reactions ??? Latex Urticaria and Itching Hives Hives Hives ??? Morphine Urticaria and Itching Itching Itching Itching ??? Tramadol Itching ??? Vancomycin Urticaria Itching Itching Itching REVIEW OF SYSTEMS: Review of Systems Constitutional: Negative. HENT: Positive for ear pain. Dental pain, swelling and tenderness to gums Respiratory: Negative. Cardiovascular: Negative. Neurological: Positive for headaches. OBJECTIVE: General appearance: alert, well appearing, and in no distress. Unable to obtain VS due to video visit Physical Exam Constitutional: General: She is not in acute distress. Appearance: She is not ill-appearing. HENT: Mouth/Throat: Lips: [place]. Mouth: Mucous membranes are moist. Dentition: Dental tenderness, gingival swelling and dental abscesses present. Comments: Per pt Pulmonary: Effort: Pulmonary effort is normal. Neurological: Mental Status: She is alert. Psychiatric: Behavior: Behavior is cooperative. ASSESSMENT: No results found for this visit on 07/03/22. Encounter Diagnosis Name Primary? Dental infection Yes PLAN: Orders Placed This Encounter ??? clindamycin (Cleocin) 300 MG capsule Sig: Take 1 (one) capsule by mouth 3 times daily for 7 days Dispense: 21 capsule Refill: 0 ??? ibuprofen (Motrin) 800 MG tablet Sig: Take 1 (one) tablet by mouth 3 times daily as needed for Pain Dispense: 30 tablet Refill: 0 Ibuprofen 800 mg every 6 hours as needed for pain and swelling- Take around the clock for the next 24-48 hours to help with swelling Can apply ice and heat to the area to help with swelling and pain Do not use a needle to try and drain the abscess, can push bacteria further into skin Keep area clean, Rinse your mouth every 2 hours with salt water Gently brush your teeth twice a day with a soft tooth brush. This will help keep the area clean. Eat soft foods as directed. Soft foods may cause less pain. Examples include applesauce, yogurt, and cooked pasta. Ask your healthcare provider how long to follow this instruction Follow-up with dentist BALDEV Go to the ER if she starts to get worse, trouble swallowing, difficulty breathing, fever, vomiting,diarrhea, or severe pain. Possible medication side effects discussed with patient/guardian I have spent a total of 12 minutes. Time was spent reviewing medical history, performing physical exam, documenting, counseling/educating, reviewing plan of care, and medications documented in this encounter Miscellaneous Notes * Clinical References AVS - Darcie Colón APRN-CNP - 07/03/2022 8:36 PM CDT Images from the original note were not included. [id number] Dental Abscess An abscess is a sac of fluid (pus). A dental abscess forms when a tooth or the tissue around it becomes infected with bacteria. The bacteria can enter through a cavity or a crack in a tooth. It can also infect the gum tissue or bone around a tooth. An untreated abscess can cause the loss of the tooth. It can even spread to other parts of the body and become life-threatening. Symptoms of a dental abscess Symptoms include: ?? Toothache, often severe ?? Tooth pain with hot, cold, or pressure ?? Red gums ?? Pain in the gums, cheek, or jaw ?? Bad breath or bitter taste in the mouth ?? Trouble swallowing or opening the mouth ?? Fever ?? Swollen or enlarged neck glands Diagnosing a dental abscess The dentist will ask about your symptoms and check your teeth and gums. You will be told if you need any tests, such as dental X-rays. Treating a dental abscess Treatments for a dental abscess may include: ?? Antibiotic medicines. These treat the underlying infection. ?? Pain relievers. These help you feel more comfortable. Your healthcare provider may prescribe a medicine for you. Or you may use [id number] pain relievers, such as acetaminophen or ibuprofen,unless another pain medicine was prescribed. Talk with your healthcare provider before using these medicines if you have chronic liver or kidney disease. Also talk with your provider if you?ve had a stomach ulcer or gastrointestinal (GI) bleeding. ?? Warm saltwater rinses. These can soothe mild pain and help clear away pus. ?? Root canal surgery. This may be done if needed to save the tooth. With a root canal, the infected part of the tooth is removed. A special substance is then used to fill the empty space in the tooth. ?? Draining the abscess. This may be done if needed. Cuts (incisions) are made to let the infected material drain from the tooth. ?? Removing the tooth. This is done in cases of severe infection that can?t be treated another way. You may need to be admitted to a hospital if the infection is severe, has spread, or doesn?t respond to treatment. When to get medical advice Call your dentist or healthcare provider right away if you have any of the following: ?? Fever of 100.4??F ( 38??C) or higher, or as directed by your healthcare provider ?? More pain, redness, drainage, or swelling in the treated area ?? Face or jawbone swelling ?? Pain that can't be controlled with medicines ?? Pus drains from the tooth Call 911 Call 911 if any of these occur: ?? Unusual drowsiness or confusion ?? Weakness or fainting ?? Headache or stiff neck ?? Trouble swallowing, breathing, or opening your mouth ?? Swollen eyelids or vision problems Preventing dental abscess To prevent another abscess in the future, keep your teeth clean and healthy. [place] twice a day and floss at least once daily. See your dentist for regular exams and tooth cleanings. Avoid excessive sugary foods and drinks that can lead to tooth decay. If your teeth experience any trauma, see your dentist as soon as possible. Last Reviewed Date: 2021 ?? [id number] [employer]. All rights reserved. This information is not intended as a substitute for professional medical care. Always follow your healthcare professional's instructions. documented in this encounter Plan of Treatment Not on file documented as of this encounter Visit Diagnoses Diagnosis Dental infection- Primary Acute apical periodontitis of pulpal origin documented in this encounter Care Teams Senior Sharepoint Architect Relationship Specialty Start Date End Date Kit Arriola MD [address] [address] PCP - General Emergency Medicine 10/12/21 documented as of this encounter
--- OUTSIDE RECORDS SUMMARY | 2024-02-17 13:39 | XMS_ITS | Encounter Summary ---
Author Organization [facility] Address [address] [place] [address] [place] [address] Care Team Providers Care Commutator Inspector Name Role Phone Kit Arriola MD Primary Care Provider [phone] Reason for Visit * Auth/Cert Specialty Diagnoses / Procedures Referred By Kimberley barrios Referred To Contact Diagnoses ECTOPIC Procedures LAPAROSCOPIC RIGHT SALPINGOSTOMY, POSSIBLE RIGHT SALPINGECTOMY Referral ID Status Reason Start Date Expiration Date Visits Re quested Visits Authorized [id number] 1 1 Encounter Details Date Type Department Care Team (Late st Contact Info) Description 11/29/2017 12:40 PM CDT Anesthesia Event [facility] [place], [place] [address] Benjamin Yanes MD [address] [id number] Peg Mcdaniels NP Anesthesia Record Procedure Summary Procedure Name Responsible Anesthesiologist Anesthesia Start Time Anesthesia Stop Time LAPAROSCOPIC RIGHT SALPINGOSTOMY (Right: Abdomen) Benjamin Yanes MD 11/29/17 1240 11/29/17 1359 Events Date Time Event Comment 11/29/2017 1211 AN UNIVERSITY CONTROLLER Prepped 1213 1213 AN Anesthesia Prepped 1240 An Start Patient ID and consent checked and patient reassessed. 1240 An Start Data 1240 Quick Note No antibiotic o rdered per surgeon 1246 Preoxygenation 1247 An Induction 1249 An Intubation 1250 Anesthesia Ready 1349 An Emergence 1349 An Extubation 1349 Face Mask Applied 1352 Quick Note To pacu on 6l o 2 sfm with oa in place and monitors attached 1357 Post Anesthetic Care Handoff I completed my handoff to the receiving nurse during which we: 1. Identified the patient 2. Identified the responsible provider 3. Reviewed the pertinent medical history 4. Discussed the surgical course 5. Reviewed intra-op anesthesia management and issues during anesthesia 6. Set expectations for post-procedure period 7. Allowed opportunity for questions and acknowledgement of understanding. 1357 an stop data 1359 An Stop Meds Name Total midazolam 2 mg/2 mL injection 2 mg fentaNYL (SUBLIMAZE) 100 mcg/2 mL inject ion 125 mcg lidocaine (PF) (XYLOCAINE) 2% injection 80 mg propofol (DIPRIVAN) 200 mg/20 mL injecti on 200 mg succinylcholine (ANECTINE) 20 mg/mL inje ction 100 mg rocuronium (ZEMURON) 50 mg/5 mL injectio n 30 mg ketorolac (TORADOL) 30 mg/mL injection 3 0 mg dexamethasone (DECADRON) injection 8 mg sugammadex (BRIDION) 200 mg/2 mL injecti on 200 mg lactated ringers infusion 1,100 mL * Agents Name O2 N2O Air Inspired Sevoflurane Inspired Isoflurane Sevoflurane Isoflurane * Blood No blood administrations on file. Lines, Drains, and Airways Type Details Placement Removal Peripheral IV Placement Date: 11/06 06/22; Placement Time: 1155; Placed Outside of This Facility?: No; Size: 20 G; Orientation: Right; Location: Hand; Site Prep: Chlorhexidine; Local Anesthetic: None; Inserted By: Drea Mcnamara RN; Insertion attempts: 1; Ultrasound-guided Placement?: No; Patient Tolerance: Tolerated well; Removal Date: 11/29/17; Removal Time: 1620; Removal Reason: Patient Discharged 11/29/17 1155 by Drea Mcnamara RN 11/29/17 1620 by Mervat Duncan RN ETT Placement Date: 11/06 06/22; Placement Time: 1249; Placed Outside of This Facility?:No; Mask Ventilate: Prior to intubation, Easy; Size (mm) : 7; Endotracheal: Oral, Stylet used; Blade Type: Ferreira 2; Placement Method: Direct Laryngoscopy (blade type in comment); View Grade: 1; Viewable Anatomy: Epiglottis, Arytenoid, Vocal cords; Insertion Attempts: 1; Placement Verified By: Capnography, Auscultation, Chest Rise (ett cuff mov); Placed By: UNIVERSITY CONTROLLER; Extubation Assessment: Suctioned, Tolerated well, Deep, Patient spontaneously breathing, Deep breathes w/equal chest movements, Atraumatic; Removal Date: 11/29/17; Removal Time: 1349; Removal Person: UNIVERSITY CONTROLLER; Removal Reason: End of Case 11/29/17 1249 by Napoleon Nielsen CRNA 11/29/17 1349 by Napoleon Nielsen CRNA Cerda Catheter 11/29/17; 1258; No; Urologic Surgical intervention - Bladder, Prostate, CO FOUNDER procedures; 1; Hand hygiene performed, Site cleansed with sterile antiseptic, Sterile gloves, drape and lubricant used, Catheter inserted using aseptic technique, Drainage bag secured below level of bladder, Closed system maintained; (Not secured during procedure, In sterile field); Non-latex, Straight-tip, Double-lumen; 16 Fr.; End of Case 11/29/17 1258 by Perla Dexter RN 11/29/17 1344 by Perla Dexter RN Surgical/Incision 11/29/17; 1338; Surg ical Wound; Abdomen; Monocryl suture, dermabond to 3 trocar sites; 11/29/17; 1835 11/29/17 1338 by Perla Dexter RN 11/29/17 1835 by Automatic Discharge Provider documented in this encounter Social History Tobacco [...] on file documented as of this encounter OR Notes * Anesthesia Postprocedure Evaluation - Benjamin Yanes MD - 11/29/2017 4:05 PM CDT Anesthesia Post-op Note Roxana Amos Procedure(s): LAPAROSCOPIC RIGHT SALPINGOSTOMY (Right Abdomen) Anesthesia type: general Vitals: 11/29/17 1600 BP: 119/80 Vitals: 11/29/17 1600 Pulse: 100 Vitals: 11/29/17 1600 Resp: 18 Vitals: 11/29/17 1600 Temp: 37.1 ??C Vitals: 11/29/17 1600 SpO2: 97% Patient Location: Phase II/Outpatient Level of Consciousness: awake Pain Management: adequate analgesia Airway Patency: patent Respiratory Status: acceptable Cardiovascular Status: acceptable Post-Op Nausea: none Postoperative Hydration: euvolemic Complications: no anesthesia complication * Anesthesia Postprocedure Evaluation - Benjamin Yanes MD - 11/29/2017 2:37 PM CDT Anesthesia Post-op Note Roxana Amos Procedure(s): LAPAROSCOPIC RIGHT SALPINGOSTOMY (Right Abdomen) Anesthesia type: general Vitals: 11/29/17 1600 BP: 119/80 Vitals: 11/29/17 1600 Pulse: 100 Vitals: 11/29/17 1600 Resp: 18 Vitals: 11/29/17 1600 Temp: 37.1 ??C Vitals: 11/29/17 1600 SpO2: 97% Patient Location: PACU Level of Consciousness: awake Pain Management: adequate analgesia Airway Patency: patent Respiratory Status: acceptable Cardiovascular Status: acceptable Post-Op Nausea: none Postoperative Hydration: euvolemic Complications: no anesthesia complication * Anesthesia Preprocedure Evaluation - Benjamin Yanes MD - 11/29/2017 12:12 PM CDT Anesthesia ROS/MED History Reviewed: Patient summary , Nursing notes , ECG, Family history anesthesia, Anesthesia history , Medications , Labs , Images/Studies Pre-Anesthetic State: alert, awake and responds appropriately no history of anesthetic complications Pulmonary (-) smoker Cardiovascular neg cardio ROS Exercise tolerance:good Neuro/Psych neg neuro/psych ROS GI/Hepatic/Renal (+) renal disease, (Renal Calculi)(-) GERD Endo/Other Comments: PCOS GENERAL COMMENTS -- Latex -- Hives -- Morphine -- Hives and Itching Past Medical History: No date: Ectopic No date: Kidney stones No date: PCOS (polycystic ovarian syndrome) Comment: on Metformin Past Surgical History: No date: CHOLECYSTECTOMY Physical Evaluation Airway Mallampati: II TM Distance: >3 FB Neck ROM: normal Dental No notable dental history Pulmonary Pulmonary exam normal Breath sounds clear to auscultation Cardiovascular Rhythm: regular Rate: normal Cardiovascular exam normal Other findings: Height 5' 5 (1.651 m), weight 78.5 kg (173 lb), last menstrual period 09/25/2017. 11/29/17 1022 WBC 6.3 RBC 4.27 HGB 12.5 HCT 37.9* PLT 343 Anesthesia Plan ASA 2 Intravenous Induction Anesthesia type: general Discussed potential risks of General Anesthesia including but not limited to corneal abrasion, visual impairment or visual loss, mouth injury, dental damage, sore throat, hoarseness, esophageal injury, awareness under anesthesia, nerve injury due to positioning, aspiration, pneumonia, stroke, cardiac event, adverse drug reactions and . Informed Consent Anesthetic plan and risks discussed with patient of whom consent was obtained. . documented in this encounter Plan of Treatment Not on file documented as of this encounter Visit Diagnoses Not on filedocumented in this encounter Administered Medications Inactive Administered Medications - up to 3 most recent administrations Medication Order MAR Action Action Date Dose Rate Site dexamethasone (DECADRON) injection PRN, Starting on Amanda 11/29/17 at 1255, Until Amanda 11/29/17 at 1359, Anesthesia Intra-Op Given 11/29/2017 12:55 PM CDT 8 mg fentaNYL (SUBLIMAZE) injection Intravenous, PRN, Starting on Amanda 11/29/17 at 1247, Until Amanda 11/29/17 at 1359, Anesthesia Intra-Op Given 11/29/2017 1:40 PM CDT 25 mcg Given 11/29/2017 1:07 PM CDT 50 mcg Given 11/29/2017 12:47 PM CDT 50 mcg ketorolac (TORADOL) injection Intravenous, PRN, Starting on Amanda 11/29/17 at 1337, Until Amanda 11/29/17 at 1359, Anesthesia Intra-Op Given 11/29/2017 1:37 PM CDT 30 mg lactated ringers infusion Intravenous, Continuous PRN, Starting on Amanda 11/29/17 at 1240, Until Amanda 11/29/17 at 1359, Anesthesia Intra-Op New Bag 11/29/2017 1:45 PM CDT New Bag 11/29/2017 12:40 PM CDT lidocaine (PF) (XYLOCAINE) 2 % injection Intravenous, PRN, Starting on Amanda 11/29/17 at 1247, Until Amanda 11/29/17 at 1359, Anesthesia Intra-Op Given 11/29/2017 12:47 PM CDT 80 mg midazolam (VERSED) injection Intravenous, PRN, Starting on Amanda 11/29/17 at 1240, Until Amanda 11/29/17 at 1359, Anesthesia Intra-Op Given 11/29/2017 12:40 PM CDT 2 mg propofol (DIPRIVAN) IV bolus Intravenous, PRN, Starting on Amanda 11/29/17 at 1247, Until Amanda 11/29/17 at 1359, Anesthesia Intra-Op Given 11/29/2017 12:47 PM CDT 200 mg rocuronium (ZEMURON) injection Intravenous, PRN, Starting on Amanda 11/29/17 at 1255, Until Amanda 11/29/17 at 1359, Anesthesia Intra-Op Given 11/29/2017 12:55 PM CDT 30 mg succinylcholine (ANECTINE) injection Intravenous, PRN, Starting on Amanda 11/29/17 at 1248, Until Amanda 11/29/17 at 1359, Anesthesia Intra-Op Given 11/29/2017 12:48 PM CDT 100 mg sugammadex (BRIDION) injection PRN, Starting on Amanda 11/29/17 at 1338, Until Amanda 11/29/17 at 1359, Anesthesia Intra-Op Given 11/29/2017 1:38 PM CDT 20 0 mg documented in this encounter Care Teams Commutator Inspector Relationship Specialty Start Date End Date Kit Arriola MD [address] [address] PCP - General 12/01/15 07/13/20 documented as of this encounter
--- OUTSIDE RECORDS SUMMARY | 2024-02-17 13:39 | XMS_ITS | Encounter Summary ---
Author Organization [facility] Address [address] [place] [address] [place] [address] Care Team Providers Care Nursing Executive Name Role Phone Kit Arriola MD Primary Care Provider [phone] Reason for Referral * Imaging (Emergency) - Closed Specialty Diagnoses / Procedures Referred By Contac t Referred To Contact Procedures CT ABD+PEL WO CON Gregg Ramirez PA [address] [place] [address] Phone: tel: fax: Referral ID Status Reason Start Date Expiration Date Visits Re quested Visits Authorized [id number] Closed 07/24/2017 08/23/2018 1 1 Reason for Visit * Reason Comments Back Pain LOWER, ALL OVER Encounter Details Date Type Department Care Team (Latest Contact Info) Description 07/24/2017 4:31 PM CDT - 07/24/2017 5:58 PM CDT Hospital Encounter [facility] [address] [address] Back Pain (LOWER, ALL OVER) Discharge Disposition: Home or Self Care (Routine [...] Sign Reading Time Taken Comments Blood Pressure 126/85 07/24/2017 4:36 PM CDT Pulse 92 07/24/2017 4:36 PM CDT Temperature 36.7 ??C (98.1 ??F) 07/24/2017 4:36 PM CD T Respiratory Rate 18 07/24/2017 4:36 PM CDT Oxygen Saturation 98% 07/24/2017 4:36 PM CDT Inhaled Oxygen Concentration - - Weight 72.6 kg (160 lb) 07/24/2017 4:36 PM CDT Height 165.1 cm (5' 5 ) 07/24/2017 4:36 PM CDT Body Mass Index 26.63 07/24/2017 4:36 PM CDT documented in this encounter Discharge Instructions * Attachments The following attachments cannot be sent through Care Everywhere. * LOW BACK PAIN DISCHARGE INSTRUCTIONS (CROATIAN) documented in this encounter Medications at Time of Discharge cyclobenzaprine 10 MG tablet Take 1 tablet (10 mg total) by mouth 3 (three) times daily as needed for Muscle Spasms. 30 tablet 07/24/2017 08/03/2017 documented as of this encounter ED Notes * CRESENCIO Montes - 07/24/2017 5:10 PM CDT ED NOTE Chief Complaint Chief Complaint Patient presents with ??? Back Pain LOWER, ALL OVER History of Present Illness 27-year-old female presenting to urgent care with complaint of lower back pain for the past 2 weeks. Denies any injury or trauma. Pain is worsened when lifting heavy objects at worst. Pain radiates to bilateral lower back. Patient states she had similar pain when having kidney stones in the past. No relief with ibuprofen at home. Denies hematuria, dysuria, nausea, vomiting, fever, chills, numbness, weakness or paresthesias distally. No other complaints at this time. Medical History ALLERGIES: Allergies Allergen Reactions ??? Morphine Hives and Itching MEDICATIONS: Prior to Admission medications Not on File PAST MEDICAL HISTORY: Past Medical History: Diagnosis Date ??? Kidney [...] No Comment: rare use Review of Systems Review of Systems Constitutional: Negative for activity change and appetite change. HENT: Negative for congestion, ear discharge, ear pain and sore throat. Respiratory: Negative for cough and shortness of breath. Cardiovascular: Negative for chest pain. Gastrointestinal: Negative for abdominal pain, nausea and vomiting. Musculoskeletal: Positive for back pain. Negative for neck pain. Neurological: Negative for dizziness, syncope and light-headedness. Physical Exam Filed Vitals: 07/24/17 1636 BP: 126/85 Pulse: 92 Resp: 18 Temp: 98.1 ??F (36.7 ??C) TempSrc: Oral SpO2: 98% Weight: 72.6 kg (160 lb) Height: 5' 5 (1.651 m) Physical Exam Constitutional: She is oriented to person, place, and time. She appears well- developed and well-nourished. No distress. Neck: Normal range of motion. Neck supple. Cardiovascular: Normal rate, regular rhythm and normal heart sounds. Pulmonary/Chest: Effort normal and breath sounds normal. Abdominal: Soft. Bowel sounds are normal. There is no tenderness. There is no CVA tenderness. Musculoskeletal: Normal range of motion. She exhibits no tenderness. Neurological: She is alert and oriented to person, place, and time. Psychiatric: She has a normal mood and affect. Her behavior is normal. Judgment and thought contentnormal. Nursing note and vitals reviewed. Diagnostic Studies / Procedures ELECTROCARDIOGRAMS: No results found for this visit on 07/24/17. LABORATORY STUDIES: Results for orders placed or performed during the hospital encounter of 07/24/17 TEST URINE Result Value Ref Range PREG TEST NEGATIVE Specific Anita (U) 1.020 >1.009 URINALYSIS AUTO DIP Result Value Ref Range Specimen Type URINE VOIDED COLOR DARK YELLOW TRANSPARENCY CLEAR Specific Anita (U) 1.020 1.001 - 1.030 U PH 5.5 5.0 - 9.0 LEUKOCYTE ESTERASE NEGATIVE NEGATIVE NITRITES NEGATIVE NEGATIVE PROTEIN, URINE NEGATIVE <30 MG/DL URINE GLUCOSE NEGATIVE NEGATIVE MG/DL U KETONES NEGATIVE NEGATIVE MG/DL UROBILINOGEN 0.2 (A) NEGATIVE MG/DL Urine Bilirubin NEGATIVE NEGATIVE MG/DL BLOOD LARGE (A) NEGATIVE CULTURE & SENSITIVITY INDICATED? CULTURE IS NOT INDICATED IMAGING STUDIES CT ABD+PEL WO CON Final Result by User, [email or web address] (07/24 1741) EXAMINATION: CT Abdomen and Pelvis without contrast DATE: 07/24/2017 5:22 PM CLINICAL HISTORY: LOWER BACK, PAIN IN ALL POSITIONS, LIFTING, WALKING, ANY ACTIVITY. PT STATED SHE HAS BEEN SEEN HERE 3 TIMES FOR THE SAME ISSUE, PAIN CONTINUES. PT DENIES ANY URINARY SX, ALTHOUGH SHE STATED SHE HAS A HX OF KIDNEY STONES AND THIS FEELS A LOT LIKE A STONE BUT WORSE. PT STATED KS WAS NEVER ADDRESSED AT PRIOR VISITS HERE. PT HAS A PCP BUT CAN NOT GET THEM TO CALL HER BACK. LAST VISIT HERE, A FEW WEEKS AGO, SHE WAS DX WITH A UTI. COMPARISON: 04/05/2015 TECHNIQUE: Computed tomography of the abdomen and pelvis was obtained without administration of intravenous contrast according to routine protocol. A dose lowering technique was used for this procedure, which may include, but is not limited to, dose reduction technique, automated exposure control, the use of iterative reconstruction, and ALARA (As Low As Reasonably Achievable) / Image Gently techniques. FINDINGS: Bases of lungs are unremarkable. No large pericardial effusion. Noncontrast images of the liver, spleen, pancreas, and adrenal glands are normal. Cholecystectomy clips. No urolithiasis or hydronephrosis. Abdominal aorta is normal caliber. No retroperitoneal hematoma. No bowel obstruction. Appendix is normal. No free air. No ascites. Uterus and ovaries are unremarkable. No free pelvic fluid. No destructive bone lesions. IMPRESSION: 1. No urolithiasis or hydronephrosis. 2. Normal appendix. Course / Medical Decision Making UA with large amount of blood however no signs of urinary tract infection. CT with no evidence of nephrolithiasis. Back pain most likely musculoskeletal. Vital signs are stable. Patient with some relief following medications. Will follow up with primary care Workup Notes Medications ketorolac (TORADOL) injection 60 mg (60 mg Intramuscular Given 07/24/17 1624) Clinical Impression Low back pain (Primary) Hematuria There are no discharge medications for this patient. Disposition: Discharge Follow-Up: Kit Arriola MD [address] [address] Schedule an appointment as soon as possible for a visit in 1 week CRESENCIO Montes 07/24/2017 CRESENCIO Montes 07/24/17 3224 Cosigned by Uriel Crenshaw MD at 07/25/2017 4:44 PM CDT * Gertrudis Benavides RN - 07/24/2017 4:38 PM CDT PT TO UC WITH C/O OF LOWER BACK, PAIN IN ALL POSITIONS, LIFTING, WALKING, ANY ACTIVITY. PT STATED SHE HAS BEEN SEEN HERE 3 TIMES FOR THE SAME ISSUE, PAIN CONTINUES. PT DENIES ANY URINARY SX, ALTHOUGHSHE STATED SHE HAS A HX OF KIDNEY STONES AND THIS FEELS A LOT LIKE A STONE BUT WORSE. PT STATED KS WAS NEVER ADDRESSED AT PRIOR VISITS HERE. PT HAS A PCP BUT CAN NOT GET THEM TO CALL HER BACK. LAST VISIT HERE, A FEW WEEKS AGO, SHE WAS DX WITH A UTI. documented in this encounter Plan of Treatment Not on file documented as of this encounter Procedures Procedure Name Priority Date/Time Associated Diagnosis Comments CT ABD+PEL WO CON STAT 07/24/2017 5:2 5 PM CDT TEST URINE STAT 07/24/2017 4:42 PM CDT URINALYSIS AUTO DIP STAT 07/24/2017 4 :42 PM CDT documented in this encounter Results * CT ABD+PEL WO CON (07/24/2017 5:25 PM CDT) Anatomical Region Laterality Modality Abdomen Computed Tomogra phy 07/24/2017 5:33 PM CDT Impressions 07/24/2017 5:41 PM CDT IMPRESSION: 1. No urolithiasis or hydronephrosis. 2. Normal appendix. Narrative 07/24/2017 5:41 PM CDT EXAMINATION: CT Abdomen and Pelvis without contrast DATE: 07/24/2017 5:22 PM CLINICAL HISTORY: LOWER BACK, PAIN IN ALL POSITIONS, LIFTING, WALKING, ANY ACTIVITY. PT STATED SHE HAS BEEN SEEN HERE 3 TIMES FOR THE SAME ISSUE, PAIN CONTINUES. PT DENIES ANY URINARY SX, ALTHOUGH SHE STATED SHE HAS A HX OF KIDNEY STONES AND THIS FEELS A LOT LIKE A STONE BUT WORSE. PT STATED KS WAS NEVER ADDRESSED AT PRIOR VISITS HERE. PT HAS A PCP BUT CAN NOT GET THEM TO CALL HER BACK. LAST VISIT HERE, A FEW WEEKS AGO, SHE WAS DX WITH A UTI. COMPARISON: 04/05/2015 TECHNIQUE: Computed tomography of the abdomen and pelvis was obtained without administration of intravenous contrast according to routine protocol. A dose lowering technique was used for this procedure, which may include, but is not limited to, dose reduction technique, automated exposure control, the use of iterative reconstruction, and ALARA (As Low As Reasonably Achievable) / Image Gently techniques. FINDINGS: Bases of lungs are unremarkable. No large pericardial effusion. Noncontrast images of the liver, spleen, pancreas, and adrenal glands are normal. Cholecystectomy clips. No urolithiasis or hydronephrosis. Abdominal aorta is normal caliber. No retroperitoneal hematoma. No bowel obstruction. Appendix is normal. No free air. No ascites. Uterus and ovaries are unremarkable. No free pelvic fluid. No destructive bone lesions. Procedure Note Jeison Anthony MD - 07/24/2017 EXAMINATION: CT Abdomen and Pelvis without contrast DATE: 07/24/2017 5:22 PM CLINICAL HISTORY: LOWER BACK, PAIN IN ALL POSITIONS, LIFTING, WALKING,ANY ACTIVITY. PT STATED SHE HAS BEEN SEEN HERE 3 TIMES FOR THE SAME ISSUE,PAIN CONTINUES. PT DENIES ANY URINARY SX, ALTHOUGH SHE STATED SHE HAS A HX OF KIDNEY STONES AND THIS FEELS A LOT LIKE A STONE BUT WORSE. PT STATED KSWAS NEVER ADDRESSED AT PRIOR VISITS HERE. PT HAS A PCP BUT CAN NOT GET THEMTO CALL HER BACK. LAST VISIT HERE, A FEW WEEKS AGO, SHE WAS DX WITH A UTI. COMPARISON: 04/05/2015 TECHNIQUE: Computed tomography of the abdomen and pelvis was obtained without administration of intravenous contrast according to routine protocol. A dose lowering technique was used for this procedure, whichmay include, but is not limited to, dose reduction technique, automated exposure control, the use of iterative reconstruction, and ALARA (As LowAs Reasonably Achievable) / Image Gently techniques. FINDINGS: Bases of lungs are unremarkable. No large pericardial effusion. Noncontrast images of the liver, spleen, pancreas, and adrenal glandsare normal. Cholecystectomy clips. No urolithiasis or hydronephrosis. Abdominal aorta is normal caliber. No retroperitoneal hematoma. No bowel obstruction. Appendix is normal. No free air. No ascites. Uterus and ovaries are unremarkable. No free pelvic fluid. Nodestructive bone lesions. IMPRESSION: 1. No urolithiasis or hydronephrosis. 2. Normal appendix. Gregg DUPONT CT Final Resul t * (ABNORMAL) URINALYSIS AUTO DIP (07/24/2017 4:42 PM CDT) SPECIMEN TYPE URINE VOIDED 8 4:[address] [facility] COLOR (U) DARK YELLOW 07/24/2017 4:[address] [facility] Comment: TESTING PERFORMED AT [address] ??[id number] IRVING LONG M.D., STONE AND CONCRETE WASHER TRANSPARENCY CLEAR 07/24/2017 4:[address] [facility] SPECIFIC GRAVITY (U) 1.020 1.001 - 1.030 07/24/2017 4:[address] [facility] U PH 5.5 5.0 - 9.0 07/24/2017 4:[address] [facility] LEUKOCYTES (U) NEGATIVE NEGATIVE 07/24/2017 4:[address] [facility] NITRITES NEGATIVE NEGATIVE 07/24/2017 4:[address] [facility] PROTEIN (U) NEGATIVE <30 MG/DL 07/24/2017 4:[address] [facility] URINE GLUCOSE NEGATIVE NEGATIVE MG/DL 07/24/2017 4:[address] [facility] KETONES MG/DL (U) NEGATIVE NEGATIVE MG/DL 07/24/2017 4:[address] [facility] UROBILINOGEN 0.2(A) NEGATIVE MG/DL 07/24/2017 4:[address] [facility] BILIRUBIN (U) NEGATIVE NEGATIVE MG/DL 07/24/2017 4:[address] [facility] BLOOD (U) LARGE(A) NEGATIVE 07/24/2017 4:[address] [facility] CULTURE & SENSITIVITY INDICATED? CULTURE IS NOT INDICATED 07/24/2017 4:[address] [facility] URINE SPECIMEN FROM URETHRA / Unknown 07/24/2017 4:42 PM CDT Gregg DUPONT URINE ORDERABLES Final Resu lt Performing Organization Address City/[facility]/ZIP Co de Phone Number [facility] [address] [place] [address], * TEST URINE (07/24/2017 4:42 PM CDT) PREG TEST NEGATIVE 07/24/2017 4:[address] [facility] SPECIFIC GRAVITY (U) 1.020 >1.009 07/24/2017 4:[address] [facility] URINE SPECIMEN FROM URETHRA / Unknown 07/24/2017 4:42 PM CDT Gregg DUPONT URINE ORDERABLES [facility] [address], documented in this encounter Visit Diagnoses Diagnosis Low back pain- Primary Lumbago Hematuria Hematuria, unspecified documented in this encounter Administered Medications Inactive Administered Medications - up to 3 most recent administrations Medication Order MAR Action Action Date Dose Rate Site ketorolac (TORADOL) injection 60 mg 60 mg, Intramuscular, Once, 1 dose, On Sun07/24/17 at 1730, For IV administration, give over 15 seconds. Given 07/24/2017 5:18 PM CDT 60 mg Right Ventrogluteal documented in this encounter Active and Recently Administered Medications Times are shown in CDT. Scheduled Medication Order 07/22/2017 07/23/2017 07/24/2017 ketorolac (TORADOL) injection 60 mg (COMPLETED) 60 mg, Intramuscular, Once, 1 dose, On Sun07/24/17 at 1730, For IV administration, give over 15 seconds. 1718 (Given - Provid er: Gertrudis Benavides RN) documented in this encounter Care Teams Nursing Executive Relationship Specialty Start Date End Date Kit Arriola MD [address] [address] PCP - General 12/01/15 07/13/20 documented as of this encounter
--- OUTSIDE RECORDS SUMMARY | 2024-02-17 13:39 | XMS_ITS | Encounter Summary ---
Author Organization [facility] Address [facility] [facility] [address] [place] [address] Care Team Providers Care Marketing Secretary Name Role Phone Kit Arriola MD Primary Care Provider [phone] Reason for Visit * Auth/Cert Specialty Diagnoses / Procedures Referred By Kimberley barrios Referred To Contact Diagnoses ECTOPIC Procedures LAPAROSCOPIC RIGHT SALPINGOSTOMY, POSSIBLE RIGHT SALPINGECTOMY Referral ID Status Reason Start Date Expiration Date Visits Re quested Visits Authorized [id number] 1 1 Encounter Details Date Type Department Care Team (Latest Contact Info) Description 11/29/2017 10:16 AM CDT - 11/29/2017 4:22 PM CDT Hospital Encounter [facility] [place] [address] Dorothy Antonio MD [address] [place] [address] Discharge Disposition: Home or Self Care (Routine [...] Sign Reading Time Taken Comments Blood Pressure 119/80 11/29/2017 4:00 PM CDT Pulse 100 11/29/2017 4:00 PM CDT Temperature 37.1 ??C (98.8 ??F) 11/29/2017 4:00 PM CD T Respiratory Rate 18 11/29/2017 4:00 PM CDT Oxygen Saturation 97% 11/29/2017 4:00 PM CDT Inhaled Oxygen Concentration - - [...] with orlin or stitches. Skin adhesive will fall off the wound when healed. Self care: -Keep [...] through Care Everywhere. * ECTOPIC DISCHARGE INSTRUCTIONS (CZECH) documented in this encounter Medications at Time [...] rupture and requests definitive management with surgery. SENIOR SOFTWARE QUALITY ANALYST History: OB History No data available Menstrual [...] 4:22 PM CDT LAPAROSCOPIC RIGHT SALPINGOSTOMY Mukund Garza Candelaria 11/29/2017Surgeon(s): Dorothy Antonio MD Anesthesiologist: Benjamin Yanes MD GENERAL HARDWARE SALESPERSON: Napoleon Nielsen CRNA Staff: General Maintenance Technician: DAVID Tristan Circulating Nurse 1: Perla Dexter RN Circulating Nurse 2: Ruiz Stephens RN Scrub Person 1: Ina Kolb, BIKE ASSEMBLER Pre-Op Diagnosis: ECTOPIC Post-Op Diagnosis: Same Procedure(s): [...] in comments) PATHOLOGY Dorothy Antonio MD 11/29/2017 1335 Condition: stable on move to Post anesthesia [...] clear. A vaginal speculum was placed. A Hulka uterine manipulator was placed. Attention was turned [...] was very little ectopic tissue noted. The tubewas noted to be mostly edematous. The small [...] test, Echo?) no Do you see a pie icer machine? Who is it? no documented in this encounter Plan of Treatment Not on file documented as of this encounter Procedures Procedure Name Priority Date/Time Associated Diagnosis Comments LAPAROSCOPY 11/29/2017 12:40 PM CDT ECTOPIC Case Notes SCHED WITH KAREN ON 11/28/17 [facility] Special Needs LATEX ALLERGY TYPE & SCREEN [...] 44 MIU/ML 11/30/19 18 11:12 AM CDT [facility] Comment: WEEKS OF ? REFERENCE RANGES [...] - 100,000 11/29/2017 10:2 2 AM CDT Dorothy Antonio MD LABORATORY Final Result Performing Organization Address [facility] de Phone Number [facility] [address] [place] [address], * TYPE & SCREEN (11/29/2017 10:22 AM CDT) Pathologist [facility] ABO/RH A POSITIVE 11/29/2017 12:11 PM CDT [facility] ANTIBODY SCREEN NEGATIVE 12:11 PM CDT [facility] SAMPLE EXPIRATION 12/02/2017 11/29/2017 12:11 PM CDT [facility] 11/29/2017 10:2 2 AM CDT us Dorothy Antonio MD BLOOD BANK TEST ORDERABLES Miryam l Result Performing Organization Address [facility] de Phone Number [facility] [address] [place] [address], * (ABNORMAL) CBC W/DIFF AUTOMATED (11/29/2017 10:22 AM CDT) WBC 6.3 4.5 - 11.0 x10'3/uL 11/29/2017 10:55 AM CDT [facility] RBC 4.27 4.20 - 5.40 x10'6/uL 11/29/2017 10:55 AM CDT [facility] HGB 12.5 12.0 - 16.0 G/DL 11/29/2017 10:55 AM CDT [facility] HCT 37.9(L) 38.0 - 48.0 % 11/29/2017 10:55 AM CDT [facility] MCV 88.8 80.0 - 94.0 FL 11/29/2017 10:55 AM CDT [facility] MCH 29.3 27.0 - 31.0 PG 11/29/2017 10:55 AM CDT [facility] MCHC 33.0 32.0 - 36.0 G/DL 11/29/2017 10:55 AM CDT [facility] RDW 13.1 11.5 - 14.5 % 11/29/2017 10:55 AM CDT [facility] PLT 343 130 - 400 x10'3/uL 11/29/2017 10:55 AM CDT [facility] MPV 9.7 9.3 - 12.2 FL 11/29/2017 10:55 AM CDT [facility] DIFFERENTIAL TYPE AUTOMATED DIFFERENTIAL 11/29/2017 10:55 AM CDT [facility] NEUTROPHILS % 52.2 % 11/29/2017 10:55 AM CDT [facility] LYMPHOCYTES % 36.2 % 11/29/2017 10:55 AM CDT [facility] MONOCYTES % 8.7 % 11/29/2017 10:55 AM CDT [facility] EOSINOPHILS 2.1 % 11/29/2017 10:55 AM CDT [facility] BASOPHILS 0.5 % 11/29/2017 10:55 AM CDT [facility] IMMATURE GRANS % 0.3(H) 0 % 11/30/19 18 10:55 AM CDT [facility] ABS. NEUTROPHILS TOTAL 3.28 1.80 - 7.70 x10'3/uL 11/29/2017 10:55 AM CDT [facility] ABS. LYMPHOCYTES 2.28 1.00 - 4.80 x10'3/uL 11/29/2017 10:55 AM CDT [facility] ABS. MONOCYTES 0.55 0.24 - 0.86 x10'3/uL 11/29/2017 10:55 AM CDT [facility] ABS. EOSINOPHILS 0.13 0.04 - 0.36 x10'3/uL 11/29/2017 10:55 AM CDT [facility] ABS. BASOPHILS 0.03 0.01 - 0.08 x10'3/uL 11/29/2017 10:55 AM CDT [facility] ABS. IMMATURE GRANULOCYTES 0.02 0.00 - 0.03 x10'3/uL 11/29/2017 10:55 AM CDT [facility] 11/29/2017 10:2 2 AM CDT Dorothy Antonio MD LABORATORY Final Result [facility] [address] [place] [address], * Pathology (11/29/2017 12:00 AM CDT) Pathologist [facility] COPATH REPORT ? [facility] ? Department of Pathology ? [address] ? [place], [place] ??[address] ? [id number] ? Pathology Report ? Name: CANDELARIA MUKUND ZARA ?Specimen #: [id number] Age: 1 1990 (Age: 27) ? Location: [facility] Sex: F ? Procedure Date: 11/29/2017 Hospital #: [id number] ? Date Received: 11/29/2017 Date Reported: 11/30/2017 Provider: DOROTHY ANTONIO Gross Description: The specimen is received in a single formalin filled container labeled with the patient's name (Mukund Amos), date and ectopic . ??It contains a [...] LONG ??Pathologist lc/11/30/2017 Electronically Signed Out ? [facility] Tissue specimen (specimen) (OTHER (type in comments)) 11/29/2017 1:35 PM CDT Comment:Dr. Antonio Dorothy Antonio MD PATHOLOGY/CYTOLOGY ORDERABLES F inal Result [facility] [address] [place] [address], [place] [phone] documented in this encounter Visit Diagnoses Diagnosis Ectopic (HHS/HCC)- Primary Unspecified ectopic without intrauterine documented in this encounter Administered Medications Inactive Administered Medications - up to 3 most recent administrations Medication Order MAR Action Action Date Dose Rate Site famotidine (PEPCID) tablet 20 mg 20 [...] Order 11/27/2017 11/28/2017 11/29/2017 BUpivacaine-EPINEPHrine PF 0.5% -[id number] injection (CANCELED) As needed, Starting on Amanda 11/29/17 at 1305, Until Amanda 11/29/17 at 1400, Intra-Op 1305 (Given - Provid [...] (Scale 4 - 7), Starting on Amanda 10//18 at 1501, Until Amanda 10/18 at 1835, Maximum dose of acetaminophen is 4000 mg from all sources in 24 hours., Post-Op meperidine (DEMEROL) injection 12.5 mg (COMPLETED) 12.5 mg, Intravenous, Once as needed, Other, Intractable shivering, 1 dose, Starting on Amanda 10/18 at 1424, Until Amanda 10/18 at 1434, Please call physician if this order is required, PACU 1434 (Given - Provid er: Zamzam Barbosa RN - Comment: for post op shivering) ondansetron (ZOFRAN) injection 4 mg (COMPLETED) 4 mg, Intravenous, Once as needed, Nausea, Vomiting, 1 dose, Starting on Amanda 10/25/18 at 1424, Until Amanda 1025/18 at 1433, Administer slowly over 3-4 minutes. If more than one antiemetic is ordered, use in this order: ondansetron, diphenhydramine, metoclopramide, haloperidol, promethazine. If nausea / vomiting still not controlled, move to next ordered medication., PACU 1433 (Given - Provid er: Zamzam Barbosa RN) oxyCODONE-acetaminophen (PERCOCET) 5-325 MG tablet 1 tablet 1 tablet, Oral, Every 4 hours PRN, Severe pain (Scale 8 - 10), Starting on Amanda 1025/18 at 1501, Until Amanda 10/18 at 1835, Maximum dose of acetaminophen is 4000 mg from all sources in 24 hours., Post-Op 1503 (Given - Provid er: Zamzam Barbosa RN - Comment: historical med) documented in this encounter Care Teams Marketing Secretary Relationship Specialty Start Date End Date Kit Arriola MD [address] [address] PCP - General 12/01/15 07/13/20 documented as of this encounter
--- OUTSIDE RECORDS SUMMARY | 2024-02-17 13:39 | XMS_ITS | Encounter Summary ---
Author Organization [facility] Address [address] [facility] [place] [address] [place] [address] Care Team Providers Care Licensed Mortgage Loan Officer Name Role Phone Kit Arriola MD Primary Care Provider [phone] Encounter Details Date Type Department Care Team (Late st Contact Info) Description 12/06/2016 Abstract [facility] [address] [place] [address] Perla Yun APNP Social History Tobacco Use Types Packs/Day Years [...] Associated Diagnosis Comments URINE BACTERIA CULTURE Routine 12/06/2016 4:05 PM CDT URINALYSIS AUTO DIP STAT 12/06/2016 4 :05 PM CDT documented in this encounter Results * CULTURE URINE (12/06/2016 4:05 PM CDT) SPEC DESCRIPTION URINE CLEAN CATCH 12/06/2016 3:55 PM CDT [facility] SPECIAL REQUESTS NO SPECIAL REQUEST 12/06/2016 3:55 PM CDT [facility] CULTURE RESULT 10,000-49,000 COL/ML ESCHERICHIA COLI 12/08/2016 8:31 AM CDT [facility] CULTURE RESULT 50,000-100,000 COL/ML STREPTOCOCCI, BETA HEMOLYTIC GROUP B SUSCEPTIBILTY NOT ROUTINELY PERFORMED. SAVING ISOLATE FOR 5 DAYS. CONTACT MICROBIOLOGY DEPARTMENT IF FURTHER WORKUP IS INDICATED. 12/08/2016 8:31 AM CDT [facility] URINE SPECIMEN OBTAINED BY CLEAN CATCH PROCEDURE / Unknown 12/06/2016 4:05 PM CDT 12/06/2016 3:55 PM CDT Narrative Organism Antibiotic Method Susceptibility Escherichia coli AMPICILLIN LUIS (VITEK) >=32: Resistant Escherichia coli AMPICILLIN/SULBACTAM LUIS (VITEK) >=32: Resistant Escherichia coli CEFTRIAXONE LUIS (VITEK) <=1: Sensitive Escherichia coli CEFTAZIDIME LUIS (VITEK) <=1: Sensitive Escherichia coli CEFAZOLIN LUIS (VITEK) 8: Sensitive Escherichia coli ESBL LUIS (VITEK) NEG: Sensitive Escherichia coli NITROFURANTOIN LUIS (VITEK) <=16: Sensitive Escherichia coli GENTAMICIN LUIS (VITEK) <=1: Sensitive Escherichia coli LEVOFLOXACIN LUIS (VITEK) <=0.12: Sensitive Escherichia coli PIPRACIL/TAZO LUIS (VITEK) <=4: Sensitive Escherichia coli TRIMETH-SULFAMETH. LUIS (VITEK) >=320: Resistant us Generic Conversion Md OATES MICROBIOLOGY - GENERAL ORDERABLES Final Result [facility] [address] [place] [address], [place] [phone] [facility] [place] [address], [place] [phone] * (ABNORMAL) URINALYSIS AUTO DIP (12/06/2016 4:05 PM CDT) SPECIMEN TYPE URINE CLEAN CATCH 12/06/2016 3:17 PM CDT [facility] COLOR (U) YELLOW 12/06/2016 3:40 PM CDT [facility] Comment: TESTING PERFORMED AT [facility] [address] [place] [address] ??[id number] IRVING LONG M.D., CHASSIS DRIVER TRANSPARENCY CLEAR 12/06/2016 3:40 PM CDT [facility] SPECIFIC GRAVITY (U) 1.025 1.001 - 1.030 12/06/2016 3:40 PM CDT [facility] U PH 6.5 5.0 - 9.0 12/06/2016 3:40 PM T [facility] LEUKOCYTES (U) LARGE(A) NEGATIVE 12/06/2016 3:40 PM CDT [facility] NITRITES NEGATIVE NEGATIVE 12/06/2016 3:40 PM CDT [facility] PROTEIN (U) TRACE <30 MG/DL 12/06/2016 3:40 PM CDT [facility] URINE GLUCOSE NEGATIVE NEGATIVE MG/DL 12/06/2016 3:40 PM T [facility] KETONES MG/DL (U) NEGATIVE NEGATIVE MG/DL 12/06/2016 3:40 PM T [facility] UROBILINOGEN 0.2(A) NEGATIVE MG/DL 12/06/2016 3:40 PM CDT [facility] BILIRUBIN (U) NEGATIVE NEGATIVE MG/DL 12/06/2016 3:40 PM T [facility] BLOOD (U) MODERATE(A) NEGATIVE 12/06/2016 3:40 PM T [facility] CULTURE & SENSITIVITY INDICATED? SPECIMEN SETUP FOR CULTURE 12/06/2016 3:40 PM T [facility] 12/06/2016 4:05 PM CDT 12/06/2016 3:19 PM CDT us Generic Conversion Md OATES URINE ORDERABLES Final Result [facility] [place] [address], documented in this encounter Visit Diagnoses Diagnosis Urinary tract infection Urinary tract infection, site not specified documented in this encounter Care Teams Licensed Mortgage Loan Officer Relationship Specialty Start Date End Date Kit Arriola MD [address] [address] PCP - General 12/01/15 07/13/20 documented as of this encounter
--- OUTSIDE RECORDS SUMMARY | 2024-02-17 13:40 | XMS_ITS | Encounter Summary ---
Author Organization [facility] Address [facility] [facility] [address] [place] [address] Care Team Providers Care Php Wordpress Developer Name Role Phone Luz Buchanan MD Primary Care Provider Unavailable Kit Arriola MD Primary Care Provider [phone] Kit Arriola MD Primary Care Provider [phone] Kit Arriola MD Primary Care Provider [phone] Kit Arriola MD Primary Care Provider [phone] Kit Arriola MD Primary Care Provider [phone] Kit Arriola MD Primary Care Provider [phone] Encounter Details Date Type Department Care Team (Late st Contact Info) Description 07/13/2014 Abstract [facility] [address] [place] [address] Pilar Calvillo, GABRIELLE Social History Tobacco Use Types Packs/Day Years Used Date Smoking Tobacco: Never Assessed Comments Unknown Sex and Gender Information Value Date Recorded Sex Assigned at Not on file Legal Sex Female 8:13 PM CDT Gender Identity Not on file Sexual Orientation Not on file documented as of this encounter Plan of Treatment Not on file documented as of this encounter Visit Diagnoses Diagnosis Otalgia Otalgia, unspecified documented in this encounter Care Teams Php Wordpress Developer Relationship Specialty Start Date End Date Luz Buchanan MD PCP - General 07/13/14 Kit Arriola MD [address] [address] PCP - General 08/18/14 02/01/15 Kit Arriola MD [address] [address] PCP - General 02/02/15 02/08/15 Kit Arriola MD [address] [address] PCP - General 02/09/15 04/04/15 Kit Arriola MD [address] [address] PCP - General 04/05/15 05/02/15 Kit Arriola MD [address] [address] PCP - General 05/03/15 11/30/15 Kit Arriola MD [address] [address] PCP - General 12/01/15 07/13/20 documented as of this encounter
--- OUTSIDE RECORDS SUMMARY | 2024-02-17 13:40 | XMS_ITS | Encounter Summary ---
Author Organization [facility] Address [address] [place] [address] [place] [address] Care Team Providers Care Director Of Consumer Marketing Name Role Phone Md Generic Gardenia OATES Primary Care Provider Unavailable Md Generic Gardenia OATES Primary Care Provider Unavailable Md Generic Gardenia OATES Primary Care Provider Unavailable Md Generic Gardenia OATES Primary Care Provider Unavailable Md Generic Gardenia OATES Primary Care Provider Unavailable Md Generic Gardenia OATES Primary Care Provider Unavailable Md Generic Gardenia OATES Primary Care Provider Unavailable Md Generic Gardenia OATES Primary Care Provider Unavailable Luz Oates MD Primary Care Provider Unavailable Kit Arriola MD Primary Care Provider [phone] Kit Arriola MD Primary Care Provider [phone] Kit Arriola MD Primary Care Provider [phone] Kit Arriola MD Primary Care Provider [phone] Kit Arriola MD Primary Care Provider [phone] Kit Arriola MD Primary Care Provider [phone] Encounter Details Date Type Department Care Team (Late st Contact Info) Description 08/30/[address] [address] [place] [address] Luz Oates MD Social History Tobacco Use Types Packs/Day Years Used Date Smoking Tobacco: Never Assessed Comments Unknown Sex and Gender Information Value Date Recorded Sex Assigned at Not on file Legal Sex Female 8:13 PM CDT Gender Identity Not on file Sexual Orientation Not on file documented as of this encounter Plan of Treatment Not on file documented as of this encounter Visit Diagnoses Diagnosis Gastritis and gastroduodenitis Unspecified gastritis and gastroduodenitis without mention of hemorrhage documented in this encounter Care Teams Director Of Consumer Marketing Relationship Specialty Start Date End Date Md Generic Conversion, PCP - General 08/30/1012/27 Md Generic Conversion, PCP - General 12/28/1001/31 Md Generic Conversion, PCP - General 02/01/11 4 Md Generic Conversion, PCP - General 05/11/13 Md Generic Conversion, PCP - General 07/30/13 4 Md Generic Conversion, PCP - General 10/07/13 Md Generic Conversion, PCP - General 05/31/14 Md Generic Conversion, PCP - General 06/01/14 5 Md Generic Conversion, PCP - General 07/13/14 Kit Arriola MD [address] [address] PCP - General 08/18/14 02/01/15 Kit Arriola MD [address] [address] PCP - General 02/02/15 02/08/15 Kit Arriola MD [address] [address] PCP - General 02/09/15 04/04/15 Kit Arriola MD [address] [address] PCP - General 04/05/15 05/02/15 Kit Arriola MD [address] [address] PCP - General 05/03/15 11/30/15 Kit Arriola MD [address] [address] PCP - General 12/01/15 07/13/20 documented as of this encounter
--- OUTSIDE RECORDS SUMMARY | 2024-02-17 13:40 | XMS_ITS | Encounter Summary ---
Author Organization [facility] Address [address] [facility] [place] [place] [address] [place] [address] Care Team Providers Care Pigment And Lacquer Mixer Name Role Phone Md Generic Conversion Primary Care Provider Unavailable Md Generic Conversion Primary Care Provider Unavailable Md Generic Conversion Primary Care Provider Unavailable Md Generic Conversion Primary Care Provider Unavailable Md Generic Conversion Primary Care Provider Unavailable Kit Arriola MD Primary Care Provider [phone] Kit Arriola MD Primary Care Provider [phone] Kit Arriola MD Primary Care Provider [phone] Kit Arriola MD Primary Care Provider [phone] Kit Arriola MD Primary Care Provider [phone] Kit Arriola MD Primary Care Provider [phone] Encounter Details Date Type Department Care Team (Late st Contact Info) Description 07/30/2013 Abstract [facility] [address] [facility] [place], [place] [address] Nathaly Saab MD [address] [place], [place] [address] Social History Tobacco Use Types Packs/Day Years Used Date Smoking Tobacco: Never Assessed Comments Unknown Sex and Gender Information Value Date Recorded Sex Assigned at Not on file Legal Sex Female 8:13 PM CDT Gender Identity Not on file Sexual Orientation Not on file documented as of this encounter Plan of Treatment Not on file documented as of this encounter Visit Diagnoses Diagnosis Excessive or frequent menstruation documented in this encounter Care Teams Pigment And Lacquer Mixer Relationship Specialty Start Date End Date Md Generic Conversion, PCP - General 07/30/13 Md Generic Conversion, PCP - General 10/07/13 Md Generic Conversion, PCP - General 05/31/14 Md Generic Conversion, PCP - General 06/01/14 Md Generic Conversion, PCP - General 07/13/14 Kit Arriola MD [address] [address] PCP - General 08/18/14 02/01/15 Kit Arriola MD [address] [place] [address] PCP - General 02/02/15 02/08/15 Kit Arriola MD [address] [place] [address] PCP - General 02/09/15 04/04/15 Kit Arriola MD [address] [address] PCP - General 04/05/15 05/02/15 Kit Arriola MD [address] [address] PCP - General 05/03/15 11/30/15 Kit Arriola MD [address] [address] PCP - General 12/01/15 07/13/20 documented as of this encounter
--- OUTSIDE RECORDS SUMMARY | 2024-02-17 13:40 | XMS_ITS | Encounter Summary ---
Author Organization [facility] Address [address] [facility] [place] [address] [place] [address] Care Team Providers Care Sap Functional Analyst Name Role Phone Luz Buchanan MD Primary Care Provider Unavailable Luz Buchanan MD Primary Care Provider Unavailable Kit Arriola MD Primary Care Provider [phone] Kit Arriola MD Primary Care Provider [phone] Kit Arriola MD Primary Care Provider [phone] Kit Arriola MD Primary Care Provider [phone] Kit Arriola MD Primary Care Provider [phone] Kit Arriola MD Primary Care Provider [phone] Encounter Details Date Type Department Care Team (Late st Contact Info) Description 06/01/[address] [facility] [address] Luz Buchanan MD Social History Tobacco Use Types Packs/Day [...] as of this encounter Visit Diagnoses Diagnosis Encounter for supervision of normal in multigravida ([facility]) documented in this encounter Care Teams Sap Functional Analyst Relationship Specialty Start Date End Date , Generic Conversion, PCP - General 06/01/14 5 , Generic Conversion, PCP - General 07/13/14 Kit Arriola MD [address] [address] PCP - General 08/18/14 02/01/15 Kit Arriola MD [address] [address] PCP - General 02/02/15 02/08/15 Kit Arriola MD [address] [address] PCP - General 02/09/15 04/04/15 Kit Arriola MD [address] [address] PCP - General 04/05/15 05/02/15 Kit Arriola MD [address] [address] PCP - General 05/03/15 11/30/15 Kit Arriola MD [address] [address] PCP - General 12/01/15 07/13/20 documented as of this encounter
--- OUTSIDE RECORDS SUMMARY | 2024-02-17 13:40 | XMS_ITS | Encounter Summary ---
Author Organization [facility] Address [address] [place] [address] [place] [address] Care Team Providers Care Roller Coaster Engineer Name Role Phone Md Generic Conversion Primary [...] Unavailable Kit Arriola MD Primary Care Provider [phone] Kit Arriola MD Primary Care Provider [phone] Kit Arriola MD Primary Care Provider [phone] Kit Arriola MD Primary Care Provider [phone] Kit Arriola MD Primary Care Provider [phone] Kit Arriola MD Primary Care Provider [phone] Encounter Details Date Type Department Care Team (Late st Contact Info) Description 12/28/[address] [facility] [address] [place] [address] Richi Rajan MD [address] [address] Social History Tobacco Use Types Packs/Day Years Used Date Smoking Tobacco: Never Assessed Comments Unknown Sex and Gender Information Value Date Recorded Sex Assigned at Not on file Legal Sex Female 8:13 PM CDT Gender Identity Not on file Sexual Orientation Not on file documented as of this encounter Plan of Treatment Not on file documented as of this encounter Visit Diagnoses Diagnosis Urinary tract infection Urinary tract infection, site not specified documented in this encounter Care Teams Roller Coaster Engineer Relationship Specialty Start Date End Date Md Generic Conversion, PCP - General 12/28/1001/31 [...] General 07/13/14 Kit Arriola MD [address] [address] PCP - General 08/18/14 02/01/15 Kit Arriola MD [address] [address] PCP - General 02/02/15 02/08/15 Kit Arriola MD [address] [address] PCP - General 02/09/15 04/04/15 Kit Arriola MD [address] [address] PCP - General 04/05/15 05/02/15 Kit Arriola MD [address] [address] PCP - General 05/03/15 11/30/15 Kit Arriola MD [address] [address] PCP - General 12/01/15 07/13/20 documented as of this encounter
--- OUTSIDE RECORDS SUMMARY | 2024-02-17 13:40 | XMS_ITS | Encounter Summary ---
Author Organization [facility] Address [address] [place] [address] [place] [address] Care Team Providers Care Boat Outfitter Name Role Phone Kit Arriola MD Primary Care Provider [phone] Kit Arriola MD Primary Care Provider [phone] Kit Arriola MD Primary Care Provider [phone] Kit Arriola MD Primary Care Provider [phone] Kit Arriola MD Primary Care Provider [phone] Kit Arriola MD Primary Care Provider [phone] Encounter Details Date Type Department Care Team (Late st Contact Info) Description 08/18/[address] [facility] [address] [place], [place] [address] Ravi Mendoza, DRAFTER CARTOGRAPHIC [address] [facility] PROFESSIONAL [facility] [place] [address] Social History Tobacco Use Types Packs/Day Years Used Date Smoking Tobacco: Never Assessed Comments Unknown Sex and Gender Information Value Date Recorded Sex Assigned at Not on file Legal Sex Female 8:13 PM CDT Gender Identity Not on file Sexual Orientation Not on file documented as of this encounter Plan of Treatment Not on file documented as of this encounter Visit Diagnoses Diagnosis Other, multiple, and unspecified sites, insect bite, nonvenomous documented in this encounter Care Teams Boat Outfitter Relationship Specialty Start Date End Date Kit Arriola MD [address] [address] PCP - General 08/18/14 02/01/15 Kit Arriola MD [address] [place] [address] PCP - General 02/02/15 02/08/15 Kit Arriola MD [address] [address] PCP - General 02/09/15 04/04/15 Kit Arriola MD [address] [place] [address] PCP - General 04/05/15 05/02/15 Kit Arriola MD [address] [address] PCP - General 05/03/15 11/30/15 Kit Arriola MD [address] [address] PCP - General 12/01/15 07/13/20 documented as of this encounter
--- OUTSIDE RECORDS SUMMARY | 2024-02-17 13:40 | XMS_ITS | Encounter Summary ---
Author Organization [facility] Address [address] [facility] [place] [address] [place] [address] Care Team Providers Care Aligner Typewriter Name Role Phone Md Generic Conversion Primary Care Provider Unavailable Md Generic Conversion Primary Care Provider Unavailable Md Generic Conversion Primary Care Provider Unavailable Md Generic Conversion Primary Care Provider Unavailable Md Generic Conversion Primary Care Provider Unavailable Md Generic Conversion Primary Care Provider Unavailable Kit Arriola MD Primary Care Provider [phone] Kit Arriola MD Primary Care Provider [phone] Kit Arriola MD Primary Care Provider [phone] Kit Arriola MD Primary Care Provider [phone] Kit Arriola MD Primary Care Provider [phone] Kit Arriola MD Primary Care Provider [phone] Encounter Details Date Type Department Care Team (Late st Contact Info) Description 05/11/[address] [facility] [address] [place] [address] Nathaly Saab MD [address] [facility] [address] [place] [address] Social History Tobacco Use Types Packs/Day Years [...] specified documented in this encounter Care Teams Aligner Typewriter Relationship Specialty Start Date End Date Md Generic Conversion, PCP - General 05/11/13 Md Generic Conversion, PCP - General 07/30/13 4 Md Generic Conversion, PCP - General 10/07/13 Md Generic Conversion, PCP - General 05/31/14 Md Generic Conversion, PCP - General 06/01/14 5 Md Generic Conversion, PCP - General 07/13/14 Kit Arriola MD [address] [address] PCP - General 08/18/14 02/01/15 Kit Arriola MD [address] [address] PCP - General 02/02/15 02/08/15 Kit Arriola MD [address] [address] PCP - General 02/09/15 04/04/15 Kit Arriola MD [address] [address] PCP - General 04/05/15 05/02/15 Kit Arriola MD [address] [address] PCP - General 05/03/15 11/30/15 Kit Arriola MD [address] [address] PCP - General 12/01/15 07/13/20 documented as of this encounter
--- OUTSIDE RECORDS SUMMARY | 2024-02-17 13:40 | XMS_ITS | Encounter Summary ---
Author Organization [facility] Address [address] [place] [address] [place] [address] Care Team Providers Care Head Porter Name Role Phone Md Generic Gardenia OATES [...] Unavailable Kit Arriola MD Primary Care Provider [phone] Kit Arriola MD Primary Care Provider [phone] Kit Arriola MD Primary Care Provider [phone] Kit Arriola MD Primary Care Provider [phone] Kit Arriola MD Primary Care Provider [phone] Kit Arriola MD Primary Care Provider [phone] Encounter Details Date Type Department Care Team (Late st Contact Info) Description 08/30/[address] [facility] [address] [place] [address] Luz Oates MD Social History [...] on filedocumented in this encounter Care Teams Head Porter Relationship Specialty Start Date End Date Md [...] - General 07/13/14 Kit Arriola MD [address] [address] PCP - General 08/18/14 02/01/15 Kit Arriola MD [address] [address] PCP - General 02/02/15 02/08/15 Kit Arriola MD [address] [address] PCP - General 02/09/15 04/04/15 Kit Arriola MD [address] [address] PCP - General 04/05/15 05/02/15 Kit Arriola MD [address] [address] PCP - General 05/03/15 11/30/15 Kit Arriola MD [address] [address] PCP - General 12/01/15 07/13/20 documented as of this encounter
--- OUTSIDE RECORDS SUMMARY | 2024-02-17 13:40 | XMS_ITS | Encounter Summary ---
Author Organization [facility] Address [address] [facility] [place] [address] [place] [address] Care Team Providers Care Scoring Machine Operator Name Role Phone Md Generic Gardenia OATES [...] Unavailable Kit Arriola MD Primary Care Provider [phone] Kit Arriola MD Primary Care Provider [phone] Kit Arriola MD Primary Care Provider Kit Arriola MD Primary Care Provider [phone] Kit Arriola MD Primary Care Provider [phone] Kit Arriola MD Primary Care Provider [phone] Encounter Details Date Type Department Care Team (Late st Contact Info) Description 08/17/[address] [address] [place] [address] Luz Oates MD Social History [...] on filedocumented in this encounter Care Teams Scoring Machine Operator Relationship Specialty Start Date End Date Md [...] - General 07/13/14 Kit Arriola MD [address] [address] PCP - General 08/18/14 02/01/15 Kit Arriola MD [address] [address] PCP - General 02/02/15 02/08/15 Kit Arriola MD [address] [address] PCP - General 02/09/15 04/04/15 Kit Arriola MD [address] [address] PCP - General 04/05/15 05/02/15 Kit Arriola MD [address] [address] PCP - General 05/03/15 11/30/15 Kit Arriola MD [address] [address] PCP - General 12/01/15 07/13/20 documented as of this encounter
--- OUTSIDE RECORDS SUMMARY | 2024-02-17 13:40 | XMS_ITS | Encounter Summary ---
Author Organization [facility] Address [address] [facility] [place] [address] [place] [address] Care Team Providers Care Revenue Inspector Name Role Phone Luz Buchanan MD Primary Care Provider Unavailable Luz Buchanan MD Primary Care Provider Unavailable Luz Buchanan MD Primary Care Provider Unavailable Luz Buchanan MD Primary Care Provider Unavailable Kit Arriola MD Primary Care Provider [phone] Kit Arriola MD Primary Care Provider [phone] Kit Arriola MD Primary Care Provider [phone] Kit Arriola MD Primary Care Provider [phone] Kit Arriola MD Primary Care Provider [phone] Kit Arriola MD Primary Care Provider [phone] Encounter Details Date Type Department Care Team (Late st Contact Info) Description 10/07/[address] [facility] [place] [address] Luz Buchanan MD Social History Tobacco Use [...] as of this encounter Visit Diagnoses Diagnosis Irregular menstrual cycle documented in this encounter Care Teams Revenue Inspector Relationship Specialty Start Date End Date Md Generic Conversion, PCP - General 10/07/13 Md Generic Conversion, PCP - General 05/31/14 Md Generic Conversion, PCP - General 06/01/14 5 Md Generic Conversion, PCP - General 07/13/14 Kit Arriola MD [address] [address] PCP - General 08/18/14 02/01/15 Kit Arriola MD [address] [address] PCP - General 02/02/15 02/08/15 Kit Arriola MD [address] [address] PCP - General 02/09/15 04/04/15 Kit Arriola MD [address] [address] PCP - General 04/05/15 05/02/15 Kit Arriola MD [address] [address] PCP - General 05/03/15 11/30/15 Kit Arriola MD [address] [address] PCP - General 12/01/15 07/13/20 documented as of this encounter
--- OUTSIDE RECORDS SUMMARY | 2024-02-17 13:40 | XMS_ITS | Encounter Summary ---
Author Organization [facility] Address [address] [facility] [place] [address] [place] [address] Care Team Providers Care Felter Tennis Balls Name Role Phone Kit Arriola MD Primary Care Provider [phone] Kit Arriola MD Primary Care Provider [phone] Kit Arriola MD Primary Care Provider [phone] Kit Arriola MD Primary Care Provider Kit Arriola MD Primary Care Provider [phone] Encounter Details Date Type Department Care Team (Late st Contact Info) Description 02/02/[address] [facility] [address] [place], [place] [id number] Gurvinder Yee, MANUELA [address] [facility] [address] [address] [place] [address] Social History Tobacco Use Types Packs/Day Years [...] BMP W IONIZED CA WH BLOOD STAT 02/02/2015 7:20 PM ANIMAL HUSBANDRY TECHNICIAN CBC, AUTO, NO DIFF STAT 02/02/2015 7: 20 PM ANIMAL HUSBANDRY TECHNICIAN URINALYSIS AUTO DIP STAT 02/02/2015 7 :05 PM ANIMAL HUSBANDRY TECHNICIAN documented in this encounter Results * (ABNORMAL) BMP W IONIZED CA BLOOD (02/02/2015 7:20 PM ANIMAL HUSBANDRY TECHNICIAN) [facility] GLUCOSE POC 109(H) 70 - 99 mg/dL 02/02/2015 8:06 PM ANIMAL HUSBANDRY TECHNICIAN [facility] Comment: TESTING PERFORMED AT [address] ??[id number] ELAN WADE M.D., INSPECTOR GENERAL BUN WHOLE BLOOD 12 8 - 23 mg/dL 02/02/2015 8:06 PM ANIMAL HUSBANDRY TECHNICIAN [facility] CREATININE WHOLE BLOOD 0.8 0.60 - 1.10 mg/dL 02/02/2015 8:06 PM ANIMAL HUSBANDRY TECHNICIAN [facility] SODIUM WHOLE BLOOD 141 136 - 145 mmol/L 02/02/2015 8:06 PM [facility] POTASSIUM WHOLE BLOOD 4.0 3.5 - 5.1 mmol/L 02/02/2015 8:06 PM ANIMAL HUSBANDRY TECHNICIAN [facility] CHLORIDE WHOLE BLOOD 103 98 - 107 mmol/L 02/02/2015 8:06 PM ANIMAL HUSBANDRY TECHNICIAN [facility] POC CO2 WHOLE BLOOD 21(L) 22 - 29 mmol/L 02/02/2015 8:06 PM ANIMAL HUSBANDRY TECHNICIAN [facility] CA IONIZED BLOOD 1.14 1.12 - 1.32 mmol/L 02/02/2015 8:06 PM ANIMAL HUSBANDRY TECHNICIAN [facility] ANION GAP 21(H) 8 - 20 MMOL/L 02/02/2015 8:06 PM [facility] EGFR NON-AFR. AMER. >60 >60 mL/min/1.7 3m'2 02/02/2015 8:06 PM [facility] EGFR AFR. AMER. >60 >60 mL/min/1.7 3m'2 02/02/2015 8:06 PM [facility] Comment: NOTE: eGFR is not calculated for patients <18 years of age. This is an estimated GFR (CKD EPI) and should not be used for calculating drug doses. 02/02/2015 7:20 PM ANIMAL HUSBANDRY TECHNICIAN 02/02/2015 7:24 PM ANIMAL HUSBANDRY TECHNICIAN us Generic Conversion Md [facility] Final R esult [facility] [address] [place] [address], [place] [phone] * (ABNORMAL) CBC, AUTO, NO DIFF (02/02/2015 7:20 PM ANIMAL HUSBANDRY TECHNICIAN) WBC 9.7 4.8 - 10.8 X10'3/uL 02/02/2015 8:06 PM [facility] Comment: TESTING PERFORMED AT [address] ??[id number] ELAN WADE M.D., INSPECTOR GENERAL RBC 4.12(L) 4.20 - 5.40 X10'6/uL 02/02/2015 8:06 PM [facility] HGB 11.4(L) 12.0 - 16.0 g/dL 02/02/2015 8:06 PM [facility] HCT 34.8(L) 38.0 - 48.0 % 02/02/2015 8:06 PM [facility] MCV 84.5 81.0 - 99.0 fL 02/02/2015 8:06 PM [facility] MCH 27.7 27.0 - 31.0 pg 02/02/2015 8:06 PM ANIMAL HUSBANDRY TECHNICIAN [facility] MCHC 32.8 32.0 - 36.0 g/dL 02/02/2015 8:06 PM ANIMAL HUSBANDRY TECHNICIAN [facility] RDW 13.5 11.5 - 14.5 % 02/02/2015 8:06 PM [facility] PLT 385 130 - 400 X10'3/uL 02/02/2015 8:06 PM [facility] MPV 8.9(L) 9.3 - 12.2 fL 02/02/2015 8:06 PM [facility] 02/02/2015 7:20 PM ANIMAL HUSBANDRY TECHNICIAN 02/02/2015 7:24 PM ANIMAL HUSBANDRY TECHNICIAN us Generic Conversion Md [facility] Final R esult Performing Organization Address City/State/[facility] Co de Phone Number [facility] [address] [place] [address], * (ABNORMAL) URINALYSIS AUTO DIP (02/02/2015 7:05 PM ANIMAL HUSBANDRY TECHNICIAN) SOURCE (FLUID) URINE CLEAN CATCH 02/02/2015 7:05 PM [facility] COLOR (U) YELLOW 02/02/2015 7:37 PM [facility] Comment: TESTING PERFORMED AT [facility] [address] [place] [id number] ELAN WADE M.D., INSPECTOR GENERAL [place] CUNHA 02/02/2015 7:37 PM [facility] SPECIFIC GRAVITY (U) 1.030 1.001 - 1.030 02/02/2015 7:37 PM [facility] U PH 5.5 5.0 - 9.0 02/02/2015 7:37 PM [facility] LEUKOCYTES (U) NEGATIVE NEGATIVE 02/02/2015 7:37 PM ANIMAL HUSBANDRY TECHNICIAN [facility] NITRITES NEGATIVE NEGATIVE 02/02/2015 7:37 PM [facility] PROTEIN (U) 100(H) <30 MG/DL 02/02/2015 7:37 PM [facility] URINE GLUCOSE NEGATIVE NEGATIVE MG/DL 02/02/2015 7:37 PM ANIMAL HUSBANDRY TECHNICIAN [facility] KETONES MG/DL (U) TRACE(A) NEGATIVE MG/DL 02/02/2015 7:37 PM ANIMAL HUSBANDRY TECHNICIAN [facility] UROBILINOGEN NEGATIVE NEGATIVE MG/DL 02/02/2015 7:37 PM [facility] BILIRUBIN (U) SMALL(A) NEGATIVE MG/DL 02/02/2015 7:37 PM [facility] BLOOD (U) MODERATE(A) NEGATIVE 02/02/2015 7:37 PM [facility] CULTURE & SENSITIVITY INDICATED? CULTURE IS NOT INDICATED 02/02/2015 7:37 PM [facility] 02/02/2015 7:05 PM ANIMAL HUSBANDRY TECHNICIAN 02/02/2015 7:16 PM ANIMAL HUSBANDRY TECHNICIAN us Generic Conversion Md [facility] URINE ORDERABLES Final Result Performing Organization Address City/State/[facility] de Phone Number [facility] [address] [place] [address], documented in this encounter Visit Diagnoses Diagnosis Abdominal pain Abdominal pain, unspecified site documented in this encounter Care Teams Felter Tennis Balls Relationship Specialty Start Date End Date Kit Arriola MD [address] [address] PCP - General 02/02/15 02/08/15 Kit Arriola MD [address] [address] PCP - General 02/09/15 04/04/15 Kit Arriola MD [address] [address] PCP - General 04/05/15 05/02/15 Kit Arriola MD [address] [address] PCP - General 05/03/15 11/30/15 Kit Arriola MD [address] [address] PCP - General 12/01/15 07/13/20 documented as of this encounter
--- OUTSIDE RECORDS SUMMARY | 2024-02-17 13:40 | XMS_ITS | Encounter Summary ---
Author Organization [facility] Address [address] [facility] [place] [address] [place] [address] Care Team Providers Care Artists' Model Name Role Phone Md Generic Gardenia [facility] [...] Unavailable Kit Arriola MD Primary Care Provider [phone] Kit Arriola MD Primary Care Provider [phone] Kit Arriola MD Primary Care Provider [phone] Kit Arriola MD Primary Care Provider [phone] Kit Arriola MD Primary Care Provider [phone] Kit Arriola MD Primary Care Provider [phone] Encounter Details Date Type Department Care Team (Late st Contact Info) Description 05/26/[address] [facility] [address] [place] [address] Luz Oates MD Social History [...] on filedocumented in this encounter Care Teams Artists' Model Relationship Specialty Start Date End Date Md [...] - General 07/13/14 Kit Arriola MD [address] [address] PCP - General 08/18/14 02/01/15 Kit Arriola MD [address] [address] PCP - General 02/02/15 02/08/15 Kit Arriola MD [address] [address] PCP - General 02/09/15 04/04/15 Kit Arriola MD [address] [address] PCP - General 04/05/15 05/02/15 Kit Arriola MD [address] [address] PCP - General 05/03/15 11/30/15 Kit Arriola MD [address] [address] PCP - General 12/01/15 07/13/20 documented as of this encounter
--- OUTSIDE RECORDS SUMMARY | 2024-02-17 13:40 | XMS_ITS | Encounter Summary ---
Author Organization [facility] Address [address] [place] [address] [place] [address] Care Team Providers Care Sales Floor Manager Name Role Phone Kit Arriola MD Primary Care Provider [phone] Kit Arriola MD Primary Care Provider [phone] Kit Arriola MD Primary Care Provider [phone] Kit Arriola MD Primary Care Provider [phone] Encounter Details Date Type Department Care Team (Late st Contact Info) Description 02/09/[address] [facility] [address] [place], [place] [id number] Gurvinder Yee, APGABRIELLE [address] [facility] [address] [place] [address] Social History Tobacco Use Types Packs/Day Years [...] Date/Time Associated Diagnosis Comments TEST URINE STAT 02/09/2015 8:10 AM DAIRY ASSOCIATE URINE BACTERIA CULTURE Routine 02/09/2015 8:04 AM DAIRY ASSOCIATE URINALYSIS AUTO DIP STAT 02/09/2015 8 :04 AM DAIRY ASSOCIATE documented in this encounter Results * TEST URINE (02/09/2015 8:10 AM DAIRY ASSOCIATE) PREG TEST NEGATIVE 02/09/2015 8:25 AM DAIRY ASSOCIATE [facility] Comment: TESTING PERFORMED AT [facility] [address] [place] [id number] ELAN WADE M.D., SPUD DRILLER SPECIFIC GRAVITY (U) 1.025 >1.009 02/09/2015 8:25 AM DAIRY ASSOCIATE [facility] 02/09/2015 8:10 AM DAIRY ASSOCIATE 02/09/2015 8:14 AM DAIRY ASSOCIATE us Generic Conversion Md [facility] URINE ORDERABLES Final Result Performing Organization Address City/[facility]/ZIP Co de Phone Number [facility] [address] [place] [address], * CULTURE URINE (02/09/2015 8:04 AM DAIRY ASSOCIATE) SPEC DESCRIPTION URINE CLEAN CATCH 02/09/2015 9:19 AM DAIRY ASSOCIATE [facility] SPECIAL REQUESTS NO SPECIAL REQUEST 02/09/2015 9:19 AM DAIRY ASSOCIATE [facility] CULTURE RESULT POLYMICROBIAL GROWTH CONSISTENT WITH NORMAL GENITAL PHILIP. ?? SUSCEPTIBILITIES NOT ROUTINELY PERFORMED. 02/11/2015 7:01 AM DAIRY ASSOCIATE [facility] URINE SPECIMEN OBTAINED BY CLEAN CATCH PROCEDURE / Unknown 02/09/2015 8:04 AM DAIRY ASSOCIATE 02/09/2015 9:19 AM DAIRY ASSOCIATE us Generic Conversion Md [facility] - GENERAL ORDERABLES Final Result [facility] [address] [place] [address], [place] [phone] * (ABNORMAL) URINALYSIS AUTO DIP (02/09/2015 8:04 AM DAIRY ASSOCIATE) SOURCE (FLUID) URINE CLEAN CATCH 02/09/2015 8:04 AM [facility] COLOR (U) YELLOW 02/09/2015 8:24 AM [facility] Comment: TESTING PERFORMED AT [facility] [address] [place] [id number] ELAN WADE M.D., SPUD DRILLER [place] 02/09/2015 8:24 AM [facility] SPECIFIC GRAVITY (U) 1.025 1.001 - 1.030 02/09/2015 8:24 AM [facility] U PH 5.5 5.0 - 9.0 02/09/2015 8:24 AM [facility] LEUKOCYTES (U) SMALL(A) NEGATIVE 02/09/2015 8:24 AM [facility] NITRITES NEGATIVE NEGATIVE 02/09/2015 8:24 AM [facility] PROTEIN (U) 30(H) <30 MG/DL 02/09/2015 8:24 AM [facility] URINE GLUCOSE NEGATIVE NEGATIVE MG/DL 02/09/2015 8:24 AM [facility] KETONES MG/DL (U) NEGATIVE NEGATIVE MG/DL 02/09/2015 8:24 AM [facility] UROBILINOGEN NEGATIVE NEGATIVE MG/DL 02/09/2015 8:24 AM [facility] BILIRUBIN (U) NEGATIVE NEGATIVE MG/DL 02/09/2015 8:24 AM [facility] BLOOD (U) NEGATIVE NEGATIVE 02/09/2015 8:24 AM DAIRY ASSOCIATE [facility] CULTURE & SENSITIVITY INDICATED? SPECIMEN SETUP FOR CULTURE 02/09/2015 8:24 AM DAIRY ASSOCIATE [facility] 02/09/2015 8:04 AM DAIRY ASSOCIATE 02/09/2015 8:07 AM DAIRY ASSOCIATE us Generic Conversion Md [facility] URINE ORDERABLES Final Result Performing Organization Address City/State/[facility] Co de Phone Number [facility] [address] [place] [address], [place] [phone] documented in this encounter Visit Diagnoses Diagnosis Abdominal pain Abdominal pain, unspecified site documented in this encounter Care Teams Sales Floor Manager Relationship Specialty Start Date End Date Kit Arriola MD [address] [address] PCP - General 02/09/15 04/04/15 Kit Arriola MD [address] [address] PCP - General 04/05/15 05/02/15 Kit Arriola MD [address] [address] PCP - General 05/03/15 11/30/15 Kit Arriola MD [address] [address] PCP - General 12/01/15 07/13/20 documented as of this encounter
--- OUTSIDE RECORDS SUMMARY | 2024-02-17 13:40 | XMS_ITS | Encounter Summary ---
Author Organization [facility] Address [address] [facility] [place] [address] [place] [address] Care Team Providers Care Revit Drafter Name Role Phone Md Generic Conversion Primary Care Provider Unavailable Md Generic Conversion Primary Care Provider Unavailable Md Generic Conversion Primary Care Provider Unavailable Kit Arriola MD Primary Care Provider [phone] Kit Arriola MD Primary Care Provider [phone] Kit Arriola MD Primary Care Provider [phone] Kit Arriola MD Primary Care Provider [phone] Kit Arriola MD Primary Care Provider [phone] Kit Arriola MD Primary Care Provider [phone] Encounter Details Date Type Department Care Team (Late st Contact Info) Description 05/31/[address] [facility] [address] [place], [place] [id number] Wilner Jackson, MANUELA [address] [facility] [address] [place], [place] [address] Social History Tobacco Use Types Packs/Day Years Used Date Smoking Tobacco: Never Assessed Comments Unknown Sex and Gender Information Value Date Recorded Sex Assigned at Not on file Legal Sex Female 8:13 PM CDT Gender Identity Not on file Sexual Orientation Not on file documented as of this encounter Plan of Treatment Not on file documented as of this encounter Visit Diagnoses Diagnosis state, incidental (HHS/HCC) state, incidental documented in this encounter Care Teams Revit Drafter Relationship Specialty Start Date End Date Luz Buchanan, PCP - General 05/31/14 Md Generic Conversion, PCP - General 06/01/14 Md Generic Conversion, PCP - General 07/13/14 Kit Arriola MD [address] [address] PCP - General 08/18/14 02/01/15 Kit Arriola MD [address] [address] PCP - General 02/02/15 02/08/15 Kit Arriola MD [address] [address] PCP - General 02/09/15 04/04/15 Kit Arriola MD [address] [address] PCP - General 04/05/15 05/02/15 Kit Arriola MD [address] [address] PCP - General 05/03/15 11/30/15 Kit Arriola MD [address] [address] PCP - General 12/01/15 07/13/20 documented as of this encounter
--- OUTSIDE RECORDS SUMMARY | 2024-02-17 13:40 | XMS_ITS | Encounter Summary ---
Author Organization [facility] Address [address] [facility] [place] [address] [place] [address] Care Team Providers Care Cost Accounting Analyst Name Role Phone Md Generic Conversion Primary Care Provider Unavailable Md Generic Conversion Primary Care Provider Unavailable Md Generic Conversion Primary Care Provider Unavailable Md Generic Conversion Primary Care Provider Unavailable Md Generic Conversion Primary Care Provider Unavailable Md Generic Conversion Primary Care Provider Unavailable Md Generic Conversion Primary Care Provider Unavailable Kit Arriola MD Primary Care Provider [phone] Kit Arriola MD Primary Care Provider [phone] Kit Arriola MD Primary Care Provider [phone] Kit Arriola MD Primary Care Provider [phone] Kit Arriola MD Primary Care Provider [phone] Kit Arriola MD Primary Care Provider [phone] Encounter Details Date Type Department Care Team (Late st Contact Info) Description 02/01/[address] [facility] [address] [place], [place] [address] Richi Rajan MD [address] [place] [address] Social History Tobacco Use Types Packs/Day [...] hemorrhage documented in this encounter Care Teams Cost Accounting Analyst Relationship Specialty Start Date End Date Md Generic Conversion, PCP - General 02/01/11 4 Md Generic Conversion, PCP - General 05/11/13 Md Generic Conversion, PCP - General 07/30/13 4 Md Generic Conversion, PCP - General 10/07/13 Md Generic Conversion, PCP - General 05/31/14 Md Generic Conversion, PCP - General 06/01/14 5 Md Generic Conversion, PCP - General 07/13/14 Kit Arriola MD [address] [address] PCP - General 08/18/14 02/01/15 Kit Arriola MD [address] [address] PCP - General 02/02/15 02/08/15 Kit Arriola MD [address] [address] PCP - General 02/09/15 04/04/15 Kit Arriola MD [address] [address] PCP - General 04/05/15 05/02/15 Kit Arriola MD [address] [facility] [address] [place] [address] PCP - General 05/03/15 11/30/15 Kit Arriola MD [address] [address] PCP - General 12/01/15 07/13/20 documented as of this encounter
--- OUTSIDE RECORDS SUMMARY | 2024-02-17 13:40 | XMS_ITS | Encounter Summary ---
Author Organization [facility] Address [address] [facility] [place] [address] [place] [address] Care Team Providers Care Land Surveyor Name Role Phone Md Generic Gardenia [facility] [...] Unavailable Kit Arriola MD Primary Care Provider [phone] Kit Arriola MD Primary Care Provider Kit Arriola MD Primary Care Provider [phone] Kit Arriola MD Primary Care Provider [phone] Kit Arriola MD Primary Care Provider [phone] Kit Arriola MD Primary Care Provider [phone] Encounter Details Date Type Department Care Team (Late st Contact Info) Description 07/27/[address] [facility] [address] [place] [address] Luz Oates MD Social History [...] on filedocumented in this encounter Care Teams Land Surveyor Relationship Specialty Start Date End Date Md [...] - General 07/13/14 Kit Arriola MD [address] [address] PCP - General 08/18/14 02/01/15 Kit Arriola MD [address] [address] PCP - General 02/02/15 02/08/15 Kit Arriola MD [address] [address] PCP - General 02/09/15 04/04/15 Kit Arriola MD [address] [address] PCP - General 04/05/15 05/02/15 Kit Arriola MD [address] [address] PCP - General 05/03/15 11/30/15 Kit Arriola MD [address] [address] PCP - General 12/01/15 07/13/20 documented as of this encounter
--- OUTSIDE RECORDS SUMMARY | 2024-02-17 13:40 | XMS_ITS | Encounter Summary ---
Author Organization [facility] Address [address] [facility] [place] [address] [place] [address] Care Team Providers Care Shafting Worker Name Role Phone Md Generic Conversion Primary [...] Unavailable Kit Arriola MD Primary Care Provider [phone] Kit Arriola MD Primary Care Provider [phone] Kit Arriola MD Primary Care Provider [phone] Kit Arriola MD Primary Care Provider [phone] Kit Arriola MD Primary Care Provider [phone] Kit Arriola MD Primary Care Provider [phone] Encounter Details Date Type Department Care Team (Late st Contact Info) Description 12/13/[address] [facility] [address] [place] [address] Ino Owusu MD Social History Tobacco Use Types Packs/Day [...] on filedocumented in this encounter Care Teams Shafting Worker Relationship Specialty Start Date End Date Md [...] General 07/13/14 Kit Arriola MD [address] [address] PCP - General 08/18/14 02/01/15 Kit Arriola MD [address] [address] PCP - General 02/02/15 02/08/15 Kit Arriola MD [address] [address] PCP - General 02/09/15 04/04/15 Kit Arriola MD [address] [address] PCP - General 04/05/15 05/02/15 Kit Arriola MD [address] [address] PCP - General 05/03/15 11/30/15 Kit Arriola MD [address] [address] PCP - General 12/01/15 07/13/20 documented as of this encounter
--- OUTSIDE RECORDS SUMMARY | 2024-02-17 13:53 | XMS_ITS | Encounter Summary ---
Author Organization [facility] Address [address] [place] [address] Phone Care Team Providers Care Manufacturing Plant Technician Name Role Phone Jessa Rose MD Primary Care Provide r Dae Kovacs DO Unavailable [phone] Encounter Details Date Type Department Care Team (Late st Contact Info) Description 10/12/2020 Telephone [facility] [address] [place] [address] Dae Kovacs, DO [address] [place] [address] Social History Tobacco Use Types Packs/Day Years Used Date Smoking Tobacco: Never Smokeless Tobacco: Never Alcohol Use Standard Drinks/Week Comments Not Currently 0 (1 standard drink = 0.6 oz pur e alcohol) PHQ-2 Answer Date Recorded Total Score - Questions 1-9 0 09/05 Sexually Active Control Partners Comments Yes None Male 1 at this time Comments Unknown Sex and Gender Information Value Date Recorded Sex Assigned at Not on file Legal Sex Female 1:57 PM TUB RIDER Gender Identity Not on file Sexual Orientation Not on file COVID-19 Exposure Response Date Recorded In the last month, have you been in contact with someone who was confirmed or suspected to have Coronavirus / COVID-19? No / Unsure 09/14/2020 10:41 AM CDT documented as of this encounter Miscellaneous Notes * Telephone Encounter - Laurie Gay - 10/12/2020 3:10 PM CDT LVM TO R/S documented in this encounter Plan of Treatment Not on file documented as of this encounter Visit Diagnoses Not on filedocumented in this encounter Additional Health Concerns Assessment Noted Time PHQ-9 Depression Total Score: 0 09/15/19 10:58 AM CDT documented as of this encounter Care Teams Manufacturing Plant Technician Relationship Specialty Start Date End Date Jessa Rose MD [address] [place] [address] PCP - General Obstetrics & Gynecology 08/24/20 Dae Kovacs DO [address] [place] [phone] Consulting Physician Oncology 08/24/20 documented as of this encounter
--- OUTSIDE RECORDS SUMMARY | 2024-02-17 13:53 | XMS_ITS | Encounter Summary ---
Author Organization [id number] Care Team Providers Care Equipment Operator/Laborer/Supervisor Name Role Phone Jessa Rose MD Primary Care Provide r Dae Kovacs DO Unavailable [phone] Encounter Details Date Type Department Care Team (Latest Contact Info) Description 08/31/2020 Travel Social History Tobacco Use Types Packs/Day Years Used Date Smoking Tobacco: Never Smokeless Tobacco: Never Alcohol Use Standard Drinks/Week Comments Not Currently 0 (1 standard drink = 0.6 oz pur e alcohol) PHQ-2 Answer Date Recorded Total Score - Questions 1-9 0 08/06 Sexually Active Control Partners Comments Yes None Male 1 at this time Comments Unknown Sex and Gender Information Value Date Recorded Sex Assigned at Not on file Legal Sex Female 1:57 PM KENO WRITER / RUNNER Gender Identity Not on file Sexual Orientation Not on file COVID-19 Exposure Response Date Recorded In the last month, have you been in contact with someone who was confirmed or suspected to have Coronavirus / COVID-19? No / Unsure 08/31/2020 10:09 AM CDT documented as of this encounter Plan of Treatment Not on file documented as of this encounter Visit Diagnoses Not on filedocumented in this encounter Additional Health Concerns Assessment Noted Time PHQ-9 Depression Total Score: 0 09/01/19 21 10:35 AM CDT documented as of this encounter Care Teams Equipment Operator/Laborer/Supervisor Relationship Specialty Start Date End Date Jessa Rose MD [address] [place] [address] PCP - General Obstetrics & Gynecology 08/24/20 Dae Kovacs DO [address] [place] [phone] Consulting Physician Oncology 08/24/20 documented as of this encounter
--- OUTSIDE RECORDS SUMMARY | 2024-02-17 13:53 | XMS_ITS | Encounter Summary ---
Author Organization [facility] Address [address] [address] Phone Care Team Providers Care Testing Analyst Name Role Phone Jessa Rose MD Primary Care Provide r Dae Kovacs DO Unavailable [phone] Reason for Referral * Radiology Services (Routine) - Closed Specialty Diagnoses / Procedures Referred By Kimberley barrios Referred To Contact Radiology Diagnoses Bilateral mastodynia Bloody discharge from nipple Procedures AMISH US BREAST COMPLETE RUPALI Dae Kovacs DO [address] [place] [address] Phone: tel: fax: Referral ID Status Reason Start Date Expiration Date Visits Re quested Visits Authorized [id number] Closed 09/17/2020 1 1 Encounter Details Date Type Department Care Team (Late st Contact Info) Description 09/17/2020 Telephone [facility] [address] [address] Dae Kovacs DO [address] [place] [address] Social History Tobacco Use Types [...] on file Legal Sex Female 1:57 PM UTILITY LINEMAN Gender Identity Not on file Sexual Orientation Not on file COVID-19 Exposure Response Date Recorded In the last month, have you been in contact with someone who was confirmed or suspected to have Coronavirus / COVID-19? No / Unsure 09/14/2020 10:41 AM CDT documented as of this encounter Miscellaneous Notes * Telephone Encounter - Arua Oseguera RMA - 09/17/2020 12:01 PM CDT Daksha jenkins [facility] called stating pt was at hospital for bilateral breast US. No order was placed. Order placed, auth'd and faxed. documented in this encounter Plan of Treatment Not on file documented as of this encounter Results * AMISH US BREAST COMPLETE RUPALI (09/20/2020) Anatomical Region Laterality Modality breast Bilateral Ultrasound us Dae Kovacs DO IMG MAMMO ORDERABLES Final Res ult documented in this encounter Visit Diagnoses Diagnosis Bilateral mastodynia- Primary Bloody discharge from nipple Other sign and symptom in breast documented in this encounter Additional Health Concerns Assessment Noted Time PHQ-9 Depression Total Score: 0 09/15/19 10:58 AM CDT documented as of this encounter Care Teams Testing Analyst Relationship Specialty Start Date End Date Jessa Rose MD [address] [place] [address] PCP - General Obstetrics & Gynecology 08/24/20 Dae Kovacs DO [address] [place] [phone] Consulting Physician Oncology 08/24/20 documented as of this encounter
--- OUTSIDE RECORDS SUMMARY | 2024-02-17 13:53 | XMS_ITS | Encounter Summary ---
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 Gender Identity Not on file Sexual Orientation Not on file documented as of this encounter Miscellaneous Notes * Telephone Encounter - Laurie Gay - 10/20/2020 9:39 AM CDT CALLED PT LVM TO R/S documented in this encounter Plan of Treatment Not on file documented as of this encounter Visit Diagnoses Not on filedocumented in this encounter Additional Health Concerns Assessment Noted Time PHQ-9 Depression Total Score: 0 09/15/19 10:58 AM CDT documented as of this encounter Care Teams Crawler Tractor Operator Relationship Specialty Start Date End Date Jessa Rose MD [address] [facility] [place] [address] PCP - General Obstetrics & Gynecology 08/24/20 Dae Kovacs DO [address] [place] [phone] Consulting Physician Oncology 08/24/20 documented as of this encounter
--- OUTSIDE RECORDS SUMMARY | 2024-02-17 13:53 | XMS_ITS | Encounter Summary ---
Author Organization [facility] Address [address] [place] [address] Care Team Providers Care Net Finisher Name Role Phone Unavailable Primary Care Provider Unavailabl e Encounter Details Date Type Department Care Team (Late st Contact Info) Description 01/08/2020 Lab Requisition 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
--- OUTSIDE RECORDS SUMMARY | 2024-02-17 13:53 | XMS_ITS | Encounter Summary ---
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
--- OUTSIDE RECORDS SUMMARY | 2024-02-17 13:53 | XMS_ITS | Encounter Summary ---
Author Organization [facility] Address [address] [place] [address] Care Team Providers Care Public Information Officer Name Role Phone Unavailable Primary Care Provider Unavailabl e Encounter Details Date Type Department Care Team (Late st Contact Info) Description 01/08/2020 2:00 PM TRUCK DRIVING Rapid Evaluation [facility] Public Health Community Testing [facility] [address] [place] [address] Social History Tobacco Use Types Packs/Day Years Used Date Smoking Tobacco: Never Assessed Comments Unknown Sex and Gender Information Value Date Recorded Sex Assigned at Not on file Legal 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
--- OUTSIDE RECORDS SUMMARY | 2024-02-17 13:53 | XMS_ITS | Encounter Summary ---
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
--- OUTSIDE RECORDS SUMMARY | 2024-02-17 13:53 | XMS_ITS | Encounter Summary ---
Author Organization [facility] Address [address] [address] Phone Care Team Providers Care Manager Market Development Name Role Phone Jessa Rose MD Primary Care Provide r Dae Kovacs DO Unavailable [phone] Reason for Visit * Reason Comments Follow-up Encounter Details Date Type Department Care Team (Late st Contact Info) Description 09/14/2020 10:45 AM CDT Office Visit [facility] [address] [place] [address] Dae Kovacs, DO [address] [place] [address] Bilateral mastodynia (Primary Dx) Social History Tobacco Use Types Packs/Day Years [...] on file 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 No / Unsure 09/14/2020 10:41 AM CDT documented as of this encounter Last Filed Vital Signs Vital Sign Reading Time Taken Comments Blood Pressure 114/76 09/14/2020 10:53 AM CDT Pulse 61 09/14/2020 10:53 AM CDT Temperature - - Respiratory Rate - - Oxygen Saturation 94% 09/14/2020 10:53 AM CDT Inhaled Oxygen Concentration - - Weight 74.9 kg (165 lb 3.2 oz) 09/14/2020 10:53 AM CDT Height 165.1 cm (5' 5 ) 09/14/2020 10:53 AM CDT Body Mass Index 27.49 09/14/2020 10:53 AM CDT documented in this encounter Progress Notes * Dae Kovacs DO - 09/14/2020 10:45 AM CDT Patient: Roxana Briseno Age: 30 y.o. : 1990 Encounter Dept: [facility] Encounter Date: 09/14/2020 Care Team: Current Providers PCP: Jessa Rose MD Care Team Provider: Dae Kovacs DO Encounter Provider: Dae Kovacs DO Referring Provider: not found Consulting Physician: Dae Kovacs DO PATIENT IDENTIFICATION: A very pleasant 30-year-old female. HISTORY OF PRESENT ILLNESS: Roxana is doing well. She continues to have mastodynia. Otherwise, no change in her condition. I have attempted to get cytology report from director of leadership development. Reportedly, no cytology was done. Patient has been referred to Surgery at [facility]. Patient has no new complaints at this time. DIAGNOSIS: 1. Mastodynia. 2. Bloody nipple discharge. 3. Family history of breast cancer. PAST TREATMENT: 1. Ultrasound of breasts negative. CURRENT TREATMENT: 1. Mammography. 2. Breast surgery evaluation. TREATMENT GUIDELINES: Not applicable. PROGNOSIS: Not applicable. EXPECTED RESPONSE TO TREATMENT: Not applicable. EXPECTED QUALITY OF LIFE DURING TREATMENT: Not applicable. ECO. PAIN: Not applicable. PLAN FOR PAIN: Not applicable. CODE STATUS: Full. END OF LIFE: Not applicable. ASSESSMENT: 1. Mastodynia. 2. Bloody nipple discharge. 3. Family history of breast cancer. PLAN: 1. Mammogram ordered and will be done this Sunday, the . 2. Patient will followup with Breast Surgery at [facility]. 3. Followup here in four weeks. 4. The patient will contact me in the interim with any problems. TIME SPENT: REVIEW OF SYSTEMS: A 12-point review of systems is negative except per HPI. PHYSICAL EXAM: GENERAL: Patient is awake, alert and oriented x3. HEENT: Normocephalic, atraumatic, PERRLA, EOMI. Sclerae nonicteric, conjunctivae normal. Nasopharynx negative. Tongue normal, uvula midline, no thrush, no mucosal lesions present. NECK: Supple. No cervical, supraclavicular, or axillary lymphadenopathy. Thyroid not palpable. LUNGS: Clear to auscultation and percussion in all lung mitchell, no focal wheezes, rales, or rhonchi. HEART: Regular rhythm and rate. Normal S1, S2, no S3, S4, no murmur, or rub. BREAST: The patient has discomfort on exam of bilateral breasts. No masses identified. The patient has fibro glandular disease of both sides. ABDOMEN: No hepatosplenomegaly, masses, ascites, areas of tenderness, bruits, or hernias. EXTREMITIES: No clubbing, cyanosis, or edema. LABORATORY/PATHOLOGY/IMAGING NOTES: 1. Ultrasound of breasts, bilaterally, negative. 2. Diagnostic mammogram pending bilaterally. Dae Kovacs, DO, FACOI/rmd Vitals: Vitals: 09/14/20 1053 BP: 114/76 BP Location: Left Arm BP Position: Sitting BP Cuff Size: Regular Pulse: 61 SpO2: 94% Weight: 165 lb 3.2 oz (74.9 kg) Height: 5' 5 (1.651 m) Body surface area is 1.85 meters squared. Body mass index is 27.49 kg/m??. Allergies: Allergies Allergen Reactions ??? Latex Hives Hives ??? Morphine Hives and Itching Itching ??? Vancomycin Hives Itching ??? Tramadol Itching PMH/SgH/FH/SH: Past medical, surgical, family and social histories were reviewed at this visit. Past Medical History Positives Diagnosis Date ??? COVID-19 12/2019 ??? PCOS (polycystic ovarian syndrome) Past Surgical History: Procedure Laterality Date ??? ECTOPIC SURGERY Right 06/2019 x2 ??? GALLBLADDER SURGERY Family History Problem Relation Age of Onset ??? Hypertension Father ??? Diabetes Father ??? Hypertension Mother ??? Cancer Paternal Aunt breast Family Status Relation Name Status ??? Father Alive ??? Mother Alive ??? PAunt Alive x 3 Social History Socioeconomic History ??? Marital status: Single Spouse name: Not on file ??? Number of children: Not on file ??? Years of education: Not on file ??? Highest education level: Not on file Tobacco Use ??? Smoking status: Never Smoker ??? Smokeless tobacco: Never Used Vaping Use ??? Vaping Use: Never used Substance and Sexual Activity ??? Alcohol use: Not Currently ??? Drug use: Never ??? Sexual activity: Yes Partners: Male control/protection: None Comment: 1 at this time Oncology History: Oncology History No history exists. Cancer Staging: Cancer Staging No matching staging information was found for the patient. Cumulative dose Purpose/Goal Comments Lifetime Dose Tracking No doses have been documented on this patient for the following tracked chemicals: Doxorubicin, Epirubicin, Idarubicin, Daunorubicin, Mitoxantrone, Bleomycin Current Medications: Outpatient Encounter Medications as of 09/14/2020 Medication Sig Dispense Refill ??? metFORMIN (GLUCOPHAGE-XR) 500 MG TABLET SR 24 HR Take 500 mg by mouth daily. This RX is for Metformin SR. (Patient not taking: Reported on 09/14/2020) ??? naproxen (NAPROSYN) 500 MG Tablet Take 500 mg by mouth. (Patient not taking: Reported on 08/31/2020) No facility-administered encounter medications on file as of 09/14/2020. Labs: No visits with results within 7 Day(s) from this visit. Latest known visit with results is: Lab Requisition on 01/08/2020 Component Date Value Ref Range Status ??? [facility] REDITUS SARS-COV-2 RNA 01/08/2020 NOT DETECTED Final documented in this encounter Plan of Treatment Not on file documented as of this encounter Visit Diagnoses Diagnosis Bilateral mastodynia- Primary documented in this encounter Additional Health Concerns Assessment Noted Time PHQ-9 Depression Total Score: 0 09/15/19 10:58 AM CDT documented as of this encounter Care Teams Manager Market Development Relationship Specialty Start Date End Date Jessa Rose MD [address] [place] [address] PCP - General Obstetrics & Gynecology 08/24/20 Dae Kovacs DO [address] [place] [address] Consulting Physician Oncology 08/24/20 documented as of this encounter
--- OUTSIDE RECORDS SUMMARY | 2024-02-17 13:53 | XMS_ITS | Encounter Summary ---
Author Organization [facility] Address [address] [place] [address] Phone Care Team Providers Care Director Product Name Role Phone Jessa Rose MD Primary Care Provide r Dae Kovacs DO Unavailable [phone] Reason for Referral * Consult, Test & Initiate Treatment (Routine) - Closed Specialty Diagnoses / Procedures Referred By Kimberley barrios Referred To Contact Diagnoses Bilateral mastodynia Bloody discharge from nipple Dae Kovacs DO [address] [place] [address] Phone: tel: fax: Wilner Gutierrez MD [address] [facility] [address] [facility] [address] [place] [address] Phone: tel: fax: Referral ID Status Reason Start Date Expiration Date Visits Re quested Visits Authorized [id number] Closed 08/31/[address] woodward for breast pain bilateral and blood nipple discharge * Radiology Services (Routine) - Closed Specialty Diagnoses / Procedures Referred By Kimberley barrios Referred To Contact Radiology Diagnoses Bilateral mastodynia Procedures AMISH DIAG BILATERAL DIGITAL W CAD Dae Kovacs DO [address] [place] [address] Phone: tel: fax: Provider, Not On File [place] Referral ID Status Reason Start Date Expiration Date Visits Re quested Visits Authorized [id number] Closed 08/31/2020 1 1 Reason for Visit * Reason Comments New Patient Encounter Details Date Type Department Care Team (Late st Contact Info) Description 08/31/2020 10:15 AM CDT Office Visit [facility] [address] [place] [address] Dae Kovacs DO [address] [place] [address] Bilateral mastodynia (Primary Dx); Bloody discharge from nipple Social History Tobacco Use Types Packs/Day Years [...] on file 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 No / Unsure 08/31/2020 10:09 AM CDT documented as of this encounter Last Filed Vital Signs Vital Sign Reading Time Taken Comments Blood Pressure 128/82 08/31/2020 10:19 AM CDT Pulse - - Temperature 36.7 ??C (98 ??F) 08/31/2020 10:19 AM CDT Respiratory Rate 18 08/31/2020 10:19 AM CDT Oxygen Saturation - - Inhaled Oxygen Concentration - - Weight 75.1 kg (165 lb 9.6 oz) 08/31/2020 10:19 AM CDT Height 165.1 cm (5' 5 ) 08/31/2020 10:19 AM CDT Body Mass Index 27.56 08/31/2020 10:19 AM CDT documented in this encounter Progress Notes * Dae Kovacs DO - 08/31/2020 10:15 AM CDT Patient: Roxana Briseno Age: 30 y.o. : 1990 Encounter Dept: [facility] Encounter Date: 08/31/2020 Care Team: Current Providers PCP: Jessa Rose MD Care Team Provider: Dae Kovacs DO Encounter Provider: Dae Kovacs DO Referring Provider: not found Consulting Physician: Dae Kovacs DO PATIENT IDENTIFICATION: A very pleasant 30-year-old female. HISTORY OF PRESENT ILLNESS: Roxana is a very pleasant woman who was referred here today for mastodynia and bloody nipple discharge. Additionally, the patient has reportedly had cytology checked whichshowed the patient had malignant cells in one of her breasts. She thinks the left. I have placed calls and there is no cytology available for evaluation. The patient states the pain has been going on for about two months??? time. She had an ultrasound of both breasts which was negative. Mammographywas not ordered. The patient has no history of breast cancer. She does have an extensive family history of breast cancer with her maternal grandmother and multiple maternal aunts having breast cancer. The patient is quite concerned due to bloody nipple discharge and the pain and is here for evaluation. DIAGNOSIS: 1. Mastodynia. 2. Bloody nipple discharge. [...] Family history of breast cancer. PLAN: 1. Refer the patient to Breast Surgery. 2. Bilateral mammography, diagnostic, ordered. 3. The patient is to follow up in two weeks??? time. 4. The patient is to contact me in the interim with any problems. 5. Obtain cytology from LICENSING ENGINEER office. TIME SPENT: REVIEW OF SYSTEMS: A 12-point [...] breasts. No masses identified. The patient has fibroglandular disease of both sides. ABDOMEN: No hepatosplenomegaly, masses, ascites, areas of tenderness, bruits, or hernias. EXTREMITIES: No clubbing, cyanosis, or edema. LABORATORY/PATHOLOGY/IMAGING NOTES: 1. Ultrasound of breasts, bilaterally, negative. 2. Diagnostic mammogram pending bilaterally. Dae Kovacs, DO, FACOI/mgo Vitals: Vitals: 08/31/20 1019 BP: 128/82 BP Location: Left Arm BP Position: Sitting BP Cuff Size: Regular Resp: 18 Temp: 98 ??F (36.7 ??C) TempSrc: Temporal Weight: 165 lb 9.6 oz (75.1 kg) Height: 5' 5 (1.651 m) Body surface area is 1.86 meters squared. Body mass index is 27.56 kg/m??. Allergies: Allergies Allergen Reactions ??? Latex [...] Current Medications: Outpatient Encounter Medications as of 08/31/2020 Medication Sig Dispense Refill ??? metFORMIN (GLUCOPHAGE-XR) 500 MG TABLET SR 24 HR Take 500 mg by mouth daily. This RX is for Metformin SR. ??? naproxen (NAPROSYN) 500 MG Tablet Take 500 mg by mouth. (Patient not taking: Reported on 08/31/2020) No facility-administered encounter medications on file as of 08/31/2020. Labs: No visits with results within 7 Day(s) from this visit. Latest known visit with results is: Lab Requisition on 01/08/2020 Component Date Value Ref Range Status ??? [facility] REDITUS SARS-COV-2 RNA 01/08/2020 NOT DETECTED Final documented in this encounter Plan of Treatment Scheduled Orders Name Type Priority Associated Diagnoses Orde r Schedule AMISH DIAG BILATERAL DIGITAL W CAD Imaging Routine Bilateral mastodynia Expected: 08/31/2020, Expires: 10/01/2020 Scheduled Referrals Name Type Priority Associated Diagnoses Orde r Schedule EXTERNAL GEN SURGICAL REFERRAL HST Outpatient Referral Routine Bilateral mastodynia Bloody discharge from nipple Expected: 08/31/2020, Expires: 10/01/2020 documented as of this encounter Visit Diagnoses Diagnosis Bilateral mastodynia- Primary Bloody discharge from nipple Other sign and symptom in breast documented in this encounter Additional Health Concerns Assessment Noted Time PHQ-9 Depression Total Score: 0 09/01/19 10:35 AM CDT documented as of this encounter Care Teams Director Product Relationship Specialty Start Date End Date Jessa Rose MD [address] [place] [address] PCP - General Obstetrics & Gynecology 08/24/20 Dae Kovacs DO [address] [place] [address] Consulting Physician Oncology 08/24/20 documented as of this encounter
--- OUTSIDE RECORDS SUMMARY | 2024-02-17 13:53 | XMS_ITS | Encounter Summary ---
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 Gender Identity Not on file Sexual Orientation [...] Diagnosis Comments SARS-COV-2 PCR [facility] ONLY Routine 10/02/2020 3:20 PM CDT documented in this encounter Visit Diagnoses Not on filedocumented in this encounter Additional Health Concerns Assessment Noted Time PHQ-9 Depression Total Score: 0 09/15/19 10:58 AM CDT documented as of this encounter Care Teams Landscape Laborer Relationship Specialty Start Date End Date Jessa Rose MD [address] [place] [address] PCP - General Obstetrics & Gynecology 08/24/20 Dae Kovacs DO [address] [place] [address] Consulting Physician Oncology 08/24/20 documented as of this encounter
--- OUTSIDE RECORDS SUMMARY | 2024-02-17 13:53 | XMS_ITS | Encounter Summary ---
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 No / Unsure 09/14/2020 10:41 AM CDT documented as of this encounter Miscellaneous Notes * Telephone Encounter - Janice Salvador - 12/07/2020 2:12 PM CDT DISREGARD-ERROR documented in this encounter Plan of Treatment Not on file documented as of this encounter Visit Diagnoses Not on filedocumented in this encounter Additional Health Concerns Assessment Noted Time PHQ-9 Depression Total Score: 0 09/01/19 10:35 AM CDT documented as of this encounter Care Teams Human Resources Manager Manufacturing Relationship Specialty Start Date End Date Jessa Rose MD [address] [place] [address] PCP - General Obstetrics & Gynecology 08/24/20 Dae Kovacs DO [address] [place] [id number] Consulting Physician Oncology 08/24/20 documented as of this encounter
--- OUTSIDE RECORDS SUMMARY | 2024-02-17 13:53 | XMS_ITS | Clinical Summary ---
Author Organization [facility] Address [address] [place] [address] Care Team Providers Care Supervisor Forming Department Name Role Phone Jessa Rose MD Primary Care Provide r Dae Kovacs DO Unavailable [phone] Allergies Active Allergy Reactions Criticality Noted Date Comments Latex Hives Medium 11/28/2017 Hives Morphine Hives,Itching Medium 02/07/2017 Itching Tramadol Itching Low 07/19/2020 Vancomycin Hives Medium 04/16/2020 Itching Medications naproxen (NAPROSYN) 500 MG Tablet Take 500 mg by mouth. Active metFORMIN (GLUCOPHAGE-XR) 500 MG TABLET SR 24 HR Take 500 mg by mouth daily. This RX is for Metformin SR. 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 Gender Identity Not on file Sexual Orientation Not on file Last Filed Vital Signs Vital Sign Reading Time Taken Comments Blood Pressure 114/76 09/14/2020 10:53 AM CDT Pulse 61 09/14/2020 10:53 AM CDT Temperature 36.7 ??C (98 ??F) 08/31/2020 10:19 AM CDT Respiratory Rate 18 08/31/2020 10:19 AM CDT Oxygen Saturation 94% 09/14/2020 10:53 AM CDT Inhaled Oxygen Concentration - - Weight 74.9 kg (165 lb 3.2 oz) 09/14/2020 10:53 AM CDT Height 165.1 cm (5' 5 ) 09/14/2020 10:53 AM CDT Body Mass Index 27.49 09/14/2020 10:53 AM CDT Plan of Treatment Health Maintenance Due Date Last Done Comments Hepatitis C Virus (HCV) Screening 1992 TdaP Immunization 1992 Hepatitis B Immunization (1 of 3 - 19+ 3-dose series) 02/26/2011 Pap Smear 02/26/2013 Cervical Cancer Screening (CCS) 02/26/2022 HPV/Cotest 02/26/2022 Influenza Immunization (#1) 2023 SARS-COV-2 Immunization ( season) 2023 03/01/2020, 02/09/2020 Respiratory Syncytial Virus (RSV) Immunization (Adult) (1 - 1-dose 75+ series) 02/26/2067 Meningococcal Immunization (ACWY) Aged Out No longer eligible b ased on patient's age to complete this topic Pneumococcal Immunization Combined Aged Out No longer eligible b ased on patient's age to complete this topic Rotavirus Immunization Aged Out No lo nger eligible based on patient's age to complete this topic Insurance [place] [id number] Care Teams Supervisor Forming Department Relationship Specialty Start Date End Date Jessa Rose MD [address] [place] [address] PCP - General Obstetrics & Gynecology 08/24/20 Dae Kovacs DO [address] [place] [id number] Consulting Physician Oncology 08/24/20
--- OUTSIDE RECORDS SUMMARY | 2024-02-17 13:54 | XMS_ITS | Encounter Summary ---
Author Organization [facility] Healthcare Address [address] [place] [address] Care Team Providers Care Composite Engineer Name Role Phone Kit Arriola MD Primary Care Provider [phone] Encounter Details Date Type Department Care Team (Late st Contact Info) Description 10/13/2023 Patient Self-Triage [facility] HealthCare/ Physicians [address] [place] [address] Mychart, [facility] Provider [address] [place], [place] [id number] Social History Tobacco Use Types Packs/Day Years Used Date Smoking Tobacco: Never Smokeless Tobacco: Never Social Connection and Isolat ion Panel [NHANES] Answer Date Recorded In a typical week, how many times do you talk on the phone with family, friends, or neighbors? More than three times a week 05/18/2022 How often do you get togethe r with friends or relatives? More than three times a week 05/18/2022 How often do you attend chur ch or worship services? Never 05/18/2022 Do you belong to any clubs o r organizations such as mandaeism groups, unions, fraternal or athletic groups, or school groups? No 05/18/2022 How often do you attend meet ings of the clubs or organizations you belong to? Never 05/18/2022 Are you , , di vorced, , never , or living with a partner? 05/18/2022 AUDIT-C Answer Date Recorded Q1: How often do you have a drink containing alcohol? Never 05/14/2022 Q2: How many drinks containi ng alcohol do you have on a typical day when you are drinking? Patient does not drink Q3: How often do you have si x or more drinks on one occasion? Never 05/14/2022 Overall Financial Resource Strain (CARDIA) Answe r Date Recorded How hard is it for you to pa y for the very basics like food, housing, medical care, and heating? Not hard at all 05/18/2022 Hunger Vital Sign Answer Date Recorded Within the past 12 months, y ou worried that your food would run out before you got the money to buy more. Never true 05/19/19 23 Within the past 12 months, t he food you bought just didn't last and you didn't have money to get more. Never true 05/18/2022 PRAPARE - Transportation Answer Date Re corded In the past 12 months, has l ack of transportation kept you from medical appointments or from getting medications? No 05/06 In the past 12 months, has l ack of transportation kept you from meetings, work, or from getting things needed for daily living? No 05/18/2022 Housing Stability Vital Sign Answer Matteo e Recorded In the last 12 months, was t here a time when you were not able to pay the mortgage or rent on time? No 05/18/2022 In the last 12 months, how many places have you lived? 1 05/18/2022 In the last 12 months, was t here a time when you did not have a steady place to sleep or slept in a halfway (including now)? No 05/18/2022 [place] Depression Scale Answer Date Recorded [place] Depression Scale Total 0 06/26/2022 The thought of harming myself has occurred to me . Never 06/26/2022 Personal Safety Answer Date Recorded Have you ever been in or are you currently in a harmful physical or emotional relationship or is someone making you feel afraid or unsafe? 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
--- OUTSIDE RECORDS SUMMARY | 2024-02-17 13:54 | XMS_ITS | Encounter Summary ---
Author Organization [facility] Healthcare Address [address] [place] [address] Care Team Providers Care Fuel Cell Test Engineer Name Role Phone Kit Arriola MD Primary Care Provider [phone] Reason for Visit * Reason Comments Vaginal Discharge Entered automaticall y based on patient selection in [employer]. Encounter Details Date Type Department Care Team (Late st Contact Info) Description 10/29/2023 12:35 PM CDT E-Visit [facility] Virtual Care [address] [place] [address] Alexia Ramsey NP [address] [place] [address] E-Visit for Vaginal Discharge / Irritation Social History Tobacco Use Types Packs/Day Years [...] often do you attend chur ch or rastafarian services? Never 05/18/2022 Do you belong to any clubs o r organizations such as worship groups, unions, fraternal or athletic groups, or [...] place to sleep or slept in a fdc (including now)? 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 Subjective/Objective: Roxana A Finn contacted the office today via e-visit for Vaginal discharge/irritation. The patient-submitted questionnaire was assessed for pertinent information and the patient's problem list, medication list, and allergies were reviewed as part of the e-visit. The chart was updated to identify any changes in these areas. Assessment: No diagnosis found. Plan: Patient Instructions were included in the message reply to patient. My total encounter time on 10/29/2023 was 2 minutes which was spent in the activities documented inthe note. Alexia Ramsey NP documented in this encounter Plan of Treatment Not on file documented as of this encounter Visit Diagnoses Not on filedocumented in this encounter Care Teams Fuel Cell Test Engineer Relationship Specialty Start Date End Date Kit Arriola MD [address] [address] PCP - General Emergency Medicine 12/19/18 documented as of this encounter
--- OUTSIDE RECORDS SUMMARY | 2024-02-17 13:54 | XMS_ITS | Encounter Summary ---
Author Organization [facility] Healthcare Address [address] [place] [address] Care Team Providers Care Back Feeder Plywood Layup Line Name Role Phone Kit Arriola MD Primary Care Provider [phone] Encounter Details Date Type Department Care Team (Late st Contact Info) Description 09/05/2023 Patient Self-Triage [facility] HealthCare/ Physicians [address] [place] [address] Mychart, [facility] [place] [facility] Provider [address] [place], [place] [phone] Social History Tobacco Use Types Packs/Day Years [...] often do you attend chur ch or church services? Never 05/18/2022 Do you belong to any clubs o r organizations such as baptist groups, unions, fraternal or athletic groups, or [...] place to sleep or slept in a nursing home (including now)? 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
--- OUTSIDE RECORDS SUMMARY | 2024-02-17 13:54 | XMS_ITS | Encounter Summary ---
Author Organization [facility] Healthcare Address [address] [place] [address] Care Team Providers Care Production Roustabout Name Role Phone Kit Arriola MD Primary Care Provider [phone] Encounter Details Date Type Department Care Team (Late st Contact Info) Description 07/16/2023 Patient Self-Triage [facility] HealthCare/ Physicians [address] [place] [address] Mychart, [facility] Provider [address] [place], [place] [id number] Social History Tobacco Use Types Packs/Day Years [...] any clubs o r organizations such as lutheran groups, unions, fraternal or athletic groups, or [...] place to sleep or slept in a fci (including now)? 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
--- OUTSIDE RECORDS SUMMARY | 2024-02-17 13:54 | XMS_ITS | Encounter Summary ---
Author Organization [facility] Healthcare Address [address] [place] [address] Care Team Providers Care Sealing And Canceling Machine Operator Name Role Phone Kit Arriola MD Primary Care Provider [phone] Encounter Details Date Type Department Care Team (Late st Contact Info) Description 05/04/2023 Patient Self-Triage [facility] HealthCare/ Physicians [address] [place] [address] Mychart, [facility] Provider [address] [place], [place] [phone] Social History Tobacco Use Types Packs/Day Years [...] often do you attend chur ch or yazidi services? Never 05/18/2022 Do you belong to any clubs o r organizations such as tenriism groups, unions, fraternal or athletic groups, or [...] place to sleep or slept in a senior living (including now)? 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
--- OUTSIDE RECORDS SUMMARY | 2024-02-17 13:54 | XMS_ITS | Encounter Summary ---
Author Organization [facility] Healthcare Address [address] [place] [address] Care Team Providers Care Commercial Teller Name Role Phone Kit Arriola MD Primary Care Provider [phone] Reason for Visit * Reason Comments Headache Entered automaticall y based on patient selection in [employer]. Encounter Details Date Type Department Care Team (Late st Contact Info) Description 09/05/2023 6:00 AM CDT E-Visit [facility] Virtual Care [address] [place] [address] Christina Newberry, NUCLEAR MEDICAL TECH [address] [place] [address] Virtual Care Visit Social History Tobacco Use Types Packs/Day Years [...] often do you attend chur ch or baptism services? Never 05/18/2022 Do you belong to any clubs o r organizations such as cheondoism groups, unions, fraternal or athletic groups, or [...] place to sleep or slept in a correction (including now)? 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 The patient-submitted questionnaire was assessed for pertinent information and the patient's problem list, medication list, and allergies were reviewed as part of the e-visit. The chart was updated to identify any changes in these areas. Reports intermittent MIRAMONTES for a few months, 11/14. Also reports fever and weakness. States, I've had this same headache for three days and it makes me feel nauseous and dizzy when sitting up for long time.I've been having extreme back pain and pain in my knees as well Assessment: Diagnosis Plan 1. Acute intractable headache, unspecified headache type 2. Fever, unspecified fever cause 3. Weakness 4. Acute low back pain, unspecified back pain laterality, unspecified whether sciatica present 5. Knee pain, unspecified chronicity, unspecified laterality Plan: Due to number of complaints and severity of sxs. She is advised to either be seen in person or schedule a virtual visit as this is not appropriate for an e- visit. E-visit canceled. No charges. Patient Instructions were included in the message reply to patient. My total encounter time on 09/05/2023 was 5 minutes which was spent in the activities documented inthe note. Christina Newberry NP documented in this encounter Plan of Treatment Not on file documented as of this encounter Visit Diagnoses Diagnosis Acute intractable headache, unspecified headache type- Primary Fever, unspecified fever cause Weakness Other malaise and fatigue Acute low back pain, unspecified back pain laterality, unspecified whether sciatica present Knee pain, unspecified chronicity, unspecified laterality documented in this encounter Care Teams Commercial Teller Relationship Specialty Start Date End Date Kit Arriola MD [address] [address] PCP - General Emergency Medicine 12/19/18 documented as of this encounter
--- OUTSIDE RECORDS SUMMARY | 2024-02-17 13:54 | XMS_ITS | Encounter Summary ---
Author Organization [facility] Healthcare Address [address] [place] [address] Care Team Providers Care Plush Dresser Name Role Phone Kit Arriola MD Primary Care Provider [phone] Encounter Details Date Type Department Care Team (Late st Contact Info) Description 07/16/2023 Patient Self-Triage [facility] HealthCare/ Physicians [address] [place] [address] Mychart, [facility] Provider [address] [place], [place] [phone] Social History Tobacco Use Types Packs/Day Years [...] often do you attend chur ch or uatsdin services? Never 05/18/2022 Do you belong to any clubs o r organizations such as scientology groups, unions, fraternal or athletic groups, or [...] in a correction (including now)? 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
--- OUTSIDE RECORDS SUMMARY | 2024-02-17 13:54 | XMS_ITS | Encounter Summary ---
Author Organization [facility] Healthcare Address [address] [place] [address] Care Team Providers Care Ctrs Name Role Phone Kit Arriola MD Primary Care Provider [phone] Reason for Visit * Reason Comments COVID-19 EVALUATION Entered automaticall y based on patient selection in TVTY. Encounter Details Date Type Department Care Team (Late st Contact Info) Description 10/13/2023 1:00 PM CDT E-Visit [facility] Virtual Care [address] [place] [phone] Jessica Mcgarry MD [address] [place] [address] [address] [place] [address] E-Visit for COVID Concern Social History Tobacco Use Types Packs/Day Years [...] often do you attend chur ch or faith services? Never 05/18/2022 Do you belong to any clubs o r organizations such as evangelical groups, unions, fraternal or athletic groups, or [...] place to sleep or slept in a assisted (including now)? 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 30 tablet 10/13/2023 4 documented in this encounter Miscellaneous Notes * E-Visit Note - Jessica Mcgarry MD - 10/13/2023 1:00 PM CDT Roxana Briseno 10/13/2023 E-Visit Submission Subjective/Objective: Roxana Briseno contacted the office today via e-visit for COVID-19 evaluation. C/o cough, sore throat, sore muscles, diarrhea, fever, loss of smell, MIRAMONTES, ear pain, neck pain that started today. Took home COVID test and it was positive. High risk: asthma eGFR >90 The patient-submitted questionnaire was assessed for pertinent information and the patient's problem list, medication list, and allergies were reviewed as part of the e-visit. The chart was updated to identify any changes in these areas. Assessment: Diagnosis Plan 1. COVID-19 2. Acute cough 3. Acute pharyngitis due to other specified organisms 4. Musculoskeletal pain 5. Diarrhea, unspecified type 6. Headache syndrome 7. Loss of smell Plan: Pt does qualify for antivirals based on time <6 days from the start of symptoms, having at least1 high risk condition and most recent labs showed normal eGFR and LFT's. Paxlovid erx'ed to pharmacy. Instructed on use and possible side effects of the medicine. Patient is to self isolate for untilpatient has had symptoms for at least 5 days and has been fever free for 24 hours without taking medicine to reduce the fever and improving symptoms. Hand hygiene encouraged. Encouraged pt to treat symptoms as directed as needed and encourage oral fluid intake. Discussed with patient to present to ED for increasing difficulty with breathing, shortness of breath, chest pain, dizziness, intractablenausea, vomiting or diarrhea. Follow up with PCP. The patient was given information regarding any new medication(s) prescribed, if applicable, as well as any [id number] remedies. She was given instructions regarding follow up and timeframe if symptoms worsen or don???t improve. These instructions were included in the TVTY message reply tothe patient. Patient Instructions were included in the message reply to patient. My total encounter time on 10/13/2023 was 5 minutes which was spent in the activities documented inthe note. New Medications Ordered This Visit nirmatrelvir 300 mg-ritonavir 100 mg (PAXLOVID 300mg-100 mg) tablets,dose pack tablets in a dose pack Sig: Take 300 mg nirmatrelvir (2 x 150 mg tablets) with 100 mg ritonavir (1 x 100 mg tablet) with all three tablets taken together by mouth twice daily for 5 days. Dispense: 30 tablet Refill: 0 Jessica Mcgarry MD documented in this encounter Plan of Treatment Not on file documented as of this encounter Visit Diagnoses Diagnosis COVID-19- Primary Acute cough Acute pharyngitis due to other specified organisms Musculoskeletal pain Unspecified myalgia and myositis Diarrhea, unspecified type Headache syndrome Loss of smell Disturbances of sensation of smell and taste documented in this encounter Discontinued Medications Medication Sig Discontinue Reason Start Date End Da te nirmatrelvir 300 mg-ritonavir 100 mg (Paxlovid) tablets,dose pack tablets in a dose pack Take 300 mg nirmatrelvir (2 x 150 mg tablets) with 100 mg ritonavir (1 x 100 mg tablet) with all three tablets taken together by mouth twice daily for 5 days Therapy completed 02/19/2023 10/13/2023 documented as of this encounter Care Teams Ctrs Relationship Specialty Start Date End Date Kit Arriola MD [address] [place] [id number] PCP - General Emergency Medicine 12/19/18 documented as of this encounter
--- OUTSIDE RECORDS SUMMARY | 2024-02-17 13:54 | XMS_ITS | Encounter Summary ---
Author Organization [facility] Healthcare Address [address] [place] [address] Care Team Providers Care Child Care Sitter Name Role Phone Kit Arriola MD Primary Care Provider [phone] Encounter Details Date Type Department Care Team (Late st Contact Info) Description 10/29/2023 Patient Self-Triage [facility] HealthCare/ Physicians [address] [place] [address] Mychart, [facility] Provider [address] [place], [place] [id number] Social History Tobacco Use Types Packs/Day Years [...] often do you attend chur ch or spiritism services? Never 05/18/2022 Do you belong to any clubs o r organizations such as holiness groups, unions, fraternal or athletic groups, or [...] place to sleep or slept in a mcc (including now)? 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
--- OUTSIDE RECORDS SUMMARY | 2024-02-17 13:54 | XMS_ITS | Encounter Summary ---
Author Organization [facility] Healthcare Address [address] [place] [address] Care Team Providers Care Elevated Work Platform Operator Name Role Phone Kit Arriola MD Primary Care Provider [phone] Encounter Details Date Type Department Care Team (Late st Contact Info) Description 09/07/2023 Patient Self-Triage [facility] HealthCare/ Physicians [address] [place] [address] Mychart, [facility] Provider [address] [place], [place] [phone] Social History Tobacco Use Types Packs/Day Years [...] often do you attend chur ch or buddhist services? Never 05/18/2022 Do you belong to any clubs o r organizations such as baptism groups, unions, fraternal or athletic groups, or [...] place to sleep or slept in a longterm (including now)? 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
--- OUTSIDE RECORDS SUMMARY | 2024-02-17 13:54 | XMS_ITS | Encounter Summary ---
Author Organization [facility] Address [address] [place] [address] Care Team Providers Care Hand Plug Shaper Name Role Phone Kit Arriola MD Primary Care Provider [phone] Encounter Details Date Type Department Care Team (Late st Contact Info) Description 05/08/2023 Patient Self-Triage [facility]/ Physicians [address] [place] [address] Mychart, [facility] Provider [address] [place], [place] [phone] Social History Tobacco Use Types Packs/Day Years [...] often do you attend chur ch or scientology services? Never 05/18/2022 Do you belong to any clubs o r organizations such as restorationism groups, unions, fraternal or athletic groups, or [...] place to sleep or slept in a jail (including now)? 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
--- OUTSIDE RECORDS SUMMARY | 2024-02-17 13:54 | XMS_ITS | Encounter Summary ---
Author Organization [facility] Healthcare Address [address] [place] [address] Care Team Providers Care Grain Broker Name Role Phone Kit Arriola MD Primary Care Provider [phone] Reason for Visit * Reason Comments Sinus Problem Entered automaticall y based on patient selection in [employer]. Encounter Details Date Type Department Care Team (Late st Contact Info) Description 09/07/2023 8:25 AM CDT E-Visit [facility] Virtual Care [address] [place] [phone] Jessica Mcgarry MD [address] [place] [address] [address] [place] [address] E-Visit for Sinus Social History Tobacco Use Types Packs/Day Years [...] often do you attend chur ch or zoroastrianism services? Never 05/18/2022 Do you belong to any clubs o r organizations such as amish groups, unions, fraternal or athletic groups, or [...] place to sleep or slept in a intermediate (including now)? 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 C/o few days h/o nasal congestion, sore throat, cough, sneezing. States she's blowing out mostly clear mucus. Denies fevers. States she's confident she's not . The patient-submitted questionnaire was assessed for pertinent information and the patient's problem list, medication list, and allergies were reviewed as part of the e-visit. The chart was updated to identify any changes in these areas. Assessment: Diagnosis Plan 1. Acute non-recurrent sinusitis, unspecified location Plan: Likely viral at this point. Medrol Dose Pasquale erx'ed to pharmacy. Encourage patient to take a total of 3 home COVID tests by 24 hours each over the next 5 days as recommended by the CDC to confirm these symptoms are not COVID related. If any problems or questions or no improvement of symptoms in the next few days, please f/u w/ PCP. If symptoms worsen, go to the ED. The patient was given information regarding any new medication(s) prescribed, if applicable, as well as any [id number] remedies. She was given instructions regarding follow up and timeframe if symptoms worsen or don???t improve. These instructions were included in the [employer] message reply tothe patient. Patient Instructions were included in the message reply to patient. My total encounter time on 09/07/2023 was 5 minutes which was spent in the activities documented inthe note. New Medications Ordered This Visit methylPREDNISolone (MEDROL DOSEPACK) 4 mg Dosepack Sig: Take as directed on package Dispense: 1 packet Refill: 0 Jessica Mcgarry MD documented in this encounter Plan of Treatment Not on file documented as of this encounter Visit Diagnoses Diagnosis Acute non-recurrent sinusitis, unspecified location- Primary documented in this encounter Care Teams Grain Broker Relationship Specialty Start Date End Date Kit Arriola MD [address] [address] PCP - General Emergency Medicine 12/19/18 documented as of this encounter
--- OUTSIDE RECORDS SUMMARY | 2024-02-17 13:54 | XMS_ITS | Encounter Summary ---
Author Organization [facility] Healthcare Address [address] [place] [address] Care Team Providers Care Sales Consultant Residential Manager Name Role Phone Kit Arriola MD Primary Care Provider [phone] Reason for Visit * Reason Comments Vaginal Bleeding Encounter Details Date Type Department Care Team (Late st Contact Info) Description 12/08/2023 8:45 AM CDT Telemedicine [facility] Medical Group Virtual Care [address] [place] [address] Alexia Ramsey NP [address] [facility] [address] [place] [address] Vaginal bleeding in (Primary Dx) Social History Tobacco Use Types [...] often do you attend chur ch or zoroastrian services? Never 05/18/2022 Do you belong to any clubs o r organizations such as hindu groups, unions, fraternal or athletic groups, or [...] place to sleep or slept in a fpc (including now)? 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 documented in this encounter Progress Notes * Alexia Ramsey NP - 12/08/2023 8:45 AM CDT Images from the original note were not included. [facility] Virtual Care On-Demand Video Visit This was a telemedicine visit with Roxana Briseno alone which took place via real-time video connection with [facility] in the [facility]. During the visit, I was located at home and the patient was located at home in the [facility]. The patient visit started at 0830 and ended at 0837. My total encounter time on 12/08/2023 was 12 minutes which was spent in the activities documented in [employer]. This includes time spent prior to the visit and after the visit in direct care of the patient. This time does not include time spent in any separately reportable services.. The patient has been informed that the visit may not be secure and acknowledged the information. I have explained the option of participating in a telephone or video visit during the COVID-19 public health emergency to the patient. After being given an opportunity to ask questions about and discuss this type of visit, the patient verbally consented to proceeding with the telephone/video visit.The patient understands that this service replaces an office visit and they may be billed and/or responsible for any applicable copayments. Subjective/Objective Patient ID: Roxana Briseno is a 33 y.o. female. Chief Complaint Chief Complaint Patient presents with Vaginal Bleeding HPI Presents via video visit with c/o vaginal bleeding. Reports positive test at home and UC 3 weeks ago. Noticed bright red bleeding soaking one pad every 2 hours since yesterday. Denies passing blood clots. Reports having localized left sided pelvic pain. 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 States that she was turned away from a smaller ED near her home today because she did not have childcare for her 1 year old. Vaginal Bleeding The patient's primary symptoms include missed menses, pelvic pain and vaginal bleeding. The patient's pertinent negatives include no genital itching, genital lesions, genital odor, genital rash or vaginal discharge. This is a new problem. The current episode started yesterday. The problem occurs constantly. The problem has been unchanged. The pain is moderate. The problem affects the left side. She is . Pertinent negatives include no abdominal pain, nausea or vomiting. The vaginal discharge was bloody. The vaginal bleeding is heavier than menses. She has not been passing clots. She has not been passing tissue. Nothing aggravates the symptoms. She has tried nothing for the symptoms. Her past medical history is significant for an ectopic . Past Medical History: Diagnosis Date History of ectopic Past Surgical History: Procedure Laterality Date SECTION 05/15/2022 ECTOPIC SURGERY US ABDOMEN COMPLETE W LIVER DOPPLER (C) Right 11/12/2017 US ABDOMEN COMPLETE W LIVER DOPPLER (C) Right 11/13/2017 HOME MEDICATIONS : albuterol HFA (PROVENTIL HFA,VENTOLIN HFA,PROAIR HFA) 90 mcg/actuation inhaler benzonatate (TESSALON) 200 mg capsule cyclobenzaprine (FLEXERIL) 5 mg tablet metFORMIN (GLUCOPHAGE) 500 mg tablet naproxen (NAPROSYN) 500 mg tablet norethindrone-ethinyl estradiol-iron (Loestrin Fe 1.5, 28-Day,) 1.5 mg-30 mcg per tablet ondansetron (ZOFRAN) 4 mg tablet prochlorperazine (Compazine) 10 mg tablet Allergies Allergen Reactions Bactrim [Sulfamethoxazole-Trimethoprim] Hives Latex Hives Hives Morphine Hives and Itching Itching Vancomycin Hives Itching Tramadol Itching Review of Systems Constitutional: Negative for fatigue. Respiratory: Negative for shortness of breath. Cardiovascular: Negative for chest pain and palpitations. Gastrointestinal: Negative for abdominal pain, nausea and vomiting. Genitourinary: Positive for missed menses, pelvic pain and vaginal bleeding. Negative for vaginal discharge. Neurological: Negative for dizziness, weakness and light-headedness. There were no vitals taken for this visit. Physical Exam Constitutional: General: She is not in acute distress. Appearance: She is not ill-appearing or toxic-appearing. Pulmonary: Effort: Pulmonary effort is normal. No respiratory distress. Comments: Able to speak in full complete sentences. No audible wheezing noted. No cough noted. Neurological: Mental Status: She is alert and oriented to person, place, and time. Exam limited d/t nature of visit. Diagnoses and all orders for this visit: Vaginal bleeding in (Primary) Advised that she needs to be seen in person with new vaginal bleeding in : discussed danger of ectopic . Recommended going to a bigger ED now such as [facility] or [facility] or visiting [facility] [place] or calling her COMBINATION MACHINE TOOL OPERATOR after hours # now for guidance. She verbalized understanding and agreed. Work letter sent for today. Alexia Ramsey DNP, CRM SOLUTION ARCHITECT, ABRASIVE MIXER-C documented in this encounter Plan of Treatment Not on file documented as of this encounter Visit Diagnoses Diagnosis Vaginal bleeding in - Primary documented in this encounter Care Teams Sales Consultant Residential Manager Relationship Specialty Start Date End Date Kit Arriola MD [address] [address] PCP - General Emergency Medicine 12/19/18 documented as of this encounter
--- OUTSIDE RECORDS SUMMARY | 2024-02-17 13:54 | XMS_ITS | Encounter Summary ---
Author Organization [facility] Healthcare Address [address] [place] [address] Care Team Providers Care Padding Gluer Name Role Phone Kit Arriola MD Primary Care Provider [phone] Encounter Details Date Type Department Care Team (Late st Contact Info) Description 12/21/2023 Patient Self-Triage [facility] HealthCare/ Physicians [address] [place] [address] Mychart, [facility] Provider [address] [place], [place] [phone] Social History Tobacco Use Types Packs/Day Years [...] often do you attend chur ch or mosque services? Never 05/18/2022 Do you belong to any clubs o r organizations such as confucianist groups, unions, fraternal or athletic groups, or [...] place to sleep or slept in a m[facility] (including now)? 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
--- OUTSIDE RECORDS SUMMARY | 2024-02-17 13:54 | XMS_ITS | Referral Summary ---
Author Organization [facility] Medical [facility] 1 Address [address] [place] [address] Care Team Providers Care Office Copy Selector Name Role Phone Kit Arriola MD Primary Care Provider Encounters Date Type Department Care Team Description 12/21/2023 Patient Self-Triage [facility] HealthCare/ Physicians [address] [place] [phone] Mychart, Generic Provider 12/08/2023 8:45 AM CDT Telemedicine [facility] Medical Group Virtual Care [address] [place] [phone] Alexia Ramsey NP Vaginal bleeding in (Primary Dx) 12/08/2023 Patient Self-Triage [facility] HealthCare/ Physicians [address] [place] [phone] Mychart, Generic Provider from Last 3 Months Allergies Active Allergy Reactions Criticality Noted Date Comments Sulfamethoxazole-Trimethoprim Hives Medium 2022 Latex Hives Medium 11/28/2017 Hives Morphine Hives,Itching Medium 02/07/2017 Itching Tramadol Itching Low 07/19/2020 Vancomycin Hives Medium 04/16/2020 Itching Medications norethindrone-eth inyl estradiol-iron (Loestrin Fe 1.5/30, 28-Day,) 1.5 mg-30 mcg per tabletIndications :Encounter for initial prescription of contraceptive pills Take 1 tablet by mouth daily 84 tablet 3 3 Active metFORMIN (GLUCOPHAGE) 500 mg tabletIndications :PCOS (polycystic ovarian syndrome) Take 1 tablet (500 mg total) by mouth daily with breakfast 30 tablet 11 3 Active albuterol HFA (PROVENTIL HFA,VENTOLIN HFA,PROAIR HFA) 90 mcg/actuation inhaler Inhale 2 puffs every 6 (six) hours as needed for shortness of breath or wheezing 1 each 3 Active benzonatate (TESSALON) 200 mg capsule Take 1 capsule (200 mg total) by mouth 3 (three) times a day as needed for cough 60 capsule 3 Active ondansetron (ZOFRAN) 4 mg tablet Take 1 tablet (4 mg total) by mouth every 8 (eight) hours as needed for nausea or vomiting 40 tablet 3 Active prochlorperazine (Compazine) 10 mg tabletIndications :Nausea and Vomiting Take 1 tablet (10 mg total) by mouth every 8 (eight) hours as needed for nausea or vomiting for up to 10 days 20 tablet 4 Active naproxen (NAPROSYN) 500 mg tablet Take 1 tablet (500 mg total) by mouth 2 (two) times a day as needed for pain Take with food. 15 tablet 4 Active cyclobenzaprine (FLEXERIL) 5 mg tablet Take 1 tablet (5 mg total) by mouth 2 (two) times a day as needed for muscle spasms CAUTION: MAY CAUSE DROWSINESS 15 tablet 4 Active Active Problems Problem Noted Date Diagnosed Date Mild intermittent asthma without complication Resolved Problems Problem Noted Date Diagnosed Date Resolved Date delivery delivered 05/15/2022 06/26/2022 Overview (05/17/2022): # ID: Afebrile. No signs/symptoms of infection. # Heme: EBL 800 mL. No symptoms acute blood loss anemia. POD#1 Hgb 7.7. Will start PO iron supplementation. # CV/Pulm: MR BP not meeting criteria for hypertensive diagnosis at this time; continue to monitor. Normotensive over the last 24 hrs. # GI/: Tolerating PO. UOP initially low, s/p 1 L LR Bolus. Voiding spontaneously. # Pain: Controlled with above regimen. Post DVT prophylaxis: The patient has the following MAJOR risk factors none and the following MINOR risk factors ceserean delivery and BMI 30-39. Lovenox will be ordered for VTE prophylaxis . # MOC: desires to defer until PP visit # MOF: # Disposition: Continue routine postoperative care Encounter for induction of labor 05/14/2022 06/26/2022 Overview (05/14/2022): Roxana Briseno is a 32 y.o. female at 39w1d who is dated by IVF=1 and is being admitted for an elective induction of labor. 1. Admit to L&D: Consents signed and placed in chart. Labs: CBC and T&S pending. Induction of labor with miso and CC. 2. FWB: Continuous monitoring. Reactive tracing. 3. ID: 3rd trimester HIV (>28 wga) negative on 04/28. GBS positive on 04/26, will start PCN. RPR on admission: pending. Membrane Status: intact. 4. Indications for UDS: none. Verbal consent obtained for UDS: Not indicated. 5. MOF: Plans to breastfeed. Urine drug screen not indicated. Patient informed of results: N/A. 6. MOC: Undecided on contraception. 7. Pain management: Undecided on epidural. 8. Post DVT prophylaxis: The patient has the following MAJOR risk factors none and the following MINOR risk factors BMI 30-39. SCDs will be ordered for VTE prophylaxis . complications #IVF : [facility]. Nml echo. #H/o ectopic s/p R salpingectomy. In 2018. #H/o PCOS. Previously on metformin. Currently no meds. #Res LL placenta previa. Resolved of 01/16/22. #MCI: AGA to LGA on serial growths. #LGA: EFW 94%ile w/ AC > 99%ile. Counseled on risk of shoulder/abd dystocia of admission. Supervision of other normal , antepartum 10/05/2021 06/26/2022 Overview (05/01/2022): -IVF with [facility], need records, requested 10/12 -nml echo -weekly NSTs @ 36wks -h/o R sided ectopic in 2018 and R salpingectomy -h/o PCOS, previously on metformin - Low lying placenta previa noted @ 20 wks -resolved as of 01/16/22 - marginal cord insertion- serial growth US starting @ 28 wks, first 86% and at 36wks 94% and AC >99% -IOL Sched 05/14/2022 @ 2000, pt aware [x] Initial BMI: 31.15 [x] Labs: complete [x] Genetic Screening: PGT completed, carrier testing negative [x] Baby ASA: yes, at 12 weeks (IVF & BMI) [x] 1hr GCT at 24-28wks:114 [x] Tdap (27-36wks): 1.25.23 AR [x] Flu Shot:11/15 LV [x] COVID vaccine: vaccinated & boosted [] Rhogam (if Rh neg): n/a A+ [x] GBS at 36 wks: GBS+ [x] undecided [] control method: [] 39 weeks discussion of IOL vs. Expectant management: [] Mode of delivery: [] For C/S bottle of CHG 4% and hand out provided @ 36wks Boy desires Circ Teaching: [x] 1st visit [x] 28-30 week [x] 36 week Immunizations Name Administration Dates Next Due Influenza, Quadrivalent, Milagro l Culture-based MDCK, Preservative Free, Antibiotic Free, Intramuscular 11/15/2021 Tdap 03/01/2022 Social History Tobacco Use Types Packs/Day Years Used Date Smoking Tobacco: Never Smokeless Tobacco: Never Tobacco Cessation:Counseling Given: Not Answered Social Connection and Isolat ion Panel [NHANES] Answer Date Recorded In a typical week, how many times do you talk on the phone with family, friends, or neighbors? More than three times a week 05/18/2022 How often do you get togethe r with friends or relatives? More than three times a week 05/18/2022 How often do you attend [facility] or adventism services? Never 05/18/2022 Do you belong to any clubs o r organizations such as islam groups, unions, fraternal or athletic groups, or [...] place to sleep or slept in a retirement (including now)? 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 Gender Identity Female 07/16/2022 10:05 AM CDT Sexual Orientation Straight 07/16/2022 10 :05 AM CDT Last Filed Vital Signs Vital Sign Reading Time Taken Comments Blood Pressure 122/76 06/26/2022 1:07 PM CDT Pulse 87 05/17/2022 8:05 AM CDT Temperature 36.6 ??C (97.9 ??F) 05/17/2022 8:05 AM CD T Respiratory Rate 18 05/17/2022 8:05 AM CDT Oxygen Saturation 98% 05/17/2022 8:05 AM CDT Inhaled Oxygen Concentration - - Weight 76.2 kg (168 lb) 06/26/2022 1:07 PM CDT Height 165.1 cm (5' 5 ) 06/26/2022 1:07 PM CDT Body Mass Index 27.96 06/26/2022 1:07 PM CDT Plan of Treatment Not on file Procedures Procedure Name Priority Date/Time Associated Diagnosis Comments HEPATITIS C ANTIBODY Routine 11/03/2021 9:54 AM CDT Supervision of other normal , antepartum PAP WITH REFLEX TO HIGH RISK HPV Routine 10/12/2021 2:41 PM CDT Supervision of other normal , antepartum from Last 3 Months or Most Recently Relevant to Health Maintenance Results * Hepatitis C antibody (11/03/2021 9:54 AM CDT) Hep C Ab NON-REACTI VE NON-REACT SHIMA [facility] SIGNAL TO CUT-OFF 0.01 <1.00 [facility] Comment: HCV antibody was non-reactive. There is no laboratory evidence of HCV infection. In most cases, no further action is required. However, if recent HCV exposure is suspected, a test for HCV RNA (test code 63931) is suggested. For additional information please refer to http://education.[employer]at[employer].com/faq/TEY78d5 (This link is being provided for informational/ educational purposes only.) Blood 11/03/2021 9:54 AM CDT 11/03/2021 9:56 AM CDT Narrative [facility] - 11/07/2021 9:34 PM CDT FASTING:NO FASTING: NO Janice Jordan MD LAB MICROBIOLOGY - GE NERAL ORDERABLES Final Result Performing Organization Address [facility] Co de Phone Number [facility] [address] [place] [address] * Pap with reflex to High Risk HPV (10/12/2021 2:41 PM CDT) CLINICAL INFORMATION: Routine exam [facility] LMP 08/13/21 [facility] Previous Pap INFORMATION NOT PROVIDED [facility] Prev. Bx INFORMATION NOT PROVIDED [facility] SOURCE: Cervix, Endocervix [facility] Pap, specimen adequacy Satisfactory for evaluation. Endocervical/claudio sformation zone component present. [facility] HPV interp Negative for intraepithelial lesion or malignancy. [facility] COMMENTS This Pap test has been evaluated with computer assisted technology. [facility] Real Estate Investment Analyst DXP, CT(ASCP) CT Screening Location: [address] [address] [facility] Comment [facility] Comment: EXPLANATORY NOTE: The Pap is a screening test for cervical cancer. It is not a diagnostic test and is subject to false negative and false positive results. It is most reliable when a satisfactory sample, regularly obtained, is submitted with relevant clinical findings and history, and when the Pap result is evaluated along with historic and current clinical information. Thin prep 10/12/2021 2:41 PM CDT 10/13/2021 12:08 AM CDT Janice Jordan MD LAB CYTOLOGY ORDERABL ES Final Result Performing Organization Address City/[facility]/ZIP Co de Phone Number [facility] [place] [address] [place] [address] from Last 3 Months or Most Recently Relevant to Health Maintenance Insurance ANTHEM ACCESS CHOICE Member Subscriber Plan / Payer (Ef fective 2021-Present) Name:Roxana Briseno Relation to Subscriber:Self Name:Roxana Briseno Payer ID:[id number] (NAIC) Type:[facility] Address: [address] IDPA ANTHEM ACCESS CHOICE AETNA BETTER [facility] IDGA AETNA BETTER [facility] Advance Directives For more information, please contact: [phone] * Full Code (Latest Code Status on File) Date Activated Date Inactivated Comments 05/15/2022 8:31 AM 05/17/2022 8:36 PM * Full Code Date Activated Date Inactivated Comments 05/14/2022 8:34 PM 05/15/2022 8:31 AM Full CPR in case of cardiopulmonary arrest Care Teams Office Copy Selector Relationship Specialty Start Date End Date Kit Arriola MD [address] [address] PCP - General Emergency Medicine 12/19/18
--- OUTSIDE RECORDS SUMMARY | 2024-02-17 13:54 | XMS_ITS | Encounter Summary ---
Author Organization [facility] Healthcare Address [address] [place] [address] Care Team Providers Care Dungeon Master Name Role Phone Kit Arriola MD Primary Care Provider [phone] Encounter Details Date Type Department Care Team (Late st Contact Info) Description 09/06/2023 Patient Self-Triage [facility] HealthCare/ Physicians [address] [place] [address] Mychart, [facility] Provider [address] [place], [place] [id number] Social History Tobacco Use Types Packs/Day Years [...] often do you attend chur ch or evangelical services? Never 05/18/2022 Do you belong to any clubs o r organizations such as mormonism groups, unions, fraternal or athletic groups, or [...] in a longterm (including now)? 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
--- OUTSIDE RECORDS SUMMARY | 2024-02-17 13:54 | XMS_ITS | Encounter Summary ---
Author Organization [facility] Healthcare Address [address] [place] [address] Care Team Providers Care Microfilm Duplicating Unit Supervisor Name Role Phone Kit Arriola MD Primary Care Provider [phone] Reason for Visit * Reason Comments Back Pain Entered automaticall y based on patient selection in GERS. Encounter Details Date Type Department Care Team (Late st Contact Info) Description 05/08/2023 9:00 AM CDT E-Visit [facility] Medical Group Virtual Care [address] [place] [address] Alexia Ramsey NP [address] [place] [address] E-Visit for Back Pain Social History Tobacco Use Types Packs/Day Years [...] any clubs o r organizations such as latter-day groups, unions, fraternal or athletic groups, or [...] a nursing home (including now)? 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 20 tablet 05/08/2023 4 documented in this encounter Miscellaneous Notes * E-Visit Note - Alexia Ramsey NP - 05/08/2023 9:05 AM CDT Images from the original note were not included. Roxana Briseno 05/08/2023 E-Visit Submission Subjective/Objective: Roxana Briseno contacted the office today via e-visit for Back Pain. The patient-submitted questionnaire was assessed for pertinent information and the patient's problem list, medication list, and allergies were reviewed as part of the e-visit. The chart was updated to identify any changes in these areas. Assessment: Diagnosis Plan 1. Acute low back pain, unspecified back pain laterality, unspecified whether sciatica present Plan: The patient was given information regarding any new medication(s) prescribed, if applicable, as well as any iybh-uhl-ruouyee remedies. She was given instructions regarding follow up and timeframe if symptoms worsen or don???t improve. These instructions were included in the GERS message reply tothe patient. Patient Instructions were included in the message reply to patient. My total encounter time on 05/08/2023 was 5 minutes which was spent in the activities documented inthe note. New Medications Ordered This Visit naproxen (NAPROSYN) 500 mg tablet Sig: Take 1 tablet (500 mg total) by mouth 2 (two) times a day with meals PRN PAIN. Dispense: 20 tablet Refill: 0 cyclobenzaprine (FLEXERIL) 5 mg tablet Sig: Take 1 tablet (5 mg total) by mouth 2 (two) times a day as needed for muscle spasms CAUTION: MAY CAUSE DROWSINESS Dispense: 15 tablet Refill: 0 Alexia Ramsey NP documented in this encounter Plan of Treatment Not on file documented as of this encounter Visit Diagnoses Diagnosis Acute low back pain, unspecified back pain laterality, unspecified whether sciatica present- Primary documented in this encounter Care Teams Microfilm Duplicating Unit Supervisor Relationship Specialty Start Date End Date Kit Arriola MD [address] [address] PCP - General Emergency Medicine 12/19/18 documented as of this encounter
--- OUTSIDE RECORDS SUMMARY | 2024-02-17 13:54 | XMS_ITS | Encounter Summary ---
Author Organization [facility] Healthcare Address [address] [place] [address] Care Team Providers Care Ship'S Captain Name Role Phone Kit Arriola MD Primary Care Provider [phone] Encounter Details Date Type Department Care Team (Late st Contact Info) Description 12/08/2023 Patient Self-Triage [facility] HealthCare/ Physicians [address] [place] [address] Mychart, [facility] Provider [address] [place], [place] [id number] Social History Tobacco Use Types Packs/Day Years [...] often do you attend chur ch or congregation services? Never 05/18/2022 Do you belong to any clubs o r organizations such as advent groups, unions, fraternal or athletic groups, or [...] place to sleep or slept in a residential (including now)? 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
--- OUTSIDE RECORDS SUMMARY | 2024-02-17 13:54 | XMS_ITS | Encounter Summary ---
Author Organization [facility] Healthcare Address [address] [place] [address] Care Team Providers Care Skirt Trimmer Name Role Phone Kit Arriola MD Primary Care Provider [phone] Reason for Visit * Reason Comments Sinus Problem Entered automaticall y based on patient selection in [employer]. Encounter Details Date Type Department Care Team (Late st Contact Info) Description 05/04/2023 7:40 AM CDT E-Visit [facility] Medical Group Virtual Care [address] [place] [phone] Jessica Mcgarry MD [address] [place] [address] [address] [place] [address] Your Medications Social History Tobacco Use Types Packs/Day Years [...] often do you attend chur ch or buddhism services? Never 05/18/2022 Do you belong to [...] place to sleep or slept in a [place] facility (including now)? 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 Gender Identity Female 07/16/2022 10:05 AM CDT Sexual Orientation Straight 07/16/2022 10 :05 AM CDT documented as of this encounter Ordered Prescriptions Prescription Sig Dispense Quantity Refills Last Filled Start Date End Date amoxicillin-clavul anate (Augmentin) 875-125 mg per tablet Take 1 tablet by mouth 2 (two) times a day for 10 days 20 tablet 05/04/2023 05/14/2023 documented in this encounter Miscellaneous Notes * E-Visit Note - Jessica Mcgarry MD - 05/04/2023 7:50 AM CDT Roxana Briseno 05/04/2023 E-Visit Submission Subjective/Objective: Roxana Briseno contacted the office today via e-visit for Sinusitis. C/o 1 week h/o nasal congestion, pain around the nose and face, MIRAMONTES, sore throat, cough, sneezing, watery eyes. States she's blowing out mostly thick yellow green mucus. Denies fevers. States she's confident she's not . The patient-submitted questionnaire was assessed for pertinent information and the patient's problem list, medication list, and allergies were reviewed as part of the e-visit. The chart was updated to identify any changes in these areas. Assessment: Diagnosis Plan 1. Acute non-recurrent sinusitis, unspecified location Plan: Augmentin erx'ed to the pharmacy. If any problems or questions or no improvement of symptoms in thenext few days, please f/u w/ PCP. If symptoms worsen, go to the ED. The patient was given information regarding any new medication(s) prescribed, if applicable, as well as any wihz-mcf-[id number] remedies. She was given instructions regarding follow up and timeframe if symptoms worsen or don???t improve. These instructions were included in the [employer] message reply tothe patient. Patient Instructions were included in the message reply to patient. My total encounter time on 05/04/2023 was 5 minutes which was spent in the activities documented inthe note. New Medications Ordered This Visit amoxicillin-clavulanate (Augmentin) 875-125 mg per tablet Sig: Take 1 tablet by mouth 2 (two) times a day for 10 days Dispense: 20 tablet Refill: 0 Jessica Mcgarry MD documented in this encounter Plan of Treatment Not on file documented as of this encounter Visit Diagnoses Diagnosis Acute non-recurrent sinusitis, unspecified location- Primary documented in this encounter Care Teams Skirt Trimmer Relationship Specialty Start Date End Date Kit Arriola MD [address] [address] PCP - General Emergency Medicine 12/19/18 documented as of this encounter
--- OUTSIDE RECORDS SUMMARY | 2024-02-17 13:54 | XMS_ITS | Encounter Summary ---
Author Organization [facility] Healthcare Address [address] [place] [address] Care Team Providers Care Rn Iv Therapy Name Role Phone Kit Arriola MD Primary Care Provider [phone] Reason for Visit * Reason Comments Diarrhea Entered automaticall y based on patient selection in [facility]. Encounter Details Date Type Department Care Team (Late st Contact Info) Description 07/16/2023 7:15 PM CDT E-Visit [facility] Virtual Care [address] [place] [phone] Dottie Archibald, GABRIELLE [address] [place] [address] E-Visit for Diarrhea Social History Tobacco Use Types Packs/Day Years [...] often do you attend chur ch or latter day services? Never 05/18/2022 Do you belong to any clubs o r organizations such as mandaen groups, unions, fraternal or athletic groups, or [...] place to sleep or slept in a chcf (including now)? 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 Roxana Briseno 07/16/2023 E-Visit Submission Subjective/Objective: Roxana Briseno contacted the office today via e-visit for Diarrhea. The patient-submitted questionnaire was assessed for pertinent information and the patient's problem list, medication list, and allergies were reviewed as part of the e-visit. The chart was updated to identify any changes in these areas. Assessment: Diagnosis Plan 1. Viral gastroenteritis Plan: The patient was given information regarding any new medication(s) prescribed, if applicable, as well as any kcnw-dih-[id number] remedies. She was given instructions regarding follow up and timeframe if symptoms worsen or don???t improve. These instructions were included in the Pronutria message reply tothe patient. Patient Instructions were included in the message reply to patient. My total encounter time on 07/16/2023 was 5 minutes which was spent in the activities documented inthe note. New Medications Ordered This Visit loperamide (Anti-DiarrheaL, loperamide,) 2 mg tablet Sig: Take 1 tablet (2 mg total) by mouth 4 (four) times a day as needed for diarrhea for up to 10 days Dispense: 20 tablet Refill: 0 Dottie Archibald NP documented in this encounter Plan of Treatment Not on file documented as of this encounter Visit Diagnoses Diagnosis Viral gastroenteritis- Primary Intestinal infection due to other organism, NEC documented in this encounter Care Teams Rn Iv Therapy Relationship Specialty Start Date End Date Kit Arriola MD [address] [address] PCP - General Emergency Medicine 12/19/18 documented as of this encounter
--- OUTSIDE RECORDS SUMMARY | 2024-02-17 13:54 | XMS_ITS | Clinical Summary ---
Author Organization [facility] Address [address] [place] [address] Care Team Providers Care Barbering Teacher Name Role Phone Kit Arriola MD Primary Care Provider [phone] Allergies Active Allergy Reactions Criticality Noted Date [...] visit [x] 28-30 week [x] 36 week Encounters Date Type Department Care Team Description 12/21/2023 Patient Self-Triage [facility] [address] [place] [address] Mariumt, Generic Provider 12/08/2023 8:45 AM CDT Telemedicine [facility] Virtual Care [address] [place] [phone] Aelxia Ramsey NP Vaginal bleeding in (Primary Dx) 12/08/2023 Patient Self-Triage [facility] [address] [place] [address] Mychart, Generic Provider from Last 3 Months Immunizations Name Administration Dates Next Due Influenza, Quadrivalent, Milagro l Culture-based MDCK, Preservative Free, Antibiotic Free, Intramuscular 11/15/2021 Tdap 03/01/2022 Surgical History Surgery Date Site/Laterality Comments US ABDOMEN COMPLETE W LIVER DOPPLER (C) 11/12/2017 R ight US ABDOMEN COMPLETE W LIVER DOPPLER (C) 11/13/2017 R ight ECTOPIC SURGERY SECTION 05/15/2022 Medical History Medical History Date Comments History of ectopic Social History Tobacco Use Types Packs/Day Years [...] any clubs o r organizations such as quaker groups, unions, fraternal or athletic groups, or [...] place to sleep or slept in a long-term (including now)? 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 Gender Identity Female 07/16/2022 10:05 AM CDT Sexual Orientation Straight 07/16/2022 10 :05 AM CDT Obstetrics History Para Term AB IAB SAB Ectopic Multiple Livin g Live Births 4 2 2 2 2 0 2 2 Date Outcome GA Total Labor Labor/2nd/3rd Weight Sex Type Anes PTL Nisha A1 A5 Name Clin Ectopic 2014 Term F Vag-S pont Livin g 2018 Ectopic 2022 Term 39w 2d 0h 01m 0h 01m 3.3 kg (7 lb 4.4 oz) M C-Sec tion Epidur al N Livin g 2 9 PERKI NS,YULIA JEOVANNY Conte, Sumi Desai MD Complications: Intolera nce Delivery Location:[facility] Main C ampus ([facility] L AND D PROCEDURE) Comments 2022- TS- pLTCS for NRFS bab y boy Name TBA Last Filed Vital Signs Vital Sign Reading [...] 06/26/2022 1:07 PM CDT Plan of Treatment Health Maintenance Due Date Last Done Comments Pneumococcal vaccine <65 (1 of 2 - PCV) 02/26/1998 Varicella Vaccines (1 of 2 - 13+ 2-dose series) 02/26/2005 Hepatitis B Screening 02/26/2010 Regular Well Visit/Exam 18-64 02/26/2010 Cervical Cancer Screening 10/12/2022 10/12/2021 Depression Screening 06/27/2023 06/26/2022 Covid-19 Vaccine (3 - 2023-2 5 season) 2023 03/01/2020, 02/09/2020 Influenza Vaccine (#1) 2023 11/15/2021 DTaP/Tdap/Td Vaccine (2 - Td or Tdap) 03/01/2032 03/01/2022 Hepatitis C Screening Completed 11/03/2021 HPV Vaccines Aged Out No longer eligi ble based on patient's age to complete this topic Procedures Procedure Name Priority Date/Time Associated Diagnosis [...] a test for HCV RNA (test code 86826) is suggested. For additional information please refer to http://education.TheBlogTV/faq/EEA93u2 (This link is being provided for informational/ educational purposes only.) Blood 11/03/2021 9:54 AM CDT 11/03/2021 9:56 AM CDT Narrative [facility] - 11/07/2021 9:34 PM CDT FASTING:NO FASTING: NO Janice Jordan MD LAB MICROBIOLOGY - GE NERAL ORDERABLES Final Result Performing Organization Address City/[facility]/ZIP Co de Phone Number MARICRUZ [facility] [address] [place] [phone] * Pap with reflex to High Risk HPV (10/12/2021 2:41 PM CDT) CLINICAL INFORMATION: Routine exam [facility] [employer] [facility] LMP 08/13/21 [facility] Previous Pap INFORMATION NOT PROVIDED [facility] Prev. Bx INFORMATION NOT PROVIDED [facility] SOURCE: Cervix, Endocervix [facility] Pap, specimen adequacy Satisfactory for evaluation. Endocervical/claudio sformation zone component present. [facility] HPV interp Negative for intraepithelial lesion or malignancy. [facility] COMMENTS This Pap test has been evaluated with computer assisted technology. [facility] Doubler Operator DXP, CT(ASCP) CT Screening Location: [facility] [address] [place] [address] [facility] Comment [facility] Comment: EXPLANATORY NOTE: The Pap [...] ORDERABL ES Final Result Performing Organization Address City/[facility]/ZIP Co de Phone Number [facility] [address] [place] [address] from Last 3 Months or Most Recently Relevant to Health Maintenance Insurance ANTHEM ACCESS CHOICE Member Subscriber Plan / Payer (Ef fective 2021-Present) Name:Roxana Briesno Relation to Subscriber:Self Name:Roxana Briseno Payer ID:[id number] (NAIC) Type:[facility] Address: [address] PLAN [place]ESS [place] [facility] [place] Advance Directives For more information, please contact: [phone] * Full Code (Latest Code Status on File) Date Activated Date Inactivated Comments 05/15/2022 8:31 AM 05/17/2022 8:36 PM * Full Code Date Activated Date Inactivated Comments 05/14/2022 8:34 PM 05/15/2022 8:31 AM Full CPR in c ase of cardiopulmonary arrest Care Teams Barbering Teacher Relationship Specialty Start Date End Date Kit Arriola MD [address] [address] PCP - General Emergency Medicine 12/19/18
--- OUTSIDE RECORDS SUMMARY | 2024-02-17 13:55 | XMS_ITS | Encounter Summary ---
Author Organization [facility] Healthcare Address [address] [place] [address] Care Team Providers Care Potline Monitor Name Role Phone Kit Arriola MD Primary Care Provider [phone] Encounter Details Date Type Department Care Team (Late st Contact Info) Description 02/19/2023 Patient Self-Triage [facility]/ Physicians [address] [place] [address] Mychart, [facility] Provider [address] [place], [place] [phone] Social History Tobacco Use Types Packs/Day Years [...] often do you attend chur ch or bahai services? Never 05/18/2022 Do you belong to any clubs o r organizations such as bahai groups, unions, fraternal or athletic groups, or [...] in a residential (including now)? 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
--- OUTSIDE RECORDS SUMMARY | 2024-02-17 13:55 | XMS_ITS | Encounter Summary ---
Author Organization [facility] Address [address] [facility] [address] [place] [address] Care Team Providers Care Postal Service Clerk Name Role Phone Kit Arriola MD Primary Care Provider Encounter Details Date Type Department Care Team (Late st Contact Info) Description 10/15/2022 12:30 PM CDT Telemedicine [facility] Virtual Care [address] [place] [address] Marilu Valdes, BELT LOOP CUTTER [address] [facility] [address] [place] [address] COVID-19 (Primary Dx) Social History Tobacco Use Types [...] often do you attend chur ch or episcopal services? Never 05/18/2022 Do you belong to [...] in a mcfp (including now)? 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 30 tablet 10/15/2022 3 documented in this encounter Progress Notes * Marilu Leslie, BELT LOOP CUTTER - 10/15/2022 12:30 PM CDT Images from the original note were not included. [facility] [place] DATE OF VISIT: 10/15/2022 PATIENT NAME: Roxana Briseno DATE: 1990 This was a telemedicine visit with Roxana Briseno alone which took place via real-time video connection. During the visit, I was located at home and the patient was located at home in the state [facility]. The patient visit started at 1224 and ended at 1229. My total encounter time on 10/15/2022 was 5 minutes which was spent in the activities documented in the note. This includes time spent prior to the visit and after the visit in direct care of the patient. This time does not include time spent in any separately reportable services. I have explained the option of participating in a telemedicine visit to the patient. After being given an opportunity to ask questions about and discuss this type of visit, the patient verbally consented to proceeding with the telemedicine visit. The patient understands that this service replaces an office visit and they may be billed and/or responsible for any applicable copayments. HPI Roxana Briseno is a 32 y.o. female presents today with chills and cough and congestion. She is positive for covid. MEDICATIONS Current Outpatient Medications: albuterol HFA (PROVENTIL HFA,VENTOLIN HFA,PROAIR HFA) 90 mcg/actuation inhaler, Inhale 2 puffs every 6 (six) hours as needed for shortness of breath or wheezing, Disp: 1 each, Rfl: 0 metFORMIN (GLUCOPHAGE) 500 mg tablet, Take 1 tablet (500 mg total) by mouth daily with breakfast, Disp: 30 tablet, Rfl: 11 nirmatrelvir 300 mg-ritonavir 100 mg (PAXLOVID 300mg-100 mg) tablets,dose pack tablets in a dose pack, Take 300 mg nirmatrelvir (2 x 150 mg tablets) with 100 mg ritonavir (1 x 100 mg tablet) with allthree tablets taken together by mouth twice daily for 5 days., Disp: 30 tablet, Rfl: 0 norethindrone-ethinyl estradiol-iron (Loestrin Fe 1.5, 28-Day,) 1.5 mg-30 mcg per tablet, Take 1tablet by mouth daily, Disp: 84 tablet, Rfl: 3 ALLERGIES Allergies Allergen Reactions Bactrim [Sulfamethoxazole-Trimethoprim] Hives Latex Hives Hives Morphine Hives and Itching Itching Vancomycin Hives Itching Tramadol Itching REVIEW OF SYSTEMS Review of Systems Constitutional: Negative. Negative for activity change and fatigue. HENT: Negative. Negative for congestion, rhinorrhea and sinus pain. Eyes: Negative. Negative for pain and redness. Respiratory: Negative. Negative for cough and wheezing. Cardiovascular: Negative. Negative for chest pain and leg swelling. Gastrointestinal: Negative. Negative for abdominal distention and abdominal pain. Endocrine: Negative. Genitourinary: Negative. Negative for difficulty urinating, frequency and urgency. Musculoskeletal: Negative. Negative for back pain and neck pain. Skin: Negative. Negative for color change and wound. Neurological: Negative. Negative for dizziness, numbness and headaches. Psychiatric/Behavioral: Negative. Negative for behavioral problems. The patient is not nervous/anxious. PHYSICAL EXAM Physical Exam Vitals reviewed. Constitutional: Appearance: Normal appearance. HENT: Head: Normocephalic and atraumatic. Eyes: Conjunctiva/sclera: Conjunctivae normal. Pupils: Pupils are equal, round, and reactive to light. Pulmonary: Effort: Pulmonary effort is normal. Comments: Able to speak in full sentences without difficulty. Without a stethoscope no audible wheezing noted. Musculoskeletal: General: Normal range of motion. Cervical back: Normal range of motion. Skin: Findings: No rash. Neurological: General: No focal deficit present. Mental Status: She is alert and oriented to person, place, and time. Psychiatric: Mood and Affect: Mood normal. Behavior: Behavior normal. ASSESSMENT/PLAN/RECOMMENDATIONS Assessment/Plan Diagnoses and all orders for this visit: COVID-19 (Primary) Comments: paxlovid as prescribed. tylenol or ibuprofen as needed. follow CDC guidelines. work note sent. Other orders - nirmatrelvir 300 mg-ritonavir 100 mg (PAXLOVID 300mg-100 mg) tablets,dose pack tablets in a dose pack; Take 300 mg nirmatrelvir (2 x 150 mg tablets) with 100 mg ritonavir (1 x 100 mg tablet) with all three tablets taken together by mouth twice daily for 5 days. Future Appointments Date Time Provider Department Center 10/15/2022 To Be Determined Marilu Leslie NP [facility] The patient has been informed that the [...] billed and/or responsible for any applicable copayments. Patient offered no further complaints and was in agreement with plan of care. Patient was advised regarding dosage, use, and side effects of any new medications. Patient was advised to f/u with PCP with any worsening or little to no improvement of symptoms. The patient was given the opportunity to have all questions answered today and was in agreement with the plan of care. Marilu Leslie NP documented in this encounter Plan of Treatment Not on file documented as of this encounter Visit Diagnoses Diagnosis COVID-19- Primary documented in this encounter Care Teams Postal Service Clerk Relationship Specialty Start Date End Date Kit Arriola MD [address] [address] PCP - General Emergency Medicine 12/19/18 documented as of this encounter
--- OUTSIDE RECORDS SUMMARY | 2024-02-17 13:55 | XMS_ITS | Encounter Summary ---
Author Organization [facility] Address [address] [place] [address] Care Team Providers Care Ring Conductor Name Role Phone Kit Arriola MD Primary Care Provider Encounter Details Date Type Department Care Team (Late st Contact Info) Description 02/19/2023 Patient Self-Triage [facility]/ [facility] [address] [place] [address] Mychart, [facility] Provider [address] [place], [place] [phone] Social History Tobacco Use Types Packs/Day Years [...] often do you attend chur ch or jain services? Never 05/18/2022 Do you belong to any clubs o r organizations such as adventist groups, unions, fraternal or athletic groups, or [...] in a fci (including now)? 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
--- OUTSIDE RECORDS SUMMARY | 2024-02-17 13:55 | XMS_ITS | Encounter Summary ---
Author Organization [facility] Address [address] [place] [address] Care Team Providers Care Graphic Design Professor Name Role Phone Kit Arriola MD Primary Care Provider [phone] Reason for Visit * Reason Comments Sore Throat Encounter Details Date Type Department Care Team (Late st Contact Info) Description 08/19/2022 9:00 AM CDT Telemedicine [facility] Medical [facility] Virtual Care [address] [place] [address] Jessica Mcgarry MD [address] [place] [address] [address] [facility] [address] [place] [address] Acute pharyngitis due to other specified organisms (Primary Dx); Acute cough; Medicine refill Social History Tobacco Use Types Packs/Day Years [...] often do you attend chur ch or yarsani services? Never 05/18/2022 Do you belong to [...] in a fpc (including now)? No 05/18/2022 [place] Depression Scale Answer Date Recorded [place] Depression Scale Total 0 06/26/2022 The thought of harming myself has occurred to me . Never 06/26/2022 Personal Safety Answer Date Recorded Have you ever been in or are you currently in a harmful physical or emotional relationship or is someone making you feel afraid or unsafe? 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 Briseno, It was a pleasure speaking with you today. I've sent medication to the pharmacy you requested. Prednisone burst- This is an anti-inflammatory that is to be taken 1 tablet twice daily for 5 days.It may upset your stomach so take it with a little food. It could make you jittery, so don't take it at bedtime. Please finish the prescription even though your are (hopefully) feeling much better. If you are having side effects from this medicine, please stop the medicine and follow up with your primary care provider. Refill of your Albuterol inhaler- You can use 1-2 puffs every 4 to 6 hours as needed for shortness of breath, wheezing or chest tightness. It may make you jittery, but this doesn't last more than 30 minutes usually. It also tastes bad. Just rinse your mouth out afterwards or take a drink of something to rinse out your mouth. I encourage you to take a total of 3 home COVID tests (so one more test tomorrow) over the next 5 days as recommended by the CDC to confirm these symptoms are not COVID related. If you have no improvement or worsening of your symptoms, please follow up with your Primary Care Provider or a Convenient Care/Urgent Care where someone can see you in person rather than virtually. I strive to provide you with EXCELLENT service. You may receive a survey after your visit today. If you cannot rate your experience as EXCELLENT, please let us know how we can improve and better meet your needs. Thank you for choosing [facility]! Hope you feel better soon! Jessica Mcgarry MD documented in this encounter Ordered Prescriptions Prescription Sig Dispense Quantity Refills Last Filled Start Date End Date albuterol HFA (PROVENTIL HFA,VENTOLIN HFA,PROAIR HFA) 90 mcg/actuation inhaler Inhale 2 puffs every 6 (six) hours as needed for shortness of breath or wheezing 1 each 08/19/2022 predniSONE (DELTASONE) 20 mg tablet Take 1 tablet (20 mg) by mouth 2 (two) times a day for 5 days 10 tablet 08/19/2022 3 documented in this encounter Progress Notes * Jessica Mcgarry MD - 08/19/2022 9:00 AM CDT Images from the original note were not included. This was a telemedicine visit with Roxana Briseno alone which took place via real-time video connection with [facility]. During the visit, I was located at home and the patient was located at home in the [facility]. The patient visit started at 0854 and ended at 0905. My total encounter time on 08/19/2022 was 22 minutes which was spent in the activities documented in the note. This includes time spentprior to the visit and after the visit [...] Subjective/Objective Patient ID: Roxana Briseno is a 32 y.o. female. Chief Complaint Sore Throat C/o sore throat, headache, head congestion, cough- non-productive, chest congestion that started yesterday. Denies fevers, wheezing, shortness of breath. has same symptoms. Tried Tylenol for MIRAMONTES, Chloraseptic. Taken 2 home COVID tests yesterday and 1 today and all 3 were negative. When she looks in back of throat, it looks swollen, but no pus pockets. States she needs a refill of her Albuterol, but doesn't feel her asthma is flaring. Sore Throat This is a new problem. The current episode started yesterday. The problem has been unchanged. Neither side of throat is experiencing more pain than the other. There has been no fever. Associated symptoms include congestion, coughing, headaches and a hoarse voice. Pertinent negatives include no abdominal pain, diarrhea, drooling, ear discharge, ear pain, plugged ear sensation, neck pain, shortnessof breath, stridor, swollen glands, trouble swallowing or vomiting. She has had no exposure to strep or mono. She has tried acetaminophen for the symptoms. The treatment provided mild relief. Review of Systems HENT: Positive for congestion, hoarse voice and sore throat. Negative for drooling, ear discharge, ear pain and trouble swallowing. Respiratory: Positive for cough. Negative for shortness of breath and stridor. Gastrointestinal: Negative for abdominal pain, diarrhea and vomiting. Musculoskeletal: Negative for neck pain. Neurological: Positive for headaches. Physical Exam Vitals reviewed: Physical exam is limited by this being a telemedicine visit.. Constitutional: General: She is not in acute distress. Appearance: Normal appearance. She is not ill-appearing, toxic-appearing or diaphoretic. Comments: Pt is lying down in bed. HENT: Head: Normocephalic and atraumatic. Right Ear: External ear normal. Left Ear: External ear normal. Nose: Nose normal. Mouth/Throat: Mouth: Mucous membranes are moist. Comments: Unable to visualize post pharynx b/c pt doesn't have light, flashlight, another phone, etc. Eyes: General: No scleral icterus. Right eye: No discharge. Left eye: No discharge. Extraocular Movements: Extraocular movements intact. Conjunctiva/sclera: Conjunctivae normal. Pupils: Pupils are equal, round, and reactive to light. Pulmonary: Effort: Pulmonary effort is normal. Comments: Pt was able to speak in full and complete sentences. Pt did not cough during the televisit. Pt was not using accessory muscles to breathe. Skin: Capillary Refill: Capillary refill takes less than 2 seconds. Neurological: General: No focal deficit present. Mental Status: She is alert and oriented to person, place, and time. Psychiatric: Mood and Affect: Mood normal. Behavior: Behavior normal. Thought Content: Thought content normal. Judgment: Judgment normal. I have reviewed the most recent progress note prior to this visit. Assessment/Plan Diagnoses and all orders for this visit: Acute pharyngitis due to other specified organisms (J02.8) (Primary) Unable to visualize post pharynx on video visit b/c pt doesn't have flashlight/another phone/etc. Will treat as viral URI at this time based on symptoms. Encourage pt to take another COVID test tomorrow to complete 3 home COVID tests on 3 different days as recommended by CDC. Prednisone Burst erx'ed to pharmacy. Instructed on use and possible side effects of the medicine. If any problems or questions or no improvement of symptoms in the next few days, please f/u w/ PCP. If symptoms worsen, go to the ED. Pt verbalized understanding. Acute cough (R05.1) Encouraged patient to maintain good hydration and rest. May use OTC meds as directed to treat symptoms. Reviewed s/sx to watch for poss bacterial infections including, but not limited to fever >101.9 F, worsening sx, wheezing, coughing or blowing out blaze red phlegm. If patient sees these or any other sx that are concerning, call PCP. Pt verbalizes understanding. Medicine refill (Z76.0) Pt states she doesn't feel her asthma is flaring at this time. RF Albuterol HFA MDI erx'ed to pharmacy. Instructed on use and possible side effects of the medicine. If any problems or questions or noimprovement of symptoms in the next few days, please f/u w/ PCP. If symptoms worsen, go to the ED. Pt verbalized understanding. Other orders - predniSONE (DELTASONE) 20 mg tablet; Take 1 tablet (20 mg) by mouth 2 (two) times a day for 5 days - albuterol HFA (PROVENTIL HFA,VENTOLIN HFA,PROAIR HFA) 90 mcg/actuation inhaler; Inhale 2 puffs every 6 (six) hours as needed for shortness of breath or wheezing Jessica Mcgarry MD documented in this encounter Plan of Treatment Not on file documented as of this encounter Visit Diagnoses Diagnosis Acute pharyngitis due to other specified organisms- Primary Acute cough Medicine refill documented in this encounter Care Teams Graphic Design Professor Relationship Specialty Start Date End Date Kit Arriola MD [address] [address] PCP - General Emergency Medicine 12/19/18 documented as of this encounter
--- OUTSIDE RECORDS SUMMARY | 2024-02-17 13:55 | XMS_ITS | Encounter Summary ---
Author Organization [facility] Healthcare Address [address] [place] [address] Care Team Providers Care Otr Van Cdl Truck Driver Name Role Phone Kit Arriola MD Primary Care Provider [phone] Encounter Details Date Type Department Care Team (Late st Contact Info) Description 08/19/2022 Patient Self-Triage [facility] HealthCare/ Physicians [address] [place] [address] Mychart, [facility] Provider [address] [place], [place] [id number] Social History Tobacco Use Types Packs/Day Years [...] often do you attend chur ch or caodaism services? Never 05/18/2022 Do you belong to any clubs o r organizations such as yazdanism groups, unions, fraternal or athletic groups, or [...] place to sleep or slept in a custodial (including now)? 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
--- OUTSIDE RECORDS SUMMARY | 2024-02-17 13:55 | XMS_ITS | Encounter Summary ---
Author Organization [facility] Healthcare Address [address] [place] [address] Care Team Providers Care Product Development Chemist Name Role Phone Kit Arriola MD Primary Care Provider [phone] Reason for Visit * Reason Comments Sinus Problem Entered automaticall y based on patient selection in [employer]. Encounter Details Date Type Department Care Team (Late st Contact Info) Description 04/26/2023 2:20 AM CDT E-Visit [facility] Medical [facility] Virtual Care [address] [place] [address] Daksha Mac, SYSTEMS TESTING LABORATORY TECHNICIAN [address] [place] [address] E-Visit for Sinus Social History Tobacco Use [...] often do you attend chur ch or jehovah's witness services? Never 05/18/2022 Do you belong to [...] in a fdc (including now)? 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 The patient-submitted questionnaire was assessed for pertinent information and the patient's problem list, medication list, and allergies were reviewed as part of the e-visit. The chart was updated to identify any changes in these areas. Assessment: No diagnosis found. Plan: The patient was given information regarding any new medication(s) prescribed, if applicable, as well as any [id number] remedies. She was given instructions regarding follow up and timeframe if symptoms worsen or don???t improve. These instructions were included in the [employer] message reply tothe patient. Patient Instructions were included in the message reply to patient. My total encounter time on 04/26/2023 was 5 minutes which was spent in the activities documented inthe note. Daksha Mac NP documented in this encounter Plan of Treatment Not on file documented as of this encounter Visit Diagnoses Not on filedocumented in this encounter Care Teams Product Development Chemist Relationship Specialty Start Date End Date Kit Arriola MD [address] [address] PCP - General Emergency Medicine 12/19/18 documented as of this encounter
--- OUTSIDE RECORDS SUMMARY | 2024-02-17 13:55 | XMS_ITS | Encounter Summary ---
Author Organization [facility] Healthcare Address [address] [place] [address] Care Team Providers Care Supervisor Real Estate Office Name Role Phone Kit Arriola MD Primary Care Provider [phone] Reason for Visit * Reason Comments COVID-19 EVALUATION Entered automaticall y based on patient selection in [employer]. Encounter Details Date Type Department Care Team (Late st Contact Info) Description 02/19/2023 3:35 PM SECURITY LEAD E-Visit [facility] Medical Group Virtual Care [address] [place] [address] Zina Hager, DRYING ROOM SUPERVISOR [address] [place] [address] E-Visit for COVID Concern Social History Tobacco [...] often do you attend chur ch or samaritan services? Never 05/18/2022 Do you belong to any clubs o r organizations such as buddhist groups, unions, fraternal or athletic groups, or [...] in a halfway (including now)? No 05/18/2022 [place] Depression Scale Answer Date Recorded [place] Depression Scale Total 0 06/26/2022 The thought [...] on file Legal Sex Female 5:56 PM SECURITY LEAD Gender Identity Female 07/16/2022 10:05 AM CDT Sexual Orientation Straight 07/16/2022 10 :05 AM CDT documented as of this encounter Patient Instructions * Attachments The following attachments cannot be sent through Care Everywhere. * Nirmatrelvir/Ritonavir (By mouth) (Moroccan) documented in this encounter Ordered Prescriptions Prescription Sig Dispense Quantity Refills Last Filled Start Date End Date nirmatrelvir 300 mg-ritonavir 100 mg (Paxlovid) tablets,dose pack tablets in a dose pack Take 300 mg nirmatrelvir (2 x 150 mg tablets) with 100 mg ritonavir (1 x 100 mg tablet) with all three tablets taken together by mouth twice daily for 5 days 30 tablet 02/19/2023 documented in this encounter Miscellaneous Notes * E-Visit Note - Zina Hager NP - 02/19/2023 3:35 PM CST Roxana Briseno 02/19/2023 E-Visit Submission Subjective/Objective: Roxana Briseno contacted the office today via e-visit for Cough. The patient-submitted questionnaire was assessed for pertinent information and the patient's problem list, medication list, and allergies were reviewed as part of the e-visit. The chart was updated to identify any changes in these areas. Reports cough, congestion, sore throat, headache. COVID positive. Symptoms started 02/18/23 Assessment: Diagnosis Plan 1. COVID-19 virus infection Plan: The patient was given information regarding any new medication(s) prescribed, if applicable, as well as any [id number]-[id number] remedies. She was given instructions regarding follow up and timeframe if symptoms worsen or don???t improve. These instructions were included in the [employer] message reply tothe patient. Patient Instructions were included in the message reply to patient. My total encounter time on 02/19/2023 was 5 minutes which was spent in the activities documented inthe note. Patient is COVID positive. High risk given asthma and BMI 27.96. -Paxlovid twice daily for 5 days Encouraged pt to treat symptoms as directed as needed and encourage oral fluid intake. Discussed with patient to present to ED for increasing difficulty with breathing, shortness of breath, chest pain, dizziness, intractable nausea, vomiting or diarrhea. Follow up with PCP. Patient verbalizes understanding. Stay home for 5 days from start of symptoms and isolate from others, including family members. If you have no symptoms or your symptoms are resolving AND are fever free for 24 hours without the aid of fever reducing meds after 5 days, you can leave your house. Continue to wear a mask around others for 5 additional days. If you have a fever, continue to stay home until your fever resolves. For further information you may go to the CDC website: www.CDC.gov/COVID19 Zina Hager NP RITY LEAD documented in this encounter Plan of Treatment Not on file documented as of this encounter Visit Diagnoses Diagnosis COVID-19 virus infection- Primary documented in this encounter Care Teams Supervisor Real Estate Office Relationship Specialty Start Date End Date Kit Arriola MD [address] [address] PCP - General Emergency Medicine 12/19/18 documented as of this encounter
--- OUTSIDE RECORDS SUMMARY | 2024-02-17 13:55 | XMS_ITS | Encounter Summary ---
Author Organization [facility] Healthcare Address [address] [place] [address] Care Team Providers Care Singer And Unloader Name Role Phone Kit Arriola MD Primary Care Provider [phone] Encounter Details Date Type Department Care Team (Late st Contact Info) Description 03/13/2023 Patient Self-Triage [facility] HealthCare/ Physicians [address] [place] [address] Mychart, [facility] Provider [address] [place], [place] [id number] Social History Tobacco Use Types Packs/Day Years [...] often do you attend chur ch or quaker services? Never 05/18/2022 Do you belong to any clubs o r organizations such as congregation groups, unions, fraternal or athletic groups, or [...] in a longterm (including now)? No 05/18/2022 [place] Depression Scale Answer Date Recorded [place] Depression Scale Total 0 06/26/2022 The thought [...] on file Legal Sex Female 5:56 PM ALL SOURCE INTELLIGENCE TECHNICIAN Gender Identity Female 07/16/2022 10:05 AM CDT Sexual Orientation Straight 07/16/2022 10 :05 AM CDT documented as of this encounter Plan of Treatment Not on file documented as of this encounter Visit Diagnoses Not on filedocumented in this encounter Care Teams Singer And Unloader Relationship Specialty Start Date End Date Kit Arriola MD [address] [address] PCP - General Emergency Medicine 12/19/18 documented as of this encounter
--- OUTSIDE RECORDS SUMMARY | 2024-02-17 13:55 | XMS_ITS | Encounter Summary ---
Author Organization [facility] Healthcare Address [address] [place] [address] Care Team Providers Care Grey Goods Tester Name Role Phone Kit Arriola MD Primary Care Provider [phone] Encounter Details Date Type Department Care Team (Late st Contact Info) Description 10/15/2022 Patient Self-Triage [facility] HealthCare/ Physicians [address] [place] [address] Mychart, [facility] Provider [address] [place], [place] [id number] Social History Tobacco Use Types Packs/Day Years [...] often do you attend chur ch or lutheran services? Never 05/18/2022 Do you belong to any clubs o r organizations such as roman catholic groups, unions, fraternal or athletic groups, or [...] in a longterm (including now)? 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
--- OUTSIDE RECORDS SUMMARY | 2024-02-17 13:55 | XMS_ITS | Encounter Summary ---
Author Organization [facility] Address [address] [place] [address] Care Team Providers Care Bilingual Office Assistant Name Role Phone Kti Arriola MD Primary Care Provider [phone] Reason for Visit * Reason Comments Cough Encounter Details Date Type Department Care Team (Late st Contact Info) Description 10/19/2022 8:45 AM CDT Telemedicine [facility] Virtual Care [address] [place] [address] Jessica Mcgarry MD [address] [place] [address] [address] [place] [address] COVID-19 (Primary Dx); Acute cough; Nausea; Acute pharyngitis due to other specified organisms; Musculoskeletal pain; Fatigue, unspecified type; Diarrhea, unspecified type; Loss of taste Social History Tobacco Use Types Packs/Day Years [...] 05/18/2022 How often do you attend chur or restorationism services? Never 05/18/2022 Do you belong to any clubs o r organizations such as sikh groups, unions, fraternal or athletic groups, or [...] in a chcf (including now)? 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 Briseno, It was a pleasure speaking with you today. I've sent medication to the pharmacy you requested. Tessalon Perles- this is a cough medicine. It can be taken up to 3 times daily as needed for cough.If you don't have a cough, you don't need to take it. It should not make you sleepy or jittery. It is safe to take with hmds-jbj-rmitzlh cough medications if it does not control your cough enough on its own. Zofran- This is a medicine for nausea and vomiting. It can be taken up to 3 times daily as needed for nausea and vomiting. It's most common side effect is a dry mouth, dizziness and/or fatigue. Please finish the Paxlovid as instructed. If you have no improvement or worsening [...] meet your needs. Thank you for choosing [facility]! Hope you feel better soon! Jessica Mcgarry MD documented in this encounter Ordered Prescriptions Prescription Sig Dispense Quantity Refills Last Filled Start Date End Date ondansetron (ZOFRAN) 4 mg tablet Take 1 tablet (4 mg total) by mouth every 8 (eight) hours as needed for nausea or vomiting 40 tablet 10/19/2022 benzonatate (TESSALON) 200 mg capsule Take 1 capsule (200 mg total) by mouth 3 (three) times a day as needed for cough 60 capsule 10/19/2022 documented in this encounter Progress Notes * Jessica Mcgarry MD - 10/19/2022 8:45 AM CDT Images from the original note were not included. This was a telemedicine visit with Roxana Briseno alone which took place via real-time video connection with [facility]. During the visit, I was located at home and the patient was located at home in the state of [place]. The patient visit started at 0837 and ended at 0849. My total encounter time on 10/19/2022 was 23 minutes which was spent in the activities [...] is a 32 y.o. female. Chief Complaint Cough Pt did a video visit with the [facility] 4 days ago for COVID symptoms after testing COVID+. Pt was given Paxlovid. Pt's sx started 4 days ago and tested positive 4 days ago. Tolerating Paxlovid ok. Has one day left. Taking Tylenol and/or Ibuprofen for sx. States the note for return to work states she can return tomorrow, but pt states her symptoms are still bad enough that she feels shecan't got back to work yet. Still having bad cough, fevers- Tmax- 100.2 F, nausea, fatigue, body aches, diarrhea, loss of taste. Denies vomiting, chest pain, shortness of breath, wheezing. Cough This is a new problem. The current episode started in the past 7 days. The problem has been waxing and waning. The problem occurs every few minutes. The cough is Non-productive. Associated symptoms include chills, a fever, headaches, myalgias, nasal congestion, postnasal drip, rhinorrhea and a sorethroat. Pertinent negatives include no chest pain, ear congestion, ear pain, heartburn, hemoptysis,rash, shortness of breath, sweats, weight loss or wheezing. The symptoms are aggravated by exerciseand lying down. Treatments tried: Tylenol or Ibuprofen. The treatment provided mild relief. Her past medical history is significant for asthma. There is no history of bronchiectasis, bronchitis, COPD, emphysema, environmental allergies or pneumonia. Review of Systems Constitutional: Positive for chills and fever. Negative for weight loss. HENT: Positive for postnasal drip, rhinorrhea and sore throat. Negative for ear pain. Respiratory: Positive for cough. Negative for hemoptysis, shortness of breath and wheezing. Cardiovascular: Negative for chest pain. Gastrointestinal: Negative for heartburn. Musculoskeletal: Positive for myalgias. Skin: Negative for rash. Allergic/Immunologic: Negative for environmental allergies. Neurological: Positive for headaches. Physical Exam Vitals reviewed: Physical exam is limited by this being a telemedicine visit.. Constitutional: General: She is not in acute distress. Appearance: Normal appearance. She is not ill-appearing, toxic-appearing or diaphoretic. HENT: Head: Normocephalic and atraumatic. Right Ear: External ear normal. Left Ear: External ear normal. Nose: Nose normal. Mouth/Throat: Mouth: Mucous membranes are moist. Pharynx: No oropharyngeal exudate or posterior oropharyngeal erythema. Eyes: General: No scleral icterus. Right eye: No discharge. Left eye: No discharge. Extraocular Movements: Extraocular movements intact. Conjunctiva/sclera: Conjunctivae normal. Pupils: Pupils are equal, round, and reactive to light. Pulmonary: Effort: Pulmonary effort is normal. Comments: Pt was able to speak in full and complete sentences. Pt did cough a few times during the televisit, but no extended coughing episodes. Pt was not using accessory muscles to [...] and all orders for this visit: COVID-19 (U07.1) (Primary) Finish last day of Paxlovid. Patient is to self isolate for until patient has had symptoms for at least 5 [...] vomiting or diarrhea. Follow up with PCP. New letter provided for work. Pt is aware the [facility] is unable to offer [facility] paperworkor other paperwork that might be required for work. She'll need to talk to her her PCP. Acute cough (R05.1) Fortunato Richardson erx'ed to pharmacy. Instructed on use and possible side effects of the medicine. Ifany problems or questions or no improvement of symptoms in the next few days, please f/u w/ PCP. Ifsymptoms worsen, go to the ED. Pt verbalized understanding. Nausea (R11.0) Oly erx'ed to pharmacy. Instructed on use and possible side effects of the medicine. If any problems or questions or no improvement of symptoms in the next few days, please f/u w/ PCP. If symptomsworsen, go to the ED. Pt verbalized understanding. Acute pharyngitis due to other specified organisms (J02.8) Encouraged patient to maintain good hydration and rest. May use OTC meds as directed to treat symptoms. Reviewed s/sx to watch for poss bacterial infections including, but not limited to fever >101.9 F, worsening sx, wheezing, coughing or blowing out blaze red phlegm. If patient sees these or any other sx that are concerning, call PCP. Pt verbalizes understanding. Musculoskeletal pain (M79.18) Encouraged patient to maintain good hydration and rest. May use OTC meds as directed to treat symptoms. Reviewed s/sx to watch for poss bacterial infections including, but not limited to fever >101.9 F, worsening sx, wheezing, coughing or blowing out blaze red phlegm. If patient sees these or any other sx that are concerning, call PCP. Pt verbalizes understanding. Fatigue, unspecified type (R53.83) Encouraged patient to maintain good hydration and rest. May use OTC meds as directed to treat symptoms. Reviewed s/sx to watch for poss bacterial infections including, but not limited to fever >101.9 F, worsening sx, wheezing, coughing or blowing out blaze red phlegm. If patient sees these or any other sx that are concerning, call PCP. Pt verbalizes understanding. Diarrhea, unspecified type (R19.7) Encouraged patient to maintain good hydration and rest. May use OTC meds as directed to treat symptoms. Reviewed s/sx to watch for poss bacterial infections including, but not limited to fever >101.9 F, worsening sx, wheezing, coughing or blowing out blaze red phlegm. If patient sees these or any other sx that are concerning, call PCP. Pt verbalizes understanding. Loss of taste (R43.2) Other orders - benzonatate (TESSALON) 200 mg capsule; Take 1 capsule (200 mg total) by mouth 3 (three) times a day as needed for cough - ondansetron (ZOFRAN) 4 mg tablet; Take 1 tablet (4 mg total) by mouth every 8 (eight) hours as needed for nausea or vomiting Jessica Mcgarry MD documented in this encounter Plan of Treatment Not on file documented as of this encounter Visit Diagnoses Diagnosis COVID-19- Primary Acute cough Nausea Nausea alone Acute pharyngitis due to other specified organisms Musculoskeletal pain Unspecified myalgia and myositis Fatigue, unspecified type Diarrhea, unspecified type Loss of taste Disturbances of sensation of smell and taste documented in this encounter Care Teams Bilingual Office Assistant Relationship Specialty Start Date End Date Kit Arriola MD [address] [address] PCP - General Emergency Medicine 12/19/18 documented as of this encounter
--- OUTSIDE RECORDS SUMMARY | 2024-02-17 13:55 | XMS_ITS | Encounter Summary ---
Author Organization [facility] Address [address] [place] [address] Care Team Providers Care Wire Winding Machine Operator Name Role Phone iKt Arriola MD Primary Care Provider [phone] Reason for Visit * Reason Comments Headache Entered automaticall y based on patient selection in InCast. Encounter Details Date Type Department Care Team (Late st Contact Info) Description 04/21/2023 7:25 AM CDT E-Visit [facility] Virtual Care [address] [place] [address] Alexia Ramsey NP [address] [place] [address] Your Medications Social History Tobacco [...] often do you attend chur ch or roman catholic services? Never 05/18/2022 Do you belong to any clubs o r organizations such as sabianist groups, unions, fraternal or athletic groups, or [...] place to sleep or slept in a half-way (including now)? 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 Gender Identity Female 07/16/2022 10:05 AM CDT Sexual Orientation Straight 07/16/2022 10 :05 AM CDT documented as of this encounter Ordered Prescriptions Prescription Sig Dispense Quantity Refills Last Filled Start Date End Date lidocaine viscous (XYLOCAINE) 2 % solution Take 5 mL by mouth every 4 (four) hours as needed (for mouth/throat pain) for up to 7 days Swish and spit 100 mL 04/21/2023 04/28/2023 amoxicillin (AMOXIL) 875 mg tablet Take 1 tablet (875 mg total) by mouth 2 (two) times a day for 10 days 20 tablet 04/21/2023 05/01/2023 documented in this encounter Miscellaneous Notes * E-Visit Note - Alexia Ramsey NP - 04/21/2023 7:25 AM CDT Images from the original note were not included. Roxana Briseno 04/21/2023 E-Visit Submission Subjective/Objective: Roxana Briseno contacted the office today via e-visit for Headache. The patient-submitted questionnaire was assessed for pertinent information and the patient's problem list, medication list, and allergies were reviewed as part of the e-visit. The chart was updated to identify any changes in these areas. Assessment: Diagnosis Plan 1. Toothache 2. Mouth pain Plan: The patient was given information regarding any new medication(s) prescribed, if applicable, as well as any uyku-rqs-umhkvht remedies. She was given instructions regarding follow up and timeframe if symptoms worsen or don???t improve. These instructions were included in the InCast message reply tothe patient. Patient Instructions were included in the message reply to patient. My total encounter time on 04/21/2023 was 5 minutes which was spent in the activities documented inthe note. New Medications Ordered This Visit amoxicillin (AMOXIL) 875 mg tablet Sig: Take 1 tablet (875 mg total) by mouth 2 (two) times a day for 10 days Dispense: 20 tablet Refill: 0 lidocaine viscous (XYLOCAINE) 2 % solution Sig: Take 5 mL by mouth every 4 (four) hours as needed (for mouth/throat pain) for up to 7 days Swish and spit Dispense: 100 mL Refill: 0 Alexia Ramsey NP documented in this encounter Plan of Treatment Not on file documented as of this encounter Visit Diagnoses Diagnosis Toothache- Primary Unspecified disorder of the teeth and supporting structures Mouth pain Other and unspecified diseases of the oral soft tissues documented in this encounter Care Teams Wire Winding Machine Operator Relationship Specialty Start Date End Date Kit Arriola MD [address] [address] PCP - General Emergency Medicine 12/19/18 documented as of this encounter
--- OUTSIDE RECORDS SUMMARY | 2024-02-17 13:55 | XMS_ITS | Encounter Summary ---
Author Organization [facility] Healthcare Address [address] [place] [address] Care Team Providers Care Railroad Signal Operator Name Role Phone Kit Arriola MD Primary Care Provider [phone] Encounter Details Date Type Department Care Team (Late st Contact Info) Description 04/21/2023 Patient Self-Triage [facility] HealthCare/ Physicians [address] [place] [address] Mychart, [facility] Provider [address] [place], [place] [id number] Social History Tobacco Use Types Packs/Day Years [...] often do you attend chur ch or gnosticism services? Never 05/18/2022 Do you belong to any clubs o r organizations such as oriental orthodox groups, unions, fraternal or athletic groups, or [...] to sleep or slept in a senior care (including now)? No 05/18/2022 [place] Depression Scale Answer Date Recorded [place] Depression Scale Total 0 06/26/2022 The thought [...] on file Legal Sex Female 5:56 PM HIM ASSISTANT Gender Identity Female 07/16/2022 10:05 AM CDT Sexual Orientation Straight 07/16/2022 10 :05 AM CDT documented as of this encounter Plan of Treatment Not on file documented as of this encounter Visit Diagnoses Not on filedocumented in this encounter Care Teams Railroad Signal Operator Relationship Specialty Start Date End Date Kit Arriola MD [address] [address] PCP - General Emergency Medicine 12/19/18 documented as of this encounter
--- OUTSIDE RECORDS SUMMARY | 2024-02-17 13:55 | XMS_ITS | Encounter Summary ---
Author Organization [facility] Healthcare Address [address] [place] [address] Care Team Providers Care Link Assembler Name Role Phone Kit Arriola MD Primary Care Provider [phone] Encounter Details Date Type Department Care Team (Late st Contact Info) Description 10/18/2022 Patient Self-Triage [facility] HealthCare/ Physicians [address] [place] [address] Mycernestinet, [facility] Provider [address] [place], [place] [phone] Social History Tobacco Use Types Packs/Day Years [...] often do you attend chur ch or confucianism services? Never 05/18/2022 Do you belong to any clubs o r organizations such as pentecostal groups, unions, fraternal or athletic groups, or [...] in a residential (including now)? No 05/18/2022 [place] Depression Scale Answer Date Recorded [place] Depression Scale Total 0 06/26/2022 The thought [...] on file Legal Sex Female 5:56 PM FABRICATION MIG WELDER Gender Identity Female 07/16/2022 10:05 AM CDT Sexual Orientation Straight 07/16/2022 10 :05 AM CDT documented as of this encounter Plan of Treatment Not on file documented as of this encounter Visit Diagnoses Not on filedocumented in this encounter Care Teams Link Assembler Relationship Specialty Start Date End Date Kit Arriola MD [address] [address] PCP - General Emergency Medicine 12/19/18 documented as of this encounter
--- OUTSIDE RECORDS SUMMARY | 2024-02-17 13:55 | XMS_ITS | Encounter Summary ---
Author Organization [facility] Address [address] [place] [address] Care Team Providers Care Rapid Outsole Stitcher Name Role Phone Kit Arriola MD Primary Care Provider [phone] Encounter Details Date Type Department Care Team (Late st Contact Info) Description 04/26/2023 Patient Self-Triage [facility] HealthCare/ Physicians [address] [place] [address] Mychart, [facility] Provider [address] [place], [place] [phone] Social History Tobacco Use Types Packs/Day Years [...] often do you attend chur ch or rastafari services? Never 05/18/2022 Do you belong to [...] place to sleep or slept in a skilled nursing (including now)? No 05/18/2022 [place] Depression Scale Answer Date Recorded [place] Depression Scale Total 0 06/26/2022 The thought [...] on file Legal Sex Female 5:56 PM CHIEF VENDOR QUALITY Gender Identity Female 07/16/2022 10:05 AM CDT Sexual Orientation Straight 07/16/2022 10 :05 AM CDT documented as of this encounter Plan of Treatment Not on file documented as of this encounter Visit Diagnoses Not on filedocumented in this encounter Care Teams Rapid Outsole Stitcher Relationship Specialty Start Date End Date Kit Arriola MD [address] [address] PCP - General Emergency Medicine 12/19/18 documented as of this encounter
--- OUTSIDE RECORDS SUMMARY | 2024-02-17 13:55 | XMS_ITS | Encounter Summary ---
Author Organization [facility] Healthcare Address [address] [place] [address] Care Team Providers Care Carpenter Assistant Name Role Phone Kit Arriola MD Primary Care Provider [phone] Encounter Details Date Type Department Care Team (Late st Contact Info) Description 02/19/2023 Patient Self-Triage [facility] HealthCare/ Physicians [address] [place] [address] Mychart, [facility] Provider [address] [place], [place] [phone] Social History Tobacco Use Types Packs/Day Years [...] often do you attend chur ch or anabaptism services? Never 05/18/2022 Do you belong to [...] a senior living (including now)? No 05/18/2022 [place] Depression Scale Answer Date Recorded [place] Depression Scale Total 0 06/26/2022 The thought [...] on file Legal Sex Female 5:56 PM SPINDLE TESTER Gender Identity Female 07/16/2022 10:05 AM CDT Sexual Orientation Straight 07/16/2022 10 :05 AM CDT documented as of this encounter Plan of Treatment Not on file documented as of this encounter Visit Diagnoses Not on filedocumented in this encounter Care Teams Carpenter Assistant Relationship Specialty Start Date End Date Kit Arriola MD [address] [address] PCP - General Emergency Medicine 12/19/18 documented as of this encounter
--- OUTSIDE RECORDS SUMMARY | 2024-02-17 13:55 | XMS_ITS | Encounter Summary ---
Author Organization [facility] Healthcare Address [address] [place] [address] Care Team Providers Care Pulp Mixer Name Role Phone Kit Arriola MD Primary Care Provider [phone] Encounter Details Date Type Department Care Team (Late st Contact Info) Description 03/13/2023 3:15 PM PEOPLE MANAGER Telemedicine [facility] Virtual Care [address] [place] [address] Kristen Smart, SOLAR WATER HEATER INSTALLER [address] [place], [place] [phone] Nausea and vomiting, unspecified vomiting type (Primary Dx) Social History Tobacco Use Types [...] often do you attend chur ch or adventism services? Never 05/18/2022 Do you belong to any clubs o r organizations such as zoroastrianism groups, unions, fraternal or athletic groups, or [...] place to sleep or slept in a prison (including now)? No 05/18/2022 [place] Depression Scale Answer Date Recorded [place] Depression Scale Total 0 06/26/2022 The thought [...] on file Legal Sex Female 5:56 PM PEOPLE MANAGER Gender Identity Female 07/16/2022 10:05 AM CDT Sexual Orientation Straight 07/16/2022 10 :05 AM CDT documented as of this encounter Patient Instructions * Patient Instructions* Kristen Smart NP - 03/13/2023 3:15 PM PEOPLE MANAGER It was great to meet you and I hope you feel better soon! I have included my recommendations below.Please reach out if you have any questions or concerns. Take care! Kristen Smart NP Compazine sent to pharmacy for nausea/vomiting-take 1 tablet 3 times a day as needed. Take 30 minutes prior to a meal [place] diet and small frequent meals encouraged-avoid spicy, acidic, fried foods Increase fluid intake-encouraged gatorade/pedialyte as well Follow up in person with primary care provider, at one of our [facility] convenient cares, or at a local urgent care if symptoms fail to improve in 2-3 days, sooner if they worsen or if you are unable to keep fluids down Work note sent via [employer] LE MANAGER documented in this encounter Ordered Prescriptions Prescription Sig Dispense Quantity Refills Last Filled Start Date End Date prochlorperazine (Compazine) 10 mg tabletIndications: Nausea and Vomiting Take 1 tablet (10 mg total) by mouth every 8 (eight) hours as needed for nausea or vomiting for up to 10 days 20 tablet 03/13/2023 documented in this encounter Progress Notes * Kristen Smart NP - 03/13/2023 3:15 PM CST Images from the original note were not included. This was a telemedicine visit with Roxana majano which took place via real-time video connection. During the visit, I was located at home and the patient was located at home in the state of [place]. The patient visit started at 1520 and ended at 1527. My total encounter time on 03/13/2023 was 10 minutes which was spent in the activities [...] Roxana Briseno is a 33 y.o. female. GI Problem The primary symptoms include abdominal pain, nausea, vomiting and diarrhea. Episode onset: Patient reports running slight fever and notes nausea, vomiting, diarrhea, lightheadedness. Started last night. Unable to keep fluids down. Also notes sharp pain in side as well and lower back. Needs doctor'snote. Risk factors: Notes no sick contacts. Review of Systems Gastrointestinal: Positive for abdominal pain, diarrhea, nausea and vomiting. Physical Exam Constitutional: Appearance: Normal appearance. Pulmonary: Effort: Pulmonary effort is normal. Neurological: General: No focal deficit present. Mental Status: She is alert and oriented to person, place, and time. Psychiatric: Mood and Affect: Mood normal. Behavior: Behavior normal. Thought Content: Thought content normal. Judgment: Judgment normal. Assessment/Plan Diagnoses and all orders for this visit: Nausea and vomiting, unspecified vomiting type (Primary) - prochlorperazine (Compazine) 10 mg tablet; Take 1 tablet (10 mg total) by mouth every 8 (eight) hours as needed for nausea or vomiting for up to 10 days Compazine sent to pharmacy for nausea/vomiting-take 1 tablet 3 times a day as needed. Take 30 minutes prior to a meal [place] diet and small frequent meals encouraged-avoid spicy, acidic, fried foods Increase fluid intake-encouraged gatorade/pedialyte as well Follow up in person with primary care provider, at one of our [facility] convenient cares, or at a local urgent care if symptoms fail to improve in 2-3 days, sooner if they worsen or if you are unable to keep fluids down Work note sent via Inductly Kristen Smart NP LE MANAGER documented in this encounter Plan of Treatment Not on file documented as of this encounter Visit Diagnoses Diagnosis Nausea and vomiting, unspecified vomiting type- Primary documented in this encounter Care Teams Pulp Mixer Relationship Specialty Start Date End Date Kit Arriola MD [address] [address] PCP - General Emergency Medicine 12/19/18 documented as of this encounter
--- OUTSIDE RECORDS SUMMARY | 2024-02-17 13:55 | XMS_ITS | Encounter Summary ---
Author Organization [facility] Address [address] [place] [address] Care Team Providers Care Lay Health Advocate Name Role Phone Kit Arriola MD Primary Care Provider [phone] Reason for Visit * Reason Comments Earache Encounter Details Date Type Department Care Team (Late st Contact Info) Description 01/27/2023 9:00 PM MORTUARY TECHNICIAN Telemedicine [facility] [address] [place] [address] Alexia Ramsey NP [address] [place] [address] Left ear pain (Primary Dx); Drainage from left ear Social History Tobacco Use Types Packs/Day Years [...] place to sleep or slept in a care home (including now)? No 05/18/2022 [place] Depression Scale Answer Date Recorded [place] Depression Scale Total 0 06/26/2022 The thought [...] on file Legal Sex Female 5:56 PM MORTUARY TECHNICIAN Gender Identity Female 07/16/2022 10:05 AM CDT Sexual Orientation Straight 07/16/2022 10 :05 AM CDT documented as of this encounter Patient Instructions * Patient Instructions* Alexia Ramsey NP - 01/27/2023 9:00 PM MORTUARY TECHNICIAN Follow up with PCP or visit [facility] in 3 days if no improvement or sooner if worsens. You can find locations and schedule an appointment online at [email or web address] We are committed to providing excellent patient care. You may receive a survey via email, phone, or text about your visit today. If you cannot rate your experience as excellent, please let us know how we can better meet your expectations UARY TECHNICIAN * Attachments The following attachments cannot be sent through Care Everywhere. * Earache (Cane Weigher) (Prydeinig) documented in this encounter Ordered Prescriptions Prescription Sig Dispense Quantity Refills Last Filled Start Date End Date ciprofloxacin-dexA METHasone (CIPRODEX) otic suspension Administer 4 drops into the left ear 2 (two) times a day for 7 days 7.5 mL 01/27/2023 3 documented in this encounter Progress Notes * Alexia Ramsey NP - 01/27/2023 9:00 PM CST Images from the original note were not included. [facility] Virtual Care On-Demand Video Visit This was a telemedicine visit with Roxana majano which took place via real-time video connection with [facility]. During the visit, I was located at home and the patient was located at home in the [facility]. The patient visit started at 2044 and ended at 2049. My total encounter time on 01/27/2023 was 8 minutes which was spent in the activities documented in the note. This includes timespent prior to the visit and after the visit in direct care of the patient. This time does not include time spent in any separately reportable services.. The patient has been informed that the visit may not be secure and acknowledged the information. I have explained the option of participating in a telephone or video visit during the COVID-19 public [facility] emergency to the patient. After being given an opportunity to ask questions about and discuss this type of visit, the patient verbally consented to proceeding with the telephone/video visit.The patient understands that this service replaces an office visit and they may be billed and/or responsible for any applicable copayments. Subjective/Objective Patient ID: Roxana Briseno is a 32 y.o. female. Chief Complaint Chief Complaint Patient presents with Earache HPI Presents via video visit with c/o ear pain and ear drainage. Reports 2-3 days of left ear pain thatis worse with movement of earlobe and drainage from ear. Reports developing runny nose afterwards. Earache There is pain in the left ear. This is a new problem. The current episode started in the past 7 days. The problem occurs constantly. The problem has been gradually worsening. There has been no fever.The pain is severe. Associated symptoms include ear discharge and rhinorrhea. Pertinent negatives include no coughing, headaches, hearing loss, sore throat or vomiting. She has tried NSAIDs and acetaminophen for the symptoms. The treatment provided mild relief. There is no history of a chronic ear infection, hearing loss or a tympanostomy tube. Past Medical History: Diagnosis Date History of ectopic Past Surgical History: Procedure Laterality Date SECTION 05/15/2022 ECTOPIC SURGERY US ABDOMEN COMPLETE W LIVER DOPPLER (C) Right 11/12/2017 US ABDOMEN COMPLETE W LIVER DOPPLER (C) Right 11/13/2017 No family history on file. Social History Tobacco Use Smoking status: Never Smokeless tobacco: Never Substance and Sexual Activity Drug use: Never Sexual activity: Yes Partners: Male control/protection: None Alcohol Use: Not At Risk (05/14/2022) AUDIT-C Frequency of Alcohol Consumption: Never Average Number of Drinks: Patient does not drink Frequency of Binge Drinking: Never HOME MEDICATIONS : albuterol HFA (PROVENTIL HFA,VENTOLIN HFA,PROAIR HFA) 90 mcg/actuation inhaler benzonatate (TESSALON) 200 mg capsule ciprofloxacin-dexAMETHasone (CIPRODEX) otic suspension metFORMIN (GLUCOPHAGE) 500 mg tablet norethindrone-ethinyl estradiol-iron (Loestrin Fe 1.5/30, 28-Day,) 1.5 mg-30 mcg per tablet ondansetron (ZOFRAN) 4 mg tablet Allergies Allergen Reactions Bactrim [Sulfamethoxazole-Trimethoprim] Hives Latex Hives Hives Morphine Hives and Itching Itching Vancomycin Hives Itching Tramadol Itching Review of Systems Constitutional: Negative for chills and fever. HENT: Positive for ear discharge, ear pain and rhinorrhea. Negative for congestion, hearing loss and sore throat. Respiratory: Negative for cough. Gastrointestinal: Negative for nausea and vomiting. Neurological: Negative for headaches. There were no vitals taken for this visit. Physical Exam Constitutional: General: She is not in acute distress. Appearance: She is not ill-appearing or toxic-appearing. Pulmonary: Effort: Pulmonary effort is normal. No respiratory distress. Neurological: Mental Status: She is alert and oriented to person, place, and time. Exam limited d/t nature of visit. Diagnoses and all orders for this visit: Left ear pain (Primary) Start Ciprodex. Okay to alternate Ibuprofen 800mg TID with Tylenol 1gm TID prn pain. Follow up with PCP or visit [facility] in 3 days if no improvement or sooner if worsens. Drainage from left ear Other orders - ciprofloxacin-dexAMETHasone (CIPRODEX) otic suspension; Administer 4 drops into the left ear 2 (two) times a day for 7 days Alexia Ramsey, DNP, MEASUREMENT OPERATOR, E LEARNING DESIGNER-C UARY TECHNICIAN documented in this encounter Plan of Treatment Not on file documented as of this encounter Visit Diagnoses Diagnosis Left ear pain- Primary Unspecified otalgia Drainage from left ear documented in this encounter Care Teams Lay Health Advocate Relationship Specialty Start Date End Date Kit Arriola MD [address] [address] PCP - General Emergency Medicine 12/19/18 documented as of this encounter
--- OUTSIDE RECORDS SUMMARY | 2024-02-17 13:55 | XMS_ITS | Encounter Summary ---
Author Organization [facility] Address [address] [place] [address] Care Team Providers Care Power Mule Operator Name Role Phone Kit Arriola MD Primary Care Provider [phone] Encounter Details Date Type Department Care Team (Late st Contact Info) Description 02/19/2023 Patient Self-Triage [facility] HealthCare/ Physicians [address] [place] [address] Mychart, [facility] Provider [address] [place], [place] [id number] Social History Tobacco Use Types Packs/Day Years [...] often do you attend chur ch or synagogue services? Never 05/18/2022 Do you belong to [...] a skilled nursing (including now)? No 05/18/2022 [place] Depression Scale Answer Date Recorded [place] Depression Scale Total 0 06/26/2022 The thought [...] on file Legal Sex Female 5:56 PM SLEEVE MAKER Gender Identity Female 07/16/2022 10:05 AM CDT Sexual Orientation Straight 07/16/2022 10 :05 AM CDT documented as of this encounter Plan of Treatment Not on file documented as of this encounter Visit Diagnoses Not on filedocumented in this encounter Care Teams Power Mule Operator Relationship Specialty Start Date End Date Kit Arriola MD [address] [address] PCP - General Emergency Medicine 12/19/18 documented as of this encounter
--- OUTSIDE RECORDS SUMMARY | 2024-02-17 13:55 | XMS_ITS | Encounter Summary ---
Author Organization [facility] Address [address] [place] [address] Care Team Providers Care Pole Shaver Name Role Phone Kit Arriola MD Primary Care Provider [phone] Encounter Details Date Type Department Care Team (Late st Contact Info) Description 03/26/2023 Patient Self-Triage [facility] HealthCare/ Physicians [address] [place] [address] Mychart, [facility] Provider [address] [place], [place] [id number] Social History Tobacco Use Types Packs/Day Years [...] often do you attend chur ch or islam services? Never 05/18/2022 Do you belong to any clubs o r organizations such as yarsani groups, unions, fraternal or athletic groups, or [...] place to sleep or slept in a snf (including now)? No 05/18/2022 [place] Depression Scale Answer Date Recorded [place] Depression Scale Total 0 06/26/2022 The thought [...] on file Legal Sex Female 5:56 PM HORTICULTURALIST Gender Identity Female 07/16/2022 10:05 AM CDT Sexual Orientation Straight 07/16/2022 10 :05 AM CDT documented as of this encounter Plan of Treatment Not on file documented as of this encounter Visit Diagnoses Not on filedocumented in this encounter Care Teams Pole Shaver Relationship Specialty Start Date End Date Kit Arriola MD [address] [address] PCP - General Emergency Medicine 12/19/18 documented as of this encounter
--- OUTSIDE RECORDS SUMMARY | 2024-02-17 13:55 | XMS_ITS | Encounter Summary ---
Author Organization [facility] Address [address] [place] [address] Care Team Providers Care Education Technician Name Role Phone Kit Arriola MD Primary Care Provider [phone] Encounter Details Date Type Department Care Team (Late st Contact Info) Description 01/27/2023 Patient Self-Triage [facility] HealthCare/ Physicians [address] [place] [address] My[address], [facility] Provider [address] [place], [place] [phone] Social History Tobacco Use Types Packs/Day Years [...] often do you attend chur ch or oriental orthodox services? Never 05/18/2022 Do you belong to any clubs o r organizations such as methodist groups, unions, fraternal or athletic groups, or [...] in a longterm (including now)? No 05/18/2022 [place] Depression Scale Answer Date Recorded [place] Depression Scale Total 0 06/26/2022 The thought [...] on file Legal Sex Female 5:56 PM TRACK REPAIR LABORER Gender Identity Female 07/16/2022 10:05 AM CDT Sexual Orientation Straight 07/16/2022 10 :05 AM CDT documented as of this encounter Plan of Treatment Not on file documented as of this encounter Visit Diagnoses Not on filedocumented in this encounter Care Teams Education Technician Relationship Specialty Start Date End Date Kit Arriola MD [address] [address] PCP - General Emergency Medicine 12/19/18 documented as of this encounter
--- OUTSIDE RECORDS SUMMARY | 2024-02-17 13:56 | XMS_ITS | Encounter Summary ---
Author Organization [facility] Address [address] [place] [address] Phone Care Team Providers Care Director Engineering Name Role Phone Kit Arriola MD Primary Care Provider [phone] Reason for Visit * Reason Comments Routine Visit Encounter Details Date Type Department Care Team (Late st Contact Info) Description 03/15/2022 12:45 PM UNINDENTURED APPRENTICE Office Visit [facility] Obstetrics and Gynecology [address] [facility] Outpatient Health 7th Floor [address] [place] [address] Vale Moreno, TEST ENGINE EVALUATOR [address] [facility] [phone] [place] [address] Supervision of other normal , antepartum (Primary Dx) Social History Tobacco Use Types Packs/Day Years Used Date Smoking Tobacco: Never Smokeless Tobacco: Never Tobacco Cessation:Counseling Given: Not Answered AUDIT-C Answer Date Recorded Q1: How often do you have a drink containing alcohol? Never 11/21/2021 Q2: How many drinks containi ng alcohol do you have on a typical day when you are drinking? Patient does not drink Frequency of Binge Drinking Not on file 11/05 Comments Yes Sex and Gender Information Value Date Recorded Sex Assigned at Not on file Legal Sex Female 5:56 PM UNINDENTURED APPRENTICE Gender Identity Female 07/16/2022 10:05 AM CDT Sexual Orientation Straight 07/16/2022 10 :05 AM CDT documented as of this encounter Last Filed Vital Signs Vital Sign Reading Time Taken Comments Blood Pressure 112/81 03/15/2022 12:45 PM UNINDENTURED APPRENTICE Pulse - - Temperature - - Respiratory Rate - - Oxygen Saturation - - Inhaled Oxygen Concentration - - Weight 85.5 kg (188 lb 6.4 oz) 03/15/2022 12:45 PM UNINDENTURED APPRENTICE Height 165.1 cm (5' 5 ) 03/15/2022 12:45 PM UNINDENTURED APPRENTICE Body Mass Index 31.35 03/15/2022 12:45 PM UNINDENTURED APPRENTICE documented in this encounter Progress Notes * Vale Moreno NP - 03/15/2022 12:45 PM CST ARCHIE visit: Seen @[facility] on 03/08 for contractions. Cx closed/25% by TEST ENGINE EVALUATOR exam at that time. --pt reports still has daily contractions but not worsening. --she admits she is only drinking 1-2 bottles of water(16oz). Encouraged to increase water intake 3-4 bottles of water. --PTL precautions --this baby growth per last US@86%. G1 weight 6# delivered on the due date. So this could be a little bit bigger baby. Reports +GM Marginal cord insertion and next serial Us on 03/29/22. RTO 2 weeks Vale Moreno NP DENTURED APPRENTICE documented in this encounter Plan of Treatment Not on file documented as of this encounter Visit Diagnoses Diagnosis Supervision of other normal , antepartum- Primary documented in this encounter Care Teams Director Engineering Relationship Specialty Start Date End Date Kit Arriola MD [address] [place] [address] PCP - General Emergency Medicine 12/19/18 documented as of this encounter
--- OUTSIDE RECORDS SUMMARY | 2024-02-17 13:56 | XMS_ITS | Encounter Summary ---
Author Organization [facility] Healthcare Address [address] [place] [address] Care Team Providers Care Tooth Cutter Spur Name Role Phone Kit Arriola MD Primary Care Provider [phone] Encounter Details Date Type Department Care Team (Late st Contact Info) Description 07/03/2022 Patient Self-Triage [facility] HealthCare/ Physicians [address] [place] [address] Mychart, [facility] Provider [address] [place], [place] [address] Social History Tobacco Use Types Packs/Day Years [...] any clubs o r organizations such as temple groups, unions, fraternal or athletic groups, or [...] a skilled nursing (including now)? 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
--- OUTSIDE RECORDS SUMMARY | 2024-02-17 13:56 | XMS_ITS | Encounter Summary ---
Author Organization [facility] Address [address] [place] [address] Phone Care Team Providers Care Java Project Manager Name Role Phone Kit Arriola MD Primary Care Provider [phone] Reason for Referral * (Routine) - Closed Specialty Diagnoses / Procedures Referred By Contac t Referred To Contact Diagnoses resulting from in vitro fertilization, antepartum Procedures nonstress test - Marylin Rene MD [address] [place] [address] [phone] [place] [address] Phone: tel: fax: [facility] (All Locations) Referral ID Status Reason Start Date Expiration Date Visits Re quested Visits Authorized [id number] Closed 05/10/2022 06/09/2023 1 1 Reason for Visit * Reason Comments Non-stress Test Encounter Details Date Type Department Care Team (Latest Contact Info) Description 05/10/2022 3:00 PM CDT Clinical Support [facility] Obstetrics and Gynecology [address] [place] [address] Health 7th [place] [address] resulting from in vitro fertilization, antepartum (Primary Dx) Social History Tobacco Use Types Packs/Day Years Used Date Smoking Tobacco: Never Smokeless Tobacco: Never AUDIT-C Answer Date Recorded Q1: How often [...] on file 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 Gender Identity Female 07/16/2022 10:05 AM CDT Sexual Orientation Straight 07/16/2022 10 :05 AM CDT documented as of this encounter Last Filed Vital Signs Vital Sign Reading Time Taken Comments Blood Pressure 123/88 05/10/2022 3:03 PM CDT Pulse - - Temperature - - Respiratory Rate - - Oxygen Saturation - - Inhaled Oxygen Concentration - - Weight - - Height - - Body Mass Index - - documented in this encounter Plan of Treatment Not on file documented as of this encounter Procedures Procedure Name Priority Date/Time Associated Diagnosis Comments NONSTRESS TEST Routine 05/10/2022 resulting from in vitro fertilization, antepartum documented in this encounter Results * nonstress test - (05/10/2022) us Marylin Rene MD OB GYNE ORDERABLES Miryam l Result documented in this encounter Visit Diagnoses Diagnosis resulting from in vitro fertilization, antepartum- Primary documented in this encounter Care Teams Java Project Manager Relationship Specialty Start Date End Date Kit Arriola MD [address] [address] PCP - General Emergency Medicine 12/19/18 documented as of this encounter
--- OUTSIDE RECORDS SUMMARY | 2024-02-17 13:56 | XMS_ITS | Encounter Summary ---
Author Organization [facility] Address [address] [place] [address] Phone Care Team Providers Care Copy Writer Name Role Phone Kit Arriola MD Primary Care Provider [phone] Reason for Visit * Reason Comments Routine Visit Encounter Details Date Type Department Care Team (Late st Contact Info) Description 04/26/2022 12:45 PM CDT Office Visit [facility] Obstetrics and Gynecology [address] [facility] Outpatient Health 7th Floor [address] [place] [address] Vale Moreno, DUMP GRADER [address] [facility] [phone] [place] [address] Supervision of other normal , [...] on file Legal Sex Female 5:56 PM [employer] Gender Identity Female 07/16/2022 10:05 AM CDT Sexual Orientation Straight 07/16/2022 10 :05 AM CDT documented as of this encounter Last Filed Vital Signs Vital Sign Reading Time Taken Comments Blood Pressure 127/87 04/26/2022 12:40 PM CDT Pulse - - Temperature - - Respiratory Rate - - Oxygen Saturation - - Inhaled Oxygen Concentration - - Weight 86.2 kg (190 lb) 04/26/2022 12:40 PM CDT Height 165.1 cm (5' 5 ) 04/26/2022 12:40 PM CDT Body Mass Index 31.62 04/26/2022 12:40 PM CDT documented in this encounter Progress Notes * Vale Moreno NP - 04/26/2022 12:45 PM CDT ARCHIE visit: Growth Us today==EFW@94%/normal AME/vertex/7#12oz Pt having good FM +new Has. No prior hx of Has. Normal BP today. --recommend Tylenol XS x2 q 4 hour Scheduled for eIOL on 05/14/22 GBS culture collected and sent 3rd tri labs ordered @[facility]/pt instructed to get them done 3rd educ folder given RTO 1 week Vale Moreno NP documented in this encounter Plan of Treatment Not on file documented as of this encounter Procedures Procedure Name Priority Date/Time Associated Diagnosis Comments HIV 1/2 ANTIBODY PLUS P24 ANTIGEN Routine 04/28/2022 11:52 AM CDT Supervision of other normal , antepartum CBC WITH AUTO DIFFERENTIAL Routine 04/28/2022 11:52 AM CDT Supervision of other normal , antepartum GROUP B STREPTOCOCCUS CULTURE Routine 04/26/2022 12:59 PM CDT Supervision of other normal , antepartum documented in this encounter Results * HIV 1/2 Antibody plus p24 Antigen Blood (04/28/2022 11:52 AM CDT) HIV Ag/Ab, 4th gen NON-REACT SHIMA NON-REACT SHIMA [facility] Comment: HIV-1 antigen and HIV-1/HIV-2 antibodies were not detected. There is no laboratory evidence of HIV infection. PLEASE NOTE: This information has been disclosed to you from records whose confidentiality may be protected by state law. ??If your state requires such protection, then the state law prohibits you from making any further disclosure of the information without the specific written consent of the person to whom it pertains, or as otherwise permitted by law. A general authorization for the release of medical or other information is NOT sufficient for this purpose. ?? For additional information please refer to http://education.NetLex/faq/WQU278 (This link is being provided for informational/ educational purposes only.) The performance of this assay has not been clinically validated in patients less than 2 years old. Blood 04/28/2022 11:5 2 AM CDT 04/28/2022 11:53 AM CDT Narrative [facility] - 04/29/2022 6:33 AM CDT FASTING:NO FASTING: NO Vale Moreno DUMP GRADER LAB MICROBIOLOGY - GENERAL ORDERABLES Final Result [facility] [address] [place] [address] * (ABNORMAL) CBC with auto differential (04/28/2022 11:52 AM CDT) WBC 13.1(H) 3.8 - 10.8 Thousand /uL [facility] RBC, POC 3.99 3.80 - 5.10 Million/ uL [facility] Hgb 11.1(L) 11.7 - 15.5 g/dL [facility] Hct 32.8(L) 35.0 - 45.0 % [facility] MCV 82.2 80.0 - 100.0 fL [facility] MCH 27.8 27.0 - 33.0 pg [facility] MCHC 33.8 32.0 - 36.0 g/dL [facility] Rdw 13.1 11.0 - 15.0 % [facility] Platelets 355 140 - 400 Thousand /uL [facility] MPV 10.6 7.5 - 12.5 fL [facility] Neutrophils, abs 9,825(H) 1,500 - 7,800 cells/uL [facility] Neutrophil bands, abs 9,956(H) 0 - 750 cells/uL [facility] Myelocytes, abs 131(H) 0 cells/uL [facility] Lymphocytes, abs 2,096 850 - 3,900 cells/uL [facility] Monocyte abs 655 200 - 950 cells/uL [facility] Eosinophils, abs 131 15 - 500 cells/uL [facility] Basophils, abs 131 0 - 200 cells/uL [facility] Neutrophils 75 % [facility] Neutrophilic bands 76 % [facility] Myelocyte pct 1(H) % [facility] Lymphocyte pct 16 % [facility] Monocytes 5 % [facility] Eosinophils 1 % [facility] Basophils 1 % [facility] Comment The smear has been manually reviewed and the manual differential has been reported. [facility] Blood 04/28/2022 11:5 2 AM CDT 04/28/2022 11:53 AM CDT Narrative [facility] - 04/29/2022 6:33 AM CDT FASTING:NO FASTING: NO Vale Moreno DUMP GRADER LAB BLOOD ORDERABLES Final Result [facility] [address] [facility] [place] [address] * (ABNORMAL) Group B streptococcal culture Vaginal/Rectal (04/26/2022 12:59 PM CDT) Strep B culture, resp (A) [facility] Comment: ??STREPTOCOCCUS, GROUP B CULTURE ?Micro Number: ?[id number] ??Test Status: ? Final ??Specimen Source: ?? Vaginal/rectal ??Specimen Quality: ??Adequate ??Result: ?Group B Streptococcus isolated ? Beta-hemolytic streptococci are predictably ? susceptible to Penicillin and other beta-lactams. ? Susceptibility testing not routinely performed. ? Please contact the laboratory within 3 days if ? susceptibility testing is desired. ? Note per CDC guidelines optimal recovery is ? achieved by swabbing both the lower vagina and ? rectum (through the anal sphincter). Vaginal/Rectal 04/26/2022 12 :59 PM CDT 04/26/2022 10:49 PM CDT Vale Moreno DUMP GRADER LAB MICROBIOLOGY - GENERAL ORDERABLES Final Result Performing Organization Address City/State/[facility] Co de Phone Number [facility] [address] [place] [address] documented in this encounter Visit Diagnoses Diagnosis Supervision of other normal , antepartum- Primary documented in this encounter Care Teams Copy Writer Relationship Specialty Start Date End Date Kit Arriola MD [address] [address] PCP - General Emergency Medicine 12/19/18 documented as of this encounter
--- OUTSIDE RECORDS SUMMARY | 2024-02-17 13:56 | XMS_ITS | Encounter Summary ---
Author Organization [facility] Healthcare Address [address] [place] [address] Care Team Providers Care Welt [employer] Name Role Phone Kit Arriola MD Primary Care Provider [phone] Reason for Visit * Auth/Cert (Routine) Specialty Diagnoses / Procedures Referred By Contac t Referred To Contact Diagnoses Encounter for induction of labor Procedures NA Referral ID Status Reason Start Date Expiration Date Visits Re quested Visits Authorized [id number] 1 1 Encounter Details Date Type Department Care Team (Late st Contact Info) Description 05/15/2022 3:50 AM CDT Anesthesia Event [address] [address] Dilan Reynolds MD [address] [facility] [address] [place] [address] Anesthesia Record Procedure Summary Procedure Name Responsible Anesthesiologist Anesthesia Start Time Anesthesia Stop Time SECTION (Abdomen) Dilan Reynolds MD 05/15/22 0350 05/15/22 0751 Events Date Time Event Comment 05/15/2022 0350 An Start 0350 Time out - Regional 0350 Face Time 0352 An Block Induction The patie nt was reevaluated immediately before moderate or deep sedation and before anesthesia induction. 0353 Epidural Placed 0622 An Start Data 0623 In Room 0626 Left Uterine Displacement 0631 Anesthesia Ready 0642 Proc Start Pt crossing and bending arm. Retaking NIBP. 0644 Quick Note Pt crossing and bending arm. Pt also shaking with arms. Retaking NIBP. 0648 Uterine Incision 0649 Quick Note Pt bending and moving arm. Pt also shaking with arms. Retaking NIBP. 0737 Proc Fin 0740 an stop data 0746 Out of Room 0751 Handoff to RN I completed my handoff to the receiving nurse during which we: 1. Patient identified 2. Responsible provider identified 3. Pertinent medical history reviewed 4. Procedure type and surgical course discussed 5. Intraoperative anesthetic management and any significant issues discussed 6. Expectations and concerns for postop period discussed 7. Questions solicited from receiving nurse 8. Patient disposition at the time of handoff: PACU 0751 An Stop Meds Name Total epinePHRINE 1:200,000-lidocaine 1.5 % 3 mL epinePHRINE 1:200,000- lidocaine 2 % 10 mL phenylephrine 100 mcg/mL 400 mcg fentaNYL-bupivacaine preserv ative free in 0.9% sodium chloride 2 mcg/mL- 0.1 % cassette (premix) 8 mL fentaNYL 2 mcg/ml-bupivacaine 0.1% 22.5 mL fentaNYL 100 mcg oxytocin 3 Units oxytocin (PITOCIN) 30 Units in Lactated Ringer's (LR) 500 mL (0.06 Units/mL) infusion 30.5 Units ondansetron 2 mg/mL PF 4 mg famotidine 20 mg ceFAZolin 2,000 mg metoclopramide 10 mg azithromycin 500 mg/250 mL 500 mg fentaNYL 2500 mcg/50 mL cassette/syringe (premix) 0 mcg oxytocin 30 unit/500 mL (0.0 6 unit/mL) in sodium chloride 0.9% (premix) solution 0 milliunits morphine (PF) 1 mg/ml 3 mg dexAMETHasone 4 mg/mL 4 mg ketorolac 30 mg LR 0 mL * Agents Name O2% N2O * Blood No blood administrations on file. Lines, Drains, and Airways Type Details Placement Removal Peripheral IV Placement Date: 05/14/22; Placement Time: 2116; Catheter Size: 18 G; Orientation: Anterior, Right; Location: Forearm; Site Prep: Chlorhexidine; Inserted by: Shoeila SEPULVEDA; Insertion Attempts: 1; Patient Tolerance: Tolerated well; Removal Date: 05/17/22; Removal Time: 0855; Removal Reason: Therapy completed 05/14/222116 by Irma Parnell RN 05/17/22 0855 by Delia Beyer RN Epidural Placement Date: 05/15/22; Placement Time: 0406 (created via procedure documentation); Removal Date: None; 05/15/22; 1016 05/15/22 0406 by Teresa Novak CRNA 05/15/22 1016 by Jemma Mark RN Intrauterine Pressure Catheter Placement Date: 05/15/22; Placement Time: 042; Inserted by: Clive OATES; Removal Date: 05/15/22; Removal Time: 06; Removal Reason: Therapy complete 05/15/22 0426 by Irma Parnell RN 05/15/22 06 by Jemma Mark, COCO Urethral Catheter Placement Date: 05/15/22; Placement Time: 05; Inserted by: Soheila SEPULVEDA; Balloon Size: 10 mL; Urine Returned: Yes; Removal Date: 05/15/22; Removal Time: 183; Removal Reason: Per protocol 05/15/22 0525 by Irma Parnell RN 05/15/22 183 by Candy Zuniga RN RETIRED Surgical Site 05/15/22; 0638; Abdomen; low transverse incision; 01/08/24 (Retired LDA, Removed/Completed by [facility] with LDA Utility); 1213 (Retired LDA, Removed/Completed by [facility] with LDA Utility) 05/15/22 0638 by Tammy Mcginnis RN 01/08/24 1213 by Discharge Provider, Automatic documented in this encounter Social History Tobacco [...] 05/18/2022 How often do you attend [employer] or cheondoism services? Never 05/18/2022 Do you belong to any clubs o r organizations such as spiritism groups, unions, fraternal or athletic groups, or [...] place to sleep or slept in a penitentiary (including now)? No 05/18/2022 Personal Safety Answer Date Recorded Have you ever been in or are you currently in a harmful physical or emotional relationship or is someone making you feel afraid or unsafe? 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 TE[employer] Gender Identity Female 07/16/2022 10:05 AM CDT Sexual Orientation Straight 07/16/2022 10 :05 AM CDT documented as of this encounter OR Notes * Anesthesia Postprocedure Evaluation - Talha Marcus DO - 05/16/2022 8:11 AM CDT Patient: Roxana Briseno Procedure Summary Date: 05/15/22 Room / Location: [facility] ROOM 2 / [facility] L&D OR Anesthesia Start: 349 Anesthesia Stop: 750 Procedure: SECTION (Abdomen) Diagnosis: ( Intolerance of Labor) Surgeons: Sumi Castillo MD Responsible Provider: Dilan Reynolds MD Anesthesia Type: epidural ASA Status: 2 Anesthesia Type: epidural Last vitals BP 117/69 (BP Location: Right arm, Patient Position: Lying) Pulse 78 Temp 36.8 ??C (98.2 ??F) (Oral) Resp 16 SpO2 99% Anesthesia Post Evaluation Patient location during evaluation: floor Patient participation: complete - patient participated Level of consciousness: fully awake Pain score: 0 Pain management: adequate Airway patency: adequate Cardiovascular status: acceptable and hemodynamically stable Respiratory status: acceptable and room air Hydration status: acceptable Pt is: normothermic Nausea/Vomiting status: none Comments: Patient denies headache, fevers, chills, rigors, nausea/vomiting, tingling/weakness/numbness, excessive pain/edema/drainage/erythema at needle puncture site. Patient taking PO, ambulating, urinating without Cerda catheter. Puncture site examined - no appreciable induration, erythema, swelling, drainage. Patient counseled on signs/symptoms of epidural abscess/hematoma and post dural puncture headache. Patient advised to seek immediate medical attention should she appreciate any of these. Patient voices understanding. No notable events documented. Cosigned by Harris Smith MD at 05/16/2022 8:58 AM CDT * Anesthesia Procedure Notes - Teresa Novak CRNA - 05/15/2022 4:05 AM CDT Associated Order(s): Epidural Block Epidural Block Patient location: L&D Reason for block: labor analgesia Staff: Placed by: MANDIE: Teresa Novak CRNA Procedure prep: Preprocedure checklist: patient identified, procedure contraindications assessed, procedure consentobtained, surgical consent, IV checked, risks, benefits and alternatives discussed, monitors and equipment checked and timeout performed Patient Position: sitting Procedure performed while patient: awake Monitoring: oximetry and blood pressure Prep solution: chlorhexadine/alcohol PPE: provider hat/mask, sterile gloves and sterile drape Skin infiltrated with lidocaine 1%: yes Epidural: Approach: midline Imaging guidance used: no Location: L3-4 Epidural needle: Injection technique: JULIO saline Needle type: Tuohy Needle gauge: 17 G Needle length: 9 cm Loss of resistance: 5 cm Catheter: Catheter type: multi-orifice. Catheter at skin depth: 10 cm Negative aspiration of blood: no Negative aspiration of CSF: no Test dose: negative Assessment: Sensory level - left: full eval pending Sensory level - right: full eval pending Events: patient tolerated procedure well with no complications * Anesthesia Preprocedure Evaluation - Teresa Novak CRNA - 05/14/2022 11:07 PM CDT Images from the original note were not included. Anesthesia Evaluation Roxana Briseno is a 32 y.o. female * No procedures listed * * No Diagnosis Codes entered * HISTORY HPI . Healthy. Past Medical History Information obtained from: patient and chart. Respiratory Pertinent negatives: asthma Hepatic / Heme + History of anemia - iron deficiency Pertinent negatives: liver disease Gastrointestinal Pertinent negatives: GERD Renal / Pertinent negatives: renal disease Endocrine / Other Pertinent negatives: diabetes mellitus Functional Capacity Functional capacity limited by a non-cardiovascular, non-pulmonary condition. Day of Surgery assessments + Possibility of assessed - known to be . Review of Systems Pertinent negatives: productive cough; wheezing; SOB; recent cold/flu; fever and chest pain Patient Active Problem List Diagnosis ??? Supervision of other normal , antepartum ??? Encounter for induction of labor Past Medical History: Diagnosis Date ??? History of ectopic Past Surgical History: Procedure Laterality Date ??? ECTOPIC SURGERY ??? US ABDOMEN COMPLETE W LIVER DOPPLER (C) Right 11/12/2017 ??? US ABDOMEN COMPLETE W LIVER DOPPLER (C) Right 11/13/2017 OB History 4 Para 1 Term 1 AB 2 Living 1 SAB IAB Ectopic 2 Multiple Live Births 1 Allergies Allergen Reactions ??? Bactrim [Sulfamethoxazole-Trimethoprim] Hives ??? Latex Hives Hives ??? Morphine Hives and Itching Itching ??? Vancomycin Hives Itching ??? Tramadol Itching Taking? Last Dose Start Date End Date Provider folic acid (FOLVITE) 1 mg tablet -- 09/24/21 -- ProviderKenneth MD PrePlus 27 mg iron- 1 mg tablet -- 07/18/21 -- ProviderKenneth MD Current Facility-Administered Medications: ??? carboprost (HEMABATE) injection 250 mcg, 250 mcg, intramuscular, Once PRN ??? Carrier Fluids for Secondary Infusion - 0.9% Sodium Chloride, 30 mL, intravenous, PRN ??? cefOXitin (MEFOXITIN) 1,000 mg/10 mL in sterile water (premix) 1,000 mg, 1,000 mg, intravenous,Once PRN ??? dextrose 5% and Lactated Ringer's infusion, 125 mL/hr, intravenous, Continuous, Stopped at 05/14/222236 ??? fentaNYL 2500 mcg/50 mL cassette/syringe (premix), 0-400 mcg/hr, intravenous, Titrated ??? Lactated Ringer's (LR) bolus 1,000 mL, 1,000 mL, intravenous, TID PRN ??? Lactated Ringer's (LR) bolus 1,000 mL, 1,000 mL, intravenous, Once PRN ??? lidocaine PF (XYLOCAINE) 10 mg/mL (1 %) preservative free injection 100 mg, 10 mL, infiltration, Once PRN ??? loperamide (IMODIUM) capsule 2 mg, 2 mg, oral, Once PRN ??? methylergonovine (METHERGINE) injection 0.2 mg, 0.2 mg, intramuscular, Once PRN ??? miSOPROStoL (CYTOTEC) tablet 800 mcg, 800 mcg, rectal, Once PRN ??? ondansetron ODT (ZOFRAN-ODT) disintegrating tablet 4 mg, 4 mg, oral, Q6H PRN OR ondansetron(ZOFRAN) injection 4 mg, 4 mg, intravenous, Q6H PRN ??? oxytocin (PITOCIN) injection 10 Units, 10 Units, intramuscular, Once PRN ??? [COMPLETED] penicillin G potassium 5 million units/50 mL in sterile water (premix) 5 Million Units, 5 Million Units, intravenous, Once, 5 Million Units at 05/14/22 2210 FOLLOWED BY [START ON 05/15/2022] penicillin G potassium 3 million units/50 mL in dextrose (premix) 3 Million Units, 3 Million Units, intravenous, Q4H ??? sodium chloride 0.9% flush 0.5-20 mL, 0.5-20 mL, intra-catheter, Q8H ANGIE ??? sodium chloride 0.9% flush 0.5-20 mL, 0.5-20 mL, intra-catheter, PRN ??? terbutaline (BRETHINE) injection 0.125 mg, 0.125 mg, intravenous, Once PRN OR terbutaline (BRETHINE) injection 0.25 mg, 0.25 mg, subcutaneous, Once PRN ??? tranexamic acid (CYKLOKAPRON) 1,000 mg/100 mL (10 mg/mL) in sodium chloride (premix) 1,000 mg, 1,000 mg, intravenous, Once PRN Social History Tobacco Use Smoking Status Never Smokeless Tobacco Never Alcohol Use: Not At Risk ??? Frequency of Alcohol Consumption: Never ??? Average Number of Drinks: Patient does not drink ??? Frequency of Binge Drinking: Never Substance and Sexual Activity Drug Use Never No family history on file. Vitals: 05/14/22 2113 05/14/22211705/14/222121 BP: 130/76 Pulse: 93 87 83 Resp: Temp: 36.8 ??C (98.3 ??F) SpO2: 99% 99% PT: No results found for requested labs within last 720 hours. INR: No results found for requested labs within last 720 hours. APTT: No results found for requested labs within last 720 hours. Hgb A1C: No results found for requested labs within last 720 hours. CBC RBC: 05/14/2022: 3.73 M/cumm (L) RDW: 04/28/2022: 13.1 % MCHC: 05/14/2022: 33.0 g/dL MCH: 05/14/2022: 27.6 pg MCV: 05/14/2022: 83.6 fL Hct: 05/14/2022: 31.2 % (L) Hgb: 05/14/2022: 10.3 g/dL (L) WBC: 05/14/2022: 11.2 K/cumm (H) MPV: 05/14/2022: 10.4 fL Platelets: 05/14/2022: 328 K/cumm RDW CV: 05/14/2022: 14.5 % RDW Sd: 05/14/2022: 43.7 fL BMP Glucose: 05/14/2022: 101 mg/dL Calcium: 05/14/2022: 8.6 mg/dL Sodium: 05/14/2022: 138 mmol/L Potassium: 05/14/2022: 3.3 mmol/L CO2: 05/14/2022: 22 mmol/L Chloride: 05/14/2022: 106 mmol/L BUN: 05/14/2022: 10 mg/dL Creatinine: 05/14/2022: 0.72 mg/dL DOS Physical Exam Medical history, medications, and allergies reviewed. Attestation: This PAT evaluation 05/14/2022. Airway Exam: Mallampati: I Cervical ROM: FROM Cardiovascular Exam: Rate: regular Rhythm: regular Pulmonary Exam: LCTA, bilat EENT Exam: trachea midline Dental Exam: Appears intact Skin Exam: Skin is warm. Current state: Patient's current state is cooperative. Anesthesia Plan ASA 2 My patient is approved for the Anesthesia Controlled Medication protocol when under care of a SAND SCREENER OPERATOR Planned anesthesia: Epidural Postoperative Plan: No plan for postoperative opioid use. Patient's planned disposition post procedure is Floor. Informed Consent: Discussed plan with resident and SAND SCREENER OPERATOR. Anesthesia plan and risks discussed with patient and spouse. Plan and Consent Comments: Discussed risks, benefits, alternatives to neuraxial anesthesia, including but not limited to PDPH,risk of prolonged or permanent numbness/weakness/paralysis, nausea, aspiration, bleeding, infection, possible need to convert to GETA. Pt voiced understanding and acceptance of risks and a desire to proceed with labor neuraxial anesthesia. Patient desires fentanyl PHOTOGRAPH MOUNTER at this time with eventual conversion to neuraxial labor analgesia. Described risks associated with fentanyl PHOTOGRAPH MOUNTER including placental transfer and respiratory depression. All questions answered. Consent and Attending signature: I and/or my designee have discussed the anesthesia plan, benefits, possible alternatives, parental presence at time of induction (if indicated), and clinically relevant risks that may include dental injury, unintentional awareness, and/or other complications. The patient and/or parent/legal guardian understand, and agree to proceed. All questions answered. documented in this encounter Plan of Treatment Not on file documented as of this encounter Procedures Procedure Name Priority Date/Time Associated Diagnosis Comments NM AN PROCEDURE PLACEHOLDER Routine 05/15/2022 4:05 AM CDT documented in this encounter Results * NM AN PROCEDURE PLACEHOLDER (05/15/2022 4:05 AM CDT) Narrative Teresa Novak CRNA - 05/15/2022 4:05 AM CDT Teresa Novak CRNA ? 05/15/2022 ??4:06 AM Epidural Block Patient location: L&D Reason for block: labor analgesia Staff: Placed by: MANDIE: Teresa Novak CRNA Procedure prep: Preprocedure checklist: patient identified, procedure contraindications assessed, procedure consent obtained, surgical consent, IV checked, risks, benefits and alternatives discussed, monitors and equipment checked and timeout performed Patient Position: sitting Procedure performed while patient: awake Monitoring: oximetry and blood pressure Prep solution: chlorhexadine/alcohol PPE: provider hat/mask, sterile gloves and sterile drape Skin infiltrated with lidocaine 1%: yes Epidural: Approach: midline Imaging guidance used: no Location: L3-4 Epidural needle: Injection technique: JULIO saline Needle type: Tuohy Needle gauge: 17 G Needle length: 9 cm Loss of resistance: 5 cm Catheter: Catheter type: multi-orifice. Catheter at skin depth: 10 cm Negative aspiration of blood: no Negative aspiration of CSF: no Test dose: negative Assessment: Sensory level - left: full eval pending Sensory level - right: full eval pending Events: patient tolerated procedure well with no complications Dilan Reynolds MD ANESTHESIA ORDERABLES Final R esult documented in this encounter Visit Diagnoses Not on filedocumented in this encounter Administered Medications Inactive Administered Medications - up to 3 most recent administrations Medication Order MAR Action Action Date Dose Rate Site azithromycin (ZITHROMAX) 500 mg/250 mL in sodium chloride 0.9% (premix) intravenous, Administer over 60 Minutes, As needed, Starting on Sun05/15/22 at 0629, Anesthesia Intra-op Given 05/15/2022 6:29 AM CDT 500 mg ceFAZolin (ANCEF) injection intravenous, Administer over 3 Minutes, As needed, Starting on Sun05/15/22 at 0631, Anesthesia Intra-op Given 05/15/2022 6:31 AM CDT 2,000 mg dexAMETHasone (DECADRON) 4 mg/mL injection intravenous, Administer over 2 Minutes, As needed, Starting on Sun05/15/22 at 0714, Anesthesia Intra-op Given 05/15/2022 7:14 AM CDT 4 mg famotidine (PEPCID) injection intravenous, Administer over 2 Minutes, As needed, Starting on Sun05/15/22 at 0620, Anesthesia Intra-op Given 05/15/2022 6:20 AM CDT 20 mg fentaNYL (SUBLIMAZE) preservative free injection epidural, As needed, Starting on Sun05/15/22 at 0625, Anesthesia Intra-op Given 05/15/2022 6:25 AM CDT 100 mcg fentaNYL-bupivacaine preservative free in 0.9% sodium chloride 2 mcg/mL- 0.1 % cassette (premix) Continuous Rate: 10 mL/hr, Patient Bolus Dose: 8 mL, Lockout Interval: 15 Minutes, epidural, Continuous, Starting on Sun05/15/22 at 0415, Until Sun05/15/22 at 0831, 100 mL, Indications: Pain, Stop epidural infusion after placental delivery and any indicated repair is complete., RoutineIndications:Pain Given 05/15/2022 3:57 AM CDT 8 mL fentaNYL-bupivacaine preservative free in 0.9% sodium chloride 2 mcg/mL- 0.1 % cassette (premix) epidural, Continuous PRN, Starting on Sun05/15/22 at 0407, Until Sun05/15/22 at 0741, Routine New Bag 05/15/2022 4:07 AM CDT 10 mL/hr 10 mL/hr ketorolac (TORADOL) 30 mg/mL (1 mL) injection intravenous, As needed, Starting on Sun05/15/22 at 0720, Anesthesia Intra-op Given 05/15/2022 7:20 AM CDT 30 mg Lactated Ringer's (LR) infusion intravenous, Continuous PRN, Starting on Sun05/15/22 at 0622, Anesthesia Intra-op Rate/Dose Change 05/15/2022 7:34 AM CDT 800 mL/hr Rate/Dose Change 05/15/2022 6:43 AM CDT 200 mL/ hr New Bag 05/15/2022 6:22 AM CDT 500 mL/hr lidocaine-EPINEPHrine (XYLOCAINE with EPI) 1.5 %-1:200,000 preservative free injection epidural, As needed, Starting on Sun05/15/22 at 0354, Anesthesia Intra-op, Indications: Administration of Local AnesthesiaIndications:Administra tion of Local Anesthesia Given 05/15/2022 3:54 AM CDT 3 mL lidocaine-EPINEPHrine (XYLOCAINE with EPI) 2 %-1:200,000 preservative free injection epidural, As needed, Starting on Sun05/15/22 at 0625, Anesthesia Intra-op, Indications: Administration of Local AnesthesiaIndications:Administra tion of Local Anesthesia Given 05/15/2022 6:25 AM CDT 10 mL metoclopramide (REGLAN) injection intravenous, Administer over 1 Minutes, As needed, Starting on Sun05/15/22 at 0632, Anesthesia Intra-op Given 05/15/2022 6:32 AM CDT 10 mg morphine preservative free injection epidural, Administer over 4 Minutes, As needed, Starting on Sun05/15/22 at 0708, Anesthesia Intra-op Given 05/15/2022 7:08 AM CDT 3 mg ondansetron (ZOFRAN) injection intravenous, Administer over 2 Minutes, As needed, Starting on Sun05/15/22 at 0620, Anesthesia Intra-op Given 05/15/2022 6:20 AM CDT 4 mg oxytocin (PITOCIN) 30 Units in Lactated Ringer's (LR) 500 mL (0.06 Units/mL) infusion intravenous, Continuous PRN, Starting on Sun05/15/22 at 0650, Anesthesia Intra-op New Bag 05/15/2022 6:50 AM CDT 30 Units/hr 500 mL/hr oxytocin (PITOCIN) injection intravenous, As needed, Starting on Sun05/15/22 at 0649, Anesthesia Intra-op Given 05/15/2022 6:49 AM CDT 3 Units phenylephrine (DARRYN-SYNEPHRINE) 1 mg/10 mL (100 mcg/mL) in sodium chloride 0.9% (premix) intravenous, As needed, Starting on Sun05/15/22 at 0656, Anesthesia Intra-op Given 05/15/2022 7:00 AM CDT 200 mcg Given 05/15/2022 6:56 AM CDT 200 mcg documented in this encounter Care Teams Welt Sole Layer Relationship Specialty Start Date End Date Kit Arriola MD [address] [address] PCP - General Emergency Medicine 12/19/18 documented as of this encounter
--- OUTSIDE RECORDS SUMMARY | 2024-02-17 13:56 | XMS_ITS | Encounter Summary ---
Author Organization [facility] Address [address] [place] [address] Phone Care Team Providers Care [employer] Name Role Phone Kit Arriola MD Primary Care Provider [phone] Reason for Visit * Reason Comments Routine Visit Encounter Details Date Type Department Care Team (Late st Contact Info) Description 04/12/2022 4:15 PM DOORPERSON Office Visit [facility] Obstetrics and Gynecology [address] [facility] [address] [place] [address] [place] [address] [place] [id number] Supervision of other normal , antepartum [...] on file Legal Sex Female 5:56 PM DOORPERSON Gender Identity Female 07/16/2022 10:05 AM CDT Sexual Orientation Straight 07/16/2022 10 :05 AM CDT documented as of this encounter Last Filed Vital Signs Vital Sign Reading Time Taken Comments Blood Pressure 125/86 04/12/2022 4:31 PM DOORPERSON Pulse - - Temperature - - Respiratory Rate - - Oxygen Saturation - - Inhaled Oxygen Concentration - - Weight 84.8 kg (187 lb) 04/12/2022 4:31 PM DOORPERSON Height 165.1 cm (5' 5 ) 04/12/2022 4:31 PM DOORPERSON Body Mass Index 31.12 04/12/2022 4:31 PM DOORPERSON documented in this encounter Progress Notes * Benjamin Linares MD - 04/12/2022 4:15 PM CST Discussed s/s of labor. Reviewed plans for NSTs at 37, 38 weeks (BPP with growth at 36 weeks). PERSON documented in this encounter Plan of Treatment Not on file documented as of this encounter Visit Diagnoses Diagnosis Supervision of other normal , antepartum- Primary documented in this encounter Care Teams [employer] Relationship Specialty Start Date End Date Kit Arriola MD [address] [address] PCP - General Emergency Medicine 12/19/18 documented as of this encounter
--- OUTSIDE RECORDS SUMMARY | 2024-02-17 13:56 | XMS_ITS | Encounter Summary ---
Author Organization [facility] Address [address] [place] [address] Phone Care Team Providers Care Director Of Consumer Marketing Name Role Phone Kit Arriola MD Primary Care Provider [phone] Reason for Visit * Reason Comments Post-op Visit Encounter Details Date Type Department Care Team (Late st Contact Info) Description 06/02/2022 10:45 AM CDT Office Visit [facility] Obstetrics and Gynecology [address] [facility] [address] 7th Floor [address] [place] [address] Post-operative state (Primary Dx) Social History Tobacco Use Types [...] any clubs o r organizations such as moravian groups, unions, fraternal or athletic groups, or [...] place to sleep or slept in a long term (including now)? No 05/18/2022 Personal Safety Answer Date Recorded Have you ever been in or are you currently in a harmful physical or emotional relationship or is someone making you feel afraid or unsafe? 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 Gender Identity Female 07/16/2022 10:05 AM CDT Sexual Orientation Straight 07/16/2022 10 :05 AM CDT documented as of this encounter Last Filed Vital Signs Vital Sign Reading Time Taken Comments Blood Pressure 128/92 06/02/2022 10:57 AM CDT Pulse - - Temperature - - Respiratory Rate - - Oxygen Saturation - - Inhaled Oxygen Concentration - - Weight 79.3 kg (174 lb 12.8 oz) 023 10:57 AM CDT Height 165.1 cm (5' 5 ) 06/02/2022 10:5 7 AM CDT Body Mass Index 29.09 06/02/2022 10:57 AM CDT documented in this encounter Progress Notes * Benjamin Linares MD - 06/02/2022 10:45 AM CDT Postop Visit Roxana Briseno is a 32 y.o. female who presents to the office 2 weeks status post section for NRFHR. Patient is tolerating a regular diet without difficulty. Bowel movements are normal. The patient is not having any pain. The patient is bottlefeeding. The patient's denies mood concerns. She reports normal lochia. I have reviewed: allergies, current medications, past family history, past medical history, past social history, past surgical history, and problem list Vitals BP 128/92 Ht 165.1 cm (5' 5 ) Wt 174 lb 12.8 oz (79.3 kg) LMP 08/13/2021 No BMI 29.09 kg/m?? General: appears stated age and cooperative Abdomen: soft, bowel sounds active, non-tender Incision: healing well, no drainage, no erythema, no hernia, no seroma, no swelling, no dehiscence,incision well approximated Assessment/Plan Roxana Briseno is Doing well postoperatively. Operative findings reviewed. 1. Continue any current medications. 2. Wound care discussed. 3. Activity restrictions: as tolerated 4. Anticipated return to work: 6 weeks . 5. Follow up: 4 weeks. For pp visit. 6. Plans undecided for pp contraception. documented in this encounter Plan of Treatment Not on file documented as of this encounter Visit Diagnoses Diagnosis Post-operative state- Primary Other postprocedural status documented in this encounter Care Teams Director Of Consumer Marketing Relationship Specialty Start Date End Date Kit Arriola MD [address] [address] PCP - General Emergency Medicine 12/19/18 documented as of this encounter
--- OUTSIDE RECORDS SUMMARY | 2024-02-17 13:56 | XMS_ITS | Encounter Summary ---
Author Organization [facility] Address [address] [place] [address] Phone Care Team Providers Care Fastener Sewing Machine Operator Name Role Phone Kit Arriola MD Primary Care Provider [phone] Reason for Visit * Reason Comments Routine Visit Encounter Details Date Type Department Care Team (Late st Contact Info) Description 05/10/2022 4:30 PM CDT Office Visit [facility] Obstetrics and Gynecology [address] [facility] 7th Floor [address] [place] [address] Marylin Rene MD [phone] [place] [address] Supervision of other normal , [...] on file Legal Sex Female 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 documented in this encounter Plan of Treatment Not on file documented as of this encounter Visit Diagnoses Diagnosis Supervision of other normal , antepartum- Primary documented in this encounter Care Teams Fastener Sewing Machine Operator Relationship Specialty Start Date End Date Kit Arriola MD [address] [address] PCP - General Emergency Medicine 12/19/18 documented as of this encounter
--- OUTSIDE RECORDS SUMMARY | 2024-02-17 13:56 | XMS_ITS | Encounter Summary ---
Author Organization [facility] Address [address] [place] [address] Phone Care Team Providers Care Curriculum Coordinator Name Role Phone Kit Arriola MD Primary Care Provider [phone] Reason for Referral * (Routine) - Closed Specialty Diagnoses / Procedures Referred By Contac t Referred To Contact Diagnoses resulting from in vitro fertilization, antepartum Procedures nonstress test - Janice Jordan MD [address] [place] [address] Phone: tel: fax: [facility] (All Locations) Referral ID Status Reason Start Date Expiration Date Visits Re quested Visits Authorized [id number] Closed 05/03/2022 06/02/2023 1 1 Reason for Visit * Reason Comments Non-stress Test Encounter Details Date Type Department Care Team (Latest Contact Info) Description 05/03/2022 3:00 PM CDT Clinical Support [facility] Obstetrics and Gynecology [address] [place] [address] Health 7th [place] [address] resulting from in vitro fertilization, antepartum (Primary [...] on file Legal Sex Female 5:56 PM ONCOLOGY ADMIN Gender Identity Female 07/16/2022 10:05 AM CDT Sexual Orientation Straight 07/16/2022 10 :05 AM CDT documented as of this encounter Plan of Treatment Not on file documented as of this encounter Procedures Procedure Name Priority Date/Time Associated Diagnosis Comments NONSTRESS TEST Routine 05/03/2022 resulting from in vitro fertilization, antepartum documented in this encounter Results * nonstress test - (05/03/2022) us Janice Jordan MD OB GYNE ORDERABLES Fi nal Result documented in this encounter Visit Diagnoses Diagnosis resulting from in vitro fertilization, antepartum- Primary documented in this encounter Care Teams Curriculum Coordinator Relationship Specialty Start Date End Date Kit Arriola MD [address] [address] PCP - General Emergency Medicine 12/19/18 documented as of this encounter
--- OUTSIDE RECORDS SUMMARY | 2024-02-17 13:56 | XMS_ITS | Encounter Summary ---
Author Organization [facility] Address [address] [place] [address] Care Team Providers Care Metal Stud Framer Name Role Phone Kit Arriola MD Primary Care Provider [phone] Reason for Referral * Diagnostic Imaging (Routine) - Closed Specialty Diagnoses / Procedures Referred By Contac t Referred To Contact Diagnoses Encounter for follow-up ultrasound of anatomy Low lying placenta nos or without hemorrhage, second trimester Procedures US Ob Follow Up Janice Jordan MD [address] [place] [address] Phone: tel: fax: [facility] (All Locations) Referral ID Status Reason Start Date Expiration Date Visits Re quested Visits Authorized [id number] Closed 01/02/2022 02/04/2023 1 99 LANCE PHOTOGRAPHER Reason for Visit * Diagnostic Imaging (Routine) - Closed Specialty Diagnoses / Procedures Referred By Contac t Referred To Contact Diagnoses Encounter for follow-up ultrasound of anatomy Low lying placenta nos or without hemorrhage, second trimester Procedures US Ob Follow Up Janice Jordan MD [address] [place] [address] Phone: tel: fax: [facility] (All Locations) Referral ID Status Reason Start Date Expiration Date Visits Re quested Visits Authorized [id number] Closed 01/02/2022 02/04/2023 1 99 Encounter Details Date Type Department Care Team (Latest Contact Info) Description 03/01/2022 11:00 AM FREELANCE PHOTOGRAPHER - 03/01/2022 11:59 PM FREELANCE PHOTOGRAPHER Hospital Encounter [facility] - Ultrasound [address] [facility] 7th Floor, [address] [facility] [place] [address] Encounter for follow-up ultrasound of anatomy; Low lying placenta nos or without hemorrhage, second trimester Discharge Disposition: Discharge to home or self care Social History Tobacco Use Types Packs/Day Years [...] on file Legal Sex Female 5:56 PM FREELANCE PHOTOGRAPHER Gender Identity Female 07/16/2022 10:05 AM CDT Sexual Orientation Straight 07/16/2022 10 :05 AM CDT documented as of this encounter Medications at Time of Discharge folic acid (FOLVITE) 1 mg tablet 09/24/2021 06/26/2022 ondansetron (ZOFRAN) 4 mg tablet Take 1 tablet (4 mg total) by mouth every 8 (eight) hours as needed for nausea or vomiting 20 tablet 3 11/04/2021 03/29/2022 PrePlus 27 mg iron- 1 mg tablet 07/18/2021 06/26/2022 prochlorperazine (COMPAZINE) 10 mg tablet Take 1 tablet (10 mg total) by mouth every 8 (eight) hours as needed for nausea or vomiting 30 tablet 1 11/21/2021 03/29/2022 documented as of this encounter Discharge Disposition Disposition Code Departure Means Destination Discharge to home or self care documented in this encounter Plan of Treatment Not on file documented as of this encounter Procedures Procedure Name Priority Date/Time Associated Diagnosis Comments US OB FOLLOW UP Schedule Routine, Read Routine (OP Routine) 03/01/2022 11:00 AM FREELANCE PHOTOGRAPHER Encounter for follow-up ultrasound of anatomy Low lying placenta nos or without hemorrhage, second trimester documented in this encounter Results * US Ob Follow Up (03/01/2022 11:00 AM FREELANCE PHOTOGRAPHER) Fetus# Fetus1 VIEWPOINT Estimated Weight 1,493 g&grams VIEWPOINT Placenta Details posterior, Previa-no, no placental masses VIEWPOINT Presentation Vertex VIEWPOINT Anatomical Region Laterality Modality Abdomen N/A Ultrasound 03/01/2022 11:0 0 AM FREELANCE PHOTOGRAPHER Impressions 03/01/2022 12:23 PM FREELANCE PHOTOGRAPHER IUP at 28w 4d who presents for growth assessment. ??Vertex presentation. ??The interval growth has been appropriate. The EFW plots at the 86%. The amniotic fluid volume is normal. ?? Narrative Procedure Note Evette Caba MD - 03/01/2022 IMPRESSION: IUP at 28w 4d who presents for growth assessment. Vertexpresentation. The interval growth has been appropriate. The EFWplots at the 86%. The amniotic fluid volume is normal. us Janice Jordan MD IMG OB US PROCEDURES Final Result documented in this encounter Visit Diagnoses Diagnosis Encounter for follow-up ultrasound of anatomy Low lying placenta nos or without hemorrhage, second trimester documented in this encounter Care Teams Metal Stud Framer Relationship Specialty Start Date End Date Kit Arriola MD [address] [address] PCP - General Emergency Medicine 12/19/18 documented as of this encounter
--- OUTSIDE RECORDS SUMMARY | 2024-02-17 13:56 | XMS_ITS | Encounter Summary ---
Author Organization [facility] Address [address] [place] [address] Phone Care Team Providers Care Automotive Specialty Technician Name Role Phone Kit Arriola MD Primary Care Provider [phone] Reason for Visit * Reason Comments Follow-up Encounter Details Date Type Department Care Team (Latest Contact Info) Description 06/26/2022 1:00 PM CDT Office Visit [facility] Obstetrics and Gynecology [address] [place] [address] Encounter for routine follow-up (Primary Dx); Encounter for initial prescription of contraceptive pills; PCOS (polycystic ovarian syndrome) Social History Tobacco Use Types Packs/Day Years [...] any clubs o r organizations such as religious groups, unions, fraternal or athletic groups, or [...] a senior living (including now)? 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 Gender Identity Female 07/16/2022 10:05 AM CDT Sexual Orientation Straight 07/16/2022 10 :05 AM CDT documented as of this encounter Last Filed Vital Signs Vital Sign Reading Time Taken Comments Blood Pressure 122/76 06/26/2022 1:07 PM CDT Pulse - - Temperature - - Respiratory Rate - - Oxygen Saturation - - Inhaled Oxygen Concentration - - Weight 76.2 kg (168 lb) 06/26/2022 1:07 PM CDT Height 165.1 cm (5' 5 ) 06/26/2022 1:07 PM CDT Body Mass Index 27.96 06/26/2022 1:07 PM CDT documented in this encounter Patient Instructions * Patient Instructions* Nanci Jolly, GABRIELLE - 06/26/2022 1:00 PM CDT Patient Education Control Pills WHAT YOU NEED TO KNOW: What are control pills? control pills are also called oral contraceptives, or the pill.It is medicine that helps prevent by stopping ovulation. Ovulation is when the ovaries make and release an egg cell each month. If this egg gets fertilized by sperm, occurs. You will need to take the pill at the same time every day. Your healthcare provider will tell you when tostart taking the pill. You will also be told what to do if you miss a dose. Instructions will depend on the kind of control pills you are taking. What are the different kinds of control pills? Some kinds are taken for 21 days in a row, followed by 7 days of placebo (no hormones) pills. Other kinds are taken for 24 days followed by 4 daysof placebos. Each kind has a certain amount of female hormones. Your provider will decide on the kind that is best for you based on your age and other health conditions. What may be done before I can start taking control pills? You need to see your healthcare provider to get a prescription. Any of the following may be done before your healthcare provider gives you a prescription: Your healthcare provider will ask about diseases and illnesses you have had in the past. Your provider will check your risk for blood clots, heart conditions, or stroke. Tell your provider if you hadgastric bypass surgery. This surgery can affect the way your body absorbs medicines such as control pills. Your provider will also check your blood pressure, and may do a breast and pelvic exam. A Pap smearmay also be done during the pelvic exam. This is a test to make sure you do not have abnormal changes on your cervix. You may need other tests, such as a urine test to make sure you are not . Your provider will ask if you take any medicines and if you smoke. Smoking increases your risk for stroke, heart attack, or a blood clot in your lungs. If you smoke, you should not take certain kindsof control pills. What are the advantages of control pills? When control pills are used correctly, the chances of getting are very low. control pills may help decrease bleeding and pain during your monthly period. They may also help prevent cancer of the uterus and ovaries. What are the disadvantages of control pills? You may have sudden changes in your mood or feelings while you take control pills. You may have nausea and a decreased sex drive. You may havean increased appetite and rapid weight gain. You may also have bleeding in between periods, less frequent periods, vaginal dryness, and breast pain. control pills will not protect you from sexually transmitted infections. Rarely, some control pills can increase your risk for a blood clot. This may become life-threatening. What should I do if I decide I want to get ? If you are planning to have a baby, ask your healthcare provider when you may stop taking your control pills. It may take some time for you to start ovulating again. Ask your healthcare provider for more information about after control pills. When should I start taking control pills after I have a baby? If you are not , you may start taking control pills 3 weeks after you give . You may be able to take certain types of control pills if you are . These pills can be started from 6 weeks to 6 months after you give . Ask your healthcare provider for more information about when to starttaking control pills after you give . What do I need to know about control pills and menopause? Talk with your healthcare provider if you want to take control pills around menopause. Around age 45, you will enter into perimenopause. This means your hormone levels are dropping and you are ovulating less often. You can still become during this time. The risk for problems, such as miscarriage, are higher if you become after age 45. control pills will prevent , and may also help prevent or relieve some signs and symptoms of menopause. Examples arehot flashes and mood swings. Your provider will do tests when you are around age 50. The tests may show that you are in menopause. If the tests do not show menopause for sure, you may be able to continue taking the pill up to age 55. The decision will depend on your health and if you have any medical conditions, such as a blood clot. Call your local emergency number (911 in the ) for any of the following: You have any of the following signs of a stroke: Numbness or drooping on one side of your face Weakness in an arm or leg Confusion or difficulty speaking Dizziness, a severe headache, or vision loss You feel lightheaded, short of breath, and have chest pain. You cough up blood. When should I seek immediate care? Your arm or leg feels warm, tender, and painful. It may look swollen and red. You have severe pain, numbness, or swelling in your arms or legs. When should I call my doctor? You have forgotten to take a control pill. You have mood changes, such as depression, since starting control pills. You have nausea or are vomiting. You have severe abdominal pain. You missed a period and have questions or concerns about being . You still have bleeding 4 months after taking control pills correctly. You have questions or concerns about your condition or care. CARE AGREEMENT: You have the right to help plan your care. Learn about your health condition and how it may be treated. Discuss treatment options with your healthcare providers to decide what care you want to receive. You always have the right to refuse treatment. The above information is an computer aided design operator only. It is not intended as medical advice for individual conditions or treatments. Talk to your doctor, nurse or pharmacist before following any medical regimen to see if it is safe and effective for you. ?? Copyright [employer] 2021 Information is for End User's use only and may not be sold, redistributed or otherwise used for commercial purposes. All illustrations and images included in CareNotes?? are the copyrighted property of [employer] or [employer] documented in this encounter Ordered Prescriptions Prescription Sig Dispense Quantity Refills Last Filled Start Date End Date metFORMIN (GLUCOPHAGE) 500 mg tabletIndications:P COS (polycystic ovarian syndrome) Take 1 tablet (500 mg total) by mouth daily with breakfast 30 tablet 11 06/26/2022 norethindrone-ethin yl estradiol-iron (Loestrin Fe 1.5/30, 28-Day,) 1.5 mg-30 mcg per tabletIndications:E ncounter for initial prescription of contraceptive pills Take 1 tablet by mouth daily 84 tablet 3 06/26/2022 documented in this encounter Progress Notes * Nanci Jolly NP - 06/26/2022 1:00 PM CDT Images from the original note were not included. Post Visit Note Chief Complaint Follow-up Subjective: Roxana Briseno is a 32 y.o. year old female who presents for visit. PMH includes PCOS. Delivery type: 05/15/2022 pLTCS for NRFS baby boy Complications:NRFS Menses since delivery? none Feeding: formula Mood: no issues. doing well. Contraception: condoms Last pap with result: 10/2021 due 2024 Patient Active Problem List Diagnosis Supervision of other normal , antepartum Encounter for induction of labor delivery delivered Ob History OB History Para Term AB Living 4 2 2 2 2 SAB IAB Ectopic Multiple Live Births 2 0 2 # Outcome Date GA Lbr Rajeev/2nd Weight Sex Delivery Anes PTL Lv 4 Term 05/15/22 39w2d 3.3 kg (7 lb 4.4 oz) M EPI N BELEM Complications: Intolerance 3 Ectopic 2018 2 Term 2014 F Vag-Spont BELEM 1 Ectopic Obstetric Comments 2022- TS- pLTCS for NRFS baby boy Name TBA Past Medical History: Diagnosis Date History of ectopic Past Surgical History: Procedure Laterality Date SECTION 05/15/2022 ECTOPIC SURGERY US ABDOMEN COMPLETE W LIVER DOPPLER (C) Right 11/12/2017 US ABDOMEN COMPLETE W LIVER DOPPLER (C) Right 11/13/2017 Social History Tobacco Use Smoking status: Never Smokeless tobacco: Never Substance and Sexual Activity Drug use: Never Sexual activity: Yes Partners: Male control/protection: None Alcohol Use: Not At Risk (05/14/2022) AUDIT-C Frequency of Alcohol Consumption: Never Average Number of Drinks: Patient does not drink Frequency of Binge Drinking: Never Allergies: Allergies Allergen Reactions Bactrim [Sulfamethoxazole-Trimethoprim] Hives Latex Hives Hives Morphine Hives and Itching Itching Vancomycin Hives Itching Tramadol Itching Medications: No current outpatient medications on file. Objective: BP 122/76 Ht 165.1 cm (5' 5 ) Wt 168 lb (76.2 kg) LMP 08/13/2021 No BMI 27.96 kg/m?? Physical Exam Vitals reviewed. Exam conducted with a blasting miner present (Zachariah Levy). Constitutional: Appearance: Normal appearance. She is well-developed and normal weight. Comments: LTCS site: clean, D+I HENT: Head: Normocephalic. Pulmonary: Effort: Pulmonary effort is normal. Genitourinary: Labia: Right: No tenderness or lesion. Left: No tenderness or lesion. Vagina: Normal. Musculoskeletal: General: Normal range of motion. Cervical back: Normal range of motion. Skin: General: Skin is warm. Neurological: Mental Status: She is alert and oriented to person, place, and time. Psychiatric: Behavior: Behavior normal. Thought Content: Thought content normal. Judgment: Judgment normal. EPDS:0 UPT: negative Assessment and Plan: Roxana Briseno is a 32 y.o. female who presents for a post visit. Diagnoses and all orders for this visit: Encounter for initial prescription of contraceptive pills - norethindrone-ethinyl estradiol-iron (Loestrin Fe .07/04, 28-Day,) 1.5 mg-30 mcg per tablet; Take1 tablet by mouth daily - reviewed MOA, quick start, taking at the same time daily, expected bleeding profile and s/s to report. Handout provided. PCOS (polycystic ovarian syndrome) - metFORMIN (GLUCOPHAGE) 500 mg tablet; Take 1 tablet (500 mg total) by mouth daily with breakfast - pt reports she was previously only on 500mg per day and desires to restart prior tx. Encounter for routine follow-up 1. progress: Doing well from standpoint. Cleared for physical and sexual activity. 2. Mood: no issues. Reviewed s/s of PPD which can occur up to 1 year from delivery, to call office if experiences. 3. Contraception: MOO's. 4. Other issues: none RTO in one year for WWE or as needed. Neli Jolly APRN, NILSON- 06/26/2022 documented in this encounter Miscellaneous Notes * Addendum Note - Mervat Levy RMA - 06/26/2022 1:00 PM CDTAddended by: MERVAT LEVY on: 06/26/2022 01:53 PM Modules accepted: Orders documented in this encounter Plan of Treatment Not on file documented as of this encounter Procedures Procedure Name Priority Date/Time Associated Diagnosis Comments POCT HCG, URINE Routine 06/26/2022 1:53 PM CDT Encounter for routine follow-up Encounter for initial prescription of contraceptive pills documented in this encounter Results * POCT hCG, urine (06/26/2022 1:53 PM CDT) HCG, ur, POC Negative Lot Number [id number] QC Backgroud Clear Acceptable QC Control Line Acceptable Urine 06/26/2022 1:53 PM CDT us Nanci Jolly NP POINT OF CARE TEST O RDERABLES Final Result documented in this encounter Visit Diagnoses Diagnosis Encounter for routine follow-up- Primary Encounter for initial prescription of contraceptive pills PCOS (polycystic ovarian syndrome) Polycystic ovaries documented in this encounter Discontinued Medications Medication Sig Discontinue Reason Start Date End Da te acetaminophen 500 mg capsuleIndications:Pain Take 2 capsules (1,000 mg total) by mouth every 6 (six) hours as needed for pain Therapy completed 05/17/2022 06/26/2022 folic acid (FOLVITE) 1 mg tablet Therapy completed 09/24/2021 06/26/2022 docusate sodium (COLACE) 100 mg capsuleIndications:cons tipation,Stool Softener Take 1 capsule (100 mg total) by mouth 2 (two) times a day Therapy completed 05/17/2022 06/26/2022 ibuprofen (ADVIL,MOTRIN) 600 mg tabletIndications:Cramp s Take 1 tablet (600 mg total) by mouth every 6 (six) hours as needed for pain Therapy completed 05/17/2022 06/26/2022 oxyCODONE (ROXICODONE) 5 mg immediate release tabletIndications:Pain Take 1 tablet (5 mg total) by mouth every 4 (four) hours as needed for pain Therapy completed 05/17/2022 06/26/2022 PrePlus 27 mg iron- 1 mg tablet Therapy completed 07/18/2021 06/26/2022 acetaminophen 500 mg capsuleIndications:Pain Take 2 capsules (1,000 mg total) by mouth every 6 (six) hours as needed for pain Therapy completed 05/17/2022 06/26/2022 docusate sodium (COLACE) 100 mg capsuleIndications:cons tipation,Stool Softener Take 1 capsule (100 mg total) by mouth 2 (two) times a day Therapy completed 05/17/2022 06/26/2022 folic acid (FOLVITE) 1 mg tablet Therapy completed 09/24/2021 06/26/2022 ibuprofen (ADVIL,MOTRIN) 600 mg tabletIndications:Cramp s Take 1 tablet (600 mg total) by mouth every 6 (six) hours as needed for pain Therapy completed 05/17/2022 06/26/2022 oxyCODONE (ROXICODONE) 5 mg immediate release tabletIndications:Pain Take 1 tablet (5 mg total) by mouth every 4 (four) hours as needed for pain Therapy completed 05/17/2022 06/26/2022 PrePlus 27 mg iron- 1 mg tablet Therapy completed 07/18/2021 06/26/2022 documented as of this encounter Care Teams Automotive Specialty Technician Relationship Specialty Start Date End Date Kit Arriola MD [address] [address] PCP - General Emergency Medicine 12/19/18 documented as of this encounter
--- OUTSIDE RECORDS SUMMARY | 2024-02-17 13:56 | XMS_ITS | Encounter Summary ---
Author Organization [facility] Address [address] [place] [address] Care Team Providers Care Vehicle Care Specialist Name Role Phone Kit Arriola MD Primary Care Provider [phone] Encounter Details Date Type Department Care Team (Late st Contact Info) Description 02/08/2022 5:15 PM REGISTRATION SCHEDULING SPECIALIST Telemedicine [facility] Virtual Care [address] [place] [address] Daksha Mac NP [facility] [place] [address] Nausea and vomiting, unspecified vomiting type (Primary [...] on file Legal Sex Female 5:56 PM REGISTRATION SCHEDULING SPECIALIST Gender Identity Female 07/16/2022 10:05 AM CDT Sexual Orientation Straight 07/16/2022 10 :05 AM CDT documented as of this encounter Progress Notes * Daksha Mac NP - 02/08/2022 5:15 PM CST Will contact PROJECT DEVELOPMENT LEADER due to nausea/vomiting since glucose test this morning. Patient is 23 weeks . STRATION SCHEDULING SPECIALIST documented in this encounter Plan of Treatment Not on file documented as of this encounter Visit Diagnoses Diagnosis Nausea and vomiting, unspecified vomiting type- Primary documented in this encounter Care Teams Vehicle Care Specialist Relationship Specialty Start Date End Date Kit Arriola MD [address] [address] PCP - General Emergency Medicine 12/19/18 documented as of this encounter
--- OUTSIDE RECORDS SUMMARY | 2024-02-17 13:56 | XMS_ITS | Encounter Summary ---
Author Organization [facility] Address [address] [place] [address] Care Team Providers Care Autocad Draftsman Name Role Phone Kit Arriola MD Primary Care Provider [phone] Reason for Referral * Diagnostic Imaging (Routine) - Closed Specialty Diagnoses / Procedures Referred By Contac t Referred To Contact Diagnoses Marginal insertion of umbilical cord affecting management of mother in third trimester Procedures US Ob Follow Up Nanci Jolly NP [address] [address] Phone: tel: fax: [facility] (All Locations) Referral ID Status Reason Start Date Expiration Date Visits Re quested Visits Authorized [id number] Closed 03/01/2022 03/31/2023 1 1 IC LAY OUT WORKER Reason for Visit * Diagnostic Imaging (Routine) - Closed Specialty Diagnoses / Procedures Referred By Contac t Referred To Contact Diagnoses Marginal insertion of umbilical cord affecting management of mother in third trimester Procedures US Ob Follow Up Nanci Jolly NP [address] [address] Phone: tel: fax: [facility] (All Locations) Referral ID Status Reason Start Date Expiration Date Visits Re quested Visits Authorized [id number] Closed 03/01/2022 03/31/2023 1 1 Encounter Details Date Type Department Care Team (Latest Contact Info) Description 03/29/2022 11:11 AM FABRIC LAY OUT WORKER - 03/29/2022 11:59 PM FABRIC LAY OUT WORKER Hospital Encounter [facility] Ul[facility]ound [address], [address] [place] [address] Marginal insertion of umbilical cord affecting management of mother in third trimester Discharge Disposition: Discharge to home or [...] on file Legal Sex Female 5:56 PM FABRIC LAY OUT WORKER Gender Identity Female 07/16/2022 10:05 AM CDT Sexual Orientation Straight 07/16/2022 10 :05 AM CDT documented as of this encounter Medications at Time of Discharge Medication Sig Dispense Quantity Refills Last Filled Start D ate End Date folic acid (FOLVITE) 1 mg tablet 09/24/2021 06/26/2022 PrePlus 27 mg iron- 1 mg tablet 07/18/2021 06/26/2022 documented as of this encounter Discharge Disposition Disposition Code Departure Means Destination Discharge to home or self care documented in this encounter Plan of Treatment Not on file documented as of this encounter Procedures Procedure Name Priority Date/Time Associated Diagnosis Comments US OB FOLLOW UP Schedule Routine, Read Routine (OP Routine) 03/29/2022 11:11 AM FABRIC LAY OUT WORKER Marginal insertion of umbilical cord affecting management of mother in third trimester documented in this encounter Results * US Ob Follow Up (03/29/2022 11:11 AM FABRIC LAY OUT WORKER) Fetus# Fetus1 VIEWPOINT Estimated Weight 2,110 g&grams VIEWPOINT Placenta Details posterior, Previa-no, no placental masses VIEWPOINT Presentation Vertex VIEWPOINT Anatomical Region Laterality Modality Abdomen N/A Ultrasound 03/29/2022 11:1 3 AM FABRIC LAY OUT WORKER Impressions 03/29/2022 12:25 PM FABRIC LAY OUT WORKER Single IUP at 32w 4d for growth assessment1. The biometry is appropriate for gestational age. Interval growth is normal. 2. The amniotic fluid volume is normal.3. Marginal placental cord insertion is again noted. Narrative Procedure Note Buffy Agudelo MD - 03/29/2022 IMPRESSION: Single IUP at 32w 4d for growth assessment1. The biometry isappropriate for gestational age. Interval growth is normal. 2. Theamniotic fluid volume is normal.3. Marginal placental cord insertion isagain noted. us Nanci Jolly EMERGENCY ROOM CLINICIAN IMG OB US PROCEDURES Final Result documented in this encounter Visit Diagnoses Diagnosis Marginal insertion of umbilical cord affecting management of mother in third trimester documented in this encounter Care Teams Autocad Draftsman Relationship Specialty Start Date End Date Kit Arriola MD [address] [address] PCP - General Emergency Medicine 12/19/18 documented as of this encounter
--- OUTSIDE RECORDS SUMMARY | 2024-02-17 13:56 | XMS_ITS | Encounter Summary ---
Author Organization [facility] Address [address] [place] [address] Phone Care Team Providers Care Student Name Role Phone Kit Arriola MD Primary Care Provider [phone] Reason for Referral * Diagnostic Imaging (Routine) - Closed Specialty Diagnoses / Procedures Referred By Kimberley t Referred To Contact Diagnoses Supervision of other normal , antepartum Procedures US Ob Follow Up Nanci Jolly NP [address] [place] [address] Phone: tel: fax: [facility] (All Locations) Referral ID Status Reason Start Date Expiration Date Visits Re quested Visits Authorized [id number] Closed 03/29/2022 04/28/2023 1 1 ICAL RECEPTIONIST Reason for Visit * Reason Comments Routine Visit Encounter Details Date Type Department Care Team (Late st Contact Info) Description 03/29/2022 12:45 PM CLERICAL RECEPTIONIST Office Visit [facility] Obstetrics and Gynecology [address] [place] [address] Health 7th Floor [address] [place] [address] [place] [address] [place] [id number] Supervision of other normal , antepartum [...] on file Legal Sex Female 5:56 PM CLERICAL RECEPTIONIST Gender Identity Female 07/16/2022 10:05 AM CDT Sexual Orientation Straight 07/16/2022 10 :05 AM CDT documented as of this encounter Last Filed Vital Signs Vital Sign Reading Time Taken Comments Blood Pressure 122/89 03/29/2022 11:57 AM CLERICAL RECEPTIONIST Pulse - - Temperature - - Respiratory Rate - - Oxygen Saturation - - Inhaled Oxygen Concentration - - Weight 85.4 kg (188 lb 3.2 oz) 03/29/2022 11:57 AM CLERICAL RECEPTIONIST Height 165.1 cm (5' 5 ) 03/29/2022 11:57 AM CLERICAL RECEPTIONIST Body Mass Index 31.32 03/29/2022 11:57 AM CLERICAL RECEPTIONIST documented in this encounter Progress Notes * Nanci Jolly NP - 03/29/2022 12:45 PM CST ARCHIE - Denies lof,bleeding and or ctx's - Reports +FM - growth US efw 2110g (55%), fhr 130, vtx, posterior placenta no previa, marginal cord insertion, fiorella nml - reviewed preferences, no issues RTC in 2 weeks Neli Jolly APRN, NILSON-BC ICAL RECEPTIONIST documented in this encounter Plan of Treatment Not on file documented as of this encounter Results * US Ob Follow Up (04/26/2022 11:13 AM CDT) Fetus# Fetus1 VIEWPOINT Estimated Weight 3,528 g&grams VIEWPOINT Placenta Details posterior, Previa-no, no placental masses VIEWPOINT Presentation Vertex VIEWPOINT Anatomical Region Laterality Modality Abdomen N/A Ultrasound 04/26/2022 11:1 4 AM CDT Impressions 04/26/2022 11:49 AM CDT IUP -36w 4d - LGA growth pattern - the EFW is at the 94%, the AC exceeds the 99% Narrative Procedure Note Talha Peralta MD - 04/26/2022 IMPRESSION: IUP -36w 4d - LGA growth pattern - the EFW is at the 94%, the AC exceedsthe 99% us Nanci Jolly WATCH HAIRSPRING ASSEMBLER IMG OB US PROCEDURES Final Result documented in this encounter Visit Diagnoses Diagnosis Supervision of other normal , antepartum- Primary Supervision of other normal , antepartum documented in this encounter Discontinued Medications Medication Sig Discontinue Reason Start Date End Da te ondansetron (ZOFRAN) 4 mg tablet Take 1 tablet (4 mg total) by mouth every 8 (eight) hours as needed for nausea or vomiting Therapy completed 11/04/2021 03/29/2022 prochlorperazine (COMPAZINE) 10 mg tablet Take 1 tablet (10 mg total) by mouth every 8 (eight) hours as needed for nausea or vomiting Therapy completed 11/21/2021 03/29/2022 documented as of this encounter Care Teams Student Relationship Specialty Start Date End Date Kit Arriola MD [address] [address] PCP - General Emergency Medicine 12/19/18 documented as of this encounter
--- OUTSIDE RECORDS SUMMARY | 2024-02-17 13:56 | XMS_ITS | Encounter Summary ---
Author Organization [facility] Healthcare Address [address] [place] [address] Care Team Providers Care Orthodontic Treatment Coordinator Name Role Phone Kit Arriola MD Primary Care Provider [phone] Reason for Referral * Diagnostic Imaging (Routine) - Closed Specialty Diagnoses / Procedures Referred By Contac t Referred To Contact Diagnoses Supervision of other normal , antepartum Procedures US Ob Follow Up Nanci Jolly NP [address] [address] Phone: tel: fax: [facility] (All Locations) Referral ID Status Reason Start Date Expiration Date Visits Re quested Visits Authorized [id number] Closed 03/29/2022 04/28/2023 1 1 Reason for Visit * Diagnostic Imaging (Routine) - Closed Specialty Diagnoses / Procedures Referred By Contac t Referred To Contact Diagnoses Supervision of other normal , antepartum Procedures US Ob Follow Up Nanci Jolly NP [address] [address] Phone: tel: fax: [facility] (All Locations) Referral ID Status Reason Start Date Expiration Date Visits Re quested Visits Authorized [id number] Closed 03/29/2022 04/28/2023 1 1 Encounter Details Date Type Department Care Team (Latest Contact Info) Description 04/26/2022 11:13 AM CDT - 04/26/2022 11:59 PM CDT Hospital Encounter [facility] - Ultrasound [address] 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
--- OUTSIDE RECORDS SUMMARY | 2024-02-17 13:56 | XMS_ITS | Encounter Summary ---
Author Organization [facility] Healthcare Address [address] [place] [address] Care Team Providers Care Maintenance Mechanic 2Nd Shift Name Role Phone Kit Arriola MD Primary Care Provider [phone] Reason for Visit * Auth/Cert (Routine) Specialty Diagnoses / Procedures Referred By Contac t Referred To Contact Diagnoses Encounter for induction of labor Procedures NA Referral ID Status Reason Start Date Expiration Date Visits Re quested Visits Authorized [id number] 1 1 Encounter Details Date Type Department Care Team (Latest Contact Info) Description 05/14/2022 8:25 PM CDT - 05/17/2022 4:31 PM CDT Hospital Encounter [address] [id number] Marylin Rene MD [address] [facility] [phone] [place] [address] Sumi Castillo MD [address] [facility] [id number] [place] [address] Kayla Fung MD [address] [facility] [phone] [place] [address] Discharge Disposition: Discharge to home or self [...] in a jail (including now)? No 05/18/2022 Personal Safety Answer Date Recorded Have you ever been in or are you currently in a harmful physical or emotional relationship or is someone making you feel afraid or unsafe? 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 Gender Identity Female 07/16/2022 10:05 AM CDT Sexual Orientation Straight 07/16/2022 10 :05 AM CDT documented as of this encounter Last Filed Vital Signs Vital Sign Reading Time Taken Comments Blood Pressure 125/84 05/17/2022 8:05 AM CDT Pulse 87 05/17/2022 8:05 AM CDT Temperature 36.6 ??C (97.9 ??F) 05/17/2022 8:05 AM CD T Respiratory Rate 18 05/17/2022 8:05 AM CDT Oxygen Saturation 98% 05/17/2022 8:05 AM CDT Inhaled Oxygen Concentration - - Weight 90 kg (198 lb 8 oz) 05/14/2022 8:35 PM CD T Height 165.1 cm (5' 5 ) 05/14/2022 8:35 PM CDT Body Mass Index 33.03 05/14/2022 8:35 PM CDT documented in this encounter Discharge Summaries * Buffy Vanegas NP - 05/17/2022 10:26 AM CDT Inpatient Discharge Summary Admitting Provider: Sumi Castillo MD Discharge Provider: Kayla Fung,* Admission Date: 05/14/2022 Discharge Date: 05/17/2022 Delivery Date/Time: 05/15/2022 at 6:49 AM Delivery method: [351] Primary Discharge Diagnosis: Intrauterine at 39w2d, delivered Secondary Discharge Diagnosis: Medical Conditions Diagnosis Supervision of other normal , antepartum Encounter for induction of labor delivery delivered Procedures Performed: Procedure(s): SECTION Low transverse Other Treatments: Magnesium sulfate therapy: No Blood transfusion: No Hospital Course: Roxana Briseno is a 32 y.o. female at 39w2d weeks gestation, dated by IVF=1 who presentedto L&D for risk reducing induction of labor. Her induction was started with misoprostol and a cook catheter. FHT with variable decelerations within 4 hours of placing misoprostol. Her CC came outbut she continued to have variables thus unable to start pitocin. An amniotomy was eventually performed. She continued to have decelerations despite repositioning and terbutaline. After reviewing the patient's labor course, she has met criteria for: Non- reassuring status remote from delivery with recurrent variable decelerations despite interventions. It was recommended that we proceed with a delivery. Roxana Briseno had the opportunity to ask questions. A le tez 2 delivery was called. The risks, benefits, and alternatives were discussed with the patient at length. She was in agreement. The labor team, anesthesia team, and pediatrics team were made aware. She underwent a primary Low Transverse Section via [place]. for non-reassuring status at 39w2d. She had an epidural placed for anesthesia. She delivered a viable male infant with apgars 2 and 9 at one and five minutes of life respectively. Delivery was uncomplicated. See operative report for full details. The patient was transferred to . Her course was uncomplicated. Prior to discharge, her pain was well controlled, she was voiding, passing gas, ambulating, and meeting all milestones. # Mother/Baby: The patient has chosen to breastfeed her infant and has chosen condoms for contraception. Discharge Details Physical Exam at Discharge: Discharge Condition: Stable Pulse: 87 Resp: 18 BP: 125/84 Temp: 36.6 ??C (97.9 ??F) Weight: 90 kg (198 lb 8 oz) Problem Delivery Delivered # ID: Afebrile. No signs/symptoms of infection. # Heme: EBL 800 mL. No symptoms acute blood loss anemia. POD#1 Hgb 7.7. Will start PO iron supplementation. # CV/Pulm: MR BP not meeting criteria for hypertensive diagnosis at this time; continue to monitor.Normotensive over the last 24 hrs. # GI/: [...] MOF: # Disposition: Continue routine postoperative care See full physical exam from progress note on day of discharge. Lab Results Component Value Date HCT 23.1 (L) 05/16/2022 ABORH A Positive 05/14/2022 RUBELIGG 3.73 11/03/2021 Immunization History Administered Date(s) Administered Influenza, Quadrivalent, Cell Culture-based MDCK, Preservative Free, Antibiotic Free, Xuisvjwscilzp70/11/2022 Pfizer SARS-CoV-2 Vaccination (12+ yrs) PURPLE 02/09/2020, 03/01/2020 Tdap 03/01/2022 Discharge Disposition: Discharge to home or self care Code Status at Discharge: Full Discharge Instructions: SEE AVS Discharge Medications: Your medication list ASK your doctor about these medications folic acid 1 mg tablet No dose, route, or frequency recorded. Commonly known as: FOLVITE PrePlus 27 mg iron- 1 mg tablet No dose, route, or frequency recorded. Generic drug: PNV with [id number]-VU Outpatient Follow-Up: Future Appointments Date Time Provider Department Center 06/26/2022 1:00 PM OB TEAM 2 [facility] 7 MOTION PICTURE NARRATOR [facility] OB Buffy Vanegas NP 05/17/22 Cosigned by Kayla Fung MD at 05/17/2022 3:37 PM CDT documented in this encounter Discharge Instructions * Discharge Instructions* Buffy Vanegas NP - 05/15/2022 10:46 AM CDT Discharge Instructions - Section In order to minimize social contact during COVID19 precautions, your visit maybe over the phone. Please remember to wash your hands frequently, do not touch your face, and avoid anyone with feversor cough. Stay at home as much as possible and practice social distancing. COVID19 Precautions: * Wash your hands frequently * Do not touch your face * Avoid anyone with fevers or cough * DO NOT come to clinic or the hospital with mild cold or flu-like symptoms, first call our OB communication center at [phone]. * If you have SEVERE illness including persistent shortness of breath, high fever not responsive totylenol, or nausea and vomiting preventing you from adequately orally hydrating, then call your doctor or go to the ER. Call Your Doctor If: * You have a fever of 100.4 degrees or higher. * You have vaginal bleeding more than your normal menstrual period. * You are passing large blood clots (larger than an egg). * You have a strong foul odor coming from your vagina. * You have burning, pain or difficulty urinating. * Your incision has redness, drainage, bad odor, or if the incision separates. * You have nausea, vomiting or increased abdominal pain. * You have redness or pain in your calves, legs or inner thighs. * You have red, swollen painful breasts. * You have other questions or concerns. * You have a headache, difficulty breathing, pain in your upper abdomen, or changes in your vision. * You have decreased urine output. * Your level of consciousness changes. * If you have a blood pressure cuff at home, check your blood pressure once a day and write it down. Call your doctor if your blood pressure is greater than 160 (top number) or 110 (bottom number). Diet: * Follow your regular diet. * Maintain liquid intake of 8 -10 glasses per day. * For constipation - drink prune juice or take stool softener medication ordered by your doctor. Eat foods with fiber (examples - raisins, prunes, washed raw vegetables, whole wheat bread, and bran). Activity: * Do not put anything in your vagina for 6 weeks. NO douching, tampons or sexual intercourse. * Weakness and fatigue are common. * Limit activities and visitors and increase as energy levels return. Rest as often as possible. * Lift nothing heavier than 10 pounds for 2 weeks. * No driving for 1-2 weeks or while taking narcotics. * If you are not , milk will come in between the 3rd and 4th day . Wear tight support bra and use ice packs to relieve discomfort. Care Instructions: * You may shower or shampoo your hair. You may take a full bath about 2 weeks after delivery. * Keep incision clean and dry. Every day, gently wash your incision with mild soap and warm water and pat dry. * If you have steri strips, you may still shower. The steri strips may fall of on their own, but ifthey do not, remove them after 5 days. * If you have orlin, please make an appointment with your doctor to have them removed in 10 days. Contraception: DESIRES CONDOMS / DECLINES CONTRACEPTION: You can get within 2 weeks of giving , though we recommend no sexual intercourse for at least 6 weeks. Condoms can be an effective method of control. However, other methods of control are better at preventing . Use a new condom every time you have sex. If you do not use a condom, or the condom breaks, you can use emergency contraceptive pills (Plan B) to preventpregnancy. You can get them at a pharmacy without a prescription. You can also get a prescription by calling your doctor. Emergency contraception works best if used right away. However, you can stilluse it within 5 days after unprotected sex. Feeding: : Follow unrestricted . Feed your baby based on baby's hunger cues (or atleast 8-12 feedings per 24 hours). Do NOT supplement unless instructed by Office Machine Punch Operator. Call your Office Machine Punch Operator if your baby has poor eating habits (examples: feedings decrease, no feedings in 6 hours, or spits up more than ?? of their feeding for 2 consecutive feedings). Once your baby is 5-6 days old, you should expect at least 5 wet diapers and 3 soiled diapers per day. Outpatient Follow Up: Every patient needs a visit. We are currently scheduling some in person and some telemedicine visits for your visits. We are trying to keep you safe and minimize social contact due to COVID19 precautions. If you do not hear from your primary OB to set up your telephone or in person visit, please call your primary OB to set up a telephone or in person visit. Thank you for understanding and remember to wash your hands and avoid anyone with fevers or cough. Stay at home as much as possible and practice social distancing. If you yourself develop fever >100.4F, a new cough, or shortness of breath please call our centralized OB communication center at [phone]. Do not come to the hospital or clinic until you speak with a provider. *Contact Information for your primary OB: [facility]) - [facility] - [id number] [place], [place] [id number] to schedule an appointment to be seen within 2 and 6 weeks. No future appointments. Discharge Medications: Take the following medications. Your medication list ASK your doctor about these medications folic acid 1 mg tablet No dose, route, or frequency recorded. Commonly known as: FOLVITE PrePlus 27 mg iron- 1 mg tablet No dose, route, or frequency recorded. Generic drug: PNV with [id number] documented in this encounter Medications at Time of Discharge acetaminophen 500 mg capsuleIndicatio ns:Pain Take 2 capsules (1,000 mg total) by mouth every 6 (six) hours as needed for pain 60 tablet 05/17/2022 06/26/2022 docusate sodium (COLACE) 100 mg capsuleIndicatio ns:constipation, Stool Softener Take 1 capsule (100 mg total) by mouth 2 (two) times a day 30 capsule 05/17/2022 06/26/2022 folic acid (FOLVITE) 1 mg tablet 09/24/2021 06/26/2022 ibuprofen (ADVIL,MOTRIN) 600 mg tabletIndication s:Cramps Take 1 tablet (600 mg total) by mouth every 6 (six) hours as needed for pain 60 tablet 05/17/2022 06/26/2022 oxyCODONE (ROXICODONE) 5 mg immediate release tabletIndication s:Pain Take 1 tablet (5 mg total) by mouth every 4 (four) hours as needed for pain 15 tablet 05/17/2022 06/26/2022 PrePlus 27 mg iron- 1 mg tablet 07/18/2021 06/26/2022 documented as of this encounter Ordered Prescriptions Prescription Sig Dispense Quantity Refills Last Filled Start Date End Date oxyCODONE (ROXICODONE) 5 mg immediate release tabletIndications: Pain Take 1 tablet (5 mg total) by mouth every 4 (four) hours as needed for pain 15 tablet 05/17/2022 3 ibuprofen (ADVIL,MOTRIN) 600 mg tabletIndications: Cramps Take 1 tablet (600 mg total) by mouth every 6 (six) hours as needed for pain 60 tablet 05/17/2022 3 acetaminophen 500 mg capsuleIndications :Pain Take 2 capsules (1,000 mg total) by mouth every 6 (six) hours as needed for pain 60 tablet 05/17/2022 3 docusate sodium (COLACE) 100 mg capsuleIndications :constipation,Stoo l Softener Take 1 capsule (100 mg total) by mouth 2 (two) times a day 30 capsule 05/17/2022 3 documented in this encounter Discharge Disposition Disposition Code Departure Means Destination Discharge to home or self care documented in this encounter Progress Notes * Buffy Vanegas, GABRIELLE - 05/17/2022 8:58 AM CDT Post Progress Note Admission Date: 05/14/2022 SOPHIE Reyesle Yeison Briseno is a 32 y.o. postop day 2 s/p . Pain: Controlled Bleeding: lochia minimal Oral Intake: taking regular diet Voiding: without difficulty Bowel function: flatus and bowel movement Ambulating: yes Mood: stable Feeding: No acute events overnight. Denies MIRAMONTES, visual changes, chest pain, SOB, or RUQ pain. no complaints OBJECTIVE Vitals: Temp Min: 36.6 ??C (97.9 ??F) Max: 36.8 ??C (98.2 ??F) Pulse Min: 87 Max: 101 BP Min: 103/64 Max: 125/84 Resp Min: 16 Max: 18 SpO2 Min: 98 % Max: 99 % Physical Exam General: No acute distress. Neurologic: Alert and oriented Lungs: Non-labored. Abdomen: Soft, non distended, non-tender. Positive bowel sounds. Fundus firm below umbilicus. Incision: Dressing removed. Steri-strips c/d/I. Well approximated with no drainage. Extremities: Warm and well-perfused. +1 bilateral lower extremity edema. No redness or calf tenderness. Pelvic: Deferred. Lab Review: No results found for this or any previous visit (from the past 24 hour(s)). Current Meds: Current Facility-Administered Medications Medication Dose Route Frequency Provider Last Rate Last Admin acetaminophen (TYLENOL) tablet 1,000 mg 1,000 mg oral Q6H Geetha Early MD 1,000 mg at 05/17/22 0449 diphenhydrAMINE (BENADRYL) injection 25 mg 25 mg intravenous Q6H PRN Melva Garcia MD 25 mgat 05/16/22 1059 docusate sodium (COLACE) capsule 100 mg 100 mg oral BID Geetha Early MD 100 mg at 05/17/22 0900 enoxaparin (LOVENOX) syringe 40 mg 40 mg subcutaneous Daily-2100 Geetha Early MD 40 mg at 05/16/22 210 ferrous sulfate tablet 325 mg 65 mg of elemental iron oral Daily with breakfast Melva Garcia MD 325 mg at 05/17/22 0900 hydrocortisone (ANUSOL-HC) 2.5 % rectal cream rectal TID PRN Geetha Early MD ibuprofen (ADVIL,MOTRIN) tablet 600 mg 600 mg oral Q6H Geetha Early MD 600 mg at 05/17/22 0449 Lactated Ringer's (LR) infusion 125 mL/hr intravenous Continuous Geetha Early MD mxsmmnw-rncmk-deuyfgr (MMR) 1,000-12,500 TCID50/0.5 mL live vaccine 0.5 mL 0.5 mL subcutaneous During hospitalization Geetha Early MD ondansetron ODT (ZOFRAN-ODT) disintegrating tablet 4 mg 4 mg oral Q6H PRN Geetha Early MD Or ondansetron (ZOFRAN) injection 4 mg 4 mg intravenous Q6H PRN Geetha Early MD oxyCODONE (ROXICODONE) tablet 5 mg 5 mg oral Q4H PRN Geetha Early MD 5 mg at 05/16/22 1509 PNV with rbaqkqg-smed-PS tablet 1 tablet 1 tablet oral Daily Geetha Early MD 1 tablet at 05/17/22 0900 polyethylene glycol (MIRALAX) packet 17 g 17 g oral Daily PRN Geetha Early MD senna (SENOKOT) tablet 1 tablet 1 tablet oral BID Geetha Early MD 1 tablet at 05/17/22 0900 simethicone (MYLICON) chewable tablet 80 mg 80 mg oral QID PRN (after meals & nightly) Geetha Early MD sodium chloride (OCEAN) 0.65 % nasal spray 1 spray 1 spray each nostril Q2H PRN Melva Garcia MD 1 spray at 05/16/22 1559 sodium chloride 0.9% flush 0.5-20 mL 0.5-20 mL intra-catheter Q8H ANGIE Geetha Early MD 10 mLat 05/16/22 2200 sodium chloride 0.9% flush 0.5-20 mL 0.5-20 mL intra-catheter PRN Geetha Early MD 10 mL at 05/15/22 1523 sodium chloride 0.9% irrigation PRN Sumi Castillo MD 1,000 mL at 05/15/22 0637 sterile water irrigation PRN Sumi Castillo MD 1,000 mL at 05/15/22 0637 varicella zoster (VARIVAX) vaccine - live 0.5 mL 0.5 mL subcutaneous During hospitalization Geetha Early MD ASSESSMENT/PLAN Roxana Briseno is a 32 y.o. female postop day 2 s/p . Problem Delivery Delivered # ID: Afebrile. No signs/symptoms of infection. # Heme: EBL 800 mL. No symptoms acute blood loss anemia. POD#1 Hgb 7.7. Will start PO iron supplementation. # CV/Pulm: MR BP not meeting criteria for hypertensive diagnosis at this time; continue to monitor.Normotensive over the last 24 hrs. # GI/: [...] MOF: # Disposition: Continue routine postoperative care Buffy Vanegas CREPING MACHINE OPERATOR HELPER-C 05/17/22 Cosigned by aKyla Fung MD at 05/17/2022 3:37 PM CDT Associated attestation - Kayla Fung MD - 05/17/2022 3:37 PM CDT I have seen and examined the patient on 05/17/22. I agree with the findings and plan of care as documented in the resident's/fellow's note.. * Melva Garcia MD - 05/16/2022 6:18 AM CDT Post Progress Note Delivery Date/Time: 05/15/2022 at 6:49 AM Delivery method: [351] Subjective Flatus: Yes Pain: Well controlled Diet: Tolerating regular diet. Ambulating independently Voiding spontaneously Lochia less than menses Feels well this morning, sitting up in bed bottle feeding baby. Still undecided about contraception, invited and answered all questions. Scheduled Medications acetaminophen, 1,000 mg, oral, Q6H docusate sodium, 100 mg, oral, BID enoxaparin, 40 mg, subcutaneous, Daily-2100 ferrous sulfate, 65 mg of elemental iron, oral, Daily with breakfast ibuprofen, 600 mg, oral, Q6H viatmin, 1 tablet, oral, Daily senna, 1 tablet, oral, BID sodium chloride 0.9%, 0.5-20 mL, intra-catheter, Q8H ANGIE PRN Medications diphenhydrAMINE hydrocortisone HYDROmorphone HYDROmorphone nbzvjol-remez-kggeupp naloxone ondansetron ODT OR ondansetron ondansetron ODT OR ondansetron oxyCODONE oxyCODONE polyethylene glycol simethicone sodium chloride 0.9% sodium chloride 0.9% sterile water varicella zoster Vitals: Temp: [36.6 ??C (97.9 ??F)-37.2 ??C (99 ??F)] 36.8 ??C (98.2 ??F) Pulse: [73-103] 78 BP: (103-147)/(54-88) 117/69 Resp: [16-17] 16 SpO2: [97 %-100 %] 99 % Intake/Output Summary (Last 24 hours) at 05/16/2022 0726 Last data filed at 05/16/2022 0615 Gross per 24 hour Intake -- Output 810 ml Net -810 ml Physical Exam General: No acute distress. Cardiovascular: Regular rate and rhythm. Lungs: Non-labored. Abdomen: Soft, non-distended, non-tender to palpation. Fundus below umbilicus. Bandage c/d/i Extremities: Warm and well-perfused. Neuro: Globally intact Recent Labs Lab Units 05/16/22 0451 05/14/22 2124 WBC K/cumm 17.6* 11.2* HEMOGLOBIN g/dL 7.7* 10.3* HEMATOCRIT % 23.1* 31.2* PLATELETS K/cumm 304 328 CREATININE mg/dL -- 0.72 AST Units/L -- 16 ALT Units/L -- 14 GLUCOSE mg/dL -- 101 Assessment and Plan 32 y.o. PPD#1from PLTCS. Problem Delivery Delivered # ID: Afebrile. No signs/symptoms of infection. # Heme: EBL 800 mL. No symptoms acute blood loss anemia. POD#1 Hgb 7.7. Will start PO iron supplementation. # CV/Pulm: MR BP not meeting criteria for hypertensive diagnosis at this time; continue to monitor. # GI/: Tolerating PO. UOP initially low, s/p 1 L LR Bolus. Voiding spontaneously. # Pain: Controlled with above regimen. Post DVT prophylaxis: The patient has the following MAJOR risk factors none and the following MINOR risk factors ceserean delivery and BMI 30-39. Lovenox will be ordered for VTE prophylaxis . # MOC: Remains Undecided # MOF: # Disposition: Continue routine postoperative care Melva Garcia MD 05/16/22 R4 OB Attestation: I have reviewed the above documentation and agree as edited. PPD1 s/p pLTCS. MR Christine not meeting criteria. Undecided on MOC. Meeting milestones, continue routine PP care. Mary Soriano MD CURTAIN STITCHER PGY-4 05/16/22 7:46 AM Cosigned by Kayla Fung MD at 05/17/2022 3:37 PM CDT Associated attestation - Kayla Fung MD - 05/17/2022 3:37 PM CDT I have seen and examined the patient on 05/16/2022. I agree with the findings and plan of care as documented in the resident's/fellow's note.. * Osmin Duffy MD - 05/15/2022 5:11 AM CDT DECEL NOTE To room for decel. FHTs down to 60s. Team decel called. Pt repositioned to hands and knees without improvement. SVE 6/75/-2. Amniofusion running. Terbutaline given at 0503 , given 6 back to back contractions. FHT improved to 150s. Decel lasted [address] Castillo updated and en route. Plan: - Repositioned to L lying with stable FHT - Discussed possible indication for CS if continued NRFS - Will closely monitor Osmin Duffy MD * Osmin Duffy MD - 05/15/2022 4:46 AM CDT Starting AI given continued variable decelerations. Repositioned to L lying with improvement in decelerations. Reassured by moderate variability. Osmin Duffy MD * Osmin Duffy MD - 05/15/2022 4:29 AM CDT Labor Update Note S: Patient s/p epidural and comfortable O: BP 144/95 Pulse 98 Temp 37 ??C (98.6 ??F) (Oral) Resp 18 Ht 165.1 cm (5' 5 ) Wt 198 lb8 oz (90 kg) LMP 08/13/2021 SpO2 100% BMI 33.03 kg/m?? SVE: /-2 Monitoring: Baseline: 130 bpm, Variability: Moderate, Accelerations: Present and Decelerations: Yes, variables Uterine Activity: Contractions present, q1-3 minutes A/P: 32 y.o. at 39w2d Category 2 tracing, reassured by variability/accelerations Vitals: MR BPx2 at 0400 Additional medications/infusions: none AROM with moderate volume of clear fluid, IUPC placed for possible AI given recurrent variables. Osmin Duffy MD * Carolina Lomas MD - 05/15/2022 3:38 AM CDT Labor Update Note S: Patient Feeling painful contractions O: BP 136/70 Pulse 86 Temp 37 ??C (98.6 ??F) (Oral) Resp 18 Ht 165.1 cm (5' 5 ) Wt 198 lb8 oz (90 kg) LMP 08/13/2021 SpO2 99% BMI 33.03 kg/m?? SVE: /-3; no palpable cord examined by myself Monitoring: Baseline: 150 bpm, Variability: Moderate, Accelerations: Absent and Decelerations: Yes, recurrent variable decelerations Uterine Activity: Contractions present, q2-3 minutes A/P: 32 y.o. at 39w2d Category 2 tracing; reassured by moderate variability and improvement with repositioning. Patient making cervical change and desires epidural. Reports her last labor moved quickly. Will await epidural (Anesthesiology called) then rupture membranes and start amnioinfusion if persistent variable decelerations. Vitals Reviewed and normal Carolina Lomas MD * Osmin Duffy MD - 05/15/2022 3:11 AM CDT DECEL NOTE To room for decel. FHTs down to 60s. Team decel called. Pt repositioned to hands and knees with improvement. SVE /-3. . Terbutaline not given. FHT improved to 130. Decel lasted [address] Castillo updated. Plan: - Repositioned to L lying - Will hold fentanyl BUDGET CLERK at this time - Will hold starting OT pending tolerance and contraction pattern Osmin Duffy MD * Geetha Early MD - 05/15/2022 3:02 AM CDT Labor Update Note S: Patient feeling some mild ctx, had fentanyl BUDGET CLERK. O: BP 136/70 Pulse 86 Temp 37 ??C (98.6 ??F) (Oral) Resp 18 Ht 165.1 cm (5' 5 ) Wt 198 lb8 oz (90 kg) LMP 08/13/2021 SpO2 99% BMI 33.03 kg/m?? SVE: /-3 Monitoring: Baseline: 140 bpm, Variability: Moderate, Accelerations: Present and Decelerations: Yes, variables Uterine Activity: Contractions present, q2-3 minutes A/P: 32 y.o. at 39w2d Category II tracing, reassured by variability and accelerations Vitals: reviewed and normal Additional medications/infusions: - s/p CC - FHT multiple variables. Decel at 0302 to 50s with return to baseline. Team decel called. Please see Dr. Duffy note. Repositioning prior to starting OT. Geetha Early MD CURTAIN STITCHER PGY-1 * Carolina Lomas MD - 05/15/2022 1:05 AM CDT Labor Update Note S: Patient comfortable with fentanyl BUDGET CLERK O: BP 130/76 Pulse 83 Temp 36.8 ??C (98.3 ??F) (Oral) Resp 18 Ht 165.1 cm (5' 5 ) Wt 198 lb 8 oz (90 kg) LMP 08/13/2021 SpO2 99% BMI 33.03 kg/m?? SVE: Fingertip /25 /Ballotable ~ 2 cm around CC which is still in place Monitoring: Baseline: 125 bpm, Variability: Moderate, Accelerations: Present and Decelerations: Yes, intermittent variable decelerations Uterine Activity: Irregular contractions A/P: 32 y.o. at 39w2d Category II tracing, reassured by moderate variability; continue to re-position Vitals: reviewed and normal Additional medications/infusions: - Miso/CC at 2145 - PCN for GBS+ Carolina Lomas MD * Geetha Early MD - 05/15/2022 12:03 AM CDT Labor Update Note S: Patient comfortable O: BP 130/76 Pulse 83 Temp 36.8 ??C (98.3 ??F) (Oral) Resp 18 Ht 165.1 cm (5' 5 ) Wt 198 lb 8 oz (90 kg) LMP 08/13/2021 SpO2 99% BMI 33.03 kg/m?? SVE: Fingertip /25 /Ballotable Monitoring: Baseline: 120 bpm, Variability: Moderate, Accelerations: Present and Decelerations: None Uterine Activity: Irregular contractions A/P: 32 y.o. at 39w2d Category I tracing Vitals: reviewed and normal Additional medications/infusions: -Miso/CC at 2145 - PCN for GBS+ Geetha Early MD CURTAIN STITCHER PGY-1 * Carolina Lomas MD - 05/14/2022 9:51 PM CDT Mechanical Cervical Ripening Device Insertion Note A Cook Catheter was placed and filled with 60 cc of fluid in the uterine balloon and placed on tension at 2145. 25 mcg misoprostol placed vaginally. Patient tolerated well. Carolina Lomas MD documented in this encounter H&P Notes * Geetha Early MD - 05/14/2022 7:06 PM CDT Obstetrics H&P Chief Complaint: rrIOL Estimated Date of Delivery: 05/20/22 Provider: [facility] HPI: Roxana Briseno is a 32 y.o. female at 39w1d gestation, dated by IVF=1 presenting forrrIOL . Her is complicated by IVF , h/o ectopic s/p R salpingectomy, h/o PCOS, resolved low lying placenta previa, MCI, LGA (EFW 94%ile) with AC >99ile, GBS+. 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 History of Abnormal Pap: None STD History: none Past Medical History: Diagnosis Date History of ectopic Chronic hypertension: No Diabetes: No Asthma: No Past Surgical History: Procedure Laterality Date ECTOPIC SURGERY US ABDOMEN COMPLETE W LIVER DOPPLER (C) Right 11/12/2017 US ABDOMEN COMPLETE W LIVER DOPPLER (C) Right 11/13/2017 Social History Tobacco Use Smoking status: Never Smokeless tobacco: Never Substance and Sexual Activity Drug use: Never Sexual activity: Yes Partners: Male control/protection: None Alcohol Use: Not At Risk Frequency of Alcohol Consumption: Never Average Number of Drinks: Patient does not drink Frequency of Binge Drinking: Never Support System: Supported by partner Safe at home: Yes family history is not on file. Family history of bleeding or clotting disorders: No Family history of defects, genetic disorders, or developmental delay: No Allergies Allergen Reactions Bactrim [Sulfamethoxazole-Trimethoprim] Hives Latex Hives Hives Morphine Hives and Itching Itching Vancomycin Hives Itching Tramadol Itching HOME MEDICATIONS : folic acid (FOLVITE) 1 mg tablet PrePlus 27 mg iron- 1 mg tablet Review of Sys: Negative except per HPI Vitals: Pulse: [97] 97 Resp: [18] 18 Physical Exam: General: NAD, mood appropriate Cardiovascular: Regular rate and rhythm Pulmonary: Clear to ausculation bilaterally Abdomen: Gravid, non-tender Extremities: Warm and well perfused Speculum Exam: deferred Cervix: Fingertip /25 /Ballotable Monitoring: Baseline: 135 bpm, Variability: Moderate, Accelerations: Present and Decelerations: None Uterine Activity: No contractions seen on toco Interpretation: Reactive Ultrasound: Vertex presentation Posterior placenta Previa: No Estimated Weight: 3528g (94%) on 04/26 Labs: Lab Results Component Value Date ABORH A Positive 11/21/2021 SCRIBEDABORH A+ 11/03/2021 IDCOOMB Negative 11/21/2021 SCRINDANTIGL negative 11/03/2021 [id number] NON-REACTIVE 04/28/2022 LABRPR NON-REACTIVE 02/08/2022 RUBELIGG 3.73 11/03/2021 HEPBSAG NON-REACTIVE 11/03/2021 VZVIGG 873.50 11/03/2021 GBS pos (Resulted on: 04/26/22) Assessment and Plan Problem Encounter for Induction of Labor Roxana Briseno is a 32 y.o. female at 39w1d who is dated by IVF=1 and is being admitted for an elective induction of labor. Admit to L&D: Consents signed and placed in chart. Labs: CBC and T&S pending. Induction of labor with miso and CC. FWB: Continuous monitoring. Reactive tracing. ID: 3rd trimester HIV (>28 wga) negative on 04/28. GBS positive on 04/26, will start PCN. RPR on admission: pending. Membrane Status: intact. Indications for UDS: none. Verbal consent obtained for UDS: Not indicated. MOF: Plans to breastfeed. Urine drug screen not indicated. Patient informed of results: N/A. MOC: Undecided on contraception. Pain management: Undecided on epidural. Post DVT prophylaxis: The patient has the [...] on risk of shoulder/abd dystocia of admission. Plan discussed with Dr. Castillo. Geetha Early MD CURTAIN STITCHER PGY-1 Cosigned by Sumi Castillo MD at 05/15/2022 1:55 PM CDT Associated attestation - Sumi Castillo MD - 05/15/2022 1:55 PM CDT I have seen and examined the patient on 05/15/22. I agree with the findings and plan of care as documented in the resident's/fellow's note.. documented in this encounter Miscellaneous Notes * Provider Query - Kayla Fung MD - 05/17/2022 4:31 PM CDT Specify the condition you are evaluating, treating or monitoring and document in the medical recordand the form below. ____ Acute blood loss anemia ____ Acute blood loss anemia on baseline chronic anemia ___x_ Iron deficiency anemia ____ Precipitous drop in Hemoglobin or Hematocrit ____ Findings clinically insignificant ____ Other (specify below) Additional Provider Response: Po iron started for acute blood loss anemia Clinical Indicators/Treatments: Patient was admitted for induction on 05/14/2022 and delivered via on 05/15. Admission labs showed Hgb 10.3, Hct 31.2. Estimated blood loss during delivery was 800 mL. Anesthesia evaluation: Hepatic / Heme + History of anemia - iron deficiency 05/16 Progress note: # Heme: EBL 800 mL. No symptoms acute blood loss anemia. POD#1 Hgb 7.7. Will start PO iron supplementation. Discharge summary: # Heme: EBL 800 mL. No symptoms acute blood loss anemia. POD#1 Hgb 7.7. Will start PO iron supplementation. Use of terms such as likely, suspected, possible, or probable (associated with a specific diagnosisthat is being evaluated, monitored, or treated as if it exists) are acceptable and can be coded in the inpatient setting when documented at the time of discharge. This documentation will become part of the patient???s medical record. Sincerely, [facility] Health Information Management * Initial Assessments - Sammi Lopez LCSW - 05/17/2022 3:59 PM CDT Reason for Admission ARGELIA (Roxana Briseno 1990) was admitted on 05/14/2022 for Encounter for induction of labor [Z34.90]. Social Work referral for SDOH check-in. 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 Pediatric follow-up to be scheduled with [facility]. Medical insurance coverage is through [employer]. Information Baby boy was born on 05/15/2022 at EGA 39.2 weeks and has been named Nicolas. Delivery was .[place] weighed 7lbs 4.4oz at delivery. will be formula fed. This is mother's 2nd child. Social History Current address is [address] [address], where she lives with spouse and children. Currently [phone] (home) [phone] (work) is the best phone number for future contact. Mother noted to have 1 other child(hiram): Lorene (2015) MOB reports that her SO and family will be a positive support for her and her child. Father of the baby, Luke Briseno, can be reached at [phone]. FOB has been present and supportive at the hospital. Mood and Anxiety Roxana Briseno has no history of mental health concerns. Social Work and Roxana Briseno discussed the signs and symptoms of Mood and Anxiety Disorder. Social Work discussed and normalized increase in emotions and the importance of self-care. Social Work encouraged new mom to take time for herself and utilize supports available. MOB engaged inconversation and demonstrates knowledge. Resources Provided and Goals Addressed Social Determinants of Health: Family has diapers, safe sleep location, bottles, clothing, and car seat for . Family reports no barriers to accessing food. Strengths MOB is open and receptive to Social Work intervention, education, and resources. Safe Discharge Plan Mother bonding well with . Preparations have been made at home for and social supports are available. Follow-up medical care has been arranged. Family is connected to resources and will utilize services as needed. There are no concerns for a safe discharge for with family. Social Work will follow for support and additional needs should they arise. RAS Seo, IMITATION MARBLE MECHANIC [employer] Supervisor [facility] * Plan of Care - Delia Beyer RN - 05/17/2022 9:53 AM CDT Problem: Activity: Goal: Will verbalize the importance of balancing activity with adequate rest periods Outcome: Progressing Problem: Lack of Knowledge: Goal: Will have increased knowledge of Care Outcome: Progressing Problem: Coping: Goal: Ability to cope will improve Outcome: Progressing Goal: Ability to identify and utilize available resources and services will improve Outcome: Progressing Problem: Life Cycle: Goal: Risk for hemorrhage will decrease Outcome: Progressing Goal: Chance of risk for complications during the period will decrease Outcome: Progressing Problem: Nutritional: Goal: Dietary intake will improve Outcome: Progressing Goal: Mother's verbalization of comfort with process will improve Outcome: Progressing Problem: Role Relationship: Goal: Ability to interact appropriately with will improve Outcome: Progressing Problem: Sensory: Goal: General experience of comfort will improve Outcome: Progressing Problem: Activity: Goal: Ability to tolerate increased activity will improve Outcome: Progressing Problem: Bowel/Gastric: Goal: Gastrointestinal status for postoperative course will improve Outcome: Progressing Problem: Lack of Knowledge: Goal: Knowledge of Section Care will improve Outcome: Progressing Problem: Life Cycle: Goal: Chance of risk for complications during the period will decrease Outcome: Progressing Problem: Physical Regulation: Goal: Postoperative complications will be avoided or minimized Outcome: Progressing Problem: Respiratory: Goal: Ability to maintain adequate ventilation will improve Outcome: Progressing Problem: Role Relationship: Goal: Ability to demonstrate positive interaction with the child will improve Outcome: Progressing Problem: Sensory: Goal: Pain level will decrease Outcome: Progressing Goal: Satisfaction with pain management regimen will improve Outcome: Progressing Problem: Skin Integrity: Goal: Demonstration of wound healing without infection will improve Outcome: Progressing Goal: Ability to participate in self-care as condition permits will improve Outcome: Progressing Problem: Urinary Elimination: Goal: Ability to reestablish a normal urinary elimination pattern will improve Outcome: Progressing Goals: Clinical Goals for the Shift: vss, pain controlled, beverly with baby Summary: progressing well towards discharge * Plan of Care - Kayla Merino RN - 05/16/2022 10:46 PM CDT Problem: Activity: Goal: Will verbalize the importance of balancing activity with adequate rest periods Outcome: Progressing Problem: Lack of Knowledge: Goal: Will have increased knowledge of Care Outcome: Progressing Problem: Coping: Goal: Ability to cope will improve Outcome: Progressing Goal: Ability to identify and utilize available resources and services will improve Outcome: Progressing Problem: Life Cycle: Goal: Risk for hemorrhage will decrease Outcome: Progressing Goal: Chance of risk for complications during the period will decrease Outcome: Progressing Problem: Nutritional: Goal: Dietary intake will improve Outcome: Progressing Goal: Mother's verbalization of comfort with process will improve Outcome: Progressing Problem: Role Relationship: Goal: Ability to interact appropriately with will improve Outcome: Progressing Problem: Sensory: Goal: General experience of comfort will improve Outcome: Progressing Problem: Activity: Goal: Ability to tolerate increased activity will improve Outcome: Progressing Problem: Bowel/Gastric: Goal: Gastrointestinal status for postoperative course will improve Outcome: Progressing Problem: Lack of Knowledge: Goal: Knowledge of Section Care will improve Outcome: Progressing Problem: Life Cycle: Goal: Chance of risk for complications during the period will decrease Outcome: Progressing Problem: Physical Regulation: Goal: Postoperative complications will be avoided or minimized Outcome: Progressing Problem: Respiratory: Goal: Ability to maintain adequate ventilation will improve Outcome: Progressing Problem: Role Relationship: Goal: Ability to demonstrate positive interaction with the child will improve Outcome: Progressing Problem: Sensory: Goal: Pain level will decrease Outcome: Progressing Goal: Satisfaction with pain management regimen will improve Outcome: Progressing Problem: Skin Integrity: Goal: Demonstration of wound healing without infection will improve Outcome: Progressing Goal: Ability to participate in self-care as condition permits will improve Outcome: Progressing Problem: Urinary Elimination: Goal: Ability to reestablish a normal urinary elimination pattern will improve Outcome: Progressing Goals: Clinical Goals for the Shift: VSS, pain management, up as tolerated Summary: VSS, pain managed with medication, * Plan of Care - Rina Ty RN - 05/16/2022 4:04 PM CDT Problem: Activity: Goal: Will verbalize the importance of balancing activity with adequate rest periods Outcome: Progressing Problem: Lack of Knowledge: Goal: Will have increased knowledge of Care Outcome: Progressing Problem: Coping: Goal: Ability to cope will improve Outcome: Progressing Goal: Ability to identify and utilize available resources and services will improve Outcome: Progressing Problem: Life Cycle: Goal: Risk for hemorrhage will decrease Outcome: Progressing Goal: Chance of risk for complications during the period will decrease Outcome: Progressing Problem: Nutritional: Goal: Dietary intake will improve Outcome: Progressing Goal: Mother's verbalization of comfort with process will improve Outcome: Progressing Problem: Role Relationship: Goal: Ability to interact appropriately with will improve Outcome: Progressing Problem: Sensory: Goal: General experience of comfort will improve Outcome: Progressing Problem: Activity: Goal: Ability to tolerate increased activity will improve Outcome: Progressing Problem: Bowel/Gastric: Goal: Gastrointestinal status for postoperative course will improve Outcome: Progressing Problem: Lack of Knowledge: Goal: Knowledge of Section Care will improve Outcome: Progressing Problem: Life Cycle: Goal: Chance of risk for complications during the period will decrease Outcome: Progressing Problem: Physical Regulation: Goal: Postoperative complications will be avoided or minimized Outcome: Progressing Problem: Respiratory: Goal: Ability to maintain adequate ventilation will improve Outcome: Progressing Problem: Role Relationship: Goal: Ability to demonstrate positive interaction with the child will improve Outcome: Progressing Problem: Sensory: Goal: Pain level will decrease Outcome: Progressing Goal: Satisfaction with pain management regimen will improve Outcome: Progressing Problem: Skin Integrity: Goal: Demonstration of wound healing without infection will improve Outcome: Progressing Goal: Ability to participate in self-care as condition permits will improve Outcome: Progressing Problem: Urinary Elimination: Goal: Ability to reestablish a normal urinary elimination pattern will improve Outcome: Progressing Goals: Clinical Goals for the Shift: Pain control; VSS; Alternate activity with rest Summary: Pt progressing toward plan of care goals. Pt pain controlled with current regimen. Pt up ad lonnie and voiding without difficulty. Bonding well with infant. * Plan of Care - Enriqueta Ravi RN - 05/15/2022 8:56 PM CDT Problem: Activity: Goal: Will verbalize the importance of balancing activity with adequate rest periods Outcome: Progressing Problem: Lack of Knowledge: Goal: Will have increased knowledge of Care Outcome: Progressing Problem: Coping: Goal: Ability to cope will improve Outcome: Progressing Goal: Ability to identify and utilize available resources and services will improve Outcome: Progressing Problem: Life Cycle: Goal: Risk for hemorrhage will decrease Outcome: Progressing Goal: Chance of risk for complications during the period will decrease Outcome: Progressing Problem: Nutritional: Goal: Dietary intake will improve Outcome: Progressing Goal: Mother's verbalization of comfort with process will improve Outcome: Progressing Problem: Role Relationship: Goal: Ability to interact appropriately with will improve Outcome: Progressing Problem: Sensory: Goal: General experience of comfort will improve Outcome: Progressing Problem: Activity: Goal: Ability to tolerate increased activity will improve Outcome: Progressing Problem: Bowel/Gastric: Goal: Gastrointestinal status for postoperative course will improve Outcome: Progressing Problem: Lack of Knowledge: Goal: Knowledge of Section Care will improve Outcome: Progressing Problem: Life Cycle: Goal: Chance of risk for complications during the period will decrease Outcome: Progressing Problem: Physical Regulation: Goal: Postoperative complications will be avoided or minimized Outcome: Progressing Problem: Respiratory: Goal: Ability to maintain adequate ventilation will improve Outcome: Progressing Problem: Role Relationship: Goal: Ability to demonstrate positive interaction with the child will improve Outcome: Progressing Problem: Sensory: Goal: Pain level will decrease Outcome: Progressing Goal: Satisfaction with pain management regimen will improve Outcome: Progressing Problem: Skin Integrity: Goal: Demonstration of wound healing without infection will improve Outcome: Progressing Goal: Ability to participate in self-care as condition permits will improve Outcome: Progressing Problem: Urinary Elimination: Goal: Ability to reestablish a normal urinary elimination pattern will improve Outcome: Progressing Goals: Clinical Goals for the Shift: VSS, pain less than 5, feed baby q3h, bonding Summary: Patient progressing toward care plan goals. * Note - Mylene Hamilton RN - 05/15/2022 6:23 PM CDT 05/15/22 1800 Consultation Reason for Consult Initial assessment Maternal Information Has mother breastfed before? No Infant to breast within first hour of ? No Exclusive Pump and Bottle Feed No Breasts/Nipples Breasts/Nipples (WDL) X Left Breast Other (Comment) (indicates breast cancer survivor and post surgery, surgeon indicated left breast would never produce milk.) Other OB Tools Tools Lanolin;Comfort gels Breast Pump Pump 1 Patient Follow-Up Consult Status PRN Declined assist with latch/position at this time. Indicates choosing formula, but may try once rested. Encouraged to call for assist as desired. Discussed consistency with deliberate attachment to breast using techniques to acheive deep latch. No questions/concerns expressed upon inquiry. Encouraged to call insurance for double electric if desired. Praise and support offered. Day 1 teaching resources given at this time. * Plan of Care - Candy Zuniga RN - 05/15/2022 1:56 PM CDT Problem: Lack of Knowledge: Goal: Verbalization of understanding the information provided will improve Outcome: Completed Goals: Clinical Goals for the Shift: vss wnl, minimal bleeeding and pain management. Summary: Patient verbalizes understanding of plan of care. Patient states that pain is controlled by current medications and therapies ordered. No signs of infection noted at this time. Patient progressing toward discharge. * Hospital Course - Buffy Vanegas NP - 05/15/2022 10:45 AM CDT Roxana Briseno is a 32 y.o. female at 39w2d weeks gestation, dated by IVF=1 who presentedto L&D for risk reducing induction of labor. Her induction was started with misoprostol and a cook catheter. FHT with variable decelerations within 4 hours of placing misoprostol. Her CC came outbut she continued to have variables thus unable to start pitocin. An amniotomy was eventually performed. She continued to have decelerations despite repositioning and terbutaline. After reviewing the patient's labor course, she has met criteria for: Non- reassuring status remote from delivery with recurrent variable decelerations despite interventions. It was recommended that we proceed with a delivery. Roxana Briseno had the opportunity to ask questions. A le tez 2 delivery was called. The risks, benefits, and alternatives were discussed with the patient at length. She was in agreement. The labor team, anesthesia team, and pediatrics team were made aware. She underwent a primary Low Transverse Section via Pfannensteil. for non-reassuring status at 39w2d. She had an epidural placed for anesthesia. She delivered a viable male infant with apgars 2 and 9 at one and five minutes of life respectively. Delivery was uncomplicated. See operative report for full details. The patient was transferred to . Her course was uncomplicated. Prior to discharge, her pain was well controlled, she was voiding, passing gas, ambulating, and meeting all milestones. # Mother/Baby: The patient has chosen to breastfeed her infant and has chosen condoms for contraception. * L&D Delivery Note - Geetha Early MD - 05/15/2022 7:52 AM CDT [facility] Section Delivery Note Patient's Name: Roxana Briseno : 1990 Attending Physician: Sumi Castillo MD Surgical Team: Surgeon(s) and Role: * Sumi Castillo MD - Primary * Geetha Early MD - Resident - Assisting * Kayla Fung MD - Co-Surgeon Clinic: [facility] Primary Diagnoses: Intrauterine at 39w2d, delivered IVF H/o ectopic s/p right salpingectomy in 2018 H/o PCOS Resolved low lying placenta previa MCI LGA with EFW >94th percentile and AC >99th percentile Delivery method: [351] Anesthesia: Epidural [254] Membranes: Artificial rupture, clear. Time ruptured prior to delivery: 2h 25m Antibiotics: Ancef and Azithromycin Infant Delivery Date/Time: 05/15/2022 at 6:49 AM Placenta Delivery Date & Time: 05/15/2022 6:50 AM Cord: 3 vessels [3] Delayed cord clamping: No, baby with poor tone on delivery. Handed to pediatrics for stimulation : living 7 lb 4.4 oz (3.3 kg) male APGARs: 2 / 9 Disposition: Nursery Operative Note Preoperative Diagnosis: Intrauterine at 39w2d Non-reassuring status remove from delivery with recurrent variable decelerations despite intervention Postoperative Diagnosis: Same, Nuchal cord Name of Operation: Primary Low Transverse Section via Pfannensteil Indication for Procedure: Roxana Briseno is a 32 y.o. female at 39w2d weeks gestation, dated by IVF=1 who presentedto L&D for risk reducing induction of labor. Her induction was started with misoprostol and a cook catheter. FHT with variable decelerations within 4 hours of placing misoprostol. Her CC came outbut she continued to have variables thus unable to start pitocin. An amniotomy was eventually performed. She continued to have decelerations despite repositioning and terbutaline. After reviewing the patient's labor course, she has met criteria for: Non- reassuring status remote from delivery with recurrent variable decelerations despite interventions. It was recommended that we proceed with a delivery. Roxana Briseno had the opportunity to ask questions. A le tez 2 delivery was called. The risks, benefits, and alternatives were discussed with the patient at length. She was in agreement. The labor team, anesthesia team, and pediatrics team were made aware. Operative Findings: Infant in vertex presentation. APGARS were 2 / 9 at 1 and 5 minutes respectively. Pediatrics was present at delivery. Placenta appeared with marginal 3 vessel cord. Normal uterus, bilateral tubes andovaries. Description of Procedure: After obtaining the appropriate operative consents, the patient was takento the operating room, where previously placed epidural was dosed and confirmed to provide adequateanesthesia. She was given 2 grams of Ancef/500mg Azithromycin. She was then prepared and draped in the normal sterile fashion in the supine position with a leftward tilt. A Pfannenstiel skin incisionwas then made with the scalpel and carried through to the underlying layer of fascia. The fascia was incised in the midline and the incision extended laterally with Antonio scissors. The superior aspectof the fascial incision was then grasped with the Dani clamps and elevated, the underlying rectusmuscles were dissected off bluntly and sharply. Attention was then turned to the inferior aspect ofthe fascial incision, which, in a similar fashion, was grasped and tented up with the Dani clamps, the underlying rectus muscles were dissected off bluntly and sharply. The rectus muscles were thenseparated in the midline, and the peritoneum was identified and entered bluntly. The peritoneum wasopened further with bovie. The peritoneal incision was then extended superiorly and inferiorly withgood visualization of the bladder. The bladder blade was then inserted and the vesicouterine peritoneum identified. A bladder flap was created in the usual fashion. A low transverse hysterotomy was made with the scalpel. The uterine incision was then extended bluntly. The bladder blade was removed and the 's head was brought to the level of the hysterotomyand delivered atraumatically. The cord was clamped and cut and the infant was handed off to the waiting pediatricians. Cord gases were sent. The placenta was then delivered using external massage. The uterus was exteriorized and cleared of all clots and debris. The uterine incision was repaired with 0-vicryl in a running, locked fashion. An extension to the right uterine artery was noted and closed with 0-vicryl in a running fashion. A figure of 8 was thrown with monocryl to try to obtain hemostasis. A slow continuous ooze was noted from lower extension. An O'Richmond stitch was throw with improvement in hemostasis. Good hemostasis wasnoted after hysterotomy closure. The uterus was returned to the abdomen and the gutters were cleared of all clots and debris. The hysterotomy was examined in situ. Flow seal was applied over hysterotomy and hemostasis was found to be satisfactory. The ventral aspect of the fascia was inspected and no fascial defects were found. The rectus muscles were inspected and found to be intact. The fascia was reapproximated with 0- vicryl in a running fashion. The subcutaneous tissue was then irrigated and the bovie was used to obtain excellent hemostasis. The subcutaneous tissue was closed with 0-vicryl. The skin was closed with 4-0 monocryl in a subcuticular fashion. The patient tolerated the procedure well and was taken to the recovery room in stable condition. Complications: None Estimated Blood Loss: 800 mL Intraoperative Fluids: 1500mL crystalloid Urine Output: 50mL clear yellow urine at the end of the procedure Sponge/Instrument/Needle Counts: The sponge, lap and needle counts were correct x3. Specimens Sent To Pathology: * No specimens in log * The attending, Sumi Castillo MD, was present for the for the procedure through hysterotomy closure. The attending, Kayla Fung MD was present for rest of patton portions of the procedure. Geetha Early MD CURTAIN STITCHER PGY-1 Cosigned by Sumi Castillo MD at 05/15/2022 1:56 PM CDT Associated attestation - Sumi Castillo MD - 05/15/2022 1:56 PM CDT I was present for the entire procedure. * Significant Event - Osmin Duffy MD - 05/15/2022 6:08 AM CDT Section Decision Huddle Note After reviewing the patient's labor course, she has met criteria for: Other indication(s) (Non-reassuring status remote from delivery with recurrent variable decelerations despite interventions). I recommended that we proceed with a delivery. I have allowed Roxana Briseno the opportunity to ask questions. I have recommended a Level 2 delivery. The risks, benefits, and alternatives were discussed with the patient at length. She is in agreement. The labor team, anesthesia team, and pediatrics team were made aware. Will proceed to the OR. Osmin Duffy MD * Plan of Care - Irma Parnell RN - 05/15/2022 1:02 AM CDT Goals: Clinical Goals for the Shift: VSS, healthy mom, healthy baby, effective pain management Summary: Problem: Lack of Knowledge: Goal: Verbalization of understanding the information provided will improve Outcome: Progressing Problem: Coping: Goal: Ability to identify appropriate support needs for the childbearing process will improve Outcome: Progressing Goal: Ability to verbilize concerns and feelings about labor and delivery improve Outcome: Progressing Problem: Life Cycle: Goal: Ability to maintain clinical measurements within normal limits will improve Outcome: Progressing Goal: Ability to make normal progression through stages of labor will improve Outcome: Progressing Goal: Ability to effectively push during vaginal delivery will improve Outcome: Progressing Problem: Role Relationship: Goal: Ability to demonstrate positive interaction with the child will improve Outcome: Progressing Problem: Safety: Goal: Chance of risk for complications during labor and delivery will decrease Outcome: Progressing Problem: Sensory: Goal: Relief or control of pain from uterine contractions will improve Outcome: Progressing documented in this encounter Plan of Treatment Not on file documented as of this encounter Procedures Procedure Name Priority Date/Time Associated Diagnosis Comments CBC WITHOUT DIFFERENTIAL Routine 05/16/2022 4:51 AM CDT SECTION 05/15/2022 6:23 AM CDT Intolerance of Labor Case Notes Level 2 c/s for intolerance of labor EGFR STAT 05/14/2022 9:24 PM CDT RPR STAT 05/14/2022 9:24 PM CDT CBC WITHOUT DIFFERENTIAL STAT 05/14/2022 9:24 PM CDT HC ANTIBODY SCREEN RBC STAT 05/14/2022 9:24 PM CDT COMPREHENSIVE METABOLIC PANEL STAT 05/14/2022 9:24 PM CDT documented in this encounter Results * (ABNORMAL) CBC without differential (05/16/2022 4:51 AM CDT) [facility] Signature WBC 17.6(H) 3.8 - 9.9 K/cumm [facility] Hgb 7.7(L) 11.9 - 15.5 g/dL [facility] Hct 23.1(L) 35.6 - 45.5 % [facility] Plt 304 150 - 400 K/cumm [facility] MPV 10.6 9.1 - 12.[address] [facility] RBC 2.70(L) 3.90 - 5.20 M/cumm [facility] MCV 85.6 81.3 - 96.[address] [facility] MCH 28.5 27.1 - 33.[address] [facility] MCHC 33.3 32.3 - 35.7 g/dL [facility] RDW CV 14.9 11.1 - 14.9 % [facility] RDW SD 45.6 35.7 - 48.[address] [facility] NRBC abs 0.00 0.00 - 0.01 K/cumm [facility] Blood 05/16/2022 4:51 AM CDT 05/16/2022 5:10 AM CDT Sumi Castillo MD LAB BLOOD ORDERABLES Final Re sult [facility] [place] [address] * eGFR (05/14/2022 9:24 PM CDT) eGFR >90 90 - 130 mL/min/1. [address] [facility] Comment: Interpretive Data Reference Interval Normal ?>/= 90 mL/min/1.73m2 Mildly decreased* ? 60 - 89 mL/min/1.73m2 Mildly to moderately decreased ?45 - 59 mL/min/1.73m2 Moderately to severely decreased ??30 - 44 mL/min/1.73m2 Severely decreased ?15 - 29 mL/min/1.73m2 Kidney Failure ?< 15 ??mL/min/1.73m2 *Relative to young adult level Estimated glomerular filtration rate is determined by the 2020 CKD-EPI equation recommended by the National [employer] (A Unifying Approach to GFR Estimation: Recommendations of the NKF-ASK Task Force on Reassessing the Inclusion of Race in Diagnosing Kidney Disease, JASN 2020). The CKD-EPI equation should not be used for patients with unstable renal function and has not been validated in children and those over 70. Current interpretive data was last reviewed 2020. Blood 05/14/2022 9:24 PM CDT 05/14/2022 9:39 PM CDT Marylin Rene MD LAB BLOOD ORDERABLES Fi nal Result [facility] [place] [address] * RPR Blood (05/14/2022 9:24 PM CDT) Pathologist [facility] RPR Nonreactive Nonreactive [facility] Blood 05/14/2022 9:24 PM CDT 05/14/2022 9:39 PM CDT Marylin Rene MD LAB MICROBIOLOGY - GENE RAL ORDERABLES Final Result Performing Organization Address [facility] de Phone Number [facility] Department [place] [address] * (ABNORMAL) Comprehensive metabolic panel (05/14/2022 9:24 PM CDT) [facility] Sodium 138 135 - 145 mmol/L [facility] Potassium, pl 3.3 3.3 - 4.9 mmol/L [facility] Chloride 106 97 - 110 mmol/L [facility] CO2 22 22 - 32 mmol/L [facility] Anion gap 10 2 - 15 mmol/L [facility] BUN 10 8 - 25 mg/dL [facility] Creatinine 0.72 0.60 - 1.10 mg/dL [facility] Glucose 101 70 - 199 mg/dL [facility] Comment: Interpretive Data Fasting glucose >/= 126 mg/dl is diagnostic for diabetes. ?? Fasting is defined as no caloric intake for at least 8 hours. Fasting glucose between 100 mg/dl to 125 mg/dl is diagnostic of prediabetes. In a patient with classic symptoms of hyperglycemia or hyperglycemic crisis, a random glucose >/= 200 mg/dl is diagnostic for diabetes. In the absence of unequivocal hyperglycemia, results should be confirmed by repeat testing. The classification and Diagnosis of Diabetes Diabetes Care 2021; 46: S19-S40. Current interpretive data was last revised 2022. Calcium 8.6 8.5 - 10.3 mg/dL [facility] Bilirubin, total 0.2 0.1 - 1.2 mg/dL [facility] Protein, pl 6.2(L) 6.5 - 8.5 g/dL [facility] Albumin 3.3(L) 3.5 - 5.0 g/dL [facility] Alk phos 175(H) 40 - 130 Units/L [facility] ALT 14 7 - 45 Units/L [facility] AST 16 10 - 45 Units/L [facility] Blood 05/14/2022 9:24 PM CDT 05/14/2022 9:39 PM CDT us Marylin Rene MD LAB BLOOD ORDERABLES Fi nal Result [facility] [place] [address] * (ABNORMAL) CBC without differential (05/14/2022 9:24 PM CDT) WBC 11.2(H) 3.8 - 9.9 K/cumm [facility] Hgb 10.3(L) 11.9 - 15.5 g/dL [facility] Hct 31.2(L) 35.6 - 45.5 % [facility] Plt 328 150 - 400 K/cumm [facility] MPV 10.4 9.1 - 12.[address] [facility] RBC 3.73(L) 3.90 - 5.20 M/cumm [facility] MCV 83.6 81.3 - 96.[address] [facility] MCH 27.6 27.1 - 33.[address] [facility] MCHC 33.0 32.3 - 35.7 g/dL [facility] RDW CV 14.5 11.1 - 14.9 % [facility] RDW SD 43.7 35.7 - 48.[address] [facility] NRBC abs 0.00 0.00 - 0.01 K/cumm [facility] Blood 05/14/2022 9:24 PM CDT 05/14/2022 9:40 PM CDT Marylin Rene MD LAB BLOOD ORDERABLES Fi nal Result Performing Organization Address [facility]/ZIP Co de Phone Number [facility] [place] [address] * Type and screen (05/14/2022 9:24 PM CDT) ABO Rh A Positive [facility] Joanne, indirect Negative [facility] Blood 05/14/2022 9:24 PM CDT 05/14/2022 9:54 PM CDT Narrative [facility] - 05/14/2022 10:46 PM CDT Has the patient had Daratumumab or Isatuximab in the past 6 months?->Unknown Marylin Rene MD LAB BLOOD BANK TEST ORD ERABLES Final Result Performing Organization Address [facility] Co de Phone Number [facility] [place] [address] documented in this encounter Visit Diagnoses Diagnosis Encounter for induction of labor- Primary delivery delivered delivery, without mention of indication, delivered, with or without mention of antepartum condition documented in this encounter Admitting Diagnoses Diagnosis Encounter for induction of labor documented in this encounter Administered Medications Inactive Administered Medications - up to 3 most recent administrations Medication Order MAR Action Action Date Dose Rate Site acetaminophen (TYLENOL) tablet 1,000 mg 1,000 mg, oral, Every 6 hours, First dose on Sun05/16/22 at 0900, Start in 24 hours after Anesthesia no longer covering., Indications: PainIndications:Pain Given 05/17/2022 4:49 AM CDT 1,000 mg Given 05/16/2022 9:06 PM CDT 1,000 mg Given 05/16/2022 3:09 PM CDT 1,000 mg acetaminophen (TYLENOL) tablet 1,000 mg 1,000 mg, oral, Every 6 hours scheduled, First dose on Sun05/15/22 at 1000, For 24 hours, When able to tolerate PO. Max 4 doses. Anesthesia orders for the first 24 hours ., Indications: PainIndications:Pain Given 05/16/2022 3:15 AM CDT 1,000 mg Given 05/15/2022 9:30 PM CDT 1,000 mg Given 05/15/2022 3:55 PM CDT 1,000 mg dextrose 5% and Lactated Ringer's infusion 125 mL/hr, intravenous, Continuous, Starting on Sun05/14/22 at 2215, Carrier fluids Restarted 05/14/2022 11:52 PM CDT 125 mL/hr 125 mL/hr New Bag 05/14/2022 10:10 PM CDT 125 mL/hr 125 mL/hr diphenhydrAMINE (BENADRYL) injection 25 mg 25 mg, intravenous, Administer over 2 Minutes, Every 6 hours PRN, itching, Starting on Sun05/15/22 at 0829, For 24 hours, May switch to nalbuphine if itching not resolved in 30 minutes. Anesthesia orders for the first 24 hours ., Indications: ItchingIndications:Itching Given 05/16/2022 12:07 AM CDT 25 mg Given 05/15/2022 3:22 PM CDT 25 mg diphenhydrAMINE (BENADRYL) injection 25 mg 25 mg, intravenous, Administer over 2 Minutes, Every 6 hours PRN, itching, Starting on Sun05/16/22 at 1049, For 24 hours, May switch to nalbuphine if itching not resolved in 30 minutes. Anesthesia orders for the first 24 hours ., Indications: ItchingIndications:Itching Given 05/16/2022 10:59 AM CDT 25 mg docusate sodium (COLACE) capsule 100 mg 100 mg, oral, 2 times daily, First dose on Sun05/15/22 at 0915, Hold if diarrhea., Indications: constipation, Stool SoftenerIndications:constipation,Stool Softener Given 05/17/2022 9:00 AM CDT 100 mg Given 05/16/2022 9:06 PM CDT 100 mg Given 05/16/2022 8:26 AM CDT 100 mg enoxaparin (LOVENOX) syringe 40 mg 40 mg, subcutaneous, Daily (for enoxaparin), First dose on Sun05/16/22 at 2100, Indications: Deep Vein Thrombosis PreventionIndications:De ep Vein Thrombosis Prevention Given 05/16/2022 9:06 PM CDT 40 mg Left Upper Arm fentaNYL 2500 mcg/50 mL cassette/syringe (premix) Continuous: none, BUDGET CLERK dose: Other, BUDGET CLERK dose (mcg): 20, BUDGET CLERK lockout: 5 Minutes, 1 hour limit: Other, 1 hour limit (mcg): 240, Clinician Bolus per MD Direction: none, intravenous, Continuous, Starting on Sun05/14/22 at 2345, Until Sun05/15/22 at 0831, 50 mL, Indications: Labor Pain, Pain, Loading dose: 1ml Bolus dose: 0.4 ml (20cc) Lockout: 5 min Max/h: 4.8 ml (240 mcg), STATIndications:Labor Pain,Pain New Syringe/Cartridge 05/14/2022 11:49 PM CDT 2,500 mcg ferrous sulfate tablet 325 mg 325 mg (65 mg of elemental iron), oral, Daily with breakfast, First dose on Sun05/16/22 at 0800, Indications: Iron Deficiency AnemiaIndications:Iron Deficiency Anemia Given 05/17/2022 9:00 AM CDT 325 mg Given 05/16/2022 8:26 AM CDT 325 mg ibuprofen (ADVIL,MOTRIN) tablet 600 mg 600 mg, oral, Every 6 hours, First dose on Sun05/16/22 at 0600, Start in 24 hours after Anesthesia no longer covering., Indications: CrampsIndications:Cramps Given 05/17/2022 4:49 AM CDT 600 mg Given 05/16/2022 9:06 PM CDT 600 mg Given 05/16/2022 1:20 PM CDT 600 mg ketorolac (TORADOL) 30 mg/mL (1 mL) injection 30 mg 30 mg, intravenous, Every 6 hours scheduled, First dose on Sun05/15/22 at 1330, For 3 doses, Max 4 doses. Anesthesia orders for the first 24 hours ., Indications: PainIndications:Pain Given 05/16/2022 12:07 AM CDT 30 mg Given 05/15/2022 6:43 PM CDT 30 mg Given 05/15/2022 1:23 PM CDT 30 mg Lactated Ringer's (LR) bolus 1,000 mL 1,000 mL, intravenous, Once as needed, for epidural placement per anesthesia request, Starting on Sun05/14/22 at 2033, For 1 dose, L&D Pre-Delivery, Administer only on provider request. Start 15 minutes prior to epidural placement New Bag 05/15/2022 3:50 AM CDT 1,000 mL Lactated Ringer's (LR) bolus 1,000 mL 1,000 mL, intravenous, at 1,000 mL/hr, Administer over 1 Hours, Once, On Sun05/15/22 at 1045, For 1 dose New Bag 05/15/2022 10:14 AM CDT 1,000 mL 1000 mL/hr miSOPROStol (CYTOTEC) split tablet 25 mcg 25 mcg, vaginal, Once, On Sun05/14/22 at 2130, For 1 dose Given by Other 05/14/2022 9:43 PM CDT 25 mcg ondansetron (ZOFRAN) injection 4 mg 4 mg, intravenous, Administer over 2 Minutes, Every 6 hours PRN, nausea, vomiting, if not tolerating PO, Starting on Sun05/16/22 at 0417, Start in 24 hours after Anesthesia no longer covering., Indications: Nausea and VomitingIndications:Nausea and Vomiting ondansetron ODT (ZOFRAN-ODT) disintegrating tablet 4 mg 4 mg, oral, Every 6 hours PRN, nausea, vomiting, Starting on Sun05/16/22 at 0417, Start in 24 hours after Anesthesia no longer covering., Indications: Nausea and VomitingIndications:Nausea and Vomiting oxyCODONE (ROXICODONE) tablet 5 mg 5 mg, oral, Every 4 hours PRN, 1st line for pain, Starting on Sun05/16/22 at 0817, May administer 1 hour after 1st line agent for uncontrolled or increasing pain. Start in 24 hours after Anesthesia no longer covering., Indications: PainIndications:Pain Given 05/16/2022 3:09 PM CDT 5 mg Given 05/16/2022 10:29 AM CDT 5 mg oxyCODONE (ROXICODONE) tablet 5 mg 5 mg, oral, Every 4 hours PRN, 1st line for pain, Starting on Sun05/15/22 at 0829, For 24 hours, When able to tolerate PO. Anesthesia orders for the first 24 hours ., Indications: PainIndications:Pain Given 05/16/2022 6:11 AM CDT 5 mg Given 05/16/2022 12:07 AM CDT 5 mg Given 05/15/2022 6:44 PM CDT 5 mg penicillin G potassium 3 million units/50 mL in dextrose (premix) 3 Million Units 3 Million Units, intravenous, Administer over 30 Minutes, Every 4 hours, First dose on Sun05/15/22 at 0210, L&D Pre-Delivery, Until delivery, Indications: Prevention of Group B Streptococcal InfectionIndications:Prevention of Group B Streptococcal Infection New Bag 05/15/2022 2:15 AM CDT 3 Million Units penicillin G potassium 5 million units/50 mL in sterile water (premix) 5 Million Units 5 Million Units, intravenous, Administer over 30 Minutes, Once, On Sun05/14/22 at 2115, For 1 dose, L&D Pre-Delivery, Indications: Prevention of Group B Streptococcal InfectionIndications:Prevention of Group B Streptococcal Infection New Bag 05/14/2022 10:10 PM CDT 5 Million Units PNV with [id number] tablet 1 tablet 1 tablet, oral, Daily, First dose on Sun05/15/22 at 0915, Begin when normal bowel activity resumes., Indications: Vitamin Deficiency PreventionIndications:Vitamin Deficiency Prevention Given 05/17/2022 9:00 AM CDT 1 tablet Given 05/16/2022 8:25 AM CDT 1 tablet senna (SENOKOT) tablet 1 tablet 1 tablet, oral, 2 times daily, First dose on Sun05/15/22 at 0915, Hold if diarrhea., Indications: constipationIndications:constipation Given 05/17/2022 9:00 AM CDT 1 table t Given 05/16/2022 9:06 PM CDT 1 tablet Given 05/16/2022 8:26 AM CDT 1 tablet sodium chloride (OCEAN) 0.65 % nasal spray 1 spray 1 spray, each nostril, Every 2 hours PRN, congestion, Starting on Sun05/16/22 at 1554 Given 05/16/2022 3:59 PM CDT 1 spray sodium chloride 0.9% bolus 600 mL 600 mL, intrauterine, at 600 mL/hr, Administer over 1 Hours, Once, On Sun05/15/22 at 0530, For 1 dose New Bag 05/15/2022 4:51 AM CDT 600 mL 600 mL/hr sodium chloride 0.9% flush 0.5-20 mL 0.5-20 mL, intra-catheter, Every 8 hours scheduled, First dose on Sun05/15/22 at 0915, Flush volume based on line type and size. Given 05/16/2022 10:00 PM CDT 10 mL Given 05/16/2022 4:00 PM CDT 10 mL Given 05/16/2022 6:13 AM CDT 10 mL sodium chloride 0.9% flush 0.5-20 mL 0.5-20 mL, intra-catheter, As needed, line care, Starting on Sun05/15/22 at 0831, Flush volume based on line type and size. Flush before and after each use. Given 05/15/2022 3:23 PM CDT 10 mL sodium chloride 0.9% infusion 180 mL/hr, intrauterine, Continuous, Starting on Sun05/15/22 at 0530 Rate/Dose Change 05/15/2022 5:59 AM CDT 180 mL/hr 180 mL/hr terbutaline (BRETHINE) injection 0.125 mg 0.125 mg, intravenous, Once as needed, distress and uterine tachysystole, Starting on Sun05/14/22 at 2032, For 1 dose, L&D Pre-Delivery, Notify physician immediately if administration is required., Indications: distress and uterine tachysystoleIndications: distress and uterine tachysystole Given 05/15/2022 5:03 AM CDT 0.125 mg documented in this encounter Active and Recently Administered Medications Times are shown in CDT. Scheduled Medication Order 05/15/2022 05/16/2022 05/17/2022 acetaminophen (TYLENOL) tablet 1,000 mg 1,000 mg, oral, Every 6 hours, First dose on Sun05/16/22 at 0900, Start in 24 hours after Anesthesia no longer covering., Indications: Pain 0827 (Given - Provider: Rina Ty RN)1509 (Given - Provider: Rina Ty RN)2106 (Given - Provider: Kayla Merino RN) 0449 (Given - Provider: Kayla Merino RN)0900 (Due - Provider: Benjamin Espino [facility])1500 (Due - Provider: Benjamin Espino RPh) acetaminophen (TYLENOL) tablet 1,000 mg (COMPLETED) 1,000 mg, oral, Every 6 hours scheduled, First dose on Sun05/15/22 at 1000, For 24 hours, When able to tolerate PO. Max 4 doses. Anesthesia orders for the first 24 hours ., Indications: Pain 1013 (Given - Provider: Jemma Mark RN)1555 (Given - Provider: Candy Zuniga RN)2130 (Given - Provider: Enriqueta Ravi RN) 0315 (Given - Provider: Enriqueta Ravi RN) docusate sodium (COLACE) capsule 100 mg 100 mg, oral, 2 times daily, First dose on Sun05/15/22 at 0915, Hold if diarrhea., Indications: constipation, Stool Softener 1013 (Given - Provider: Jemma Mark RN)2131 (Given - Provider: Enriqueta Ravi RN) 0826 (Given - Provider: Rina Ty RN)210 (Given - Provider: Kayla Merino RN) 0900 (Given - Provider: Delia Beyer RN) enoxaparin (LOVENOX) syringe 40 mg 40 mg, subcutaneous, Daily (for enoxaparin), First dose on Sun05/16/22 at 2100, Indications: Deep Vein Thrombosis Prevention 2105 (Given - Provider: Kayla Merino RN) ferrous sulfate tablet 325 mg 325 mg (65 mg of elemental iron), oral, Daily with breakfast, First dose on Sun05/16/22 at 0800, Indications: Iron Deficiency Anemia 08 (Given - Provider: Rina Ty RN) 0900 (Given - Provider: Delia Beyer RN) ibuprofen (ADVIL,MOTRIN) tablet 600 mg 600 mg, oral, Every 6 hours, First dose on Sun05/16/22 at 0600, Start in 24 hours after Anesthesia no longer covering., Indications: Cramps 0611 (Given - Provider: Enriqueta Ravi RN)1320 (Given - Provider: Rina Ty RN)2106 (Given - Provider: Kayla Merino, COCO) 0000 (Not Given - Provider: Kayla Merino RN - Reason: Patient/family refused)0449 (Given - Provider: Kayla Merino RN)1200 (Due - Provider: Benjamin Espino [facility]) ketorolac (TORADOL) 30 mg/mL (1 mL) injection 30 mg (COMPLETED) 30 mg, intravenous, Every 6 hours scheduled, First dose on Sun05/15/22 at 1330, For 3 doses, Max 4 doses. Anesthesia orders for the first 24 hours ., Indications: Pain 1323 (Given - Provider: Candy Zuniga, COCO)1843 (Given - Provider: Candy Zuniga RN) 0007 (Given - Provider: Enriqueta Ravi RN) Lactated Ringer's (LR) bolus 1,000 mL (COMPLETED) 1,000 mL, intravenous, at 1,000 mL/hr, Administer over 1 Hours, Once, On Sun05/15/22 at 1045, For 1 dose 1014 (New Bag - Provider: Jemma Mark, COCO) penicillin G potassium 3 million units/50 mL in dextrose (premix) 3 Million Units (CANCELED)(Linked Group 1) 3 Million Units, intravenous, Administer over 30 Minutes, Every 4 hours, First dose on Sun05/15/22 at 0210, L&D Pre-Delivery, Until delivery, Indications: Prevention of Group B Streptococcal Infection 0215 (New Bag - Provider: Irma Parnell RN)0610 (Due - Provider: Ravi Caceres [facility]) PNV with avecgjq-ozbv-WD tablet 1 tablet 1 tablet, oral, Daily, First dose on Sun05/15/22 at 0915, Begin when normal bowel activity resumes., Indications: Vitamin Deficiency Prevention 0915 (Due) 0825 (Given - Provider: Rina Ty RN) 0900 (Given - Provider: Delia Beyer RN) senna (SENOKOT) tablet 1 tablet 1 tablet, oral, 2 times daily, First dose on Sun05/15/22 at 0915, Hold if diarrhea., Indications: constipation 1013 (Given - Provider: Jemma Mark RN)2130 (Given - Provider: Enriqueta Ravi, COCO) 0826 (Given - Provider: Rina Ty, COCO)2106 (Given - Provider: Kayla Merino, COCO) 0900 (Given - Provider: Delia Beyer RN) sodium chloride 0.9% bolus 600 mL (COMPLETED) 600 mL, intrauterine, at 600 mL/hr, Administer over 1 Hours, Once, On Sun05/15/22 at 0530, For 1 dose 0451 (New Bag - Provider: Irma Parnell, COCO)0558 (Stopped - Provider: Irma Parnell, COCO) sodium chloride 0.9% flush 0.5-20 mL 0.5-20 mL, intra-catheter, Every 8 hours scheduled, First dose on Sun05/15/22 at 0915, Flush volume based on line type and size. 1326 (Given - Provider: Candy Zuniga RN)2200 (Not Given - Provider: Enriqueta Ravi RN - Reason: Other - Comment: will give with toradol at 0000) 0008 (Given - Provider: Enriqueta Ravi, COCO)0613 (Given - Provider: Enriqueta Ravi, COCO)1600 (Given - Provider: Rina Ty, COCO)2200 (Given - Provider: Kayla Merino, COCO) 0656 (Not Given - Provider: Kayla Merino RN - Reason: Patient/family refused)1400 (Due) Continuous Medication Order 05/15/2022 05/16/2022 05/17/2022 fentaNYL-bupivacaine preservative free in 0.9% sodium chloride 2 mcg/mL- 0.1 % cassette (premix) (CANCELED) Continuous Rate: 10 mL/hr, Patient Bolus Dose: 8 mL, Lockout Interval: 15 Minutes, epidural, Continuous, Starting on Sun05/15/22 at 0415, Until Sun05/15/22 at 0831, 100 mL, Indications: Pain, Stop epidural infusion after placental delivery and any indicated repair is complete., Routine 0357 (Given - Provider: Dilan Reynolds MD) Lactated Ringer's (LR) infusion(Linked Group 2) 125 mL/hr, intravenous, Continuous, Starting on Sun05/15/22 at 1315, Until regular diet. 1315 (Due) sodium chloride 0.9% infusion (CANCELED) 180 mL/hr, intrauterine, Continuous, Starting on Sun05/15/22 at 0530 0559 (Rate/Dose Change - Provider: Irma Parnell, RN)0610 (Stopped - Provider: Jemma Mark, COCO) PRN Medication Order 05/15/2022 05/16/2022 05/17/2022 diphenhydrAMINE (BENADRYL) injection 25 mg () 25 mg, intravenous, Administer over 2 Minutes, Every 6 hours PRN, itching, Starting on Sun05/15/22 at 0829, For 24 hours, May switch to nalbuphine if itching not resolved in 30 minutes. Anesthesia orders for the first 24 hours ., Indications: Itching 1522 (Given - Provider: Candy Zuniga, RN) 0007 (Given - Provider: Enriqueta Ravi, COCO) diphenhydrAMINE (BENADRYL) injection 25 mg 25 mg, intravenous, Administer over 2 Minutes, Every 6 hours PRN, itching, Starting on Sun05/16/22 at 1049, For 24 hours, May switch to nalbuphine if itching not resolved in 30 minutes. Anesthesia orders for the first 24 hours ., Indications: Itching 1059 (Given - Provider: Rina Ty, COCO) hydrocortisone (ANUSOL-HC) 2.5 % rectal cream rectal, 3 times daily PRN, itching, irritation, Starting on Sun05/15/22 at 0831, Indications: Hemorrhoids Lactated Ringer's (LR) bolus 1,000 mL (COMPLETED) 1,000 mL, intravenous, Once as needed, for epidural placement per anesthesia request, Starting on Sun05/14/22 at 2033, For 1 dose, L&D Pre-Delivery, Administer only on provider request. Start 15 minutes prior to epidural placement 0350 (New Bag - Provider: Irma Parnell, RN) phgxhiu-zutwi-wswnoux (MMR) 1,000-12,500 TCID50/0.5 mL live vaccine 0.5 mL 0.5 mL, subcutaneous, During hospitalization, immunization, Starting on Sun05/15/22 at 0831, For 1 dose, If not rubella immune. Warning: This is a live or live attenuated vaccine. Refrigerate, Indications: Jonmrrk-Eemco-Mcnmlbp Vaccination ondansetron (ZOFRAN) injection 4 mg(Linked Group 3) 4 mg, intravenous, Administer over 2 Minutes, Every 6 hours PRN, nausea, vomiting, if not tolerating PO, Starting on Sun05/16/22 at 0417, Start in 24 hours after Anesthesia no longer covering., Indications: Nausea and Vomiting ondansetron ODT (ZOFRAN-ODT) disintegrating tablet 4 mg(Linked Group 3) 4 mg, oral, Every 6 hours PRN, nausea, vomiting, Starting on Sun05/16/22 at 0417, Start in 24 hours after Anesthesia no longer covering., Indications: Nausea and Vomiting oxyCODONE (ROXICODONE) tablet 5 mg 5 mg, oral, Every 4 hours PRN, 1st line for pain, Starting on Sun05/16/22 at 0817, May administer 1 hour after 1st line agent for uncontrolled or increasing pain. Start in 24 hours after Anesthesia no longer covering., Indications: Pain 1029 (Given - Provider: Rina Ty RN)1509 (Given - Provider: Rina Ty RN) oxyCODONE (ROXICODONE) tablet 5 mg () 5 mg, oral, Every 4 hours PRN, 1st line for pain, Starting on Sun05/15/22 at 0829, For 24 hours, When able to tolerate PO. Anesthesia orders for the first 24 hours ., Indications: Pain 1323 (Given - Provider: Candy Zuniga RN)1844 (Given - Provider: Cnady Zuniga RN) 0007 (Given - Provider: Enriqueta Ravi, RN)0611 (Given - Provider: Enriqueta Ravi, RN) polyethylene glycol (MIRALAX) packet 17 g 17 g, oral, Daily PRN, constipation, Starting on Sun05/15/22 at 0831, Hold if diarrhea., Indications: constipation simethicone (MYLICON) chewable tablet 80 mg 80 mg, oral, 4 times daily PRN (after meals, bedtime), flatulence, Starting on Sun05/15/22 at 0831, Indications: Flatulence sodium chloride (OCEAN) 0.65 % nasal spray 1 spray 1 spray, each nostril, Every 2 hours PRN, congestion, Starting on Sun05/16/22 at 1554 1559 (Given - Provider: Rina Ty, COCO) sodium chloride 0.9% flush 0.5-20 mL 0.5-20 mL, intra-catheter, As needed, line care, Starting on Sun05/15/22 at 0831, Flush volume based on line type and size. Flush before and after each use. 1523 (Given - Provider: Candy Zuniga RN) sodium chloride 0.9% irrigation (CANCELED) As needed, Starting on Sun05/15/22 at 0637, Intra-Op 0637 (Given - Provider: Geetha Early MD) sterile water irrigation (CANCELED) As needed, Starting on Sun05/15/22 at 0637, Intra-Op 0637 (Given - Provider: Geetha Early MD) terbutaline (BRETHINE) injection 0.125 mg (COMPLETED)(Linked Group 4) 0.125 mg, intravenous, Once as needed, distress and uterine tachysystole, Starting on Sun05/14/22 at 2033, For 1 dose, L&D Pre-Delivery, Notify physician immediately if administration is required., Indications: distress and uterine tachysystole 0503 (Given - Provider: Irma Parnell RN - Comment: verbal order per MD Clive) varicella zoster (VARIVAX) vaccine - live 0.5 mL 0.5 mL, subcutaneous, During hospitalization, immunization, Starting on Sun05/15/22 at 0831, For 1 dose, if not immune Refrigerate. Do not administer to individuals who are immunodeficient or immunosuppressed or to women., Indications: varicella prevention Linked Groups Order Group 1: penicillin G potassium 5 million units/50 mL in sterile water (premix) 5 Million Units (COMPLETED) 5 Million Units, intravenous, Administer over 30 Minutes, Once, On Sun05/14/22 at 2115, For 1 dose, L&D Pre-Delivery, Indications: Prevention of Group B Streptococcal Infection Followed by penicillin G potassium 3 million units/50 mL in dextrose (premix) 3 Million Units (CANCELED)Jump to med 3 Million Units, intravenous, Administer over 30 Minutes, Every 4 hours, First dose on Sun05/15/22 at 0210, L&D Pre-Delivery, Until delivery, Indications: Prevention of Group B Streptococcal Infection Group 2: oxytocin 30 unit/500 mL (0.06 unit/mL) in sodium chloride 0.9% (premix) solution () 95-334 milliunits/min (95-334 mL/hr), 0.06 units/mL, intravenous, Titrated, Starting on Sun05/15/22 at 0915, Until Sun05/15/22 at 1314, Indications: Hemorrhage Prevention, 334 crys-units/minutes for 30 minutes then decrease infusion to 95 crys-units/min for 3.5 hours. , Routine Followed by Lactated Ringer's (LR) infusionJump to med 125 mL/hr, intravenous, Continuous, Starting on Sun05/15/22 at 1315, Until regular diet. Group 3: ondansetron ODT (ZOFRAN-ODT) disintegrating tablet 4 mgJump to med 4 mg, oral, Every 6 hours PRN, nausea, vomiting, Starting on Sun05/16/22 at 0417, Start in 24 hours after Anesthesia no longer covering., Indications: Nausea and Vomiting Or ondansetron (ZOFRAN) injection 4 mgJump to med 4 mg, intravenous, Administer over 2 Minutes, Every 6 hours PRN, nausea, vomiting, if not tolerating PO, Starting on Sun05/16/22 at 0417, Start in 24 hours after Anesthesia no longer covering., Indications: Nausea and Vomiting Group 4: terbutaline (BRETHINE) injection 0.125 mg (COMPLETED)Jump to med 0.125 mg, intravenous, Once as needed, distress and uterine tachysystole, Starting on Sun05/14/22 at 2032, For 1 dose, L&D Pre-Delivery, Notify physician immediately if administration is required., Indications: distress and uterine tachysystole Or terbutaline (BRETHINE) injection 0.25 mg (COMPLETED) 0.25 mg, subcutaneous, Once as needed, distress and uterine tachysystole if no IV access, Starting on Sun05/14/22 at 2032, For 1 dose, L&D Pre-Delivery, Notify physician immediately if administration is required., Indications: distress and uterine tachysystole documented in this encounter Orders Medications Ordered That Cyrus ht Not Have Been Administered Count Last Ordered Date First Ordered Date Carrier Fluids for Secondary Infusion - 0.9% Sodium Chloride 2 05/15/2022 05/14/2022 dextrose 5% and Lactated Ringer's infusion 1 05/15/2022 diphenhydrAMINE (BENADRYL) injection 25 mg 1 05/15/2022 fentaNYL-bupivacaine preserv ative free in 0.9% sodium chloride 2 mcg/mL- 0.1 % cassette (premix) 1 05/15/2022 hydrocortisone (ANUSOL-HC) 2 .5 % rectal cream 1 05/15/2022 HYDROmorphone (DILAUDID) injection 0.2 mg 1 05/15/2022 HYDROmorphone (DILAUDID) injection 0.4 mg 1 05/15/2022 Lactated Ringer's (LR) bolus 1,000 mL 2 11/202205/14/2022 Lactated Ringer's (LR) infusion 1 bahfxzb-cqddp-dnwspli (MMR) 1,000-12,500 TCID50/0.5 mL live vaccine 0.5 mL 1 05/15/2022 naloxone (NARCAN) 0.4 mg/mL injection 0.04-0.4 mg 3 05/15/2022 05/14/2022 ondansetron (ZOFRAN) injection 4 mg 3 05/1505/14/2022 ondansetron ODT (ZOFRAN-ODT) disintegrating tablet 4 mg 3 05/15/2022 05/14/2022 oxytocin 30 unit/500 mL (0.0 6 unit/mL) in sodium chloride 0.9% (premix) solution 4 05/15/2022 polyethylene glycol (MIRALAX) packet 17 g 1 05/15/2022 simethicone (MYLICON) chewab le tablet 80 mg 1 05/15/2022 sodium chloride 0.9% flush 0.5-20 mL 4 05/0605/14/2022 sodium chloride 0.9% irrigation 1 04/10/202 3 sterile water irrigation 1 05/15/2022 varicella zoster (VARIVAX) v accine - live 0.5 mL 1 05/15/2022 carboprost (HEMABATE) injection 250 mcg 1 0 05/14/2022 cefOXitin (MEFOXITIN) 1,000 mg/10 mL in sterile water (premix) 1,000 mg 1 05/14/2022 fentaNYL 2500 mcg/50 mL nat ette/syringe (premix) 1 05/14/2022 lidocaine PF (XYLOCAINE) 10 mg/mL (1 %) preservative free injection 100 mg 1 05/14/2022 loperamide (IMODIUM) capsule 2 mg 1 023 methylergonovine (METHERGINE ) injection 0.2 mg 1 05/14/2022 miSOPROStoL (CYTOTEC) tablet 800 mcg 1 10/2022 oxytocin (PITOCIN) injection 10 Units 1 10/2022 terbutaline (BRETHINE) injection 0.25 mg 1 05/14/2022 tranexamic acid (CYKLOKAPRON ) 1,000 mg/100 mL (10 mg/mL) in sodium chloride (premix) 1,000 mg 1 05/14/2022 Admission Count Last Ordered Date First Orde red Date ADMIT TO L&D INPATIENT 1 05/14/2022 Transfer Count Last Ordered Date First Orde red Date TRANSFER PATIENT TO NEW UNIT 1 05/15/2022 Discharge Count Last Ordered Date First Orde red Date DISCHARGE PATIENT 1 05/17/2022 CORE MEASURES Count Last Ordered Date First Ord ered Date REASON FOR NO VTE PROPHYLAXIS AT ADMISSION 1 05/14/2022 documented in this encounter 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
--- OUTSIDE RECORDS SUMMARY | 2024-02-17 13:56 | XMS_ITS | Encounter Summary ---
Author Organization [facility] Address [address] [place] [address] Care Team Providers Care Count Team Clerk Name Role Phone Kit Arriola MD Primary Care Provider Reason for Visit * Auth/Cert (Routine) Specialty Diagnoses / Procedures Referred By Kimberley t Referred To Contact Diagnoses Encounter for induction of labor Procedures NA Referral ID Status Reason Start Date Expiration Date Visits Re quested Visits Authorized [id number] 1 1 Encounter Details Date Type Department Care Team (Late st Contact Info) Description 05/15/2022 6:15 AM CDT - 05/15/2022 8:45 AM CDT Surgery [facility] [address] [place] [id number] Sumi Castillo MD [address] [facility] [id number] [place] [address] SECTION Surgery Details Date/Time Status Location OR Service Patient Class Case Class Case Type Trauma Case? 05/15/2022 6:15 AM Posted [facility] L&D OR L&D OR 2 Obstetrics / Gynecology Inpatient Panel 1 Procedure LRB Anes Op Region Wound Class Comments SECTION N/A Choice Abdomen Class II - Cl luanne Contaminated Surgeon Surgeon Role Service Panel Sumi Castillo MD Primary Obstetrics / Gynecol ogy 1 Geetha Early MD Resident - Assisting Obstetric s / Gynecology 1 Kayla Fung MD Co-Surgeon Obstetrics / Gynecology 1 Case Notes Level 2 c/s for intolerance of labor documented in this encounter Social History Tobacco [...] more drinks on one occasion? Never 05/14/2022 Personal Safety Answer Date Recorded Have you ever been in or are you currently in a harmful physical or emotional relationship or is someone making you feel afraid or unsafe? Denies 05/14/2022 Comments No Sex and Gender Information Value Date Recorded Sex Assigned at Not on file Legal Sex Female 5:56 PM [employer] Gender Identity Female 07/16/2022 10:05 AM CDT Sexual Orientation Straight 07/16/2022 10 :05 AM CDT documented as of this encounter Last Filed Vital Signs Vital Sign Reading Time Taken Comments Blood Pressure 108/59 05/15/2022 8:45 AM CDT Pulse 93 05/15/2022 8:45 AM CDT Temperature 37 ??C (98.6 ??F) 05/15/2022 2:24 AM CDT Respiratory Rate 16 05/15/2022 8:40 AM CDT Oxygen Saturation 99% 05/15/2022 8:45 AM CDT Inhaled Oxygen Concentration - - [...] Cell Culture-based MDCK, Preservative Free, Antibiotic Free, Owmkyyozzaxim40/11/2022 Pfizer SARS-CoV-2 Vaccination (12+ yrs) PURPLE 02/09/2020, [...] or frequency recorded. Generic drug: PNV with zkurlag-kyiw-TU Outpatient Follow-Up: Future Appointments Date Time Provider Department Center 06/26/2022 1:00 PM OB TEAM 2 [facility] 7 PARTS DESIGNER [facility] 7 OB Buffy Vanegas NP 05/17/22 [...] first call our OB communication center at [phone]. * If you have SEVERE illness including [...] hours). Do NOT supplement unless instructed by [employer]. Call your [employer] if your baby has poor eating habits [...] call our centralized OB communication center at [phone]. Do not come to the hospital or clinic until you speak with a provider. *Contact Information for your primary OB: [facility] - [facility] - [id number] [place], [place] [address]Iyrz to schedule an appointment to be seen within 2 and 6 weeks. No future appointments. Discharge Medications: Take the following medications. Your medication list ASK your doctor about these medications folic acid 1 mg tablet No dose, route, or frequency recorded. Commonly known as: FOLVITE PrePlus 27 mg iron- 1 mg tablet No dose, route, or frequency recorded. Generic drug: PNV with oofsktn-lvtw-PW documented in this encounter Medications at Time [...] in this encounter Progress Notes * Buffy Vanegas NP - 05/17/2022 8:58 AM CDT Post Progress Note Admission Date: 05/14/2022 SOPHIE Briseno is a 32 y.o. postop day [...] (LOVENOX) syringe 40 mg 40 mg subcutaneous Daily-2099 Geetha Early MD 40 mg at 05/16/22 2106 ferrous sulfate tablet 325 mg 65 mg of elemental iron oral Daily with breakfast Melva Garcia MD 325 mg at 05/17/22 0900 hydrocortisone (ANUSOL-HC) 2.5 % rectal cream rectal TID PRN Geetha Early MD ibuprofen (ADVIL,MOTRIN) tablet 600 mg 600 mg oral Q6H Geetha Early MD 600 mg at 05/17/22 0449 Lactated Ringer's (LR) infusion 125 mL/hr intravenous Continuous Geetha Early MD hugazsr-mthjw-qrpvcmk (MMR) 1,000-12,500 TCID50/0.5 mL live vaccine 0.5 [...] 5 mg at 05/16/22 1509 PNV with kdeonza-mwuq-TF tablet 1 tablet 1 tablet oral Daily [...] Disposition: Continue routine postoperative care Buffy Vanegas UG DESIGNER-C 05/17/22 Cosigned by Kayla Fung MD at [...] ANGIE PRN Medications diphenhydrAMINE hydrocortisone HYDROmorphone HYDROmorphone uzgzzuf-pogqy-hgqvqlb naloxone ondansetron ODT OR ondansetron ondansetron ODT OR ondansetron oxyCODONE oxyCODONE polyethylene glycol simethicone sodium chloride 0.9% sodium chloride 0.9% sterile water varicella zoster Vitals: Temp: [36.6 ??C (97.9 ??F)-37.2 ??C (99 ??F)] 36.8 ??C (98.2 ??F) Pulse: [73-103] 78 BP: (103-147)/(54-88) 117/69 Resp: [16-17] 16 SpO2: [97 %-100 %] 99 % Intake/Output Summary (Last 24 hours) at 05/16/2022 0727 Last data filed at 05/16/2022 0615 Gross [...] continue routine PP care. Mary Soriano MD TACTICAL DEBRIEFER OFFICER PGY-4 05/16/22 7:46 AM Cosigned by Kayla [...] to hands and knees without improvement. SVE /-2. Amniofusion running. Terbutaline given at 0503 , [...] 08/13/2021 SpO2 100% BMI 33.03 kg/m?? SVE: 6 75 /-2 Monitoring: Baseline: 130 bpm, Variability: Moderate, [...] 08/13/2021 SpO2 99% BMI 33.03 kg/m?? SVE: 5 50 /-3; no palpable cord examined by myself [...] to L lying - Will hold fentanyl CLINICAL MANAGER at this time - Will hold starting OT pending tolerance and contraction pattern Osmin Duffy MD * Geetha Early MD - 05/15/2022 3:02 AM CDT Labor Update Note S: Patient feeling some mild ctx, had fentanyl CLINICAL MANAGER. O: BP 136/70 Pulse 86 Temp 37 [...] prior to starting OT. Geetha Early MD TACTICAL DEBRIEFER OFFICER PGY-1 * Carolina Loams MD - 05/15/2022 1:05 AM CDT Labor Update Note S: Patient comfortable with fentanyl CLINICAL MANAGER O: BP 130/76 Pulse 83 Temp 36.8 [...] - PCN for GBS+ Geetha Early MD TACTICAL DEBRIEFER OFFICER PGY-1 * Carolina Lomas MD - 05/14/2022 [...] rrIOL Estimated Date of Delivery: 05/20/22 Provider: [facility] HPI: Roxana Briseno is a [...] 4 Current 3 Ectopic 2018 2 Term 2014 F Vag-Spont BELEM 1 Ectopic PARTS DESIGNER History: Patient's last menstrual period was 08/13/2021. [...] 11/03/2021 IDCOOMB Negative 11/21/2021 SCRINDANTIGL negative 11/03/2021 ELPYQYN2YKN NON-REACTIVE 04/28/2022 LABRPR NON-REACTIVE 02/08/2022 RUBELIGG 3.73 [...] discussed with Dr. Castillo. Geetha Early MD TACTICAL DEBRIEFER OFFICER PGY-1 Cosigned by Sumi Castillo MD at [...] part of the patient???s medical record. Sincerely, June Davis Health Information Management * Initial Assessments - Sammi Lopez LCSW - 05/17/2022 3:59 PM CDT Reason for Admission ARGELIA (Roxana Briseno 1990) was admitted on 05/14/2022 for Encounter for induction of labor [Z34.90]. Social Work referral for SDOH check-in. Medical History OB-PARTS DESIGNER [facility] Pediatric follow-up to be scheduled with [facility]. Medical insurance coverage is through [employer]. Information Baby boy was born on 05/15/2022 at EGA 39.2 weeks and has been named Nicolas. Delivery was . weighed 7lbs 4.4oz at delivery. [place] will be formula fed. This is mother's 2nd child. Social History Current [place] is [address] [place] [address], where she lives with spouse and children. Currently [phone] (home) [phone] (work) is the best phone number for future contact. Mother noted to have 1 other child(hiram): Lorene (2015) MOB reports that her SO and family will be a positive support for her and her child. Father of the baby, Luke Briseno, can be reached at [phone]. FOB has been present and supportive at [...] support and additional needs should they arise. Sammi Lopez, SEASONAL TAX PREPARER, DOCK OR PIER LABORER Women and Infants Design Engineering Technician [facility] * Plan of Care - Delia Beyer [...] Maternal Information Has mother breastfed before? No to breast within first hour of ? [...] for anesthesia. She delivered a viable male with apgars 2 and 9 at one [...] Early MD - 05/15/2022 7:52 AM CDT [facility] Section Delivery Note Patient's Name: Roxana Briseno : 1990 Attending Physician: Sumi Castillo MD Surgical Team: Surgeon(s) and Role: * Sumi Castillo MD - Primary * Geetha Early MD - Resident - Assisting * Kayla Fung MD - Co-Surgeon Clinic: [facility] Primary Diagnoses: Intrauterine at 39w2d, delivered IVF [...] on delivery. Handed to pediatrics for stimulation Infant: living 7 lb 4.4 oz (3.3 kg) male APGARs: 2 / 9 Disposition: [place] Nursery Operative Note Preoperative Diagnosis: Intrauterine at [...] pediatrics team were made aware. Operative Findings: in vertex presentation. APGARS were 2 / [...] The bladder blade was removed and the infant's head was brought to the level of [...] ooze was noted from lower extension. An [place] stitch was throw with improvement in hemostasis. [...] portions of the procedure. Geetha Early MD TACTICAL DEBRIEFER OFFICER PGY-1 Cosigned by Sumi Castillo MD at [...] CBC without differential (05/16/2022 4:51 AM CDT) [facility] WBC 17.6(H) 3.8 - 9.9 K/cumm [facility] Hgb 7.7(L) 11.9 - 15.5 g/dL [facility] Hct 23.1(L) 35.6 - 45.5 % [facility] Plt 304 150 - 400 K/cumm [facility] MPV 10.6 9.1 - 12.3 fL [facility] RBC 2.70(L) 3.90 - 5.20 M/cumm [facility] MCV 85.6 81.3 - 96.4 fL [facility] MCH 28.5 27.1 - 33.3 pg [facility] MCHC 33.3 32.3 - 35.7 g/dL [facility] RDW CV 14.9 11.1 - 14.9 % [facility] RDW SD 45.6 35.7 - 48.1 fL [facility] NRBC abs 0.00 0.00 - 0.01 K/cumm [facility] Blood 05/16/2022 4:51 AM CDT 05/16/2022 5:10 AM CDT us Sumi Castillo MD LAB BLOOD ORDERABLES Final Re sult [facility] [place] [address] * eGFR (05/14/2022 9:24 PM CDT) eGFR >90 90 - 130 mL/min/1. 73 m2 [facility] Comment: Interpretive Data Reference Interval Normal [...] of Race in Diagnosing Kidney Disease, JASN 202). The CKD-EPI equation should not be used for patients with unstable renal function and has not been validated in children and those over 70. Current interpretive data was last reviewed 2020. Blood 05/14/2022 9:24 PM CDT 05/14/2022 9:39 PM CDT Marylin Rene MD LAB BLOOD ORDERABLES Fi nal Result Performing Organization Address City/[facility]/ZIP Co de Phone Number [facility] [place] [address] * RPR Blood (05/14/2022 9:24 PM CDT) Pathologist [facility] RPR Nonreactive Nonreactive [facility] Blood 05/14/2022 9:24 PM CDT 05/14/2022 9:39 PM CDT Marylin Rene MD LAB MICROBIOLOGY - GENE RAL ORDERABLES Final Result Performing Organization Address [facility] de Phone Number [facility] Department [place] [address] * (ABNORMAL) Comprehensive metabolic panel (05/14/2022 9:24 PM CDT) [facility] Sodium 138 135 - 145 mmol/L [facility] Potassium, pl 3.3 3.3 - 4.9 mmol/L [facility] Chloride 106 97 - 110 mmol/L [facility] CO2 22 22 - 32 mmol/L [facility] Anion gap 10 2 - 15 mmol/L [facility] BUN 10 8 - 25 mg/dL [facility] Creatinine 0.72 0.60 - 1.10 mg/dL [facility] Glucose 101 70 - 199 mg/dL [facility] Comment: Interpretive Data Fasting glucose >/= [...] 2022. Calcium 8.6 8.5 - 10.3 mg/dL [facility] Bilirubin, total 0.2 0.1 - 1.2 mg/dL [facility] Protein, pl 6.2(L) 6.5 - 8.5 g/dL [facility] Albumin 3.3(L) 3.5 - 5.0 g/dL [facility] Alk phos 175(H) 40 - 130 Units/L [facility] ALT 14 7 - 45 Units/L [facility] AST 16 10 - 45 Units/L [facility] Blood 05/14/2022 9:24 PM CDT 05/14/2022 9:39 PM CDT Marylin Rene MD LAB BLOOD ORDERABLES Fi nal Result [facility] [place] [address] * (ABNORMAL) CBC without differential (05/14/2022 9:24 PM CDT) WBC 11.2(H) 3.8 - 9.9 K/cumm [facility] Hgb 10.3(L) 11.9 - 15.5 g/dL [facility] Hct 31.2(L) 35.6 - 45.5 % [facility] Plt 328 150 - 400 K/cumm [facility] MPV 10.4 9.1 - 12.3 fL [facility] RBC 3.73(L) 3.90 - 5.20 M/cumm [facility] MCV 83.6 81.3 - 96.4 fL [facility] MCH 27.6 27.1 - 33.3 pg [facility] MCHC 33.0 32.3 - 35.7 g/dL [facility] RDW CV 14.5 11.1 - 14.9 % [facility] RDW SD 43.7 35.7 - 48.1 fL [facility] NRBC abs 0.00 0.00 - 0.01 K/cumm [facility] Blood 05/14/2022 9:24 PM CDT 05/14/2022 9:40 PM CDT Marylin Rene MD LAB BLOOD ORDERABLES Fi nal Result Performing Organization Address [facility] de Phone Number [facility] [place] [address] * Type and screen (05/14/2022 9:24 PM CDT) ABO Rh A Positive [facility] Joanne, indirect Negative [facility] Blood 05/14/2022 9:24 PM CDT 05/14/2022 9:54 PM CDT Narrative [facility] - 05/14/2022 10:46 PM CDT Has the patient had Daratumumab or Isatuximab in the past 6 months?->Unknown Marylin Rene MD LAB BLOOD BANK TEST ORD ERABLES Final Result Performing Organization Address [facility] de Phone Number [facility] [place] [address] documented in this encounter Visit Diagnoses Not on filedocumented in this encounter Admitting Diagnoses Diagnosis Encounter [...] Given 05/16/2022 3:09 PM CDT 1,000 mg docusate sodium (COLACE) capsule 100 mg [...] Sun05/16/22 at 2100, Indications: Deep Vein Thrombosis PreventionIndications:Deep Vein Thrombosis Prevention Given 05/16/2022 9:06 PM CDT 40 mg Left Upper Arm ferrous sulfate tablet 325 mg 325 mg [...] Given 05/16/2022 1:20 PM CDT 600 mg ondansetron (ZOFRAN) injection 4 mg 4 [...] Given 05/16/2022 10:29 AM CDT 5 mg PNV with woigkrs-xcli-LO tablet 1 tablet 1 tablet, oral, Daily, [...] PM CDT 1 spray sodium chloride 0.9% flush 0.5-20 mL 0.5-20 [...] PM CDT 10 mL sodium chloride 0.9% irrigation As needed, Starting on Sun05/15/22 at 0637, Intra-Op Given 05/15/2022 6:37 AM CDT 1,000 mL sterile water irrigation As needed, Starting on Sun05/15/22 at 0637, Intra-Op Given 05/15/2022 6:37 AM CDT 1,000 mL documented in this encounter Active and Recently [...] Merino RN)0900 (Due - Provider: Benjamin Espino [facility])1500 (Due - Provider: Benjamin Espino RPh) acetaminophen [...] Ravi RN) 0315 (Given - Provider: Enriqueta Ravi, RN) docusate sodium (COLACE) capsule 100 mg 100 mg, oral, 2 times daily, First dose on Sun05/15/22 at 0915, Hold if diarrhea., Indications: constipation, Stool Softener 1013 (Given - Provider: Jemma Mark RN)2131 (Given - Provider: Enriqueta Ravi, RN) 0826 (Given - Provider: Rina Ty RN)2106 (Given - Provider: Kayla Merino RN) 0900 (Given - Provider: Delai Beyer RN) enoxaparin (LOVENOX) syringe 40 mg 40 mg, subcutaneous, Daily (for enoxaparin), First dose on Sun05/16/22 at 2100, Indications: Deep Vein Thrombosis Prevention 2106 (Given - Provider: Kayla Merino RN) ferrous sulfate tablet 325 mg 325 mg (65 mg of elemental iron), oral, Daily with breakfast, First dose on Sun05/16/22 at 0800, Indications: Iron Deficiency Anemia 0826 (Given - Provider: Rina Ty RN) 0900 (Given - Provider: Delia Beyer RN) ibuprofen (ADVIL,MOTRIN) tablet 600 mg 600 mg, oral, Every 6 hours, First dose on Sun05/16/22 at 0600, Start in 24 hours after Anesthesia no longer covering., Indications: Cramps 0611 (Given - Provider: Enriqueta Ravi RN)1320 (Given - Provider: Rina Ty RN)2106 (Given - Provider: Kayla Merino RN) 0000 (Not Given - Provider: Kayla Merino RN - Reason: Patient/family refused)0449 (Given - Provider: Kayla Merino RN)1200 (Due - Provider: Benjamin Espino [facility]) ketorolac (TORADOL) 30 mg/mL (1 mL) injection 30 mg (COMPLETED) 30 mg, intravenous, Every 6 hours scheduled, First dose on Sun05/15/22 at 1330, For 3 doses, Max 4 doses. Anesthesia orders for the first 24 hours ., Indications: Pain 1323 (Given - Provider: Candy Zuniga RN)1843 (Given - Provider: Canyd Zuniga RN) 0007 (Given - Provider: Enriqueta Ravi RN) Lactated Ringer's (LR) bolus 1,000 mL (COMPLETED) 1,000 mL, intravenous, at 1,000 mL/hr, Administer over 1 Hours, Once, On Sun05/15/22 at 1045, For 1 dose 1014 (New Bag - Provider: Jemma Mark RN) penicillin G potassium 3 million units/50 mL in dextrose (premix) 3 Million Units (CANCELED)(Linked Group 1) 3 Million Units, intravenous, Administer over 30 Minutes, Every 4 hours, First dose on Sun05/15/22 at 0210, L&D Pre-Delivery, Until delivery, Indications: Prevention of Group B Streptococcal Infection 0215 (New Bag - Provider: Irma Parnell RN)0610 (Due - Provider: Ravi Caceres [facility]) PNV with vgqubmw-aijo-RY tablet 1 tablet 1 tablet, oral, Daily, First dose on Sun05/15/22 at 0915, Begin when normal bowel activity resumes., Indications: Vitamin Deficiency Prevention 0915 (Due) 0825 (Given - Provider: Rina Ty, COCO) 0900 (Given - Provider: Delia Beyer, COCO) senna (SENOKOT) tablet 1 tablet 1 tablet, oral, 2 times daily, First dose on Sun05/15/22 at 0915, Hold if diarrhea., Indications: constipation 1013 (Given - Provider: Jemma Mark, COCO)2130 (Given - Provider: Enriqueta Ravi RN) 0826 (Given - Provider: Rina Ty, COCO)2106 (Given - Provider: Kayla Merino, COCO) 0900 (Given - Provider: Delia Beyer, COCO) sodium chloride 0.9% bolus 600 mL (COMPLETED) 600 mL, intrauterine, at 600 mL/hr, Administer over 1 Hours, Once, On Sun05/15/22 at 0530, For 1 dose 0451 (New Bag - Provider: Irma Parnell RN)0558 (Stopped - Provider: Irma Parnell RN) sodium chloride 0.9% flush 0.5-20 mL 0.5-20 [...] Enriqueta Ravi, COCO)1600 (Given - Provider: Rina Riya Ty, RN)2200 (Given - Provider: Kayla Merino RN) 0656 (Not Given - Provider: Kayla Merino [...] 0530 0559 (Rate/Dose Change - Provider: Irma Parnell RN)0610 (Stopped - Provider: Jemma Mark RN) PRN Medication Order 05/15/2022 05/16/2022 05/17/2022 diphenhydrAMINE (BENADRYL) injection 25 mg () 25 mg, intravenous, Administer over 2 Minutes, Every 6 hours PRN, itching, Starting on Sun05/15/22 at 0829, For 24 hours, May switch to nalbuphine if itching not resolved in 30 minutes. Anesthesia orders for the first 24 hours ., Indications: Itching 1522 (Given - Provider: Candy Zuniga RN) 0007 (Given - Provider: Enriqueta Ravi RN) diphenhydrAMINE (BENADRYL) injection 25 mg 25 mg, intravenous, Administer over 2 Minutes, Every 6 hours PRN, itching, Starting on Sun05/16/22 at 1049, For 24 hours, May switch to nalbuphine if itching not resolved in 30 minutes. Anesthesia orders for the first 24 hours ., Indications: Itching 1059 (Given - Provider: Rina Ty RN) hydrocortisone (ANUSOL-HC) 2.5 % rectal cream rectal, [...] placement 0350 (New Bag - Provider: Irma Parnell RN) tvudvxi-nqeyy-xxcduos (MMR) 1,000-12,500 TCID50/0.5 mL live vaccine 0.5 mL 0.5 mL, subcutaneous, During hospitalization, immunization, Starting on Sun05/15/22 at 0831, For 1 dose, If not rubella immune. Warning: This is a live or live attenuated vaccine. Refrigerate, Indications: Attoipo-Usuyt-Qfnauhp Vaccination ondansetron (ZOFRAN) injection 4 mg(Linked Group [...] Provider: Candy Zuniga RN)1844 (Given - Provider: Candy Zuniga RN) 0007 (Given - Provider: Enriqueta Ravi, COCO)0611 (Given - Provider: Enriqueta Ravi RN) polyethylene glycol (MIRALAX) packet 17 g [...] at 1554 1559 (Given - Provider: Rina Ty RN) sodium chloride 0.9% flush 0.5-20 mL 0.5-20 [...] Count Last Ordered Date First Ordered Date diphenhydrAMINE (BENADRYL) injection 25 mg 3 05/16/2022 05/15/2022 ferrous sulfate tablet 325 mg 1 05/16/2022 sodium chloride (OCEAN) 0.65 % nasal spray 1 spray 1 05/16/2022 acetaminophen (TYLENOL) tablet 1,000 mg 2 0 05/15/2022 Carrier Fluids for Secondary Infusion - 0.9% Sodium Chloride 2 05/15/2022 05/14/2022 dextrose 5% and Lactated Ringer's infusion 2 05/15/2022 05/14/2022 docusate sodium (COLACE) capsule 100 mg 1 0 05/15/2022 enoxaparin (LOVENOX) syringe 40 mg 1 2022 fentaNYL-bupivacaine preserv ative free in 0.9% sodium chloride 2 mcg/mL- 0.1 % cassette (premix) 1 05/15/2022 hydrocortisone (ANUSOL-HC) 2 .5 % rectal cream 1 05/15/2022 HYDROmorphone (DILAUDID) injection 0.2 mg 1 05/15/2022 HYDROmorphone (DILAUDID) injection 0.4 mg 1 05/15/2022 ibuprofen (ADVIL,MOTRIN) tablet 600 mg 1 ketorolac (TORADOL) 30 mg/mL (1 mL) injection 30 mg 1 05/15/2022 Lactated Ringer's (LR) bolus 1,000 mL 4 11/202205/14/2022 Lactated Ringer's (LR) infusion 1 qguysal-mukyl-zvsvhjt (MMR) 1,000-12,500 TCID50/0.5 mL live vaccine 0.5 mL 1 05/15/2022 naloxone (NARCAN) 0.4 mg/mL injection 0.04-0.4 mg 3 05/15/2022 05/14/2022 ondansetron (ZOFRAN) injection 4 mg 3 05/1505/14/2022 ondansetron ODT (ZOFRAN-ODT) disintegrating tablet 4 mg 3 05/15/2022 05/14/2022 oxyCODONE (ROXICODONE) tablet 5 mg 2 2022 oxytocin 30 unit/500 mL (0.0 6 unit/mL) in sodium chloride 0.9% (premix) solution 4 05/15/2022 PNV with abyhxhh-ymbb-IW tablet 1 tablet 1 05/15/2022 polyethylene glycol (MIRALAX) packet 17 g 1 05/15/2022 senna (SENOKOT) tablet 1 tablet 1 simethicone (MYLICON) chewab le tablet 80 mg 1 05/15/2022 sodium chloride 0.9% bolus 600 mL 1 023 sodium chloride 0.9% flush 0.5-20 mL 6 05/0605/14/2022 sodium chloride 0.9% infusion 1 05/15/2022 varicella zoster (VARIVAX) v accine - live 0.5 mL 1 05/15/2022 carboprost (HEMABATE) injection 250 mcg 1 0 05/14/2022 cefOXitin (MEFOXITIN) 1,000 mg/10 mL in sterile water (premix) 1,000 mg 1 05/14/2022 fentaNYL 2500 mcg/50 mL nat ette/syringe (premix) 2 05/14/2022 lidocaine PF (XYLOCAINE) 10 mg/mL (1 %) preservative free injection 100 mg 1 05/14/2022 loperamide (IMODIUM) capsule 2 mg 1 023 methylergonovine (METHERGINE ) injection 0.2 mg 1 05/14/2022 miSOPROStol (CYTOTEC) split tablet 25 mcg 1 05/14/2022 miSOPROStoL (CYTOTEC) tablet 800 mcg 1 10/2022 oxytocin (PITOCIN) injection 10 Units 1 10/2022 penicillin G potassium 3 mil lion units/50 mL in dextrose (premix) 3 Million Units 1 05/14/2022 penicillin G potassium 5 mil lion units/50 mL in sterile water (premix) 5 Million Units 1 05/14/2022 terbutaline (BRETHINE) injection 0.125 mg 1 05/14/2022 terbutaline (BRETHINE) injection 0.25 mg 1 05/14/2022 [...] 05/14/2022 documented in this encounter Care Teams Count Team Clerk Relationship Specialty Start Date End Date Kit Arriola MD [address] [address] PCP - General Emergency Medicine 12/19/18 documented as of this encounter
--- OUTSIDE RECORDS SUMMARY | 2024-02-17 13:56 | XMS_ITS | Encounter Summary ---
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 Gender Identity Female 07/16/2022 10:05 AM CDT Sexual Orientation Straight 07/16/2022 10 :05 AM CDT documented as of this encounter Last Filed Vital Signs Vital Sign Reading Time Taken Comments Blood Pressure 127/92 05/07/2022 11:59 AM CDT Pulse 99 05/07/2022 11:59 AM CDT Temperature 36.7 ??C (98.1 ??F) 05/07/2022 11:59 AM C DT Respiratory Rate 18 05/07/2022 11:59 AM CDT Oxygen Saturation 99% 05/07/2022 11:59 AM CDT Inhaled Oxygen Concentration - - Weight - - Height - - Body Mass Index - - documented in this encounter Discharge Instructions * Discharge Instr - Activity* Cris Lainez RN - 05/07/2022 1:39 PM CDT Up as tolerated * Discharge Instr - Diet* Cris Lainez RN - 05/07/2022 1:39 PM CDT Regular * Attachments The following attachments cannot be sent through Care Everywhere. * Early Labor Signs (Discharge Care) (Cuban) documented in this encounter Medications at [...] or self care documented in this encounter Procedure Notes * Carlie Portillo NP - 05/07/2022 1:41 PM CDT Procedures Electronic Monitoring/Non-Stress Test Date: 05/07/22 Time: 7220-8830 Roxana Briseno is a 32 y.o. female at 38w1d gestation FHR Baseline: 150 Variability: moderate Accelerations: present Decelerations: absent Contractions: present, q5-10minutes Reactive: Yes Comments: reassuring I have reviewed NST and instructed RN to take off monitor NILSON Gordon Cosigned by Sumi Castillo MD at 05/07/2022 3:55 PM CDT documented in this encounter Nursing Notes * Cris Lainez RN - 05/07/2022 1:40 PM CDT Evaluated in [facility] 9 for labor symptoms. VS WNL, FHTs reactive with uterine activity noted. Cervix unchanged. Reports movement and denies LOF, vaginal bleeding. Discharged to home with labor precautions reviewed and given. Discussed with Dr. Castillo. Verbalizes understanding of instructions. documented in this encounter Plan of Treatment Not on file documented as of this encounter Visit Diagnoses Not on filedocumented in this encounter Orders Discharge Count Last Ordered Date First Orde red Date DISCHARGE PATIENT 1 05/07/2022 documented in this encounter Care Teams Crm Business Analyst Relationship Specialty Start Date End Date Kit Arriola MD [address] [place] [address] PCP - General Emergency Medicine 12/19/18 documented as of this encounter
--- OUTSIDE RECORDS SUMMARY | 2024-02-17 13:56 | XMS_ITS | Encounter Summary ---
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 She has also been experiencing loose stool/diarrhea since yesterday. Pt said the back pain started last night and is currently happening intermittently around every 10 minutes. When she awoke this morning she noted lots ofpelvic pressure. Pt has no other symptoms of LOF or VB. Told pt the back pain could possibly be back contractions. Pt said at her last appt her cervix is already around 2 cm. Advised her to come to the [facility] to be checked out given the new pelvic pressure and diarrhea she is experiencing. Pt is waiting for to return from the store to drive her. Told pt she can try to take some Tylenol whileshe is waiting. Pt verbalized understanding. Reason for Disposition [1] Having contractions or other symptoms of labor AND [2] 37 or more weeks (i.e., term ) [1] History of prior delivery (multipara) AND [2] contractions < 10 minutes apart AND [3] present 1 hour Answer Assessment - Initial Assessment Questions 1. ONSET: When did the pain begin? Last night 2. LOCATION: Where does it hurt? (upper, mid or lower back) Lower back 3. SEVERITY: How bad is the pain? (e.g., Scale 1-10; mild, moderate, or severe) - MILD (1-3): doesn't interfere with normal activities - MODERATE (4-7): interferes with normal activities or awakens from sleep - SEVERE (8-10): excruciating pain, unable to do any normal activities Moderate 4. PATTERN: Is the pain constant? (e.g., yes, no; constant, intermittent) Intermittent 5. RADIATION: Does the pain shoot into your legs or elsewhere? No 6. CAUSE: What do you think is causing the back pain? Unsure, possibly contractions 7. BACK OVERUSE: Any recent lifting of heavy objects, strenuous work or exercise? No 8. MEDICATIONS: What have you taken so far for the pain? (e.g., nothing, acetaminophen) No 9. NEUROLOGIC SYMPTOMS: Do you have any weakness, numbness, or problems with bowel/bladder control? No 10. OTHER SYMPTOMS: Do you have any other symptoms? (e.g., fever, abdominal pain, burning with urination, blood in urine, fluid leaking from vagina) Diarrhea 11. YOBANI: What date are you expecting to deliver? 05-20-22 Protocols used: - Back [id number], - Gnxfp-PEYPQ-NG documented in this encounter Plan of Treatment Not on file documented as of this encounter Visit Diagnoses Not on filedocumented in this encounter Care Teams Bullet Assembly Press Setter Operator Relationship Specialty Start Date End Date Kit Arriola MD [address] [address] PCP - General Emergency Medicine 12/19/18 documented as of this encounter
--- OUTSIDE RECORDS SUMMARY | 2024-02-17 13:56 | XMS_ITS | Encounter Summary ---
Author Organization [facility] Healthcare Address [address] [place] [address] Care Team Providers Care Retail Sales Specialist Name Role Phone Kit Arriola MD Primary Care Provider [phone] Encounter Details Date Type Department Care Team (Late st Contact Info) Description 08/19/2022 E-Visit [facility] and [facility] MyChart [facility] [place] [address] Mychart, [facility] Provider [address] [place], [place] [id number] E-Visit for Headache Social History Tobacco Use Types Packs/Day Years [...] often do you attend chur ch or religion services? Never 05/18/2022 Do you belong to any clubs o r organizations such as orthodoxy groups, unions, fraternal or athletic groups, or [...] in a half-way (including now)? 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
--- OUTSIDE RECORDS SUMMARY | 2024-02-17 13:56 | XMS_ITS | Encounter Summary ---
Author Organization [facility] Address [address] [place] [address] Phone Care Team Providers Care Profiling Machine Set Up Operator Name Role Phone Kit Arriola MD Primary Care Provider [phone] Reason for Referral * Diagnostic Imaging (Routine) - Closed Specialty Diagnoses / Procedures Referred By Kimberley t Referred To Contact Diagnoses Marginal insertion of umbilical cord affecting management of mother in third trimester Procedures US Ob Follow Up Nanci Jolly NP [address] [place] [id number] Phone: tel: fax: [facility] (All Locations) Referral ID Status Reason Start Date Expiration Date Visits Re quested Visits Authorized [id number] Closed 03/01/2022 03/31/2023 1 1 CAL INSTRUMENT TECHNICIAN Reason for Visit * Reason Comments Routine Visit Encounter Details Date Type Department Care Team (Late st Contact Info) Description 03/01/2022 12:45 PM MEDICAL INSTRUMENT TECHNICIAN Office Visit [facility] Obstetrics and Gynecology [address] [place] [address] Health 7th Floor [address] [place] [address] Nanci Jolly NP [address] [place] [id number] Supervision of other normal , antepartum (Primary Dx); Marginal insertion of umbilical cord affecting management of mother in third trimester Social History Tobacco Use Types Packs/Day Years [...] on file Legal Sex Female 5:56 PM MEDICAL INSTRUMENT TECHNICIAN Gender Identity Female 07/16/2022 10:05 AM CDT Sexual Orientation Straight 07/16/2022 10 :05 AM CDT documented as of this encounter Last Filed Vital Signs Vital Sign Reading Time Taken Comments Blood Pressure 110/77 03/01/2022 11:45 AM MEDICAL INSTRUMENT TECHNICIAN Pulse - - Temperature - - Respiratory Rate - - Oxygen Saturation - - Inhaled Oxygen Concentration - - Weight 84.5 kg (186 lb 3.2 oz) 03/01/2022 11:45 AM MEDICAL INSTRUMENT TECHNICIAN Height 165.1 cm (5' 5 ) 03/01/2022 11:45 AM MEDICAL INSTRUMENT TECHNICIAN Body Mass Index 30.99 03/01/2022 11:45 AM MEDICAL INSTRUMENT TECHNICIAN documented in this encounter Progress Notes * Nanci Jolly, GABRIELLE - 03/01/2022 12:45 PM CST ARCHIE - Denies lof,bleeding and or ctx's - Reports +FM - had a growth US today efw 1493g (86%), vertex, fhr 138, posterior placenta no previa, AME Nml. - notes more feet swelling at work, goes down @ night. Reviewed relief measures. - tdap today - 2T teaching - growth ordered in 4 weeks. RTC in 2 weeks Neli Jolly APRN, NILSON-BC Met with Roxana Briseno today for 28-30 week education. Patient undecided about plans to breastfeed vs. Formula feed, referred to the breast feeding guide and booklet provided. Discussed the baby friendly initiatives i.e. skin to skin, rooming in and delayed bath. Also discussed online resources and virtual tour currently being offered by [facility]. A continuous dryout operator listwas offered and accepted by the patient. Having a boy and desires circ. CAL INSTRUMENT TECHNICIAN documented in this encounter Plan of Treatment Not on file documented as of this encounter Results * US Ob Follow Up (03/29/2022 11:11 AM MEDICAL INSTRUMENT TECHNICIAN) Fetus# Fetus1 VIEWPOINT Estimated Weight 2,110 g&grams VIEWPOINT Placenta Details posterior, Previa-no, no placental masses VIEWPOINT Presentation Vertex VIEWPOINT Anatomical Region Laterality Modality Abdomen N/A Ultrasound 03/29/2022 11:1 3 AM MEDICAL INSTRUMENT TECHNICIAN Impressions 03/29/2022 12:25 PM MEDICAL INSTRUMENT TECHNICIAN Single IUP at 32w 4d for growth [...] cord insertion isagain noted. us Nanci Jolly VACUUM TRUCK DRIVER IMG OB US PROCEDURES Final Result documented in this encounter Visit Diagnoses Diagnosis Supervision of other normal , antepartum- Primary Marginal insertion of umbilical cord affecting management of mother in third trimester Marginal insertion of umbilical cord affecting management of mother in third trimester documented in this encounter Orders Immunization/Injection Count Last Ordered Date First Ordered Date TDAP VACCINE GREATER THAN OR EQUAL TO 7YO IM 1 03/01/2022 documented in this encounter Care Teams Profiling Machine Set Up Operator Relationship Specialty Start Date End Date Kit Arriola MD [address] [address] PCP - General Emergency Medicine 12/19/18 documented as of this encounter
--- OUTSIDE RECORDS SUMMARY | 2024-02-17 13:56 | XMS_ITS | Encounter Summary ---
Author Organization [facility] Address [address] [place] [address] Phone Care Team Providers Care Mine Production Engineer Name Role Phone Kit Arriola MD Primary Care Provider Reason for Visit * Reason Comments Routine Visit Encounter Details Date Type Department Care Team (Late st Contact Info) Description 05/03/2022 4:00 PM CDT Office Visit [facility] Obstetrics and Gynecology [address] [facility] Outpatient Health 7th Floor [address] [place] [address] [place] [address] [place] [address] [address] [place] [address] Supervision of other normal , [...] on file Legal 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 Gender Identity Female 07/16/2022 10:05 AM CDT Sexual Orientation Straight 07/16/2022 10 :05 AM CDT documented as of this encounter Last Filed Vital Signs Vital Sign Reading Time Taken Comments Blood Pressure 122/88 05/03/2022 4:31 PM CDT Pulse - - Temperature - - Respiratory Rate - - Oxygen Saturation - - Inhaled Oxygen Concentration - - Weight 87.5 kg (192 lb 12.8 oz) 05/03/2022 4:31 PM CDT Height 165.1 cm (5' 5 ) 05/03/2022 4:31 PM CDT Body Mass Index 32.08 05/03/2022 4:31 PM CDT documented in this encounter Progress Notes * Janice Jordan MD - 05/03/2022 4:00 PM CDT EOB Visit Patient reports doing well today. She reports mild, intermittent contractions. She denies vaginal bleeding and leakage of fluid. She endorses good movement. NST reactive and reassuring today. IOL scheduled 05/14. WAC precautions reviewed. RTC in 1 week for NST and EOB visit. documented in this encounter Plan of Treatment Not on file documented as of this encounter Visit Diagnoses Diagnosis Supervision of other normal , antepartum- Primary documented in this encounter Care Teams Mine Production Engineer Relationship Specialty Start Date End Date Kit Arriola MD [address] [address] PCP - General Emergency Medicine 12/19/18 documented as of this encounter
--- OUTSIDE RECORDS SUMMARY | 2024-02-17 13:56 | XMS_ITS | Encounter Summary ---
Author Organization [facility] Address [address] [place] [address] Phone Care Team Providers Care Project Manager Name Role Phone Kit Arriola MD Primary Care Provider [phone] Encounter Details Date Type Department Care Team (Late st Contact Info) Description 03/08/2022 Telephone [facility] Obstetrics and Gynecology [address] 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 (+) movement. Pt denies vaginal bleeding or leak of fluid. Per pt hx of labor in previous . Advised pt to go to the [facility] for evaluation. MOBILE WRECKER documented in this encounter Plan of Treatment Not on file documented as of this encounter Visit Diagnoses Not on filedocumented in this encounter Care Teams Project Manager Relationship Specialty Start Date End Date Kit Arriola MD [address] [address] PCP - General Emergency Medicine 12/19/18 documented as of this encounter
--- OUTSIDE RECORDS SUMMARY | 2024-02-17 13:56 | XMS_ITS | Encounter Summary ---
Author Organization [facility] Healthcare Address [address] [place] [address] Care Team Providers Care Medical Record Assistant Name Role Phone Kit Arriola MD Primary Care Provider [phone] Reason for Visit * Reason Comments Contractions Encounter Details Date Type Department Care Team (Latest Contact Info) Description 03/08/2022 11:07 AM FRUIT OR NUT GROWER - 03/08/2022 1:53 PM FRUIT OR NUT GROWER Hospital Encounter [address] [phone] Beth Damian MD [address] [facility] [id number] [place] [address] Discharge Disposition: Discharge to home or self [...] on file Legal Sex Female 5:56 PM FRUIT OR NUT GROWER Gender Identity Female 07/16/2022 10:05 AM CDT Sexual Orientation Straight 07/16/2022 10 :05 AM CDT documented as of this encounter Last Filed Vital Signs Vital Sign Reading Time Taken Comments Blood Pressure 114/69 03/08/2022 11:23 AM FRUIT OR NUT GROWER Pulse 94 03/08/2022 12:31 PM FRUIT OR NUT GROWER Temperature 36.7 ??C (98.1 ??F) 03/08/2022 11:[address] Respiratory Rate 16 03/08/2022 11:23 AM FRUIT OR NUT GROWER Oxygen Saturation 97% 03/08/2022 12:31 PM FRUIT OR NUT GROWER Inhaled Oxygen Concentration - - Weight 84.6 kg (186 lb 8.2 oz) 03/08/2022 11:23 AM FRUIT OR NUT GROWER Height 165.1 cm (5' 5 ) 03/08/2022 11:23 AM FRUIT OR NUT GROWER Body Mass Index 31.04 03/08/2022 11:23 AM FRUIT OR NUT GROWER documented in this encounter Discharge Instructions * Attachments The following attachments cannot be sent through Care Everywhere. * at 27 to 30 Weeks (Discharge Care) (Hong Konger) documented in this encounter Medications at Time [...] or self care documented in this encounter H&P Notes * Carlie Portillo NP - 03/08/2022 12:04 PM CST [facility] Chief Complaint: cramping Estimated Date of Delivery: 05/20/22 Provider: [facility] HPI: Roxana Briseno is a 32 y.o. female at 29w4d gestation, dated by IVF=1st [facility]. Cramping started last night, was originally intermittent, now constant 6-8/10. She denies any vaginal bleeding, leakage of fluid, dysuria, or vaginal discharge and reports positive movement. Her is complicated by IVF , h/o R sided ectopic with salpingectomy, h/o PCOS on metformin OB History Para Term AB Living 3 1 1 0 1 1 SAB IAB Ectopic Multiple Live Births 0 0 1 0 1 # Outcome Date GA Lbr Rajeev/2nd Weight Sex Delivery Anes PTL Lv 3 Current 2 Ectopic 2018 1 Term 2014 F Vag-Spont BELEM Past Medical History: Past Medical History: Diagnosis Date History of ectopic Chronic hypertension: No Diabetes: No Asthma: No Social history: Past Surgical History: Procedure Laterality Date ECTOPIC [...] does not drink Frequency of Binge Drinking: Not on file Support System: Supported by partner Safe at home: Yes Family History: family history is not on file. Family history of bleeding or clotting disorders: No Family history of defects, genetic disorders, or developmental delay: No Allergies Allergen Reactions Latex Hives Hives Morphine Hives and Itching Itching Vancomycin Hives Itching Tramadol Itching HOME MEDICATIONS : folic acid (FOLVITE) 1 mg tablet ondansetron (ZOFRAN) 4 mg tablet PrePlus 27 mg iron- 1 mg tablet prochlorperazine (COMPAZINE) 10 mg tablet Review of Systems: Negative except per HPI Vitals: Temp: [36.7 ??C (98.1 ??F)] 36.7 ??C (98.1 ??F) Pulse: [87-103] 94 Resp: [16] 16 BP: (114)/(69) 114/69 Physical Exam: General: NAD, mood appropriate Cardiovascular: deferred Pulmonary: deferred Abdomen: Gravid, non-tender Extremities: Warm and well perfused Speculum Exam: milky discharge Cervix: Closed /25 /Ballotable Wet Prep: +CC, +Whiff, +lactobaccili, ph 5.0 Monitoring: Baseline: 135 bpm, Variability: Moderate, Accelerations: Present and Decelerations: None Uterine Activity: Contractions present, q3-4 minutes Interpretation: Reactive Labs: Lab Results Component Value Date ABORH A Positive 11/21/2021 SCRIBEDABORH A+ 11/03/2021 IDCOOMB Negative 11/21/2021 [id number] NON-REACTIVE 11/03/2021 LABRPR NON-REACTIVE 02/08/2022 RUBELIGG 3.73 11/03/2021 HEPBSAG NON-REACTIVE 11/03/2021 Diagnostic Review Urine dip: POCT urinalysis dipstick Component Ref Range & Units 03/08/22 1148 Color, Urine, POC Dark Yellow Clarity, ur, POC Clear Clear Glucose, ur, POC Negative MG/DL Negative Bilirubin, ur, POC Negative, Small, Moderate, Large Negative Ketones, ur, POC Negative Negative Specific Ethel, POC 1.005 - 1.030 1.010 Blood, ur, POC Negative Negative pH, ur, POC 5.0 - 8.0 6.0 Protein, ur, POC Negative Negative Urobilinogen, urine, POC 0.2 - 1.0 mg/dL 0.2 Nitrite, ur, POC Negative Negative Leukocytes, ur, POC Negative Negative Assessment and Plan Roxana Briseno is a 32 y.o. female at 29w4d who presented with contractions # Contractions- Contractions improved with IV fluids. SSE and wet prep with mild BV. Discussed vaginal hygeine. SVE C/25/Ballot x2 1.5 hours apart. Urine unremarkable. Abd benign. Manly with contractions initially q3-4, decreased to Q5-10. No evidence of labor, UTI, dehydration, abruption, or intra- abdominal process. Reassured. Recommended frequent meals/snacks, po hydration, frequent voiding, rest as needed. Precautions given. #FWB- 135, reactive, reassuring Plan discussed with Dr. Castillo Dispo-D/C to home Carlie Portillo NP 03/08/22 Cosigned by Sumi Castillo MD at 03/08/2022 4:35 PM FRUIT OR NUT GROWER T OR NUT GROWER T OR NUT GROWER documented in this encounter Nursing Notes * Jane Robles RN - 03/08/2022 11:57 AM CST Roxana presents to [facility] 3 c/o contractions. Pt denies VB and LOF. Pt reports good FM. VSS. Cat 1 FHTs. GABRIELLE Sexton at bedside evaluating patient. IV placed, LR bolus given. Tylenol given. Pelvic exam by CUSTOMER SERVICE COORDINATOR. Pt denies further needs at this time. Pt desires to be discharged home. T OR NUT GROWER documented in this encounter Plan of Treatment Not on file documented as of this encounter Procedures Procedure Name Priority Date/Time Associated Diagnosis Comments POCT URINALYSIS DIPSTICK Routine 03/08/2022 11:48 AM FRUIT OR NUT GROWER documented in this encounter Results * POCT urinalysis dipstick (03/08/2022 11:48 AM FRUIT OR NUT GROWER) Color, Urine, POC Dark Yellow Clarity, ur, POC Clear Clear Glucose, ur, POC Negative Negative MG/DL Bilirubin, ur, POC Negative Negative, Small, Moderate, Large Ketones, ur, POC Negative Negative Specific Ethel, POC 1.010 1.005 - 1.030 Blood, ur, POC Negative Negative pH, ur, POC 6.0 5.0 - 8.0 Protein, ur, POC Negative Negative Urobilinogen, urine, POC 0.2 0.2 - 1.0 mg/dL Nitrite, ur, POC Negative Negative Leukocytes, ur, POC Negative Negative Lot Number [id number] Urine 03/08/2022 11:4 8 AM FRUIT OR NUT GROWER Carlie Portillo NP POINT OF CARE TEST ORDERABL ES Edited Result - Final documented in this encounter Visit Diagnoses Not on filedocumented in this encounter Administered Medications Inactive Administered Medications - up to 3 most recent administrations Medication Order MAR Action Action Date Dose Rate Site acetaminophen (TYLENOL) tablet 1,000 mg 1,000 mg, oral, Once, On Sun03/08/22 at 1230, For 1 dose Given 03/08/2022 12:06 PM FRUIT OR NUT GROWER 1,000 mg Carrier Fluids for Secondary Infusion - 0.9% Sodium Chloride 30 mL, intravenous, As needed, For priming tubing and/or flushing, Starting on Sun03/08/22 at 1138, L&D Pre-Delivery, 0-250 ml/hr to flush line after IV infusions when no maintenance IV ordered. Infuse 30mL at the same rate as the secondary infusion. Run as primary IV, not intended for KVO. Lactated Ringer's (LR) bolus 1,000 mL 1,000 mL, intravenous, Once, On Sun03/08/22 at 1215, For 1 dose, L&D Pre-Delivery New Bag 03/08/2022 12:07 PM FRUIT OR NUT GROWER 1,000 mL sodium chloride 0.9% flush 0.5-20 mL 0.5-20 mL, intra-catheter, Every 8 hours scheduled, First dose on Sun03/08/22 at 1400, L&D Pre-Delivery, Flush volume based on line type and size. sodium chloride 0.9% flush 0.5-20 mL 0.5-20 mL, intra-catheter, As needed, line care, Starting on Sun03/08/22 at 1138, L&D Pre-Delivery, Flush volume based on line type and size. Flush before and after each use. documented in this encounter Active and Recently Administered Medications Times are shown in FRUIT OR NUT GROWER. Scheduled Medication Order 03/06/2022 03/07/2022 03/08/2022 acetaminophen (TYLENOL) tablet 1,000 mg (COMPLETED) 1,000 mg, oral, Once, On Sun03/08/22 at 1230, For 1 dose 1206 (Given - Provid er: Jane Robles RN) Lactated Ringer's (LR) bolus 1,000 mL (COMPLETED) 1,000 mL, intravenous, Once, On Sun03/08/22 at 1215, For 1 dose, L&D Pre-Delivery 1207 (New Bag - Prov ider: Jane Robles RN) sodium chloride 0.9% flush 0.5-20 mL 0.5-20 mL, intra-catheter, Every 8 hours scheduled, First dose on Sun03/08/22 at 1400, L&D Pre-Delivery, Flush volume based on line type and size. PRN Medication Order 03/06/2022 03/07/2022 03/08/2022 Carrier Fluids for Secondary Infusion - 0.9% Sodium Chloride 30 mL, intravenous, As needed, For priming tubing and/or flushing, Starting on Sun03/08/22 at 1138, L&D Pre-Delivery, 0-250 ml/hr to flush line after IV infusions when no maintenance IV ordered. Infuse 30mL at the same rate as the secondary infusion. Run as primary IV, not intended for KVO. sodium chloride 0.9% flush 0.5-20 mL 0.5-20 mL, intra-catheter, As needed, line care, Starting on Sun03/08/22 at 1138, L&D Pre-Delivery, Flush volume based on line type and size. Flush before and after each use. documented in this encounter Orders Medications Ordered That Cyrus ht Not Have Been Administered Count Last Ordered Date First Ordered Date Carrier Fluids for Secondary Infusion - 0.9% Sodium Chloride 1 03/08/2022 sodium chloride 0.9% flush 0.5-20 mL 2 02/2022 Nursing Count Last Ordered Date First Orde red Date VITAL SIGNS 1 03/08/2022 Discharge Count Last Ordered Date First Orde red Date DISCHARGE PATIENT 1 03/08/2022 documented in this encounter Care Teams Medical Record Assistant Relationship Specialty Start Date End Date Kit Arriola MD [address] [address] PCP - General Emergency Medicine 12/19/18 documented as of this encounter
--- OUTSIDE RECORDS SUMMARY | 2024-02-17 13:56 | XMS_ITS | Encounter Summary ---
Author Organization [facility] Healthcare Address [address] [place] [address] Care Team Providers Care Call Center Trainer Name Role Phone Kit Arriola MD Primary Care Provider [phone] Encounter Details Date Type Department Care Team (Late st Contact Info) Description 05/12/[address] [phone] Ketty Gonzales RN Social History Tobacco Use Types Packs/Day Years [...] on file Legal Sex Female 5:56 PM LUSTER APPLICATOR Gender Identity Female 07/16/2022 10:05 AM CDT Sexual Orientation Straight 07/16/2022 10 :05 AM CDT documented as of this encounter Miscellaneous Notes * Telephone Encounter - Ketty Gonzales RN - 05/12/2022 8:29 AM CDT RN sent pre IOL to pt via [employer]. documented in this encounter Plan of Treatment Not on file documented as of this encounter Visit Diagnoses Not on filedocumented in this encounter Care Teams Call Center Trainer Relationship Specialty Start Date End Date Kit Arriola MD [address] [address] PCP - General Emergency Medicine 12/19/18 documented as of this encounter
--- OUTSIDE RECORDS SUMMARY | 2024-02-17 13:56 | XMS_ITS | Encounter Summary ---
Author Organization [facility] Healthcare Address [address] [place] [address] Care Team Providers Care Associate Data Scientist Name Role Phone Kit Arriola MD Primary Care Provider [phone] Reason for Visit * Reason Onset Date Comments Incoming Call 02/08/2022 Encounter Details Date Type Department Care Team (Late st Contact Info) Description 02/08/[address] [phone] Natali Guzmán, COCO Incoming Call Social History Tobacco Use Types Packs/Day Years [...] on file Legal Sex Female 5:56 PM POWDER COAT PAINTER Gender Identity Female 07/16/2022 10:05 AM CDT Sexual Orientation Straight 07/16/2022 10 :05 AM CDT documented as of this encounter Miscellaneous Notes * Telephone Encounter - Natali Guzmán RN - 02/08/2022 6:13 PM CST Pt is 25.4 wks and calling with c/o vomiting after taking a glucose tolerance test today at 1015. Pt states she has vomited 3-4 times today so far. Has been drinking water and baked chicken and mac&cheese. Pt instructed to continue drinking water and try eating crackers, bananas and other bland foods. Small portions at a time. Pt also c/o having a MIRAMONTES. States she rates her pain at a 5. If she is lying down her MIRAMONTES is more bearable but when she go to get up or go by light her MIRAMONTES becomes worst. Has taken tylenol regular strength X's 2 tabs @ 12 noon and 4pm with no relief. Pt informed that she can come in to the [facility] to be evaluated since she's tried pain med twice with no relief.Pt states she will like to try and stay home and try to eat some of the other foods first because she thinks her MIRAMONTES is from not eating. Pt instructed to call back if vomiting continues or MIRAMONTES is not relieved. Pt verbalizes understanding and states ok. ER COAT PAINTER documented in this encounter Plan of Treatment Not on file documented as of this encounter Visit Diagnoses Not on filedocumented in this encounter Care Teams Associate Data Scientist Relationship Specialty Start Date End Date Kit Arriola MD [address] [address] PCP - General Emergency Medicine 12/19/18 documented as of this encounter
--- OUTSIDE RECORDS SUMMARY | 2024-02-17 13:56 | XMS_ITS | Encounter Summary ---
Author Organization [facility] Healthcare Address [address] [place] [address] Care Team Providers Care Fish Bait Picker Name Role Phone Kit Arriola MD Primary Care Provider [phone] Encounter Details Date Type Department Care Team (Late st Contact Info) Description [address] [phone] Camila Young RN Social History Tobacco Use Types Packs/Day [...] file Legal Sex Female 5:56 PM SUPERVISOR SHIPPING ROOM Gender Identity Female 07/16/2022 10:05 AM CDT Sexual Orientation Straight 07/16/2022 10 :05 AM CDT documented as of this encounter Miscellaneous Notes * Telephone Encounter - Camila Young RN - 2022 5:18 PM SUPERVISOR SHIPPING ROOM Pt called stating that she has been having some BLE swelling with her . Pt denies headache, changes to vision, RUQ pain or swelling in the hands and face. Pt asked what she could do at home for swelling in the feet and ankles. Pt advd that she could try compression socks or elevating her feet when she is resting in order to help improve circulation. Pt endorses good movement and denies LOF or VB. Pt advd to proceed to [facility] if swelling of lower extremities worsens or becomes painful, or becomes accompanied by headache that does not improve with tylenol, visual changes, RUQ pain, or swelling of the face/hands. Pt verbalized understanding. RVISOR SHIPPING ROOM documented in this encounter Plan of Treatment Not on file documented as of this encounter Visit Diagnoses Not on filedocumented in this encounter Care Teams Fish Bait Picker Relationship Specialty Start Date End Date Kit Arriola MD [address] [address] PCP - General Emergency Medicine 12/19/18 documented as of this encounter
--- OUTSIDE RECORDS SUMMARY | 2024-02-17 13:57 | XMS_ITS | Encounter Summary ---
Author Organization [facility] Address [address] [place] [address] Phone Care Team Providers Care Linen Room Supervisor Name Role Phone Kit Arriola MD Primary Care Provider [phone] Reason for Visit * Diagnostic Imaging (Routine) - Closed Specialty Diagnoses / Procedures Referred By Contac t Referred To Contact Diagnoses Supervision of other normal , antepartum Procedures US Ob Under 14 Weeks Janice Jordan MD [address] [place] [address] Phone: tel: fax: [facility] (All Locations) Referral ID Status Reason Start Date Expiration Date Visits Re quested Visits Authorized [id number] Closed 10/12/2021 02/04/2022 1 1 Encounter Details Date Type Department Care Team (Late st Contact Info) Description 10/12/2021 1:30 PM CDT Ancillary Procedure [facility] Obstetrics and Gynecology [address] [place] [address] Outpatient Health 7th Floor [address] [place] [address] Social History Tobacco Use Types Packs/Day Years Used Date Smoking Tobacco: Never Smokeless Tobacco: Never AUDIT-C Answer Date Recorded Q1: How often do you have a drink containing alc ohol? Never 10/12/2021 Average Number of Drinks Not on file 022 Frequency of Binge Drinking Not on file 08/2021 Comments Yes Sex and Gender Information Value Date Recorded Sex Assigned at Not on file Legal Sex Female 5:56 PM DOUGHNUT GLAZIER Gender Identity Female 07/16/2022 10:05 AM CDT Sexual Orientation Straight 07/16/2022 10 :05 AM CDT documented as of this encounter Plan of Treatment Not on file documented as of this encounter Procedures Procedure Name Priority Date/Time Associated Diagnosis Comments US OB UNDER 14 WEEKS Schedule Routine, Read Routine (OP Routine) 10/12/2021 1:27 PM CDT Supervision of other normal , antepartum documented in this encounter Results * US Ob Under 14 Weeks (10/12/2021 1:27 PM CDT) Anatomical Region Laterality Modality Abdomen N/A Ultrasound Study GA Study Date Study YOBANI Working YOBANI (Source) Feta l Weight (Method) 10/12/2021 Result Name Value Comments CRL 2.1 cm 61 Sac Diameter cm Heart Rate 176 bpm Narrative 10/12/2021 2:35 PM CDT Transvaginal ultrasound early Indication: Confirm viability and dating Uterus: normal Single IUP: CRL 2.1 cm, consistent with LMP and IVF dating. FHR: 179 bpm Right ovary:1.39 cm x 1.59 cm, no apparent cysts Left ovary: 2.23 cm x 2.58 cm, no apparent cysts ? Impression: viable IUP Final YOBANI: 05/20/22 us Janice Jordan MD IMG OB US PROCEDURES Final Result documented in this encounter Visit Diagnoses Not on filedocumented in this encounter Care Teams Linen Room Supervisor Relationship Specialty Start Date End Date Kit Arriola MD [address] [place] [address] PCP - General Emergency Medicine 12/19/18 documented as of this encounter
--- OUTSIDE RECORDS SUMMARY | 2024-02-17 13:57 | XMS_ITS | Encounter Summary ---
Author Organization [facility] Healthcare Address [address] [place] [address] Care Team Providers Care Dubbing Machine Operator Name Role Phone Kit Arriola MD Primary Care Provider [phone] Reason for Referral * Diagnostic Imaging (Routine) - Closed Specialty Diagnoses / Procedures Referred By Contac t Referred To Contact Diagnoses Encounter for follow-up ultrasound of anatomy Low lying placenta nos or without hemorrhage, second trimester Procedures US Ob Follow Up Janice Jordan MD [address] [place] [address] Phone: tel: fax: [facility] (All Locations) Referral ID Status Reason Start Date Expiration Date Visits Re quested Visits Authorized [id number] Closed 01/02/2022 02/04/2023 1 99 ON TEACHER * Diagnostic Imaging (Routine) - Closed Specialty Diagnoses / Procedures Referred By Contac t Referred To Contact Diagnoses Encounter for follow-up ultrasound of anatomy Procedures US Ob Limited Janice Jordan MD [facility] [address] Phone: tel: fax: [facility] (All Locations) Referral ID Status Reason Start Date Expiration Date Visits Re quested Visits Authorized [id number] Closed 01/02/2022 02/04/2022 1 99 ON TEACHER * Diagnostic Imaging (Routine) - Closed Specialty Diagnoses / Procedures Referred By Kimberley barrios Referred To Contact Diagnoses Supervision of other normal , antepartum Procedures US Ob 14 Weeks Or Over Janice Jordan MD [address] [place] [address] Phone: tel: fax: [facility] (All Locations) Referral ID Status Reason Start Date Expiration Date Visits Re quested Visits Authorized [id number] Closed 10/12/2021 02/04/2022 1 1 ON TEACHER Reason for Visit * Diagnostic Imaging (Routine) - Closed Specialty Diagnoses / Procedures Referred By Kimberley barrios Referred To Contact Diagnoses Supervision of other normal , antepartum Procedures US Ob 14 Weeks Or Over Janice Jordan MD [address] [place] [address] Phone: tel: fax: [facility] (All Locations) Referral ID Status Reason Start Date Expiration Date Visits Re quested Visits Authorized [id number] Closed 10/12/2021 02/04/2022 1 1 Encounter Details Date Type Department Care Team (Latest Contact Info) Description 01/02/2022 8:45 AM VISION TEACHER - 01/02/2022 10:59 AM VISION TEACHER Hospital Encounter [facility] - Ultrasound [address] [place] [address], 7th Floor, [address] [place] [address] Encounter for follow-up ultrasound of anatomy (Primary Dx); Supervision of other normal , antepartum; Low lying placenta nos or without hemorrhage, [...] on file Legal Sex Female 5:56 PM VISION TEACHER Gender Identity Female 07/16/2022 10:05 AM [...] Priority Date/Time Associated Diagnosis Comments US OB 14 WEEKS OR OVER Schedule Routine, Read Routine (OP Routine) 01/02/2022 8:55 AM VISION TEACHER Supervision of other normal , antepartum documented in this encounter Results * US Ob Follow Up (03/01/2022 11:00 AM VISION TEACHER) Fetus# Fetus1 VIEWPOINT Estimated Weight 1,493 g&grams VIEWPOINT Placenta Details posterior, Previa-no, no placental masses VIEWPOINT Presentation Vertex VIEWPOINT Anatomical Region Laterality Modality Abdomen N/A Ultrasound 03/01/2022 11:0 0 AM VISION TEACHER Impressions 03/01/2022 12:23 PM VISION TEACHER IUP at 28w 4d who presents for [...] volume is normal. us Janice Jordan MD [facility] [place] US PROCEDURES Final Result * US Ob Limited (01/18/2022 9:24 AM VISION TEACHER) Fetus# Fetus1 VIEWPOINT Placenta Details posterior, Previa-no, no placental masses VIEWPOINT Presentation Vertex VIEWPOINT Anatomical Region Laterality Modality Abdomen N/A Ultrasound 01/18/2022 9:26 AM VISION TEACHER Impressions 01/18/2022 10:23 AM VISION TEACHER IUP - 22w 4dThe anomaly screen is completed as above.S/P normal echo.The placenta has retracted from the internal os and is no longer low-lying. Narrative Procedure Note Talha Peralta MD - 01/18/2022 IMPRESSION: IUP - 22w 4dThe anomaly screen is completed as above.S/P normal fetalecho.The placenta has retracted from the internal os and is no longerlow-lying. us Janice Jordan MD [facility] OB US PROCEDURES Final Result * US Ob 14 Weeks Or Over (01/02/2022 8:55 AM VISION TEACHER) Fetus# Fetus1 VIEWPOINT Estimated Weight 374 g&grams VIEWPOINT Placenta Details posterior, low lying VIEWPOINT Presentation Breech VIEWPOINT Anatomical Region Laterality Modality Abdomen N/A Ultrasound 01/02/2022 8:55 AM VISION TEACHER Impressions 01/02/2022 10:45 AM VISION TEACHER Single IUP at 20w 2d for anatomic assessment1. The biometry is appropriate for gestational age.2. No major structural malformations identified within the limits of ultrasound. However, the anatomic assessment is incomplete due to suboptimal imaging of the above noted structures. 3. Transvaginal imaging demonstrates a normal cervical length. 4. Marginal placental cord insertion.5. Concern for low-lying placenta. Placenta measures 1.8 cm from the internal os, however this cannot be confirmed due to lower uterine segment contraction. Narrative Procedure Note Buffy Agudelo MD - 01/02/2022 IMPRESSION: Single IUP at 20w 2d for anatomic assessment1. The biometry isappropriate for gestational age.2. No major structural malformationsidentified within the limits of ultrasound. However, the anatomicassessment is incomplete due to suboptimal imaging of the above notedstructures. 3. Transvaginal imaging demonstrates a normal cervical length.4. Marginal placental cord insertion.5. Concern for low-lying placenta.Placenta measures 1.8 cm from the internal os, however this cannot beconfirmed due to lower uterine segment contraction. us Janice Jordan MD IMG OB US PROCEDURES Final Result documented in this encounter Visit Diagnoses Diagnosis Encounter for follow-up ultrasound of anatomy- Primary Supervision of other normal , antepartum Low lying placenta nos or without hemorrhage, second trimester Encounter for follow-up ultrasound of anatomy Encounter for follow-up ultrasound of anatomy Low lying placenta nos or without hemorrhage, second trimester documented in this encounter Care Teams Dubbing Machine Operator Relationship Specialty Start Date End Date Kit Arriola MD [address] [address] PCP - General Emergency Medicine 12/19/18 documented as of this encounter
--- OUTSIDE RECORDS SUMMARY | 2024-02-17 13:57 | XMS_ITS | Encounter Summary ---
Author Organization [facility] [employer] [facility] Address [address] [place] [address] Phone Care Team Providers Care Customer Service Correspondence Clerk Name Role Phone Kit Arriola MD Primary Care Provider [phone] Reason for Referral * Cardiology (Routine) - Closed Specialty Diagnoses / Procedures Referred By Contac t Referred To Contact Diagnoses resulting from in vitro fertilization, antepartum Procedures Echocardiogram Janice Jordan MD [address] [place] [address] Phone: tel: fax: [facility] (All Locations) Referral ID Status Reason Start Date Expiration Date Visits Re quested Visits Authorized [id number] Closed 10/12/2021 11/11/2022 2 2 * Diagnostic Imaging (Routine) - Closed Specialty Diagnoses / Procedures Referred By Contac t Referred To Contact Diagnoses Supervision of other normal , antepartum Procedures US Ob 14 Weeks Or Over Janice Jordan MD [address] [place] [address] Phone: tel: fax: [facility] (All Locations) Referral ID Status Reason Start Date Expiration Date Visits Re quested Visits Authorized [id number] Closed 10/12/2021 02/04/2022 1 1 * Diagnostic Imaging (Routine) - Closed Specialty Diagnoses / Procedures Referred By Contac t Referred To Contact Diagnoses Supervision of other normal , antepartum Procedures US Ob Under 14 Weeks Janice Jordan MD [address] [facility] [address] [place] [address] Phone: tel: fax: [facility] (All Locations) Referral ID Status Reason Start Date Expiration Date Visits Re quested Visits Authorized [id number] Closed 10/12/2021 02/04/2022 1 1 Reason for Visit * Reason Comments Initial Visit Encounter Details Date Type Department Care Team (Late st Contact Info) Description 10/12/2021 1:15 PM CDT Office Visit [facility] Obstetrics and Gynecology [address] [place] [address] Outpatient Health 7th Floor [address] [place] [id number] [place] [address] [place] [id number] Supervision of other normal , antepartum (Primary Dx); resulting from in vitro fertilization, antepartum Social History Tobacco Use Types Packs/Day Years [...] on file Legal Sex Female 5:56 PM C DEVELOPER Gender Identity Female 07/16/2022 10:05 AM CDT Sexual Orientation Straight 07/16/2022 10 :05 AM CDT documented as of this encounter Last Filed Vital Signs Vital Sign Reading Time Taken Comments Blood Pressure 122/89 10/12/2021 1:49 PM CDT Pulse - - Temperature - - Respiratory Rate - - Oxygen Saturation - - Inhaled Oxygen Concentration - - Weight 84.9 kg (187 lb 3.2 oz) 10/12/2021 1:49 P M CDT Height 165.1 cm (5' 5 ) 10/12/2021 1:49 PM CDT Body Mass Index 31.15 10/12/2021 1:49 PM CDT documented in this encounter Progress Notes * Buffy Mistry RN - 10/12/2021 1:15 PM CDT Met with Mukund Livingston today for initial/first trimester visit teaching. Discussed the practice,safe medications, appropriate diet, exercise/activity, travel, animals and vaccinations. Pt had specific questions that were answered appropriately. Declines genetics, had PGT that showed she was having a boy! Discussed echo. * Janice Jordan MD - 10/12/2021 1:15 PM CDT Initial OB Visit Subjective: Mukund Livingston is a 31 y.o., at 8w4d, based on IVF implantation (with [facility] infertility), who presents for initial visit. Her obstetrical history is significant for history of ectopic x2, and PCOS (previously on metformin) Past history fully reviewed. She reports nausea and vomiting. She has not yet started medication for these symptoms. No other concerns today. Menstrual History: Menarche Age: 15 years Patient's last menstrual period was 08/13/2021. Period Cycle (Days): 28 Period Duration (Days): 5 Period Pattern: Regular Menstrual Flow: Moderate Dysmenorrhea: None Sexual History: Sexual History Gender of sexual partners: Men Sexually Transmitted Infection History: None OB History 3 Para 1 Term 1 AB 1 Living 1 SAB IAB Ectopic 1 Multiple Live Births 1 # Outcome Date GA Labor/2nd Weight Sex Delivery Anes PTL Lv A1 A5 1 Term 2015 F Vag-Spont Living 2 Ectopic 2018 3 Current Past medical, surgical, and [employer]IST history fully reviewed. ROS negative except as noted in HPI. Objective: BP 122/89 Ht 165.1 cm (5' 5 ) Wt 187 lb 3.2 oz (84.9 kg) LMP 08/13/2021 BMI 31.15 kg/m?? Physical OB Exam: Last filed by Janice Jordan MD on 10/13/2021 1:54 PM General Physical Exam HEENT: normal Skin: normal Extremities: normal Neurological: normal Abdomen: normal Pelvic Exam Vulva: normal Vagina: normal Cervix: normal See flow sheet for gestation -specific examination and vitals. See Episode Report for physical of record. Ultrasound findings: Transvaginal ultrasound early Indication: Confirm viability and dating Uterus: normal Single IUP: CRL 2.1 cm, consistent with LMP and IVF dating. FHR: 179 bpm Right ovary:1.39 cm x 1.59 cm, no apparent cysts Left ovary: 2.23 cm x 2.58 cm, no apparent cysts Impression: viable IUP Final YOBANI: 05/20/22 Assessment: Patient is a 31 y.o., at 8w5d, with a potts confirmed on U/S today. Problem list reviewed and updated: YOBANI 2022 Problems (from 10/05/21 to present) Problem Noted Resolved Supervision of other normal , antepartum 10/05/2021 by Buffy Mistry, RN No Priority: High Overview Addendum 10/13/2021 1:50 PM by Janice Jordan MD -IVF with [facility] fertility, need records, requested 10/12 -needs echo 22-26wks, ordered -weekly NSTs @ 36wks -h/o R sided ectopic in 2018 and R salpingectomy -h/o PCOS, previously on metformin [x] Initial BMI: 31.15 [] Labs: Ordered [x] Genetic Screening: PGT completed, carrier testing negative [x] Baby ASA: yes, at 12 weeks (IVF & BMI) [] 1hr GCT at 24-28wks: [] Tdap (27-36wks): [] Flu Shot: [x] COVID vaccine: vaccinated & boosted [] Rhogam (if Rh neg): [] GBS at 36 wks: [] [] control method: [] 39 weeks discussion of IOL vs. Expectant management: [] Mode of delivery: [] For C/S bottle of CHG 4% and hand out provided @ 36wks Teaching: [x] 1st visit [] 28-30 week [] 36 week Plan: vitamin with DHA discussed Labs ordered Discussed genetic testing - patient underwent preimplantation genetic testing that was normal Role of ultrasound in discussed. survey ordered. echo ordered for 22-26 wks. Patient to meet with OB nurse educator to review exercise, diet, medications, precautions. Pap test collected today. Additional concerns: Recommended doxylamine/vitamin B6 for nausea. Encouraged patient to reach out if she does not have adequate improvement in symptoms. Follow up in 4 weeks. [facility] precautions reviewed. Janice Jordan MD 10/12/2021 documented in this encounter Plan of Treatment Not on file documented as of this encounter Procedures Procedure Name Priority Date/Time Associated Diagnosis Comments N. GONORRHOEAE/C. TRACHOMATIS AMPLIFICATION Routine 10/12/2021 2:47 PM CDT Supervision of other normal , antepartum URINE CULTURE Routine 10/12/2021 2:46 PM CDT Supervision of other normal , antepartum PAP WITH REFLEX TO HIGH RISK HPV Routine 10/12/2021 2:41 PM CDT Supervision of other normal , antepartum OB UNDER 14 WEEKS Schedule Routine, Read Routine (OP Routine) 10/12/2021 1:27 PM CDT Supervision of other normal , antepartum documented in this encounter Results * Echocardiogram (01/02/2022 11:49 AM C DEVELOPER) Anatomical Region Laterality Modality Ultrasound 01/02/2022 11:2 0 AM C DEVELOPER Narrative 01/02/2022 11:57 AM C DEVELOPER ?[facility] ? Echo Report ?[address] [facility], [place], [place] ??[address] ?[phone] ? Patient Name: MUKUND LIVINGSTON ? Study Type: Echo ? Patient : 1990 ? Exam Date: ??01/02/2022 ? Age: ?31Y ? Exam Time: ??11:20:00 AM ? Referring MD: DIYA GORMAN ? Height: ? 165.1cm ?Weight: ? 80.6kg ? BSA: ?1.88 m2 ?Sex: FEMALE ? BP: ? 126/85 ? Credit Union Examiner: Neeta Serrano ? Pat. Stat.: Outpatient ? Account:[id number] ? Indications for Study:IVF ? Procedures: COLORFLOW, DOPPLER COMPLETE, , COMPLETE SUMMARY: Initial echocardiogram (2D, color, Doppler) performed on a 20.2 week single fetus YOBANI (05/20/2022). Study quality is good. The fetus is in the oblique position. Balanced four chamber view with qualitatively normal systolic function. There is levocardia noted. Normally related great vessels. No inflow or outflow tract obstruction. No obvious VSD. No valvar regurgitation. Unobstructed aortic and ductal arches. Left aortic arch. At least 2 pulmonary veins drain normally to the LA. Normal systemic venous return. Normal heart rate, 140 bpm with 1:1 AV conduction. No pericardial effusion. Three vessel cord noted, with normal Doppler pattern. Normal ductus venosus Doppler. Atria: Situs: Solitus. RA Size: Normal. ??LA Size: Normal. Septum: PFO. Defect sz. Moderate ??Shunt: Sepct-pv-Sqoy ?? Annular Dimensions: ??TV: ??MV: ??LVID: ??RVID: ?Pulm Valve: ??Ao Valve: ??IVS: Ventricles: D-looped ??LV size: Normal. LV function:Normal. Rv size: Normal. ??RV function: Normal. IVS: Motion: ??Normal. ??Defect Type/Size: None./None. ??Shunt: None. Grt Vessls: Normal. Aortic Root: Normal. MPA: Normal LPA: Normal. RPA: Normal. ?? Aortic Arch: Unobstructed Ductus Arteriosus: ?80 ?? cm/sec Systm Veins: SVC: Normal. IVC: Normal. Pulm Veins: Visualized: 2/4. Connections: Normal. Pericardium: ??Normal Mitral Valve: Biphasic Structure: Normal. Stenosis: No. Regurgitation: No. Tricuspid Valve: Biphasic Structure: Normal. Stenosis:No. Regurgitation: No. Pulmonary Valve: Flow velocity ?? 53 ??cm/sec ??Structure: Normal. Stenosis: No. Regurgitation: No. Aortic Valve: Flow velocity ?? 74 ??cm/sec ??Structure: Normal. Stenosis: No. Regurgitation: No. Pulsatility index: Ductal Arch: 1.99 Umb Artery: 1.26 MCA: cardiac rhythm: 1:1 AV conduction Rate: ??140 ?? bpm FINDINGS: Signed 01/02/2022 11:57 AM Alireza Casiano MD Procedure Note Alireza Casiano MD - 01/02/2022 [facility] Echo Report [address] [address] Patient Name: MUKUND LIVINGSTON Study Type: Echo Patient : 1990 Exam Date: 01/02/2022 Age: 31Y Exam Time: 11:20:00 AM Referring MD: DIYA GORMAN Height: 165.1cm Weight: 80.6kg BSA: 1.88 m2 Sex: FEMALE BP: 126/85 Credit Union Examiner: Neeta Rodriguez. Stat.: Outpatient Account:[id number] Indications for Study:IVF Procedures: COLORFLOW, DOPPLER COMPLETE, , COMPLETE SUMMARY: Initial echocardiogram (2D, color, Doppler) performed on a 20.2 week single fetus YOBANI (05/20/2022). Study quality is good. The fetus is in the oblique position. Balanced four chamber view with qualitatively normal systolic function. There is levocardia noted. Normally related great vessels. No inflow or outflow tract obstruction. No obvious VSD. No valvar regurgitation. Unobstructed aortic and ductal arches. Left aortic arch. At least 2 pulmonary veins drain normally to the LA. Normal systemic venous return. Normal heart rate, 140 bpm with 1:1 AV conduction. No pericardial effusion. Three vessel cord noted, with normal Doppler pattern. Normal ductus venosus Doppler. Atria: Situs: Solitus. RA Size: Normal. LA Size: Normal. Septum: PFO. Defect sz. Moderate Shunt: Zjabl-cw-Oswo Annular Dimensions: TV: MV: LVID: RVID: Pulm Valve: Ao Valve: IVS: Ventricles: D-looped LV size: Normal. LV function:Normal. Rv size: Normal. RV function: Normal. IVS: Motion: Normal. Defect Type/Size: None./None. Shunt: None. Grt Vessls: Normal. Aortic Root: Normal. MPA: Normal LPA: Normal. RPA: Normal. Aortic Arch: Unobstructed Ductus Arteriosus: 80 cm/sec Systm Veins: SVC: Normal. IVC: Normal. Pulm Veins: Visualized: 2/4. Connections: Normal. Pericardium: Normal Mitral Valve: Biphasic Structure: Normal. Stenosis: No. Regurgitation: No. Tricuspid Valve: Biphasic Structure: Normal. Stenosis:No. Regurgitation: No. Pulmonary Valve: Flow velocity 53 cm/sec Structure: Normal. Stenosis: No. Regurgitation: No. Aortic Valve: Flow velocity 74 cm/sec Structure: Normal. Stenosis: No. Regurgitation: No. Pulsatility index: Ductal Arch: 1.99 Umb Artery: 1.26 MCA: cardiac rhythm: 1:1 AV conduction Rate: 140 bpm FINDINGS: Signed 01/02/2022 11:57 AM Alireza Casiano MD us Janice Jordan MD CV ECHO PROCEDURES Fi nal Result * US Ob 14 Weeks Or Over (01/02/2022 8:55 AM C DEVELOPER) Fetus# Fetus1 VIEWPOINT Estimated Weight 374 g&grams VIEWPOINT Placenta Details posterior, low lying VIEWPOINT Presentation Breech VIEWPOINT Anatomical Region Laterality Modality Abdomen N/A Ultrasound 01/02/2022 8:55 AM C DEVELOPER Impressions 01/02/2022 10:45 AM C DEVELOPER Single IUP at 20w 2d for anatomic [...] MD IMG OB US PROCEDURES Final Result * N. gonorrhoeae/C. trachomatis Amplification Vaginal (10/12/2021 2:47 PM CDT) C. trachomatis RNA NOT DETECTED NOT DETECTED [facility] N. gonorrhoeae RNA NOT DETECTED NOT DETECTED [facility] Comment [facility] Comment: The analytical performance characteristics of this assay, when used to test SurePath(TM) specimens have been determined by [facility]. The modifications have not been cleared or approved by the FDA. This assay has been validated pursuant to the CLIA regulations and is used for clinical purposes. For additional information, please refer to https://education.[employer].Contacts+/faq/ATH584 (This link is being provided for information/ educational purposes only.) Vaginal (None) 10/12/2021 2: 47 PM CDT 10/13/2021 8:46 AM CDT Janice Jordan MD LAB MICROBIOLOGY - NERAL ORDERABLES Final Result Performing Organization Address City/[facility]/ZIP Co de Phone Number [facility] [address] [place] [address] * (ABNORMAL) Urine culture Urine, clean voided (10/12/2021 2:46 PM CDT) Urine culture (A) [facility] Comment: ??CULTURE, URINE, ROUTINE ?Micro Number: ?[id number] ??Test Status: ? Final ??Specimen Source: ?? Not given ??Specimen Quality: ??Adequate ??Result: ?10,000-49,000 CFU/mL of ? Coagulase negative staphylococcus, not S. ? saprophyticus ? Susceptibility testing not routinely ? performed on this isolate. Urine, clean voided 10/12/2021 2:46 PM CDT 10/13/2021 1:59 AM CDT us Janice Jordan MD LAB MICROBIOLOGY - GE NERAL ORDERABLES Final Result Performing Organization Address City/[facility]/ZIP Co de Phone Number [facility] [address] [place] [address] * Pap with reflex to High Risk HPV (10/12/2021 2:41 PM CDT) CLINICAL INFORMATION: Routine exam [facility] [place]MP 08/13/[address] [facility] [place] Previous Pap INFORMATION NOT PROVIDED [facility] [place] Prev. Bx INFORMATION NOT PROVIDED [facility] [place] SOURCE: Cervix, Endocervix [facility] [place] Pap, specimen adequacy Satisfactory for evaluation. Endocervical/claudio sformation zone component present. [facility] [employer] [facility] HPV interp Negative for intraepithelial lesion or malignancy. [facility] [employer] [facility] COMMENTS This Pap test has been evaluated with computer assisted technology. [facility] [place] Hand Cell Tuber DXP, CT(ASCP) CT Screening Location: [place] [address] [place] [address] [facility] [place] Comment [facility] [place] Comment: EXPLANATORY NOTE: The Pap is a [...] 2:41 PM CDT 10/13/2021 12:08 AM CDT us Janice Jordan MD LAB CYTOLOGY ORDERABL ES Final Result [facility] [address] [place] [address] * US Ob Under 14 Weeks (10/12/2021 [...] Supervision of other normal , antepartum- Primary resulting from in vitro fertilization, antepartum Encounter for follow-up ultrasound of anatomy- Primary Supervision of other normal , antepartum Low lying placenta nos or without hemorrhage, second trimester resulting from in vitro fertilization, antepartum documented in this encounter Historical Medications * This list may reflect changes made after this encounter. BD Luer-Demi Syringe 3 mL 18 x 1 1/2 syringe as directed 08/31/2021 02 2 BD Luer-Demi Syringe 3 mL 22 x 1 1/2 syringe USE WITH PROGESTERONE INJECTIONS 09/15/2021 2 progesterone 50 mg/mL injection 09/15/2021 2 PrePlus 27 mg iron- 1 mg tablet 07/18/2021 3 estradioL (ESTRACE) 2 mg tablet 10/05/2021 2 folic acid (FOLVITE) 1 mg tablet 09/24/2021 3 added in this encounter Care Teams Customer Service Correspondence Clerk Relationship Specialty Start Date End Date Kit Arriola MD [address] [address] PCP - General Emergency Medicine 12/19/18 documented as of this encounter
--- OUTSIDE RECORDS SUMMARY | 2024-02-17 13:57 | XMS_ITS | Encounter Summary ---
Author Organization [facility] Address [address] [place] [address] Phone Care Team Providers Care Shirt Operator Name Role Phone Kit Arriola MD Primary Care Provider [phone] Reason for Visit * Reason Comments Routine Visit Encounter Details Date Type Department Care Team (Late st Contact Info) Description 12/14/2021 9:30 AM BEHAVIORAL HEALTH CASE MANAGER Office Visit [facility] Obstetrics and Gyne[facility] [address] [facility] 7th [address] [place] [address] Nanci Jolly NP [address] [address] Supervision of other normal , antepartum [...] on file Legal Sex Female 5:56 PM BEHAVIORAL HEALTH CASE MANAGER Gender Identity Female 07/16/2022 10:05 AM CDT Sexual Orientation Straight 07/16/2022 10 :05 AM CDT documented as of this encounter Last Filed Vital Signs Vital Sign Reading Time Taken Comments Blood Pressure 124/89 12/14/2021 9:51 AM BEHAVIORAL HEALTH CASE MANAGER Pulse - - Temperature - - Respiratory Rate - - Oxygen Saturation - - Inhaled Oxygen Concentration - - Weight 79.8 kg (176 lb) 12/14/2021 9:51 AM BEHAVIORAL HEALTH CASE MANAGER Height 165.1 cm (5' 5 ) 12/14/2021 9:51 AM BEHAVIORAL HEALTH CASE MANAGER Body Mass Index 29.29 12/14/2021 9:51 AM BEHAVIORAL HEALTH CASE MANAGER documented in this encounter Progress Notes * Nanci Jolly NP - 12/14/2021 9:30 AM CST ARCHIE - Denies lof,bleeding and or cramping - no complaints - notes FM RTC in 3 weeks Neli Jolly APRN, NILSON-BC VIORAL HEALTH CASE MANAGER documented in this encounter Plan of Treatment Not on file documented as of this encounter Visit Diagnoses Diagnosis Supervision of other normal , antepartum- Primary documented in this encounter Care Teams Shirt Operator Relationship Specialty Start Date End Date Kit Arriola MD [address] [address] PCP - General Emergency Medicine 12/19/18 documented as of this encounter
--- OUTSIDE RECORDS SUMMARY | 2024-02-17 13:57 | XMS_ITS | Encounter Summary ---
Author Organization [facility] Address [address] [place] [address] Care Team Providers Care Customer Experience Strategist Name Role Phone Kit Arriola MD Primary Care Provider [phone] Encounter Details Date Type Department Care Team (Late st Contact Info) Description 03/30/2020 8:40 PM INSPECTOR LINE - 03/30/2020 8:54 PM INSPECTOR LINE Emergency [facility] Emergency Department [address] [place] [address] Unknown, Rina Maldonado, CRESENCIO [facility] [facility] [facility] [place], [place] [id number] Discharge Disposition: Discharge to home or self care Social History Tobacco Use Types Packs/Day Years Used Date Smoking Tobacco: Never Assessed Comments Unknown Sex and Gender Information Value Date Recorded Sex Assigned at Not on file Legal Sex Female 5:56 PM INSPECTOR LINE Gender Identity Female 07/16/2022 10:05 AM CDT Sexual Orientation Straight 07/16/2022 10 :05 AM CDT documented as of this encounter Last Filed Vital Signs Vital Sign Reading Time Taken Comments Blood Pressure 134/85 03/30/2020 8:41 PM INSPECTOR LINE Pulse 93 03/30/2020 8:41 PM INSPECTOR LINE Temperature 37.2 ??C (99 ??F) 03/30/2020 8:41 PM INSPECTOR LINE Respiratory Rate - - Oxygen Saturation 99% 03/30/2020 8:41 PM INSPECTOR LINE Inhaled Oxygen Concentration - - Weight 71.8 kg (158 lb 4.7 oz) 03/30/2020 8:41 P M INSPECTOR LINE Height 165.1 cm (5' 5 ) 03/30/2020 8:41 PM INSPECTOR LINE Body Mass Index 26.34 03/30/2020 8:41 PM INSPECTOR LINE documented in this encounter Discharge Disposition Disposition Code Departure Means Destination Discharge to home or self care documented in this encounter Plan of Treatment Not on file documented as of this encounter Procedures Procedure Name Priority Date/Time Associated Diagnosis Comments SCAN - LABS 03/31/2020 12:00 AM INSPECTOR LINE documented in this encounter Results * SCAN - LABS (03/31/2020 12:00 AM INSPECTOR LINE) Narrative 03/31/2020 12:00 AM INSPECTOR LINE Ordered by an unspecified provider. us Historical Provider Final Res ult documented in this encounter Visit Diagnoses Not on filedocumented in this encounter Care Teams Customer Experience Strategist Relationship Specialty Start Date End Date Kit Arriola MD [address] [address] PCP - General Emergency Medicine 12/19/18 documented as of this encounter
--- OUTSIDE RECORDS SUMMARY | 2024-02-17 13:57 | XMS_ITS | Encounter Summary ---
Author Organization [facility] Address [address] [place] [address] Phone Care Team Providers Care Buildings Painter Name Role Phone Kit Arriola MD Primary Care Provider [phone] Reason for Visit * Consultation (Routine) - Closed Specialty Diagnoses / Procedures Referred By Contac t Referred To Contact Obstetrics and Gynecology Diagnoses , unspecified gestational age Noelle Hartman MD [address] [facility] [address] [place] [address] Phone: tel: fax: [facility] (All Locations) Referral ID Status Reason Start Date Expiration Date V isits Requested Visits Authorized [id number] Closed Specialty Services Required 10/13/2021 02/04/2022 99 99 Encounter Details Date Type Department Care Team (Late st Contact Info) Description 01/02/2022 9:45 AM CLOTH NEUTRALIZER Office Visit [facility] Obstetrics and Gynecology [address] [facility] 7th Floor [address] [place] [address] Nanci Jolly NP [address] [facility] [address] [place] [address] , unspecified gestational age (Primary Dx) Social History Tobacco Use Types [...] on file Legal Sex Female 5:56 PM CLOTH NEUTRALIZER Gender Identity Female 07/16/2022 10:05 AM CDT Sexual Orientation Straight 07/16/2022 10 :05 AM CDT documented as of this encounter Last Filed Vital Signs Vital Sign Reading Time Taken Comments Blood Pressure 126/85 01/02/2022 10:41 AM CLOTH NEUTRALIZER Pulse - - Temperature - - Respiratory Rate - - Oxygen Saturation - - Inhaled Oxygen Concentration - - Weight 80.6 kg (177 lb 9.6 oz) 01/02/2022 10:41 AM CLOTH NEUTRALIZER Height - - Body Mass Index 29.55 12/14/2021 9:51 AM CLOTH NEUTRALIZER documented in this encounter Progress Notes * Nanci Jolly NP - 01/02/2022 9:45 AM CST ARCHIE - Denies lof,bleeding and or cramping - Reports +FM - anatomy US today efw 374g (70%), fhr 145, +movment visualized, breech, posterior low lying placenta previa and marginal cord insertion. Ut/adnexa nml, cl 52.9mm. Cardiac and facial views incompleteand will reassess in 2 weeks. Will reassess placenta and growth in 8 weeks, ordered and scheduled. Reviewed pelvic rest and bleeding precautions with pt and partner, both stated understanding. - echo today after US and visit RTC in 4 weeks Neli Jolly APRN, NILSON-BC Cosigned by Janice Jordan MD at 01/02/2022 12:27 PM CLOTH NEUTRALIZER H NEUTRALIZER H NEUTRALIZER H NEUTRALIZER documented in this encounter Plan of Treatment Not on file documented as of this encounter Visit Diagnoses Diagnosis , unspecified gestational age- Primary documented in this encounter Discontinued Medications Medication Sig Discontinue Reason Start Date End Da te BD Luer-Demi Syringe 3 mL 18 x 1 1/2 syringe as directed Therapy completed 08/31/2021 01/02/2022 BD Luer-Demi Syringe 3 mL 22 x 1 1/2 syringe USE WITH PROGESTERONE INJECTIONS Therapy completed 09/15/2021 01/02/2022 documented as of this encounter Orders Outpatient Referral Count Last Ordered Date Fir st Ordered Date AMB REFERRAL TO OB-SAWMILLING OPERATOR 1 01/02/2022 documented in this encounter Care Teams Buildings Painter Relationship Specialty Start Date End Date Kit Arriola MD [address] [address] PCP - General Emergency Medicine 12/19/18 documented as of this encounter
--- OUTSIDE RECORDS SUMMARY | 2024-02-17 13:57 | XMS_ITS | Encounter Summary ---
Author Organization [facility] Healthcare Address [address] [place] [address] Care Team Providers Care Speech Lang Path Name Role Phone Kit Arriola MD Primary Care Provider [phone] Reason for Visit * Reason Comments Nausea Abdominal Pain Encounter Details Date Type Department Care Team (Latest Contact Info) Description 11/21/2021 11:53 AM CDT - 11/21/2021 5:33 PM CDT Hospital Encounter [address] [phone] Beth Damian MD [address] [facility] [id number] [place] [address] Discharge Disposition: Discharge to home or self [...] on file Legal Sex Female 5:56 PM 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 MANAGER Gender Identity Female 07/16/2022 10:05 AM CDT Sexual Orientation Straight 07/16/2022 10 :05 AM CDT documented as of this encounter Last Filed Vital Signs Vital Sign Reading Time Taken Comments Blood Pressure 131/85 11/21/2021 12:00 PM CDT Pulse 117 11/21/2021 12:00 PM CDT Temperature 37.2 ??C (99 ??F) 11/21/2021 12: 00 PM CDT Respiratory Rate 18 11/21/2021 12:0 0 PM CDT Oxygen Saturation 97% 11/21/2021 12: 00 PM CDT Inhaled Oxygen Concentration - - Weight 78.4 kg (172 lb 14.4 oz) 022 12:00 PM CDT Height 165.1 cm (5' 5 ) 11/21/2021 12:0 0 PM CDT Body Mass Index 28.77 11/21/2021 12:00 PM CDT documented in this encounter Discharge Instructions * Attachments The following attachments cannot be sent through Care Everywhere. * at 11 to 14 Weeks (Discharge Care) (Eritrean) documented in this encounter Medications at Time of Discharge BD Luer-Demi Syringe 3 mL 18 x 1 1/2 syringe as directed 08/31/2021 02 2 BD Luer-Demi Syringe 3 mL 22 x 1 1/2 syringe USE WITH PROGESTERONE INJECTIONS 09/15/2021 2 folic acid (FOLVITE) 1 mg tablet 09/24/2021 3 ondansetron (ZOFRAN) 4 mg tablet Take 1 tablet (4 mg total) by mouth every 8 (eight) hours as needed for nausea or vomiting 20 tablet 3 11/04/2021 3 PrePlus 27 mg iron- 1 mg tablet 07/18/2021 3 prochlorperazine (COMPAZINE) 10 mg tablet Take 1 tablet (10 mg total) by mouth every 8 (eight) hours as needed for nausea or vomiting 30 tablet 1 11/21/2021 3 documented as of this encounter Discharge Disposition Disposition Code Departure Means Destination Discharge to home or self care documented in this encounter H&P Notes * Aura Galeas NP - 11/21/2021 2:40 PM CDT Obstetrics H&P Chief Complaint: NV Estimated Date of Delivery: 05/20/22 Provider: [facility] HPI: Roaxna Briseno is a 31 y.o. female at 14w2d gestation, dated by L= presets with worsening NV. She reports being unable to tolerate PO for several days. She endorses a slight MIRAMONTES. No other comlaints Her is complicated by IVF , h/o R sided ectopic with salpingectomy, h/o PCOS on metformin Patient Denies: [x] Contractions [x] Shortness of Breath [] Nausea/Vomitting [x] Vaginal Bleeding [x] Headache [x] Abdominal Pain [x] Leaking of Fluid [x] Visual changes [x] Decreased Movement OB History Para Term AB Living 3 1 1 0 1 1 SAB IAB Ectopic Multiple Live Births 0 0 1 0 1 # Outcome Date GA Lbr Rajeev/2nd Weight Sex Delivery Anes PTL Lv 3 Current 2 Ectopic 2018 1 Term 2014 F Vag-Spont BELEM Past Medical History: Diagnosis Date History of [...] Binge Drinking: Not on file Support System: Not addressed Safe at home: Yes family history is not on file. Family history of bleeding or clotting disorders: No Family history of defects, genetic disorders, or developmental delay: No Allergies Allergen Reactions Latex Hives Hives Morphine Hives and Itching Itching Vancomycin Hives Itching Tramadol Itching HOME MEDICATIONS : BD Luer-Demi Syringe 3 mL 18 x 1 1/2 syringe BD Luer-Demi Syringe 3 mL 22 x 1 1/2 syringe estradioL (ESTRACE) 2 mg tablet folic acid (FOLVITE) 1 mg tablet naproxen (NAPROSYN) 500 mg tablet ondansetron (ZOFRAN) 4 mg tablet PrePlus 27 mg iron- 1 mg tablet prochlorperazine (COMPAZINE) 10 mg tablet progesterone 50 mg/mL injection Review of Sys: Negative except per HPI Vitals: Temp: [37.2 ??C (99 ??F)] 37.2 ??C (99 ??F) Pulse: [117] 117 Resp: [18] 18 BP: (131)/(85) 131/85 Physical Exam: General: NAD, mood appropriate Cardiovascular: Regular rate and rhythm Pulmonary: Clear to ausculation bilaterally Abdomen: soft nontender Extremities: Warm and well perfused Speculum Exam: deferred Cervix: / / deferred Monitoring: + Dopptones Labs: Lab Results Component Value Date ABORH A Positive 11/21/2021 SCRIBEDABORH A+ 11/03/2021 IDCOOMB Negative 11/21/2021 SCRINDANTIGL negative 11/03/2021 [id number] NON-REACTIVE 11/03/2021 LABRPR NON-REACTIVE 11/03/2021 RUBELIGG 3.73 11/03/2021 HEPBSAG NON-REACTIVE 11/03/2021 VZVIGG 873.50 11/03/2021 Assessment and Plan Roxana Briseno is a 31 y.o. female at 14w2d who presented with NV Nausea/vomiting: -Resolved with antiemetics, and IVF -ABD benign - initially large ketones on urine with improvement -CBC, CMP, unremarkable - tolerating PO -Encouraged small frequent meals and PO fluids. -Prescriptions given for Compazine and Zofran. reviewed the importance of a scheduled medication regimen. Small frequent meals and encouraged unisom and B6 - + dopptones on BSUS Patient to continue taking medications as prescribed, follow up with [facility] Strict return precautions given. Patient had no further questions, verbalized understanding of discharge plan/instructions and was DCd home in Stable condition. Plan discussed with Dr. Rickie Galeas NP 11/21/21 Cosigned by Beth Damian MD at 11/21/2021 5:46 PM CDT Associated attestation - Beth Damian MD - 11/21/2021 5:46 PM CDT The CLINICAL PRACTICE CONSULTANT saw and examined the patient, we discussed their findings, and I am in agreement with the plan based on the discussion with the resident/fellow. I did not personally examine the patient. documented in this encounter Nursing Notes * Angeli Henry RN - 11/21/2021 5:33 PM CDT Patient discharged to home with [facility] precautions and follow up instructions. documented in this encounter Plan of Treatment Not on file documented as of this encounter Procedures Procedure Name Priority Date/Time Associated Diagnosis Comments POCT URINALYSIS DIPSTICK Routine 11/21/2021 4:16 PM CDT POCT URINALYSIS DIPSTICK Routine 11/21/2021 3:02 PM CDT B CHECK SAMPLE STAT 11/21/2021 1:41 PM CDT EGFR STAT 11/21/2021 12:24 PM CDT CBC WITHOUT DIFFERENTIAL STAT 11/21/2021 12:24 PM CDT HC ANTIBODY SCREEN RBC STAT 12:24 PM CDT VITAMIN B1 Routine 11/21/2021 12:24 PM CDT PHOSPHORUS Routine 11/21/2021 12:24 PM CDT MAGNESIUM Routine 11/21/2021 12:24 PM CDT COMPREHENSIVE METABOLIC PANEL STAT 11/21/2021 12:24 PM CDT POCT URINALYSIS DIPSTICK Routine 11/21/2021 11:58 AM CDT documented in this encounter Results * (ABNORMAL) POCT urinalysis dipstick (11/21/2021 4:16 PM CDT) Color, Urine, POC Anaid Clarity, ur, POC Clear Clear Glucose, ur, POC Negative Negative MG/DL Bilirubin, ur, POC Negative Negative, Small, Moderate, Large Ketones, ur, POC Large(A) Negative Specific [place], POC 1.010 1.005 - 1.030 Blood, ur, POC Negative Negative pH, ur, POC 7.0 5.0 - 8.0 Protein, ur, POC Negative Negative Urobilinogen, urine, POC 0.2 0.2 - 1.0 mg/dL Nitrite, ur, POC Negative Negative Leukocytes, ur, POC Negative Negative Lot Number [id number] Urine 11/21/2021 4:16 PM CDT Aura Galeas NP POINT OF CARE TEST ORDER DOROTEO Final Result * (ABNORMAL) POCT urinalysis dipstick (11/21/2021 3:02 PM CDT) Color, Urine, POC Anaid Clarity, ur, POC Clear Clear Glucose, ur, POC Negative Negative MG/DL Bilirubin, ur, POC Negative Negative, Small, Moderate, Large Ketones, ur, POC Large(A) Negative Specific [place], POC 1.015 1.005 - 1.030 Blood, ur, POC Negative Negative pH, ur, POC 7.0 5.0 - 8.0 Protein, ur, POC 1+(A) Negative Urobilinogen, urine, POC 0.2 0.2 - 1.0 mg/dL Nitrite, ur, POC Negative Negative Leukocytes, ur, POC Negative Negative Lot Number [id number] Urine 11/21/2021 3:02 PM CDT Aura Galeas NP POINT OF CARE TEST ORDER DOROTEO Final Result * Check Sample (11/21/2021 1:41 PM CDT) ABO Rh A Positive [facility] HC[facility] OTHER 11/21/2021 1:41 PM CDT 11/21/2021 1:52 PM CDT us Beth Damian MD LAB BLOOD ORDE KE Final Result Performing Organization Address City/State/RUST Co de Phone Number [facility] Department [place] [address] * eGFR (11/21/2021 12:24 PM CDT) eGFR >90 90 - 130 mL/min/1. 73 m2 [facility] Comment: Interpretive Data Reference Interval Normal [...] interpretive data was last reviewed 2020. Blood 11/21/2021 12:2 4 PM CDT 11/21/2021 12:42 PM CDT us Aura Galeas NP LAB BLOOD ORDERABLES Fin al Result Performing Organization Address City/State/[facility] de Phone Number [facility] [place] [address] * Vitamin B1 (11/21/2021 12:24 PM CDT) Thiamine (Vit B1) 73 70 - 180 nmol/L [facility] Comment: ADDITIONAL INFORMATION This test was developed and its performance characteristics determined by [facility] in a manner consistent with CLIA requirements. This test has not been cleared or approved by the U.S. Food and Drug Administration. Test Performed by: [facility] [address] [place] [address] Grinder Machine Setter: Chase Beasley M.D. Ph.D.; CLIA# [id number] Blood 11/21/2021 12:2 4 PM CDT 11/21/2021 1:13 PM CDT Aura Galeas NP LAB BLOOD ORDERABLES Fin al Result Performing Organization Address [facility] [place] [address] * Type and screen (11/21/2021 12:24 PM CDT) Pathologist [facility] ABO Rh A Positive [facility] Joanne, indirect Negative [facility] Blood 11/21/2021 12:2 4 PM CDT 11/21/2021 12:48 PM CDT Narrative [facility] - 11/21/2021 1:55 PM CDT Has the patient had Daratumumab or Isatuximab in the past 6 months?->Unknown Aura Galeas NP LAB BLOOD BANK TEST ORDE RABLES Final Result Performing Organization Address [facility] de Phone [place] [address] * Phosphorus (11/21/2021 12:24 PM CDT) [facility] Phosphorus, pl 3.0 2.3 - 4.5 mg/dL [facility] Blood 11/21/2021 12:2 4 PM CDT 11/21/2021 12:42 PM CDT Aura Galeas CLINICAL PRACTICE CONSULTANT LAB BLOOD ORDERABLES Fin al Result Performing Organization Address City/[facility]/[place] [address] * Magnesium (11/21/2021 12:24 PM CDT) [facility] Magnesium 1.8 1.4 - 2.5 mg/dL [facility] Blood 11/21/2021 12:2 4 PM CDT 11/21/2021 12:42 PM CDT Aura Galeas CLINICAL PRACTICE CONSULTANT LAB BLOOD ORDERABLES Fin al Result Performing Organization Address [facility] de Phone Number [facility] [place] [address] * (ABNORMAL) Comprehensive metabolic panel (11/21/2021 12:24 PM CDT) [facility] Sodium 136 135 - 145 mmol/L [facility] Potassium, pl 3.5 3.3 - 4.9 mmol/L [facility] Chloride 100 97 - 110 mmol/L [facility] CO2 25 22 - 32 mmol/L [facility] Anion gap 11 2 - 15 mmol/L [facility] BUN 9 8 - 25 mg/dL [facility] Creatinine 0.62 0.60 - 1.10 mg/dL [facility] Glucose 108 70 - 199 mg/dL [facility] Comment: Interpretive Data Fasting glucose >/= [...] classification and Diagnosis of Diabetes Diabetes Care 2017;40 (Suppl. 1):S11. Current interpretive data was last revised 2016. Calcium 9.5 8.5 - 10.3 mg/dL [facility] Bilirubin, total 0.4 0.1 - 1.2 mg/dL [facility] Protein, pl 7.5 6.5 - 8.5 g/dL [facility] Albumin 4.1 3.5 - 5.0 g/dL [facility] Alk phos 70 40 - 130 Units/L [facility] ALT 75(H) 7 - 45 Units/L [facility] AST 39 10 - 45 Units/L [facility] Blood 11/21/2021 12:2 4 PM CDT 11/21/2021 12:42 PM CDT us Aura Galeas CLINICAL PRACTICE CONSULTANT LAB BLOOD ORDERABLES Fin al Result [facility] Department [place] [address] * (ABNORMAL) CBC without differential (11/21/2021 12:24 PM CDT) WBC 13.6(H) 3.8 - 9.9 K/cumm [facility] Hgb 13.2 11.9 - 15.5 g/dL [facility] Hct 36.8 35.6 - 45.5 % [facility] Plt 410(H) 150 - 400 K/cumm [facility] MPV 10.8 9.1 - 12.3 fL [facility] RBC 4.35 3.90 - 5.20 M/cumm [facility] MCV 84.6 81.3 - 96.4 fL [facility] MCH 30.3 27.1 - 33.3 pg [facility] MCHC 35.9(H) 32.3 - 35.7 g/dL [facility] RDW CV 13.2 11.1 - 14.9 % [facility] RDW SD 40.5 35.7 - 48.1 fL [facility] NRBC abs 0.00 0.00 - 0.01 K/cumm [facility] Blood 11/21/2021 12:2 4 PM CDT 11/21/2021 12:43 PM CDT Aura Galeas CLINICAL PRACTICE CONSULTANT LAB BLOOD ORDERABLES Fin al Result [facility] Department [place] [address] * (ABNORMAL) POCT urinalysis dipstick (11/21/2021 11:58 AM CDT) Color, Urine, POC Dark Anaid Clarity, ur, POC Cloudy(A) Clear Glucose, ur, POC Negative Negative MG/DL Bilirubin, ur, POC Negative Negative, Small, Moderate, Large Ketones, ur, POC Large(A) Negative Specific [place], POC 1.030 1.005 - 1.030 Blood, ur, POC Negative Negative pH, ur, POC 6.5 5.0 - 8.0 Protein, ur, POC Trace(A) Negative Urobilinogen, urine, POC 0.2 0.2 - 1.0 mg/dL Nitrite, ur, POC Negative Negative Leukocytes, ur, POC Negative Negative Lot Number [id number] Urine 11/21/2021 11:5 8 AM CDT Aura Galeas CLINICAL PRACTICE CONSULTANT POINT OF CARE TEST ORDER DOROTEO Final Result documented in this encounter Visit Diagnoses Not on filedocumented in this encounter Administered Medications Inactive Administered Medications - up to 3 most recent administrations Medication Order MAR Action Action Date Dose Rate Site Carrier Fluids for Secondary Infusion - 0.9% Sodium Chloride 30 mL, intravenous, As needed, For priming tubing and/or flushing, Starting on Sun11/21/21 at 1205, 0-250 ml/hr to flush line after IV infusions when no maintenance IV ordered. Infuse 30mL at the same rate as the secondary infusion. Run as primary IV, not intended for KVO. dextrose 5% and Lactated Ringer's infusion 250 mL/hr, intravenous, Continuous, Starting on Sun11/21/21 at 1245, New Bag 11/21/2021 1:25 PM CDT 250 mL/hr 250 mL/hr Lactated Ringer's (LR) bolus 1,000 mL 1,000 mL, intravenous, Once, On Sun11/21/21 at 1245, For 1 dose New Bag 11/21/2021 12:33 PM CDT 1,000 mL Lactated Ringer's (LR) bolus 1,000 mL 1,000 mL, intravenous, Once, On Sun11/21/21 at 1700, For 1 dose New Bag 11/21/2021 4:21 PM CDT 1,000 mL ondansetron (ZOFRAN) injection 4 mg 4 mg, intravenous, Administer over 2 Minutes, Once, On Sun11/21/21 at 1245, For 1 dose Given 11/21/2021 12:31 PM CDT 4 mg prochlorperazine (COMPAZINE) tablet 10 mg 10 mg, oral, Once, On Sun11/21/21 at 1645, For 1 dose Given 11/21/2021 4:14 PM CDT 10 mg sodium chloride 0.9% flush 0.5-20 mL 0.5-20 mL, intra-catheter, Every 8 hours scheduled, First dose on Sun11/21/21 at 1400, Flush volume based on line type and size. sodium chloride 0.9% flush 0.5-20 mL 0.5-20 mL, intra-catheter, As needed, line care, Starting on Sun11/21/21 at 1205, Flush volume based on line type and size. Flush before and after each use. Given 11/21/2021 12:33 PM CDT 10 mL thiamine (VITAMIN B-1) 100 mg in sodium chloride 0.9% 100 mL IVPB 100 mg, intravenous, at 202 mL/hr, Administer over 30 Minutes, Once, On Sun11/21/21 at 1245, For 1 dose, Indications: Nutritional DeficiencyIndications:Nutri tional Deficiency New Bag 11/21/2021 12:43 PM CDT 100 mg 202 mL/hr documented in this encounter Discontinued Medications Medication Sig Discontinue Reason Start Date End Da te naproxen (NAPROSYN) 500 mg tablet Take 1 tablet (500 mg total) by mouth 2 (two) times a day with meals Stop Taking at Discharge 07/19/2020 11/21/2021 estradioL (ESTRACE) 2 mg tablet Stop Taking at Discharge 10/05/2021 11/21/2021 progesterone 50 mg/mL injection Stop Taking at Discharge 09/15/2021 11/21/2021 documented as of this encounter Active and Recently Administered Medications Times are shown in CDT. Scheduled Medication Order 11/19/2021 11/20/2021 11/21/2021 Lactated Ringer's (LR) bolus 1,000 mL (COMPLETED) 1,000 mL, intravenous, Once, On Sun11/21/21 at 1245, For 1 dose 1233 (New Bag - Prov ider: Angeli Henry RN)1336 (Stopped - Provider: Hiwot Atkins RN) Lactated Ringer's (LR) bolus 1,000 mL (COMPLETED) 1,000 mL, intravenous, Once, On Sun11/21/21 at 1700, For 1 dose 1621 (New Bag - Prov ider: Angeli Henry RN)1729 (Stopped - Provider: Angeli Henry RN) ondansetron (ZOFRAN) injection 4 mg (COMPLETED) 4 mg, intravenous, Administer over 2 Minutes, Once, On Sun11/21/21 at 1245, For 1 dose 1231 (Given - Provid er: Angeli Henry RN) prochlorperazine (COMPAZINE) tablet 10 mg (COMPLETED) 10 mg, oral, Once, On Sun11/21/21 at 1645, For 1 dose 1614 (Given - Provid er: Angeli Henry RN) sodium chloride 0.9% flush 0.5-20 mL 0.5-20 mL, intra-catheter, Every 8 hours scheduled, First dose on Sun11/21/21 at 1400, Flush volume based on line type and size. 1337 (Not Given - Pr ovider: Angeli Henry RN - Reason: IV Infusing) thiamine (VITAMIN B-1) 100 mg in sodium chloride 0.9% 100 mL IVPB (COMPLETED) 100 mg, intravenous, at 202 mL/hr, Administer over 30 Minutes, Once, On Sun11/21/21 at 1245, For 1 dose, Indications: Nutritional Deficiency 1243 (New Bag - Prov ider: Angeli Henry, COCO)1324 (Stopped - Provider: Hiwot Atkins, COCO) Continuous Medication Order 11/19/2021 11/20/2021 11/21/2021 dextrose 5% and Lactated Ringer's infusion 250 mL/hr, intravenous, Continuous, Starting on Sun11/21/21 at 1245, 1325 (New Bag - Prov ider: Hiwot Atkins, COCO)1729 (Stopped - Provider: Angeli Henry RN) PRN Medication Order 11/19/2021 11/20/2021 11/21/2021 Carrier Fluids for Secondary Infusion - 0.9% Sodium Chloride 30 mL, intravenous, As needed, For priming tubing and/or flushing, Starting on Sun11/21/21 at 1205, 0-250 ml/hr to flush line after IV infusions when no maintenance IV ordered. Infuse 30mL at the same rate as the secondary infusion. Run as primary IV, not intended for KVO. sodium chloride 0.9% flush 0.5-20 mL 0.5-20 mL, intra-catheter, As needed, line care, Starting on Sun11/21/21 at 1205, Flush volume based on line type and size. Flush before and after each use. 1233 (Given - Provid er: Angeli Henry RN) documented in this encounter Orders Medications Ordered That Cyrus ht Not Have Been Administered Count Last Ordered Date First Ordered Date Carrier Fluids for Secondary Infusion - 0.9% Sodium Chloride 1 11/21/2021 sodium chloride 0.9% flush 0.5-20 mL 1 11/05 Discharge Count Last Ordered Date First Orde red Date DISCHARGE PATIENT 1 11/21/2021 documented in this encounter Care Teams Speech Lang Path Relationship Specialty Start Date End Date Kit Arriola MD [address] [place] [address] PCP - General Emergency Medicine 12/19/18 documented as of this encounter
--- OUTSIDE RECORDS SUMMARY | 2024-02-17 13:57 | XMS_ITS | Encounter Summary ---
Author Organization [facility] Address [address] [place] [address] Phone Care Team Providers Care Group Work Program Director Name Role Phone Kit Arriola MD Primary Care Provider [phone] Reason for Visit * Cardiology (Routine) - Closed Specialty Diagnoses / Procedures Referred By Contac t Referred To Contact Diagnoses resulting from in vitro fertilization, antepartum Procedures Echocardiogram Janice Jordan MD [address] [facility] [address] [place] [address] Phone: tel: fax: [facility] (All Locations) Referral ID Status Reason Start Date Expiration Date Visits Re quested Visits Authorized [id number] Closed 10/12/2021 11/11/2022 2 2 Encounter Details Date Type Department Care Team (Late st Contact Info) Description 01/02/2022 11:00 AM FREELANCE DIGITAL PROJECT MANAGER Office Visit [facility] Pediatric Cardiology [facility] 2nd Floor [address] [place] [address] Supervision of other normal , antepartum (Primary Dx) Social History Tobacco Use Types Packs/Day Years Used Date Smoking Tobacco: Never Smokeless Tobacco: Never AUDIT-C Answer Date Recorded Q1: How often do you have a drink containing alcohol? Never 11/21/2021 Q2: How many drinks containi ng alcohol do you have on a typical day when you are drinking? Patient does not drink 10/17/202 2 Frequency of Binge Drinking Not on file 11/05 Comments Yes Sex and Gender Information Value Date Recorded Sex Assigned at Not on file Legal Sex Female 5:56 PM FREELANCE DIGITAL PROJECT MANAGER Gender Identity Female 07/16/2022 10:05 AM CDT Sexual Orientation Straight 07/16/2022 10 :05 AM CDT documented as of this encounter Last Filed Vital Signs Vital Sign Reading Time Taken Comments Blood Pressure 126/85 01/02/2022 12:07 PM FREELANCE DIGITAL PROJECT MANAGER Pulse - - Temperature - - Respiratory Rate - - Oxygen Saturation - - Inhaled Oxygen Concentration - - Weight 80.6 kg (177 lb 11.1 oz) 022 12:07 PM FREELANCE DIGITAL PROJECT MANAGER Height 165.1 cm (5' 5 ) 01/02/2022 12:0 7 PM FREELANCE DIGITAL PROJECT MANAGER Body Mass Index 29.57 01/02/2022 12:07 PM FREELANCE DIGITAL PROJECT MANAGER documented in this encounter Progress Notes * Alireza Savage MD - 01/02/2022 11:00 AM CST CARDIOLOGY CONSULTATION RE: Roxana Briseno : 1990 I had the pleasure of seeing Ms. Roxana Briseno in cardiac consultation at [facility]. Roxana is a 31 y.o. female referred today for echocardiogram dueto IVF . Her YOBANI is 05/20/22, making the gestational age approximately 20 2/7 weeks at the time of this evaluation. She plans to deliver at [facility]. She reports she is carrying a male fetus. She is accompanied by her . No other anomalies have been noted. Genetic testing: None Referring OB: Dr. Jordan Past Medical History: Diagnosis Date History of ectopic Current Outpatient Medications: folic acid (FOLVITE) 1 mg tablet, , Disp: , Rfl: ondansetron (ZOFRAN) 4 mg tablet, Take 1 tablet (4 mg total) by mouth every 8 (eight) hours as needed for nausea or vomiting, Disp: 20 tablet, Rfl: 3 PrePlus 27 mg iron- 1 mg tablet, , Disp: , Rfl: prochlorperazine (COMPAZINE) 10 mg tablet, Take 1 tablet (10 mg total) by mouth every 8 (eight) hours as needed for nausea or vomiting, Disp: 30 tablet, Rfl: 1 Allergies Allergen Reactions Latex Hives Hives Morphine Hives and Itching Itching Vancomycin Hives Itching Tramadol Itching No family history on file. There is no known congenital heart disease, defects, or genetic syndromes. Social History Roxana is to her Luke. She lives in [place], [place]. She denies tobacco, alcohol, or illicit drug use. Vitals: 01/02/22 1207 BP: 126/85 Weight: 80.6 kg (177 lb 11.1 oz) Height: 165.1 cm (5' 5 ) Body mass index is 29.57 kg/m??. Echocardiogram: Initial echocardiogram (2D, color, Doppler) performed on [...] normal Doppler pattern. Normal ductus venosus Doppler. Impression and Recommendations: In summary, it is my impression that this male fetus at 20 2/7 weeks gestation has a structurally normal heart with no evidence of hemodynamically significant congenital heart disease. I do not anticipate the need for further cardiology follow-up. I discussed with Roxana the limitations of echocardiography and of this study in particular, including the inability to rule out small septal defects, mild valve abnormalities, aortic coarctation, and that there are certain cardiac structures patent in utero that normally close following delivery. Should there be concerns about this infant following delivery, we would be happy to consult and/or interpret an echocardiogram at that time. Thank you for the opportunity of consultation. Please contact me at [phone] with questions or concerns regarding these findings or recommendations. I spent a total of 20 minutes [id number] with the patient and greater than 50% of the time was spent on counseling. Sincerely, Alireza Savage MD LANCE DIGITAL PROJECT MANAGER documented in this encounter Plan of Treatment Not on file documented as of this encounter Visit Diagnoses Diagnosis Supervision of other normal , antepartum- Primary documented in this encounter Care Teams Group Work Program Director Relationship Specialty Start Date End Date Kit Arriola MD [address] [address] PCP - General Emergency Medicine 12/19/18 documented as of this encounter
--- OUTSIDE RECORDS SUMMARY | 2024-02-17 13:57 | XMS_ITS | Encounter Summary ---
Author Organization [facility] [employer] [facility] Address [address] [place] [address] Phone Care Team Providers Care Planishing Press Operator Name Role Phone Kit Arriola MD Primary Care Provider [phone] Reason for Referral * Cardiology (Routine) - Closed Specialty Diagnoses / Procedures Referred By Contac t Referred To Contact Diagnoses resulting from in vitro fertilization, antepartum Procedures Echocardiogram Janice Jordan MD [address] [place] [address] Phone: tel: fax: [facility] (All Locations) Referral ID Status Reason Start Date Expiration Date Visits Re quested Visits Authorized [id number] Closed 10/12/2021 11/11/2022 2 2 IFIED REGISTERED LOCKSMITH Reason for Visit * Cardiology (Routine) - Closed Specialty Diagnoses / Procedures Referred By Contac t Referred To Contact Diagnoses resulting from in vitro fertilization, antepartum Procedures Echocardiogram Janice Jordan MD [address] [place] [address] Phone: tel: fax: [facility] (All Locations) Referral ID Status Reason Start Date Expiration Date Visits Re quested Visits Authorized [id number] Closed 10/12/2021 11/11/2022 2 2 Encounter Details Date Type Department Care Team (Latest Contact Info) Description 01/02/2022 11:00 AM CERTIFIED REGISTERED LOCKSMITH - 01/02/2022 11:59 PM CERTIFIED REGISTERED LOCKSMITH Hospital Encounter [facility] Pediatric Cardiology [facility] 2nd Floor [address] [place] [address] resulting from in vitro fertilization, antepartum Discharge Disposition: Discharge to home or [...] on file Legal Sex Female 5:56 PM CERTIFIED REGISTERED LOCKSMITH Gender Identity Female 07/16/2022 10:05 AM CDT [...] Procedure Name Priority Date/Time Associated Diagnosis Comments ECHOCARDIOGRAM Routine 01/02/2022 11:49 AM CERTIFIED REGISTERED LOCKSMITH resulting from in vitro fertilization, antepartum documented in this encounter Results * Echocardiogram (01/02/2022 11:49 AM CERTIFIED REGISTERED LOCKSMITH) Anatomical Region Laterality Modality Ultrasound 01/02/2022 11:2 0 AM CERTIFIED REGISTERED LOCKSMITH Narrative 01/02/2022 11:57 AM CERTIFIED REGISTERED LOCKSMITH ?[facility] ? Echo Report ?[facility]'[address], [place] ??[address] ?[phone] ? Patient Name: MUKUND LIVINGSTON ? Study Type: Echo ? Patient : 1990 ? Exam Date: ??01/02/2022 ? Age: ?31Y ? Exam Time: ??11:20:00 AM ? Referring MD: DIYA GORMAN ? Height: ? 165.1cm ?Weight: ? 80.6kg ? BSA: ?1.88 m2 ?Sex: FEMALE ? BP: ? 126/85 ? Electrical Controls Technician: Neeta Serrano ? Pat. Stat.: Outpatient ? Account:[id number] ? Indications for Study:IVF ? Procedures: COLORFLOW, [...] Normal. Septum: PFO. Defect sz. Moderate ??Shunt: Mbaio-tn-Nrbh ?? Annular Dimensions: ??TV: ??MV: ??LVID: ??RVID: [...] Procedure Note Alireza Casiano MD - 01/02/2022 [facility] Echo Report [facility] [address], [place] [address] Patient Name: MUKUND LIVINGSTON Study Type: Echo Patient : 1990 Exam Date: 01/02/2022 Age: 31Y Exam Time: 11:20:00 AM Referring MD: DIYA GORMAN Height: 165.1cm Weight: 80.6kg BSA: 1.88 m2 Sex: FEMALE BP: 126/85 Electrical Controls Technician: Neeta Rodriguez. Stat.: Outpatient Account:[id number] Indications for Study:IVF Procedures: COLORFLOW, DOPPLER COMPLETE, [...] Normal. Septum: PFO. Defect sz. Moderate Shunt: Wpzdu-bf-Awfb Annular Dimensions: TV: MV: LVID: RVID: Pulm [...] MD CV ECHO PROCEDURES Fi nal Result documented in this encounter Visit Diagnoses Diagnosis resulting from in vitro fertilization, antepartum documented in this encounter Care Teams Planishing Press Operator Relationship Specialty Start Date End Date Kit Arriola MD [address] [address] PCP - General Emergency Medicine 12/19/18 documented as of this encounter
--- OUTSIDE RECORDS SUMMARY | 2024-02-17 13:57 | XMS_ITS | Encounter Summary ---
Author Organization [facility] Healthcare Address [address] [place] [address] Care Team Providers Care Strategic Sourcing Specialist Name Role Phone Kit Arriola MD Primary Care Provider [phone] Encounter Details Date Type Department Care Team (Late st Contact Info) Description 01/30/2022 Nurse Triage [address] [address] Ketty Gonzales, RN Social History Tobacco Use Types Packs/Day [...] on file Legal Sex Female 5:56 PM MANTEL CRAFTSMAN Gender Identity Female 07/16/2022 10:05 AM CDT Sexual Orientation Straight 07/16/2022 10 :05 AM CDT documented as of this encounter Miscellaneous Notes * Telephone Encounter - Ketty Gonzales RN - 01/30/2022 3:05 PM CST Pt call to comm after hours with concerns for decreased activity today. 24 weeks. < 10 movements noted today. Advised to go to triage for eval. Pt will go to nearest local hospital due to the weather. She has someone to drive her. EL CRAFTSMAN * Telephone Encounter - Ketty Gonzales RN - 01/30/2022 3:02 PM CST Reason for Disposition [1] 23 or more weeks AND [2] baby moving less today by kick count (e.g., kick count < 5in 1 hour or < 10 in 2 hours) Answer Assessment - Initial Assessment Questions 1. MOVEMENT: Has the baby's movement decreased or changed significantly from normal? (e.g.,yes, no; describe) When was the last time you felt the baby move? (e.g., minutes, hours) Decreased today 2. YOBANI: What date are you expecting to deliver? 3. : How many weeks are you? 25 4. OTHER SYMPTOMS: Do you have any other symptoms? (e.g., abdominal pain, fever, leaking fluid from vagina, vaginal bleeding, widespread itching, etc.) none Protocols used: - Decreased or Abnormal [id number] EL CRAFTSMAN documented in this encounter Plan of Treatment Not on file documented as of this encounter Visit Diagnoses Not on filedocumented in this encounter Care Teams Strategic Sourcing Specialist Relationship Specialty Start Date End Date Kit Arriola MD [address] [address] PCP - General Emergency Medicine 12/19/18 documented as of this encounter
--- OUTSIDE RECORDS SUMMARY | 2024-02-17 13:57 | XMS_ITS | Encounter Summary ---
Author Organization [facility] Healthcare Address [address] [place] [address] Care Team Providers Care Rehab Physician Name Role Phone Kit Arriola MD Primary Care Provider [phone] Encounter Details Date Type Department Care Team (Late st Contact Info) Description 04/16/2020 9:13 PM SPECIAL DELIVERY MAIL CARRIER - 04/16/2020 10:00 PM SPECIAL DELIVERY MAIL CARRIER Emergency [facility] Emergency Department [address] [place] [address] Unknown, Rina Maldonado, CRESENCIO [facility] [address] [place] [id number] Discharge Disposition: Discharge to home or self care Social History Tobacco Use Types Packs/Day Years Used Date Smoking Tobacco: Never Assessed Comments Unknown Sex and Gender Information Value Date Recorded Sex Assigned at Not on file Legal Sex Female 5:56 PM SPECIAL DELIVERY MAIL CARRIER Gender Identity Female 07/16/2022 10:05 AM CDT Sexual Orientation Straight 07/16/2022 10 :05 AM CDT documented as of this encounter Last Filed Vital Signs Vital Sign Reading Time Taken Comments Blood Pressure 126/85 04/16/2020 9:22 PM SPECIAL DELIVERY MAIL CARRIER Pulse 102 04/16/2020 9:22 PM SPECIAL DELIVERY MAIL CARRIER Temperature 36.8 ??C (98.2 ??F) 04/16/2020 9:22 PM CS T Respiratory Rate - - Oxygen Saturation 100% 04/16/2020 9:22 PM SPECIAL DELIVERY MAIL CARRIER Inhaled Oxygen Concentration - - Weight 72.6 kg (160 lb 0.9 oz) 04/16/2020 9:22 P M SPECIAL DELIVERY MAIL CARRIER Height 165.1 cm (5' 5 ) 04/16/2020 9:22 PM SPECIAL DELIVERY MAIL CARRIER Body Mass Index 26.63 04/16/2020 9:22 PM SPECIAL DELIVERY MAIL CARRIER documented in this encounter Discharge Disposition Disposition Code Departure Means Destination Discharge to home or self care documented in this encounter Plan of Treatment Not on file documented as of this encounter Procedures Procedure Name Priority Date/Time Associated Diagnosis Comments SCAN - LABS 04/19/2020 12:00 AM CDT documented in this encounter Results * SCAN - LABS (04/19/2020 12:00 AM CDT) Narrative 04/19/2020 12:00 AM CDT Ordered by an unspecified provider. us Historical Provider MD Final Res ult documented in this encounter Visit Diagnoses Not on filedocumented in this encounter Care Teams Rehab Physician Relationship Specialty Start Date End Date Kit Arriola MD [address] [address] PCP - General Emergency Medicine 12/19/18 documented as of this encounter
--- OUTSIDE RECORDS SUMMARY | 2024-02-17 13:57 | XMS_ITS | Encounter Summary ---
Author Organization [facility] [employer] [facility] Address [address] [place] [address] Phone Care Team Providers Care Leather Lacer Name Role Phone Kit Arriola MD Primary Care Provider [phone] Encounter Details Date Type Department Care Team (Late st Contact Info) Description 06/17/2019 Orders Only [facility] [place], [place] Vahid Antonio MD [address] [place] [address] Social History Tobacco Use Types Packs/Day Years Used Date Smoking Tobacco: Never Assessed Comments Unknown Sex and Gender Information Value Date Recorded Sex Assigned at Not on file Legal Sex Female 5:56 PM APPLICATIONS SYSTEM ANALYST Gender Identity Female 07/16/2022 10:05 AM CDT Sexual Orientation Straight 07/16/2022 10 :05 AM CDT documented as of this encounter Plan of Treatment Not on file documented as of this encounter Procedures Procedure Name Priority Date/Time Associated Diagnosis Comments SURGICAL PATHOLOGY Routine 06/17/2019 12 :00 AM CDT documented in this encounter Results * Surgical pathology (06/17/2019 12:00 AM CDT) 06/17/2019 06/18/2019 8:2 2 AM CDT Narrative 06/19/2019 10:06 AM CDT [facility] Department of Pathology [address] [place], [place] [address] ?? Final Report Patient Name: MUKUND GAONA : ??1990 (Age: 29) Gender: ??F Address: ??[address] [place], [place] ??[address] Hospital #: [id number] Service: DEFAULT Location: [facility] OPS - PRE/POST SURGERY Patient Type: Same Day Service ? Taken: 06/17/2019 Received: 06/18/2019 Accessioned: 06/18/2019 Reported: 06/19/2019 Physician(s): Vahid Antonio MD Diagnosis: Right fallopian tube, salpingectomy: Products of conception (ectopic ). Kit Stark M.D. Report Electronically Reviewed and Signed Out By ??Kit Stark M.D. 06/19/2019 10:06:36 Specimen(s) Received: A: Right fallopian tube ectopic Microscopic Description: Sections show dilated fallopian tube containing immature chorionic villi, trophoblast, and blood clot. Clinical History: Right ectopic Laparoscopic right salpingectomy Gross Description The specimen container is labeled with the patient's name and right fallopian tube ectopic . ??Received in formalin is a disrupted fallopian tube which measures 6.2 cm in length and ranges in diameter from 0.5-1.4 cm. ??Located 2.0 cm from the fimbria is a 1.5 cm area of disruption with protruding purple wood tissue and purple coagulum (2.0 x 1.7 x 1.2 cm). ?? parts are not identified. ??Diesel Fitter Mechanic sections are submitted as follows: A1area of disruption and protruding purple wood tissue [id number] sections from the remaining specimen (A3 including fimbria) sal/06/18/2019 10:30 ??CRESENCIO [facility] Vahid Antonio MD LAB PATHOLOGY ORDERABLES Final Result documented in this encounter Visit Diagnoses Not on filedocumented in this encounter Care Teams Leather Lacer Relationship Specialty Start Date End Date Kit Arriola MD [address] [address] PCP - General Emergency Medicine 12/19/18 documented as of this encounter
--- OUTSIDE RECORDS SUMMARY | 2024-02-17 13:57 | XMS_ITS | Encounter Summary ---
Author Organization [facility] Healthcare Address [address] [place] [address] Care Team Providers Care Sales Support Representative Name Role Phone Kit Arriola MD Primary Care Provider [phone] Encounter Details Date Type Department Care Team (Latest Contact Info) Description 06/17/2019 10:58 AM CDT - 06/17/2019 6:10 PM CDT Hospital Encounter [facility] Vahid Antonio MD [address] [place] [address] Discharge Disposition: Discharge to home or self care Social History Tobacco Use Types Packs/Day Years Used Date Smoking Tobacco: Never Assessed Comments Unknown Sex and Gender Information Value Date Recorded Sex Assigned at Not on file Legal Sex Female 5:56 PM FLUX CORE WELDER Gender Identity Female 07/16/2022 10:05 AM CDT Sexual Orientation Straight 07/16/2022 10 :05 AM CDT documented as of this encounter Last Filed Vital Signs Vital Sign Reading Time Taken Comments Blood Pressure 128/78 06/17/2019 2:51 PM CDT Pulse 98 06/17/2019 2:51 PM CDT Temperature 36.1 ??C (97 ??F) 06/17/2019 2:51 PM CDT Respiratory Rate - - Oxygen Saturation 95% 06/17/2019 2:51 PM CDT Inhaled Oxygen Concentration - - Weight 70.8 kg (156 lb) 06/17/2019 2:51 PM CDT Height 165.1 cm (5' 5 ) 06/17/2019 2:51 PM CDT Body Mass Index 25.96 06/17/2019 2:51 PM CDT documented in this encounter Discharge Disposition Disposition Code Departure Means Destination Discharge to home or self care documented in this encounter Plan of Treatment Not on file documented as of this encounter Procedures Procedure Name Priority Date/Time Associated Diagnosis Comments SCAN - PATHOLOGY 06/19/2019 12:0 0 AM CDT CBC WITH AUTO DIFFERENTIAL Routine 06/17/2019 11:25 AM CDT ANTIBODY SCREEN Routine 06/17/2019 11:25 AM CDT TYPE AND SCREEN Routine 06/17/2019 11:25 AM CDT documented in this encounter Results * SCAN - PATHOLOGY (06/19/2019 12:00 AM CDT) Narrative 06/19/2019 12:00 AM CDT Ordered by an unspecified provider. us Historical Provider MD Final Res ult * Antibody screen (06/17/2019 11:25 AM CDT) Antibody Screen NEGATIVE [facility] 06/17/2019 11:2 5 AM CDT 06/17/2019 11:28 AM CDT Narrative Resulting Agency Comment SDC Vahid Antonio MD LAB BLOOD BANK TEST ORDERABLES Final Result [address] [phone] * Type and screen (06/17/2019 11:25 AM CDT) Blood Type AP [facility] 06/17/2019 11:2 5 AM CDT 06/17/2019 11:28 AM CDT Narrative [facility] - 06/17/2019 12:16 PM CDT Rm# 1 DOS 06/17/19 N Resulting Agency Comment SDC us Vahid Antonio MD LAB BLOOD BANK TEST ORDERABLES Final Result [facility] [address] [phone] * (ABNORMAL) CBC with auto differential (06/17/2019 11:25 AM CDT) WBC 6.5 3.8 - 9.9 X10 3/ul [facility] RBC 3.80(L) 3.90 - 5.20 x10 6/ul [facility] Hemoglobin 11.3(L) 11.9 - 15.5 g/dL [facility] Hct 34.1(L) 35.6 - 45.5 % [facility] MCV 89.7 81.3 - 96.4 fl [facility] MCH 29.7 27.1 - 33.3 pg [facility] MCHC 33.1 32.3 - 35.7 g/dl [facility] RDW 14.1 11.1 - 14.9 % [facility] Plt Count 326 150 - 400 x10 3/ul [facility] MPV 9.4 9.1 - 12.3 fl [facility] Neut % 59.1 % [facility] Immature Gran % 0.5 % [facility] Lymph % 27.4 % [facility] AST - [facility] Ciales % 11.5 % [facility] AST - [facility] [employer] Eos % 0.9 % [facility] - [facility] [employer] AUTO BASO % 0.6 % [facility] NEUTROPHIL ABS # 3.9 1.7 - 6.5 x10 3/ul [facility] Immature Gran # 0.0 0.0 - 0.1 x10 3/ul [facility] Absolute Lymphs (auto) 1.8 0.8 - 3.3 x10 3/ul [facility] Absolute Monos (auto) 0.8 0.2 - 0.8 x10 3/ul [facility] Absolute Eos (auto) 0.1 0.0 - 0.5 x10 3/ul [facility] BASOPHIL ABS # 0.0 0.0 - 0.1 x10 3/ul [facility] Nucleat RBC Rel Count 0.0 #/100WBC [facility] NRBC abs 0.00 0.00 - 0.01 x10 3/ul [facility] Absolute Neutrophils 3,900 200 - 8,000 /ul [facility] 06/17/2019 11:2 5 AM CDT 06/17/2019 11:28 AM CDT Narrative Resulting Agency Comment SDC us Vahid Antonio MD LAB BLOOD ORDERABLES Final Res ult Performing Organization Address City/State/[facility] Co de Phone Number [address] [phone] documented in this encounter Visit Diagnoses Not on filedocumented in this encounter Care Teams Sales Support Representative Relationship Specialty Start Date End Date Kit Arriola MD [address] [place] [address] PCP - General Emergency Medicine 12/19/18 documented as of this encounter
--- OUTSIDE RECORDS SUMMARY | 2024-02-17 13:57 | XMS_ITS | Encounter Summary ---
Author Organization [facility] Healthcare Address [address] [place] [address] Care Team Providers Care Blow Molding Machine Operator Name Role Phone Kit Arriola MD Primary Care Provider [phone] Reason for Visit * Reason Comments Breast Pain Encounter Details Date Type Department Care Team (Late st Contact Info) Description 07/19/2020 11:12 AM CDT - 07/19/2020 2:00 PM CDT Emergency [facility] Emergency Department [address] [place], [place] [id number] Gregg Chu MD [facility] [address] Breast pain (Primary Dx) Discharge Disposition: Discharge to home or self care Social History Tobacco Use Types Packs/Day Years Used Date Smoking Tobacco: Never Assessed Comments Unknown Sex and Gender Information Value Date Recorded Sex Assigned at Not on file 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 Gender Identity Female 07/16/2022 10:05 AM CDT Sexual Orientation Straight 07/16/2022 10 :05 AM CDT documented as of this encounter Last Filed Vital Signs Vital Sign Reading Time Taken Comments Blood Pressure 127/83 07/19/2020 1:59 PM CDT Pulse 74 07/19/2020 1:59 PM CDT Temperature 36.4 ??C (97.6 ??F) 07/19/2020 10:21 AM C DT Respiratory Rate 16 07/19/2020 1:59 PM CDT Oxygen Saturation 99% 07/19/2020 1:59 PM CDT Inhaled Oxygen Concentration - - Weight 73.2 kg (161 lb 6 oz) 07/19/2020 10:21 AM CDT Height 165.1 cm (5' 5 ) 07/19/2020 10:21 AM CDT Body Mass Index 26.85 07/19/2020 10:21 AM CDT documented in this encounter Discharge Instructions * Discharge Instructions* Carlie Tanner PA - 07/19/2020 1:34 PM CDT Follow up as scheduled to have an US and Mammogram of your breast. Return to the ED for new or worsening symptoms including warmth, fever, or redness. * Attachments The following attachments cannot be sent through Care Everywhere. * Nipple Discharge (AfterCare(R) Instructions(ER/ED)) (Togolese) documented in this encounter Medications at Time of Discharge naproxen (NAPROSYN) 500 mg tablet Take 1 tablet (500 mg total) by mouth 2 (two) times a day with meals 30 tablet 07/19/2020 11/21/2021 documented as of this encounter Ordered Prescriptions Prescription Sig Dispense Quantity Refills Last Filled Start Date End Date naproxen (NAPROSYN) 500 mg tablet Take 1 tablet (500 mg total) by mouth 2 (two) times a day with meals 30 tablet 07/19/2020 11/21/2021 documented in this encounter Discharge Disposition Disposition Code Departure Means Destination Discharge to home or self care documented in this encounter ED Notes * Mervat Serra RN - 07/19/2020 10:19 AM CDT Drainage from right nipple, Breast lumps bilat scheduled for US/ mammogram at [facility] 07/31/20. Today feeling weak, lightheaded, no fever. documented in this encounter Plan of Treatment Not on file documented as of this encounter Procedures Procedure Name Priority Date/Time Associated Diagnosis Comments POCT HCG, URINE Routine 07/19/2020 12:07 PM CDT EGFR STAT 07/19/2020 11:28 AM CDT DIFFERENTIAL AUTO STAT 07/19/2020 11: 28 AM CDT CBC WITH AUTO DIFFERENTIAL STAT 07/19/2020 11:28 AM CDT COMPREHENSIVE METABOLIC PANEL STAT 07/19/2020 11:28 AM CDT documented in this encounter Results * POCT hCG, urine (07/19/2020 12:07 PM CDT) HCG, ur, POC Negative Lot Number [id number] QC Backgroud Clear Acceptable QC Control Line Acceptable Urine 07/19/2020 12:0 7 PM CDT Carlie DUPONT POINT OF CARE TEST ORDERA BLES Final Result * eGFR (07/19/2020 11:28 AM CDT) eGFR 118 mL/min/1.7 3 m2 [facility] Comment: Interpretive Data Reference Interval Normal ?>/= 90 mL/min/1.73m2 Mildly decreased* ? 60 - 89 mL/min/1.73m2 Mildly to moderately decreased ?45 - 59 mL/min/1.73m2 Moderately to severely decreased ??30 - 44 mL/min/1.73m2 Severely decreased ?15 - 29 mL/min/1.73m2 Kidney Failure ?< 15 ??mL/min/1.73m2 *Relative to young adult level Estimated glomerular filtration rate is determined by the CKD-EPI equation recommended by the National Kidney Foundation (KDIGO 2012 Clinical Practice Guideline for the Evaluation and Management of Chronic Kidney Disease. Kidney Intnl Suppl Feb 2012;3:1). The CKD-EPI equation should not be used for patients with unstable renal function and has not been validated in children and those over 70. Current interpretive data was last reviewed 2020 Testing performed by: [address] [address] Blood specimen (specimen) 07/19/2020 11:28 AM CDT 07/19/2020 11:35 AM CDT Gregg Chu MD LAB BLOOD ORDERABLES Final Result [facility] Department [place] [address] * Differential, auto (07/19/2020 11:28 AM CDT) Neutrophil abs 2.6 1.7 - 6.5 K/cumm [facility] Comment:Testing performed by : [address] [address] Imm gran abs 0.0 0.0 - 0.1 K/cumm [facility] Comment:Testing performed by : [address] [address] Lymphocyte abs 1.9 0.8 - 3.3 K/cumm [facility] Comment:Testing performed by : [address] [address] Monocyte abs 0.4 0.2 - 0.8 K/cumm [facility] Comment:Testing performed by : [address] [address] Eosinophil abs 0.1 0.0 - 0.5 K/cumm [place] Comment:Testing performed by : [address] [address] Basophil abs 0.0 0.0 - 0.1 K/cumm [place] Comment:Testing performed by : [address] [address] Neutrophil pct 50.1 % [facility] Comment: Interpretive Data Percent cell count reference ranges are not reported, since discordance with absolute values may lead to misinterpretation of CBC data. Current Interpretive Data was last revised on 2017. Testing performed by: [address] [address] Imm gran pct 0.6 % [facility] Comment: Interpretive Data Percent cell count reference ranges are not reported, since discordance with absolute values may lead to misinterpretation of CBC data. Current Interpretive Data was last revised on 2017. Testing performed by: [address] [address] Lymphocyte pct 37.6 % [facility] Comment: Interpretive Data Percent cell count reference ranges are not reported, since discordance with absolute values may lead to misinterpretation of CBC data. Current Interpretive Data was last revised on 2017. Testing performed by: [address] [address] Monocyte pct 8.4 % [facility] Comment: Interpretive Data Percent cell count reference ranges are not reported, since discordance with absolute values may lead to misinterpretation of CBC data. Current Interpretive Data was last revised on 2017. Testing performed by: [address] [address] Eosinophil pct 2.5 % [facility] Comment: Interpretive Data Percent cell count reference ranges are not reported, since discordance with absolute values may lead to misinterpretation of CBC data. Current Interpretive Data was last revised on 2017. Testing performed by: [address] [address] Basophil pct 0.8 % [facility] Comment: Interpretive Data Percent cell count reference ranges are not reported, since discordance with absolute values may lead to misinterpretation of CBC data. Current Interpretive Data was last revised on 2017. Testing performed by: [address] [address] Blood specimen (specimen) 07/19/2020 11:28 AM CDT 07/19/2020 11:35 AM CDT us Gregg Chu MD LAB BLOOD ORDERABLES Final Result [facility] [address] [facility] Department [place] [address] * Comprehensive metabolic panel (07/19/2020 11:28 AM CDT) Sodium 139 135 - 145 mmol/L [facility] Comment:Testing performed by : [address] [address] Potassium, pl 3.8 3.3 - 4.9 mmol/L [facility] Comment:Testing performed by : [address] [address] Chloride 105 97 - 110 mmol/L [facility] Comment:Testing performed by : [address] [address] CO2 27 22 - 32 mmol/L [facility] Comment:Testing performed by : [address] [address] Anion gap 7 2 - 15 mmol/L [facility] Comment:Testing performed by : [address] [address] BUN 12 8 - 25 mg/dL [facility] Comment:Testing performed by : [address] [address] Creatinine 0.70 0.60 - 1.10 mg/dL [facility] Comment:Testing performed by : [address] [address] Glucose 92 70 - 199 mg/dL [facility] Comment: Interpretive Data Fasting glucose >/= 126 [...] Current interpretive data was last revised 2016. Testing performed by: [address] [address] Calcium 9.2 8.5 - 10.3 mg/dL [facility] Comment:Testing performed by : [address] [address] Bilirubin, total 0.3 0.1 - 1.2 mg/dL [facility] Comment:Testing performed by : [address] [address] Protein, pl 6.9 6.5 - 8.5 g/dL [facility] Comment:Testing performed by : [address] [address] Albumin 4.2 3.5 - 5.0 g/dL [facility] Comment:Testing performed by : [address] [address] Alk phos 59 40 - 130 Units/L [facility] Comment:Testing performed by : [address] [address] ALT 11 7 - 45 Units/L [facility] Comment:Testing performed by : [address] [address] AST 12 10 - 45 Units/L [facility] Comment:Testing performed by : [address] [address] Blood specimen (specimen) 07/19/2020 11:28 AM CDT 07/19/2020 11:35 AM CDT Gregg Chu MD LAB BLOOD ORDERABLES Final Result [facility] [address] [facility] Department of Laboratories [place], [place] [id number] * CBC with auto differential (07/19/2020 11:28 AM CDT) WBC 5.1 3.8 - 9.9 K/cumm [facility] Comment:Testing performed by : [address] [address] Hgb 12.8 11.9 - 15.5 g/dL [facility] Comment:Testing performed by : [address], [address] Hct 39.4 35.6 - 45.5 % [facility] Comment:Testing performed by : [address] [address] Plt 331 150 - 400 K/cumm [facility] Comment:Testing performed by : [address] [address] MPV 9.5 9.1 - 12.3 fL [facility] Comment:Testing performed by : [address], [address] RBC 4.37 3.90 - 5.20 M/cumm [facility] Comment:Testing performed by : [address], [address] MCV 90.2 81.3 - 96.4 fL [facility] Comment:Testing performed by : [address], [address] MCH 29.3 27.1 - 33.3 pg [facility] Comment:Testing performed by : [address], [address] MCHC 32.5 32.3 - 35.7 g/dL [facility] Comment:Testing performed by : [address], [address] RDW CV 12.9 11.1 - 14.9 % [facility] Comment:Testing performed by : [address], [address] RDW SD 42.5 35.7 - 48.1 fL [facility] Comment:Testing performed by : [address], [address] NRBC abs 0.00 0.00 - 0.01 K/cumm [facility] Comment:Testing performed by : [address], [address] Blood specimen (specimen) 07/19/2020 11:28 AM CDT 07/19/2020 11:35 AM CDT Gregg Chu MD LAB BLOOD ORDERABLES Final Result [facility] [address] [facility] Department [place] [address] documented in this encounter Visit Diagnoses Diagnosis Breast pain- Primary Mastodynia documented in this encounter Administered Medications Inactive Administered Medications - up to 3 most recent administrations Medication Order MAR Action Action Date Dose Rate Site HYDROcodone-acetaminophen (NORCO) 5-325 mg per tablet 1 tablet 1 tablet, oral, Once, On Sun07/19/20 at 1258, For 1 dose, Indications: PainIndications:Pain Given 07/19/2020 1:32 PM CDT 1 tablet ketorolac (TORADOL) injection 30 mg 30 mg, intravenous, Once, On Sun07/19/20 at 1154, For 1 dose, For Adult IV push, administer over 15 seconds, Indications: PainIndications:Pain Given 07/19/2020 12:02 PM CDT 30 mg documented in this encounter Active and Recently Administered Medications Times are shown in CDT. Scheduled Medication Order 07/17/2020 07/18/2020 07/19/2020 HYDROcodone-acetaminophen (NORCO) 5-325 mg per tablet 1 tablet (COMPLETED) 1 tablet, oral, Once, On Sun07/19/20 at 1258, For 1 dose, Indications: Pain 1332 (Given - Provid er: Moon Guardado RN) ketorolac (TORADOL) injection 30 mg (COMPLETED) 30 mg, intravenous, Once, On Sun07/19/20 at 1154, For 1 dose, For Adult IV push, administer over 15 seconds, Indications: Pain 1202 (Given - Provid er: Moon Guardado RN) documented in this encounter Orders IV Count Last Ordered Date First Orde red Date SALINE LOCK IV 1 07/19/2020 documented in this encounter Care Teams Blow Molding Machine Operator Relationship Specialty Start Date End Date Kit Arriola MD [address] [place] [id number] PCP - General Emergency Medicine 12/19/18 documented as of this encounter
--- OUTSIDE RECORDS SUMMARY | 2024-02-17 13:57 | XMS_ITS | Encounter Summary ---
Author Organization [facility] Address [address] [place] [address] Phone Care Team Providers Care Guardian Family Member Name Role Phone Kit Arriola MD Primary Care Provider [phone] Reason for Visit * Reason Comments Routine Visit Encounter Details Date Type Department Care Team (Late st Contact Info) Description 02/01/2022 3:15 PM HACKSAW INSPECTOR Office Visit [facility] Obstetrics and Gynecology [address] [facility] [address] [place] [address] Beth Damian MD [address] [facility] [phone] [place] [address] Supervision of other normal , [...] on file Legal Sex Female 5:56 PM HACKSAW INSPECTOR Gender Identity Female 07/16/2022 10:05 AM CDT Sexual Orientation Straight 07/16/2022 10 :05 AM CDT documented as of this encounter Last Filed Vital Signs Vital Sign Reading Time Taken Comments Blood Pressure 111/77 02/01/2022 3:30 PM HACKSAW INSPECTOR Pulse - - Temperature - - Respiratory Rate - - Oxygen Saturation - - Inhaled Oxygen Concentration - - Weight 83.3 kg (183 lb 9.6 oz) 02/01/2022 3:30 P M HACKSAW INSPECTOR Height 165.1 cm (5' 5 ) 02/01/2022 3:30 PM HACKSAW INSPECTOR Body Mass Index 30.55 02/01/2022 3:30 PM HACKSAW INSPECTOR documented in this encounter Progress Notes * Beth Damian MD - 02/01/2022 3:15 PM CST Back is sore, reviewed stretching and massage. She will let us know if she needs to start PT or chiropractor. SAW INSPECTOR documented in this encounter Plan of Treatment Not on file documented as of this encounter Procedures Procedure Name Priority Date/Time Associated Diagnosis Comments GTT 50GM 1HR GESTATIONAL SCREEN Routine 02/08/2022 10:11 AM HACKSAW INSPECTOR Supervision of other normal , antepartum RPR Routine 02/08/2022 10:11 AM HACKSAW INSPECTOR Supervision of other normal , antepartum CBC WITHOUT DIFFERENTIAL Routine 02/08/2022 10:11 AM HACKSAW INSPECTOR Supervision of other normal , antepartum documented in this encounter Results * RPR Blood (02/08/2022 10:11 AM HACKSAW INSPECTOR) RPR NON-REACTIV E NON-REACTI VE [facility] Blood 02/08/2022 10:1 1 AM HACKSAW INSPECTOR 02/08/2022 10:12 AM HACKSAW INSPECTOR us Beth Damian MD LAB MICROBIOLO GY - GENERAL ORDERABLES Final Result [facility] [address] [place] [address] * Glucose tolerance testing 50 gram gestational screen (02/08/2022 10:11 AM HACKSAW INSPECTOR) Glucose, gestational screen, pl 114 <140 mg/dL [facility] Blood 02/08/2022 10:1 1 AM HACKSAW INSPECTOR 02/08/2022 10:12 AM HACKSAW INSPECTOR us Beth Hina Damian MD LAB BLOOD ORDE RABLES Final Result Performing Organization Address [facility]/ZIP Co de Phone Number [facility] [address] [place] [address] * (ABNORMAL) CBC without differential (02/08/2022 10:11 AM HACKSAW INSPECTOR) WBC 12.5(H) 3.8 - 10.8 Thousand/uL [facility] RBC, POC 3.50(L) 3.80 - 5.10 Million/uL [facility] Hgb 10.6(L) 11.7 - 15.5 g/dL [facility] Hct 31.4(L) 35.0 - 45.0 % [facility] MCV 89.7 80.0 - 100.0 fL [facility] MCH 30.3 27.0 - 33.0 pg [facility] MCHC 33.8 32.0 - 36.0 g/dL [facility] Rdw 12.9 11.0 - 15.0 % [facility] Platelets 342 140 - 400 Thousand/uL [facility] MPV 11.0 7.5 - 12.5 fL [facility] Blood 02/08/2022 10:1 1 AM HACKSAW INSPECTOR 02/08/2022 10:12 AM HACKSAW INSPECTOR us Beth Hina Damian MD LAB BLOOD ORDE RABLES Final Result Performing Organization Address City/[facility]/ZIP Co de Phone Number [facility] [address] [place] [address] documented in this encounter Visit Diagnoses Diagnosis Supervision of other normal , antepartum- Primary documented in this encounter Care Teams Guardian Family Member Relationship Specialty Start Date End Date Kit Arriola MD [address] [address] PCP - General Emergency Medicine 12/19/18 documented as of this encounter
--- OUTSIDE RECORDS SUMMARY | 2024-02-17 13:57 | XMS_ITS | Encounter Summary ---
Author Organization [facility] Healthcare Address [address] [place] [address] Care Team Providers Care Access Services Representative Name Role Phone Kit Arriola MD Primary Care Provider [phone] Reason for Referral * Diagnostic Imaging (Routine) - Closed Specialty Diagnoses / Procedures Referred By Contac t Referred To Contact Diagnoses Encounter for follow-up ultrasound of anatomy Procedures US Ob Limited Janice Jordan MD [facility] [address] Phone: tel: fax: [facility] (All Locations) Referral ID Status Reason Start Date Expiration Date Visits Re quested Visits Authorized [id number] Closed 01/02/2022 02/04/2022 1 99 E ROOM LABORER Reason for Visit * Diagnostic Imaging (Routine) - Closed Specialty Diagnoses / Procedures Referred By Kimberley t Referred To Contact Diagnoses Encounter for follow-up ultrasound of anatomy Procedures US Ob Limited Janice Jordan MD [facility] [address] Phone: tel: fax: [facility] (All Locations) Referral ID Status Reason Start Date Expiration Date Visits Re quested Visits Authorized [id number] Closed 01/02/2022 02/04/2022 1 99 Encounter Details Date Type Department Care Team (Latest Contact Info) Description 01/18/2022 9:24 AM BRINE ROOM LABORER - 01/18/2022 11:59 PM BRINE ROOM LABORER Hospital Encounter [facility]ound [address] [facility], 7th Floor, [address] [place] [address] Encounter for follow-up ultrasound of anatomy Discharge Disposition: Discharge to home or self [...] on file Legal Sex Female 5:56 PM BRINE ROOM LABORER Gender Identity Female 07/16/2022 10:05 AM [...] Priority Date/Time Associated Diagnosis Comments US OB LIMITED Schedule Routine, Read Routine (OP Routine) 01/18/2022 9:24 AM BRINE ROOM LABORER Encounter for follow-up ultrasound of anatomy documented in this encounter Results * US Ob Limited (01/18/2022 9:24 AM BRINE ROOM LABORER) Fetus# Fetus1 VIEWPOINT Placenta Details posterior, Previa-no, no placental masses VIEWPOINT Presentation Vertex VIEWPOINT Anatomical Region Laterality Modality Abdomen N/A Ultrasound 01/18/2022 9:26 AM BRINE ROOM LABORER Impressions 01/18/2022 10:23 AM BRINE ROOM LABORER IUP - 22w 4dThe anomaly screen is completed as above.S/P normal echo.The placenta has retracted from the internal os and is no longer low-lying. Narrative Procedure Note Talha Peralta MD - 01/18/2022 IMPRESSION: IUP - 22w 4dThe anomaly screen is completed as above.S/P normal fetalecho.The placenta has retracted from the internal os and is no longerlow-lying. us Janice Jordan MD IMG OB US PROCEDURES Final Result documented in this encounter Visit Diagnoses Diagnosis Encounter for follow-up ultrasound of anatomy documented in this encounter Care Teams Access Services Representative Relationship Specialty Start Date End Date Kit Arriola MD [address] [address] PCP - General Emergency Medicine 12/19/18 documented as of this encounter
--- OUTSIDE RECORDS SUMMARY | 2024-02-17 13:57 | XMS_ITS | Encounter Summary ---
Author Organization [facility] Address [address] [place] [address] Phone Care Team Providers Care Emergency Medical Service Manager Name Role Phone Kit Arriola MD Primary Care Provider Reason for Visit * Reason Comments Routine Visit Encounter Details Date Type Department Care Team (Late st Contact Info) Description 11/15/2021 11:15 AM CDT Office Visit [facility] [address] [facility] 7th [address] [place] [address] Sumi Castillo MD [id number] [place] [address] Supervision of other normal , antepartum (Primary Dx); Need for prophylactic vaccination and inoculation against influenza; Urinary tract infection in mother during first trimester of Social History Tobacco Use Types Packs/Day Years [...] on file Legal Sex Female 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 Gender Identity Female 07/16/2022 10:05 AM CDT Sexual Orientation Straight 07/16/2022 10 :05 AM CDT documented as of this encounter Last Filed Vital Signs Vital Sign Reading Time Taken Comments Blood Pressure 114/81 11/15/2021 11:30 AM CDT Pulse - - Temperature - - Respiratory Rate - - Oxygen Saturation - - Inhaled Oxygen Concentration - - Weight 80.4 kg (177 lb 3.2 oz) 11/15/2021 11:30 AM CDT Height 165.1 cm (5' 5 ) 11/15/2021 11:30 AM CDT Body Mass Index 29.49 11/15/2021 11:30 AM CDT documented in this encounter Progress Notes * Sumi Castillo MD - 11/15/2021 11:15 AM CDT EOB - Denies VB, ctx - Nausea with vomiting 3-4x per day, getting better over the past week, would like to just continueZofran - At OSH was prescribed a course of abx for asymptomatic bacteriuria, pt thinks maybe Macrobid - Never any urinary sxs, none today - For negative JOSE L today - Continuing PNV RTO 4 weeks Neli Gates, MS4 I have reviewed the above history, physical exam, and assessment/plan. I have seen and examined thepatient and agree with the plan. documented in this encounter Plan of Treatment Not on file documented as of this encounter Procedures Procedure Name Priority Date/Time Associated Diagnosis Comments URINALYSIS AND REFLEX TO MICROSCOPIC Routine 11/15/2021 12:10 PM CDT Urinary tract infection in mother during first trimester of URINE CULTURE Routine 11/15/2021 12:10 PM CDT Urinary tract infection in mother during first trimester of ABO/RH Routine 11/03/2021 CBC WITHOUT DIFFERENTIAL Routine 11/03/2021 ANTIBODY SCREEN Routine 11/03/2021 documented in this encounter Results * (ABNORMAL) Urinalysis reflex to microscopic (11/15/2021 12:10 PM CDT) Color, ur DARK YELLOW YELLOW [facility] Appearance, ur CLOUDY(A) CLEAR [facility] Specific gravity 1.027 1.001 - 1.035 [facility] pH, ur 5.5 5.0 - 8.0 [facility] Glucose, ur NEGATIVE NEGATIVE [facility] Bilirubin, ur NEGATIVE NEGATIVE [facility] Ketones, ur 2+(A) NEGATIVE [facility] Blood, ur NEGATIVE NEGATIVE [facility] Protein, ur, quant TRACE(A) NEGATIVE [facility] Nitrites, ur NEGATIVE NEGATIVE [facility] Leukocyte esterase, ur TRACE(A) NEGATIVE [facility] WBC, ur 0-5 < OR = 5 /HPF [facility] RBC, ur NONE SEEN < OR = 2 /HPF [facility] Epithelial cells, squamous, ur 20-40(A) < OR = 5 /HPF [facility] Bacteria, ur, quant FEW(A) NONE SEEN /HPF [facility] Calcium oxalate crystals, ur MODERATE(A) NONE OR FEW /HPF [facility] Hyaline cast 6-10(A) NONE SEEN /LPF [facility] Yeast, ur NONE SEEN NONE SEEN /HPF [facility] Urine 11/15/2021 12:1 0 PM CDT 11/16/2021 7:59 AM CDT us Sumi Castillo MD LAB URINE ORDERABLES Final Re sult [facility] [address] [place] [address] * Urine culture Urine, clean voided (11/15/2021 12:10 PM CDT) Urine culture [facility] Comment: ??CULTURE, URINE, ROUTINE ?Micro Number: ?[id number] ??Test Status: ? Final ??Specimen Source: ?? Urine ??Specimen Quality: ??Adequate ??Result: ?No Growth Urine, clean voided 11/15/2021 12:10 PM CDT 11/16/2021 12:53 AM CDT us Sumi Castillo MD LAB MICROBIOLOGY - GENERAL OR DERABLES Final Result Performing Organization Address City/State/[facility] Co de Phone Number [facility] [address] [place] [address] * ABO/Rh (11/03/2021) SCRIBED ABO/Rh A+ Blood Janice Jordan MD LAB BLOOD BANK TEST O RDERABLES Final Result * CBC without differential (11/03/2021) SCRIBED Platelets 389 k/cumm Blood us Janice Jordan MD LAB BLOOD ORDERABLES Final Result * Antibody screen (11/03/2021) SCRIBED Indirect Antiglobulin negative Blood Janice Jordan MD LAB BLOOD BANK TEST O RDERABLES Final Result documented in this encounter Visit Diagnoses Diagnosis Supervision of other normal , antepartum- Primary Need for prophylactic vaccination and inoculation against influenza Urinary tract infection in mother during first trimester of documented in this encounter Orders Immunization/Injection Count Last Ordered Date First Ordered Date FLU VACCINE MDCK QUAD PF 2Y+ IM - FLUCELVAX 1 11/15/2021 documented in this encounter Care Teams Emergency Medical Service Manager Relationship Specialty Start Date End Date Kit Arriola MD [address] [address] PCP - General Emergency Medicine 12/19/18 documented as of this encounter
--- OUTSIDE RECORDS SUMMARY | 2024-02-17 13:57 | XMS_ITS | Encounter Summary ---
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
--- OUTSIDE RECORDS SUMMARY | 2024-02-17 13:57 | XMS_ITS | Encounter Summary ---
Author Organization [facility] Address [address] [place] [address] Phone Care Team Providers Care Seed Cone Picker Name Role Phone Kit Arriola MD Primary Care Provider [phone] Encounter Details Date Type Department Care Team (Late st Contact Info) Description 10/26/2021 Orders Only [facility] Obstetrics and Gynecology [address] [facility] 7th Floor [address] [place] [address] Janice Jordan MD [address] 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 Gender Identity Female 07/16/2022 10:05 AM CDT Sexual Orientation Straight 07/16/2022 10 :05 AM CDT documented as of this encounter Plan of Treatment Not on file documented as of this encounter Procedures Procedure Name Priority Date/Time Associated Diagnosis Comments HIV 1/2 ANTIBODY PLUS P24 ANTIGEN Routine 11/03/2021 9:54 AM CDT Supervision of other normal , antepartum HEPATITIS C ANTIBODY Routine 11/03/2021 9:54 AM CDT Supervision of other normal , antepartum OBSTETRIC PANEL Routine 11/03/2021 9:54 AM CDT Supervision of other normal , antepartum VARICELLA ZOSTER ANTIBODY, IGG Routine 11/03/2021 9:54 AM CDT Supervision of other normal , antepartum documented in this encounter Results * HIV 1/2 Antibody plus p24 Antigen Blood (11/03/2021 9:54 AM CDT) HIV Ag/Ab, 4th gen NON-REACT SHIMA NON-REACT SHIMA [facility] Comment: HIV-1 antigen and HIV-1/HIV-2 antibodies were [...] ?? For additional information please refer to http://education.[employer].Knodium/faq/WFL965 (This link is being provided for informational/ educational purposes only.) The performance of this assay has not been clinically validated in patients less than 2 years old. Blood 11/03/2021 9:54 AM CDT 11/03/2021 9:56 AM CDT Narrative [facility] - 11/07/2021 9:34 PM CDT FASTING:NO FASTING: NO us Janice Jordan MD LAB MICROBIOLOGY - GE NERAL ORDERABLES Final Result [facility] [address] [place] [address] * Obstetric panel (11/03/2021 9:54 AM CDT) WBC 7.9 3.8 - 10.8 Thousand /uL [facility] RBC, POC 4.46 3.80 - 5.10 Million/ uL [facility] Hgb 13.1 11.7 - 15.5 g/dL [facility] Hct 39.1 35.0 - 45.0 % [facility] MCV 87.7 80.0 - 100.0 fL [facility] MCH 29.4 27.0 - 33.0 pg [facility] MCHC 33.5 32.0 - 36.0 g/dL [facility] Rdw 13.3 11.0 - 15.0 % [facility] Platelets 389 140 - 400 Thousand /uL [facility] MPV 10.1 7.5 - 12.5 fL [facility] Neutrophils, abs 5,048 1,500 - 7,800 cells/uL [facility] Lymphocytes, abs 1,999 850 - 3,900 cells/uL [facility] Monocyte abs 640 200 - 950 cells/uL [facility] Eosinophils, abs 174 15 - 500 cells/uL [facility] Basophils, abs 40 0 - 200 cells/uL [facility] Neutrophils 63.9 % [facility] Lymphocyte pct 25.3 % [facility] Monocytes 8.1 % [facility] Eosinophils 2.2 % [facility] Basophils 0.5 % [facility] Antibody screen NO ANTIBODIES DETECTED [facility] Comment: ?Reference range ?No antibodies detected This assay is a screening test for the detection of red blood cell antibodies. The test is not to be used for pretransfusion screening or for the medical management of an alloimmunized . ? ABO typing A [facility] Rho(D) typing RH(D) POSITIVE [facility] Comment: For additional information, please refer to http://education.Teabox/faq/URV500 (This link is being provided for informational/ educational purposes only.) RPR NON-REACTIVE NON-REAC TIVE [facility] HepBsAg NON-REACTIVE NON-REAC TIVE [facility] Rubella IgG 3.73 Index [facility] Comment: ?Index ?Interpretation ?----- ?<0.90 ?Not consistent with immunity ?0.90-0.99 ?Equivocal ?> or = 1.00 ?Consistent with immunity The presence of rubella IgG antibody suggests immunization or past or current infection with rubella virus. Blood 11/03/2021 9:54 AM CDT 11/03/2021 9:56 AM CDT Narrative [facility] - 11/07/2021 9:34 PM CDT FASTING:NO FASTING: NO Janice Jordan MD LAB BLOOD ORDERABLES Final Result [facility] [address] [place] [address] * Varicella Zoster IgG antibody Blood (11/03/2021 9:54 AM CDT) [facility] VZV IgG 873.50 index [facility] Comment: ? Index ? Interpretation ? --------- ?<135.00 ?Negative - Antibody not detected ?135.00 - 164.99 ?Equivocal ?> or = 165.00 ?Positive - Antibody detected ?A positive result indicates that the patient ?has antibody to VZV but does not differentiate ?between an active or past infection. ?The clinical diagnosis must be interpreted in ?conjunction with the clinical signs and symptoms of ?the patient. This assay reliably measures immunity ?due to previous infection but may not be ?sensitive enough to detect antibodies induced by ?vaccination. Thus, a negative result in a vaccinated ?individual does not necessarily indicate ?susceptibility to VZV infection. A more sensitive ?test for vaccination-induced immunity is Varicella ?Zoster Virus Antibody Immunity Screen, ACIF. Blood 11/03/2021 9:54 AM CDT 11/03/2021 9:56 AM CDT Narrative [facility] - 11/07/2021 9:34 PM CDT FASTING:NO FASTING: NO Janice Jordan MD LAB MICROBIOLOGY - [facility] ORDERABLES Final Result [facility] [address] [place] [address] * Hepatitis C antibody (11/03/2021 9:54 AM CDT) Hep C Ab NON-REACTI VE NON-REACT SHIMA [facility] SIGNAL TO CUT-OFF 0.01 <1.00 [facility] Comment: HCV antibody was non-reactive. There is no laboratory evidence of HCV infection. In most cases, no further action is required. However, if recent HCV exposure is suspected, a test for HCV RNA (test code 90183) is suggested. For additional information please refer to http://education.SquareOne/faq/HOX96z9 (This link is being provided for informational/ educational purposes only.) Blood 11/03/2021 9:54 AM CDT 11/03/2021 9:56 AM CDT Narrative [facility] - 11/07/2021 9:34 PM CDT FASTING:NO FASTING: NO us Janice Jordan MD LAB MICROBIOLOGY - NERAL ORDERABLES Final Result [facility] [address] [place] [address] documented in this encounter Visit Diagnoses Diagnosis Supervision of other normal , antepartum- Primary documented in this encounter Orders Lab Orders Without Results Count Last Ordered D ate First Ordered Date ABO/RH 10/26/2021 ANTIBODY SCREEN 10/26/2021 documented in this encounter Care Teams Seed Cone Picker Relationship Specialty Start Date End Date Kit Arriola MD [address] [address] PCP - General Emergency Medicine 12/19/18 documented as of this encounter
--- OUTSIDE RECORDS SUMMARY | 2024-02-17 13:58 | XMS_ITS | Encounter Summary ---
Author Organization [facility] Healthcare Address [address] [place] [address] Care Team Providers Care Technical Support Professional Name Role Phone Unavailable Primary Care Provider Unavailabl e Encounter Details Date Type Department Care Team (Latest Contact Info) Description 06/30/2013 9:29 PM CDT - 07/01/2013 1:14 AM CDT Hospital Encounter [facility] Louann Hall MD [address] [place] [address] Acute pyelonephritis without medullary necrosis Social History Tobacco Use Types Packs/Day Years Used Date Smoking Tobacco: Never Assessed Comments Unknown Sex and Gender Information Value Date Recorded Sex Assigned at Not on file Legal Sex Female 5:56 PM [employer] Gender Identity Female 07/16/2022 10:05 AM CDT Sexual Orientation Straight 07/16/2022 10 :05 AM CDT documented as of this encounter Last Filed Vital Signs Vital Sign Reading Time Taken Comments Blood Pressure 105/61 06/30/2013 9:35 PM CDT Pulse 85 06/30/2013 9:35 PM CDT Temperature 36.8 ??C (98.3 ??F) 06/30/2013 9:35 PM CD T Respiratory Rate - - Oxygen Saturation 100% 06/30/2013 9:35 PM CDT Inhaled Oxygen Concentration - - Weight 56.7 kg (125 lb) 06/30/2013 9:35 PM CDT Height 165.1 cm (5' 5 ) 06/30/2013 9:35 PM CDT Body Mass Index 20.8 06/30/2013 9:35 PM CDT documented in this encounter Plan of Treatment Not on file documented as of this encounter Procedures Procedure Name Priority Date/Time Associated Diagnosis Comments CBC WITH AUTO DIFFERENTIAL Routine 06/30/2013 10:02 PM CDT LIPASE Routine 06/30/2013 10:02 PM CDT AMYLASE Routine 06/30/2013 10:02 PM CDT COMPREHENSIVE METABOLIC PANEL Routine 06/30/2013 10:02 PM CDT MICROBIOLOGY SPECIMEN REPORT (CONVERTED) Routine 06/30/2013 9:43 PM CDT URINALYSIS AND REFLEX TO MICROSCOPIC AND CULTURE Routine 06/30/2013 9:[address] ABDOMEN PELVIS WO CONTRAST Routine 06/30/2013 12:00 AM CDT documented in this encounter Results * Lipase (06/30/2013 10:02 PM CDT) Lipase 21 13 - 60 U/L 06/30/2013 10:27 PM CDT [facility] HISTORICAL RESULTS 06/30/2013 10:0 2 PM CDT 06/30/2013 10:06 PM CDT Osmin Browningman LAB BLOOD ORDERABLES Miryam l Result [facility] HISTORICAL RESULTS * Comprehensive metabolic panel (06/30/2013 10:02 PM CDT) Sodium 135 135 - 145 mmol/L 06/30/2013 10:27 PM CDT [facility] HISTORICAL RESULTS Potassium 3.4 3.3 - 5.1 mmol/L 06/30/2013 10:27 PM CDT [facility] HISTORICAL RESULTS Chloride 97 96 - 108 mmol/L 06/30/2013 10:27 PM CDT [facility] HISTORICAL RESULTS Carbon Dioxide 26 22 - 32 mmol/L Anion Gap 12 7 - 16 Glucose 107 70 - 110 mg/dL BUN 9 6 - 20 mg/dL Creatinine 0.9 0.5 - 1.1 mg/dL Kidney Disease Stage 84 mL/MIN Comment: NOTE; ??The GFR is an estimated value using the creatinine, sex, age, and race of the patient. THE ESTIMATED GFR IS VALIDATED FOR AGES 18-70 YEARS STAGE ?mL/Min ?DESCRIPTION ??1 ?90 mL/min or more ?Normal or elevated GFR ??2 ? 60-89 mL/min ?Mildly decreased GFR ??3 ? 30-59 mL/min ?Moderately decreased GFR ??4 ? 15-29 mL/min ?Severely decreased GFR ??5 ? <15 mL/min ? Kidney failure or on dialysis @ Calcium 9.4 8.6 - 10.2 mg/dL Total Protein 7.1 6.6 - 8.7 g/dL Albumin 4.1 3.5 - 5.2 g/dL Globulin 3.0 2.3 - 3.5 gm/dL Albumin/Globulin Ratio 1.4 1.1 - 1.8 06/30/2013 10:27 PM CDT [facility] HISTORICAL RESULTS Total Bilirubin 0.6 0.0 - 1.2 mg/dL 06/30/2013 10:27 PM T [facility] HISTORICAL RESULTS AST 20 0 - 32 U/L 06/30/2013 10:27 PM T [facility] HISTORICAL RESULTS ALT 17 0 - 33 U/L 06/30/2013 10:27 PM T [facility] HISTORICAL RESULTS Alkaline Phosphatase 58 35 - 104 U/L 06/30/2013 10:27 PM T [facility] HISTORICAL RESULTS 06/30/2013 10:0 2 PM CDT 06/30/2013 10:06 PM CDT Osmin Nascimento LAB BLOOD ORDERABLES Miryam l Result [facility] HISTORICAL RESULTS * (ABNORMAL) CBC with auto differential (06/30/2013 10:02 PM CDT) WBC 10.8(H) 4.6 - 10.2 x10 3/ul 06/30/2013 10:11 PM T [facility] HISTORICAL RESULTS RBC 4.18 3.76 - 4.80 x10 6/ul 06/30/2013 10:11 PM T [facility] HISTORICAL RESULTS Hemoglobin 12.6 11.0 - 15.0 g/dl 06/30/2013 10:11 PM T [facility] HISTORICAL RESULTS Hct 36.5 33.0 - 43.0 % 06/30/2013 10:11 PM T [facility] HISTORICAL RESULTS MCV 87.3 80.0 - 97.0 fl 06/30/2013 10:11 PM T [facility] HISTORICAL RESULTS MCH 30.1 27.0 - 31.2 pg MCHC 34.5 31.8 - 35.4 g/dl 06/30/2013 10:11 PM T [facility] HISTORICAL RESULTS RDW 12.9 11.6 - 14.8 % Plt Count 291 124 - 400 x10 3/ul MPV 9.5 7.4 - 10.4 fl Differential Method AUTOMATED DIFF --------- -- Neut % 77.7 37.0 - 85.0 % Immature Gran % 0.4 0.0 - 3.0 % Lymph % 15.6 5.0 - 45.0 % [place] % 5.4 3.0 - 15.0 % Eos % 0.5 0.0 - 7.0 % Baso % 0.4 0.0 - 2.0 % ABSOLUTE COUNTS ABSOLUTE COUNTS --------- -- Absolute Neuts (auto) 8.4 1.7 - 8.7 x10 3/ul Immature Gran # 0.0 0.0 - 0.3 x10 3/ul Absolute Lymphs (auto) 1.7 0.2 - 4.6 x10 3/ul Absolute Monos (auto) 0.6 0.1 - 1.5 x10 3/ul Absolute Eos (auto) 0.1 0.0 - 0.7 x10 3/ul Absolute Basos (auto) 0.0 0.0 - 0.2 x10 3/ul 06/30/2013 10:11 PM CDT [facility] HISTORICAL RESULTS 06/30/2013 10:0 2 PM CDT 06/30/2013 10:06 PM CDT Osmin Nascimento LAB BLOOD ORDERABLES Miryam l Result Performing Organization Address [facility] de Phone Number [facility] HISTORICAL RESULTS * Amylase (06/30/2013 10:02 PM CDT) [facility] Amylase 44 28 - 100 U/L 06/30/2013 10:27 PM CDT [facility] HISTORICAL RESULTS 06/30/2013 10:0 2 PM CDT 06/30/2013 10:06 PM CDT Osmin Nascimento LAB BLOOD ORDERABLES Miryam l Result Performing Organization Address [facility] de Phone Number [facility] HISTORICAL RESULTS * Microbiology Specimen Report (Converted) (06/30/2013 9:43 PM CDT) 06/30/2013 9:43 PM CDT 06/30/2013 9:51 PM CDT Narrative [facility] HISTORICAL RESULTS - 06/30/2013 9:43 PM CDT Microbiology Specimen Report (Converted) SPECIMEN [id number] ?? COLLECTED: 2013-06-30 21:43:00 JLS ?? REQ#: [id number] REQUESTING DR: Osmin Nascimento PA-C ?? SOURCE: URINE ?? SP DESC: CLEAN CATC --- PROCEDURE --- ?--- RESULT --- ?? CULTURE URINE ??(Final) ??- ??Performed at [facility] ?? * Organism 1 - ESCHERICHIA COLI [E COLI] ?* COLONY COUNT: >100,000 CFU/ml ?* SEE SUSCEPTIBILITY REPORT BELOW ?? * Organism 2 - MIXED GRAM POSITIVE ORGANISMS [MIXED GRAM] ?* COLONY COUNT: 10,000 CFU/ml ? [E COLI] ? M.I.C. ?RX AMOXICILLIN/CLAVULANIC ACID ?<=2 ? S AMPICILLIN ? <=2 ? S AMPICILLIN/SULBACTAM ? <=2 ? S CEFEPIME ? <=1 ? S CEFTRIAXONE ?<=1 ? S ERTAPENEM ?<=0.5 ? S GENTAMICIN ? <=1 ? S IMIPENEM ? <=0.25 ?S LEVOFLOXACIN ? <=0.12 ?S NITROFURANTOIN ? <=16 ?S PIPERACILLIN/TAZOBACTAM ?<=4 ? S TRIMETHOPRIM/SULFAMETHOXAZOLE ??<=20 ?S TOBRAMYCIN ? <=1 ? S ??S=Susceptible ?? I=Intermediate ?? S=Resistant ??SDD=Susceptible Dose Dependent ?? N/R=No Report ?[facility] =[facility] - [facility] ? [address] ? [place] [address] ? Kit Stark MD Procedure Note 04/27/2018 Microbiology Specimen Report (Converted) SPECIMEN [id number] COLLECTED: 2013-06-30 21:43:00 S REQ#:[id number] REQUESTING DR: Osmin Nascimento PA-C SOURCE: URINE SP DESC: CLEANCATC --- PROCEDURE --- --- RESULT --- CULTURE URINE (Final) - Performed at [facility] * Organism 1 - ESCHERICHIA COLI [E COLI] * COLONY COUNT: >100,000 CFU/ml * SEE SUSCEPTIBILITY REPORT BELOW * Organism 2 - MIXED GRAM POSITIVE ORGANISMS [MIXED GRAM] * COLONY COUNT: 10,000 CFU/ml [E COLI] M.I.C. RX AMOXICILLIN/CLAVULANIC ACID <=2 S AMPICILLIN <=2 S AMPICILLIN/SULBACTAM <=2 S CEFEPIME <=1 S CEFTRIAXONE <=1 S ERTAPENEM <=0.5 S GENTAMICIN <=1 S IMIPENEM <=0.25 S LEVOFLOXACIN <=0.12 S NITROFURANTOIN <=16 S PIPERACILLIN/TAZOBACTAM <=4 S TRIMETHOPRIM/SULFAMETHOXAZOLE <=20 S TOBRAMYCIN <=1 S S=Susceptible I=Intermediate S=Resistant SDD=Susceptible Dose Dependent N/R=No Report [facility] =[facility] - [place] [id number] [place] [address] Kit Stark MD us Osmin Nascimento LAB BLOOD ORDERABLES Miryam l Result [facility] HISTORICAL RESULTS * (ABNORMAL) Urinalysis reflex to microscopic and culture (06/30/2013 9:43 PM [facility]) Ur Collection Type CLEAN CATCH Ur Culture Indicated? C&S INDICATED Comment:Culture report to salma mosley. Urine Color STRAW YELLOW Urine Clarity CLOUDY CLEAR Urine Glucose (UA) NORMAL NORMAL mg/dL Urine Bilirubin NEGATIVE NEGATIVE mg/dl Urine Ketones NEGATIVE NEGATIVE mg/dL Ur Specific Wenden 1.012 1.005 - 1.025 Urine Blood 0.2(H) NEGATIVE mg/dl Urine pH 6.5 5.0 - 8.0 Urine Protein 30(H) NEGATIVE mg/dL Urine Urobilinogen NORMAL NORMAL mg/dL Urine Nitrite NEGATIVE NEGATIVE Ur Leukocyte Esterase 500(H) NEGATIVE Stephanie/ul Ur Microscopic Review Indicated or Ordered Urine RBC 34 0 - 2 /HPF Urine WBC 356 0 - 2 /HPF Urine WBC Clumps Mod /HPF 06/30/2013 10:02 PM CDT [facility] HISTORICAL RESULTS Urine Mucus Mod /LPF 06/30/2013 10:02 PM CDT [facility] HISTORICAL RESULTS Ur Squamous Epith Cells Rare /HPF 06/30/2013 10:02 PM CDT [facility] HISTORICAL RESULTS 06/30/2013 9:43 PM CDT 06/30/2013 9:51 PM CDT Narrative [facility] HISTORICAL RESULTS - 06/30/2013 10:02 PM CDT Collected By JLS ?? [id number] ?? us Osmin Nascimento LAB MICROBIOLOGY - GENERA L ORDERABLES Final Result [facility] HISTORICAL RESULTS * CT Abdomen Pelvis WO Contrast (06/30/2013 12:00 AM CDT) Anatomical Region Laterality Modality Body N/A Computed Tomogra phy 06/30/2013 Impressions 07/01/2013 12:08 AM CDT ??No obstructing urinary tract calculus. ??1 mm nonobstructing stone in the mid right kidney. ??There is a very mild degree of right sided pelvicaliectasis and a recently passed or very small occult right-sided calculus could have this appearance. ??Correlation with urinalysis recommended. Subtle inflammatory stranding in the fat adjacent to the posterior margin of the ascending colon just beneath the lower pole of the right kidney. ??This may reflect pelvic appendagitis. ??The appendix is normal. Colonic diverticula with no acute diverticulitis. THIS IS AN ELECTRONICALLY VERIFIED REPORT 07/01/2013 12:04 AM: ??Jim Durant M.D. Jim Durant M.D. RN:rn 12:04 AM 12:04 AM MON [EOD] Narrative 07/01/2013 12:[address] ABDOMEN PELVIS WITHOUT CONTRAST. HISTORY: ??Right flank pain. FINDINGS: ??Noncontrast CT of the abdomen and pelvis was performed, using urinary tract stone protocol. ??There is a previous contrast-enhanced CT study from February 15, 2011. There is no radiodense obstructing urinary tract calculus. ??There is a very mild degree of right pelvicaliectasis. ??A recently passed stone or very small occult or noncalcified stone could possibly have this appearance. ??There is an area of subtle inflammatory stranding located just beneath the lower pole the right kidney and just posterior to the adjacent ascending colon. ??This may reflect epiploic appendagitis. ??The appendix is normal. ??There is no bowel obstruction or free air. ??There are colonic diverticula with no acute diverticulitis. ??Uterus and adnexal structures are unremarkable. ??Noncontrast liver, spleen, gallbladder, pancreas and adrenal glands are unremarkable. ?? Lung bases are clear. Procedure Note Provider, MD Kenneth - 06/22/2020 CT ABDOMEN PELVIS WITHOUT CONTRAST. HISTORY: Right flank pain. FINDINGS: Noncontrast CT of the abdomen and pelvis was performed, using urinary tract stone protocol. There is a previous contrast-enhanced CTstudy from February 15, 2011. There is no radiodense obstructing urinary tract calculus. There is roc mild degree of right pelvicaliectasis. A recently passed stone or verysmall occult or noncalcified stone could possibly have this appearance. Thereis an area of subtle inflammatory stranding located just beneath the lower polethe right kidney and just posterior to the adjacent ascending colon. This may reflect epiploic appendagitis. The appendix is normal. There is no bowel obstruction or free air. There are colonic diverticula with no acute diverticulitis. Uterus and adnexal structures are unremarkable.Noncontrast liver, spleen, gallbladder, pancreas and adrenal glands are unremarkable. Lung bases are clear. IMPRESSION: No obstructing urinary tract calculus. 1 mm nonobstructingstone in the mid right kidney. There is a very mild degree of right sided pelvicaliectasis and a recently passed or very small occult right-sided calculus could have this appearance. Correlation with urinalysisrecommended. Subtle inflammatory stranding in the fat adjacent to the posterior marginof the ascending colon just beneath the lower pole of the right kidney. Thismay reflect pelvic appendagitis. The appendix is normal. Colonic diverticula with no acute diverticulitis. THIS IS AN ELECTRONICALLY VERIFIED REPORT 07/01/2013 12:04 AM: Jim Durant M.D. Jim Durant M.D. RN:rn 12:04 AM 12:04 AM MON [EOD] Osmin Nascimento IMG CT PROCEDURES Final R esult documented in this encounter Visit Diagnoses Diagnosis Acute pyelonephritis without medullary necrosis documented in this encounter
--- OUTSIDE RECORDS SUMMARY | 2024-02-17 13:58 | XMS_ITS | Encounter Summary ---
Author Organization [facility] Healthcare Address [address] [place] [address] Care Team Providers Care Nurse Paralegal Name Role Phone Unavailable Primary Care Provider Unavailabl e Encounter Details Date Type Department Care Team (Latest Contact Info) Description 04/09/2015 7:01 AM OSTEOPATHIC NEUROLOGIST - 04/09/2015 10:05 AM OSTEOPATHIC NEUROLOGIST Hospital Encounter [facility] Leonardo Carias MD [address] [place] [address] Calculus of gallbladder and bile duct w/o cholecystitis or obstruction; Urinary tract infection Social History Tobacco Use Types Packs/Day Years Used Date Smoking Tobacco: Never Assessed Comments Unknown Sex and Gender Information Value Date Recorded Sex Assigned at Not on file Legal Sex Female 5:56 PM OSTEOPATHIC NEUROLOGIST Gender Identity Female 07/16/2022 10:05 AM CDT Sexual Orientation Straight 07/16/2022 10 :05 AM CDT documented as of this encounter Last Filed Vital Signs Vital Sign Reading Time Taken Comments Blood Pressure 112/69 04/09/2015 7:03 AM OSTEOPATHIC NEUROLOGIST Pulse 108 04/09/2015 7:03 AM OSTEOPATHIC NEUROLOGIST Temperature 37.3 ??C (99.2 ??F) 04/09/2015 7:03 AM CS T Respiratory Rate - - Oxygen Saturation 97% 04/09/2015 7:03 AM OSTEOPATHIC NEUROLOGIST Inhaled Oxygen Concentration - - Weight 63.5 kg (140 lb) 04/09/2015 7:03 AM OSTEOPATHIC NEUROLOGIST Height 165.1 cm (5' 5 ) 04/09/2015 7:03 AM OSTEOPATHIC NEUROLOGIST Body Mass Index 23.3 04/09/2015 7:03 AM OSTEOPATHIC NEUROLOGIST documented in this encounter Plan of Treatment Not on file documented as of this encounter Procedures Procedure Name Priority Date/Time Associated Diagnosis Comments CBC WITH AUTO DIFFERENTIAL Routine 04/09/2015 7:45 AM OSTEOPATHIC NEUROLOGIST PROTIME-INR Routine 04/09/2015 7:45 AM OSTEOPATHIC NEUROLOGIST LIPASE Routine 04/09/2015 7:45 AM OSTEOPATHIC NEUROLOGIST COMPREHENSIVE METABOLIC PANEL Routine 04/09/2015 7:45 AM OSTEOPATHIC NEUROLOGIST US ABDOMEN LIMITED Routine 04/09/2015 7: 34 AM OSTEOPATHIC NEUROLOGIST MICROBIOLOGY SPECIMEN REPORT (CONVERTED) Routine 04/09/2015 7:05 AM OSTEOPATHIC NEUROLOGIST URINALYSIS AND REFLEX TO MICROSCOPIC AND CULTURE Routine 04/09/2015 7:05 AM OSTEOPATHIC NEUROLOGIST documented in this encounter Results * Protime-INR (04/09/2015 7:45 AM OSTEOPATHIC NEUROLOGIST) [facility] PT 13.0 11.8 - 14.5 SECONDS 04/09/2015 8:06 AM OSTEOPATHIC NEUROLOGIST [facility] HISTORICAL RESULTS Comment:New Reference Range in use at [facility] 03/11/2015 INR 0.99 0.01 - 5.99 04/09/2015 8:06 AM OSTEOPATHIC NEUROLOGIST [facility] HISTORICAL RESULTS Comment: Recommended Therapeutic range for Oral Anticoagulant Therapy No anti-coagulation therapy ? Normal Range: ?0.8-1.4 Anti-coagulation therapy ? Low intensity therapy ?2.0-3.0 ? High intensity therapy ?? 2.5-3.5 Critical Value ? Greater than or equal to 6.0 Patients should be monitored for serious bleeding. ?? 04/09/2015 7:45 AM OSTEOPATHIC NEUROLOGIST 04/09/2015 7:51 AM OSTEOPATHIC NEUROLOGIST Leonardo Carias MD LAB BLOOD ORDERABLES Miryam l Result [facility] HISTORICAL RESULTS * Lipase (04/09/2015 7:45 AM OSTEOPATHIC NEUROLOGIST) Lipase 30 13 - 60 U/L 04/09/2015 7:45 AM OSTEOPATHIC NEUROLOGIST 04/09/2015 7:51 AM OSTEOPATHIC NEUROLOGIST Leonardo Carias MD LAB BLOOD ORDERABLES Miryam l Result [facility] HISTORICAL RESULTS * (ABNORMAL) Comprehensive metabolic panel (04/09/2015 7:45 AM OSTEOPATHIC NEUROLOGIST) Sodium 139 135 - 145 mmol/L Potassium 4.0 3.3 - 5.1 mmol/L Chloride 103 96 - 108 mmol/L Carbon Dioxide 24 22 - 32 mmol/L Anion Gap 12 7 - 16 Glucose 98 70 - 100 mg/dL BUN 19 6 - 20 mg/dL Creatinine 0.6 0.5 - 1.1 mg/dL Comment: NOTE: Estimated GFR (Cockroft-Gault) will NOT be calculated unless patient Height and Weight were entered. Also, Kidney Disease Stage (GFR) and Estimated GFR (Cockroft-Gault) will NOT be calculated if Creatinine result is <0.2. Kidney Disease Stage > 90 mL/MIN Comment: NOTE; ??The GFR is an [...] ? Kidney failure or on dialysis @ Est GFR (Cockcroft-G) 137 ml/MIN Calcium 8.9 8.6 - 10.0 mg/dL Total Protein 7.0 6.4 - 8.3 g/dL Albumin 4.1 3.5 - 5.2 g/dL Globulin 2.9 2.3 - 3.5 gm/dL Albumin/Globulin Ratio 1.4 1.1 - 1.8 Total Bilirubin 0.4 0.0 - 1.2 mg/dL AST 30 0 - 32 U/L ALT 49(H) 0 - 33 U/L Alkaline Phosphatase 92 35 - 104 U/L 04/09/2015 7:45 AM OSTEOPATHIC NEUROLOGIST 04/09/2015 7:51 AM OSTEOPATHIC NEUROLOGIST us Leonardo Carias MD LAB BLOOD ORDERABLES Miryam melia Result [employer] [facility] HISTORICAL RESULTS * CBC with auto differential (04/09/2015 7:45 AM OSTEOPATHIC NEUROLOGIST) WBC 7.6 4.6 - 10.2 x10 3/ul 04/09/2015 8:09 AM OSTEOPATHIC NEUROLOGIST [facility] [facility] HISTORICAL RESULTS RBC 4.67 3.76 - 4.80 x10 6/ul 04/09/2015 8:09 AM [facility] [employer] HISTORICAL RESULTS Hemoglobin 12.6 11.0 - 15.0 g/dl 04/09/2015 8:09 AM OSTEOPATHIC NEUROLOGIST [employer] [facility] HISTORICAL RESULTS Hct 38.8 33.0 - 43.0 % 04/09/2015 8:09 AM OSTEOPATHIC NEUROLOGIST [employer] [facility] HISTORICAL RESULTS MCV 83.1 80.0 - 97.0 fl 04/09/2015 8:09 AM [facility] [employer] HISTORICAL RESULTS MCH 27.0 27.0 - 31.2 pg 04/09/2015 8:09 AM OSTEOPATHIC NEUROLOGIST [employer] HISTORICAL RESULTS MCHC 32.5 31.8 - 35.4 g/dl 04/09/2015 8:09 AM OSTEOPATHIC NEUROLOGIST [employer] HISTORICAL RESULTS RDW 14.4 11.6 - 14.8 % Plt Count 354 124 - 400 x10 3/ul 04/09/2015 8:09 AM OSTEOPATHIC NEUROLOGIST [employer] HISTORICAL RESULTS MPV 9.3 7.4 - 10.4 fl 04/09/2015 8:09 AM [facility] [employer] HISTORICAL RESULTS Differential Method AUTOMATED DIFF --------- -- Neut % 68.8 37.0 - 85.0 % Immature Gran % 0.3 0.0 - 3.0 % Lymph % 20.4 5.0 - 45.0 % Coleman % 8.6 3.0 - 15.0 % Eos % 1.4 0.0 - 7.0 % Baso % 0.5 0.0 - 2.0 % ABSOLUTE COUNTS ABSOLUTE COUNTS --------- -- Absolute Neuts (auto) 5.2 1.7 - 8.7 x10 3/ul Immature Gran # 0.0 0.0 - 0.3 x10 3/ul Absolute Lymphs (auto) 1.6 0.2 - 4.6 x10 3/ul Absolute Monos (auto) 0.7 0.1 - 1.5 x10 3/ul Absolute Eos (auto) 0.1 0.0 - 0.7 x10 3/ul Absolute Basos (auto) 0.0 0.0 - 0.2 x10 3/ul 04/09/2015 7:45 AM OSTEOPATHIC NEUROLOGIST 04/09/2015 7:51 AM OSTEOPATHIC NEUROLOGIST us Leonardo Carias MD LAB BLOOD ORDERABLES Miryam l Result [facility] HISTORICAL RESULTS * US Abdomen Limited (04/09/2015 7:34 AM OSTEOPATHIC NEUROLOGIST) Anatomical Region Laterality Modality Abdomen N/A Ultrasound 04/09/2015 7:34 AM OSTEOPATHIC NEUROLOGIST Impressions 04/09/2015 8:55 AM OSTEOPATHIC NEUROLOGIST ??Cholelithiasis including gallstone in the gallbladder neck, but without evidence of acute cholecystitis. THIS IS AN ELECTRONICALLY VERIFIED REPORT 04/09/2015 8:52 AM: ??Alan Jaramillo M.D. Alan Jaramillo M.D. CH: 08:52 AM 08:52 AM BM [EOD] Narrative 04/09/2015 8:55 AM OSTEOPATHIC NEUROLOGIST EXAMINATION: ??Right upper quadrant ultrasound. HISTORY: ??Mid abdominal pain includes both sides extends to the lower back with nausea for 1 week. TECHNIQUE: ??Multiple la-scale and color Doppler images were obtained of the right upper quadrant. COMPARISON: ??Correlation is made with a CT abdomen and pelvis 06/30/2013. FINDINGS: ??Pancreas is unremarkable. ??The common bile duct is nondilated, this measures 0.6 cm. ??No intrahepatic biliary ductal dilatation is seen. ??There are shadowing echogenic gallstones. ??No gallbladder wall thickening or pericholecystic fluid is identified. ??There is a gallstone in the gallbladder neck. ??[employer] reports a negative Pelaez's sign. ??Right kidney is 10.3 cm in length with cortical thickness of 1.5 cm. ??No hydronephrosis. ??Antegrade direction of flow is shown in the main portal vein. Procedure Note Provider, MD Kenneth - 06/22/2020 EXAMINATION: Right upper quadrant ultrasound. HISTORY: Mid abdominal pain includes both sides extends to the lower back with nausea for 1 week. TECHNIQUE: Multiple la-scale and color Doppler images were obtained ofthe right upper quadrant. COMPARISON: Correlation is made with a CT abdomen and pelvis 06/30/2013. FINDINGS: Pancreas is unremarkable. The common bile duct is nondilated,this measures 0.6 cm. No intrahepatic biliary ductal dilatation is seen.There are shadowing echogenic gallstones. No gallbladder wall thickening or pericholecystic fluid is identified. There is a gallstone in thegallbladder neck. [employer] reports a negative Pelaez's sign. Right kidney is 10.3cm in length with cortical thickness of 1.5 cm. No hydronephrosis.Antegrade direction of flow is shown in the main portal vein. IMPRESSION: Cholelithiasis including gallstone in the gallbladder neck,but without evidence of acute cholecystitis. THIS IS AN ELECTRONICALLY VERIFIED REPORT 04/09/2015 8:52 AM: Alan Jaramillo M.D. Alan Jaramillo M.D. CH: 08:52 AM 08:52 AM [facility] [EOD] Leonardo Carias MD [facility] PROCEDURES Final R esult * Microbiology Specimen Report (Converted) (04/09/2015 7:05 AM OSTEOPATHIC NEUROLOGIST) 04/09/2015 7:05 AM OSTEOPATHIC NEUROLOGIST 04/09/2015 7:18 AM OSTEOPATHIC NEUROLOGIST [facility] HISTORICAL RESULTS - 04/09/2015 7:05 AM OSTEOPATHIC NEUROLOGIST Microbiology Specimen Report (Converted) SPECIMEN [id number] ?? COLLECTED: 2015-04-09 07:05:00 ?? REQ#: [id number] REQUESTING DR: Leda Trejo PA-C ?? SOURCE: URINE ?? SP DESC: CLEAN CATC --- PROCEDURE --- ?--- RESULT --- ?? CULTURE URINE ??(Final) ??- ??Performed at [facility] ?* COLONY COUNT: 2,000 CFU/ml ?* COLONY COUNT: 20,000 CFU/ml ?* MIXED GRAM NEGATIVE BACILLI ?* MIXED GRAM POSITIVE ORGANISMS ? Culture yielded multiple organisms. This generally indicates ? contamination by normal periurethral javier at time of ? collection. No further testing will be performed on this ? specimen. Please resubmit if clinically indicated. - [facility] ? [address] ? [place] [address] ? Kit Stark MD Procedure Note 04/27/2018 Microbiology Specimen Report (Converted) SPECIMEN [id number] COLLECTED: 2015-04-09 07:05:00 RE#:[id number] REQUESTING DR: Leda Trejo PA-C SOURCE: URINE SP DESC: CLEAN CATC --- PROCEDURE --- --- RESULT --- CULTURE URINE (Final) - Performed at [facility] * COLONY COUNT: 2,000 CFU/ml * COLONY COUNT: 20,000 CFU/ml * MIXED GRAM NEGATIVE BACILLI * MIXED GRAM POSITIVE ORGANISMS Culture yielded multiple organisms. This generally indicates contamination by normal periurethral javier at time of collection. No further testing will be performed on this specimen. Please resubmit if clinically indicated. - [place] [id number] Kit Stark MD us [facility] LAB BLOOD ORDERABLES Final Re sult [employer] [facility] [facility] HISTORICAL RESULTS * (ABNORMAL) Urinalysis reflex to microscopic and culture (04/09/2015 7:05 AM OSTEOPATHIC NEUROLOGIST) Ur Collection Type CLEAN CATCH 04/09/2015 7:22 AM OSTEOPATHIC NEUROLOGIST [facility] HISTORICAL RESULTS Ur Culture Indicated? C&S INDICATED Comment:Culture report to salma mosley. Urine Color YELLOW YELLOW Urine Clarity CLOUDY CLEAR 04/09/2015 7:35 AM OSTEOPATHIC NEUROLOGIST [employer] [facility] [facility] HISTORICAL RESULTS Urine Glucose (UA) NORMAL NORMAL mg/dL Urine Bilirubin NEGATIVE NEGATIVE mg/dl Urine Ketones NEGATIVE NEGATIVE mg/dL Ur Specific [place] 1.028(H) 1.005 - 1.025 Urine Blood NEGATIVE NEGATIVE mg/dl Urine pH 6.5 5.0 - 8.0 04/09/2015 7:35 AM OSTEOPATHIC NEUROLOGIST [facility] HISTORICAL RESULTS Urine Protein 30(H) NEGATIVE mg/dL Urine Urobilinogen 2(H) NORMAL mg/dL Urine Nitrite NEGATIVE NEGATIVE Ur Leukocyte Esterase 500(H) NEGATIVE Stephanie/ul Ur Microscopic Review Indicated or Ordered Urine RBC 4 0 - 2 /HPF Urine WBC 48 0 - 2 /HPF Urine Mucus Mod /LPF Ur Squamous Epith Cells Many /HPF 04/09/2015 7:05 AM OSTEOPATHIC NEUROLOGIST 04/09/2015 7:18 AM OSTEOPATHIC NEUROLOGIST Narrative [facility] HISTORICAL RESULTS - 04/09/2015 7:35 AM OSTEOPATHIC NEUROLOGIST us Leda [facility] MICROBIOLOGY - GENERAL OR DERABLES Final Result [facility] HISTORICAL RESULTS documented in this encounter Visit Diagnoses Diagnosis Calculus of gallbladder and bile duct w/o cholecystitis or obstruction Urinary tract infection Urinary tract infection, site not specified documented in this encounter
--- OUTSIDE RECORDS SUMMARY | 2024-02-17 13:58 | XMS_ITS | Encounter Summary ---
Author Organization [facility] Healthcare Address [address] [place] [address] Care Team Providers Care Fund Raiser Name Role Phone Unavailable Primary Care Provider Unavailabl e Encounter Details Date Type Department Care Team (Late st Contact Info) Description 06/02/2014 8:29 AM CDT Hospital Encounter [facility] Macy Cordova MD [address] [address] Encounter for anatomic survey Social History Tobacco Use Types Packs/Day Years Used Date Smoking Tobacco: Never Assessed Comments Unknown Sex and Gender Information Value Date Recorded Sex Assigned at Not on file 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 1. ??Single live intrauterine estimated at 10 weeks 5 days with YOBANI of 12/24/2014. ??No evidence of complication. 2. ?? heart rate 171 beats per minute. THIS IS AN ELECTRONICALLY VERIFIED REPORT 06/02/2014 12:42 PM: ??Alan Jaramillo M.D. Alan Jaramillo M.D. CH:cali 09:11 AM 09:34 AM BM [EOD] Narrative 06/02/2014 1:00 PM CDT EXAMINATION: ??Pelvic ultrasound HISTORY: ??, unsure of LMP, for dating. TECHNIQUE: ??Multiple la-scale and color Doppler images were obtained of the pelvis as part of the first trimester OB ultrasound. COMPARISON: ??None. FINDINGS: ??The cervix appears long and closed measuring 3.6 cm. ??The uterus measures 12.0 x 8.2 x 5.8 cm. ??An intrauterine gestational sac is seen with a single fetus with a crown-rump length mean of 3.8 cm which corresponds to an estimated age 10 weeks 5 days with a corresponding YOBANI 12/24/2014. ??A yolk sac is noted measuring 0.4 cm. ??The heart rate is 1 Hz and 1 beat per minute on M-mode. The right ovary measures 2.9 x 1.7 x 1.8 cm. ??The left ovary measures 2.8 x 1.9 x 1.8 cm. ??No adnexal masses are identified. ??No free fluid is seen in the pelvis. ??Color Doppler imaging shows expected color flow in the ovaries. Procedure Note Provider, MD Kenneth - 06/22/2020 EXAMINATION: Pelvic ultrasound HISTORY: , unsure of LMP, for dating. TECHNIQUE: Multiple la-scale and color Doppler images were obtained ofthe pelvis as part of the first trimester OB ultrasound. COMPARISON: None. FINDINGS: The cervix appears long and closed measuring 3.6 cm. Theuterus measures 12.0 x 8.2 x 5.8 cm. An intrauterine gestational sac is seenwith a single fetus with a crown-rump length mean of 3.8 cm which corresponds krystina estimated age 10 weeks 5 days with a corresponding YOBANI 12/24/2014. A yolksac is noted measuring 0.4 cm. The heart rate is 1 Hz and 1 beat perminute on M-mode. The right ovary measures 2.9 x 1.7 x 1.8 cm. The left ovary measures 2.8x 1.9 x 1.8 cm. No adnexal masses are identified. No free fluid is seen inthe pelvis. Color Doppler imaging shows expected color flow in the ovaries. IMPRESSION: 1. Single live intrauterine estimated at 10 weeks 5 days withEDD of 12/24/2014. No evidence of complication. 2. heart rate 171 beats per minute. THIS IS AN ELECTRONICALLY VERIFIED REPORT 06/02/2014 12:42 PM: Alan Jaramillo M.D. Alan Jaramillo M.D. CH:cali 09:11 AM 09:34 AM [facility] [EOD] Macy Liu MD [facility] [place] PROCEDURES Final Result documented in this encounter Visit Diagnoses Diagnosis Encounter for anatomic survey documented in this encounter
--- OUTSIDE RECORDS SUMMARY | 2024-02-17 13:58 | XMS_ITS | Encounter Summary ---
Author Organization [facility] Healthcare Address [address] [place] [address] Care Team Providers Care Line Construction Supervisor Name Role Phone Unavailable Primary Care Provider Unavailabl e Encounter Details Date Type Department Care Team (Latest Contact Info) Description 05/17/2016 10:43 AM CDT - 05/17/2016 11:56 AM CDT Hospital Encounter [facility], Vahid Paul, DO [address] [facility] [place] [address] Acute sinusitis; Acute pharyngitis; Contact with and (suspected) exposure to environmental tobacco smoke (acute) (chronic) Social History Tobacco Use Types Packs/Day Years Used Date Smoking Tobacco: Never Assessed Comments Unknown Sex and Gender Information Value Date Recorded Sex Assigned at Not on file 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 Gender Identity Female 07/16/2022 10:05 AM CDT Sexual Orientation Straight 07/16/2022 10 :05 AM CDT documented as of this encounter Last Filed Vital Signs Vital Sign Reading Time Taken Comments Blood Pressure 123/70 05/17/2016 10:51 AM CDT Pulse 90 05/17/2016 10:51 AM CDT Temperature 36.7 ??C (98 ??F) 05/17/2016 10:51 AM CDT Respiratory Rate - - Oxygen Saturation 100% 05/17/2016 10:51 AM CDT Inhaled Oxygen Concentration - - Weight 76.6 kg (168 lb 14 oz) 05/17/2016 10:51 A M CDT Height 165.1 cm (5' 5 ) 05/17/2016 10:51 AM CDT Body Mass Index 28.1 05/17/2016 10:51 AM CDT documented in this encounter Plan of Treatment Not on file documented as of this encounter Procedures Procedure Name Priority Date/Time Associated Diagnosis Comments CBC WITH AUTO DIFFERENTIAL Routine 05/17/2016 11:35 AM CDT XR CHEST PA LATERAL 2 VIEWS Routine 05/17/2016 12:00 AM CDT documented in this encounter Results * (ABNORMAL) CBC with auto differential (05/17/2016 11:35 AM CDT) WBC 5.4 4.6 - 10.2 x10 3/ul 05/17/2016 11:44 AM CDT [employer] HISTORICAL RESULTS RBC 4.76 3.76 - 4.80 x10 6/ul 05/17/2016 11:44 AM CDT [employer] HISTORICAL RESULTS Hemoglobin 13.9 11.0 - 15.0 g/dl 05/17/2016 11:44 AM CDT [employer] HISTORICAL RESULTS Hct 42.2 33.0 - 43.0 % 05/17/2016 11:44 AM CDT [employer] HISTORICAL RESULTS MCV 88.7 80.0 - 97.0 fl 05/17/2016 11:44 AM CDT [employer] HISTORICAL RESULTS MCH 29.2 27.0 - 31.2 pg 05/17/2016 11:44 AM CDT [employer] HISTORICAL RESULTS MCHC 32.9 31.8 - 35.4 g/dl 05/17/2016 11:44 AM CDT [employer] HISTORICAL RESULTS RDW 13.2 11.6 - 14.8 % 05/17/2016 11:44 AM CDT [employer] HISTORICAL RESULTS Plt Count 282 124 - 400 x10 3/ul 05/17/2016 11:44 AM CDT [employer] HISTORICAL RESULTS MPV 9.4 7.4 - 10.4 fl 05/17/2016 11:44 AM CDT [employer] HISTORICAL RESULTS Neut % 42.4 37.0 - 85.0 % Immature Gran % 0.2 0.0 - 3.0 % Lymph % 46.8(H) 5.0 - 45.0 % Mcpherson % 9.1 3.0 - 15.0 % Eos % 0.6 0.0 - 7.0 % Baso % 0.9 0.0 - 2.0 % Absolute Neuts (auto) 2.3 1.7 - 8.7 x10 3/ul Immature Gran # 0.0 0.0 - 0.3 x10 3/ul Absolute Lymphs (auto) 2.5 0.2 - 4.6 x10 3/ul Absolute Monos (auto) 0.5 0.1 - 1.5 x10 3/ul Absolute Eos (auto) 0.0 0.0 - 0.7 x10 3/ul Absolute Basos (auto) 0.1 0.0 - 0.2 x10 3/ul 05/17/2016 11:3 5 AM CDT 05/17/2016 11:40 AM CDT Cherie Ramesh NP LAB BLOOD ORDERABLES Fin al Result [facility] HISTORICAL RESULTS * XR Chest Pa Lateral 2 Views (05/17/2016 12:00 AM CDT) Anatomical Region Laterality Modality Body, Chest N/A Radiographic Rachael ging 05/17/2016 Impressions 05/17/2016 11:40 AM CDT ??No active pulmonary disease. THIS IS AN ELECTRONICALLY VERIFIED REPORT 05/17/2016 11:37 AM: ??Jim You M.D. ?? Jim You M.D. RK:jim 11:37 AM 11:37 AM [facility] [EOD] Narrative 05/17/2016 11:40 AM CDT Two-view chest HISTORY: ??Chest pain and hot flashes for 1 week. FINDINGS: ??The cardiomediastinal silhouette is normal. ??Lungs are expanded and free of infiltrate. ??There is no pleural effusion or pneumothorax. Procedure Note Provider, MD Kenneth - 06/22/2020 Two-view chest HISTORY: Chest pain and hot flashes for 1 week. FINDINGS: The cardiomediastinal silhouette is normal. Lungs are expandedand free of infiltrate. There is no pleural effusion or pneumothorax. IMPRESSION: No active pulmonary disease. THIS IS AN ELECTRONICALLY VERIFIED REPORT 05/17/2016 11:37 AM: Jim You M.D. Garrick Blackmon:jim 11:37 AM 11:37 AM [facility] [EOD] Cherie Ramesh NP IMG XR PROCEDURES Final Result documented in this encounter Visit Diagnoses Diagnosis Acute sinusitis Acute sinusitis, unspecified Acute pharyngitis Contact with and (suspected) exposure to environmental tobacco smoke (acute) (chronic) documented in this encounter
--- OUTSIDE RECORDS SUMMARY | 2024-02-17 13:58 | XMS_ITS | Encounter Summary ---
Author Organization [facility] Healthcare Address [address] [place] [address] Care Team Providers Care It Systems Engineer Name Role Phone Unavailable Primary Care Provider Unavailabl e Encounter Details Date Type Department Care Team (Latest Contact Info) Description 12/18/2012 11:15 PM CAR DISTRIBUTOR - 12/19/2012 2:12 AM CAR DISTRIBUTOR Hospital Encounter [facility] Katelyn Treviño MD [address] [facility] [place] [address] Other disorders of menstruation and other abnormal bleeding from female genital tract; Presence of subdermal contraceptive device Social History Tobacco Use Types Packs/Day Years Used Date Smoking Tobacco: Never Assessed Comments Unknown Sex and Gender Information Value Date Recorded Sex Assigned at Not on file Legal Sex Female 5:56 PM CAR DISTRIBUTOR Gender Identity Female 07/16/2022 10:05 AM CDT Sexual Orientation Straight 07/16/2022 10 :05 AM CDT documented as of this encounter Last Filed Vital Signs Vital Sign Reading Time Taken Comments Blood Pressure 116/78 12/18/2012 11:18 PM CAR DISTRIBUTOR Pulse 101 12/18/2012 11:18 PM CAR DISTRIBUTOR Temperature 36.9 ??C (98.4 ??F) 12/18/2012 11:[address] Respiratory Rate - - Oxygen Saturation 100% 12/18/2012 11:18 PM CAR DISTRIBUTOR Inhaled Oxygen Concentration - - Weight 59 kg (130 lb) 12/18/2012 11:18 PM CAR DISTRIBUTOR Height 165.1 cm (5' 5 ) 12/18/2012 11:18 PM CAR DISTRIBUTOR Body Mass Index 21.63 12/18/2012 11:18 PM CAR DISTRIBUTOR documented in this encounter Plan of Treatment Not on file documented as of this encounter Procedures Procedure Name Priority Date/Time Associated Diagnosis Comments HCG, BLOOD, QUANTITATIVE Routine 12/18/2012 11:45 PM CAR DISTRIBUTOR URINALYSIS AND REFLEX TO MICROSCOPIC AND CULTURE Routine 12/18/2012 11:35 PM CAR DISTRIBUTOR CBC WITH AUTO DIFFERENTIAL Routine 12/18/2012 11:35 PM CAR DISTRIBUTOR APTT Routine 12/18/2012 11:35 PM CAR DISTRIBUTOR PROTIME-INR Routine 12/18/2012 11:35 PM CAR DISTRIBUTOR COMPREHENSIVE METABOLIC PANEL Routine 12/18/2012 11:35 PM CAR DISTRIBUTOR documented in this encounter Results * hCG, blood, quantitative (12/18/2012 11:45 PM CAR DISTRIBUTOR) Beta HCG, Quant < 0.1 0.0 - 1.0 mIU/mL 12/19/2012 12:18 AM CAR DISTRIBUTOR [facility] HISTORICAL RESULTS Comment: Weeks of preg ?BHCG ? Weeks of preg ? BHCG ?3 ? 5.8-71.2 ?10 ? 46,509-186,977 ?4 ? 9.5-750 ? 12 ? 27,832-210,612 ?5 ? 217-7,138 ? 14 ? 13,950-62,530 ?6 ? 158-31,795 ?15 ? 12,039-70,971 ?7 ?3,697-163,563 ?16 ?9,040-56,451 ?8 ? 32,065-149,571 ?17 ?8,175-55,868 ?9 ? 63,803-151,410 ?18 ?8,099-58,176 Post-menopause: ??0-8.3 ?METHOD: ??Brown ECLIA Intended for the early detection of . ? 12/18/2012 11:4 5 PM CAR DISTRIBUTOR 12/18/2012 11:47 PM CAR DISTRIBUTOR us Katelyn Treviño MD LAB BLOOD ORDERABLES Miryam cárdenas Result [facility] HISTORICAL RESULTS * (ABNORMAL) Urinalysis reflex to microscopic and culture (12/18/2012 11:35 PM CAR DISTRIBUTOR) Ur Collection Type CLEAN CATCH 12/19/2012 12:37 AM [facility] HIST[facility] RESULTS Ur Culture Indicated? C&S NOT INDICATED 12/19/2012 12:37 AM [facility] [employer] HISTORICAL RESULTS Urine Color STRAW YELLOW 12/19/2012 12:37 AM [facility] HISTORICAL RESULTS Urine Clarity CLEAR CLEAR 12/19/2012 12:37 AM [facility] [employer] HISTORICAL RESULTS Urine Glucose (UA) NORMAL NORMAL mg/dL 12/19/2012 12:37 AM [facility] [employer] [facility] HISTORICAL RESULTS Urine Bilirubin NEGATIVE NEGATIVE mg/dl 12/19/2012 12:37 AM [facility] HISTORICAL RESULTS Urine Ketones NEGATIVE NEGATIVE mg/dL 12/19/2012 12:37 AM [facility] HISTORICAL RESULTS Ur Specific [place] 1.002(L) 1.005 - 1.025 Urine Blood 1.0(H) NEGATIVE mg/dl Urine pH 7.5 5.0 - 8.0 Urine Protein 10(H) NEGATIVE mg/dL Urine Urobilinogen NORMAL NORMAL mg/dL Urine Nitrite NEGATIVE NEGATIVE Ur Leukocyte Esterase NEGATIVE NEGATIVE Stephanie/ul Ur Microscopic Review Indicated or Ordered Urine RBC 4 0 - 2 /HPF Urine WBC 1 0 - 2 /HPF Urine Bacteria Few /HPF Ur Squamous Epith Cells Rare /HPF 12/18/2012 11:3 5 PM CAR DISTRIBUTOR 12/19/2012 12:11 AM CAR DISTRIBUTOR Narrative [facility] HISTORICAL RESULTS - 12/19/2012 12:37 AM CAR DISTRIBUTOR Collected By rlp ?? [phone] ?? Gertrudis DUPONT LAB MICROBIOLOGY - GENERAL OR DERABLES Final Result [facility] HISTORICAL RESULTS * Protime-INR (12/18/2012 11:35 PM CAR DISTRIBUTOR) PT 12.7 12.2 - 14.8 SECONDS INR 0.92 0.01 - 5.99 Comment: Recommended Therapeutic range for Oral Anticoagulant Therapy No anti-coagulation therapy ? Normal Range: ?0.8-1.4 Anti-coagulation therapy ? Low intensity therapy ?2.0-3.0 ? High intensity therapy ?? 2.5-3.5 Critical Value ? Greater than or equal to 6.0 Patients should be monitored for serious bleeding. ?? 12/18/2012 11:3 5 PM CAR DISTRIBUTOR 12/18/2012 11:38 PM CAR DISTRIBUTOR Gertrudis DUPONT LAB BLOOD ORDERABLES Final Re sult Performing Organization Address [facility] Co de Phone Number [facility] HISTORICAL RESULTS * aPTT (12/18/2012 11:35 PM CAR DISTRIBUTOR) APTT 28 22 - 38 SECONDS 12/18/2012 11:3 5 PM CAR DISTRIBUTOR 12/18/2012 11:38 PM CAR DISTRIBUTOR Gertrudis DUPONT LAB BLOOD ORDERABLES Final Re sult Performing Organization Address [facility] Co de Phone Number [facility] HISTORICAL RESULTS * Comprehensive metabolic panel (12/18/2012 11:35 PM CAR DISTRIBUTOR) Sodium 136 135 - 145 mmol/L Potassium 3.4 3.3 - 5.1 mmol/L Chloride 101 96 - 108 mmol/L Carbon Dioxide 26 22 - 32 mmol/L Anion Gap 9 Glucose 89 70 - 110 mg/dL BUN 11 6 - 20 mg/dL Creatinine 0.6 0.5 - 1.1 mg/dL 12/19/2012 12:00 AM [employer] HISTORICAL RESULTS Kidney Disease Stage > 90 mL/MIN 12/19/2012 12:00 AM [employer] HISTORICAL RESULTS Comment: NOTE; ??The GFR is an estimated [...] Kidney failure or on dialysis @ Calcium 9.2 8.6 - 10.2 mg/dL 12/19/2012 12:00 AM [employer] HISTORICAL RESULTS Comment: Reporting units changed on 11-21-2012 from mmol/L to mg/dL. Compare to previous results with caution. Total Protein 7.3 6.4 - 8.4 g/dL 12/19/2012 12:00 AM [employer] HISTORICAL RESULTS Albumin 4.4 3.5 - 5.2 g/dL 12/19/2012 12:00 AM [employer] HISTORICAL RESULTS Globulin 2.9 2.3 - 3.5 gm/dL 12/19/2012 12:00 AM [employer] HISTORICAL RESULTS Albumin/Globulin Ratio 1.5 1.1 - 1.8 12/19/2012 12:00 AM [employer] HISTORICAL RESULTS Total Bilirubin 0.3 0.0 - 1.2 mg/dL 12/19/2012 12:00 AM [employer] HISTORICAL RESULTS AST 17 0 - 32 U/L 12/19/2012 12:00 AM [employer] HISTORICAL RESULTS ALT 19 0 - 31 U/L 12/19/2012 12:00 AM CAR DISTRIBUTOR [email or web address] HISTORICAL RESULTS Alkaline Phosphatase 60 35 - 104 U/L 12/19/2012 12:00 AM [facility] [employer] HISTORICAL RESULTS 12/18/2012 11:3 5 PM CAR DISTRIBUTOR 12/18/2012 11:38 PM CAR DISTRIBUTOR Gertrudis Roberts PA LAB BLOOD ORDERABLES Final Re sult [facility] [employer] HISTORICAL RESULTS * CBC with auto differential (12/18/2012 11:35 PM CAR DISTRIBUTOR) WBC 10.1 4.6 - 10.2 x10 3/ul 12/19/2012 12:01 AM CAR DISTRIBUTOR [email or web address] HISTORICAL RESULTS RBC 4.41 3.76 - 4.80 x10 6/ul 12/19/2012 12:01 AM [facility] [email or web address] HISTORICAL RESULTS Hemoglobin 13.1 11.0 - 15.0 g/dl 12/19/2012 12:01 AM CAR DISTRIBUTOR [email or web address] HISTORICAL RESULTS Hct 38.6 33.0 - 43.0 % 12/19/2012 12:01 AM CAR DISTRIBUTOR [email or web address] HISTORICAL RESULTS MCV 87.5 80.0 - 97.0 fl 12/19/2012 12:01 AM [facility] [employer] HISTORICAL RESULTS MCH 29.7 27.0 - 31.2 pg 12/19/2012 12:01 AM [facility] [employer] HISTORICAL RESULTS MCHC 33.9 31.8 - 35.4 g/dl 12/19/2012 12:01 AM CAR DISTRIBUTOR [email or web address] HISTORICAL RESULTS RDW 13.5 11.6 - 14.8 % 12/19/2012 12:01 AM CAR DISTRIBUTOR [email or web address] HISTORICAL RESULTS Plt Count 330 124 - 400 x10 3/ul 12/19/2012 12:01 AM [facility] [email or web address] HISTORICAL RESULTS MPV 9.4 7.4 - 10.4 fl 12/19/2012 12:01 AM [facility] [employer] HISTORICAL RESULTS Differential Method AUTOMATED DIFF --------- -- 12/19/2012 12:01 AM [facility] [email or web address] HISTORICAL RESULTS Neut % 48.6 37.0 - 85.0 % Immature Gran % 0.5 0.0 - 3.0 % Lymph % 36.0 5.0 - 45.0 % Morton % 13.1 3.0 - 15.0 % Eos % 1.3 0.0 - 7.0 % Baso % 0.5 0.0 - 2.0 % ABSOLUTE COUNTS ABSOLUTE COUNTS --------- -- Absolute Neuts (auto) 4.9 1.7 - 8.7 x10 3/ul Immature Gran # 0.1 0.0 - 0.3 x10 3/ul Absolute Lymphs (auto) 3.6 0.2 - 4.6 x10 3/ul Absolute Monos (auto) 1.3 0.1 - 1.5 x10 3/ul Absolute Eos (auto) 0.1 0.0 - 0.7 x10 3/ul Absolute Basos (auto) 0.1 0.0 - 0.2 x10 3/ul 12/18/2012 11:3 5 PM CAR DISTRIBUTOR 12/18/2012 11:38 PM [facility] us Gertrudis Roberts PA LAB BLOOD ORDERABLES Final Re sult [facility] HISTORICAL RESULTS documented in this encounter Visit Diagnoses Diagnosis Other disorders of menstruation and other abnormal bleeding from female genital tract Presence of subdermal contraceptive device documented in this encounter
--- OUTSIDE RECORDS SUMMARY | 2024-02-17 13:58 | XMS_ITS | Encounter Summary ---
Author Organization [facility] Healthcare Address [address] [place] [address] Care Team Providers Care Senior Graduate Advisor Name Role Phone Unavailable Primary Care Provider Unavailabl e Encounter Details Date Type Department Care Team (Latest Contact Info) Description 03/22/2013 10:01 PM DAUB COLOR MIXER - 03/23/2013 1:34 AM DAUB COLOR MIXER Hospital Encounter [facility] ER Nausea without vomiting Social History Tobacco Use Types Packs/Day Years Used Date Smoking Tobacco: Never Assessed Comments Unknown Sex and Gender Information Value Date Recorded Sex Assigned at Not on file Legal Sex Female 5:56 PM DAUB COLOR MIXER Gender Identity Female 07/16/2022 10:05 AM CDT Sexual Orientation Straight 07/16/2022 10 :05 AM CDT documented as of this encounter Last Filed Vital Signs Vital Sign Reading Time Taken Comments Blood Pressure - - Pulse 125 03/22/2013 10:03 PM DAUB COLOR MIXER Temperature 37.4 ??C (99.4 ??F) 03/22/2013 10:03 PM C Respiratory Rate - - Oxygen Saturation 98% 03/22/2013 10:03 PM DAUB COLOR MIXER Inhaled Oxygen Concentration - - Weight 65.8 kg (145 lb) 03/22/2013 10:03 PM DAUB COLOR MIXER Height 162.6 cm (5' 4 ) 03/22/2013 10:03 PM DAUB COLOR MIXER Body Mass Index 24.89 03/22/2013 10:03 PM DAUB COLOR MIXER documented in this encounter Plan of Treatment Not on file documented as of this encounter Procedures Procedure Name Priority Date/Time Associated Diagnosis Comments URINALYSIS AND REFLEX TO MICROSCOPIC AND CULTURE Routine 03/22/2013 10:15 PM DAUB COLOR MIXER DRUGS OF ABUSE SCREEN, URINE WITHOUT CONFIRMATION Routine 03/22/2013 10:15 PM DAUB COLOR MIXER documented in this encounter Results * (ABNORMAL) Urinalysis reflex to microscopic and culture (03/22/2013 10:15 PM DAUB COLOR MIXER) Ur Collection Type CLEAN CATCH Ur Culture Indicated? C&S NOT INDICATED Urine Color YELLOW YELLOW Urine Clarity HAZY CLEAR Urine Glucose (UA) NORMAL NORMAL mg/dL Urine Bilirubin NEGATIVE NEGATIVE mg/dl Urine Ketones 5(H) NEGATIVE mg/dL Ur Specific [place] 1.019 1.005 - 1.025 Urine Blood 0.06(H) NEGATIVE mg/dl Urine pH 6.0 5.0 - 8.0 Urine Protein 30(H) NEGATIVE mg/dL Urine Urobilinogen NORMAL NORMAL mg/dL Urine Nitrite NEGATIVE NEGATIVE Ur Leukocyte Esterase NEGATIVE NEGATIVE Stephanie/ul Ur Microscopic Review Indicated or Ordered Urine RBC 3 0 - 2 /HPF Urine WBC 2 0 - 2 /HPF Urine Mucus Mod /LPF Ur Squamous Epith Cells Rare /HPF Hyaline Casts 1 0 - 2 /LPF 03/22/2013 10:1 5 PM DAUB COLOR MIXER 03/22/2013 10:20 PM DAUB COLOR MIXER Narrative [facility] HISTORICAL RESULTS - 03/22/2013 10:25 PM DAUB COLOR MIXER Collected By pb ?? 206 ?? us Historical Provider LAB MICROBIOLOGY - GENERA L ORDERABLES Final Result [facility] HISTORICAL RESULTS * Drug Screen, Urine without Confirmation (03/22/2013 10:15 PM DAUB COLOR MIXER) Ur Amphetamine Screen NEGATIVE NEGATIVE Comment: Cutoff Limit: ??1000 ng/mL Note: ??Positive results from this drug screen are unconfirmed. ??Unconfirmed screening results should not be used for non-medical purposes. Ur Barbiturates Screen NEGATIVE NEGATIVE Comment:Cutoff limit: 200 ng /mL U Benzodiazepines Scrn NEGATIVE NEGATIVE Comment:Cutoff limit: 300 ng /mL U Cannabinoids Screen NEGATIVE NEGATIVE Comment:Cutoff Limit: 50 ng/ mL U Cocaine Metab Screen NEGATIVE NEGATIVE Comment:Cutoff limit: 300 ng /mL Urine Opiates Screen NEGATIVE NEGATIVE Comment:Cutoff Limit: 300 ng /mL Urine Creatinine/CARA 206.0 mg/dL Comment:If Creatinine is < 4 0 mg/dL, recollection is suggested. 03/22/2013 10:[address] [facility] 03/22/2013 10:20 PM DAUB COLOR MIXER Narrative [facility] HISTORICAL RESULTS - 03/22/2013 10:42 PM DAUB COLOR MIXER Collected By pb ?? 206 us Historical Provider LAB URINE ORDERABLES Miryam cárdenas Result Performing Organization Address City/State/[facility] Co de Phone Number [facility] HISTORICAL RESULTS documented in this encounter Visit Diagnoses Diagnosis Nausea without vomiting documented in this encounter
--- OUTSIDE RECORDS SUMMARY | 2024-02-17 13:58 | XMS_ITS | Encounter Summary ---
Author Organization [facility] Healthcare Address [address] [place] [address] Care Team Providers Care Senior Sales Executive Name Role Phone Unavailable Primary Care Provider Unavailabl e Encounter Details Date Type Department Care Team (Latest Contact Info) Description 10/18/2014 8:03 PM CDT - 10/18/2014 9:45 PM CDT Hospital Encounter [facility] Rich Simeon MD [address] [address] Other current maternal conditions classifiable elsewhere, antepartum Social History Tobacco Use Types Packs/Day Years Used Date Smoking Tobacco: Never Assessed Comments Unknown Sex and Gender Information Value Date Recorded Sex Assigned at Not on file Legal Sex Female 5:56 PM BROKERAGE COORDINATOR Gender Identity Female 07/16/2022 10:05 AM CDT Sexual Orientation Straight 07/16/2022 10 :05 AM CDT documented as of this encounter Last Filed Vital Signs Vital Sign Reading Time Taken Comments Blood Pressure 103/70 10/18/2014 8:25 PM CDT Pulse 93 10/18/2014 8:25 PM CDT Temperature 36.7 ??C (98 ??F) 10/18/2014 8:25 PM CDT Respiratory Rate - - Oxygen Saturation 98% 10/18/2014 8:25 PM CDT Inhaled Oxygen Concentration - - Weight 68.9 kg (152 lb) 10/18/2014 8:25 PM CDT Height 162.6 cm (5' 4 ) 10/18/2014 8:25 PM CDT Body Mass Index 26.09 10/18/2014 8:25 PM CDT documented in this encounter Plan of Treatment Not on file documented as of this encounter Procedures Procedure Name Priority Date/Time Associated Diagnosis Comments URINALYSIS AND REFLEX TO MICROSCOPIC AND CULTURE Routine 10/18/2014 8:35 PM CDT DRUGS OF ABUSE SCREEN, URINE WITHOUT CONFIRMATION Routine 10/18/2014 8:35 PM CDT documented in this encounter Results * (ABNORMAL) Urinalysis reflex to microscopic and culture (10/18/2014 8:35 PM CDT) Ur Collection Type CLEAN CATCH 10/18/2014 8:[address] [facility] HISTORICAL RESULTS Ur Culture Indicated? C&S NOT INDICATED 10/18/2014 9:[address] [facility] HISTORICAL RESULTS Urine Color YELLOW YELLOW 10/18/2014 9:[address] [facility] HISTORICAL RESULTS Urine Clarity CLOUDY CLEAR 10/18/2014 9:[address] [facility] HISTORICAL RESULTS Urine Glucose (UA) NORMAL NORMAL mg/dL 10/18/2014 9:[address] [facility] HISTORICAL RESULTS Urine Bilirubin NEGATIVE NEGATIVE mg/dl 10/18/2014 9:[address] [facility] HISTORICAL RESULTS Urine Ketones NEGATIVE NEGATIVE mg/dL 10/18/2014 9:[address] [facility] HISTORICAL RESULTS Ur Specific [place] 1.015 1.005 - 1.025 10/18/2014 9:[address] [facility] HISTORICAL RESULTS Urine Blood NEGATIVE NEGATIVE mg/dl 10/18/2014 9:[address] [facility] HISTORICAL RESULTS Urine pH 7.0 5.0 - 8.0 10/18/2014 9:[address] [facility] HISTORICAL RESULTS Urine Protein 10(H) NEGATIVE mg/dL 10/18/2014 9:[address] [facility] HISTORICAL RESULTS Urine Urobilinogen 4(H) NORMAL mg/dL 10/18/2014 9:[address] [facility] HISTORICAL RESULTS Urine Nitrite NEGATIVE NEGATIVE 10/18/2014 9:[address] [facility] HISTORICAL RESULTS Ur Leukocyte Esterase 75(H) NEGATIVE Stepahnie/ul Ur Microscopic Review Indicated or Ordered Urine RBC 1 0 - 2 /HPF Urine WBC 1 0 - 2 /HPF Urine Mucus Few /LPF Ur Squamous Epith Cells Rare /HPF Amorphous Crystals Rare /HPF 10/18/2014 8:35 PM CDT 10/18/2014 8:53 PM CDT Narrative [facility] HISTORICAL RESULTS - 10/18/2014 9:02 PM CDT Rich Simeon MD LAB MICROBIOLOGY - GEN ERAL ORDERABLES Final Result [facility] HISTORICAL RESULTS * Drug Screen, Urine without Confirmation (10/18/2014 8:35 PM CDT) Ur Amphetamine Screen NEGATIVE NEGATIVE 10/18/2014 9:[address] [facility] HISTORICAL RESULTS Comment: Cutoff Limit: ??1000 ng/mL Note: ??Positive [...] Comment:Cutoff Limit: 300 ng /mL Urine Creatinine/CARA 130.0 mg/dL Comment:If Creatinine is < 4 0 mg/dL, recollection is suggested. 10/18/2014 8:35 PM CDT 10/18/2014 8:53 PM CDT Narrative [facility] HISTORICAL RESULTS - 10/18/2014 9:19 PM CDT Collected By js us Rich Simeon MD LAB URINE ORDERABLES F inal Result [facility] HISTORICAL RESULTS documented in this encounter Visit Diagnoses Diagnosis Other current maternal conditions classifiable elsewhere, antepartum documented in this encounter
--- OUTSIDE RECORDS SUMMARY | 2024-02-17 13:58 | XMS_ITS | Encounter Summary ---
Author Organization [facility] Healthcare Address [address] [place] [address] Care Team Providers Care Buffet Attendant Name Role Phone Unavailable Primary Care Provider Unavailabl e Encounter Details Date Type Department Care Team (Latest Contact Info) Description 05/24/2016 9:50 AM CDT - 05/24/2016 11:46 AM CDT [facility] [address] [place] [address] Acquired cyst of kidney; Diverticulosis of intestine without perforation or abscess without bleeding Social History Tobacco Use Types Packs/Day Years Used Date Smoking Tobacco: Never Assessed Comments Unknown Sex and Gender Information Value Date Recorded Sex Assigned at Not on file 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[employer] Gender Identity Female 07/16/2022 10:05 AM CDT Sexual Orientation Straight 07/16/2022 10 :05 AM CDT documented as of this encounter Last Filed Vital Signs Vital Sign Reading Time Taken Comments Blood Pressure 107/64 05/24/2016 9:54 AM CDT Pulse 61 05/24/2016 9:54 AM CDT Temperature 36.8 ??C (98.3 ??F) 05/24/2016 9:54 AM CD T Respiratory Rate - - Oxygen Saturation 100% 05/24/2016 9:54 AM CDT Inhaled Oxygen Concentration - - Weight 76.3 kg (168 lb 3.4 oz) 05/24/2016 9:54 A M CDT Height 165.1 cm (5' 5 ) 05/24/2016 9:54 AM CDT Body Mass Index 27.99 05/24/2016 9:54 AM CDT documented in this encounter Plan of Treatment Not on file documented as of this encounter Procedures Procedure Name Priority Date/Time Associated Diagnosis Comments CBC WITH AUTO DIFFERENTIAL Routine 05/24/2016 10:38 AM CDT COMPREHENSIVE METABOLIC PANEL Routine 05/24/2016 10:38 AM CDT UA WITH CULTURE REFLEX Routine 7 10:[address] ABDOMEN PELVIS W CONTRAST Routine 05/24/2016 12:00 AM CDT documented in this encounter Results * (ABNORMAL) Comprehensive metabolic panel (05/24/2016 10:38 AM CDT) Sodium 135 135 - 145 mmol/L 05/24/2016 11:09 AM [facility] [employer] HISTORICAL RESULTS Potassium 4.3 3.3 - 5.1 mmol/L 05/24/2016 11:09 AM [facility] [employer] [employer] HISTOR[facility] RESULTS Chloride 98 96 - 108 mmol/L 05/24/2016 11:09 AM [facility] [employer] HISTORICAL RESULTS Carbon Dioxide 24 22 - 32 mmol/L 05/24/2016 11:09 AM [facility] [employer] [facility] HISTORICAL RESULTS Anion Gap 13 7 - 16 05/24/2016 11:09 AM [facility] [employer] [facility] HISTORICAL RESULTS Glucose 102(H) 70 - 100 mg/dL 05/24/2016 11:09 AM [facility] [employer] [facility] HISTORICAL RESULTS BUN 15 6 - 20 mg/dL 05/24/2016 11:09 AM [facility] [employer] [facility] HISTORICAL RESULTS Creatinine 0.9 0.5 - 1.1 mg/dL 05/24/2016 11:09 AM [facility] [employer] HISTORICAL RESULTS Comment: NOTE: Estimated GFR (Cockroft-Gault) will NOT be calculated unless patient Height and Weight were entered. Also, Kidney Disease Stage (GFR) and Estimated GFR (Cockroft-Gault) will NOT be calculated if Creatinine result is <0.2. Kidney Disease Stage 82 mL/MIN 05/24/2016 11:09 AM [facility] HISTORICAL RESULTS Comment: NOTE; ??The GFR is an estimated value using the creatinine, sex, age, and race of the patient. THE Estimated Kidney Disease GFR is validated for AGES 18-70 YEARS STAGE ?mL/Min ?DESCRIPTION ??1 ?90 mL/min or more ?Normal or elevated GFR ??2 ? 60-89 mL/min ?Mildly decreased GFR ??3 ? 30-59 mL/min ?Moderately decreased GFR ??4 ? 15-29 mL/min ?Severely decreased GFR ??5 ? <15 mL/min ? Kidney failure or on dialysis @ Est GFR (Cockcroft-G) 98 ml/MIN 05/24/2016 11:09 AM [facility] HISTORICAL RESULTS Comment: Estimated GFR(Cockroft-Gault)is used to calculate patient medication dosage Calcium 8.9 8.6 - 10.0 mg/dL 05/24/2016 11:09 AM [facility] HISTORICAL RESULTS Total Protein 7.2 6.4 - 8.3 g/dL 05/24/2016 11:09 AM [facility] HISTORICAL RESULTS Albumin 4.2 3.5 - 5.2 g/dL 05/24/2016 11:09 AM [facility] [employer] HISTORICAL RESULTS Globulin 3.0 2.3 - 3.5 gm/dL 05/24/2016 11:09 AM [facility] HISTORICAL RESULTS Albumin/Globulin Ratio 1.4 1.1 - 1.8 05/24/2016 11:09 AM [facility] [employer] HISTORICAL RESULTS Total Bilirubin 0.3 0.0 - 1.2 mg/dL 05/24/2016 11:09 AM [facility] HISTORICAL RESULTS AST 17 0 - 32 U/L 05/24/2016 11:09 AM CDT [facility] [employer] HISTORICAL RESULTS ALT 28 0 - 33 U/L 05/24/2016 11:09 AM CDT [facility] Alkaline Phosphatase 79 35 - 104 U/L 05/24/2016 11:09 AM CDT [facility] [employer] HISTORICAL RESULTS 05/24/2016 10:3 8 AM CDT 05/24/2016 10:44 AM CDT us [facility] BLOOD ORDERABLES Final Resu lt [facility] HISTORICAL RESULTS * CBC with auto differential (05/24/2016 10:38 AM CDT) WBC 7.0 4.6 - 10.2 x10 3/ul 05/24/2016 10:48 AM CDT [facility] HISTORICAL RESULTS RBC 4.70 3.76 - 4.80 x10 6/ul 05/24/2016 10:48 AM CDT [facility] [employer] HISTORICAL RESULTS Hemoglobin 13.7 11.0 - 15.0 g/dl 05/24/2016 10:48 AM CDT [facility] [employer] HISTORICAL RESULTS Hct 41.6 33.0 - 43.0 % 05/24/2016 10:48 AM CDT [facility] HISTORICAL RESULTS MCV 88.5 80.0 - 97.0 fl 05/24/2016 10:48 AM CDT [facility] RES[facility] MCH 29.1 27.0 - 31.2 pg 05/24/2016 10:48 AM CDT [facility] [employer] HISTORICAL RESULTS MCHC 32.9 31.8 - 35.4 g/dl 05/24/2016 10:48 AM CDT [facility] [employer] HISTORICAL RESULTS RDW 13.1 11.6 - 14.8 % 05/24/2016 10:48 AM CDT [facility] HISTORICAL RESULTS Plt Count 287 124 - 400 x10 3/ul 05/24/2016 10:48 AM CDT [facility] HISTORICAL RESULTS MPV 9.5 7.4 - 10.4 fl 05/24/2016 10:48 AM CDT [facility] HISTORICAL RESULTS Neut % 57.9 37.0 - 85.0 % Immature Gran % 0.3 0.0 - 3.0 % Lymph % 30.8 5.0 - 45.0 % Dodge % 8.7 3.0 - 15.0 % Eos % 1.7 0.0 - 7.0 % Baso % 0.6 0.0 - 2.0 % Absolute Neuts (auto) 4.1 1.7 - 8.7 x10 3/ul Immature Gran # 0.0 0.0 - 0.3 x10 3/ul Absolute Lymphs (auto) 2.2 0.2 - 4.6 x10 3/ul Absolute Monos (auto) 0.6 0.1 - 1.5 x10 3/ul Absolute Eos (auto) 0.1 0.0 - 0.7 x10 3/ul Absolute Basos (auto) 0.0 0.0 - 0.2 x10 3/ul 05/24/2016 10:3 8 AM CDT 05/24/2016 10:44 AM CDT us [facility] BLOOD ORDERABLES Final Resu lt [facility] HISTORICAL RESULTS * (ABNORMAL) UA with Culture Reflex (05/24/2016 10:05 AM CDT) Ur Collection Type CLEAN CATCH Ur Culture Indicated? C&S NOT INDICATED Urine Color STRAW YELLOW Urine Clarity CLEAR CLEAR Urine Glucose (UA) NORMAL NORMAL mg/dL Urine Bilirubin NEGATIVE NEGATIVE mg/dl Urine Ketones NEGATIVE NEGATIVE mg/dL Ur Specific [place] 1.014 1.005 - 1.025 Urine Blood 0.03(H) NEGATIVE mg/dl Urine pH 6.0 5.0 - 8.0 Urine Protein NEGATIVE NEGATIVE mg/dL Urine Urobilinogen NORMAL NORMAL mg/dL Urine Nitrite NEGATIVE NEGATIVE Ur Leukocyte Esterase NEGATIVE NEGATIVE Stephanie/ul Ur Microscopic Review Not Indicated Urine RBC 2 0 - 2 /HPF Urine WBC 1 0 - 2 /HPF Urine Bacteria Rare /HPF Urine Mucus RARE /LPF Ur Squamous Epith Cells Rare /LPF 05/24/2016 10:0 5 AM CDT 05/24/2016 10:45 AM CDT Narrative [facility] HISTORICAL RESULTS - 05/24/2016 10:55 AM CDT Indication(s) for ordering ? Pain-pelv/flank/suprapubc [facility] URINE ORDERABLES Final Resu lt [facility] HISTORICAL RESULTS * CT Abdomen Pelvis W Contrast (05/24/2016 12:00 AM CDT) Anatomical Region Laterality Modality Body N/A Computed Tomogra phy 05/24/2016 Impressions 05/24/2016 11:35 AM CDT ?? 1. ??No obstructing urolithiasis, hydronephrosis or hydroureter. ??No ureteral or bladder calculus. 2. ??Diverticulosis. ??There is complete decompression of the left hemicolon limiting evaluation. 3. ??Appendix normal. 4. ??Uterus and ovaries unremarkable. 5. ??Cholecystectomy changes without obvious local sequelae. 6. ??Sub centimeter right renal cyst Automated exposure control was used as a dose optimization technique for this examination. THIS IS AN ELECTRONICALLY VERIFIED REPORT 05/24/2016 11:32 AM: ??Julia Merlos M.D. ?? Julia Merlos M.D. TB:tb 11:32 AM 11:32 AM [facility] [EOD] Narrative 05/24/2016 11:35 AM CDT EXAMINATION: ??CT abdomen and pelvis with contrast HISTORY: Left flank pain, nausea, vomiting and diarrhea. ??Symptoms for 1 week. History of nephrolithiasis and ovarian cyst. ??Surgical history includes prior cholecystectomy. TECHNIQUE: ??Axial images were obtained through the abdomen and pelvis following intravenous administration of 100 mL of Omnipaque 350 via a right antecubital IV at 11:12 a.m. without immediate adverse reaction. ??Sagittal and coronal reconstructions were performed. COMPARISON: ??06/30/13 and 02/15/11 FINDINGS: ??The lung bases are clear. ??There is no pleural or pericardial effusion. The liver is homogeneous, without a focal mass. ??The postcholecystectomy biliary tree is unremarkable. ??The pancreas, spleen and the adrenal glands are unremarkable in appearance. ??The abdominal aorta is normal in caliber. ??There is no mesenteric or retroperitoneal lymphadenopathy. ??Circumaortic left renal vein is noted. There is no hydronephrosis or hydroureter. ??There is a 7 mm hypodense lesion in the lateral cortex of the right kidney, likely a cyst. There is no perinephric collection. Bowel loops are normal in caliber. ??The appendix is not normal. ??There is no obstruction. ??There is no free intraperitoneal air. ??There is no significant free fluid. ??There is diverticulosis noted within the left hemicolon. ??Left hemicolon is completely decompressed, limiting evaluation. The urinary bladder is unremarkable in appearance. ??The uterus is normal in size. ??Several ovarian follicles are demonstrated bilaterally, similar to prior examinations. ??There is no free intraperitoneal air. ??There is no significant free pelvic fluid. ??No inguinal or pelvic adenopathy. ??The osseous structures reveal no acute process. Procedure Note Provider, MD Kenneth - 06/22/2020 EXAMINATION: CT abdomen and pelvis with contrast HISTORY: Left flank pain, nausea, vomiting and diarrhea. Symptoms for 1week. History of nephrolithiasis and ovarian cyst. Surgical history includesprior cholecystectomy. TECHNIQUE: Axial images were obtained through the abdomen and pelvis following intravenous administration of 100 mL of Omnipaque 350 via aright antecubital IV at 11:12 a.m. without immediate adverse reaction. [place] coronal reconstructions were performed. COMPARISON: 06/30/13 and 02/15/11 FINDINGS: The lung bases are clear. There is no pleural or pericardial effusion. The liver is homogeneous, without a focal mass. The postcholecystectomy biliary tree is unremarkable. The pancreas, spleen and the adrenal glandsare unremarkable in appearance. The abdominal aorta is normal in caliber.There is no mesenteric or retroperitoneal lymphadenopathy. Circumaortic leftrenal vein is noted. There is no hydronephrosis or hydroureter. There is a 7 mm hypodenselesion in the lateral cortex of the right kidney, likely a cyst. There is no perinephric collection. Bowel loops are normal in caliber. The appendix is not normal. There isno obstruction. There is no free intraperitoneal air. There is nosignificant free fluid. There is diverticulosis noted within the left hemicolon.Left hemicolon is completely decompressed, limiting evaluation. The urinary bladder is unremarkable in appearance. The uterus is normalin size. Several ovarian follicles are demonstrated bilaterally, similar to prior examinations. There is no free intraperitoneal air. There is no significant free pelvic fluid. No inguinal or pelvic adenopathy. Theosseous structures reveal no acute process. IMPRESSION: 1. No obstructing urolithiasis, hydronephrosis or hydroureter. Noureteral or bladder calculus. 2. Diverticulosis. There is complete decompression of the left hemicolon limiting evaluation. 3. Appendix normal. 4. Uterus and ovaries unremarkable. 5. Cholecystectomy changes without obvious local sequelae. 6. Sub centimeter right renal cyst Automated exposure control was used as a dose optimization technique forthis examination. THIS IS AN ELECTRONICALLY VERIFIED REPORT 05/24/2016 11:32 AM: Julia Merlos M.D. Julia Merlos M.D. TB:prince 11:32 AM 11:32 AM [facility] [EOD] Adonis ALVAREZ CT PROCEDURES Final Result documented in this encounter Visit Diagnoses Diagnosis Acquired cyst of kidney Diverticulosis of intestine without perforation or abscess without bleeding documented in this encounter
--- OUTSIDE RECORDS SUMMARY | 2024-02-17 13:58 | XMS_ITS | Encounter Summary ---
Author Organization [facility] Healthcare Address [address] [place] [address] Care Team Providers Care Poiser Balance Name Role Phone Unavailable Primary Care Provider Unavailabl e Encounter Details Date Type Department Care Team (Late st Contact Info) Description 07/23/2014 11:53 AM CDT Hospital Encounter [facility] Macy Cordova MD [address] [address] Encounter for anatomic survey Social History Tobacco Use Types Packs/Day Years Used Date Smoking Tobacco: Never Assessed Comments Unknown Sex and Gender Information Value Date Recorded Sex Assigned at Not on file 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 1. ??Single live intrauterine gestation with breech presentation. ?? 2. ??The fetus has demonstrated a proper interval growth. 3. ??No anatomic anomaly is identified. THIS IS AN ELECTRONICALLY VERIFIED REPORT 07/26/2014 10:54 PM: ??Simeon Krishna M.D. Simeon Krishna M.D. JA:cali 10:18 AM 10:23 AM [facility] [EOD] Narrative 07/26/2014 11:06 PM CDT EXAMINATION: ??OB ULTRASOUND HISTORY: ??Anatomic survey Gestational age by prior ultrasound: ??18 w 1 d YOBANI by prior ultrasound:December 24, 2014 ?? number:One Presentation:Breech Placenta location:Anterior Amniotic fluid:Adequate S = seen with no gross abnormality identified A = abnormal NC = not clearly seen NS = not seen on current exam Body movement:S ?? cardiac activity: S heart rate: 147 beats per minuted Intracranial anatomy: S Heart (4 chamber): ??S Spine:S Stomach:S Renal Areas:S Bladder:S Cord insert/abd wall:S Three vessel cord:S Diaphragm:S Extremities:S Measurements: ?? BPD: ??3.84 cm17 w5 d HC:14.96 cm18 w1 d AC:12.57 cm18 w2 d FL: ??2.51 cm17 w5 d Ratios: ??FL/AC: ??20 (20-24) HC/AC: ??1.19 (1.07 - 1.29) Gestational Age by this ultrasound:18 w0 d YOBANI by this ultrasound:December 25, 2014 EFW by this ultrasound:215 +/-31 grams (0 lb. 8 oz. +/- 0 lb. 1 oz.) Procedure Note Provider, MD Kenneth - 06/22/2020 EXAMINATION: OB ULTRASOUND HISTORY: Anatomic survey Gestational age by prior ultrasound: 18 w 1 d YOBANI by prior ultrasound:December 24, 2014 number:One Presentation:Breech Placenta location:Anterior Amniotic fluid:Adequate S = seen with no gross abnormality identified A = abnormal NC = not clearly seen NS = not seen on current exam Body movement:S cardiac activity: S heart rate: 147 beats per minuted Intracranial anatomy: S Heart (4 chamber): S Spine:S Stomach:S Renal Areas:S Bladder:S Cord insert/abd wall:S Three vessel cord:S Diaphragm:S Extremities:S Measurements: BPD: 3.84 cm17 w5 d HC:14.96 cm18 w1 d AC:12.57 cm18 w2 d FL: 2.51 cm17 w5 d Ratios: FL/AC: 20 (20-24) HC/AC: 1.19 (1.07 - 1.29) Gestational Age by this ultrasound:18 w0 d YOBANI by this ultrasound:December 25, 2014 EFW by this ultrasound:215 +/-31 grams (0 lb. 8 oz. +/- 0 lb. 1 oz.) IMPRESSION: 1. Single live intrauterine gestation with breech presentation. 2. The fetus has demonstrated a proper interval growth. 3. No anatomic anomaly is identified. THIS IS AN ELECTRONICALLY VERIFIED REPORT 07/26/2014 10:54 PM: Simeon Krishna M.D. Simeon Krishna M.D. JA:cali 10:18 AM 10:23 AM [facility] [EOD] Macy Lui MD IMG MRI PROCEDURES Final Result documented in this encounter Visit Diagnoses Diagnosis Encounter for anatomic survey documented in this encounter
--- OUTSIDE RECORDS SUMMARY | 2024-02-17 13:58 | XMS_ITS | Encounter Summary ---
Author Organization [facility] Healthcare Address [address] [place] [address] Care Team Providers Care Flight Kitchen Manager Name Role Phone Unavailable Primary Care Provider Unavailabl e Encounter Details Date Type Department Care Team (Latest Contact Info) Description 11/13/2017 9:31 AM CDT - 11/13/2017 2:31 PM CDT Hospital Encounter [facility] ChataJeff feldman Jr., MD [address] [place] [address] Threatened ; Respiratory system disease complicating in first trimester; Uncomplicated asthma; Weeks of gestation of not specified; Contact with and (suspected) exposure to environmental tobacco smoke (acute) (chronic) Social History Tobacco Use Types Packs/Day Years Used Date Smoking Tobacco: Never Assessed Comments Unknown Sex and Gender Information Value Date Recorded Sex Assigned at Not on file 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 Gender Identity Female 07/16/2022 10:05 AM CDT Sexual Orientation Straight 07/16/2022 10 :05 AM CDT documented as of this encounter Last Filed Vital Signs Vital Sign Reading Time Taken Comments Blood Pressure 99/69 11/13/2017 10:14 AM CDT Pulse 81 11/13/2017 10:14 AM CDT Temperature 36.7 ??C (98.1 ??F) 11/13/2017 10:14 AM C DT Respiratory Rate - - Oxygen Saturation 98% 11/13/2017 10:14 AM CDT Inhaled Oxygen Concentration - - Weight 79.4 kg (175 lb 0.8 oz) 11/13/2017 10:14 AM CDT Height 165.1 cm (5' 5 ) 11/13/2017 10:14 AM CDT Body Mass Index 29.13 11/13/2017 10:14 AM CDT documented in this encounter Plan of Treatment Not on file documented as of this encounter Procedures Procedure Name Priority Date/Time Associated Diagnosis Comments CBC WITH AUTO DIFFERENTIAL Routine 11/13/2017 10:31 AM CDT APTT Routine 11/13/2017 10:31 AM CDT PROTIME-INR Routine 11/13/2017 10:31 AM CDT HCG, BLOOD, QUANTITATIVE Routine 11/13/2017 10:31 AM CDT COMPREHENSIVE METABOLIC PANEL Routine 11/13/2017 10:31 AM CDT US ABDOMEN COMPLETE W LIVER DOPPLER (C) Routine 11/13/2017 12:00 AM CDT US OB TRANSVAGINAL Routine 11/13/2017 12 :00 AM CDT documented in this encounter Results * Protime-INR (11/13/2017 10:31 AM CDT) PT 12.3 11.8 - 14.5 SECONDS INR 0.91 Comment: Recommended Therapeutic range for Oral Anticoagulant Therapy No anti-coagulation therapy ? Normal Range: ?0.8-1.4 Anti-coagulation therapy ? Low intensity therapy ?2.0-3.0 ? High intensity therapy ?? 2.5-3.5 Critical Value ? Greater than or equal to 5.0 Patients should be monitored for serious bleeding. ?? 11/13/2017 10:3 1 AM CDT 11/13/2017 10:45 AM CDT Yocasta Echo Isbell POWERHOUSE TENDER LAB BLOOD ORDERABLES Final Res ult Performing Organization Address [facility] Co de Phone Number [facility] HISTORICAL RESULTS * aPTT (11/13/2017 10:31 AM CDT) APTT 28 26 - 33 SECONDS 11/13/2017 10:3 1 AM CDT 11/13/2017 10:45 AM CDT Yocasta Echo Alcantarairaj POWERHOUSE TENDER LAB BLOOD ORDERABLES Final Res ult Performing Organization Address [facility] de Phone Number [facility] HISTORICAL RESULTS * Comprehensive metabolic panel (11/13/2017 10:31 AM CDT) Sodium 141 135 - 145 mmol/L Potassium 3.9 3.3 - 5.1 mmol/L Chloride 105 96 - 108 mmol/L Carbon Dioxide 25 22 - 32 mmol/L Anion Gap 11 7 - 16 Glucose 95 70 - 100 mg/dL BUN 12 6 - 20 mg/dL Creatinine 0.6 0.5 - 1.1 mg/dL Comment: NOTE: Estimated GFR (Cockroft-Gault) will NOT be calculated unless patient Height and Weight were entered. Also, Kidney Disease Stage (GFR) and Estimated GFR (Cockroft-Gault) will NOT be calculated if Creatinine result is <0.2. Kidney Disease Stage > 90 mL/MIN 11/13/2017 11:09 AM [facility] HISTORICAL RESULTS Comment: NOTE; ??The GFR is [...] or on dialysis @ Est GFR (Cockcroft-G) 149 ml/MIN 11/13/2017 11:09 AM [facility] HISTORICAL RESULTS Comment: Estimated GFR(Cockroft-Gault)is used to calculate patient medication dosage Calcium 8.7 8.6 - 10.0 mg/dL 11/13/2017 11:09 AM [facility] HISTORICAL RESULTS Total Protein 6.8 6.4 - 8.3 g/dL 11/13/2017 11:09 AM [facility] HISTORICAL RESULTS Albumin 4.2 3.5 - 5.2 g/dL 11/13/2017 11:09 AM [employer] [facility] [employer] HISTORICAL RESULTS Globulin 2.6 2.3 - 3.5 gm/dL 11/13/2017 11:09 AM [employer] HISTORICAL RESULTS Albumin/Globulin Ratio 1.6 1.1 - 1.8 11/13/2017 11:09 AM [employer] [facility] [employer] HISTORICAL RESULTS Total Bilirubin 0.5 0.0 - 1.2 mg/dL 11/13/2017 11:09 AM [employer] HISTORICAL RESULTS AST 12 0 - 32 U/L 11/13/2017 11:09 AM CDT [facility] [employer] HISTORICAL RESULTS ALT 10 0 - 33 U/L 11/13/2017 11:09 AM CDT [facility] H[facility] RES[facility] Alkaline Phosphatase 51 35 - 104 U/L 11/13/2017 11:09 AM CDT [facility] HISTORICAL RESULTS 11/13/2017 10:3 1 AM CDT 11/13/2017 10:45 AM CDT us Yocasta Isbell POWERHOUSE TENDER LAB BLOOD ORDERABLES Final Res ult [facility] HISTORICAL RESULTS * CBC with auto differential (11/13/2017 10:31 AM CDT) WBC 7.0 3.8 - 9.9 X10 3/ul 11/13/2017 10:47 AM CDT [facility] HISTORICAL RESULTS RBC 4.36 3.90 - 5.20 x10 6/ul 11/13/2017 10:47 AM CDT [facility] HISTORICAL RESULTS Hemoglobin 12.8 11.9 - 15.5 g/dL 11/13/2017 10:47 AM CDT [facility] HISTORICAL RESULTS Hct 39.2 35.6 - 45.5 % 11/13/2017 10:47 AM CDT [facility] HISTORICAL RESULTS MCV 89.9 81.3 - 96.4 fl 11/13/2017 10:47 AM CDT [facility] HISTORICAL RESULTS MCH 29.4 27.1 - 33.3 pg 11/13/2017 10:47 AM CDT [facility] [employer] HISTORICAL RESULTS MCHC 32.7 32.3 - 35.7 g/dl 11/13/2017 10:47 AM CDT [facility] [employer] HISTORICAL RESULTS RDW 13.0 11.1 - 14.9 % 11/13/2017 10:47 AM CDT [facility] [employer] HISTORICAL RESULTS Plt Count 318 150 - 400 x10 3/ul 11/13/2017 10:47 AM CDT [facility] HISTORICAL RESULTS MPV 9.4 9.1 - 12.3 fl 11/13/2017 10:47 AM CDT [facility] [employer] HISTORICAL RESULTS Neut % 59.1 % Immature Gran % 0.4 % 8 10:47 AM [facility] HISTORICAL RESULTS Lymph % 30.1 % Willacy % 8.2 % Eos % 1.3 % Baso % 0.9 % Absolute Neuts (auto) 4.1 1.7 - 6.5 x10 3/ul Immature Gran # 0.0 0.0 - 0.1 x10 3/ul Absolute Lymphs (auto) 2.1 0.8 - 3.3 x10 3/ul Absolute Monos (auto) 0.6 0.2 - 0.8 x10 3/ul Absolute Eos (auto) 0.1 0.0 - 0.5 x10 3/ul Absolute Basos (auto) 0.1 0.0 - 0.1 x10 3/ul Nucleat RBC Rel Count 0.0 #/100WBC Absolute Nucleated RBC 0.00 0.00 - 0.01 x10 3/ul Absolute Neutrophils 4100 200 - 8000 /ul 11/13/2017 10:3 1 AM CDT 11/13/2017 10:45 AM CDT us Yocasta Isbell POWERHOUSE TENDER LAB BLOOD ORDERABLES Final Res ult [facility] HISTORICAL RESULTS * (ABNORMAL) hCG, blood, quantitative (11/13/2017 10:31 AM CDT) Beta HCG, Quant 230.2(H) 0.0 - 4.0 mIU/mL Comment: Female Reference Intervals(): ??Negative ? < 5.0 mIU/mL ??Indeterminate ??5.0-25.0 mIU/mL ??Positive ? > 25.0 mIU/mL Values between 5.0 and 25.0 mIU/mL are indeterminate for . Repeat testing of indeterminate results is suggested in 72 hours. Plasma hCG levels cannot be used to date a . In normal , values should double every 48-72 hours for the first 6 weeks.In postmenopausal women, an hCG level up to 14.0 mIU/mL can be considered normal. This result is not interpretable as a tumor marker in females. 11/13/2017 10:3 1 AM CDT 11/13/2017 10:45 AM CDT us Yocasta Isbell NP LAB BLOOD ORDERABLES Final Res ult Performing Organization Address [facility] de Phone Number [facility] HISTORICAL RESULTS * US Abdomen Complete W Liver Doppler (C) (11/13/2017 12:00 AM CDT) Anatomical Region Laterality Modality Abdomen Right Ultrasound 11/13/2017 Impressions 11/13/2017 12:08 PM CDT ?? 1.No evidence of intrauterine or ectopic . ??The patient's beta hCG is low and possibly represents a very early . ??Recommend serial HCGs and follow-up ultrasound in 1-2 weeks. 2.Trace free fluid within the pelvis. THIS IS AN ELECTRONICALLY VERIFIED FINAL REPORT 11/13/2017 12:05 PM - Electronically signed by Ziyad Corcoran M.D. AG: EDUARDA D: ??11/13/2017 12:05 PM T: ??11/13/2017 12:05 PM Report ID: [id number] Reading Location: ??[id number] [EOD] Narrative 11/13/2017 12:08 PM CDT EXAM DESCRIPTION: ??US OB Transvaginal; US Duplex Scan Complete REASON FOR STUDY: ??27-year-old woman with vaginal bleeding and pelvic cramping for 3 days, worse today. ??Pelvic sonogram performed yesterday afternoon demonstrated no evidence of intrauterine or ectopic . ??Patient reports last menstrual period approximately 2 weeks ago. Beta-hCG: ??230.2 TECHNIQUE: ??Ultrasound of the pelvic contents was performed with transabdominal and transvaginal transducer. ??Grayscale and color doppler techniques were utilized. COMPARISON: ??11/12/2017 FINDINGS: UTERUS: The uterus is anteverted. The uterus is homogenous in echotexture and measures 8.1 x 5.1 x 3.8 cm. ENDOMETRIUM: The endometrium measures 6.3 mm in thickness, previously 6.8 mm.. RIGHT OVARY: The right ovary measures 4.7 x 2.5 x 3.6 cm. There is documentation of color Doppler flow in the right ovary. The right ovary appears unremarkable. ??No suspicious mass is seen. LEFT OVARY: The left ovary measures 4.5 x 2.0 x 2.1 cm. There is documentation of color Doppler flow in the left ovary. ??The left ovary appears unremarkable. No suspicious masses seen. PELVIC FLUID: Slight interval increase in trace free fluid within the pelvis. OTHER: No other significant findings. Procedure Note Provider, MD Kenneth - 06/22/2020 EXAM DESCRIPTION: US OB Transvaginal; US Duplex Scan Complete REASON FOR STUDY: 27-year-old woman with vaginal bleeding and pelviccramping for 3 days, worse today. Pelvic sonogram performed yesterday afternoon demonstrated no evidence of intrauterine or ectopic . Patient reports last menstrual period approximately 2 weeks ago. Beta-hC.2 TECHNIQUE: Ultrasound of the pelvic contents was performed with transabdominal and transvaginal transducer. Grayscale and color doppler techniques were utilized. COMPARISON: 11/12/2017 FINDINGS: UTERUS: The uterus is anteverted. The uterus is homogenous in echotextureand measures 8.1 x 5.1 x 3.8 cm. ENDOMETRIUM: The endometrium measures 6.3 mm in thickness, previously 6.8mm.. RIGHT OVARY: The right ovary measures 4.7 x 2.5 x 3.6 cm. There is documentation of color Doppler flow in the right ovary. The right ovary appears unremarkable. No suspicious mass is seen. LEFT OVARY: The left ovary measures 4.5 x 2.0 x 2.1 cm. There isdocumentation of color Doppler flow in the left ovary. The left ovary appearsunremarkable. No suspicious masses seen. PELVIC FLUID: Slight interval increase in trace free fluid within thepelvis. OTHER: No other significant findings. IMPRESSION: 1.No evidence of intrauterine or ectopic . The patient's betahCG is low and possibly represents a very early . Recommend serial HCGsand follow-up ultrasound in 1-2 weeks. 2.Trace free fluid within the pelvis. THIS IS AN ELECTRONICALLY VERIFIED FINAL REPORT 11/13/2017 12:05 PM - Electronically signed by Ziyad Corcoran M.D. AG: EDUARDA Report ID: [id number] Reading Location: [id number] [EOD] us Yocatsa Isbell NP IMG US PROCEDURES Final Result * US Ob Transvaginal (11/13/2017 12:00 AM CDT) Anatomical Region Laterality Modality Abdomen N/A Ultrasound 11/13/2017 Impressions 11/13/2017 12:08 PM CDT ?? 1.No evidence of intrauterine or ectopic . ??The patient's beta hCG is low and possibly represents a very early . ??Recommend serial HCGs and follow-up ultrasound in 1-2 weeks. 2.Trace free fluid within the pelvis. THIS IS AN ELECTRONICALLY VERIFIED FINAL REPORT 11/13/2017 12:05 PM - Electronically signed by Ziyad Corcoran M.D. AG: EDUARDA D: ??11/13/2017 12:05 PM T: ??11/13/2017 12:05 PM Report ID: [id number] Reading Location: ??[id number] [EOD] Narrative 11/13/2017 12:08 PM CDT EXAM DESCRIPTION: ??US OB Transvaginal; US Duplex Scan Complete REASON FOR STUDY: ??27-year-old woman with vaginal bleeding and pelvic cramping for 3 days, worse today. ??Pelvic sonogram performed yesterday afternoon demonstrated no evidence of intrauterine or ectopic . ??Patient reports last menstrual period approximately 2 weeks ago. Beta-hCG: ??230.2 TECHNIQUE: ??Ultrasound of the pelvic contents was performed with transabdominal and transvaginal transducer. ??Grayscale and color doppler techniques were utilized. COMPARISON: ??11/12/2017 FINDINGS: UTERUS: The uterus is anteverted. The uterus is homogenous in echotexture and measures 8.1 x 5.1 x 3.8 cm. ENDOMETRIUM: The endometrium measures 6.3 mm in thickness, previously 6.8 mm.. RIGHT OVARY: The right ovary measures 4.7 x 2.5 x 3.6 cm. There is documentation of color Doppler flow in the right ovary. The right ovary appears unremarkable. ??No suspicious mass is seen. LEFT OVARY: The left ovary measures 4.5 x 2.0 x 2.1 cm. There is documentation of color Doppler flow in the left ovary. ??The left ovary appears unremarkable. No suspicious masses seen. PELVIC FLUID: Slight interval increase in trace free fluid within the pelvis. OTHER: No other significant findings. Procedure Note Provider, MD Kenneth - 06/22/2020 EXAM DESCRIPTION: US OB Transvaginal; US Duplex Scan Complete REASON FOR STUDY: 27-year-old woman with vaginal bleeding and pelviccramping for 3 days, worse today. Pelvic sonogram performed yesterday afternoon demonstrated no evidence of intrauterine or ectopic . Patient reports last menstrual period approximately 2 weeks ago. Beta-hC.2 TECHNIQUE: Ultrasound of the pelvic contents was performed with transabdominal and transvaginal transducer. Grayscale and color doppler techniques were utilized. COMPARISON: 11/12/2017 FINDINGS: UTERUS: The uterus is anteverted. The uterus is homogenous in echotextureand measures 8.1 x 5.1 x 3.8 cm. ENDOMETRIUM: The endometrium measures 6.3 mm in thickness, previously 6.8mm.. RIGHT OVARY: The right ovary measures 4.7 x 2.5 x 3.6 cm. There is documentation of color Doppler flow in the right ovary. The right ovary appears unremarkable. No suspicious mass is seen. LEFT OVARY: The left ovary measures 4.5 x 2.0 x 2.1 cm. There isdocumentation of color Doppler flow in the left ovary. The left ovary appearsunremarkable. No suspicious masses seen. PELVIC FLUID: Slight interval increase in trace free fluid within thepelvis. OTHER: No other significant findings. IMPRESSION: 1.No evidence of intrauterine or ectopic . The patient's betahCG is low and possibly represents a very early . Recommend serial HCGsand follow-up ultrasound in 1-2 weeks. 2.Trace free fluid within the pelvis. THIS IS AN ELECTRONICALLY VERIFIED FINAL REPORT 11/13/2017 12:05 PM - Electronically signed by Ziyad Corcoran M.D. AG: EDUARDA Report ID: [id number] Reading Location: [id number] [EOD] us Yocasta Isbell NP IMG OB US PROCEDURES Final Res ult documented in this encounter Visit Diagnoses Diagnosis Threatened Respiratory system disease complicating in first trimester Uncomplicated asthma Weeks of gestation of not specified Contact with and (suspected) exposure to environmental tobacco smoke (acute) (chronic) documented in this encounter
--- OUTSIDE RECORDS SUMMARY | 2024-02-17 13:58 | XMS_ITS | Encounter Summary ---
Author Organization [facility] Healthcare Address [address] [place] [address] Care Team Providers Care Manager Beauty Name Role Phone Unavailable Primary Care Provider Unavailabl e Encounter Details Date Type Department Care Team (Latest Contact Info) Description 07/03/2012 11:58 AM CDT - 07/03/2012 1:29 PM CDT Hospital Encounter [facility] ER Abdominal pain of other specified site; Cellulitis and abscess of leg Social History Tobacco Use Types Packs/Day Years Used Date Smoking Tobacco: Never Assessed Comments Unknown Sex and Gender Information Value Date Recorded Sex Assigned at Not on file 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 Gender Identity Female 07/16/2022 10:05 AM CDT Sexual Orientation Straight 07/16/2022 10 :05 AM CDT documented as of this encounter Last Filed Vital Signs Vital Sign Reading Time Taken Comments Blood Pressure 118/84 07/03/2012 12:00 PM CDT Pulse 107 07/03/2012 12:00 PM CDT Temperature 36.7 ??C (98.1 ??F) 07/03/2012 12:00 PM C DT Respiratory Rate - - Oxygen Saturation 100% 07/03/2012 12:00 PM CDT Inhaled Oxygen Concentration - - Weight 68 kg (150 lb) 07/03/2012 12:00 PM CDT Height 165.1 cm (5' 5 ) 07/03/2012 12:00 PM CDT Body Mass Index 24.96 07/03/2012 12:00 PM CDT documented in this encounter Plan of Treatment Not on file documented as of this encounter Visit Diagnoses Diagnosis Abdominal pain of other specified site Cellulitis and abscess of leg Cellulitis and abscess of leg, except foot documented in this encounter
--- OUTSIDE RECORDS SUMMARY | 2024-02-17 13:58 | XMS_ITS | Encounter Summary ---
Author Organization [facility] Healthcare Address [address] [place] [address] Care Team Providers Care Waiter/Waitress Second Class Name Role Phone Unavailable Primary Care Provider Unavailabl e Encounter Details Date Type Department Care Team (Latest Contact Info) Description 11/14/2017 11:05 AM CDT Hospital Encounter [facility] Yocasta Andersen, MUSIC CRITIC [address] [facility] [place] [address] Threatened Social History Tobacco Use Types Packs/Day Years Used Date Smoking Tobacco: Never Assessed Comments Unknown Sex and Gender Information Value Date Recorded Sex Assigned at Not on file 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 11/14/2017 11:2 5 AM CDT 11/14/2017 11:37 AM CDT Yocasta Isbell NP LAB BLOOD ORDERABLES Final Res ult [facility] HISTORICAL RESULTS documented in this encounter Visit Diagnoses Diagnosis Threatened documented in this encounter
--- OUTSIDE RECORDS SUMMARY | 2024-02-17 13:58 | XMS_ITS | Encounter Summary ---
Author Organization [facility] Healthcare Address [address] [place] [address] Care Team Providers Care Critical Care Nurse Name Role Phone Unavailable Primary Care Provider Unavailabl e Encounter Details Date Type Department Care Team (Latest Contact Info) Description 11/12/2017 1:43 PM CDT - 11/12/2017 6:23 PM CDT Hospital Encounter [facility] Shamar Dejesus MD [address] [facility] [place] [address] Complete or unspecified spontaneous without complication; Nicotine dependence, uncomplicated; Allergy status to other antibiotic agents status; Allergy status to analgesic agent Social History Tobacco Use Types Packs/Day Years Used Date Smoking Tobacco: Never Assessed Comments Unknown Sex and Gender Information Value Date Recorded Sex Assigned at Not on file Legal Sex Female 5:56 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 Gender Identity Female 07/16/2022 10:05 AM CDT Sexual Orientation Straight 07/16/2022 10 :05 AM CDT documented as of this encounter Last Filed Vital Signs Vital Sign Reading Time Taken Comments Blood Pressure 103/63 11/12/2017 1:48 PM CDT Pulse 82 11/12/2017 1:48 PM CDT Temperature 37.1 ??C (98.7 ??F) 11/12/2017 1:48 PM CD T Respiratory Rate - - Oxygen Saturation 97% 11/12/2017 1:48 PM CDT Inhaled Oxygen Concentration - - Weight 79.9 kg (176 lb 2.4 oz) 11/12/2017 1:48 P M CDT Height 165.1 cm (5' 5 ) 11/12/2017 1:48 PM CDT Body Mass Index 29.31 11/12/2017 1:48 PM CDT documented in this encounter Plan of Treatment Not on file documented as of this encounter Procedures Procedure Name Priority Date/Time Associated Diagnosis Comments CBC WITH AUTO DIFFERENTIAL Routine 11/12/2017 2:20 PM CDT HCG, BLOOD, QUANTITATIVE Routine 11/12/2017 2:20 PM CDT COMPREHENSIVE METABOLIC PANEL Routine 11/12/2017 2:20 PM CDT URINALYSIS, MACRO AND MICRO Routine 11/12/2017 1:55 PM CDT US ABDOMEN COMPLETE W LIVER DOPPLER (C) Routine 11/12/2017 12:00 AM CDT US TRANSVAGINAL Routine 11/12/2017 12:00 AM CDT documented in this encounter Results * Comprehensive metabolic panel (11/12/2017 2:20 PM CDT) Sodium 139 135 - 145 mmol/L 11/12/2017 3:13 PM CDT [facility] HISTORICAL RESULTS Potassium 3.6 3.3 - 5.1 mmol/L 11/12/2017 3:13 PM CDT [facility] [employer] [employer] HISTORICAL RESULTS Chloride 103 96 - 108 mmol/L 11/12/2017 3:13 PM CDT [facility] HISTORICAL RESULTS Carbon Dioxide 24 22 - 32 mmol/L 11/12/2017 3:13 PM CDT [facility] [employer] HISTORICAL RESULTS Anion Gap 12 7 - 16 11/12/2017 3:13 PM CDT [facility] [employer] HISTORICAL RESULTS Glucose 84 70 - 100 mg/dL 11/12/2017 3:13 PM CDT [facility] [employer] HISTORICAL RESULTS BUN 14 6 - 20 mg/dL 11/12/2017 3:13 PM CDT [facility] [employer] HISTORICAL RESULTS Creatinine 0.6 0.5 - 1.1 mg/dL 11/12/2017 3:13 PM CDT [facility] [employer] HISTORICAL RESULTS Comment: NOTE: Estimated GFR (Cockroft-Gault) [...] or on dialysis @ Est GFR (Cockcroft-G) 150 ml/MIN Comment: Estimated GFR(Cockroft-Gault)is used to calculate patient medication dosage Calcium 8.7 8.6 - 10.0 mg/dL Total Protein 7.0 6.4 - 8.3 g/dL Albumin 4.3 3.5 - 5.2 g/dL Globulin 2.7 2.3 - 3.5 gm/dL Albumin/Globulin Ratio 1.6 1.1 - 1.8 Total Bilirubin 0.5 0.0 - 1.2 mg/dL AST 13 0 - 32 U/L ALT 11 0 - 33 U/L Alkaline Phosphatase 53 35 - 104 U/L 11/12/2017 2:20 PM CDT 11/12/2017 2:39 PM CDT Yocasta Isbell [facility] BLOOD ORDERABLES Final Res ult [facility] HISTORICAL RESULTS * CBC with auto differential (11/12/2017 2:20 PM CDT) WBC 8.6 3.8 - 9.9 X10 3/ul RBC 4.42 3.90 - 5.20 x10 6/ul Hemoglobin 13.2 11.9 - 15.5 g/dL Hct 39.6 35.6 - 45.5 % MCV 89.6 81.3 - 96.4 fl MCH 29.9 27.1 - 33.3 pg MCHC 33.3 32.3 - 35.7 g/dl RDW 12.8 11.1 - 14.9 % Plt Count 323 150 - 400 x10 3/ul MPV 9.3 9.1 - 12.3 fl Neut % 63.6 % Immature Gran % 0.5 % 8 2:43 PM [facility] HISTORICAL RESULTS Lymph % 26.5 % Routt % 7.8 % Eos % 0.8 % Baso % 0.8 % Absolute Neuts (auto) 5.5 1.7 - 6.5 x10 3/ul Immature Gran # 0.0 0.0 - 0.1 x10 3/ul Absolute Lymphs (auto) 2.3 0.8 - 3.3 x10 3/ul Absolute Monos (auto) 0.7 0.2 - 0.8 x10 3/ul Absolute Eos (auto) 0.1 0.0 - 0.5 x10 3/ul Absolute Basos (auto) 0.1 0.0 - 0.1 x10 3/ul Nucleat RBC Rel Count 0.0 #/100WBC Absolute Nucleated RBC 0.00 0.00 - 0.01 x10 3/ul Absolute Neutrophils 5500 200 - 8000 /ul 11/12/2017 2:20 PM CDT 11/12/2017 2:39 PM CDT Yocasta Isbell LAB BLOOD ORDERABLES Final Res ult Performing Organization Address [facility] de Phone Number [facility] HISTORICAL RESULTS * (ABNORMAL) hCG, blood, quantitative (11/12/2017 2:20 PM CDT) Pathologist [facility] Beta HCG, Quant 239.2(H) 0.0 - 4.0 mIU/mL Comment: Female Reference [...] interpretable as a tumor marker in females. 11/12/2017 2:20 PM CDT 11/12/2017 2:39 PM CDT Yocasta Isbell LAB BLOOD ORDERABLES Final Res ult Performing Organization Address [facility] de Phone Number [facility] HISTORICAL RESULTS * (ABNORMAL) Urinalysis, macro and micro (11/12/2017 1:55 PM CDT) [facility] Ur Collection Type CLEAN CATCH Urine Color RED YELLOW Urine Clarity CLOUDY CLEAR Urine Glucose (UA) NORMAL NORMAL mg/dL Urine Bilirubin NEGATIVE NEGATIVE mg/dl Urine Ketones NEGATIVE NEGATIVE mg/dL Ur Specific [place] 1.023 1.005 - 1.025 Urine Blood >=1.0 NEGATIVE mg/dl Urine pH 5.0 5.0 - 8.0 Urine Protein 100(H) NEGATIVE mg/dL Urine Urobilinogen NORMAL NORMAL mg/dL Urine Nitrite NEGATIVE NEGATIVE Ur Leukocyte Esterase 250(H) NEGATIVE Stephanie/ul Ur Microscopic Review Indicated or Ordered Urine RBC 5141 0 - 2 /HPF Urine WBC 30 0 - 2 /HPF Urine Mucus Many /LPF Ur Squamous Epith Cells Mod /LPF 11/12/2017 1:55 PM CDT 11/12/2017 2:36 PM T Narrative [facility] HISTORICAL RESULTS - 11/12/2017 3:21 PM T us Yocasta Isbell [facility] URINE ORDERABLES Final Res ult [facility] HISTORICAL RESULTS * US Transvaginal (11/12/2017 12:00 AM CDT) Anatomical Region Laterality Modality Pelvis N/A Ultrasound 11/12/2017 Impressions 11/12/2017 3:42 PM CDT ?? 1.No evidence of intrauterine or ectopic . ??Recommend correlation with beta HCG. 2.Unremarkable appearing nongravid uterus and bilateral ovaries. 3.Small amount of pelvic free fluid, within physiologic limits. THIS IS AN ELECTRONICALLY VERIFIED FINAL REPORT 11/12/2017 3:39 PM - Electronically signed by Richi Suresh M.D. MD: D: ??11/12/2017 3:39 PM T: ??11/12/2017 3:39 PM Report ID: [id number] Reading Location: ??[id number] [EOD] Narrative 11/12/2017 3:42 PM CDT EXAM DESCRIPTION: ??US Transvaginal; US Duplex Scan Complete REASON FOR STUDY: ??27-year-old female with vaginal bleeding and pelvic cramping/pain for 2 days. ??History of PCOS with regular cycles. ??Patient on infertility medication, Clomid and metformin. ??Provided paperwork notes that patient is . ??Beta hCG pending (not available at time of imaging). ?? Patient reports LMP 2 weeks ago. TECHNIQUE: ??Ultrasound of the pelvic contents was performed with transvaginal transducer. ??Grayscale and color doppler techniques were utilized. COMPARISON: ??CT abdomen/pelvis 05/24/2016 FINDINGS: UTERUS: The uterus is anteverted. The uterus is homogenous in echotexture and measures 8.6 x 5.6 x 3.6 cm. ENDOMETRIUM: The endometrium measures 0.7 cm in thickness. ??No intrauterine is visualized. RIGHT OVARY/ADNEXA: The right ovary measures 3.7 x 1.7 x 2.7 cm. There is documentation of color Doppler flow in the right ovary. The right ovary appears unremarkable. ??No suspicious adnexal mass is identified. LEFT OVARY/ADNEXA: The left ovary measures 3.5 x 1.8 x 1.9 cm. There is documentation of color Doppler flow in the left ovary. ??The left ovary appears unremarkable. ??No suspicious adnexal mass is identified. PELVIC FLUID: Small amount of free fluid within the pelvis, within physiologic limits. OTHER: No other significant findings. Procedure Note Provider, MD Kenneth - 06/22/2020 EXAM DESCRIPTION: US Transvaginal; US Duplex Scan Complete REASON FOR STUDY: 27-year-old female with vaginal bleeding and pelvic cramping/pain for 2 days. History of PCOS with regular cycles. Patienton infertility medication, Clomid and metformin. Provided paperwork notesthat patient is . Beta hCG pending (not available at time of imaging). Patient reports LMP 2 weeks ago. TECHNIQUE: Ultrasound of the pelvic contents was performed withtransvaginal transducer. Grayscale and color doppler techniques were utilized. COMPARISON: CT abdomen/pelvis 05/24/2016 FINDINGS: UTERUS: The uterus is anteverted. The uterus is homogenous in echotextureand measures 8.6 x 5.6 x 3.6 cm. ENDOMETRIUM: The endometrium measures 0.7 cm in thickness. Nointrauterine is visualized. RIGHT OVARY/ADNEXA: The right ovary measures 3.7 x 1.7 x 2.7 cm. There is documentation of color Doppler flow in the right ovary. The right ovary appears unremarkable. No suspicious adnexal mass is identified. LEFT OVARY/ADNEXA: The left ovary measures 3.5 x 1.8 x 1.9 cm. There is documentation of color Doppler flow in the left ovary. The left ovaryappears unremarkable. No suspicious adnexal mass is identified. PELVIC FLUID: Small amount of free fluid within the pelvis, withinphysiologic limits. OTHER: No other significant findings. IMPRESSION: 1.No evidence of intrauterine or ectopic . Recommend correlation with beta HCG. 2.Unremarkable appearing nongravid uterus and bilateral ovaries. 3.Small amount of pelvic free fluid, within physiologic limits. THIS IS AN ELECTRONICALLY VERIFIED FINAL REPORT 11/12/2017 3:39 PM - Electronically signed by Richi Suresh M.D., MD: Report ID: [id number] Reading Location: [place] [id number] [EOD] us Yocasta Isbell NP IMG US PROCEDURES Final Result * US Abdomen Complete W Liver Doppler (C) (11/12/2017 12:00 AM CDT) Anatomical Region Laterality Modality Abdomen Right Ultrasound 11/12/2017 Impressions 11/12/2017 3:42 PM CDT ?? 1.No evidence of intrauterine or ectopic . ??Recommend correlation with beta HCG. 2.Unremarkable appearing nongravid uterus and bilateral ovaries. 3.Small amount of pelvic free fluid, within physiologic limits. THIS IS AN ELECTRONICALLY VERIFIED FINAL REPORT 11/12/2017 3:39 PM - Electronically signed by Richi Suresh M.D. MD: D: ??11/12/2017 3:39 PM T: ??11/12/2017 3:39 PM Report ID: [id number] Reading Location: ??[id number] [EOD] Narrative 11/12/2017 3:42 PM CDT EXAM DESCRIPTION: ??US Transvaginal; US Duplex Scan Complete REASON FOR STUDY: ??27-year-old female with vaginal bleeding and pelvic cramping/pain for 2 days. ??History of PCOS with regular cycles. ??Patient on infertility medication, Clomid and metformin. ??Provided paperwork notes that patient is . ??Beta hCG pending (not available at time of imaging). ?? Patient reports LMP 2 weeks ago. TECHNIQUE: ??Ultrasound of the pelvic contents was performed with transvaginal transducer. ??Grayscale and color doppler techniques were utilized. COMPARISON: ??CT abdomen/pelvis 05/24/2016 FINDINGS: UTERUS: The uterus is anteverted. The uterus is homogenous in echotexture and measures 8.6 x 5.6 x 3.6 cm. ENDOMETRIUM: The endometrium measures 0.7 cm in thickness. ??No intrauterine is visualized. RIGHT OVARY/ADNEXA: The right ovary measures 3.7 x 1.7 x 2.7 cm. There is documentation of color Doppler flow in the right ovary. The right ovary appears unremarkable. ??No suspicious adnexal mass is identified. LEFT OVARY/ADNEXA: The left ovary measures 3.5 x 1.8 x 1.9 cm. There is documentation of color Doppler flow in the left ovary. ??The left ovary appears unremarkable. ??No suspicious adnexal mass is identified. PELVIC FLUID: Small amount of free fluid within the pelvis, within physiologic limits. OTHER: No other significant findings. Procedure Note Provider, MD Kenneth - 06/22/2020 EXAM DESCRIPTION: US Transvaginal; US Duplex Scan Complete REASON FOR STUDY: 27-year-old female with vaginal bleeding and pelvic cramping/pain for 2 days. History of PCOS with regular cycles. Patienton infertility medication, Clomid and metformin. Provided paperwork notesthat patient is . Beta hCG pending (not available at time of imaging). Patient reports LMP 2 weeks ago. TECHNIQUE: Ultrasound of the pelvic contents was performed withtransvaginal transducer. Grayscale and color doppler techniques were utilized. COMPARISON: CT abdomen/pelvis 05/24/2016 FINDINGS: UTERUS: The uterus is anteverted. The uterus is homogenous in echotextureand measures 8.6 x 5.6 x 3.6 cm. ENDOMETRIUM: The endometrium measures 0.7 cm in thickness. Nointrauterine is visualized. RIGHT OVARY/ADNEXA: The right ovary measures 3.7 x 1.7 x 2.7 cm. There is documentation of color Doppler flow in the right ovary. The right ovary appears unremarkable. No suspicious adnexal mass is identified. LEFT OVARY/ADNEXA: The left ovary measures 3.5 x 1.8 x 1.9 cm. There is documentation of color Doppler flow in the left ovary. The left ovaryappears unremarkable. No suspicious adnexal mass is identified. PELVIC FLUID: Small amount of free fluid within the pelvis, withinphysiologic limits. OTHER: No other significant findings. IMPRESSION: 1.No evidence of intrauterine or ectopic . Recommend correlation with beta HCG. 2.Unremarkable appearing nongravid uterus and bilateral ovaries. 3.Small amount of pelvic free fluid, within physiologic limits. THIS IS AN ELECTRONICALLY VERIFIED FINAL REPORT 11/12/2017 3:39 PM - Electronically signed by Richi Suresh M.D., MD: Report ID: [id number] Reading Location: [id number] [EOD] us Shamar Seymour MD [facility] US PROCEDURES Final Result documented in this encounter Visit Diagnoses Diagnosis Complete or unspecified spontaneous without complication Nicotine dependence, uncomplicated Allergy status to other antibiotic agents status Allergy status to analgesic agent documented in this encounter
--- OUTSIDE RECORDS SUMMARY | 2024-02-17 14:00 | XMS_ITS | Clinical Summary ---
Author Organization [facility] Administrative Offices Address [address] [place] [address] Care Team Providers Care Train Announcer Name Role Phone Wilner Gutierrez DO Primary Care Provider Allergies Active Allergy Reactions Criticality Noted Date Comments Latex Hives High 11/28/2017 Hives Morphine Hives,Itching High 02/07/2017 Itching Tramadol Itching Low 07/19/2020 Vancomycin Hives High 04/16/2020 Itching Medications Medication Sig Dispensed Refills Start Date End Date Status metFORMIN (GLUCOPHAGE) 500 mg tablet Take 500 mg by mouth daily with breakfast. Active HYDROcodone-acetamino phen (NORCO) 5-325 mg tabletIndications:Dis charge from left nipple Take 1 Tablet by mouth every 6 hours as needed for Pain. Max Daily Amount: 4 Tablets 5 Tablet 05/30/2021 Active Active Problems Problem Noted Date Diagnosed Date Infection of left breast 06/22/2021 Nipple discharge, bloody 06/13/2021 Family History Medical History Relation Name Comments Breast Cancer Neg Hx Social History Tobacco Use Types Packs/Day Years Used Date Smoking Tobacco: Never Smokeless Tobacco: Never Alcohol Use Standard Drinks/Week Comments Never 0 (1 standard drink = 0.6 oz pur e alcohol) Sex and Gender Information Value Date Recorded Sex Assigned at Not on file Gender Identity Not on file Sexual Orientation Not on file Last Filed Vital Signs Vital Sign Reading Time Taken Comments Blood Pressure 122/80 06/08/2021 10:54 AM CDT Pulse 73 05/30/2021 3:45 PM CDT Temperature 36.3 ??C (97.4 ??F) 05/30/2021 3:13 PM CD T Respiratory Rate 17 05/30/2021 3:45 PM CDT Oxygen Saturation 93% 05/30/2021 3:45 PM CDT Inhaled Oxygen Concentration - - Weight 82.6 kg (182 lb) 06/08/2021 10:54 AM CDT Height 165.1 cm (5' 5 ) 06/08/2021 10:54 AM CDT Body Mass Index 30.29 06/08/2021 10:54 AM CDT Plan of Treatment Health Maintenance Due Date Last Done Comments DTAP/TDAP/TD VACCINES (1 - Tdap) 02/26/2011 HEPATITIS B VACCINES (1 of 3 - 19+ 3-dose series) 02/26/2011 CERVICAL CANCER SCREENING 02/26/2022 INFLUENZA VACCINE (#1) 2023 COVID-19 Vaccine (2023-2 5 season) 2023 03/01/2020, 02/09/2020 HPV VACCINES Aged Out No longer eligi ble based on patient's age to complete this topic PNEUMOCOCCAL VACCINE 0-64 YEARS Aged Out No longer eligible b ased on patient's age to complete this topic Medical Devices Implanted Type Area Engine Assembler Device Identifier Shelf Expiration Date Model / Serial / Lot Hemostatic Surgicel 2x3in 1952 - [id number] Implanted:Qty: 1 on 05/30/2021 [place] Davida Reed [place] [facility] [place]: Breast [employer] 10/06/20231952 / / [id number] Care Teams Train Announcer Relationship Specialty Start Date End Date Wilner Gutierrez DO [address] [facility] [address] [facility] [address] [place] [address] PCP - General Surgery 05/09/21
--- OUTSIDE RECORDS SUMMARY | 2024-02-17 14:00 | XMS_ITS | Encounter Summary ---
Author Organization [facility] Address [address] [place] [address] Care Team Providers Care Light Rail Vehicle Operator Name Role Phone Brenda Wilner Adam CARTAGENA Primary Care Provider Reason for Visit * Reason Comments Post-op Visit Encounter Details Date Type Department Care Team (Late st Contact Info) Description 06/08/2021 11:00 AM CDT Office Visit [facility] BREAST SURGERY - [place] [address] [place] [address] [place] [address] [place] [address] Nipple discharge, bloody (Primary Dx) Social History Tobacco Use Types [...] Exposure Response Date Recorded In the last 10 days, have yo u been in contact with someone who was confirmed or suspected to have Coronavirus/COVID-19? No / Unsure 06/08/2021 10:49 AM CDT documented as of this encounter Last Filed Vital Signs Vital Sign Reading Time Taken Comments Blood Pressure 122/80 06/08/2021 10:54 AM CDT Pulse - - Temperature - - Respiratory Rate - - Oxygen Saturation - - Inhaled Oxygen Concentration - - Weight 82.6 kg (182 lb) 06/08/2021 10:54 AM CDT Height 165.1 cm (5' 5 ) 06/08/2021 10:54 AM CDT Body Mass Index 30.29 06/08/2021 10:54 AM CDT documented in this encounter Progress Notes * Davida Reed MD - 06/08/2021 10:55 AM CDT Patient comes in today for f/u on left subareolar excision done on 05/30/21. Was seen in [facility] ED for right breast pain and bloody nipple discharge. Notes white discharge in the morning with occasional blood Vitals: 06/08/21 1054 BP: 122/80 Left incision healing well. No pain or erythema on the left. Results for orders placed or performed during the hospital encounter of 05/30/21 PATHOLOGY Result Value Ref Range CASE REPORT Surgical Pathology Report Case: [id number] Authorizing Provider: Davida Reed MD Collected: 05/30/2021 02:46 PM Ordering Location: [facility] OUTPATIENT SURGERY Received: 05/30/2021 03:00 PM [facility] Pathologist: Gloyr Palumbo MD Specimen: Nipple, left, left subareolar tissue ss/ll FINAL DIAGNOSIS Breast, left subareolar, excisional biopsy: - Mild fibrocystic change. - Microcalcifications. DIAGNOSIS COMMENT Patient's history of clear or bloody left nipple discharge is noted. GROSS DESCRIPTION The specimen is received in a single container fresh from the OR, labeled Roxana Briseno and is additionally labeled left subareolar tissue, SS/LL. It consists of a single oriented piece of fibrofatty tissue with a long suture indicating lateral and a short stitch the superior margin. The specimen weighs 3 g and measures 2 cm lateral to medial, 2 cm superior to inferior and 0.7 cm anterior to posterior. Inked as follows: anterior: Blue, posterior: Black, superior: Yellow and inferior: Green. The tissue is serially sectioned from medial to lateral into 5 levels. The cut section reveals fibrotic tissue. No mass is grossly identified. The specimen is entirely submitted in cassettes as follows: A1: Level 1 (medial margin), perpendicular sections, A2, level 2, A3, level 3, A4: Level 4 andA5 level 5 (lateral margin), perpendicular sections. MM MICROSCOPIC DESCRIPTION The slides are labeled [id number] and Roxana Briseno. The excision of left subareolar breast tissue shows benign parenchyma with mild fibrocystic change. A minute possible focus of collagenous spherulosis is also identified. There is no ductal epithelial hyperplasia or cytologic atypia. No papillary lesion, fibroepithelial lesion, cyst or duct ectasia is seen that might explain or correlate with the clinical history. A few luminal microcalcifications are noted. OPERATIVE PROCEDURE 1: BREAST BIOPSY CLINICAL INFORMATION Discharge from left nipple [N64.52] COMMENT Special stain, immunohistochemical, and/or in situ hybridization results are interpreted with controls that demonstrate appropriate staining reactions. Note on use of immunohistochemistry reagents and in situ hybridization probes: These tests were developed and their performance characteristics determined by [facility], Department of Laboratory Medicine. It has not been cleared or approved by the U.S. Food and Drug Administration. The FDA has determined that such clearance or approval is not necessary. The test is used for clinical purposes. It should not be regarded as investigational or for research. This laboratory is certified to perform high complexity testing. Frozen section/operating room consultation, gross examination and dissection, and case sign out mayhave been performed in part or completely in the following laboratories: [facility], CLIA #[id number] [address] [place] [address] [facility], [place] #[id number] [address] [place] [address] [facility], [place] #[id number] [address] [place] [address] This report was created with the [employer] voice-activated dictation system. Inherent to this system is the possibility of syntax, grammar, punctuation and other errors that could impact the interpretation of the report. If there are interpretative questions about aspects of this report, please contact the performing pathologist. -Pathology reviewed. MRI right breast negative 12/2020. Likely scar tissue from previous piercing and physiologic nipple discharge. Follow-up in 3 months. Supportive bra. Vitamin E and Evening Byram Oil. Scar care with daily moisturizer. documented in this encounter Plan of Treatment Not on file documented as of this encounter Visit Diagnoses Diagnosis Nipple discharge, bloody- Primary Other sign and symptom in breast documented in this encounter Care Teams Light Rail Vehicle Operator Relationship Specialty Start Date End Date Wilner Gutierrez DO [address] [facility] [address] [facility] [address] [place] [id number] PCP - General Surgery 05/09/21 documented as of this encounter
--- OUTSIDE RECORDS SUMMARY | 2024-02-17 14:00 | XMS_ITS | Encounter Summary ---
Author Organization [facility] Address [address] [facility] Attn: Epic Prelude ADT [place] [address] Care Team Providers Care Projection Engineer Name Role Phone Wilner Gutierrez DO Primary Care Provider Encounter Details Date Type Department Care Team (Latest Contact Info) Description 06/08/2021 Travel Social History Tobacco Use Types Packs/Day [...] on filedocumented in this encounter Care Teams Projection Engineer Relationship Specialty Start Date End Date Wilner Gutierrez DO [address] [facility] [address] [place] [phone] PCP - General Surgery 05/09/21 documented as of this encounter
--- OUTSIDE RECORDS SUMMARY | 2024-02-17 14:00 | XMS_ITS | Encounter Summary ---
Author Organization [facility] Address [address] [place] [address] Care Team Providers Care Mult Au Matic Operator Name Role Phone Wilner Gutierrez DO Primary Care Provider Reason for Visit * Reason Onset Date Comments Results 06/02/2021 Encounter Details Date Type Department Care Team (Late st Contact Info) Description 06/02/2021 Telephone [facility] Breast Surgery [facility] - [address] [facility] [address] [place] [address] [place] [address] [facility] [address] [place] [address] Results Social History Tobacco Use Types Packs/Day Years [...] suspected to have Coronavirus/COVID-19? No / Unsure 05/30/2021 12:03 PM CDT documented as of this encounter Miscellaneous Notes * Telephone Encounter - Davida Reed MD - 06/02/2021 1:15 PM CDT Spoke with patient and results given from surgery. Results for orders placed or performed during the hospital encounter of 05/30/21 PATHOLOGY Result Value Ref Range CASE REPORT Surgical Pathology Report Case: [id number] Authorizing Provider: Davida Reed MD Collected: 05/30/2021 02:46 PM Ordering Location: [facility] OUTPATIENT SURGERY Received: 05/30/2021 03:00 PM [facility] Pathologist: Glory Palumbo MD Specimen: Nipple, left, left subareolar [...] MM MICROSCOPIC DESCRIPTION The slides are labeled [id number] and Roxana Briseno. The excision of left subareolar breast tissue shows benign parenchyma with mild fibrocystic change.A minute possible focus of collagenous spherulosis is also identified. There is no ductal epithelial hyperplasia or cytologic atypia. No papillary lesion, fibroepithelial lesion, cyst or duct ectasiais seen that might explain or correlate with [...] developed and their performance characteristics determined by [facility], Department of Laboratory Medicine. It has not [...] part or completely in the following laboratories: [facility], CLIA #[id number] [address] [place] [address] [facility], [place] #[id number] [address] [place] [address] [facility], CLIA #[id number] [address] [place] [address] This report was created with the [employer] voice-activated dictation system. Inherent to this system is the possibility of syntax, grammar, punctuation and other errors that could impact the interpretation of the report. If there are interpretative questions about aspects of this report, please contact the performing pathologist. -Patient verbalized understanding. Notes some discomfort at incision site. She will follow-up in clinic. documented in this encounter Plan of Treatment Not on file documented as of this encounter Visit Diagnoses Not on filedocumented in this encounter Care Teams Mult Au Matic Operator Relationship Specialty Start Date End Date Wilner Gutierrez DO [address] [facility] [address] [facility] [address] [place] [address] PCP - General Surgery 05/09/21 documented as of this encounter
--- OUTSIDE RECORDS SUMMARY | 2024-02-17 14:01 | XMS_ITS | Encounter Summary ---
Author Organization [facility] Address [address] Attn: Epic Prelude ADT [place] [address] Care Team Providers Care Lisw Name Role Phone Wilner Gutierrez DO Primary Care Provider Encounter Details Date Type Department Care Team (Latest Contact Info) Description 05/24/2021 Travel Social History Tobacco Use Types Packs/Day [...] suspected to have Coronavirus/COVID-19? No / Unsure 05/24/2021 2:11 PM CDT documented as of this encounter Plan of Treatment Not on file documented as of this encounter Visit Diagnoses Not on filedocumented in this encounter Care Teams Lisw Relationship Specialty Start Date End Date Wilner Gutierrez DO [address] [facility] [address] [place] [address] PCP - General Surgery 05/09/21 documented as of this encounter
--- OUTSIDE RECORDS SUMMARY | 2024-02-17 14:01 | XMS_ITS | Encounter Summary ---
Author Organization [facility] Address [address] [place] [address] Care Team Providers Care Accounts Receivable Executive Name Role Phone Unavailable Primary Care Provider Unavailabl e Encounter Details Date Type Department Care Team (Latest Contact Info) Description 02/11/2021 7:40 AM OFFICE MACHINE PUNCH OPERATOR - 02/11/2021 11:59 PM OFFICE MACHINE PUNCH OPERATOR Hospital Encounter [facility] [place] [address] [place] [address] [facility], External Provider [address] [place] [address] Discharge Disposition: Home or Self Care Social [...] Name Priority Date/Time Associated Diagnosis Comments MAMMO PRIOR STUDY Routine 02/11/2021 7:4 0 AM OFFICE MACHINE PUNCH OPERATOR Follow-up exam documented in this encounter Results * MAMMO PRIOR STUDY (02/11/2021 7:40 AM OFFICE MACHINE PUNCH OPERATOR) Narrative 05/16/2021 7:37 AM CDT This exam was auto finalized to allow images to be scanned to PACS. External Provider [facility] DIAGNOSTIC IMAGI NG ORDERABLES documented in this encounter Visit Diagnoses Diagnosis Follow-up exam Unspecified follow-up examination documented in this encounter
--- OUTSIDE RECORDS SUMMARY | 2024-02-17 14:01 | XMS_ITS | Encounter Summary ---
Author Organization [facility] Address [address] [place] [address] Care Team Providers Care Environmental Analyst Name Role Phone Unavailable Primary Care Provider Unavailabl e Encounter Details Date Type Department Care Team (Latest Contact Info) Description 11/09/2020 7:35 AM CDT - 11/09/2020 11:59 PM CDT Hospital Encounter [facility] [address] [place] [address] [facility], External Provider [address] [place] [address] Discharge Disposition: Home or Self Care Social [...] Associated Diagnosis Comments MAMMO PRIOR STUDY Routine 11/09/2020 7:3 5 AM CDT Follow-up exam documented in this encounter Results * MAMMO PRIOR STUDY (11/09/2020 7:35 AM CDT) Narrative 05/16/2021 7:32 AM CDT This exam was auto finalized to allow images to be scanned to PACS. External Provider [facility] DIAGNOSTIC IMAGI NG ORDERABLES documented in this encounter Visit Diagnoses Diagnosis Follow-up exam Unspecified follow-up examination documented in this encounter
--- OUTSIDE RECORDS SUMMARY | 2024-02-17 14:01 | XMS_ITS | Encounter Summary ---
Author Organization [facility] Address [address] [place] [address] Care Team Providers Care Rabbit Dresser Name Role Phone Brenda Wilner Adam CARTAGENA Primary Care Provider Reason for Visit * Auth/Cert Specialty Diagnoses / Procedures Referred By Kimberley barrios Referred To Contact Perioperative Diagnoses Discharge from left nipple Procedures WI EXCISE BREAST CYST WI NIPPLE EXPLORATION LEFT BREAST NIPPLE EXPLORATION AND BIOPSY [facility] [place] [address] [facility] [address] [place] [address] Referral ID Status Reason Start Date Expiration Date Visits Re quested Visits Authorized [id number] 1 1 Encounter Details Date Type Department Care Team (Latest Contact Info) Description 05/30/2021 12:04 PM CDT - 05/30/2021 4:04 PM CDT Hospital Encounter [facility] [place] [address] [facility] [address] [place] [address] [place] [address] [place] [address] Discharge from left nipple Discharge Disposition: Home or Self Care Social [...] PM CDT documented as of this encounter Last Filed Vital Signs Vital Sign Reading Time Taken Comments Blood Pressure 111/75 05/30/2021 3:45 PM CDT Pulse 73 05/30/2021 3:45 PM CDT Temperature 36.3 ??C (97.4 ??F) 05/30/2021 3:13 PM CD T Respiratory Rate 17 05/30/2021 3:45 PM CDT Oxygen Saturation 93% 05/30/2021 3:45 PM CDT Inhaled Oxygen Concentration - - Weight 80.7 kg (178 lb) 05/30/2021 12:32 PM CDT Height 165.1 cm (5' 5 ) 05/30/2021 12:32 PM CDT Body Mass Index 29.62 05/30/2021 12:32 PM CDT documented in this encounter Discharge Instructions * Discharge Instructions* Davida Reed MD - 05/30/2021 1:35 PM CDT POSTOPERATIVE INSTRUCTIONS AFTER BREAST SURGERY It is helpful to use an ice bag intermittently on the area. You may be more comfortable wearing a sports bra or other soft supportive bra. No strenuous activity for 4-5 days. No heavy lifting over 20 lbs for 2 weeks. Walking is encouraged. May remove outer bandage and shower after 24 hours. Pat incision dry. Allow white tapes or blue appearing glue to fall or flake off on their own. Do not pull off tapes or glue. No submersion of wounds for 2 weeks. No driving on pain medication. Your urine may be blue or green due to a special dye used during surgery. This is normal and will resolve on its own. You may notice some yellow or blue bruising around you breast. This is normal and should resolve onits own. It is also normal to have some mild redness, lumpiness/firmness or possible numbness around you incisions or on the inside of your arm. Follow-up in clinic in 1-2 weeks after surgery for evaluation and to discuss pathology results. Call if you have any foul drainage or pus from incisions, fever of 101.4 or higher, or urgent breast questions at [phone]. Report to the Emergency Room if any chest pain, shortness of breath, or trouble breathing. documented in this encounter Medications at Time of Discharge Medication Sig Dispensed Refills Start Date End Date metFORMIN (GLUCOPHAGE) 500 mg tablet Take 500 mg by mouth daily with breakfast. HYDROcodone-acetaminophen (NORCO) 5-325 mg tabletIndications:Dischar ge from left nipple Take 1 Tablet by mouth every 6 hours as needed for Pain. Max Daily Amount: 4 Tablets 5 Tablet 05/30/2021 documented as of this encounter H&P Notes * Davida Reed MD - 05/30/2021 2:19 PM CDT H and p reviewed from office visit and no additions or changes. Will proceed to OR for left breast nipple exploration and subareolar biopsy. documented in this encounter OR Notes * Operative Report - Davida Reed MD - 05/30/2021 3:08 PM CDT Breast Nipple Exploration and Subareolar Biopsy Procedure Note Indications: This patient presents with history of left bloody nipple discharge. Pre-operative Diagnosis: left nipple discharge Post-operative Diagnosis: left nipple discharge Surgeon: Davida Reed MD Anesthesia: Monitored Local Anesthesia with Sedation ASA Class: 1 Procedure Details The patient was seen in the Holding Room. The risks, benefits, complications, treatment options, and expected outcomes were discussed with the patient. The possibilities of reaction to medication, pulmonary aspiration, bleeding, infection, the need for additional procedures, failure to diagnose a condition, and creating a complication requiring transfusion or operation were discussed with the patient. The patient concurred with the proposed plan, giving informed consent. The site of surgery properly noted/marked. The patient was taken to Operating Room # 2, identified as Roxana Briseno and the procedure verified as Breast Nipple Exploration and Subareolar Biopsy. A Time Out was held and the above information confirmed. The patient was placed supine. After establishing intravenous sedation, the left breast was preppedand draped in standard fashion. Nipple discharge from a single duct unable to be expressed. Local anesthetic was delivered along the 3 o'clock of the areolar complex and a periareolar incision was created. The nipple- areolar complex was mobilized anteriorly. The ductal structure was mobilized from the surrounding subareolar tissue, excised, and submitted to pathology with orientation short stitchsuperior and long stitch lateral. Wound irrigated and hemostasis was achieved with cautery and surgicel. The ductal orifices on the anterior surface were closed with 5-0 nylon sutures. The nipple wasthen everted with 5-0 nylon sutures. The cavity measured 3 x 2 cm in size. The cavity was then reconstructed utilizing level one oncoplastic technique. The previously mobilized superior and inferior flaps of breast tissue were re-approximated to the midline in layers deep to anterior with 3-0 polysorb sutures. This required an additional 5 minutes of operative time. Closure of the skin was performed with a 3-0 polysorb deep dermal and 4-0 biosyn subcuticular in layers. Steri-Strips were applied. At the end of the operation, all sponge, instrument and needle counts were correct x2. Findings: Left breast subareolar biopsy Estimated Blood Loss: less than 50 ml Drains: None Specimens: left breast subareolar excision Complications: None; patient tolerated the procedure well. Attending Attestation: I performed the procedure. Patient transferred to PACU in stable condition. documented in this encounter Plan of Treatment Not on file documented as of this encounter Procedures Procedure Name Priority Date/Time Associated Diagnosis Comments PATHOLOGY Pathology 05/30/2021 2:46 PM CDT Discharge from left nipple WI EXC CYST/ABERRANT BREAST TISSUE OPEN 1/> LESION 05/30/2021 1:42 PM CDT Discharge from left nipple POC , URINE Routine 05/30/2021 12:25 PM CDT documented in this encounter Results * PATHOLOGY (05/30/2021 2:46 PM CDT) CASE REPORT Surgical Pathology Report ? Case: [id number] ? Authorizing Provider: ??Davida Reed MD ? Collected: ? 05/30/2021 02:46 PM ? Ordering Location: ? [facility] ?? Received: ?05/30/2021 03:00 PM ? [facility] ? Pathologist: ? Glory Palumbo MD ? Specimen: ?Nipple, left, left subareolar tissue ss/ll ? 2 10:27 AM [facility] FINAL DIAGNOSIS Breast, left subareolar, excisional biopsy: - Mild fibrocystic change. - Microcalcifications. 2 10:27 AM [facility] NOSIS COMMENT Patient's history of clear or bloody left nipple discharge is noted. 2 10:27 AM [facility] GROSS DESCRIPTION The specimen is received in [...] 2, A3, level 3, A4: Level 4 and A5 level 5 (lateral margin), perpendicular sections. MM 2 10:27 AM [facility] MICROSCOPIC DESCRIPTION The slides are labeled [id number] and Roxana Briseno. The excision of left subareolar breast tissue shows benign parenchyma with mild fibrocystic change. A minute possible focus of collagenous spherulosis is also identified. There is no ductal epithelial hyperplasia or cytologic atypia. No papillary lesion, fibroepithelial lesion, cyst or duct ectasia is seen that might explain or correlate with the clinical history. A few luminal microcalcifications are noted. 2 10:27 AM [facility] OPERATIVE PROCEDURE 1: BREAST BIOPSY 2 10:27 AM [facility] CLINICAL INFORMATION Discharge from left nipple [N64.52] 2 10:27 AM [facility] COMMENT Special stain, immunohistochemical, and/or in situ hybridization results are interpreted with controls that demonstrate appropriate staining reactions. Note on use of immunohistochemistry reagents and in situ hybridization probes: These tests were developed and their performance characteristics determined by [facility], Department of Laboratory Medicine. It has not [...] examination and dissection, and case sign out may have been performed in part or completely in the following laboratories: [facility], CLIA #[id number] [address] [place] [address] [facility], CLIA #[id number] [address] [place] [address] [facility], CLIA #[id number] [address] [place] [address] This report was created with the [employer] voice-activated dictation system. Inherent to this system is the possibility of syntax, grammar, punctuation and other errors that could impact the interpretation of the report. If there are interpretative questions about aspects of this report, please contact the performing pathologist. 10:27 AM CDT [facility] Tissue ENTIRE NIPPLE / Unknown Collection / Unknown 05/30/2021 2:46 PM CDT 05/30/2021 3:00 PM CDT Davida Reed MD PATHOLOGY/CYTOLOGY O RDERABLES [facility] CLIA# [id number] [address] [place] [address] * POC , URINE (05/30/2021 12:25 PM CDT) HCG QUAL URINE Negative Negative 05/30/2021 12:25 PM CDT [facility] RADIOLOGY MULTI SITE/OPS [place] Urine 05/30/2021 12:2 5 PM CDT 05/30/2021 1:16 PM CDT Davida Reed MD POINT OF CARE TESTIN G [facility] RADIOLOGY MULTI SITE/OPS [place] CLIA # [id number] [address] [place] [address] documented in this encounter Visit Diagnoses Diagnosis Discharge from left nipple documented in this encounter Administered Medications Inactive Administered Medications - up to 3 most recent administrations Medication Order MAR Action Action Date Dose Rate Site bupivacaine PF (SENSORCAINE MPF) 2.5 mg/mL (0.25%) 25 mg, lidocaine PF 1% (XYLOCAINE MPF) 10 mL INJECTION See Admin Instructions, INTRA-PROCEDURE PRN, Starting on Sun05/30/21 at 1342, Until Sun05/30/21 at 1804, Other (See Comment), local, Routine, Pre-op Given 05/30/2021 2:57 PM CDT 20 mL Operative Site HYDROcodone-acetamin ophen (NORCO) 5-325 mg per tablet 1 Tablet 1 Tablet, Oral, EVERY 4 HOURS PRN, Starting on Sun05/30/21 at 1543, Until Sun05/30/21 at 1804, Pain, Moderate, Routine lactated ringers infusion IV, at 150 mL/hr, PRE-PROCEDURE CONTINUOUS, Starting on Sun05/30/21 at 1230, Until Sun05/30/21 at 1804, Routine, Pre-op Continue from Pre-Op 05/30/2021 2:26 PM CDT 150 mL/hr New Bag 05/30/2021 12:41 PM CDT 150 mL/hr lidocaine PF 2% (XYLOCAINE MPF) injection 0.3 mL 0.3 mL, Infiltration, PRE-PROCEDURE ONCE, Starting on Sun05/30/21 at 1219, Until Sun05/30/21 at 1804, Routine, Pre-op documented in this encounter Active and Recently Administered Medications Times are shown in CDT. Scheduled Medication Order 05/28/2021 05/29/2021 05/30/2021 ceFAZolin in sterile water (ANCEF) 2 gram/20 mL IV Syringe (PREMIX) 2,000 mg (COMPLETED) 2,000 mg, IV, PRE-PROCEDURE ONCE, 1 dose, Starting on Sun05/30/21 at 1219, Until Sun05/30/21 at 1436, Routine, Pre-op, Antibiotic Indication: Surgical prophylaxis 1431 (Given - Provid er: CLAUDIA Chicas)1436 (Stopped - Provider: CLAUDIA Chicas) lidocaine PF 2% (XYLOCAINE MPF) injection 0.3 mL 0.3 mL, Infiltration, PRE-PROCEDURE ONCE, Starting on Sun05/30/21 at 1219, Until Sun05/30/21 at 1804, Routine, Pre-op Continuous Medication Order 05/28/2021 05/29/2021 05/30/2021 lactated ringers infusion IV, at 150 mL/hr, PRE-PROCEDURE CONTINUOUS, Starting on Sun05/30/21 at 1230, Until Sun05/30/21 at 1804, Routine, Pre-op 1241 (New Bag - Prov ider: Daksha Ennis, RN)1426 (Continue from Pre-Op - Provider: CLAUDIA Chicas)1548 (Stopped - Provider: Mylene Martinez, COCO) PRN Medication Order 05/28/2021 05/29/2021 05/30/2021 bupivacaine PF (SENSORCAINE MPF) 2.5 mg/mL (0.25%) 25 mg, lidocaine PF 1% (XYLOCAINE MPF) 10 mL INJECTION See Admin Instructions, INTRA-PROCEDURE PRN, Starting on Sun05/30/21 at 1342, Until Sun05/30/21 at 1804, Other (See Comment), local, Routine, Pre-op 1457 (Given - Provid er: Davida Reed MD) HYDROcodone-acetaminophen (NORCO) 5-325 mg per tablet 1 Tablet 1 Tablet, Oral, EVERY 4 HOURS PRN, Starting on Sun05/30/21 at 1543, Until Sun05/30/21 at 1804, Pain, Moderate, Routine documented in this encounter Care Teams Rabbit Dresser Relationship Specialty Start Date End Date Wilner Gutierrez DO [address] [facility] [address] [facility] [address] [place] [address] PCP - General Surgery 05/09/21 documented as of this encounter
--- OUTSIDE RECORDS SUMMARY | 2024-02-17 14:01 | XMS_ITS | Encounter Summary ---
Author Organization [facility] Address [address] [place] [address] Care Team Providers Care Infantry Weapons Crewmember Name Role Phone Unavailable Primary Care Provider Unavailabl e Encounter Details Date Type Department Care Team (Latest Contact Info) Description 09/17/2020 7:50 AM CDT - 09/17/2020 11:59 PM CDT Hospital Encounter [facility] [address] [place] [address] [facility], External Provider [address] [place] [address] Discharge Disposition: Home or Self Care Social [...] Associated Diagnosis Comments MAMMO PRIOR STUDY Routine 09/17/2020 7:5 0 AM CDT Follow-up exam documented in this encounter Results * MAMMO PRIOR STUDY (09/17/2020 7:50 AM CDT) Narrative 05/16/2021 7:42 AM CDT This exam was auto finalized to allow images to be scanned to PACS. External Provider [facility] DIAGNOSTIC IMAGI NG ORDERABLES documented in this encounter Visit Diagnoses Diagnosis Follow-up exam Unspecified follow-up examination documented in this encounter
--- OUTSIDE RECORDS SUMMARY | 2024-02-17 14:01 | XMS_ITS | Encounter Summary ---
Author Organization [facility] Address [address] [place] [address] Care Team Providers Care Mechanical Spreader Operator Name Role Phone Wilner Gutierrez DO Primary Care Provider Encounter Details Date Type Department Care Team (Late st Contact Info) Description 05/09/2021 Prep for Surgery [facility] BREAST SURGERY - [place] [address] [place] [address] [place] [address] [place] [address] Discharge from left nipple (Primary Dx) Social History Tobacco Use Types [...] have Coronavirus / COVID-19? No / Unsure 05/09/2021 1:06 PM CDT documented as of this encounter Plan of Treatment Not on file documented as of this encounter Visit Diagnoses Diagnosis Discharge from left nipple- Primary documented in this encounter Care Teams Mechanical Spreader Operator Relationship Specialty Start Date End Date Wilner Gutierrez DO [address] [place] [address] PCP - General Surgery 05/09/21 documented as of this encounter
--- OUTSIDE RECORDS SUMMARY | 2024-02-17 14:01 | XMS_ITS | Encounter Summary ---
Author Organization [facility] Address [address] [place] [address] Care Team Providers Care Science Faculty Member Name Role Phone Wilner Gutierrez DO Primary Care Provider Encounter Details Date Type Department Care Team (Latest Contact Info) Description 05/09/2021 2:29 PM CDT - 05/09/2021 11:59 PM CDT Hospital Encounter [facility] Cardiology Services [address] [place] [address] [place] [address] [place] [address] Discharge Disposition: Home or Self Care Social [...] PM CDT documented as of this encounter Medications [...] Tablet 05/30/2021 documented as of this encounter Plan of Treatment Not on file documented as of this encounter Procedures Procedure Name Priority Date/Time Associated Diagnosis Comments EKG 12-LEAD Routine 05/09/2021 3:13 PM CDT documented in this encounter Results * EKG 12-LEAD (05/09/2021 3:13 PM CDT) 05/09/2021 3:13 PM CDT Narrative INTERFACE SYSTEM - 05/10/2021 11:22 AM CDT ? Stationary ECG Study ? [facility] ? Test Date: ?05/09/2021 3:13 PM Pat Name: ? MUKUND LIVINGSTON ? Department: ?? 2 ?Room: ? Gender: ? F ?Trim Machine Operator: ?? mendy KEEN: ?1990 ? Requested By: DAVIDA Elliott Order Number: [id number] ?Reading : ?? Hector Aldridge ? Measurements Intervals ?Dillard ? Rate: ? 71 ? P: ?8 IA: ? 140 ?QRS: ?28 QRSD: ? 85 ? T: ?11 QT: ? 379 ? QTc: ?412 ? Interpretive Statements ? SINUS RHYTHM POSSIBLE RIGHT VENTRICULAR CONDUCTION DELAY [RSR (QR) IN V1/V2] Electronically Signed On 05-10-2021 11:22:52 CDT by Hector Aldridge Procedure Note Hector Aldridge MD - 05/10/2021 Stationary ECG Study [facility] Test Date: 05/09/2021 3:13 PM Pat Name: MUKUND LIVINGSTON Department: 2 Room: Gender: F Trim Machine Operator: mendy : 1990 Requested By: DAVIDA Elliott Order Number: [id number] Reading MD: Hector Aldridge Measurements Intervals Dillard Rate: 71 P: 8 IA: 140 QRS: 28 QRSD: 85 T: 11 QT: 379 QTc: 412 Interpretive Statements SINUS RHYTHM POSSIBLE RIGHT VENTRICULAR CONDUCTION DELAY [RSR (QR) IN V1/V2] Electronically Signed On 05-10-2021 11:22:52 CDT by Hector Aldridge Davida Reed MD ECG ORDERABLES INTERFACE SYSTEM Refer to clinic/hospital department documented in this encounter Visit Diagnoses Not on filedocumented in this encounter Care Teams Science Faculty Member Relationship Specialty Start Date End Date Wilner Gutierrez DO [address] [facility] [address] [place] [address] PCP - General Surgery 05/09/21 documented as of this encounter
--- OUTSIDE RECORDS SUMMARY | 2024-02-17 14:01 | XMS_ITS | Encounter Summary ---
Author Organization [facility] Address [address] [place] [address] Care Team Providers Care Whiteprinting Machine Operator Name Role Phone Wilner Gutierrez DO Primary Care Provider Encounter Details Date Type Department Care Team (Late st Contact Info) Description 05/09/2021 Chart Note [facility] BREAST SURGERY - [place] [facility] [address] [place] [address] [place] [address] [place] [address] Social History Tobacco Use Types Packs/Day Years [...] PM CDT documented as of this encounter Progress Notes * Neli Duran - 05/09/2021 1:24 PM CDT [facility] and 3 other disc and put in bin for radiology to cotton picker operator. documented in this encounter Plan of Treatment Not on file documented as of this encounter Visit Diagnoses Not on filedocumented in this encounter Care Teams Whiteprinting Machine Operator Relationship Specialty Start Date End Date Wilner Gutierrez DO [address] [facility] [address] [facility] [address] [place] [address] PCP - General Surgery 05/09/21 documented as of this encounter
--- OUTSIDE RECORDS SUMMARY | 2024-02-17 14:01 | XMS_ITS | Encounter Summary ---
Author Organization [facility] Address [address] [place] [address] Care Team Providers Care Script Artist Name Role Phone Unavailable Primary Care Provider Unavailabl e Encounter Details Date Type Department Care Team (Latest Contact Info) Description 07/30/2020 7:50 AM CDT - 07/30/2020 11:59 PM CDT Hospital Encounter [facility] [address] [place] [address] [facility], External Provider [address] [place] [address] Discharge Disposition: Home or Self Care Social [...] Associated Diagnosis Comments MAMMO PRIOR STUDY Routine 07/30/2020 7:5 0 AM CDT Follow-up exam documented in this encounter Results * MAMMO PRIOR STUDY (07/30/2020 7:50 AM CDT) Narrative 05/16/2021 7:42 AM CDT This exam was auto finalized to allow images to be scanned to PACS. External Provider [facility] DIAGNOSTIC IMAGI NG ORDERABLES documented in this encounter Visit Diagnoses Diagnosis Follow-up exam Unspecified follow-up examination documented in this encounter
--- OUTSIDE RECORDS SUMMARY | 2024-02-17 14:01 | XMS_ITS | Encounter Summary ---
Author Organization [facility] Address [address] [place] [address] Care Team Providers Care Help Aid Name Role Phone Wilner Gutierrez DO Primary Care Provider Encounter Details Date Type Department Care Team (Late st Contact Info) Description 05/09/2021 Orders Only [facility] BREAST SURGERY - [place] [facility] [address] [facility] [address] [place] [address] Provider, Abstract NO ADDRESS ON FILE Social History Tobacco Use Types Packs/Day Years [...] Name Priority Date/Time Associated Diagnosis Comments MAMMO DIAG BILAT 3D GHAZALA W O R WO CAD Routine 09/17/2020 MAMMO BREAST US LEFT LTD Routine 07/30/2020 MAMMO BREAST US RIGHT LTD Routine 07/30/2020 documented in this encounter Results * MAMMO DIAG BILAT 3D GHAZALA W OR WO CAD (09/17/2020) Anatomical Region Laterality Modality Breast Bilateral Other Abstract Provider MAMMO ORDERABLES * MAMMO BREAST US LEFT LTD (07/30/2020) Anatomical Region Laterality Modality Left Other Abstract Provider MAMMO ORDERABLES * MAMMO BREAST US RIGHT LTD (07/30/2020) Anatomical Region Laterality Modality Right Other Abstract Provider MAMMO ORDERABLES documented in this encounter Visit Diagnoses Not on filedocumented in this encounter Care Teams Help Aid Relationship Specialty Start Date End Date Wilner Gutierrez DO [address] [facility] [address] [facility] [address] [place] [address] PCP - General Surgery 05/09/21 documented as of this encounter
--- OUTSIDE RECORDS SUMMARY | 2024-02-17 14:01 | XMS_ITS | Encounter Summary ---
Author Organization [facility] Address [address] [place] [address] Care Team Providers Care Pelt Dropper Name Role Phone Unavailable Primary Care Provider Unavailabl e Encounter Details Date Type Department Care Team (Latest Contact Info) Description 09/17/2020 7:45 AM CDT - 09/17/2020 11:59 PM CDT Hospital Encounter [facility] [address] [place] [address] [facility], External Provider [address] [place] [address] Discharge Disposition: Home or Self Care Social [...] Diagnosis Comments MAMMO PRIOR STUDY Routine 09/17/2020 7:4 5 AM CDT Follow-up exam documented in this encounter Results * MAMMO PRIOR STUDY (09/17/2020 7:45 AM CDT) Narrative 05/16/2021 7:41 AM CDT This exam was auto finalized to allow images to be scanned to PACS. External Provider [facility] DIAGNOSTIC IMAGI NG ORDERABLES documented in this encounter Visit Diagnoses Diagnosis Follow-up exam Unspecified follow-up examination documented in this encounter
--- OUTSIDE RECORDS SUMMARY | 2024-02-17 14:01 | XMS_ITS | Encounter Summary ---
Author Organization [facility] Address [address] [place] [address] Care Team Providers Care Tumble Tailstock Turret Lathe Operator Name Role Phone Brenda Wilner Adma CARTAGENA Primary Care Provider Reason for Visit * Auth/Cert Specialty Diagnoses / Procedures Referred By Kimberley barrios Referred To Contact Perioperative Diagnoses Discharge from left nipple Procedures NM EXCISE BREAST CYST NM NIPPLE EXPLORATION LEFT BREAST NIPPLE EXPLORATION AND BIOPSY [facility] [address] [facility] [address] [place] [address] Referral ID Status Reason Start Date Expiration Date Visits Re quested Visits Authorized [id number] 1 1 Encounter Details Date Type Department Care Team (Late st Contact Info) Description 05/30/2021 2:26 PM CDT Anesthesia Event [facility] [place] ANNALISA MEAGAN [address] [facility] [address] [place] [address] Reena Delaney MD [address] [place] [address] Anesthesia Record Procedure Summary Procedure Name Responsible Anesthesiologist Anesthesia Start Time Anesthesia Stop Time LEFT BREAST NIPPLE EXPLORATION AND BIOPSY (Left: Breast) Reena Delaney MD 05/30/21 1426 05/30/21 1515 Events Date Time Event Comment 05/30/2021 1333 1423 AN Equip Check Anesthesia eq uipment and materials checked in accordance with local policy. 1426 An Start 1426 An Start Data 1427 In Room This event disp lays the In Room time documented in the Surgical Log. Deleting this event will not remove it from the log but will remove it from the Grid and Graph timeline. 1428 Pre-Induction Immediate pre- induction anesthetic assessment performed. Vital signs as noted on graphic. 1430 An Induction 1431 Anesthesia Ready 1441 Procedure Start This event d isplays the Procedure Start time documented in the Surgical Log. Deleting this event will not remove it from the log but will remove it from the Grid and Graph timeline. 1510 Procedure Stop This event di splays the Procedure Stop time documented in the Surgical Log. Deleting this event will not remove it from the log but will remove it from the Grid and Graph timeline. 1511 an stop data 1512 Out of Room This event disp lays the Out of Room time documented in the Surgical Log. Deleting this event will not remove it from the log but will remove it from the Grid and Graph timeline. 1515 An Stop 1515 Hand-off to Receiving Clinic janiya Post-Anesthetic transfer of care report elements to appropriate post-anesthesia recovery environment completed in accordance with procedure. Meds Name Total midazolam PF (VERSED) 5 mg/mL injection 2.5 mg fentaNYL (SUBLIMAZE) PF 50??mcg/mL injec tion 100 mcg lidocaine PF (XYLOCAINE MPF) 20 mg/mL sy ringe 60 mg propofol (DIPRIVAN) 10??mg/mL injection 100 mg propofol (DIPRIVAN) 10??mg/mL injection 306.66 mg dexamethasone (DECADRON) 4 mg/mL injecti on 4 mg ondansetron (ZOFRAN) 4??mg/2 mL injectio n 4 mg ceFAZolin in sterile water ( ANCEF) 2 gram/20 mL IV Syringe (PREMIX) 2,000 mg 2,000 mg lactated ringers infusion 0 mL * Agents Name Sevoflurane % Sevoflurane O2 N2O Inspired N2O O2 * Blood No blood administrations on file. Lines, Drains, and Airways Type Details Placement Removal Peripheral IV Pre-Hospital Start: No; Orientation: Posterior, Right; Location: Hand; Device: Angiocath; Gauge: 20 gauge; Needle Length: 1 in length; Insertion Attempts: 1; Patient Tolerance: tolerated well; Removal Indication: no longer indicated; Removal Interventions: direct pressure 05/30/21 1240 by Daksha Shelley RN 05/30/21 1548 by Mylene Martinez RN Wound 05/30/21; 1443; No; 1; Left; breast; surgical; 05/30/21; 1548 05/30/21 1443 by Gissel Swanson RN 05/30/21 1548 by Mylene Martinez RN documented in this encounter Social History Tobacco [...] PM CDT documented as of this encounter OR Notes * Anesthesia Postprocedure Evaluation - Reena Delaney MD - 05/30/2021 4:08 PM CDT Post Anesthesia Evaluation Vitals: Vitals Value Taken Time BP 107/70 05/30/21 1549 Temp 36.3 ??C 05/30/21 1513 Resp 13 05/30/21 1552 SpO2 93 % 05/30/21 1552 Pulse 76 05/30/21 1552 Heart Rate 76 bpm 05/30/21 1552 Vitals shown include unvalidated device data. Pain Rating: Anesthesia Post Evaluation Patient location during evaluation: PACU Patient participation: patient was able to participate in the post op evaluation Level of consciousness: 0 = alert, responsive, answers simple questions appropriately, able to perform simple tasks Pain management: adequate Airway patency: patent Nausea or Vomiting: none Cardiovascular status: regular rate and rhythm Respiratory status: no respiratory symptoms Hydration status: well hydrated No complications documented. Reena Delaney MD * Anesthesia Handoff - Anusha Correia AA-C - 05/30/2021 3:15 PM CDT Post-Anesthetic transfer of care report elements to appropriate post-anesthesia recovery environment completed in accordance with procedure. I completed my handoff to the receiving nurse during which we: 1. Identified the patient 2. Identified the responsible provider 3. Reviewed the pertinent medical history 4. Discussed the surgical course 5. Reviewed intra-op anesthesia management and issues during anesthesia 6. Set expectations for post-procedure period 7. Orders as necessary and appropriate for continuation of care are present in Epic. 8. Allowed opportunity for questions and acknowledgement of understanding. Vital Signs: See anesthetic record 3:15 PM CLAUDIA Chicas * Anesthesia Preprocedure Evaluation - Reena Delaney MD - 05/30/2021 1:33 PM CDT Relevant Problems No relevant active problems Anesthesia Evaluation Patient summary reviewed and Nursing notes reviewed Airway Mallampati: I TM distance: >3 FB Neck ROM: full Dental - normal exam Pulmonary - negative ROS and normal exam breath sounds clear to auscultation Cardiovascular - negative ROS and normal exam Exercise tolerance: good Rhythm: regular Rate: normal Neuro/Psych - negative ROS GI/Hepatic/Renal - negative ROS Endo/Other - negative ROS Abdominal - normal exam Anesthesia History No history of anesthetic complications. Anesthesia Plan ASA Final: 1 MAC Intravenous induction Mask airway maintenance NPO status > 8 hours Anesthetic plan and risks discussed with Patient. Plan discussed with Anesthesiologist Local Operator and Surgeon. Post-op Pain Control Plan to use IV or IM medication for post-op pain control. Plan for postoperative opioid use documented in this encounter Plan of Treatment Not on file documented as of this encounter Visit Diagnoses Not on filedocumented in this encounter Administered Medications Inactive Administered Medications - up to 3 most recent administrations Medication Order MAR Action Action Date Dose Rate Site ceFAZolin in sterile water (ANCEF) 2 gram/20 mL IV Syringe (PREMIX) 2,000 mg 2,000 mg, IV, PRE-PROCEDURE ONCE, 1 dose, Starting on Sun05/30/21 at 1219, Until Sun05/30/21 at 1436, Routine, Pre-op, Antibiotic Indication: Surgical prophylaxis Given 05/30/2021 2:31 PM CDT 2,000 mg dexamethasone (DECADRON) injection IV, INTRA-PROCEDURE PRN, Starting on Sun05/30/21 at 1433, Until Sun05/30/21 at 1515, Routine, Anesthesia Intra-op Given 05/30/2021 2:33 PM CDT 4 mg fentaNYL PF (SUBLIMAZE) 50 mcg/mL injection IV, INTRA-PROCEDURE PRN, Starting on Sun05/30/21 at 1428, Until Sun05/30/21 at 1515, Routine, Anesthesia Intra-op Given 05/30/2021 2:40 PM CDT 50 mcg Given 05/30/2021 2:28 PM CDT 50 mcg lactated ringers infusion IV, at 150 mL/hr, PRE-PROCEDURE CONTINUOUS, Starting on Sun05/30/21 at 1230, Until Sun05/30/21 at 1804, Routine, Pre-op Continue from Pre-Op 05/30/2021 2:26 PM CDT 1 50 mL/hr New Bag 05/30/2021 12:41 PM CDT 150 mL/hr lidocaine (PF) (XYLOCAINE MPF) 60 mg/3 mL (2 %) injection syringe IV, INTRA-PROCEDURE PRN, Starting on Sun05/30/21 at 1430, Until Sun05/30/21 at 1515, Routine, Anesthesia Intra-op Given 05/30/2021 2:30 PM CDT 60 mg midazolam (PF) (VERSED) injection IV, INTRA-PROCEDURE PRN, Starting on Sun05/30/21 at 1426, Until Sun05/30/21 at 1515, Routine, Anesthesia Intra-op Given 05/30/2021 2:26 PM CDT 2.5 mg ondansetron (ZOFRAN) 4 mg/2 mL injection IV, INTRA-PROCEDURE PRN, Starting on Sun05/30/21 at 1455, Until Sun05/30/21 at 1515, Routine, Anesthesia Intra-op Given 05/30/2021 2:55 PM CDT 4 mg propofoL (DIPRIVAN) injection IV, INTRA-PROCEDURE PRN, Starting on Sun05/30/21 at 1430, Until Sun05/30/21 at 1515, Anesthesia Intra-op Given 05/30/2021 2:30 PM CDT 100 mg propofoL (DIPRIVAN) injection IV, INTRA-PROCEDURE CONTINUOUS PRN, Starting on Sun05/30/21 at 1431, Until Sun05/30/21 at 1515, Anesthesia Intra-op Rate Change 05/30/2021 2:57 PM CDT 75 mcg/kg/min 36.315 mL/hr Rate Change 05/30/2021 2:52 PM CDT 100 mcg/kg/min 48.42 mL /hr New Bag 05/30/2021 2:31 PM CDT 150 mcg/kg/min 72.63 mL/ hr documented in this encounter Care Teams Tumble Tailstock Turret Lathe Operator Relationship Specialty Start Date End Date Wilner Gutierrez DO [address] [facility] [address] [place] [phone] PCP - General Surgery 05/09/21 documented as of this encounter
--- OUTSIDE RECORDS SUMMARY | 2024-02-17 14:01 | XMS_ITS | Encounter Summary ---
Author Organization [facility] Address [address] [place] [address] Care Team Providers Care Manufacturing Engineer Paint Name Role Phone Unavailable Primary Care Provider Unavailabl e Encounter Details Date Type Department Care Team (Latest Contact Info) Description 09/17/2020 8:15 AM CDT - 09/17/2020 11:59 PM CDT Hospital Encounter [facility] [address] [place] [address] [facility], External Provider [address] [place] [address] Discharge Disposition: Home or Self Care Social [...] Diagnosis Comments MAMMO PRIOR STUDY Routine 09/17/2020 8:1 5 AM CDT Follow-up exam documented in this encounter Results * MAMMO PRIOR STUDY (09/17/2020 8:15 AM CDT) Narrative 05/16/2021 8:12 AM CDT This exam was auto finalized to allow images to be scanned to PACS. External Provider [facility] DIAGNOSTIC IMAGI NG ORDERABLES documented in this encounter Visit Diagnoses Diagnosis Follow-up exam Unspecified follow-up examination documented in this encounter
--- OUTSIDE RECORDS SUMMARY | 2024-02-17 14:01 | XMS_ITS | Encounter Summary ---
Author Organization [employer] Address [address] [place] [address] Care Team Providers Care Ekg Manager Name Role Phone Unavailable Primary Care Provider Unavailabl e Encounter Details Date Type Department Care Team (Latest Contact Info) Description 02/11/2021 7:40 AM TRIM TECHNICIAN - 02/11/2021 11:59 PM TRIM TECHNICIAN Hospital Encounter [facility] [address] [place] [phone] [facility], External Provider [address] [place] [address] Discharge Disposition: Home or Self Care Social [...] Name Priority Date/Time Associated Diagnosis Comments MRI PRIOR STUDY Routine 02/11/2021 7:40 AM TRIM TECHNICIAN Follow-up exam documented in this encounter Results * MRI PRIOR STUDY (02/11/2021 7:40 AM TRIM TECHNICIAN) Narrative 05/16/2021 7:37 AM CDT This exam was auto finalized to allow images to be scanned to PACS. External Provider [facility] MR ORDERABLES documented in this encounter Visit Diagnoses Diagnosis Follow-up exam Unspecified follow-up examination documented in this encounter
--- OUTSIDE RECORDS SUMMARY | 2024-02-17 14:01 | XMS_ITS | Encounter Summary ---
Author Organization [facility] Address [address] [place] [address] Care Team Providers Care Solar Crew Member Name Role Phone Wilner Gutierrez DO Primary Care Provider Reason for Visit * Auth/Cert Specialty Diagnoses / Procedures Referred By Kimberley barrios Referred To Contact Perioperative Diagnoses Discharge from left nipple Procedures LA EXCISE BREAST CYST LA NIPPLE EXPLORATION LEFT BREAST NIPPLE EXPLORATION AND BIOPSY [facility] [address] [facility] [address] [place] [address] Referral ID Status Reason Start Date Expiration Date Visits Re quested Visits Authorized [id number] 1 1 Encounter Details Date Type Department Care Team (Late st Contact Info) Description 05/30/2021 1:42 PM CDT - 05/30/2021 2:59 PM CDT Surgery [facility] SURGERY [facility] [address] [facility] [address] [place] [address] [place] [address] [facility] [address] [place] [address] LEFT BREAST NIPPLE EXPLORATION AND BIOPSY Surgery Details Date/Time Status Location OR Service Patient Class Case Class Case Type Trauma Case? 05/30/2021 1:42 PM Posted STLO CC OR CC OR 02 General Surgery Surgical OP/Extended Care Elective No Panel 1 Procedure LRB Anes Op Region Wound Class Comments LEFT BREAST NIPPLE EXPLORATION AND BIOPSY Left Monitored Anesthetic Care Breast Clean-I Surgeon Surgeon Role Service Panel Davida Reed MD Primary General Surgery 1 documented in this encounter Social History Tobacco [...] Sign Reading Time Taken Comments Blood Pressure 110/70 05/30/2021 12:35 PM CDT Pulse 76 05/30/2021 12:32 PM CDT Temperature 37.1 ??C (98.7 ??F) 05/30/2021 12:32 PM C DT Respiratory Rate 14 05/30/2021 12:32 PM CDT Oxygen Saturation 97% 05/30/2021 12:32 PM CDT Inhaled Oxygen Concentration - - [...] or higher, or urgent breast questions at [phone]. Report to the Emergency Room if any [...] 2:46 PM CDT Discharge from left nipple LA EXC CYST/ABERRANT BREAST TISSUE OPEN 1/> LESION 05/30/2021 1:42 PM CDT Discharge from left nipple POC , URINE Routine 05/30/2021 12:25 PM CDT documented in this encounter Results * PATHOLOGY (05/30/2021 2:46 PM CDT) CASE REPORT Surgical Pathology Report ? Case: [id number] ? Authorizing Provider: ??Davida Reed MD ? Collected: ? 05/30/2021 02:46 PM ? Ordering Location: ? [facility] ?? Received: ?05/30/2021 03:00 PM ? [facility] ? Pathologist: ? Glory Palumbo MD ? Specimen: ?Nipple, left, left subareolar tissue ss/ll ? 2 10:27 AM CDT [facility] FINAL DIAGNOSIS Breast, left subareolar, excisional biopsy: - Mild fibrocystic change. - Microcalcifications. 2 10:27 AM [facility] NOSIS COMMENT Patient's history of clear or bloody left nipple discharge is noted. 2 10:27 AM [facility] GROSS DESCRIPTION The specimen is received in [...] margin), perpendicular sections. MM 2 10:27 AM [facility] MICROSCOPIC DESCRIPTION The slides are labeled [id number] and Roxana Briseno. The excision of left [...] luminal microcalcifications are noted. 2 10:27 AM [facility] OPERATIVE PROCEDURE 1: BREAST BIOPSY 2 10:27 AM [facility] CLINICAL INFORMATION Discharge from left nipple [N64.52] 2 10:27 AM [facility] COMMENT Special stain, immunohistochemical, and/or in situ hybridization results are interpreted with controls that demonstrate appropriate staining reactions. Note on use of immunohistochemistry reagents and in situ hybridization probes: These tests were developed and their performance characteristics determined by [facility], Department of Laboratory Medicine. It has not [...] part or completely in the following laboratories: [facility], CLIA #[id number] [address] [place] [address] [facility], CLIA #[id number] [address] [place] [address] [facility], CLIA #[id number] [address] [place] [address] This report was created with the [employer] voice-activated dictation system. Inherent to this system is the possibility of syntax, grammar, punctuation and other errors that could impact the interpretation of the report. If there are interpretative questions about aspects of this report, please contact the performing pathologist. 10:27 AM CDT [facility] Tissue ENTIRE NIPPLE / Unknown Collection / Unknown 05/30/2021 2:46 PM CDT 05/30/2021 3:00 PM CDT Davida Reed MD PATHOLOGY/CYTOLOGY O RDERABLES [id number] [address] [place] [address] * POC , URINE (05/30/2021 12:25 PM CDT) HCG QUAL URINE Negative Negative 05/30/2021 12:25 PM CDT [facility] RADIOLOG[facility] MULTI SITE/OPS [place] Urine 05/30/2021 12:2 5 PM CDT 05/30/2021 1:16 PM CDT Davida Reed MD POINT OF CARE TESTIN G [facility] MULTI SITE/OPS [place] CLIA # [id number] [address] [place] [address] documented in this encounter Visit Diagnoses Diagnosis Discharge from left nipple Discharge from left nipple documented in this [...] 1241 (New Bag - Prov ider: Daksha Ennis RN)1426 (Continue from Pre-Op - Provider: CLAUDIA Chicas)1548 (Stopped - Provider: Mylene Martinez RN) PRN Medication Order 05/28/2021 05/29/2021 05/30/2021 bupivacaine [...] Routine documented in this encounter Care Teams Solar Crew Member Relationship Specialty Start Date End Date Wilner Gutierrez DO [address] [facility] [address] [place] [address] PCP - General Surgery 05/09/21 documented as of this encounter
--- OUTSIDE RECORDS SUMMARY | 2024-02-17 14:01 | XMS_ITS | Encounter Summary ---
Author Organization [facility] Address [address] [facility] Attn: Epic Prelude ADT [place] [address] Care Team Providers Care Event Attendant Name Role Phone Wilner Gutierrez DO Primary Care Provider Encounter Details Date Type Department Care Team (Latest Contact Info) Description 05/30/2021 Travel Social History Tobacco Use Types Packs/Day [...] on filedocumented in this encounter Care Teams Event Attendant Relationship Specialty Start Date End Date Wilner Gutierrez DO [address] [facility] [address] [place] [address] PCP - General Surgery 05/09/21 documented as of this encounter
--- OUTSIDE RECORDS SUMMARY | 2024-02-17 14:01 | XMS_ITS | Encounter Summary ---
Author Organization [facility] Address [address] [place] [address] Care Team Providers Care Leather Cartridge Belt Maker Name Role Phone Unavailable Primary Care Provider Unavailabl e Encounter Details Date Type Department Care Team (Latest Contact Info) Description 01/20/2021 7:[address] LIGHT SERVICER HELPER - 01/20/2021 11:[address] LIGHT SERVICER HELPER Hospital Encounter [facility] [address] [place] [address] [facility], External Provider [address] [place] [address] Discharge Disposition: Home or Self Care Social [...] Associated Diagnosis Comments MAMMO PRIOR STUDY Routine 01/20/2021 7:[address] LIGHT SERVICER HELPER Follow-up exam documented in this encounter Results * MAMMO PRIOR STUDY (01/20/2021 7:[address] LIGHT SERVICER HELPER) Narrative 05/16/2021 7:31 AM CDT This exam was auto finalized to allow images to be scanned to PACS. External Provider [facility] DIAGNOSTIC IMAGI NG ORDERABLES documented in this encounter Visit Diagnoses Diagnosis Follow-up exam Unspecified follow-up examination documented in this encounter
--- OUTSIDE RECORDS SUMMARY | 2024-02-17 14:01 | XMS_ITS | Encounter Summary ---
Author Organization [facility] Address [address] [place] [address] Care Team Providers Care Executive Personal Assistant Name Role Phone Unavailable Primary Care Provider Unavailabl e Encounter Details Date Type Department Care Team (Latest Contact Info) Description 12/08/2020 7:35 AM CDT - 12/08/2020 11:59 PM CDT Hospital Encounter [facility] MRI [place] [address] [place] [address] [facility], External Provider [address] [place] [address] Discharge Disposition: Home or Self Care Social [...] Associated Diagnosis Comments MRI PRIOR STUDY Routine 12/08/2020 7:35 AM CDT Follow-up exam documented in this encounter Results * MRI PRIOR STUDY (12/08/2020 7:35 AM CDT) Narrative 05/16/2021 7:32 AM CDT This exam was auto finalized to allow images to be scanned to PACS. External Provider [facility] MR ORDERABLES documented in this encounter Visit Diagnoses Diagnosis Follow-up exam Unspecified follow-up examination documented in this encounter
--- OUTSIDE RECORDS SUMMARY | 2024-02-17 14:01 | XMS_ITS | Encounter Summary ---
Author Organization [facility] Address [address] [place] [address] Care Team Providers Care Tree Trimming Line Technician Name Role Phone Unavailable Primary Care Provider Unavailabl e Encounter Details Date Type Department Care Team (Latest Contact Info) Description 07/30/2020 7:45 AM CDT - 07/30/2020 11:59 PM CDT Hospital Encounter [facility] [address] [place] [address] [facility], External Provider [address] [place] [address] Discharge Disposition: Home or Self Care Social [...] Diagnosis Comments MAMMO PRIOR STUDY Routine 07/30/2020 7:4 5 AM CDT Follow-up exam documented in this encounter Results * MAMMO PRIOR STUDY (07/30/2020 7:45 AM CDT) Narrative 05/16/2021 7:42 AM CDT This exam was auto finalized to allow images to be scanned to PACS. External Provider [facility] DIAGNOSTIC IMAGI NG ORDERABLES documented in this encounter Visit Diagnoses Diagnosis Follow-up exam Unspecified follow-up examination documented in this encounter
--- OUTSIDE RECORDS SUMMARY | 2024-02-17 14:01 | XMS_ITS | Encounter Summary ---
Author Organization [facility] Address [address] [place] [address] Care Team Providers Care Outsole Flexer Name Role Phone Brenda Wilner Adam CARTAGENA Primary Care Provider Reason for Visit * Reason Comments Surgical Consult Left breast fibroade noma Encounter Details Date Type Department Care Team (Late st Contact Info) Description 05/09/2021 1:15 PM CDT Office Visit [facility] BREAST SURGERY - [place] [facility] [address] [place] [address] [place] [address] [place] [address] Nipple discharge, bloody (Primary Dx) [...] Sign Reading Time Taken Comments Blood Pressure 110/72 05/09/2021 1:32 PM CDT Pulse - - Temperature - - Respiratory Rate - - Oxygen Saturation - - Inhaled Oxygen Concentration - - Weight 82.6 kg (182 lb) 05/09/2021 1:32 PM CDT Height 165.1 cm (5' 5 ) 05/09/2021 1:32 PM CDT Body Mass Index 30.29 05/09/2021 1:32 PM CDT documented in this encounter Progress Notes * Davida Reed MD - 05/09/2021 3:57 PM CDT PATIENT: Roxana Briseno : 1990 DATE: 05/09/2021 CHIEF COMPLAINT: Left breast nipple discharge and pain HISTORY OF PRESENT ILLNESS: Roxana Briseno is a 31 y.o. female who presents to clinic for evaluation and recommendations regarding a left breast nipple discharge and pain. She notes her symptoms began years ago. She has spontaneous bloody and clear left nipple discharge. She notes sharp shooting pains all over her breast. She denies any masses or skin changes. Has a history of bilateral nipple piercing which are removed. She does not drink caffeine and had a professional bra fitting last month Menarche age 17 Premenopausal No oral contraceptive pills No hormone replacement therapy No previous breast biopsies No chest radiation Family history of breast cancer maternal grandmother x 2, paternal aunt PMH: No past medical history on file. PSH: Past Surgical History: Procedure Laterality Date ??? HX CHOLECYSTECTOMY ALLERGY: Allergies Allergen Reactions ??? Latex Hives Hives ??? Morphine Hives and Itching Itching ??? Vancomycin Hives Itching ??? Tramadol Itching MEDS: Current Outpatient Medications Medication Sig Dispense Refill ??? hydrOXYzine HCL (ATARAX) 25 mg tablet TAKE 1 TABLET BY MOUTH EVERY DAY AT BEDTIME FOR 30 DAYS ??? triamcinolone acetonide (KENALOG) 0.1 % Cream No current facility-administered medications for this visit. FHX: Family History Problem Relation Name Age of Onset ??? Breast Cancer Neg Hx SOC: Social History Socioeconomic History ??? Marital status: Spouse name: Not on file ??? Number of children: Not on file ??? Years of education: Not on file ??? Highest education level: Not on file Occupational History ??? Not on file Tobacco Use ??? Smoking status: Never Smoker ??? Smokeless tobacco: Never Used Vaping Use ??? Vaping Use: Unknown Substance and Sexual Activity ??? Alcohol use: Never ??? Drug use: Never ??? Sexual activity: Not on file Other Topics Concern ??? Not on file Social History Narrative Age @ onset of menses:17 Age @ first live : Social Determinants of Health Financial Resource Strain: Not on file Food Insecurity: Not on file Transportation Needs: Not on file Physical Activity: Not on file Stress: Not on file Social Connections: Not on file Intimate Partner Violence: Not on file Housing Stability: Not on file ROS: Constitutional: Negative for fever, weight loss and malaise/fatigue. Respiratory: Negative for cough. Cardiovascular: Negative for chest pain and leg swelling. Gastrointestinal:. Negative for abdominal pain. Genitourinary: Negative for dysuria. Musculoskeletal: Negative for myalgias and joint pain. Skin: Negative for rash. Neurological: Negative for dizziness and headaches. Psychiatric/Behavioral: Negative for depression Female: OB History No obstetric history on file. The remainder of the review of systems including cardiovascular, pulmonary, GI/, neurologic, and endocrine are negative except as noted above. Immunizations: non-contributory PHYSICAL EXAM: BP 110/72 Ht 5' 5 (1.651 m) Wt 82.6 kg (182 lb) LMP 03/31/2021 (Exact Date) BMI 30.29 kg/m?? General: well-developed, well-nourished HEENT: normocephalic/atraumatic. Extra-occular movements are intact. Sclera anicteric. Neck is supple without masses. Mask in place. No lymphadenopathy. Cardiovascular: Regular rate Lungs: normal respiratory effort Abdomen: Soft, non-tender. Non distended. No masses. Extremities: Equal range of motion Neurologic: sensory and motor grossly intact. Alert and oriented x 3. Breasts: Examined in upright and supine position. Breasts symmetric. Breast size 36DD. Nipples are everted. Nipples are of normal caliber and projection. Healed piercing scars bilaterally. No masses,skin changes, or nipple discharge Lymphatics: no axillary, cervical, or supraclavicular adenopathy IMAGING: I personally reviewed imaging dated: 12/2020 Bilateral breast MRI. BIRADS 0 left. 8 mm mass with rapid enhancement 01/2021 left breast ultrasound. BIRADS IV. Biopsy recommended. PATHOLOGY: 02/14/21 left breast MRI guided biopsy. Fibroadenoma. Fibrocystic change, no atypia. ASSESSMENT AND PLAN: 31 y/o F with left breast nipple discharge and pain. -I personally reviewed imaging and pathology results with the patient. -Bloody/clear nipple discharge is pathologic nipple discharge usually secondary to intraductal papilloma with up to a 10% chance of pathologic upgrade to malignancy and exploration and subareolar biopsy recommended. Will plan for left breast ductal exploration and subareolar biopsy. -The risks, benefits, and alternatives to the procedure including, but not limited to, bleeding, infection, hematoma, seroma, cosmetic alteration, paresthesias, lymphedema, inability to breastfeed, nipple changes, and need for further surgery or procedures were discussed with Ms. Briseno and she consents to the procedure. -CBC, CMP, and EKG pre-op. -Recommendations for breast pain include a professional bra fitting, wear a supportive bra, heat/ice to the area, Vitamin E, and Evening primrose oil. -All patient questions encouraged and answered to her satisfaction. She is encouraged to call, message, or return to clinic sooner if any additional questions or concerns. Davida Reed MD cc: Wilner Gutierrez, documented in this encounter Plan of Treatment Scheduled Orders Name Type Priority Associated Diagnoses Orde r Schedule EKG 12-LEAD ECG Routine Nipple discharge, bloody Ordered: 05/09/2021 documented as of this encounter Procedures Procedure Name Priority Date/Time Associated Diagnosis Comments CBC WITH DIFFERENTIAL Routine 05/09/2021 2:17 PM CDT Nipple discharge, bloody COMPREHENSIVE METABOLIC PANEL Routine 05/09/2021 2:17 PM CDT Nipple discharge, bloody documented in this encounter Results * COMPREHENSIVE METABOLIC PANEL (05/09/2021 2:17 PM CDT) GLUCOSE 82 65 - 99 mg/dL [facility] Comment: ? Fasting reference interval BUN 16 7 - 25 mg/dL [facility] CREATININE 0.68 0.50 - 1.10 mg/dL [facility] GFR 118 > OR = 60 mL/min/1. 73m2 [facility] GFR, 137 > OR = 60 mL/min/1. 73m2 [facility] BUN/CREAT RATIO NOT APPLICABLE 6 - 22 (calc) [facility] SODIUM 138 135 - 146 mmol/L [facility] POTASSIUM 4.2 3.5 - 5.3 mmol/L [facility] CHLORIDE 104 98 - 110 mmol/L [facility] CO2 28 20 - 32 mmol/L [facility] CALCIUM 9.3 8.6 - 10.2 mg/dL [facility] TOTAL PROTEIN 6.7 6.1 - 8.1 g/dL [facility] ALBUMIN 4.5 3.6 - 5.1 g/dL [facility] GLOBULIN 2.2 1.9 - 3.7 g/dL (calc) [facility] ALBUMIN/GLOBULI N RATIO 2.0 1.0 - 2.5 (calc) [facility] BILIRUBIN TOTAL 0.5 0.2 - 1.2 mg/dL [facility] ALKALINE PHOSPHATASE 64 31 - 125 U/L [facility] AST 13 10 - 30 U/L [facility] ALT 17 6 - 29 U/L [facility] Comment: Test Performed at: [facility] [address] ??[phone] Chase Maddox D.O., MPH Blood 05/09/2021 2:17 PM CDT 05/09/2021 2:18 PM CDT Davida Reed MD CHEMISTRY ORDERABLES [facility] [address] [place] [address] * CBC WITH DIFFERENTIAL (05/09/2021 2:17 PM CDT) WBC 8.9 3.8 - 10.8 Thousand/u L [facility] RBC 4.32 3.80 - 5.10 Million/uL [facility] HEMOGLOBIN 12.4 11.7 - 15.5 g/dL [facility] HEMATOCRIT 38.4 35.0 - 45.0 % [facility] MCV 88.9 80.0 - 100.0 fL [facility] MCH 28.7 27.0 - 33.0 pg [facility] MCHC 32.3 32.0 - 36.0 g/dL [facility] RDW 12.9 11.0 - 15.0 % [facility] PLATELETS 365 140 - 400 Thousand/u L [facility] MPV 10.2 7.5 - 12.5 fL [facility] NEUTROPHIL ABSOLUTE 5,215 1,500 - 7,800 cells/uL [facility] LYMPHOCYTE ABSOLUTE 2,777 850 - 3,900 cells/uL [facility] MONOCYTE ABSOLUTE 730 200 - 950 cells/uL [facility] EOSINOPHIL ABSOLUTE 98 15 - 500 cells/uL [facility] BASOPHILS ABSOLUTE 80 0 - 200 cells/uL [facility] NEUTROPHIL 58.6 % [facility] LYMPHOCYTES 31.2 % [facility] MONOCYTE 8.2 % [facility] EOSINOPHILS 1.1 % [facility] BASOPHILS 0.9 % [facility] Comment: FASTING:UNKNOWN FASTING: UNKNOWN Test Performed at: [facility] [address] [place], [place] ??[address] Chase Maddox D.O., MPH Blood 05/09/2021 2:17 PM CDT 05/09/2021 2:18 PM CDT Davida Reed MD HEMATOLOGY ORDERABLE S Performing Organization Address City/State/[facility] Co de Phone Number [facility] [address] [place] [address] documented in this encounter Visit Diagnoses Diagnosis Nipple discharge, bloody- Primary Other sign and symptom in breast documented in this encounter Care Teams Outsole Flexer Relationship Specialty Start Date End Date Wilner Gutierrez DO [address] [facility] [address] [place] [address] PCP - General Surgery 05/09/21 documented as of this encounter
--- OUTSIDE RECORDS SUMMARY | 2024-02-17 14:01 | XMS_ITS | Encounter Summary ---
Author Organization [facility] Address [address] [facility] Attn: Epic Prelude ADT [place] [address] Care Team Providers Care Filteration Operator Name Role Phone Wilner Gutierrez DO Primary Care Provider Encounter Details Date Type Department Care Team (Latest Contact Info) Description 05/09/2021 Travel Social History Tobacco Use Types Packs/Day [...] on filedocumented in this encounter Care Teams Filteration Operator Relationship Specialty Start Date End Date Wilner Gutierrez DO [address] [facility] [address] [place] [address] PCP - General Surgery 05/09/21 documented as of this encounter
== END 2024-02-11 04:09 | disposition home or self-care (01) ==
PROVIDERS: Emergency Provider Emergency Medicine
DX: S09.90XA Unspecified injury of head, initial encounter (principal); S39.012A Strain of muscle, fascia and tendon of lower back, initial encounter; S16.1XXA Strain of muscle, fascia and tendon at neck level, initial encounter; S50.02XA Contusion of left elbow, initial encounter; S80.02XA Contusion of left knee, initial encounter; V44.5XXA Car driver injured in collision with heavy transport vehicle or bus in traffic accident, initial encounter
CPT/HCPCS: 70450; 72125; 72131; 73080; 73562; 81025; 99284